=== PATIENT | male | born 1960 | race Caucasian/White ===

== ENCOUNTER 2016-12-24 12:50 | Observation (INO) | payer MEDICARE, OTHER ==
[2016-12-24] VITALS (8 sets, daily range): BP systolic 119–127; BP diastolic 57–72; PULSE 74–88; RESP 18–24; TEMP 97.2–97.5; O2SAT 88–95
[~2016-12-24] VITALS: Ht 175.3 cm; Wt 102.3 kg
[~2016-12-24 12:50] MED LIST: ALLO100T PO; ALPR0.25 PO; ASPI81TA11 PO; BUME2TAB PO; CLOP75 PO; COLC1TAB7 PO; ISOS30TA17 PO; LYRI50CA2 PO; METO50TA PO; NITR0.4S SL; PACE200T4 PO; POTA1TAB4 PO; RANI300T PO; TAMS0.4C67 PO; TRAM50TA PO; Z.0.OXYGEN INH; ZOCO80TA PO
--- NOTE | 2016-12-24 13:07 | PD ---
HPI Chief Complaint: Chest Pain Time Seen by Provider: 13:02 Travel History International Travel<30 days: No Contact w/Intl Traveler<30days: No Traveled to known affect area: No History of Present Illness HPI 56yo M with PMH of CAD s/p CABG, cardiac stent, CHF s/p AICD placement, COPD presents to the ED with c/o sob, productive cough for about 1 week but worsening. Pt also with chest pain for 1 day. States it is mainly left sided, constant, nonradiating, squeezing. Denies any fever, n/v, abdominal pain, focal weakness or numbness. Pt uses oxygen 2 L NC at home. Pt's behavioral health care manager is Dr. Brice. [facility] Past Medical History Hx Anticoagulant Therapy: Yes Arthritis: Yes Asthma: Yes Autoimmune Disease: No Blood Disorders: No Anxiety: Yes Depression: Yes Heart Rhythm Problems: Yes (V TACH) Cancer: No Cardiac Catheterization: Yes (X9) Cardiovascular Problems: Yes (VTACH, CAD) High Cholesterol: Yes Chemotherapy: No Chest Pain: Yes Congestive Heart Failure: Yes COPD: Yes Cerebrovascular Accident: Yes (TIA) Coronary Artery Disease: Yes Diabetes: No Diminished Hearing: No Endocrine: No Gastrointestinal Disorders: Yes (GERD) GERD: Yes Gout: Yes Genitourinary: Yes (urinary retention ) Headaches: No Hepatitis: No Hiatal Hernia: No Hypertension: Yes Immune Disorder: No Inguinal Hernia: Yes Implanted Vascular Access Dvce: Yes Insomnia: Yes Kidney Stones: Yes Musculoskeletal: Yes (bursitis left elbow ) Neurologic: Yes Parkinson's Disease: Yes Psychiatric: Yes Reproductive: No Respiratory: Yes (COPD) Migraines: No Myocardial Infarction: Yes Radiation Therapy: No Renal Failure: Yes Seizures: No Shingles: Yes Sleep Apnea: Yes Thyroid Disease: No Triglycerides - High: Yes Ulcer: No Tetanus Vaccination: > 5 Years ?: Not Past Surgical History Abdominal Surgery: Yes (INGUINAL HERNIA) AICD: Yes Appendectomy: Yes Arteriovenous Shunt: No Body Medical Devices: stent-cardiac Cardiac Surgery: Yes ( AICD) Cholecystectomy: Yes Coronary Artery Bypass Graft: Yes (X6) Coronary Stent: Yes (X1) Ear Surgery: No Endocrine Surgery: No Eye Surgery: No Genitourinary Surgery: Yes (CYSTOSCOPY) Gynecologic Surgery: No Insulin Pump: No Joint Replacement: No Neurologic Surgery: No Oral Surgery: No Pacemaker: Yes Thoracic Surgery: Yes (STERNOTOMY) Tonsillectomy: Yes Valve Replacement: Yes Other Surgery: Yes (R INGUNIAL HERNIA REPAIR) Family History Family Hypercholesterolemia: Yes Social History Alcohol Use: No Tobacco Use: No Substance Use: No Allergies-Medications (Allergen,Severity, Reaction): Coded Allergies: Percocet (Verified Allergy, Severe, RASH, 06/22/16) Sulfa (Verified Allergy, Severe, HIVES, 06/22/16) Ativan (Verified Adverse Reaction, Severe, 06/22/16) MAKES PT "CRAZY" Reported Meds & Prescriptions Reported Meds & Active Scripts Active Reported Allopurinol 100 Mg Tab 100 Mg PO BID Alprazolam 0.25 Mg Tab 0.25 Mg PO TID PRN Amiodarone (Amiodarone HCl) 200 Mg Tab 200 Mg PO DAILY Aspirin EC (Aspirin) 81 Mg Tabdr 81 Mg PO DAILY Bumetanide 1 Mg Tab 1 Mg PO AC DINNER Bumetanide 2 Mg Tab 2 Mg PO AC BREAKFAST Plavix (Clopidogrel Bisulfate) 75 Mg Tab 75 Mg PO DAILY Colchicine 0.6 Mg Tab 0.6 Mg PO BID Nitroglycerin SL (Nitroglycerin) 0.4 Mg Subl 0.4 Mg SL DIRECTED PRN ONE TABLET UNDER THE TONGUE NEEDED FOR CHEST PAIN, MAY REPEAT EVERY FIVE MINUTES FOR A TOTAL OF 3 DOSES OR CALL 911 IF NO RELIEF K-Tab (Potassium Chloride) 20 Meq Tab 20 Meq PO BID Isosorbide Mononitrate ER (Isosorbide Mononitrate) 30 Mg Adolph 30 Mg PO DAILY Metoprolol Tartrate 25 Mg Tab 25 Mg PO BID Lyrica (Pregabalin) 50 Mg Cap 50 Mg PO TID Ranitidine (Ranitidine HCl) 300 Mg Tab 300 Mg PO DAILY Zocor (Simvastatin) 80 Mg Tab 80 Mg PO HS Tamsulosin (Tamsulosin HCl) 0.4 Mg Cap 0.4 Mg PO DAILY Tramadol (Tramadol HCl) 50 Mg Tab 50 Mg PO Q4H PRN Sodium Chloride Neb (Sodium Chloride) 0.9 % Neb 3 Ml INH BID [Symbicort Capsule] 1 Cap NEB BID NEB Ipratropium Neb (Ipratropium [place]) 0.5 Mg/2.5 Ml Amp 0.5 Mg NEB TID NEB PRN Breo Ellipta Inh (Fluticasone/Vilanterol) 100-25 Mcg/Act Inh 1 Puff INH DAILY Use daily at the same time. Proair Respiclick Inh (Albuterol Sulfate) 90 Mcg/Act Aerp 2 Puff INH Q6H PRN Flovent Hfa 12 GM Inh (Fluticasone Propionate) 110 Mcg/Act Inh 2 Puff INH BID Review of Systems Except as stated in HPI: all other systems reviewed are Neg Physical Exam Narrative GENERAL: 56yo M in moderate distress. SKIN: Warm and dry. HEAD: Atraumatic. Normocephalic. EYES: Pupils equal and round. No scleral icterus. No injection or drainage. ENT: No nasal bleeding or discharge. Mucous membranes pink and moist. NECK: Trachea midline. No JVD. CARDIOVASCULAR: Regular rate and rhythm. No murmur appreciated. RESPIRATORY: Wheezing bilaterally. GASTROINTESTINAL: Abdomen soft, non-tender, nondistended. No rebound tenderness or guarding. MUSCULOSKELETAL: No obvious deformities. No clubbing. No cyanosis. No edema. NEUROLOGICAL: Awake and alert. No obvious cranial nerve deficits. Motor grossly within normal limits. Normal speech. PSYCHIATRIC: Appropriate mood and affect; insight and judgment normal. Data Data Last Documented VS Vital Signs Date Time Temp Pulse Resp B/P Pulse Ox O2 Delivery O2 Flow Rate FiO2 12/24/16 13:41 24 94 Nasal Cannula 12/24/16 13:13 2.00 12/24/16 13:01 80 12/24/16 12:56 119/72 12/24/16 12:52 97.5 Orders Electrocardiogram (12/24/16 ) Complete Blood Count With Diff (12/24/16 13:03) Basic Metabolic Panel (Bmp) (12/24/16 13:03) B-Type Natriuretic Peptide (12/24/16 13:03) Act Partial Throm Time (Ptt) (12/24/16 13:03) Prothrombin Time / Inr (Pt) (12/24/16 13:03) Magnesium (Mg) (12/24/16 13:03) Ckmb (Isoenzyme) Profile (12/24/16 13:03) Troponin I (12/24/16 13:03) Arterial Blood Gas (Abg) (12/24/16 13:03) Influenzae A/B Antigen (12/24/16 13:03) Blood Culture (12/24/16 13:03) Iv Access Insert/Monitor (12/24/16 13:03) Ecg Monitoring (12/24/16 13:03) Oximetry (12/24/16 13:03) Oxygen Administration (12/24/16 13:03) Chest, Single Ap (12/24/16 13:03) Sodium Chloride 0.9% Flush (Ns Flush) (12/24/16 13:15) Methylprednisolone So Succ Inj (Solumedr (12/24/16 13:15) Albuterol-Ipratropium Neb (Duoneb Neb) (12/24/16 13:15) Lactic Acid Sepsis Protocol (12/24/16 13:03) Aspirin Chew (Aspirin Chew) (12/24/16 15:00) Nitroglycerin Sl (Nitrostat Sl) (12/24/16 15:00) Ceftriaxone Inj (Rocephin Inj) (12/24/16 15:00) Azithromycin Inj (Zithromax Inj) (12/24/16 15:00) Admit Order (Ed Use Only) (12/24/16 15:00) Labs Laboratory Tests Test 12/24/16 12/24/16 12/24/16 13:17 13:20 13:50 White Blood Count 12.0 TH/MM3 Red Blood Count 5.18 MIL/MM3 Hemoglobin 14.0 GM/DL Hematocrit 42.6 % Mean Corpuscular Volume 82.2 FL Mean Corpuscular Hemoglobin 27.0 PG Mean Corpuscular Hemoglobin 32.9 % Concent Red Cell Distribution Width 17.2 % Platelet Count 225 TH/MM3 Mean Platelet Volume 9.0 FL Neutrophils (%) (Auto) 80.5 % Lymphocytes (%) (Auto) 7.0 % Monocytes (%) (Auto) 11.0 % Eosinophils (%) (Auto) 0.8 % Basophils (%) (Auto) 0.7 % Neutrophils # (Auto) 9.6 TH/MM3 Lymphocytes # (Auto) 0.8 TH/MM3 Monocytes # (Auto) 1.3 TH/MM3 Eosinophils # (Auto) 0.1 TH/MM3 Basophils # (Auto) 0.1 TH/MM3 CBC Comment DIFF FINAL Differential Comment Prothrombin Time 11.2 SEC Prothromb Time International 1.0 RATIO Ratio Activated Partial 23.4 SEC Thromboplast Time Lactic Acid Level 1.2 mmol/L B-Type Natriuretic Peptide 37 PG/ML Blood Gas Puncture Site LT RADIAL Blood Gas Patient Temperature 98.6 Blood Gas HCO3 31 mmol/L Blood Gas Base Excess 6.6 mmol/L Blood Gas Oxygen Saturation 93 % Arterial Blood pH 7.43 Arterial Blood Partial 48 mmHg Pressure CO2 Arterial Blood Partial 71 mmHG Pressure O2 Arterial Blood Oxygen Content 17.9 Vol % Arterial Blood 1.6 % Carboxyhemoglobin Arterial Blood Methemoglobin 0.6 % Blood Gas Hemoglobin 13.7 G/DL Oxygen Delivery Device NASAL CANNULA Blood Gas Liter Flow 2 L/M Sodium Level 138 MEQ/L Potassium Level 4.9 MEQ/L Chloride Level 100 MEQ/L Carbon Dioxide Level 30.5 MEQ/L Anion Gap 8 MEQ/L Blood Urea Nitrogen 23 MG/DL Creatinine 1.95 MG/DL Estimat Glomerular Filtration 36 ML/MIN Rate Random Glucose 105 MG/DL Calcium Level 8.7 MG/DL Magnesium Level 2.1 MG/DL Total Creatine Kinase 90 U/L Troponin I LESS THAN 0.02 NG/ML MDM Medical Decision Making Medical Screen Exam Complete: Yes Emergency Medical Condition: Yes Interpretation(s) EKG: NSR 77bpm. LAD. LBBB. Q wave III, aVF. Differential Diagnosis Pneumonia vs. COPD exacerbation vs. ACS vs. CHF exacerbation Narrative Course 56yo M with CAD, COPD, CHF here with coughing and sob for 1 week. Pt now also with left sided chest pain today. Labs reviewed, mild leukocytosis at 12.0. BNP 37. Lactic acid normal at 1.2. Troponin negative. BUN/creatinine elevated at 23/1.95 which is at baseline compared to 06/20/16. ABG showed compensated respiratory alkalosis with pH 7.43, pCO2 48 and HCO3 31. Saturation is 93% on 2L NC which is what he is on at home. Pt reevaluated at bedside. Pt states he feels slightly less sob after duonebs x3 and methylprednisolone 125mg IVP. Still with intermittent chest pain on left. Pt took his aspirin 81mg and plavix at home. Pt given another 81mg aspirin and sublingual nitroglycerin PRN chest pain. CXR reviewed by me and appears to have right pleural effusion/infiltrate. Given pt's history of productive cough, elevated WBC, will cover with azithromycin and ceftriaxone. Blood cultures has already been drawn. Official CXR showed scattered atelectatic changes bilaterally and chronic elevation of right hemidiaphragm. Also concern with his chest pain so will admit with serial EKG and cardiac enzymes. Discussed with Dr. Finn and accepted to his service. Diagnosis Primary Impression: Chest pain Qualified Code: R07.9 - Chest pain, unspecified type Admitting Information Admitting Physician Requests: Observation Scripts Guaifenesin ER 12 HR (Mucinex ER 12 HR)600 Mg [id number] Mg PO BID 10 Days Prov:Mahad Finn MD 12/25/16 Prednisone 10 Mg Tab10 Mg PO DIRECTED 10 Days Ref 0 20mg po bid x 3 days, 10mg po bid x 3 days, 10mg po daily x 4 days Prov:Mahad Finn MD 12/25/16 Azithromycin (Zithromax Z-Nilo)250 Mg [id number] Mg PO DIRECTED #1 DSPK Ref 0 500 MG (2 tabs) day 1, then 1 tab days 2-5. Prov:Mahad Finn MD 12/25/16 Amoxicillin-Clavulanate (Augmentin)500-125 mg [id number] Mg PO Q8H 10 Days Ref 0 Prov:Mahad Finn MD 12/25/16 Dannielle Ureña DO Dec 24, 2016 13:07
[2016-12-24] MEDS: RESP: ALBUTEROL 2.5 MG/IPRATROPIUM 0.5 MG NEB (SCH) INH (13:11)
[2016-12-24] MEDS ORDERED: methylPREDNISolone SOD SUCC 125 MG/2 ML VIAL IVP ONE (13:15)
[2016-12-24] MEDS ORDERED: SODIUM CHLORIDE 0.9% FLUSH 5 ML FLUSH IVF PRN (13:15)
[2016-12-24 13:28] LABS: AUTOMATED NEUTROPHIL # 9.6 TH/MM3 (1.8-7.7); BASOPHIL # 0.1 TH/MM3 (0-0.2); BASOPHIL % 0.7 % (0.0-2.0); EOSINOPHIL # 0.1 TH/MM3 (0-0.4); EOSINOPHIL % 0.8 % (0.0-4.0); HEMATOCRIT 42.6 % (39.0-51.0); HEMO FLAGS DIFF FINAL; LYMPHOCYTE # 0.8 TH/MM3 (1.0-4.8); MEAN CELL VOLUME 82.2 FL (80.0-100.0); MEAN CORPUSCULAR HGB CONC 32.9 % (32.0-36.0); NEUT % 80.5 % (16.0-70.0); PLATELET COUNT 225 TH/MM3 (150-450); RED BLOOD COUNT 5.18 MIL/MM3 (4.50-5.90); RED CELL DISTRIBUTION WIDTH 17.2 % (11.6-17.2)
[2016-12-24 13:29] LABS: BLOOD GAS BASE EXCESS 6.6 mmol/L (-2-2); BLOOD GAS CARBOXYHEMOGLOBIN 1.6 % (0-4); BLOOD GAS HCO3 31 mmol/L (22-26); BLOOD GAS METHEMOGLOBIN 0.6 % (0-2); BLOOD GAS O2 HGB SATURATION 93 % (90-100); BLOOD GAS OXYGEN CONTENT 17.9 Vol % (12.0-20.0); BLOOD GAS PCO2 48 mmHg (38-42); BLOOD GAS PO2 71 mmHG (61-120); BLOOD GAS TOTAL HGB 13.7 G/DL (12.0-16.0); CRITICAL VALUE NO; DRAW SITE LT RADIAL; LITER FLOW 2 L/M; NUMBER OF ARTERIAL PUNCTURES 2; OXYGEN DEVICE NASAL CANNULA; STAT YES; TEMP CORR TO 98.6; ULNAR PULSE PRESENT
[2016-12-24 13:39] LABS: PROTHROMBIN TIME - PATIENT 11.2 SEC (9.8-11.6)
[2016-12-24 13:40] LABS: APTT (PATIENT) 23.4 SEC (24.3-30.1)
[2016-12-24 14:25] LABS: ANION GAP 8 MEQ/L (5-15)
[2016-12-24 14:28] LABS: BICARBONATE 30.5 MEQ/L (21.0-32.0); BLOOD UREA NITROGEN 23 MG/DL (7-18); CHLORIDE 100 MEQ/L (98-107); GLOMERULAR FILTRATION RATE 36 ML/MIN (>89); MAGNESIUM 2.1 MG/DL (1.5-2.5); SODIUM (NA) 138 MEQ/L (136-145)
[2016-12-24 14:29] LABS: CREATINE KINASE 90 U/L (39-308); POTASSIUM 4.9 MEQ/L (3.5-5.1)
[2016-12-24] MEDS ORDERED: cefTRIAXone INJ 1,000 MG in SODIUM CHLORIDE 0.9% INJ 100 ML IV ONE ×2 (15:00→17:30)
[2016-12-24] MEDS ORDERED: AZITHROMYCIN INJ 500 MG in SODIUM CHLOR 0.9% 250 ML INJ 250 ML IV ONE (15:00)
[2016-12-24] MEDS ORDERED: ASPIRIN 81 MG CHEW TAB PO ONE (15:00)
--- NOTE | 2016-12-24 15:04 | RADRPT ---
EXAM DATE/TIME: 12/24/2016 13:33 [place] COMPARISON: CHEST SINGLE AP, June 22, 2016, 9:23. INDICATIONS : Shortness of breath. MEDICAL HISTORY : None. SURGICAL HISTORY : None. ENCOUNTER: Initial ACUITY: 1 week PAIN SCORE: 0/10 LOCATION: Bilateral chest FINDINGS: Median sternotomy wires are noted status post cardiac surgery. A left subclavian dual lead pacemaker has its tips in the right atrium and right ventricle. There is no pneumothorax. There is chronic e levation of the right hemidiaphragm. Scattered atelectatic changes are noted bilaterally. CONCLUSION: 1. Scattered atelectatic changes bilaterally. 2. Chronic elevation of the right hemidiaphragm. Rashawn Milligan MD on December 24, 2016 at 14:58 Board Certified Radiologist. This report was verified electronically.
[2016-12-24] MEDS: NITROGLYCERIN 0.4 MG SL 25 TABS/BTL SL SCH ×3 (15:16→16:08)
[2016-12-24] MEDS ORDERED: FLUTI110I INH (15:53)
[2016-12-24] MEDS ORDERED: FLUT1INH INH (15:53)
[2016-12-24] MEDS ORDERED: SYMBICORT NEB (15:53)
[2016-12-24] MEDS ORDERED: ALBU1AER5 INH (15:53)
[2016-12-24] MEDS ORDERED: IPRA0.02 NEB (15:53)
[2016-12-24] MEDS ORDERED: SODI0.9N3 INH (15:54)
[2016-12-24] MEDS ORDERED: LYRI50CA PO (16:03)
[2016-12-24] MEDS ORDERED: BUME2TAB PO (16:03)
[2016-12-24] MEDS ORDERED: NITR1SUB3 SL (16:03)
[2016-12-24] MEDS ORDERED: ALPR0.25 PO (16:03)
[2016-12-24] MEDS ORDERED: RANI300T PO (16:03)
[2016-12-24] MEDS ORDERED: PLAV75TA29 PO (16:03)
[2016-12-24] MEDS ORDERED: ZOCO80TA PO (16:03)
[2016-12-24] MEDS ORDERED: ASPI81TA11 PO (16:03)
[2016-12-24] MEDS ORDERED: ALLO100T PO (16:03)
[2016-12-24] MEDS ORDERED: METO25TA3 PO (16:03)
[2016-12-24] MEDS ORDERED: ISOS30TA3 PO (16:03)
[2016-12-24] MEDS ORDERED: AMIO200T PO (16:03)
[2016-12-24] MEDS ORDERED: POTA1TAB4 PO (16:03)
[2016-12-24] MEDS ORDERED: TAMS0.4C4 PO (16:03)
[2016-12-24] MEDS ORDERED: BUME1TAB PO (16:03)
[2016-12-24] MEDS ORDERED: TRAM50TA PO (16:03)
[2016-12-24] MEDS ORDERED: COLC1TAB15 PO (16:03)
[2016-12-24] MEDS ORDERED: ONDANSETRON HCL 4 MG/2 ML VIAL IV PRN (16:15)
[2016-12-24] MEDS ORDERED: ACETAMINOPHEN 325 MG TAB PO PRN (16:15)
[2016-12-24] MEDS: RESP: ALBUTEROL 2.5 MG/IPRATROPIUM 0.5 MG NEB (SCH) NEB ×2 (16:43→22:07)
[2016-12-24] MEDS ORDERED: ALPRAZolam 0.25 MG TAB PO PRN (16:45)
[2016-12-24] MEDS ORDERED: traMADol HCL 50 MG TAB PO PRN (16:45)
--- NOTE | 2016-12-24 16:50 | HHI.HP ---
HPI Service [facility] Hospitalists Primary Care Physician Dax Montana MD Admission Diagnosis COPD exacerbation, chest pain Chief Complaint: SOB, cough Travel History International Travel<30 Days: No Contact w/Intl Traveler <30 Da: No Traveled to Known Affected Are: No History of Present Illness Mr. Rodriguez is a 56 y/o WM with CAD/hx of NV 9, CHF, CAD, CABG 6, AICD, hypertension, and COPD. [place] [facility] [place] with complaints of SOB and productive cough that began around 5 days ago. He states that he had gone to [place] for the weekend around 10 days ago and was around several people who had been sick. He denies any specific fevers, chills or myalgias. Pt reports that he has been bringing up yellow/green phlegm for the last few days and has been having increased wheezing and SOB. He has had some sinus congestion, rhinorrhea and post-nasal drip. CXR in the ED noted scattered atelectasis changes bilaterally. He was given a dose of Solumedrol, Duoneb, Azithromycin, and Rocephin. Pt states that he weight has been stable at around 223lbs but recently his weight had increased to around 230lbs and he took an extra Bumex and his weight came back down. Pt states that he weighed himself today and he was 222lbs. He has been doing well on Bumex 2mg in AM and 1mg in PM. Pt denies any chest pain, nausea/vomiting, palpitations, abd pain, constipation or diarrhea. Review of Systems Constitutional: DENIES: Fever, Chills Respiratory: COMPLAINS OF: Cough, Wheezing, Sputum production, Shortness of breath Cardiovascular: DENIES: Chest pain, Palpitations, Lower Extremity Edema Gastrointestinal: DENIES: Abdominal pain, Constipation, Diarrhea, Nausea, Vomiting Genitourinary: DENIES: Dysuria Musculoskeletal: DENIES: Back pain, Neck pain Integumentary: DENIES: Rash Neurologic: DENIES: Headache Past Family Social History Past Medical History BPH CAD with hx of NV, last [facility] 02/20 here at [place] Hx of shingles, left arm Hx of CHF, EF 50% on echo from 02/2016 CKD, stage 3. recurrent regina. renal bx 03/22It showed global glomerulosclerosis, acute tubular injury, interstitial fibrosis/tubular injury mild. severe arteriosclerosis. COPD DDD Depression Anxiety GERD HTN Hyperlipidemia Obesity Past Surgical History EPS with radiofrequency ablation ablation of ventricular tachycardia on 06/20/16 Dual-chamber AICD implantation on 02/21/[address] Grider. [facility] (02/21/16) --> noted LAD was totally occluded in its midportion with competitive flow noted, left circumflex had 75-80% stenosis in the proximal position, a subtotal stenosis was then noted and the distal portion of the artery filled by collaterals from the circumflex branches as well as a small ramus branch. This also supplied collaterals to the distal right coronary. The right coronary itself was totally occluded in its midportion with faint bridging collaterals. The left internal mammary artery was grafted into the LAD and was widely patent with good flow in the LAD with some collateralization to the right coronary. Appendectomy CABG x 6 Exploratory mediastinotomy PTCA with multiple stents Cholecystectomy Lipoma removed from his back Right inguinal hernia repair Right knee surgery Bilateral shoulder surgery Tonsillectomy with adenoidectomy Reported Medications Allopurinol 100 Mg Tab 100 Mg PO BID Alprazolam 0.25 Mg Tab 0.25 Mg PO TID PRN Amiodarone (Amiodarone HCl) 200 Mg Tab 200 Mg PO DAILY Aspirin EC (Aspirin) 81 Mg Tabdr 81 Mg PO DAILY Bumetanide 1 Mg Tab 1 Mg PO AC DINNER Bumetanide 2 Mg Tab 2 Mg PO AC BREAKFAST Plavix (Clopidogrel Bisulfate) 75 Mg Tab 75 Mg PO DAILY Colchicine 0.6 Mg Tab 0.6 Mg PO BID Nitroglycerin SL (Nitroglycerin) 0.4 Mg Subl 0.4 Mg SL DIRECTED PRN ONE TABLET UNDER THE TONGUE NEEDED FOR CHEST PAIN, MAY REPEAT EVERY FIVE MINUTES FOR A TOTAL OF 3 DOSES OR CALL 911 IF NO RELIEF K-Tab (Potassium Chloride) 20 Meq Tab 20 Meq PO BID Isosorbide Mononitrate ER (Isosorbide Mononitrate) 30 Mg Adolph 30 Mg PO DAILY Metoprolol Tartrate 25 Mg Tab 25 Mg PO BID Lyrica (Pregabalin) 50 Mg Cap 50 Mg PO TID Ranitidine (Ranitidine HCl) 300 Mg Tab 300 Mg PO DAILY Zocor (Simvastatin) 80 Mg Tab 80 Mg PO HS Tamsulosin (Tamsulosin HCl) 0.4 Mg Cap 0.4 Mg PO DAILY Tramadol (Tramadol HCl) 50 Mg Tab 50 Mg PO Q4H PRN Sodium Chloride Neb (Sodium Chloride) 0.9 % Neb 3 Ml INH BID [Symbicort Capsule] 1 Cap NEB BID NEB Ipratropium Neb (Ipratropium [place]) 0.5 Mg/2.5 Ml Amp 0.5 Mg NEB TID NEB PRN Breo Ellipta Inh (Fluticasone/Vilanterol) 100-25 Mcg/Act Inh 1 Puff INH DAILY Use daily at the same time. Proair Respiclick Inh (Albuterol Sulfate) 90 Mcg/Act Aerp 2 Puff INH Q6H PRN Flovent Hfa 12 GM Inh (Fluticasone Propionate) 110 Mcg/Act Inh 2 Puff INH BID Allergies: Coded Allergies: Percocet (Verified Allergy, Severe, RASH, 06/22/16) Sulfa (Verified Allergy, Severe, HIVES, 06/22/16) Ativan (Verified Adverse Reaction, Severe, 06/22/16) MAKES PT "CRAZY" Family History Mother with hx of CHF Father with hx of CAD Brother with hx of CAD/NV Sister with hx of CVA Social History Denies any regular alcohol or illicit drug use Hx of tobacco use, smoked 1/2 ppd x 4 years, quit around 10 years ago Pt is currently and lives with his . He does not work secondary to disability Physical Exam Vital Signs Vital Signs Date Time Temp Pulse Resp B/P Pulse Ox O2 Delivery O2 Flow Rate FiO2 12/24/16 13:41 24 94 Nasal Cannula 12/24/16 13:40 97 Nasal Cannula 12/24/16 13:13 93 Nasal Cannula 2.00 12/24/16 13:01 80 23 94 Nasal Cannula 2 12/24/16 12:56 81 24 119/72 88 12/24/16 12:52 97.5 83 24 127/70 95 Room Air Physical Exam GENERAL: This is a well-nourished, well-developed patient, in no apparent distress. SKIN: No rashes, ecchymoses or lesions. Cool and dry. HEENT: Atraumatic. Normocephalic. No temporal or scalp tenderness. No scleral icterus. Airway patent. NECK: Trachea midline, supple, nontender. CARDIO: Regular. RESP: Coarse breath sounds bilaterally. ABD: +BS, soft, non-tender, nondistended. EXT: Extremities without clubbing, cyanosis, or edema. NEURO: Awake and alert. Motor and sensory grossly within normal limits. Normal speech. Laboratory Laboratory Tests Test 12/24/16 12/24/16 12/24/16 13:17 13:20 13:50 White Blood Count 12.0 Red Blood Count 5.18 Hemoglobin 14.0 Hematocrit 42.6 Mean Corpuscular Volume 82.2 Mean Corpuscular Hemoglobin 27.0 Mean Corpuscular Hemoglobin 32.9 Concent Red Cell Distribution Width 17.2 Platelet Count 225 Mean Platelet Volume 9.0 Neutrophils (%) (Auto) 80.5 Lymphocytes (%) (Auto) 7.0 Monocytes (%) (Auto) 11.0 Eosinophils (%) (Auto) 0.8 Basophils (%) (Auto) 0.7 Neutrophils # (Auto) 9.6 Lymphocytes # (Auto) 0.8 Monocytes # (Auto) 1.3 Eosinophils # (Auto) 0.1 Basophils # (Auto) 0.1 CBC Comment DIFF FINAL Differential Comment Prothrombin Time 11.2 Prothromb Time International 1.0 Ratio Activated Partial 23.4 Thromboplast Time Lactic Acid Level 1.2 B-Type Natriuretic Peptide 37 Blood Gas Puncture Site LT RADIAL Blood Gas Patient Temperature 98.6 Blood Gas HCO3 31 Blood Gas Base Excess 6.6 Blood Gas Oxygen Saturation 93 Arterial Blood pH 7.43 Arterial Blood Partial 48 Pressure CO2 Arterial Blood Partial 71 Pressure O2 Arterial Blood Oxygen Content 17.9 Arterial Blood 1.6 Carboxyhemoglobin Arterial Blood Methemoglobin 0.6 Blood Gas Hemoglobin 13.7 Oxygen Delivery Device NASAL CANNULA Blood Gas Liter Flow 2 Sodium Level 138 Potassium Level 4.9 Chloride Level 100 Carbon Dioxide Level 30.5 Anion Gap 8 Blood Urea Nitrogen 23 Creatinine 1.95 Estimat Glomerular Filtration 36 Rate Random Glucose 105 Calcium Level 8.7 Magnesium Level 2.1 Total Creatine Kinase 90 Troponin I LESS THAN 0.02 Date/Time Procedure Status Source Growth 12/24/16 13:17 Aerobic Blood Culture Received Blood Peripheral Pending 12/24/16 13:17 Anaerobic Blood Culture Received Blood Peripheral Pending Result Diagram: 12/24/16 1317 12/24/16 1350 Septic Shock Reassessment Heart: Regular rate and rhythm Lungs: Course Skin: Warm Assessment and Plan Problem List: (1) COPD exacerbation Status: Chronic Plan: - Pt presented to the ED with complaints of SOB and productive cough that began around 5 days ago. - He states that he had gone to [place] for the weekend around 10 days ago and was around several people who had been sick. - He denies any specific fevers, chills or myalgias, but has been bringing up yellow/green phlegm for the last few days and has been having increased wheezing and SOB. - CXR in the ED noted scattered atelectasis changes bilaterally. - He was given a dose of Solu-Medrol, Duoneb, Azithromycin, and Rocephin. - Cont. Azithromycin and Rocephin - Duonebs Q4H and Q2H PRN - Solu-Medrol 60mg q6h - Mucinex BID - Budesonide nebs Q12H - Cont. Breo Elipta daily - Cont. Flovent BID - Influenza Antigen - Sputum culture and gram stain - Supportive care - DVT prophylaxis with SCDs (2) Bronchitis Status: Acute Plan: - See above. (3) CHF (congestive heart failure) Status: Chronic Plan: - Pt seems to be well compensated. - Resume home meds - Monitor labs (4) CKD (chronic kidney disease) stage 3, GFR 30-59 ml/min Status: Chronic Plan: - labs are stable. (5) Hypertension Status: Chronic Plan: - Cont. home meds - Monitor Assessment and Plan Patient examined. Assessment and plan formulated with Judy Marinelli PA-C. I agree with the above. copd exac. and bronchitis. sputum and blood cx pending. cont abx. nebs. solumedrol f/u influenza. Physician Certification 2 Midnight Certification Type: Admission for Inpatient Services Order for Inpatient Services The services are ordered in accordance with Medicare regulations or non- Medicare payer requirements, as applicable. In the case of services not specified as inpatient-only, they are appropriately provided as inpatient services in accordance with the 2-midnight benchmark. Estimated LOS (days): 3 3 days is the estimated time the patient will need to remain in the hospital, assuming treatment plan goals are met and no additional complications. Post-Hospital Plan: Home Judy Marinelli Dec 24, 2016 16:50 Mahad Finn MD Dec 24, 2016 20:25
[2016-12-24] MEDS ORDERED: RESP: ALBUTEROL 2.5 MG/IPRATROPIUM 0.5 MG NEB (PRN) NEB (17:00)
[2016-12-24] MEDS: PREGABALIN 25 MG CAP PO SCH (18:58)
[2016-12-24] MEDS: methylPREDNISolone SOD SUCC 125 MG/2 ML VIAL IV PUSH SCH (18:58)
[2016-12-24] MEDS: RESP: BUDESONIDE 0.5 MG/2 ML NEB NEB SCH (20:00)
[2016-12-24] MEDS ORDERED: PRAVASTATIN SOD 80 MG TAB PO SCH (21:00)
[2016-12-24] MEDS ORDERED: SIMVASTATIN 80 MG PO SCH (21:00)
[2016-12-24] MEDS: guaiFENesin E.R. 600 MG TAB PO SCH (22:03)
[2016-12-24] MEDS: POTASSIUM CHLORIDE 20 MEQ CONTROLLED RELEASE TAB PO SCH (22:03)
[2016-12-24] MEDS: METOPROLOL TARTRATE 25 MG TAB PO SCH (22:06)
[2016-12-24] MEDS: INSULIN ASPART SUPPLEMENTAL SCALE SQ SCH (22:09)
[2016-12-25] VITALS (7 sets, daily range): BP systolic 128–132; BP diastolic 68–76; PULSE 65–85; RESP 18–20; TEMP 97.4–98.2; O2SAT 91–94
[2016-12-25] MEDS: RESP: ALBUTEROL 2.5 MG/IPRATROPIUM 0.5 MG NEB (SCH) NEB ×3 (00:27→08:07)
[2016-12-25] MEDS: methylPREDNISolone SOD SUCC 125 MG/2 ML VIAL IV PUSH SCH ×2 (01:32→06:20)
[2016-12-25] MEDS: INSULIN ASPART SUPPLEMENTAL SCALE SQ SCH ×2 (06:23→11:10)
[2016-12-25 06:40] LABS: BASOPHIL % 0.1 % (0.0-2.0); HEMATOCRIT 39.6 % (39.0-51.0); HEMO FLAGS DIFF FINAL; LYMPH % 2.9 % (9.0-44.0); LYMPHOCYTE # 0.3 TH/MM3 (1.0-4.8); MEAN CELL VOLUME 82.7 FL (80.0-100.0); MEAN CORPUSCULAR HEMOGLOBIN 27.7 PG (27.0-34.0); MEAN CORPUSCULAR HGB CONC 33.5 % (32.0-36.0); PLATELET COUNT 209 TH/MM3 (150-450); RED BLOOD COUNT 4.79 MIL/MM3 (4.50-5.90); RED CELL DISTRIBUTION WIDTH 17.1 % (11.6-17.2); WHITE BLOOD COUNT 10.4 TH/MM3 (4.0-11.0)
[2016-12-25] MEDS ORDERED: BUMETANIDE 1 MG TAB PO SCH ×2 (07:00→16:00)
[2016-12-25 07:07] LABS: MAGNESIUM 2.1 MG/DL (1.5-2.5); POTASSIUM 4.4 MEQ/L (3.5-5.1)
[2016-12-25] MEDS: RESP: BUDESONIDE 0.5 MG/2 ML NEB NEB SCH (08:07)
[2016-12-25] MEDS: guaiFENesin E.R. 600 MG TAB PO SCH (08:38)
[2016-12-25] MEDS: POTASSIUM CHLORIDE 20 MEQ CONTROLLED RELEASE TAB PO SCH (08:39)
[2016-12-25] MEDS: PREGABALIN 25 MG CAP PO SCH (08:39)
[2016-12-25] MEDS: METOPROLOL TARTRATE 25 MG TAB PO SCH (08:39)
[2016-12-25] MEDS ORDERED: FAMOTIDINE 20 MG TAB PO SCH (09:00)
[2016-12-25] MEDS ORDERED: CLOPIDOGREL 75 MG TAB PO SCH (09:00)
[2016-12-25] MEDS ORDERED: TAMSULOSIN HCL 0.4 MG CAP PO SCH (09:00)
[2016-12-25] MEDS ORDERED: AMIODARONE 200 MG TAB PO SCH (09:00)
[2016-12-25] MEDS ORDERED: ISOSORBIDE MONONITRATE 30 MG TAB PO SCH (09:00)
[2016-12-25] MEDS ORDERED: FLUTICASONE 100 MCG/VILANTEROL 25 MCG INHALER INH SCH (09:00)
[2016-12-25] MEDS ORDERED: ASPIRIN EC 81 MG TABEC PO SCH (09:00)
[2016-12-25] MEDS ORDERED: NON-FORMULARY DRUG (Ranitidine 300 MG) PO SCH (09:00)
--- NOTE | 2016-12-25 09:56 | HHI.PR ---
Subjective Remarks insisting on leaving now. he has tickets to a [place]. coming to get him now. Objective Vitals heart reg lung wheezing guerda abd s/nt ext no edema Vital Signs Date Time Temp Pulse Resp B/P Pulse Ox O2 Delivery O2 Flow Rate FiO2 12/25/16 08:33 97.9 85 20 131/68 93 12/25/16 08:07 94 Nasal Cannula 2.00 12/25/16 07:52 Nasal Cannula 2.00 12/25/16 04:42 92 Nasal Cannula 2.00 12/25/16 04:00 97.4 70 20 132/71 92 12/25/16 00:30 91 Nasal Cannula 2.00 12/25/16 00:00 98.2 65 18 128/76 93 12/24/16 22:13 92 Nasal Cannula 2.00 12/24/16 20:44 77 12/24/16 20:00 97.2 74 18 120/69 93 12/24/16 20:00 Nasal Cannula 2.00 12/24/16 18:58 88 20 127/57 95 Room Air 12/24/16 13:41 24 94 Nasal Cannula 12/24/16 13:40 97 Nasal Cannula 12/24/16 13:13 93 Nasal Cannula 2.00 12/24/16 13:01 80 23 94 Nasal Cannula 2 12/24/16 12:56 81 24 119/72 88 12/24/16 12:52 97.5 83 24 127/70 95 Room Air 12/24/16 12/24/16 12/25/16 15:00 23:00 07:00 Intake Total 240 ml 480 ml Balance 240 ml 480 ml Intake Oral 240 ml 480 ml # Voids 1 3 # Bowel Movements 0 1 Result Diagram: 12/25/16 0613 12/25/16 0613 A/P Problem List: (1) COPD exacerbation Status: Chronic Plan: - Pt presented to the ED with complaints of SOB and productive cough that began around 5 days ago. - He states that he had gone to [place] for the weekend around 10 days ago and was around several people who had been sick. - He denies any specific fevers, chills or myalgias, but has been bringing up yellow/green phlegm for the last few days and has been having increased wheezing and SOB. - CXR in the ED noted scattered atelectasis changes bilaterally. - Pt given iv abx/solumedrol/nebs overnight sputum cx pending he reports ambulating in graff and feeling better. on baseline o2. He is still wheezing..but he insists on d/c now as he and have concert tickets for [place]... give dose of neb/abx/steroid now and d/c...but not recommended to dc yet as he will be high risk for decompensation and readmission. (2) Bronchitis Status: Acute Plan: - See above. (3) CHF (congestive heart failure) Status: Chronic Plan: - Pt seems to be well compensated. - Resume home meds - Monitor labs (4) CKD (chronic kidney disease) stage 3, GFR 30-59 ml/min Status: Chronic Plan: - labs are stable. (5) Hypertension Status: Chronic Plan: - Cont. home meds - Monitor Mahad Finn MD Dec 25, 2016 09:56
[2016-12-25] MEDS ORDERED: AZITHROMYCIN 250 MG TAB PO ONE (10:00)
[2016-12-25] MEDS ORDERED: RESP: ALBUTEROL 2.5 MG/IPRATROPIUM 0.5 MG NEB (SCH) NEB ONE (10:00)
[2016-12-25] MEDS ORDERED: methylPREDNISolone SOD SUCC 125 MG/2 ML VIAL IV PUSH ONE (10:00)
[2016-12-25] MEDS ORDERED: AMOXICILLIN/CLAVULANATE K 500 MG TAB PO ONE (10:00)
[2016-12-25] MEDS ORDERED: MUCI600T PO (10:01)
[2016-12-25] MEDS ORDERED: PRED10 PO (10:01)
[2016-12-25] MEDS ORDERED: AUGM500T7 PO (10:01)
[2016-12-25] MEDS ORDERED: ZITHTAB PO (10:01)
--- NOTE | 2016-12-25 10:01 | HHI.DCPOC ---
Discharge Care Plan Diagnosis: (1) COPD exacerbation (2) Bronchitis Goals to Promote Your Health * To prevent worsening of your condition and complications * To maintain your health at the optimal level Directions to Meet Your Goals Take your medications as prescribed Follow your dietary instruction Follow activity as directed Keep your appointments as scheduled Take your immunizations and boosters as scheduled If your symptoms worsen call your PCP, if no PCP go to Urgent Care Center or Emergency Room Smoking is Dangerous to Your Health. Avoid second hand smoke Call the 24-hour hour crisis hotline for domestic abuse at Mahad Finn MD Dec 25, 2016 10:01
--- NOTE | 2016-12-25 10:24 | EKG ---
Date Performed: 12/24/2016 Time Performed: 13:07:38 PTAGE: 56 years EKG: Sinus rhythm WITH FIRST DEGREE AV BLOCK INTRAVENTRICULAR CONDUCTION DELAY INFERIOR MYOCARDIAL INFARCTION ABNORMAL ECG PREVIOUS TRACING : 06/23/2016 02.36 DOCTOR: Jasen Tian Interpretating Date/Time 12/25/2016 10:20:34
--- NOTE | 2016-12-25 11:40 | PD.PN.STU ---
Subjective Remarks 56 year old male with a history of COPD, bronchitis, CHF, CKD, and HTN was admitted one day ago for acute COPD exacerbation. He states that he is doing better today. He completed two laps around the unit without oxygen. He is now able to take deep breaths. His cough has improved. He is still coughing up phlegm, but less today than yesterday. He would really like to be discharged today because he and his have tickets to a concert scheduled for [email or web address] in [place]. Objective Vitals Vital Signs Date Time Temp Pulse Resp B/P Pulse Ox O2 Delivery O2 Flow Rate FiO2 12/25/16 08:33 97.9 85 20 131/68 93 12/25/16 08:07 94 Nasal Cannula 2.00 12/25/16 08:03 79 12/25/16 07:52 Nasal Cannula 2.00 12/25/16 04:42 92 Nasal Cannula 2.00 12/25/16 04:00 97.4 70 20 132/71 92 12/25/16 00:30 91 Nasal Cannula 2.00 12/25/16 00:00 98.2 65 18 128/76 93 12/24/16 22:13 92 Nasal Cannula 2.00 12/24/16 20:44 77 12/24/16 20:00 97.2 74 18 120/69 93 12/24/16 20:00 Nasal Cannula 2.00 12/24/16 18:58 88 20 127/57 95 Room Air 12/24/16 13:41 24 94 Nasal Cannula 12/24/16 13:40 97 Nasal Cannula 12/24/16 13:13 93 Nasal Cannula 2.00 12/24/16 13:01 80 23 94 Nasal Cannula 2 12/24/16 12:56 81 24 119/72 88 12/24/16 12:52 97.5 83 24 127/70 95 Room Air I/O 12/24/16 12/24/16 12/24/16 12/25/16 12/25/16 12/25/16 07:00 15:00 23:00 07:00 15:00 23:00 Intake Total 240 ml 480 ml Balance 240 ml 480 ml Intake Oral 240 ml 480 ml # Voids 1 3 # Bowel Movements 0 1 Result Diagram: 12/25/1661212/25/16612 Objective Remarks GENERAL: Pt is a well developed, well nourished, male who does not appear to be in distress. SKIN: No rashes or lesions. Skin is cool and dry. HEENT: Atraumatic, Normocephalic. No scleral icterus. Patent airway. NECK: Supple, trachea midline. CARDIO: Normal S1 and S2. No murmurs or gallops RESP: Diffuse wheezing bilaterally ABD: Bowel sound present, non-tender EXT: Extremities without clubbing, cyanosis, or edema. NEURO: Awake and alert. Motor and sensory grossly within normal limits. Normal speech. A/P Assessment and Plan (1) COPD exacerbation Status: Chronic Plan: - Pt presented to the ED with complaints of SOB and productive cough that began around 5 days ago. - He denies any specific fevers, chills or myalgias, but has been bringing up yellow/green phlegm for the last few days. Sputum culture is pending. - Pt was given IV Antibiotics, Solu-Medrol, and Nebs overnight - He reports feeling better and ambulating about the halls - Pt is still wheezing but would prefer to be discharged so he and his will can attend a concert tonight - Give a dose of antibiotics, Solu-Medrol, and steroids before patient is discharged. - Pt to continue these medications at home (2) Bronchitis Status: Acute Plan: - See above. (3) CHF (congestive heart failure) Status: Chronic Plan: - Pt seems to be well compensated. - Resume home meds - Monitor labs (4) CKD (chronic kidney disease) stage 3, GFR 30-59 ml/min Status: Chronic Plan: - labs are stable. (5) Hypertension Status: Chronic Plan: - Cont. home meds - Monitor Oanh Quintanilla M3 Dec 25, 2016 11:40
[2016-12-25] MEDS ORDERED: AZITHROMYCIN INJ 500 MG in SODIUM CHLOR 0.9% 250 ML INJ 250 ML IV SCH (15:00)
[2016-12-25] MEDS ORDERED: cefTRIAXone INJ 1,000 MG in SODIUM CHLORIDE 0.9% INJ 100 ML IV SCH (16:00)
== END 2016-12-25 12:24 | disposition hospice, home (50) ==
LOC: NEPA 12:50 → NEDA 15:02 → INTOOBSV 16:14 → OBSVTOIN 16:14 → N04A 19:24 → UNDODISIN 12-25 12:24
PROVIDERS: ADMIT Hospitalist; ATTEND Hospitalist
DX: R07.9 Chest pain, unspecified (principal); J44.1 Chronic obstructive pulmonary disease with (acute) exacerbation; Z95.5 Presence of coronary angioplasty implant and graft; Z95.810 Presence of automatic (implantable) cardiac defibrillator; I50.9 Heart failure, unspecified; I25.10 Atherosclerotic heart disease of native coronary artery without angina pectoris; Z79.01 Long term (current) use of anticoagulants; I47.2 Ventricular tachycardia; Z86.73 Personal history of transient ischemic attack (TIA), and cerebral infarction without residual deficits; K21.9 Gastro-esophageal reflux disease without esophagitis; R33.9 Retention of urine, unspecified; G20 Parkinson's disease; I25.2 Old myocardial infarction; Z79.899 Other long term (current) drug therapy; E87.3 Alkalosis; N18.3 Chronic kidney disease, stage 3 (moderate); E78.5 Hyperlipidemia, unspecified; E66.9 Obesity, unspecified; I25.82 Chronic total occlusion of coronary artery; J98.11 Atelectasis; I12.9 Hypertensive chronic kidney disease with stage 1 through stage 4 chronic kidney disease, or unspecified chronic kidney disease; I44.0 Atrioventricular block, first degree
CPT/HCPCS: 36600; 71010; 80048; 82550; 82805; 82948; 83605; 83735; 83880; 84484; 85025; 85610; 85730; 87040; 87070; 87205; 87804; 93005; 94640; 94664; 96374; 99285; G0378; J0456; J0696; J1815; J2930; J7050; J7626

== ENCOUNTER 2017-02-05 10:53 | Inpatient (IN) | payer OTHER ==
[~2017-02-05] VITALS: Ht 175.3 cm; Wt 104.2 kg
[2017-02-05] VITALS (12 sets, daily range): BP systolic 133–144; BP diastolic 77–84; PULSE 60–70; RESP 15–18; TEMP 97.6–97.9; O2SAT 91–97
[~2017-02-05 10:53] MED LIST changes: +ALBU1AER5 INH; +AMIO200T PO; +AUGM500T7 PO; +BUME1TAB PO; -CLOP75 PO; +COLC1TAB15 PO; -COLC1TAB7 PO; +FLUT1INH INH; +FLUTI110I INH; +IPRA0.02 NEB; -ISOS30TA17 PO; +ISOS30TA3 PO; +LYRI50CA PO; -LYRI50CA2 PO; +METO25TA3 PO; -METO50TA PO; +MUCI600T PO; -NITR0.4S SL; +NITR1SUB3 SL; -PACE200T4 PO; +PLAV75TA29 PO; +PRED10 PO; +SODI0.9N3 INH; +SYMBICORT NEB; +TAMS0.4C4 PO; -TAMS0.4C67 PO; -Z.0.OXYGEN INH; +ZITHTAB PO
[2017-02-05] MEDS ORDERED: BUMETANIDE INJ 1 MG/4 ML VIAL IV PUSH ONE (11:15)
[2017-02-05] MEDS ORDERED: methylPREDNISolone SOD SUCC 125 MG/2 ML VIAL IVP ONE (11:15)
--- NOTE | 2017-02-05 11:21 | PD ---
HPI Chief Complaint: Altered Mental Status Time Seen by Provider: 11:00 Travel History International Travel<30 days: Yes Contact w/Intl Traveler<30days: Yes Name of Country Traveled to: [place] Traveled to known affect area: No History of Present Illness HPI This is a 56-year-old male who has a history of COPD, congestive heart failure, and coronary artery disease who is on 2 L nasal cannula normally who presents to the emergency department with increasing shortness of breath it's been progressive over the past several days, constant, worse with exertion, improved with rest. He says he feels like he can't get a good deep breath. He's had increasing lower extremity swelling. His who is a nurse reports that he's had 30 pounds weight gain over the past 3 weeks. They've been giving him more frequent doses of his Bumex but it's not been working. He also has been using his nebulizers routinely his symptoms are not improving. He does feel like he has a wet cough but hasn't had much sputum production. He denies any fevers or chills. Over the past several days he's had increasing chest discomfort in the left side of his chest is feels like a heaviness and feels like someone sitting on top of his chest. It intermittently radiates between his shoulder blades. 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 PFSH Past Medical History Hx Anticoagulant Therapy: Yes Arthritis: Yes Asthma: Yes Autoimmune Disease: No Blood Disorders: No Anxiety: Yes Depression: No Heart Rhythm Problems: Yes (V TACH) Cancer: No Cardiac Catheterization: Yes (X9) Cardiovascular Problems: Yes (VTACH, CAD) High Cholesterol: Yes Chemotherapy: No Chest Pain: Yes Congestive Heart Failure: Yes COPD: Yes Cerebrovascular Accident: Yes (TIA) Coronary Artery Disease: Yes Diabetes: No Diminished Hearing: No Endocrine: No Gastrointestinal Disorders: Yes (GERD) GERD: Yes Gout: Yes Genitourinary: Yes (urinary retention ) Headaches: No Hepatitis: No Hiatal Hernia: No Hypertension: Yes Immune Disorder: No Inguinal Hernia: Yes Implanted Vascular Access Dvce: Yes Insomnia: Yes Kidney Stones: Yes Musculoskeletal: Yes (bursitis left elbow ,gout) Neurologic: Yes Parkinson's Disease: Yes Psychiatric: Yes Reproductive: No Respiratory: Yes (COPD) Migraines: No Myocardial Infarction: Yes Radiation Therapy: No Renal Failure: Yes Seizures: No Shingles: Yes Sleep Apnea: No Thyroid Disease: No Triglycerides - High: Yes Ulcer: No Past Surgical History Abdominal Surgery: Yes (INGUINAL HERNIA) AICD: Yes Appendectomy: Yes Arteriovenous Shunt: No Body Medical Devices: stent-cardiac Cardiac Surgery: Yes ( AICD, quad bypass 08, double 09) Cholecystectomy: Yes Coronary Artery Bypass Graft: Yes (X6) Coronary Stent: Yes (X1) Ear Surgery: No Endocrine Surgery: No Eye Surgery: No Genitourinary Surgery: Yes (CYSTOSCOPY) Gynecologic Surgery: No Insulin Pump: No Joint Replacement: No Neurologic Surgery: No Oral Surgery: No Pacemaker: Yes Thoracic Surgery: Yes (STERNOTOMY) Tonsillectomy: Yes Valve Replacement: Yes Other Surgery: Yes (R INGUNIAL HERNIA REPAIR) Family History Family Hypercholesterolemia: Yes Social History Alcohol Use: No Tobacco Use: No Substance Use: No Allergies-Medications (Allergen,Severity, Reaction): Coded Allergies: Percocet (Verified Allergy, Severe, RASH, 02/05/17) Sulfa (Verified Allergy, Severe, HIVES, 02/05/17) Ativan (Verified Adverse Reaction, Severe, 02/05/17) MAKES PT "CRAZY" Reported Meds & Prescriptions Reported Meds & Active Scripts Active Mucinex ER 12 HR (Guaifenesin) 600 Mg Adolph 600 Mg PO BID 10 Days Prednisone 10 Mg Tab 10 Mg PO DIRECTED 10 Days 20mg po bid x 3 days, 10mg po bid x 3 days, 10mg po daily x 4 days Zithromax Z-Nilo (Azithromycin) 250 Mg Dspk 250 Mg PO DIRECTED 500 MG (2 tabs) day 1, then 1 tab days 2-5. Augmentin (Amoxicillin-Clavulanate) 500-125 mg Tab 500 Mg PO Q8H 10 Days Reported Allopurinol 100 Mg Tab 100 Mg PO BID Alprazolam 0.25 Mg Tab 0.25 Mg PO TID PRN Amiodarone (Amiodarone HCl) 200 Mg Tab 200 Mg PO DAILY Aspirin EC (Aspirin) 81 Mg Tabdr 81 Mg PO DAILY Bumetanide 1 Mg Tab 1 Mg PO AC DINNER Bumetanide 2 Mg Tab 2 Mg PO AC BREAKFAST Plavix (Clopidogrel Bisulfate) 75 Mg Tab 75 Mg PO DAILY Colchicine 0.6 Mg Tab 0.6 Mg PO BID Nitroglycerin SL (Nitroglycerin) 0.4 Mg Subl 0.4 Mg SL DIRECTED PRN ONE TABLET UNDER THE TONGUE NEEDED FOR CHEST PAIN, MAY REPEAT EVERY FIVE MINUTES FOR A TOTAL OF 3 DOSES OR CALL 911 IF NO RELIEF K-Tab (Potassium Chloride) 20 Meq Tab 20 Meq PO BID Isosorbide Mononitrate ER (Isosorbide Mononitrate) 30 Mg Adolph 30 Mg PO DAILY Metoprolol Tartrate 25 Mg Tab 25 Mg PO BID Lyrica (Pregabalin) 50 Mg Cap 50 Mg PO TID Ranitidine (Ranitidine HCl) 300 Mg Tab 300 Mg PO DAILY Zocor (Simvastatin) 80 Mg Tab 80 Mg PO HS Tamsulosin (Tamsulosin HCl) 0.4 Mg Cap 0.4 Mg PO DAILY Tramadol (Tramadol HCl) 50 Mg Tab 50 Mg PO Q4H PRN Sodium Chloride Neb (Sodium Chloride) 0.9 % Neb 3 Ml INH BID [Symbicort Capsule] 1 Cap NEB BID NEB Ipratropium Neb (Ipratropium [place]) 0.5 Mg/2.5 Ml Amp 0.5 Mg NEB TID NEB PRN Breo Ellipta Inh (Fluticasone/Vilanterol) 100-25 Mcg/Act Inh 1 Puff INH DAILY Use daily at the same time. Proair Respiclick Inh (Albuterol Sulfate) 90 Mcg/Act Aerp 2 Puff INH Q6H PRN Flovent Hfa 12 GM Inh (Fluticasone Propionate) 110 Mcg/Act Inh 2 Puff INH BID Review of Systems Except as stated in HPI: all other systems reviewed are Neg Physical Exam Narrative GENERAL: Somnolent but arousable SKIN: Focused skin assessment warm and dry. HEAD: Atraumatic. Normocephalic. EYES: Pupils equal and round. No injection or drainage. ENT: Moist mucous membranes NECK: Trachea midline. Jugular venous distention CARDIOVASCULAR: Regular rate and rhythm. No murmur appreciated. 2+ pitting edema in the bilateral lower extremities. RESPIRATORY: Diffuse expiratory wheezing GASTROINTESTINAL: Abdomen soft, non-tender, nondistended. MUSCULOSKELETAL: No obvious deformities. NEUROLOGICAL: Awake and alert. No obvious cranial nerve deficits. Moving all extremities. PSYCHIATRIC: Appropriate mood and affect; insight and judgment normal. Data Data Last Documented VS Vital Signs Date Time Temp Pulse Resp B/P Pulse Ox O2 Delivery O2 Flow Rate FiO2 02/05/17 12:03 97 35 02/05/17 11:22 3 02/05/17 11:22 Nasal Cannula 02/05/17 10:56 64 15 133/77 Orders Complete Blood Count With Diff (02/05/17 11:11) Comprehensive Metabolic Panel (02/05/17 11:11) B-Type Natriuretic Peptide (02/05/17 11:11) Act Partial Throm Time (Ptt) (02/05/17 11:11) Prothrombin Time / Inr (Pt) (02/05/17 11:11) Troponin I (02/05/17 11:11) Arterial Blood Gas (Abg) (02/05/17 11:11) Iv Access Insert/Monitor (02/05/17 11:11) Electrocardiogram (02/05/17 11:11) Ecg Monitoring (02/05/17 11:11) Oximetry (02/05/17 11:11) Oxygen Administration (02/05/17 11:11) Chest, Single Ap (02/05/17 11:11) Sodium Chloride 0.9% Flush (Ns Flush) (02/05/17 11:15) Methylprednisolone So Succ Inj (Solumedr (02/05/17 11:15) Albuterol-Ipratropium Neb (Duoneb Neb) (02/05/17 11:15) Bumetanide Inj (Bumex Inj) (02/05/17 11:15) Labs Laboratory Tests Test 02/05/17 02/05/17 11:15 11:37 White Blood Count 7.5 TH/MM3 Red Blood Count 4.39 MIL/MM3 Hemoglobin 12.0 GM/DL Hematocrit 37.1 % Mean Corpuscular Volume 84.6 FL Mean Corpuscular Hemoglobin 27.3 PG Mean Corpuscular Hemoglobin 32.3 % Concent Red Cell Distribution Width 17.9 % Platelet Count 208 TH/MM3 Mean Platelet Volume 8.9 FL Neutrophils (%) (Auto) 75.8 % Lymphocytes (%) (Auto) 11.3 % Monocytes (%) (Auto) 9.9 % Eosinophils (%) (Auto) 2.1 % Basophils (%) (Auto) 0.9 % Neutrophils # (Auto) 5.7 TH/MM3 Lymphocytes # (Auto) 0.8 TH/MM3 Monocytes # (Auto) 0.7 TH/MM3 Eosinophils # (Auto) 0.2 TH/MM3 Basophils # (Auto) 0.1 TH/MM3 CBC Comment DIFF FINAL Differential Comment Prothrombin Time 10.8 SEC Prothromb Time International 1.0 RATIO Ratio Activated Partial 26.4 SEC Thromboplast Time Sodium Level 142 MEQ/L Potassium Level 4.3 MEQ/L Chloride Level 100 MEQ/L Carbon Dioxide Level 39.7 MEQ/L Anion Gap 2 MEQ/L Blood Urea Nitrogen 25 MG/DL Creatinine 1.62 MG/DL Estimat Glomerular Filtration 44 ML/MIN Rate Random Glucose 81 MG/DL Calcium Level 8.8 MG/DL Total Bilirubin 0.3 MG/DL Aspartate Amino Transf 21 U/L (AST/SGOT) Alanine Aminotransferase 42 U/L (ALT/SGPT) Alkaline Phosphatase 87 U/L Troponin I LESS THAN 0.02 NG/ML B-Type Natriuretic Peptide 119 PG/ML Total Protein 6.6 GM/DL Albumin 3.3 GM/DL Blood Gas Puncture Site RT RADIAL Blood Gas Patient Temperature 98.6 Blood Gas HCO3 39 mmol/L Blood Gas Base Excess 12.9 mmol/L Blood Gas Oxygen Saturation 93 % Arterial Blood pH 7.34 Arterial Blood Partial 75 mmHg Pressure CO2 Arterial Blood Partial 77 mmHG Pressure O2 Arterial Blood Oxygen Content 15.8 Vol % Arterial Blood 1.7 % Carboxyhemoglobin Arterial Blood Methemoglobin 0.7 % Blood Gas Hemoglobin 12.0 G/DL Oxygen Delivery Device NASAL CANNULA Blood Gas Liter Flow 3 L/M [facility] Medical Decision Making Medical Screen Exam Complete: Yes Emergency Medical Condition: Yes Medical Record Reviewed: Yes (patient has been admitted in the setting of COPD exacerbation most recently in December) Interpretation(s) EKG: Atrial paced rhythm, Q waves in the inferior leads, QRS is wide with left bundle morphology Mild anemia Bicarbonate is 39.7 Creatinine is 1.6 improved from prior BNP is 119 Troponin is normal Chest x-ray: No acute process Differential Diagnosis Acute myocardial infarction, congestive heart failure, COPD exacerbation, pneumonia, bronchitis Narrative Course This is a 56-year-old male who has a history of congestive heart failure and COPD on 2 L nasal cannula at home who presents to the emergency department with increasing shortness of breath and confusion. His also reports 30 pounds weight gain. Patient was placed on a monitor and an IV was established. He was somewhat somnolent on exam with diffuse wheezing. ABG confirms hypercarbia which appears to be chronic. Labs were obtained which were unremarkable. BNP is indeterminate. Chest x-ray is unrevealing. Patient was treated with steroids , bronchodilators, and a dose of Bumex. His respiratory difficulty appears to be related primarily to his COPD and worsening chronic CO2 retention. He was placed on BiPAP and he will be admitted for continued pulmonary management. Diagnosis Primary Impression: COPD exacerbation Admitting Information Admitting Physician Requests: Admit Miranda Feldman MD February 05, 2017 11:21
[2017-02-05] MEDS: RESP: ALBUTEROL 2.5 MG/IPRATROPIUM 0.5 MG NEB (SCH) INH ×2 (11:29→11:30)
[2017-02-05 11:32] LABS: AUTOMATED NEUTROPHIL # 5.7 TH/MM3 (1.8-7.7); BASOPHIL # 0.1 TH/MM3 (0-0.2); BASOPHIL % 0.9 % (0.0-2.0); EOSINOPHIL # 0.2 TH/MM3 (0-0.4); EOSINOPHIL % 2.1 % (0.0-4.0); HEMATOCRIT 37.1 % (39.0-51.0); HEMO FLAGS DIFF FINAL; LYMPH % 11.3 % (9.0-44.0); LYMPHOCYTE # 0.8 TH/MM3 (1.0-4.8); MEAN CELL VOLUME 84.6 FL (80.0-100.0); MEAN CORPUSCULAR HEMOGLOBIN 27.3 PG (27.0-34.0); MEAN CORPUSCULAR HGB CONC 32.3 % (32.0-36.0); MONO % 9.9 % (0.0-8.0); NEUT % 75.8 % (16.0-70.0); PLATELET COUNT 208 TH/MM3 (150-450); RED BLOOD COUNT 4.39 MIL/MM3 (4.50-5.90); RED CELL DISTRIBUTION WIDTH 17.9 % (11.6-17.2); WHITE BLOOD COUNT 7.5 TH/MM3 (4.0-11.0)
[2017-02-05 11:42] LABS: APTT (PATIENT) 26.4 SEC (24.3-30.1); PROTHROMBIN TIME - PATIENT 10.8 SEC (9.8-11.6)
[2017-02-05 11:47] LABS: BLOOD GAS BASE EXCESS 12.9 mmol/L (-2-2); BLOOD GAS CARBOXYHEMOGLOBIN 1.7 % (0-4); BLOOD GAS HCO3 39 mmol/L (22-26); BLOOD GAS METHEMOGLOBIN 0.7 % (0-2); BLOOD GAS O2 HGB SATURATION 93 % (90-100); BLOOD GAS OXYGEN CONTENT 15.8 Vol % (12.0-20.0); BLOOD GAS PCO2 75 mmHg (38-42); BLOOD GAS PO2 77 mmHG (61-120); TEMP CORR TO 98.6
[2017-02-05 11:48] LABS: CRITICAL VALUE YES; DRAW SITE RT RADIAL; LITER FLOW 3 L/M; NUMBER OF ARTERIAL PUNCTURES 1; OXYGEN DEVICE NASAL CANNULA; STAT YES
[2017-02-05 11:52] LABS: ALKALINE PHOSPHATASE 87 U/L (45-117); ALT (GPT) 42 U/L (12-78); TOTAL BILIRUBIN ADULT 0.3 MG/DL (0.2-1.0)
[2017-02-05 11:54] LABS: ANION GAP 2 MEQ/L (5-15); AST (GOT) 21 U/L (15-37); BICARBONATE 39.7 MEQ/L (21.0-32.0); BLOOD UREA NITROGEN 25 MG/DL (7-18); CHLORIDE 100 MEQ/L (98-107); GLOMERULAR FILTRATION RATE 44 ML/MIN (>89); POTASSIUM 4.3 MEQ/L (3.5-5.1); SODIUM (NA) 142 MEQ/L (136-145)
--- NOTE | 2017-02-05 12:08 | RADRPT ---
EXAM DATE/TIME: 02/05/2017 11:23 [facility] COMPARISON: CHEST SINGLE AP, December 24, 2016, 13:33. INDICATIONS : Short of breath with left side chest pressure and left arm pain. MEDICAL HISTORY : Myocardial infarction. Congestive heart failure. SURGICAL HISTORY : Pacemaker. Angioplasty, AICD ENCOUNTER: Initial ACUITY: 3 days PAIN SCORE: 8/10 LOCATION: Left chest FINDINGS: Median sternotomy wires are noted status post cardiac surgery. A left subclavian dual lead pacemaker has its tip in the right atrium and right ventricle. There is no pneumothorax. There is elevation of the right hemidiaphragm. Scattered atelectactic changes are noted bilaterally. CONCLUSION: 1. Scattered atelectactic changes bilaterally. 2. Chronic elevation of the right hemidiaphragm. Rashawn Milligan MD on February 05, 2017 at 12:00 Board Certified Radiologist. This report was verified electronically.
[2017-02-05 14:47] LABS: BLOOD GAS BASE EXCESS 11.8 mmol/L (-2-2); BLOOD GAS CARBOXYHEMOGLOBIN 1.7 % (0-4); BLOOD GAS HCO3 38 mmol/L (22-26); BLOOD GAS METHEMOGLOBIN 0.6 % (0-2); BLOOD GAS O2 HGB SATURATION 91 % (90-100); BLOOD GAS OXYGEN CONTENT 15.9 Vol % (12.0-20.0); BLOOD GAS PCO2 71 mmHg (38-42); BLOOD GAS PO2 65 mmHG (61-120); BLOOD GAS TOTAL HGB 12.5 G/DL (12.0-16.0); CRITICAL VALUE YES; DRAW SITE RT RADIAL; FIO2 35 %; NUMBER OF ARTERIAL PUNCTURES 1; OXYGEN DEVICE BIPAP; STAT YES; TEMP CORR TO 98.6; VENT SETTINGS IPAP12/EPAP6
--- NOTE | 2017-02-05 16:02 | HHI.HP ---
HPI Service [facility] Hospitalists Primary Care Physician Dax Montana MD Admission Diagnosis COPD, Hypercapnia, CHF Chief Complaint: SOB, weight gain Travel History International Travel<30 Days: Yes Contact w/Intl Traveler <30 Da: Yes Name of Country Traveled to: [place] Traveled to Known Affected Are: No History of Present Illness Mr. Rodriguez is a 56 y/o WM with significant cardiac history to include FL 9, CHF with EF 50% and grade 1 diastolic dysfunction on echo from 02/2016, CAD s/p CABG 6, AICD, hypertension, and COPD. [place] [facility] [place] swelling and weight gain over the last 2 weeks. He states that it started before he left for a cruise around 10 days ago. He states that he went on a cruise and ate foods he wasn't supposed to and started having swelling and then started eating salads. He's been back from the cruise for a few days and has been taking his Bumex and has been diuresing well. He states that currently the swelling on his LE is slightly improving. He states that he was having some cough and sputum production that began a few weeks ago as well. This has not been worsening. His weight went up to 245lbs as of this morning per the pt. He states that his baseline weight is around 225lb. In the ED the patiet was reportedly more confusion and somewhat somnolent. ABG confirmed hypercarbia which appears to be chronic and pt was placed on a BiPAP. Labs were obtained which were unremarkable. BNP is indeterminate. Chest x- ray is unrevealing. Patient was treated with steroids, bronchodilators, and a dose of Bumex. At the time of our examination pts mentation seems to be at his baseline. He is able to provide history appropriately. Review of Systems Constitutional: DENIES: Fever, Chills Eyes: DENIES: Blurred vision, Eye pain Ears, nose, mouth, throat: DENIES: Nasal discharge, Hoarseness, Running Nose Respiratory: COMPLAINS OF: Cough, Wheezing, Shortness of breath, DENIES: Sputum production Cardiovascular: COMPLAINS OF: Chest pain, Dyspnea on Exertion, Lower Extremity Edema Gastrointestinal: DENIES: Abdominal pain, Constipation, Diarrhea, Nausea, Vomiting Genitourinary: DENIES: Dysuria Musculoskeletal: DENIES: Joint pain, Neck pain Integumentary: DENIES: Rash Neurologic: DENIES: Headache Psychiatric: COMPLAINS OF: Confusion Past Family Social History Past Medical History BPH CAD with hx of FL, last [facility] 02/20 here at [place] Hx of shingles, left arm CHF, EF 50% and grade 1 diastolic dysfunction on echo from 02/2016 CKD, stage 3, hx of recurrent regina. renal bx 03/22It showed global glomerulosclerosis, acute tubular injury, interstitial fibrosis/tubular injury mild. Severe arteriosclerosis COPD DDD Depression Anxiety GERD HTN Hyperlipidemia Obesity Past Surgical History EPS with radiofrequency ablation ablation of ventricular tachycardia on 06/20/16 Dual-chamber AICD implantation on 02/21/[address] Grider. [facility] (02/21/16) --> noted LAD was totally occluded in its midportion with competitive flow noted, left circumflex had 75-80% stenosis in the proximal position, a subtotal stenosis was then noted and the distal portion of the artery filled by collaterals from the circumflex branches as well as a small ramus branch. This also supplied collaterals to the distal right coronary. The right coronary itself was totally occluded in its midportion with faint bridging collaterals. The left internal mammary artery was grafted into the LAD and was widely patent with good flow in the LAD with some collateralization to the right coronary. Appendectomy CABG x 6 Exploratory mediastinotomy PTCA with multiple stents Cholecystectomy Lipoma removed from his back Right inguinal hernia repair Right knee surgery Bilateral shoulder surgery Tonsillectomy with adenoidectomy Reported Medications Allopurinol 100 Mg Tab 100 Mg PO BID Alprazolam 0.25 Mg Tab 0.25 Mg PO TID PRN Amiodarone (Amiodarone HCl) 200 Mg Tab 200 Mg PO DAILY Aspirin EC (Aspirin) 81 Mg Tabdr 81 Mg PO DAILY Bumetanide 1 Mg Tab 1 Mg PO AC DINNER Bumetanide 2 Mg Tab 2 Mg PO AC BREAKFAST Plavix (Clopidogrel Bisulfate) 75 Mg Tab 75 Mg PO DAILY Nitroglycerin SL (Nitroglycerin) 0.4 Mg Subl 0.4 Mg SL DIRECTED PRN ONE TABLET UNDER THE TONGUE NEEDED FOR CHEST PAIN, MAY REPEAT EVERY FIVE MINUTES FOR A TOTAL OF 3 DOSES OR CALL 911 IF NO RELIEF K-Tab (Potassium Chloride) 20 Meq Tab 20 Meq PO BID Isosorbide Mononitrate ER (Isosorbide Mononitrate) 30 Mg Adolph 30 Mg PO DAILY Metoprolol Tartrate 25 Mg Tab 25 Mg PO BID Lyrica (Pregabalin) 50 Mg Cap 50 Mg PO TID Ranitidine (Ranitidine HCl) 300 Mg Tab 300 Mg PO DAILY Zocor (Simvastatin) 80 Mg Tab 80 Mg PO HS Tamsulosin (Tamsulosin HCl) 0.4 Mg Cap 0.4 Mg PO DAILY Tramadol (Tramadol HCl) 50 Mg Tab 50 Mg PO Q4H PRN Sodium Chloride Neb (Sodium Chloride) 0.9 % Neb 3 Ml INH BID [Symbicort Capsule] 1 Cap NEB BID NEB Ipratropium Neb (Ipratropium [place]) 0.5 Mg/2.5 Ml Amp 0.5 Mg NEB TID NEB PRN Breo Ellipta Inh (Fluticasone/Vilanterol) 100-25 Mcg/Act Inh 1 Puff INH DAILY Use daily at the same time. Proair Respiclick Inh (Albuterol Sulfate) 90 Mcg/Act Aerp 2 Puff INH Q6H PRN Flovent Hfa 12 GM Inh (Fluticasone Propionate) 110 Mcg/Act Inh 2 Puff INH BID Allergies: Coded Allergies: Percocet (Verified Allergy, Severe, RASH, 02/05/17) Sulfa (Verified Allergy, Severe, HIVES, 02/05/17) Ativan (Verified Adverse Reaction, Severe, 02/05/17) MAKES PT "CRAZY" Family History Mother with hx of CHF Father with hx of CAD Brother with hx of CAD/FL Sister with hx of CVA Social History Denies any regular alcohol or illicit drug use Hx of tobacco use, smoked 1/2 ppd x 4 years, quit around 10 years ago Pt is currently and lives with his . He does not work secondary to disability Physical Exam Vital Signs Vital Signs Date Time Temp Pulse Resp B/P Pulse Ox O2 Delivery O2 Flow Rate FiO2 02/05/17 13:56 97 35 02/05/17 12:03 97 35 02/05/17 11:22 97 3 02/05/17 11:22 97 Nasal Cannula 3 02/05/17 11:13 96 Nasal Cannula 2 02/05/17 10:56 64 15 133/77 91 2 Physical Exam GENERAL: This is a well-nourished, well-developed patient, in no apparent distress. SKIN: No rashes, ecchymoses or lesions. Cool and dry. HEENT: Atraumatic. Normocephalic. No temporal or scalp tenderness. No scleral icterus. Airway patent. NECK: Trachea midline, supple, nontender. CARDIO: Regular . RESP: Coarse breath sounds bilaterally, somewhat rhonchorus and some mild wheeze ABD: +BS, soft, protuberant, non-tender EXT: Bilateral LE pitting edema. NEURO: Awake and alert. Motor and sensory grossly within normal limits. Normal speech. Laboratory Laboratory Tests Test 02/05/17 02/05/17 02/05/17 11:15 11:37 14:37 White Blood Count 7.5 Red Blood Count 4.39 Hemoglobin 12.0 Hematocrit 37.1 Mean Corpuscular Volume 84.6 Mean Corpuscular Hemoglobin 27.3 Mean Corpuscular Hemoglobin 32.3 Concent Red Cell Distribution Width 17.9 Platelet Count 208 Mean Platelet Volume 8.9 Neutrophils (%) (Auto) 75.8 Lymphocytes (%) (Auto) 11.3 Monocytes (%) (Auto) 9.9 Eosinophils (%) (Auto) 2.1 Basophils (%) (Auto) 0.9 Neutrophils # (Auto) 5.7 Lymphocytes # (Auto) 0.8 Monocytes # (Auto) 0.7 Eosinophils # (Auto) 0.2 Basophils # (Auto) 0.1 CBC Comment DIFF FINAL Differential Comment Prothrombin Time 10.8 Prothromb Time International 1.0 Ratio Activated Partial 26.4 Thromboplast Time Sodium Level 142 Potassium Level 4.3 Chloride Level 100 Carbon Dioxide Level 39.7 Anion Gap 2 Blood Urea Nitrogen 25 Creatinine 1.62 Estimat Glomerular Filtration 44 Rate Random Glucose 81 Calcium Level 8.8 Total Bilirubin 0.3 Aspartate Amino Transf 21 (AST/SGOT) Alanine Aminotransferase 42 (ALT/SGPT) Alkaline Phosphatase 87 Troponin I LESS THAN 0.02 B-Type Natriuretic Peptide 119 Total Protein 6.6 Albumin 3.3 Blood Gas Puncture Site RT RADIAL RT RADIAL Blood Gas Patient Temperature 98.6 98.6 Blood Gas HCO3 39 38 Blood Gas Base Excess 12.9 11.8 Blood Gas Oxygen Saturation 93 91 Arterial Blood pH 7.34 7.34 Arterial Blood Partial 75 71 Pressure CO2 Arterial Blood Partial 77 65 Pressure O2 Arterial Blood Oxygen Content 15.8 15.9 Arterial Blood 1.7 1.7 Carboxyhemoglobin Arterial Blood Methemoglobin 0.7 0.6 Blood Gas Hemoglobin 12.0 12.5 Oxygen Delivery Device NASAL CANNULA BIPAP Blood Gas Liter Flow 3 Blood Gas Ventilator Setting IPAP12/[id number] Blood Gas Inspired Oxygen 35 Result Diagram: 02/05/17 1115 02/05/17 1115 Imaging Last Impressions Chest X-Ray 02/05/17 1111 Signed Impressions: Service Date/Time: Sunday, February 05, 2017 11:23 - CONCLUSION: 1. Scattered atelectactic changes bilaterally. 2. Chronic elevation of the right hemidiaphragm. Rashawn Milligan MD Septic Shock Reassessment Heart: Regular rate and rhythm Lungs: Course Skin: Warm Assessment and Plan Problem List: (1) SOB (shortness of breath) Status: Acute Plan: - Pt admitted with worsening SOB, cough, and weight gain which has been progressing over the last 2 weeks or so. He has hx of diastolic CHF and COPD - Pt had recently gone on a cruise and was not eating as well as she should have and started noting worsening of his generalized swelling and SOB which he thinks began before he went on the cruise. - Symptoms are likely multifactorial, pt is definitely volume overloaded with his noted weight gain and edema but on exam seems to have some signs of COPD exacerbation as well. - He is typically on 2L of supplemental O2 at home. - Pt reports a weight gain of around 20lbs over the last 2 weeks. - He states that he had increased his Bumex with some mild improvement and was using his breathing treatments at home as well. - Pt noted to be hypercapnic in the ED and was placed on BiPAP - Pt was given IV Solu-Medrol 125mg, Bumex IB and Duoneb treatment. - Pt will be continued on Solu-Medrol 60mg Q6H, Duonebs Q4H WA and we will continue IV Bumex - Wean off BiPAP as tolerated, ok to be off BiPAP for meals - CXR in AM - Monitor labs - Supportive care - DVT prophylaxis (2) History of CHF (congestive heart failure) Status: Chronic Plan: - See above. (3) COPD (chronic obstructive pulmonary disease) Status: Chronic Plan: - See above. (4) Hypertension Status: Chronic Plan: - Home meds continued. - Monitor BP (5) Hyperlipemia Status: Chronic Plan: - home meds continued (6) CAD (coronary artery disease) Status: Chronic Plan: - Home meds continued. Assessment and Plan Patient examined. Assessment and plan formulated with Judy Marinelli PA-C. I agree with the above. copd exac with hypercapnea and some mild AMS chf with diastolic dysfunction and volume overload weight increase from 225 to 245 plus. iv diuresis. bipap. solumedrol/nebs. Physician Certification 2 Midnight Certification Type: Admission for Inpatient Services Order for Inpatient Services The services are ordered in accordance with Medicare regulations or non- Medicare payer requirements, as applicable. In the case of services not specified as inpatient-only, they are appropriately provided as inpatient services in accordance with the 2-midnight benchmark. Estimated LOS (days): 3 3 days is the estimated time the patient will need to remain in the hospital, assuming treatment plan goals are met and no additional complications. Post-Hospital Plan: Not yet determined Judy Marinelli February 05, 2017 16:02 Mahad Finn MD February 05, 2017 21:05
[2017-02-05] MEDS: RESP: ALBUTEROL 2.5 MG/3 ML NEB (PRN) NEB SCH (16:33)
[2017-02-05] MEDS ORDERED: ONDANSETRON HCL 4 MG/2 ML VIAL IV PRN (17:30)
[2017-02-05] MEDS ORDERED: ACETAMINOPHEN 325 MG TAB PO PRN (17:30)
[2017-02-05] MEDS: METOPROLOL TARTRATE 25 MG TAB PO SCH (20:53)
[2017-02-05] MEDS: SODIUM CHLORIDE 0.9% FLUSH 10 ML FLUSH IVF PRN (20:53)
[2017-02-05] MEDS: POTASSIUM CHLORIDE 20 MEQ CONTROLLED RELEASE TAB PO SCH (20:53)
[2017-02-05] MEDS: ALLOPURINOL 100 MG TAB PO SCH (20:53)
[2017-02-05] MEDS: PREGABALIN 25 MG CAP PO SCH (20:53)
[2017-02-05] MEDS: PRAVASTATIN SOD 80 MG TAB PO SCH (20:53)
[2017-02-05] MEDS: BUMETANIDE INJ 1 MG/4 ML VIAL IV PUSH SCH (20:57)
[2017-02-05] MEDS ORDERED: SIMVASTATIN 80 MG PO SCH (21:00)
[2017-02-05] MEDS: BUDESONIDE-FORMOTEROL 80/4.5 MCG INHALER INH SCH ×2 (21:00→22:29)
[2017-02-05] MEDS: methylPREDNISolone SOD SUCC 125 MG/2 ML VIAL IV PUSH SCH (21:00)
[2017-02-05] MEDS: RESP: ALBUTEROL 2.5 MG/IPRATROPIUM 0.5 MG NEB (SCH) NEB (23:46)
[2017-02-06] VITALS (31 sets, daily range): BP systolic 112–147; BP diastolic 70–87; PULSE 60–92; RESP 18–24; TEMP 97.4–98; O2SAT 91–98
[2017-02-06] MEDS: methylPREDNISolone SOD SUCC 125 MG/2 ML VIAL IV PUSH SCH ×5 (01:55→23:41)
[2017-02-06] MEDS: RESP: ALBUTEROL 2.5 MG/3 ML NEB (PRN) NEB SCH ×2 (04:00→08:53)
[2017-02-06] MEDS: RESP: ALBUTEROL 2.5 MG/IPRATROPIUM 0.5 MG NEB (SCH) NEB ×5 (04:30→19:00)
--- NOTE | 2017-02-06 05:07 | RADRPT ---
EXAM DATE/TIME: 02/06/2017 04:09 [place] COMPARISON: CHEST SINGLE AP, February 05, 2017, 11:23. INDICATIONS : Shortness of breath. MEDICAL HISTORY : Myocardial infarction. Congestive heart failure. SURGICAL HISTORY : Pacemaker. ENCOUNTER: Subsequent ACUITY: 1 day PAIN SCORE: 0/10 LOCATION: Bilateral chest FINDINGS: The cardiac silhouette is enlarged in transverse diameter. There is elevation of the right hemidiaphr agm. A small right sided effusion is present. A defibrillator device is in place via a left sided [place] daniel. CONCLUSION: 1. Cardiomegaly and findings of vascular congestion without overt failure. There has been no signific ant change when compared to the prior exam. Hernan Buchanan MD on February 06, 2017 at 5:05 Board Certified Radiologist. This report was verified electronically.
[2017-02-06 06:26] LABS: AUTOMATED NEUTROPHIL # 4.8 TH/MM3 (1.8-7.7); BASOPHIL % 0.1 % (0.0-2.0); HEMATOCRIT 35.6 % (39.0-51.0); HEMO FLAGS DIFF FINAL; LYMPH % 4.6 % (9.0-44.0); LYMPHOCYTE # 0.2 TH/MM3 (1.0-4.8); MEAN CELL VOLUME 83.7 FL (80.0-100.0); MEAN CORPUSCULAR HEMOGLOBIN 27.9 PG (27.0-34.0); MEAN CORPUSCULAR HGB CONC 33.4 % (32.0-36.0); MONO % 0.7 % (0.0-8.0); NEUT % 94.6 % (16.0-70.0); PLATELET COUNT 198 TH/MM3 (150-450); RED BLOOD COUNT 4.25 MIL/MM3 (4.50-5.90); RED CELL DISTRIBUTION WIDTH 17.4 % (11.6-17.2)
[2017-02-06 06:53] LABS: BICARBONATE 37.6 MEQ/L (21.0-32.0); MAGNESIUM 2.8 MG/DL (1.5-2.5); POTASSIUM 4.1 MEQ/L (3.5-5.1)
[2017-02-06] MEDS ORDERED: TOBRO RIGHT EYE (07:48)
[2017-02-06] MEDS ORDERED: NON-FORMULARY DRUG (Ranitidine 300 MG) PO SCH (09:00)
[2017-02-06] MEDS ORDERED: FAMOTIDINE 20 MG TAB PO SCH (09:00)
[2017-02-06] MEDS: CLOPIDOGREL 75 MG TAB PO SCH (09:01)
[2017-02-06] MEDS: PREGABALIN 25 MG CAP PO SCH ×3 (09:02→18:02)
[2017-02-06] MEDS: METOPROLOL TARTRATE 25 MG TAB PO SCH ×2 (09:02→20:56)
[2017-02-06] MEDS: ASPIRIN EC 81 MG TABEC PO SCH (09:03)
[2017-02-06] MEDS: TAMSULOSIN HCL 0.4 MG CAP PO SCH (09:04)
[2017-02-06] MEDS: BUDESONIDE-FORMOTEROL 80/4.5 MCG INHALER INH SCH ×2 (09:04→20:58)
[2017-02-06] MEDS: ALLOPURINOL 100 MG TAB PO SCH ×2 (09:04→20:56)
[2017-02-06] MEDS: ISOSORBIDE MONONITRATE 30 MG TAB PO SCH (09:04)
[2017-02-06] MEDS: POTASSIUM CHLORIDE 20 MEQ CONTROLLED RELEASE TAB PO SCH ×2 (09:05→20:56)
[2017-02-06] MEDS: BUMETANIDE INJ 1 MG/4 ML VIAL IV PUSH SCH ×2 (09:05→18:02)
[2017-02-06] MEDS: AMIODARONE 200 MG TAB PO SCH (09:30)
--- NOTE | 2017-02-06 09:58 | EKG ---
Date Performed: 02/05/2017 Time Performed: 11:21:10 PTAGE: 56 years EKG: ELECTRONIC ATRIAL PACEMAKER INTRAVENTRICULAR CONDUCTION DELAY INFERIOR MYOCARDIAL INFARCTIO N ABNORMAL ECG PREVIOUS TRACING : 02/05/2017 11.16 DOCTOR: Yoabni Doan Interpretating Date/Time 02/06/2017 09:58:02
--- NOTE | 2017-02-06 10:00 | HHI.PR ---
Subjective Remarks doing much better on 3lnc. oriented on edge of bed. off bipap Objective Vitals heart reg lung rhonci guerda abd s/nt ext 1plus lower ext edema Vital Signs Date Time Temp Pulse Resp B/P Pulse Ox O2 Delivery O2 Flow Rate FiO2 02/06/17 09:00 95 Nasal Cannula 2.00 02/06/17 08:00 68 02/06/17 07:00 85 02/06/17 07:00 97.8 85 18 147/87 95 02/06/17 07:00 Nasal Cannula 3.00 02/06/17 06:00 60 02/06/17 05:00 62 02/06/17 04:34 95 35 02/06/17 04:00 61 02/06/17 04:00 97.4 62 18 114/77 95 02/06/17 04:00 Bi-Pap 02/06/17 03:00 62 02/06/17 02:00 64 02/06/17 01:00 60 02/06/17 00:06 96 35 02/06/17 00:00 98.0 70 20 112/73 94 02/06/17 00:00 Bi-Pap 02/06/17 00:00 73 02/05/17 23:00 64 02/05/17 22:00 66 02/05/17 21:53 20 02/05/17 21:00 66 02/05/17 20:00 68 02/05/17 20:00 97.6 69 18 144/83 95 02/05/17 20:00 Nasal Cannula 3.00 02/05/17 20:00 95 Nasal Cannula 3.00 02/05/17 19:00 70 02/05/17 17:59 97.9 60 18 140/84 97 02/05/17 16:33 96 35 02/05/17 14:58 96 02/05/17 13:56 97 35 02/05/17 12:03 97 35 02/05/17 11:22 97 3 02/05/17 11:22 97 Nasal Cannula 3 02/05/17 11:13 96 Nasal Cannula 2 02/05/17 10:56 64 15 133/77 91 2 02/05/17 02/05/17 02/06/17 15:00 23:00 07:00 Intake Total 240 ml Output Total 1000 ml Balance -760 ml Intake Oral 240 ml Output Urine Total 1000 ml # Voids 2 # Bowel Movements 0 Result Diagram: 02/06/17 0610 02/06/17 0610 Imaging Last Impressions Chest X-Ray 02/05/17 1111 Signed Impressions: Service Date/Time: Sunday, February 05, 2017 11:23 - CONCLUSION: 1. Scattered atelectactic changes bilaterally. 2. Chronic elevation of the right hemidiaphragm. Rashawn Milligan MD A/P Problem List: (1) COPD (chronic obstructive pulmonary disease) Status: Chronic Plan: - Pt admitted with worsening SOB, cough, and weight gain which has been progressing over the last 2 weeks or so. He has hx of diastolic CHF and COPD - Pt had recently gone on a cruise and was not eating as well as she should have and started noting worsening of his generalized swelling and SOB which he thinks began before he went on the cruise. - Symptoms are likely multifactorial, pt is definitely volume overloaded with his noted weight gain and edema but on exam seems to have some signs of COPD exacerbation as well. - He is typically on 2L of supplemental O2 at home. - Pt reports a weight gain of around 20lbs over the last 2 weeks. - He states that he had increased his Bumex with some mild improvement and was using his breathing treatments at home as well. - Pt noted to be hypercapnic in the ED and was placed on BiPAP admitted for diastolic chf exacerbation and copd with hypercapneic resp failure and delirium. clinically improving. off bipap cont iv diuresis. still 20 pounds over baseline cont solumedrol and nebs and plan for taper. wean o2 oob. ambulate dvt prophylaxis. (2) History of CHF (congestive heart failure) Status: Acute Plan: - See above. (3) Hypertension Status: Chronic Plan: - Home meds continued. - Monitor BP (4) Hyperlipemia Status: Chronic Plan: - home meds continued (5) CAD (coronary artery disease) Status: Chronic Plan: - Home meds continued. Mahad Finn MD February 06, 2017 09:59
[2017-02-06] MEDS ORDERED: PILL SPLITTER OTHER PRN (12:15)
[2017-02-06] MEDS: TOBRAMYCIN 0.3%/DEXAMETHASONE 0.1% OPHT SUSP 5 ML BTL RIGHT EYE SCH ×3 (12:23→23:41)
[2017-02-06] MEDS: PRAVASTATIN SOD 80 MG TAB PO SCH (20:55)
[2017-02-06] MEDS: FAMOTIDINE 20 MG TAB PO SCH (20:56)
[2017-02-07] VITALS (24 sets, daily range): BP systolic 117–128; BP diastolic 66–79; PULSE 62–101; RESP 16–18; TEMP 97.5–98.1; O2SAT 92–98
[2017-02-07] MEDS: RESP: ALBUTEROL 2.5 MG/IPRATROPIUM 0.5 MG NEB (SCH) NEB ×7 (01:00→23:17)
[2017-02-07] MEDS: methylPREDNISolone SOD SUCC 125 MG/2 ML VIAL IV PUSH SCH (05:47)
[2017-02-07] MEDS: TOBRAMYCIN 0.3%/DEXAMETHASONE 0.1% OPHT SUSP 5 ML BTL RIGHT EYE SCH ×3 (05:48→18:26)
[2017-02-07 06:45] LABS: BICARBONATE 35.6 MEQ/L (21.0-32.0)
[2017-02-07] MEDS: BUMETANIDE INJ 1 MG/4 ML VIAL IV PUSH SCH ×2 (08:39→18:26)
[2017-02-07] MEDS: ISOSORBIDE MONONITRATE 30 MG TAB PO SCH (08:39)
[2017-02-07] MEDS: TAMSULOSIN HCL 0.4 MG CAP PO SCH (08:39)
[2017-02-07] MEDS: PREGABALIN 25 MG CAP PO SCH ×3 (08:40→18:26)
[2017-02-07] MEDS: FAMOTIDINE 20 MG TAB PO SCH ×2 (08:40→21:15)
[2017-02-07] MEDS: CLOPIDOGREL 75 MG TAB PO SCH (08:40)
[2017-02-07] MEDS: POTASSIUM CHLORIDE 20 MEQ CONTROLLED RELEASE TAB PO SCH ×2 (08:41→21:16)
[2017-02-07] MEDS: ASPIRIN EC 81 MG TABEC PO SCH (08:41)
[2017-02-07] MEDS: traMADol HCL 50 MG TAB PO PRN ×2 (08:41→21:15)
[2017-02-07] MEDS: ALLOPURINOL 100 MG TAB PO SCH ×2 (08:41→21:16)
[2017-02-07] MEDS: METOPROLOL TARTRATE 25 MG TAB PO SCH ×2 (08:41→21:16)
[2017-02-07] MEDS: AMIODARONE 200 MG TAB PO SCH (08:41)
[2017-02-07] MEDS: BUDESONIDE-FORMOTEROL 80/4.5 MCG INHALER INH SCH ×2 (08:42→21:14)
[2017-02-07] MEDS: ALPRAZolam 0.25 MG TAB PO PRN ×2 (09:04→21:14)
[2017-02-07] MEDS ORDERED: PNEUMOCOCCAL POLYVALENT INJ 25 MCG/0.5 ML SYR IM ONE (10:00)
--- NOTE | 2017-02-07 10:10 | HHI.PR ---
Subjective Remarks seems mentally better. breathing ok still 20pounds over with weight. Objective Vitals heart reg lung rhonci guerda abd s/nt ext no pitting. Vital Signs Date Time Temp Pulse Resp B/P Pulse Ox O2 Delivery O2 Flow Rate FiO2 02/07/17 09:50 18 02/07/17 09:50 18 02/07/17 07:30 94 Nasal Cannula 2.00 02/07/17 07:30 98.1 72 18 123/66 94 02/07/17 07:25 95 Nasal Cannula 2.00 02/07/17 06:00 80 02/07/17 05:00 80 02/07/17 04:15 94 Nasal Cannula 2.00 02/07/17 04:00 66 02/07/17 03:40 97.5 71 16 121/73 97 02/07/17 03:40 98 Bi-Pap 35 02/07/17 03:00 62 02/07/17 02:00 66 02/07/17 01:21 98 35 02/07/17 01:21 98 BiPAP 35 02/07/17 01:02 71 02/07/17 00:00 66 02/06/17 23:45 97.5 67 18 114/74 98 02/06/17 23:45 98 Bi-Pap 35 02/06/17 23:00 67 02/06/17 22:00 76 02/06/17 22:00 Bi-Pap 02/06/17 21:56 91 35 02/06/17 21:00 78 02/06/17 20:00 72 02/06/17 19:45 93 Nasal Cannula 2.00 02/06/17 19:45 97.9 74 24 118/70 93 02/06/17 19:00 72 02/06/17 18:12 79 02/06/17 17:07 75 02/06/17 16:13 74 02/06/17 15:08 91 Nasal Cannula 2.00 02/06/17 15:06 97.9 84 18 145/82 94 02/06/17 15:05 76 02/06/17 15:00 Nasal Cannula 2.00 02/06/17 14:00 77 02/06/17 13:00 80 02/06/17 12:00 86 02/06/17 11:00 97.9 84 18 141/75 95 02/06/17 11:00 Nasal Cannula 2.00 02/06/17 11:00 75 02/06/17 02/06/17 02/07/17 15:00 23:00 07:00 Intake Total 1080 ml 480 ml Output Total 850 ml 775 ml Balance 230 ml -295 ml Intake Oral 1080 ml 480 ml IV Total 0 ml Output Urine Total 850 ml 775 ml # Bowel Movements 2 0 Result Diagram: 02/06/17 0610 02/07/17 0520 Imaging Last Impressions Chest X-Ray 02/05/17 1111 Signed Impressions: Service Date/Time: Sunday, February 05, 2017 11:23 - CONCLUSION: 1. Scattered atelectactic changes bilaterally. 2. Chronic elevation of the right hemidiaphragm. Rashawn Milligan MD A/P Problem List: (1) COPD (chronic obstructive pulmonary disease) Status: Chronic Plan: - Pt admitted with worsening SOB, cough, and weight gain which has been progressing over the last 2 weeks or so. He has hx of diastolic CHF and COPD - Pt had recently gone on a cruise and was not eating as well as she should have and started noting worsening of his generalized swelling and SOB which he thinks began before he went on the cruise. - Symptoms are likely multifactorial, pt is definitely volume overloaded with his noted weight gain and edema but on exam seems to have some signs of COPD exacerbation as well. - He is typically on 2L of supplemental O2 at home. - Pt reports a weight gain of around 20lbs over the last 2 weeks. - He states that he had increased his Bumex with some mild improvement and was using his breathing treatments at home as well. - Pt noted to be hypercapnic in the ED and was placed on BiPAP admitted for diastolic chf exacerbation and copd with hypercapneic resp failure and delirium. clinically improving. But his baseline weight is 225 and still about 20 pounds over off bipap increase iv bumex and monitor weight and cr wean steroid iv to po today wean o2 oob. ambulate dvt prophylaxis. (2) History of CHF (congestive heart failure) Status: Acute Plan: - See above. (3) Hypertension Status: Chronic Plan: - Home meds continued. - Monitor BP (4) Hyperlipemia Status: Chronic Plan: - home meds continued (5) CAD (coronary artery disease) Status: Chronic Plan: - Home meds continued. Mahad Finn MD February 07, 2017 10:10
[2017-02-07] MEDS ORDERED: BUMETANIDE INJ 1 MG/4 ML VIAL IV PUSH ONE (10:15)
[2017-02-07] MEDS: PRAVASTATIN SOD 80 MG TAB PO SCH (21:14)
[2017-02-07] MEDS: predniSONE 10 MG TAB PO SCH (21:16)
[2017-02-08] VITALS (28 sets, daily range): BP systolic 120–142; BP diastolic 72–89; PULSE 59–83; RESP 18–20; TEMP 97.1–98.5; O2SAT 92–98
[2017-02-08] MEDS: TOBRAMYCIN 0.3%/DEXAMETHASONE 0.1% OPHT SUSP 5 ML BTL RIGHT EYE SCH ×4 (00:29→17:59)
[2017-02-08] MEDS: RESP: ALBUTEROL 2.5 MG/IPRATROPIUM 0.5 MG NEB (SCH) NEB ×6 (04:08→23:16)
[2017-02-08 07:32] LABS: BICARBONATE 38.2 MEQ/L (21.0-32.0); POTASSIUM 4.7 MEQ/L (3.5-5.1)
[2017-02-08] MEDS: ALLOPURINOL 100 MG TAB PO SCH ×2 (08:27→22:08)
[2017-02-08] MEDS: AMIODARONE 200 MG TAB PO SCH (08:27)
[2017-02-08] MEDS: predniSONE 10 MG TAB PO SCH (08:28)
[2017-02-08] MEDS: TAMSULOSIN HCL 0.4 MG CAP PO SCH (08:29)
[2017-02-08] MEDS: FAMOTIDINE 20 MG TAB PO SCH ×2 (08:29→22:01)
[2017-02-08] MEDS: POTASSIUM CHLORIDE 20 MEQ CONTROLLED RELEASE TAB PO SCH ×2 (08:29→22:01)
[2017-02-08] MEDS: CLOPIDOGREL 75 MG TAB PO SCH (08:29)
[2017-02-08] MEDS: ISOSORBIDE MONONITRATE 30 MG TAB PO SCH (08:29)
[2017-02-08] MEDS: METOPROLOL TARTRATE 25 MG TAB PO SCH ×2 (08:29→22:01)
[2017-02-08] MEDS: ASPIRIN EC 81 MG TABEC PO SCH (08:29)
[2017-02-08] MEDS: PREGABALIN 25 MG CAP PO SCH ×3 (08:29→17:59)
[2017-02-08] MEDS: SODIUM CHLORIDE 0.9% FLUSH 10 ML FLUSH IVF PRN (08:30)
--- NOTE | 2017-02-08 08:36 | HHI.PR ---
Subjective Remarks doing well except weight still about 20 pounds over Objective Vitals heart reg lung course bs abd s/nt ext trace edema Vital Signs Date Time Temp Pulse Resp B/P Pulse Ox O2 Delivery O2 Flow Rate FiO2 02/08/17 08:02 95 Nasal Cannula 2.00 02/08/17 06:00 62 02/08/17 04:17 96 35 02/08/17 04:00 98.1 62 18 130/89 96 02/08/17 03:00 61 02/08/17 03:00 Bi-Pap 02/08/17 02:11 96 35 02/08/17 01:00 59 02/08/17 00:00 66 02/08/17 00:00 Bi-Pap 02/08/17 00:00 98.1 66 18 131/82 97 02/07/17 22:05 97 35 02/07/17 20:00 94 Nasal Cannula 2.00 02/07/17 20:00 77 02/07/17 20:00 98.1 77 18 128/79 94 02/07/17 19:40 Nasal Cannula 2.00 02/07/17 16:00 68 02/07/17 16:00 97.7 71 18 121/69 92 02/07/17 16:00 92 Nasal Cannula 2.00 02/07/17 15:00 72 02/07/17 14:37 18 02/07/17 14:00 76 02/07/17 13:00 86 02/07/17 12:00 72 02/07/17 11:30 93 Nasal Cannula 2.00 02/07/17 11:30 97.9 101 18 117/68 93 02/07/17 11:00 70 02/07/17 10:00 70 02/07/17 09:50 18 02/07/17 09:00 80 02/07/17 02/07/17 02/08/17 15:00 23:00 07:00 Intake Total 960 ml 360 ml Output Total 1575 ml 1000 ml Balance -615 ml -640 ml Intake Oral 960 ml 360 ml IV Total 0 ml Output Urine Total 1575 ml 1000 ml # Bowel Movements 1 Result Diagram: 02/06/17 0610 02/08/17 0631 Imaging Last Impressions Chest X-Ray 02/05/17 1111 Signed Impressions: Service Date/Time: Sunday, February 05, 2017 11:23 - CONCLUSION: 1. Scattered atelectactic changes bilaterally. 2. Chronic elevation of the right hemidiaphragm. Rashawn Milligan MD A/P Problem List: (1) COPD (chronic obstructive pulmonary disease) Status: Chronic Plan: - Pt admitted with worsening SOB, cough, and weight gain which has been progressing over the last 2 weeks or so. He has hx of diastolic CHF and COPD - Pt had recently gone on a cruise and was not eating as well as she should have and started noting worsening of his generalized swelling and SOB which he thinks began before he went on the cruise. - Symptoms are likely multifactorial, pt is definitely volume overloaded with his noted weight gain and edema but on exam seems to have some signs of COPD exacerbation as well. - He is typically on 2L of supplemental O2 at home. - Pt reports a weight gain of around 20lbs over the last 2 weeks. - He states that he had increased his Bumex with some mild improvement and was using his breathing treatments at home as well. - Pt noted to be hypercapnic in the ED and was placed on BiPAP admitted for diastolic chf exacerbation and copd with hypercapneic resp failure and delirium. clinically improving. But his baseline weight is 225 and still about 20 pounds over off bipap increased iv bumex 5/4 and diuresing but not translating into lost weight. monitor weight and cr lower steroid quickly wean o2 oob. ambulate dvt prophylaxis. (2) History of CHF (congestive heart failure) Status: Acute Plan: - See above. (3) Hypertension Status: Chronic Plan: - Home meds continued. - Monitor BP (4) Hyperlipemia Status: Chronic Plan: - home meds continued (5) CAD (coronary artery disease) Status: Chronic Plan: - Home meds continued. Mahad Finn MD February 08, 2017 08:36
[2017-02-08] MEDS: BUMETANIDE INJ 1 MG/4 ML VIAL IV PUSH SCH ×2 (08:44→17:58)
[2017-02-08] MEDS: BUDESONIDE-FORMOTEROL 80/4.5 MCG INHALER INH SCH ×2 (08:44→22:02)
[2017-02-08] MEDS: traMADol HCL 50 MG TAB PO PRN (17:58)
[2017-02-08] MEDS: PRAVASTATIN SOD 80 MG TAB PO SCH (22:01)
[2017-02-08] MEDS: ALPRAZolam 0.25 MG TAB PO PRN (22:04)
[2017-02-09] VITALS (27 sets, daily range): BP systolic 114–152; BP diastolic 71–90; PULSE 59–100; RESP 16–20; TEMP 97.4–98.6; O2SAT 95–97
[2017-02-09] MEDS: TOBRAMYCIN 0.3%/DEXAMETHASONE 0.1% OPHT SUSP 5 ML BTL RIGHT EYE SCH ×4 (00:15→18:18)
[2017-02-09] MEDS: RESP: ALBUTEROL 2.5 MG/IPRATROPIUM 0.5 MG NEB (SCH) NEB ×4 (03:14→16:20)
[2017-02-09 08:29] LABS: BICARBONATE 37.6 MEQ/L (21.0-32.0); POTASSIUM 4.9 MEQ/L (3.5-5.1)
[2017-02-09] MEDS ORDERED: predniSONE 20 MG TAB PO SCH (09:00)
[2017-02-09] MEDS: ASPIRIN EC 81 MG TABEC PO SCH (09:02)
[2017-02-09] MEDS: ISOSORBIDE MONONITRATE 30 MG TAB PO SCH (09:02)
[2017-02-09] MEDS: AMIODARONE 200 MG TAB PO SCH (09:02)
[2017-02-09] MEDS: ALLOPURINOL 100 MG TAB PO SCH ×2 (09:02→20:43)
[2017-02-09] MEDS: METOPROLOL TARTRATE 25 MG TAB PO SCH ×2 (09:02→20:43)
[2017-02-09] MEDS: CLOPIDOGREL 75 MG TAB PO SCH (09:02)
[2017-02-09] MEDS: FAMOTIDINE 20 MG TAB PO SCH ×2 (09:03→20:43)
[2017-02-09] MEDS: TAMSULOSIN HCL 0.4 MG CAP PO SCH (09:03)
[2017-02-09] MEDS: POTASSIUM CHLORIDE 20 MEQ CONTROLLED RELEASE TAB PO SCH ×2 (09:03→20:43)
[2017-02-09] MEDS: PREGABALIN 25 MG CAP PO SCH ×3 (09:03→18:19)
[2017-02-09] MEDS: BUMETANIDE INJ 1 MG/4 ML VIAL IV PUSH SCH ×3 (09:04→20:44)
[2017-02-09] MEDS: BUDESONIDE-FORMOTEROL 80/4.5 MCG INHALER INH SCH ×2 (09:04→20:44)
[2017-02-09] MEDS: ALPRAZolam 0.25 MG TAB PO PRN (09:08)
[2017-02-09] MEDS: traMADol HCL 50 MG TAB PO PRN (09:08)
--- NOTE | 2017-02-09 09:49 | HHI.PR ---
Subjective Remarks frustrated. diuresing well but weight about the same. Objective Vitals heart reg lung improved air entry abd s/nt ext no edema Vital Signs Date Time Temp Pulse Resp B/P Pulse Ox O2 Delivery O2 Flow Rate FiO2 02/09/17 09:14 80 02/09/17 09:13 97.8 62 20 152/81 95 02/09/17 09:13 95 Nasal Cannula 2.00 02/09/17 08:00 73 02/09/17 07:59 96 Nasal Cannula 2.00 02/09/17 07:30 59 02/09/17 06:00 80 02/09/17 05:00 60 02/09/17 04:00 71 02/09/17 03:00 97.4 100 20 124/84 95 02/09/17 03:00 100 02/09/17 03:00 95 Nasal Cannula 2.00 02/09/17 02:00 65 02/09/17 00:00 63 02/08/17 23:14 98 35 02/08/17 23:00 Bi-Pap 02/08/17 23:00 97.6 60 18 142/80 98 02/08/17 22:00 60 02/08/17 21:23 95 35 02/08/17 21:00 64 02/08/17 20:00 68 02/08/17 19:00 97.1 66 20 120/75 96 02/08/17 19:00 92 Nasal Cannula 2.00 02/08/17 19:00 66 02/08/17 18:00 68 02/08/17 17:00 66 02/08/17 16:00 70 02/08/17 16:00 98.5 83 18 122/83 92 02/08/17 15:06 92 Nasal Cannula 2.00 02/08/17 15:00 92 Nasal Cannula 2.00 02/08/17 15:00 64 02/08/17 14:25 18 02/08/17 14:00 74 02/08/17 13:00 66 02/08/17 12:00 92 Nasal Cannula 2.00 02/08/17 12:00 97.7 61 18 122/72 92 02/08/17 12:00 64 02/08/17 11:00 63 02/08/17 10:00 62 02/08/17 02/08/17 02/09/17 15:00 23:00 07:00 Intake Total 720 ml 360 ml Output Total 2100 ml 700 ml Balance -1380 ml -340 ml Intake Oral 720 ml 360 ml Output Urine Total 2100 ml 700 ml # Bowel Movements 1 Result Diagram: 02/06/17 0610 02/09/17 0740 Imaging Last Impressions Chest X-Ray 02/05/17 1111 Signed Impressions: Service Date/Time: Sunday, February 05, 2017 11:23 - CONCLUSION: 1. Scattered atelectactic changes bilaterally. 2. Chronic elevation of the right hemidiaphragm. Rashawn Milligan MD A/P Problem List: (1) COPD (chronic obstructive pulmonary disease) Status: Chronic Plan: - Pt admitted with worsening SOB, cough, and weight gain which has been progressing over the last 2 weeks or so. He has hx of diastolic CHF and COPD - Pt had recently gone on a cruise and was not eating as well as she should have and started noting worsening of his generalized swelling and SOB which he thinks began before he went on the cruise. - Symptoms are likely multifactorial, pt is definitely volume overloaded with his noted weight gain and edema but on exam seems to have some signs of COPD exacerbation as well. - He is typically on 2L of supplemental O2 at home. - Pt reports a weight gain of around 20lbs over the last 2 weeks. - He states that he had increased his Bumex with some mild improvement and was using his breathing treatments at home as well. - Pt noted to be hypercapnic in the ED and was placed on BiPAP admitted for diastolic chf exacerbation and copd with hypercapneic resp failure and delirium. clinically improving. But his baseline weight is 225 and still about 20 pounds over off bipap increase bumex again. diuresing and renal function stable. weight not dropping monitor weight and cr lower steroid quickly wean o2 oob. ambulate dvt prophylaxis. (2) History of CHF (congestive heart failure) Status: Acute Plan: - See above. (3) Hypertension Status: Chronic Plan: - Home meds continued. - Monitor BP (4) Hyperlipemia Status: Chronic Plan: - home meds continued (5) CAD (coronary artery disease) Status: Chronic Plan: - Home meds continued. Mahad Finn MD February 09, 2017 09:49
[2017-02-09] MEDS: RESP: ALBUTEROL 2.5 MG/IPRATROPIUM 0.5 MG NEB (PRN) NEB (20:35)
[2017-02-09] MEDS: PRAVASTATIN SOD 80 MG TAB PO SCH (20:43)
[2017-02-09] MEDS: SODIUM CHLORIDE 0.9% FLUSH 10 ML FLUSH IVF PRN (20:44)
[2017-02-10] VITALS (27 sets, daily range): BP systolic 116–134; BP diastolic 69–94; PULSE 58–101; RESP 16–18; TEMP 97.8–98.4; O2SAT 92–97
[2017-02-10] MEDS: TOBRAMYCIN 0.3%/DEXAMETHASONE 0.1% OPHT SUSP 5 ML BTL RIGHT EYE SCH ×5 (00:02→23:46)
[2017-02-10 05:58] LABS: BICARBONATE 42.3 MEQ/L (21.0-32.0)
[2017-02-10] MEDS: BUMETANIDE INJ 1 MG/4 ML VIAL IV PUSH SCH ×3 (06:01→21:21)
[2017-02-10] MEDS: RESP: ALBUTEROL 2.5 MG/IPRATROPIUM 0.5 MG NEB (PRN) NEB (07:54)
[2017-02-10] MEDS: BUDESONIDE-FORMOTEROL 80/4.5 MCG INHALER INH SCH ×2 (09:00→21:19)
[2017-02-10] MEDS: FAMOTIDINE 20 MG TAB PO SCH ×2 (09:30→21:20)
[2017-02-10] MEDS: predniSONE 10 MG TAB PO SCH (09:30)
[2017-02-10] MEDS: ISOSORBIDE MONONITRATE 30 MG TAB PO SCH (09:30)
[2017-02-10] MEDS: PREGABALIN 25 MG CAP PO SCH ×3 (09:30→18:22)
[2017-02-10] MEDS: TAMSULOSIN HCL 0.4 MG CAP PO SCH (09:31)
[2017-02-10] MEDS: ALLOPURINOL 100 MG TAB PO SCH ×2 (09:31→21:19)
[2017-02-10] MEDS: METOPROLOL TARTRATE 25 MG TAB PO SCH ×2 (09:31→21:20)
[2017-02-10] MEDS: CLOPIDOGREL 75 MG TAB PO SCH (09:31)
[2017-02-10] MEDS: ASPIRIN EC 81 MG TABEC PO SCH (09:31)
[2017-02-10] MEDS: POTASSIUM CHLORIDE 20 MEQ CONTROLLED RELEASE TAB PO SCH ×2 (09:31→21:20)
[2017-02-10] MEDS: AMIODARONE 200 MG TAB PO SCH (09:31)
[2017-02-10] MEDS: ALPRAZolam 0.25 MG TAB PO PRN (09:38)
[2017-02-10] MEDS: traMADol HCL 50 MG TAB PO PRN (09:39)
--- NOTE | 2017-02-10 10:37 | HHI.PR ---
Subjective Remarks happy. finally losing weight. Objective Vitals heart reg lung improved air entry abd s/nt ext no edema Vital Signs Date Time Temp Pulse Resp B/P Pulse Ox O2 Delivery O2 Flow Rate FiO2 02/10/17 08:00 98.4 86 18 134/94 92 02/10/17 08:00 92 Nasal Cannula 2.00 02/10/17 07:55 95 Nasal Cannula 2.00 02/10/17 06:00 60 02/10/17 05:00 60 02/10/17 04:00 97.8 60 18 116/81 95 02/10/17 04:00 95 Nasal Cannula 2.00 02/10/17 04:00 64 02/10/17 03:00 60 02/10/17 02:00 60 02/10/17 01:00 60 02/10/17 00:00 60 02/09/17 23:00 62 02/09/17 23:00 96 Nasal Cannula 2.00 02/09/17 23:00 98.4 63 18 117/77 96 02/09/17 22:00 64 02/09/17 21:00 66 02/09/17 20:37 97 Nasal Cannula 2.00 02/09/17 20:00 98.2 70 18 114/82 95 02/09/17 20:00 66 02/09/17 20:00 95 Nasal Cannula 2.00 02/09/17 19:19 20 02/09/17 19:00 65 02/09/17 18:46 67 02/09/17 17:00 71 02/09/17 16:00 75 02/09/17 15:31 98.6 70 16 128/90 95 02/09/17 15:30 95 Nasal Cannula 2.00 02/09/17 15:00 68 02/09/17 14:00 68 02/09/17 13:00 68 02/09/17 12:00 60 02/09/17 11:00 97.5 70 16 128/71 95 02/09/17 11:00 95 Nasal Cannula 2.00 02/09/17 11:00 70 02/09/17 02/09/17 02/10/17 15:00 23:00 07:00 Intake Total 850 ml 240 ml Output Total 3900 ml 2600 ml Balance -3050 ml -2360 ml Intake Oral 850 ml 240 ml Output Urine Total 3900 ml 2600 ml # Bowel Movements 1 Result Diagram: 02/06/17 0610 02/10/17 0427 Imaging Last Impressions Chest X-Ray 02/05/17 1111 Signed Impressions: Service Date/Time: Sunday, February 05, 2017 11:23 - CONCLUSION: 1. Scattered atelectactic changes bilaterally. 2. Chronic elevation of the right hemidiaphragm. Rashawn Milligan MD A/P Problem List: (1) COPD (chronic obstructive pulmonary disease) Status: Chronic Plan: - Pt admitted with worsening SOB, cough, and weight gain which has been progressing over the last 2 weeks or so. He has hx of diastolic CHF and COPD - Pt had recently gone on a cruise and was not eating as well as she should have and started noting worsening of his generalized swelling and SOB which he thinks began before he went on the cruise. - Symptoms are likely multifactorial, pt is definitely volume overloaded with his noted weight gain and edema but on exam seems to have some signs of COPD exacerbation as well. - He is typically on 2L of supplemental O2 at home. - Pt reports a weight gain of around 20lbs over the last 2 weeks. - He states that he had increased his Bumex with some mild improvement and was using his breathing treatments at home as well. - Pt noted to be hypercapnic in the ED and was placed on BiPAP admitted for diastolic chf exacerbation and copd with hypercapneic resp failure and delirium. clinically improving. But his baseline weight is 225 and still about 20 pounds over off bipap cont q8hr bumex. diuresing and renal function stable. down to 139 pounds today monitor weight and cr lower steroid quickly wean o2 oob. ambulate dvt prophylaxis. (2) History of CHF (congestive heart failure) Status: Acute Plan: - See above. (3) Hypertension Status: Chronic Plan: - Home meds continued. - Monitor BP (4) Hyperlipemia Status: Chronic Plan: - home meds continued (5) CAD (coronary artery disease) Status: Chronic Plan: - Home meds continued. Mahad Finn MD February 10, 2017 10:37
[2017-02-10] MEDS: RESP: ALBUTEROL 2.5 MG/IPRATROPIUM 0.5 MG NEB (SCH) NEB ×2 (13:07→19:23)
[2017-02-10] MEDS: PRAVASTATIN SOD 80 MG TAB PO SCH (21:19)
[2017-02-11] VITALS (28 sets, daily range): BP systolic 111–141; BP diastolic 71–95; PULSE 59–82; RESP 12–20; TEMP 97.4–98; O2SAT 92–98
[2017-02-11] MEDS: TOBRAMYCIN 0.3%/DEXAMETHASONE 0.1% OPHT SUSP 5 ML BTL RIGHT EYE SCH ×3 (05:56→17:12)
[2017-02-11] MEDS: BUMETANIDE INJ 1 MG/4 ML VIAL IV PUSH SCH ×2 (05:56→21:15)
[2017-02-11 06:48] LABS: BICARBONATE 41.9 MEQ/L (21.0-32.0); POTASSIUM 3.3 MEQ/L (3.5-5.1)
[2017-02-11] MEDS: RESP: ALBUTEROL 2.5 MG/IPRATROPIUM 0.5 MG NEB (SCH) NEB ×3 (08:01→19:38)
[2017-02-11] MEDS: FAMOTIDINE 20 MG TAB PO SCH ×2 (08:51→21:16)
[2017-02-11] MEDS: ALLOPURINOL 100 MG TAB PO SCH ×2 (08:51→21:16)
[2017-02-11] MEDS: PREGABALIN 25 MG CAP PO SCH ×3 (08:51→17:12)
[2017-02-11] MEDS: CLOPIDOGREL 75 MG TAB PO SCH (08:51)
[2017-02-11] MEDS: predniSONE 10 MG TAB PO SCH (08:51)
[2017-02-11] MEDS: BUDESONIDE-FORMOTEROL 80/4.5 MCG INHALER INH SCH ×2 (08:51→21:15)
[2017-02-11] MEDS: TAMSULOSIN HCL 0.4 MG CAP PO SCH (08:51)
[2017-02-11] MEDS: ASPIRIN EC 81 MG TABEC PO SCH (08:52)
[2017-02-11] MEDS: METOPROLOL TARTRATE 25 MG TAB PO SCH ×2 (08:52→21:16)
[2017-02-11] MEDS: POTASSIUM CHLORIDE 20 MEQ CONTROLLED RELEASE TAB PO SCH ×2 (08:52→21:16)
[2017-02-11] MEDS: AMIODARONE 200 MG TAB PO SCH (08:52)
[2017-02-11] MEDS: ISOSORBIDE MONONITRATE 30 MG TAB PO SCH (08:53)
[2017-02-11] MEDS: traMADol HCL 50 MG TAB PO PRN ×3 (08:55→21:16)
--- NOTE | 2017-02-11 09:56 | HHI.PR ---
Subjective Remarks No new complaints. Pt happy about continued weight loss with diuresis Objective Vitals Vital Signs Date Time Temp Pulse Resp B/P Pulse Ox O2 Delivery O2 Flow Rate FiO2 02/11/17 08:03 97 Nasal Cannula 2.00 02/11/17 07:00 97.7 75 18 141/95 96 02/11/17 06:18 76 02/11/17 05:21 59 02/11/17 04:23 96 02/11/17 04:09 59 02/11/17 04:09 97.4 61 12 126/83 92 02/11/17 03:13 Bi-Pap 02/11/17 03:12 60 02/11/17 02:06 60 02/11/17 01:00 59 02/11/17 00:20 96 35 02/11/17 00:00 59 02/11/17 00:00 97.6 64 16 117/79 98 02/10/17 23:24 Bi-Pap 02/10/17 23:19 61 02/10/17 23:19 61 02/10/17 22:41 59 02/10/17 22:41 59 02/10/17 22:10 97 35 02/10/17 21:30 64 02/10/17 21:30 64 02/10/17 20:02 97.9 71 16 130/77 94 02/10/17 20:00 94 Nasal Cannula 2.00 02/10/17 20:00 65 02/10/17 19:23 97 Nasal Cannula 2.00 02/10/17 18:00 58 02/10/17 17:00 74 02/10/17 16:41 18 02/10/17 16:00 97.9 68 18 126/69 95 02/10/17 16:00 58 02/10/17 16:00 95 Nasal Cannula 2.00 02/10/17 15:00 101 02/10/17 14:00 76 02/10/17 13:00 60 02/10/17 12:00 96 02/10/17 11:22 18 02/10/17 11:00 62 02/10/17 10:00 68 02/10/17 02/10/17 02/11/17 15:00 23:00 07:00 Intake Total 720 ml 480 ml Output Total 3150 ml 1400 ml Balance -2430 ml -920 ml Intake Oral 720 ml 480 ml Output Urine Total 3150 ml 1400 ml # Voids 4 # Bowel Movements 1 Result Diagram: 02/11/17 0510 Other Results Laboratory Tests Test 02/10/17 02/11/17 04:27 05:10 Sodium Level 143 MEQ/L 140 MEQ/L Potassium Level 4.0 MEQ/L 3.3 MEQ/L Chloride Level 99 MEQ/L 93 MEQ/L Carbon Dioxide Level 42.3 MEQ/L 41.9 MEQ/L Anion Gap 2 MEQ/L 5 MEQ/L Blood Urea Nitrogen 38 MG/DL 32 MG/DL Creatinine 1.64 MG/DL 1.75 MG/DL Estimat Glomerular Filtration 44 ML/MIN 40 ML/MIN Rate Random Glucose 74 MG/DL 84 MG/DL Calcium Level 8.5 MG/DL 8.4 MG/DL Imaging Last Impressions Chest X-Ray 02/05/17 1111 Signed Impressions: Service Date/Time: Sunday, February 05, 2017 11:23 - CONCLUSION: 1. Scattered atelectactic changes bilaterally. 2. Chronic elevation of the right hemidiaphragm. Rashawn Milligan MD Objective Remarks General: NAD, AAOx3 Chest: CTA Cardiac: Regular Abd: +BS, soft ND/NT Ext: Bilateral ankle and pedal edema, improving. A/P Problem List: (1) COPD (chronic obstructive pulmonary disease) Status: Chronic Plan: - Pt admitted with worsening SOB, cough, and weight gain which has been progressing over the last 2 weeks or so. He has hx of diastolic CHF and COPD - Pt had recently gone on a cruise and was not eating as well as he should have and started noting worsening of his generalized swelling and SOB which he thinks began before he went on the cruise. - Symptoms are likely multifactorial, with diastolic CHF exacerbation and COPD with hypercapnic resp failure and delirium. Pt has been clinically improving. - He is typically on 2L of supplemental O2 at home. - Pt reports a weight gain of around 20lbs over the last 2 weeks. His baseline weight is 225lbs. - Pt has been able to be weaned off BiPAP and is currently on 2L NC - He is currently on Bumex 2mg q8hr and is now down to 236lbs. - Renal function bumped slightly today to Cr 1.75 so we will decreased dose of Bumex to BID and repeat labs in AM - Cont. to monitor weight and cr daily - Steroid is being weaned quickly - Encourage OOB/ambulate, pt did well with PT - DVT prophylaxis. (2) History of CHF (congestive heart failure) Status: Acute Plan: - See above. (3) Hypertension Status: Chronic Plan: - Home meds continued. - Monitor BP (4) Hyperlipemia Status: Chronic Plan: - Home meds continued (5) CAD (coronary artery disease) Status: Chronic Plan: - Home meds continued. Assessment and Plan Patient examined. Assessment and plan formulated with Judy Marinelli PA-C. I agree with the above. Pt interviewed and examined. Pt's IV bumex decreased from TID to BID d/t increasing renal function. Will repeat BMP in AM Watch pt's weight. Judy Marinelli February 11, 2017 09:56 Sunny Jenkins DO February 11, 2017 12:01
[2017-02-11] MEDS ORDERED: POTASSIUM CHLORIDE 10 MEQ CAP PO ONE (10:00)
[2017-02-11] MEDS: ALPRAZolam 0.25 MG TAB PO PRN (11:46)
[2017-02-11 14:10] LABS: CREATINE KINASE 25 U/L (39-308)
[2017-02-11] MEDS: PRAVASTATIN SOD 80 MG TAB PO SCH (21:16)
[2017-02-12] VITALS (21 sets, daily range): BP systolic 122–153; BP diastolic 69–103; PULSE 59–100; RESP 18–22; TEMP 97.6–98; O2SAT 90–97
[2017-02-12] MEDS: traMADol HCL 50 MG TAB PO PRN ×3 (00:37→21:18)
[2017-02-12] MEDS: ALPRAZolam 0.25 MG TAB PO PRN ×3 (00:37→23:16)
[2017-02-12] MEDS: TOBRAMYCIN 0.3%/DEXAMETHASONE 0.1% OPHT SUSP 5 ML BTL RIGHT EYE SCH ×5 (00:37→23:16)
[2017-02-12 05:52] LABS: BICARBONATE 41.8 MEQ/L (21.0-32.0); MAGNESIUM 2.9 MG/DL (1.5-2.5); POTASSIUM 3.8 MEQ/L (3.5-5.1)
[2017-02-12] MEDS: RESP: ALBUTEROL 2.5 MG/IPRATROPIUM 0.5 MG NEB (SCH) NEB ×3 (06:44→21:06)
[2017-02-12] MEDS: BUDESONIDE-FORMOTEROL 80/4.5 MCG INHALER INH SCH ×2 (08:39→21:22)
[2017-02-12] MEDS: BUMETANIDE INJ 1 MG/4 ML VIAL IV PUSH SCH ×2 (08:40→21:20)
[2017-02-12] MEDS: METOPROLOL TARTRATE 25 MG TAB PO SCH ×2 (08:40→21:21)
[2017-02-12] MEDS: FAMOTIDINE 20 MG TAB PO SCH ×2 (08:41→21:21)
[2017-02-12] MEDS: TAMSULOSIN HCL 0.4 MG CAP PO SCH (08:42)
[2017-02-12] MEDS: predniSONE 10 MG TAB PO SCH (08:42)
[2017-02-12] MEDS: AMIODARONE 200 MG TAB PO SCH (08:42)
[2017-02-12] MEDS: ASPIRIN EC 81 MG TABEC PO SCH (08:42)
[2017-02-12] MEDS: ALLOPURINOL 100 MG TAB PO SCH ×2 (08:42→21:20)
[2017-02-12] MEDS: POTASSIUM CHLORIDE 20 MEQ CONTROLLED RELEASE TAB PO SCH ×2 (08:42→21:21)
[2017-02-12] MEDS: CLOPIDOGREL 75 MG TAB PO SCH (08:43)
[2017-02-12] MEDS: PREGABALIN 25 MG CAP PO SCH ×3 (08:43→18:00)
[2017-02-12] MEDS: ISOSORBIDE MONONITRATE 30 MG TAB PO SCH (08:53)
--- NOTE | 2017-02-12 12:20 | HHI.PR ---
Subjective Remarks No new complaints. Objective Vitals Vital Signs Date Time Temp Pulse Resp B/P Pulse Ox O2 Delivery O2 Flow Rate FiO2 02/12/17 11:00 66 02/12/17 10:00 67 02/12/17 09:00 66 02/12/17 08:00 62 02/12/17 08:00 97.9 100 22 140/96 96 02/12/17 08:00 98 Nasal Cannula 2.00 Humidified 02/12/17 06:00 72 02/12/17 05:00 64 02/12/17 04:15 96 Nasal Cannula 2.00 Humidified 02/12/17 04:00 82 20 149/103 93 02/12/17 04:00 60 02/12/17 03:00 76 02/12/17 02:00 71 02/12/17 01:00 70 02/12/17 00:00 98.0 74 18 122/84 97 02/12/17 00:00 96 Nasal Cannula 2.00 Humidified 02/12/17 00:00 65 02/11/17 23:00 70 02/11/17 22:00 60 02/11/17 21:00 76 02/11/17 20:00 97.8 82 18 140/86 95 02/11/17 20:00 60 02/11/17 19:55 96 Nasal Cannula 2.00 Humidified 02/11/17 19:39 97 Nasal Cannula 2.00 02/11/17 19:00 64 02/11/17 18:01 60 02/11/17 17:00 63 02/11/17 16:00 61 02/11/17 15:30 18 02/11/17 15:00 60 02/11/17 15:00 95 Nasal Cannula 2.00 Humidified 02/11/17 15:00 97.7 74 18 111/71 95 02/11/17 14:00 62 02/11/17 13:00 60 02/11/17 02/11/17 02/12/17 15:00 23:00 07:00 Intake Total 240 ml Output Total 2280 ml 1900 ml Balance -2280 ml -1660 ml Intake Oral 240 ml Output Urine Total 2280 ml 1900 ml # Bowel Movements 1 Result Diagram: 02/12/17 0425 Imaging Last Impressions Chest X-Ray 02/05/17 1111 Signed Impressions: Service Date/Time: Sunday, February 05, 2017 11:23 - CONCLUSION: 1. Scattered atelectactic changes bilaterally. 2. Chronic elevation of the right hemidiaphragm. Rashawn Milligan MD Objective Remarks General: NAD, AAOx3 Chest: CTA Cardiac: Regular Abd: +BS, soft ND/NT Ext: Bilateral ankle and pedal edema, improving. A/P Problem List: (1) COPD (chronic obstructive pulmonary disease) Status: Chronic Plan: - Pt admitted with worsening SOB, cough, and weight gain which has been progressing over the last 2 weeks or so. He has hx of diastolic CHF and COPD - Pt had recently gone on a cruise and was not eating as well as he should have and started noting worsening of his generalized swelling and SOB which he thinks began before he went on the cruise. - Symptoms are likely multifactorial, with diastolic CHF exacerbation and COPD with hypercapnic resp failure and delirium. Pt has been clinically improving. - He is typically on 2L of supplemental O2 at home. - Pt reports a weight gain of around 20lbs over the last 2 weeks. His baseline weight is 225lbs. - Pt has been able to be weaned off BiPAP and is currently on 2L NC - Pt's weight is down to 107.5kg (236.5pounds) - Bumex decreased to 2mg IV BID (from TID) d/t increasing Cr - Cr 1.75 (02/11/17) and 1.75 (02/12/17) - Cont. to monitor weight and cr daily - Steroid is being weaned quickly - Encourage OOB/ambulate, pt did well with PT - DVT prophylaxis. (2) History of CHF (congestive heart failure) Status: Acute Plan: - See above. (3) Hypertension Status: Chronic Plan: - Home meds continued. - Monitor BP (4) Hyperlipemia Status: Chronic Plan: - Home meds continued (5) CAD (coronary artery disease) Status: Chronic Plan: - Home meds continued. Sunny Jenkins DO February 12, 2017 12:20
[2017-02-12] MEDS: SODIUM CHLORIDE 0.9% FLUSH 10 ML FLUSH IVF PRN (21:19)
[2017-02-12] MEDS: PRAVASTATIN SOD 80 MG TAB PO SCH (21:21)
[2017-02-13] VITALS (10 sets, daily range): BP systolic 97–134; BP diastolic 60–71; PULSE 59–84; RESP 16–19; TEMP 97.2–97.8; O2SAT 94–98
[2017-02-13] MEDS: traMADol HCL 50 MG TAB PO PRN ×5 (05:24→23:23)
[2017-02-13] MEDS: TOBRAMYCIN 0.3%/DEXAMETHASONE 0.1% OPHT SUSP 5 ML BTL RIGHT EYE SCH ×4 (05:24→23:22)
[2017-02-13] MEDS: RESP: ALBUTEROL 2.5 MG/IPRATROPIUM 0.5 MG NEB (SCH) NEB ×3 (08:18→18:53)
[2017-02-13] MEDS: BUDESONIDE-FORMOTEROL 80/4.5 MCG INHALER INH SCH ×2 (09:10→20:10)
[2017-02-13] MEDS: TAMSULOSIN HCL 0.4 MG CAP PO SCH (09:11)
[2017-02-13] MEDS: ISOSORBIDE MONONITRATE 30 MG TAB PO SCH (09:11)
[2017-02-13] MEDS: ASPIRIN EC 81 MG TABEC PO SCH (09:11)
[2017-02-13] MEDS: predniSONE 10 MG TAB PO SCH (09:11)
[2017-02-13] MEDS: ALLOPURINOL 100 MG TAB PO SCH ×2 (09:11→20:02)
[2017-02-13] MEDS: METOPROLOL TARTRATE 25 MG TAB PO SCH ×2 (09:11→20:03)
[2017-02-13] MEDS: AMIODARONE 200 MG TAB PO SCH (09:11)
[2017-02-13] MEDS: PREGABALIN 25 MG CAP PO SCH ×3 (09:12→17:52)
[2017-02-13] MEDS: CLOPIDOGREL 75 MG TAB PO SCH (09:12)
[2017-02-13] MEDS: POTASSIUM CHLORIDE 20 MEQ CONTROLLED RELEASE TAB PO SCH ×2 (09:12→20:03)
[2017-02-13] MEDS: FAMOTIDINE 20 MG TAB PO SCH ×2 (09:12→20:03)
[2017-02-13] MEDS: BUMETANIDE INJ 1 MG/4 ML VIAL IV PUSH SCH ×2 (09:13→20:02)
[2017-02-13] MEDS: ALPRAZolam 0.25 MG TAB PO PRN (12:46)
--- NOTE | 2017-02-13 13:33 | HHI.PR ---
Subjective Remarks Pt is concerned that he is NOT diuresing as well today. Pt feel that he is having less urine output than usual. Pt also c/o dizziness. Objective Vitals Vital Signs Date Time Temp Pulse Resp B/P Pulse Ox O2 Delivery O2 Flow Rate FiO2 02/13/17 09:15 61 02/13/17 09:15 Nasal Cannula 2.00 02/13/17 08:18 96 Nasal Cannula 2.00 02/13/17 08:01 97.8 72 16 109/70 98 02/13/17 04:00 97.7 60 18 125/60 96 02/13/17 00:00 97.5 60 18 134/71 95 02/12/17 21:21 59 02/12/17 21:10 95 Nasal Cannula 2.00 02/12/17 20:30 Nasal Cannula 2.00 02/12/17 20:00 97.6 61 18 125/69 97 02/12/17 18:00 72 02/12/17 17:31 20 02/12/17 17:00 74 02/12/17 16:00 72 02/12/17 15:00 Nasal Cannula 2.00 02/12/17 15:00 97.9 86 18 153/80 96 02/12/17 15:00 68 02/12/17 14:00 72 02/12/17 02/12/17 02/13/17 15:00 23:00 07:00 Intake Total 240 ml 0 ml Output Total 225 ml 2200 ml Balance 15 ml -2200 ml Intake Oral 240 ml 0 ml Output Urine Total 225 ml 2200 ml Result Diagram: 02/12/17 0425 Imaging Last Impressions Chest X-Ray 02/05/17 1111 Signed Impressions: Service Date/Time: Sunday, February 05, 2017 11:23 - CONCLUSION: 1. Scattered atelectactic changes bilaterally. 2. Chronic elevation of the right hemidiaphragm. Rashawn Milligan MD Objective Remarks General: NAD, AAOx3 Chest: CTA Cardiac: Regular Abd: +BS, soft ND/NT Ext: Bilateral ankle and pedal edema, improving. A/P Problem List: (1) COPD (chronic obstructive pulmonary disease) Status: Chronic Plan: - Pt admitted with worsening SOB, cough, and weight gain which has been progressing over the last 2 weeks or so. He has hx of diastolic CHF and COPD - Pt had recently gone on a cruise and was not eating as well as he should have and started noting worsening of his generalized swelling and SOB which he thinks began before he went on the cruise. - Symptoms are likely multifactorial, with diastolic CHF exacerbation and COPD with hypercapnic resp failure and delirium. Pt has been clinically improving. - He is typically on 2L of supplemental O2 at home. - Pt reports a weight gain of around 20lbs over the last 2 weeks. His baseline weight is 225lbs. - Pt has been able to be weaned off BiPAP and is currently on 2L NC - Pt's weight is down to 107.5kg (236.5pounds) 106.8 (235 pounds) - Bumex decreased to 2mg IV BID (from TID) d/t increasing Cr - Cr 1.75 (02/11/17) and 1.75 (02/12/17), 1.75 (02/13/17) - Cont. to monitor weight and cr daily - Steroid is being weaned quickly - Encourage OOB/ambulate - 02/13/17 - continue current treatment plan as outlined above. - I am hesitant to increase pt's bumex and cause further increase in his creatinine - repeat labs in AM (2) History of CHF (congestive heart failure) Status: Acute Plan: - See above. (3) Hypertension Status: Chronic Plan: - Home meds continued. - Monitor BP (4) Hyperlipemia Status: Chronic Plan: - Home meds continued (5) CAD (coronary artery disease) Status: Chronic Plan: - Home meds continued. Sunny Jenkins DO February 13, 2017 13:32
[2017-02-13] MEDS: PRAVASTATIN SOD 80 MG TAB PO SCH (20:02)
[2017-02-13] MEDS: SODIUM CHLORIDE 0.9% FLUSH 10 ML FLUSH IVF PRN (20:05)
[2017-02-14] VITALS (10 sets, daily range): BP systolic 115–130; BP diastolic 65–82; PULSE 60–85; RESP 16–20; TEMP 96.8–98; O2SAT 94–98
[2017-02-14] MEDS: ALPRAZolam 0.25 MG TAB PO PRN (02:50)
[2017-02-14] MEDS: traMADol HCL 50 MG TAB PO PRN ×5 (05:23→21:24)
[2017-02-14] MEDS: TOBRAMYCIN 0.3%/DEXAMETHASONE 0.1% OPHT SUSP 5 ML BTL RIGHT EYE SCH ×3 (05:25→17:23)
[2017-02-14] MEDS: RESP: ALBUTEROL 2.5 MG/IPRATROPIUM 0.5 MG NEB (SCH) NEB ×2 (07:34→12:40)
[2017-02-14] MEDS: ISOSORBIDE MONONITRATE 30 MG TAB PO SCH (08:34)
[2017-02-14] MEDS: predniSONE 10 MG TAB PO SCH (08:34)
[2017-02-14] MEDS: AMIODARONE 200 MG TAB PO SCH (08:34)
[2017-02-14] MEDS: ALLOPURINOL 100 MG TAB PO SCH ×2 (08:34→21:25)
[2017-02-14] MEDS: TAMSULOSIN HCL 0.4 MG CAP PO SCH (08:35)
[2017-02-14] MEDS: PREGABALIN 25 MG CAP PO SCH ×3 (08:35→17:23)
[2017-02-14] MEDS: CLOPIDOGREL 75 MG TAB PO SCH (08:35)
[2017-02-14] MEDS: ASPIRIN EC 81 MG TABEC PO SCH (08:35)
[2017-02-14] MEDS: FAMOTIDINE 20 MG TAB PO SCH ×2 (08:35→21:25)
[2017-02-14] MEDS: POTASSIUM CHLORIDE 20 MEQ CONTROLLED RELEASE TAB PO SCH ×2 (08:35→21:25)
[2017-02-14] MEDS: METOPROLOL TARTRATE 25 MG TAB PO SCH ×2 (08:36→21:25)
[2017-02-14] MEDS: BUMETANIDE INJ 1 MG/4 ML VIAL IV PUSH SCH (08:36)
[2017-02-14] MEDS: BUDESONIDE-FORMOTEROL 80/4.5 MCG INHALER INH SCH ×2 (08:36→21:26)
[2017-02-14] MEDS ORDERED: diphenhydrAMINE HCL 25 MG CAP PO PRN (09:15)
[2017-02-14 10:59] LABS: BICARBONATE 37.6 MEQ/L (21.0-32.0); POTASSIUM 4.1 MEQ/L (3.5-5.1)
--- NOTE | 2017-02-14 11:31 | HHI.PR ---
Subjective Remarks Pt comfortably ambulating in the hallways off oxygen. Objective Vitals Vital Signs Date Time Temp Pulse Resp B/P Pulse Ox O2 Delivery O2 Flow Rate FiO2 02/14/17 08:31 65 02/14/17 08:01 97.7 82 16 118/82 96 02/14/17 07:40 Nasal Cannula 2.00 02/14/17 07:36 97 Nasal Cannula 2.00 02/14/17 04:00 96.8 60 19 124/69 97 02/14/17 00:00 97.4 80 20 119/65 96 02/13/17 20:01 97.2 60 19 121/68 96 02/13/17 20:00 59 02/13/17 19:30 Nasal Cannula 2.00 02/13/17 17:12 95 Nasal Cannula 2.00 02/13/17 16:01 97.8 84 16 118/61 94 02/13/17 12:01 97.8 60 16 97/63 95 02/13/17 02/13/17 02/14/17 15:00 23:00 07:00 Intake Total 480 ml 280 ml 360 ml Output Total 1525 ml 700 ml 1900 ml Balance -1045 ml -420 ml -1540 ml Intake Oral 480 ml 280 ml 360 ml Output Urine Total 1525 ml 700 ml 1900 ml # Bowel Movements 1 0 0 Result Diagram: 02/14/17 0950 Imaging Last Impressions Chest X-Ray 02/05/17 1111 Signed Impressions: Service Date/Time: Sunday, February 05, 2017 11:23 - CONCLUSION: 1. Scattered atelectactic changes bilaterally. 2. Chronic elevation of the right hemidiaphragm. Rashawn Milligan MD Objective Remarks General: NAD, AAOx3 Chest: CTA Cardiac: Regular Abd: +BS, soft ND/NT Ext: no c/c/e A/P Problem List: (1) COPD (chronic obstructive pulmonary disease) Status: Chronic Plan: - Pt admitted with worsening SOB, cough, and weight gain which has been progressing over the last 2 weeks or so. He has hx of diastolic CHF and COPD - Pt had recently gone on a cruise and was not eating as well as he should have and started noting worsening of his generalized swelling and SOB which he thinks began before he went on the cruise. - Symptoms are likely multifactorial, with diastolic CHF exacerbation and COPD with hypercapnic resp failure and delirium. Pt has been clinically improving. - He is typically on 2L of supplemental O2 at home. - Pt reports a weight gain of around 20lbs over the last 2 weeks. His baseline weight is 225lbs. - Pt has been able to be weaned off BiPAP and is currently on 2L NC - Pt's weight is down to 107.5kg (236.5pounds) 106.8 (235 pounds) - Bumex decreased to 2mg IV BID (from TID) d/t increasing Cr - Cr 1.75 (02/11/17) and 1.75 (02/12/17), 1.75 (02/13/17) - Cont. to monitor weight and cr daily - Steroid is being weaned quickly - Encourage OOB/ambulate - 02/14/17 - change bumex to PO - if pt remains stable, then anticipate d/c to home 02/15 (2) History of CHF (congestive heart failure) Status: Acute Plan: - See above. (3) Hypertension Status: Chronic Plan: - Home meds continued. - Monitor BP (4) Hyperlipemia Status: Chronic Plan: - Home meds continued (5) CAD (coronary artery disease) Status: Chronic Plan: - Home meds continued. Sunny Jenkins DO February 14, 2017 11:31
[2017-02-14] MEDS: BUMETANIDE 1 MG TAB PO SCH (17:23)
[2017-02-14] MEDS: RESP: ALBUTEROL 2.5 MG/IPRATROPIUM 0.5 MG NEB (PRN) NEB ×2 (18:11→20:02)
[2017-02-14] MEDS: PRAVASTATIN SOD 80 MG TAB PO SCH (21:25)
[2017-02-14] MEDS: SODIUM CHLORIDE 0.9% FLUSH 10 ML FLUSH IVF PRN (21:28)
[2017-02-15] VITALS (8 sets, daily range): BP systolic 111–133; BP diastolic 56–101; PULSE 66–98; RESP 18–20; TEMP 97.2–99.1; O2SAT 93–98
[2017-02-15] MEDS: TOBRAMYCIN 0.3%/DEXAMETHASONE 0.1% OPHT SUSP 5 ML BTL RIGHT EYE SCH ×4 (00:02→18:03)
[2017-02-15] MEDS: ALPRAZolam 0.25 MG TAB PO PRN ×2 (00:03→21:18)
[2017-02-15] MEDS: traMADol HCL 50 MG TAB PO PRN (05:20)
[2017-02-15] MEDS: RESP: ALBUTEROL 2.5 MG/IPRATROPIUM 0.5 MG NEB (PRN) NEB ×5 (05:30→21:31)
[2017-02-15 07:07] LABS: AUTOMATED NEUTROPHIL # 21.6 TH/MM3 (1.8-7.7); BASOPHIL # 0.1 TH/MM3 (0-0.2); BASOPHIL % 0.3 % (0.0-2.0); EOSINOPHIL # 0.1 TH/MM3 (0-0.4); EOSINOPHIL % 0.4 % (0.0-4.0); HEMATOCRIT 41.1 % (39.0-51.0); HEMO FLAGS DIFF FINAL; LYMPH % 3.7 % (9.0-44.0); LYMPHOCYTE # 0.9 TH/MM3 (1.0-4.8); MEAN CELL VOLUME 85.3 FL (80.0-100.0); MEAN CORPUSCULAR HEMOGLOBIN 26.7 PG (27.0-34.0); MEAN CORPUSCULAR HGB CONC 31.3 % (32.0-36.0); MONO % 8.4 % (0.0-8.0); NEUT % 87.2 % (16.0-70.0); PLATELET COUNT 183 TH/MM3 (150-450); RED BLOOD COUNT 4.82 MIL/MM3 (4.50-5.90); RED CELL DISTRIBUTION WIDTH 17.2 % (11.6-17.2); WHITE BLOOD COUNT 24.8 TH/MM3 (4.0-11.0)
[2017-02-15 07:32] LABS: BICARBONATE 39.9 MEQ/L (21.0-32.0); MAGNESIUM 2.5 MG/DL (1.5-2.5); POTASSIUM 4.7 MEQ/L (3.5-5.1)
[2017-02-15] MEDS: ISOSORBIDE MONONITRATE 30 MG TAB PO SCH (08:05)
[2017-02-15] MEDS: FAMOTIDINE 20 MG TAB PO SCH ×2 (08:05→21:17)
[2017-02-15] MEDS: CLOPIDOGREL 75 MG TAB PO SCH (08:05)
[2017-02-15] MEDS: TAMSULOSIN HCL 0.4 MG CAP PO SCH (08:05)
[2017-02-15] MEDS: predniSONE 10 MG TAB PO SCH (08:05)
[2017-02-15] MEDS: BUMETANIDE 1 MG TAB PO SCH (08:05)
[2017-02-15] MEDS: ALLOPURINOL 100 MG TAB PO SCH ×2 (08:05→21:17)
[2017-02-15] MEDS: PREGABALIN 25 MG CAP PO SCH ×3 (08:05→18:01)
[2017-02-15] MEDS: ASPIRIN EC 81 MG TABEC PO SCH (08:05)
[2017-02-15] MEDS: METOPROLOL TARTRATE 25 MG TAB PO SCH ×2 (08:05→21:17)
[2017-02-15] MEDS: POTASSIUM CHLORIDE 20 MEQ CONTROLLED RELEASE TAB PO SCH ×2 (08:05→21:17)
[2017-02-15] MEDS: AMIODARONE 200 MG TAB PO SCH (08:06)
[2017-02-15] MEDS: BUDESONIDE-FORMOTEROL 80/4.5 MCG INHALER INH SCH ×2 (08:06→21:18)
--- NOTE | 2017-02-15 14:41 | HHI.PR ---
Subjective Remarks Pt c/o increased fatigue. Pt c/o increased SOB. Objective Vitals Vital Signs Date Time Temp Pulse Resp B/P Pulse Ox O2 Delivery O2 Flow Rate FiO2 02/15/17 12:00 98.6 66 20 111/63 94 02/15/17 09:17 Nasal Cannula 4.00 35 02/15/17 08:00 99.0 69 20 133/101 93 02/15/17 07:43 93 Nasal Cannula 4.00 02/15/17 04:00 99.1 98 18 130/64 94 02/15/17 00:00 98.1 70 18 131/81 94 02/14/17 20:05 98 Nasal Cannula 4.00 02/14/17 20:04 63 02/14/17 20:00 97.4 85 20 130/82 94 02/14/17 19:45 Nasal Cannula 2.00 02/14/17 16:01 98.0 65 17 115/68 94 02/14/17 02/14/17 02/15/17 15:00 23:00 07:00 Intake Total 420 ml 480 ml 480 ml Output Total 1200 ml 1000 ml Balance 420 ml -720 ml -520 ml Intake Oral 420 ml 480 ml 480 ml Output Urine Total 1200 ml 1000 ml # Voids 3 # Bowel Movements 0 1 0 Result Diagram: 02/15/17 0600 02/15/17 0600 Imaging Last Impressions Chest X-Ray 02/05/17 1111 Signed Impressions: Service Date/Time: Sunday, February 05, 2017 11:23 - CONCLUSION: 1. Scattered atelectactic changes bilaterally. 2. Chronic elevation of the right hemidiaphragm. Rashawn Milligan MD Objective Remarks General: NAD, AAOx3 Chest: CTA Cardiac: Regular Abd: +BS, soft ND/NT Ext: no c/c/e A/P Problem List: (1) COPD (chronic obstructive pulmonary disease) Status: Chronic Plan: - Pt admitted with worsening SOB, cough, and weight gain which has been progressing over the last 2 weeks or so. He has hx of diastolic CHF and COPD - Pt had recently gone on a cruise and was not eating as well as he should have and started noting worsening of his generalized swelling and SOB which he thinks began before he went on the cruise. - Symptoms are likely multifactorial, with diastolic CHF exacerbation and COPD with hypercapnic resp failure and delirium. Pt has been clinically improving. - He is typically on 2L of supplemental O2 at home. - Pt reports a weight gain of around 20lbs over the last 2 weeks. His baseline weight is 225lbs. - Pt has been able to be weaned off BiPAP - Pt's weight is down to 107.5kg (236.5pounds) 106.8 (235 pounds), 110 kg () - Cr 1.75 (02/11/17) and 1.75 (02/12/17), 1.75 (02/13/17), 1.97 (02/15/17) - - Pt's bumex had been decreased from 2mg IV TID to 2mg IV BID ant then 2mg PO BID - pt now with increased weight and increased oxygen requirements. - I will change his bumex back to 2mg IV BID - repeat BMP, CXR in AM - Cont. to monitor weight, creatinine, and oxygen requirements daily (2) History of CHF (congestive heart failure) Status: Acute Plan: - See above. (3) Hypertension Status: Chronic Plan: - Home meds continued. - Monitor BP (4) Hyperlipemia Status: Chronic Plan: - Home meds continued (5) CAD (coronary artery disease) Status: Chronic Plan: - Home meds continued. Sunny Jenkins DO February 15, 2017 14:41
[2017-02-15] MEDS: BUMETANIDE INJ 1 MG/4 ML VIAL IV PUSH SCH ×2 (15:29→18:01)
[2017-02-15] MEDS: PRAVASTATIN SOD 80 MG TAB PO SCH (21:17)
[2017-02-16] VITALS (8 sets, daily range): BP systolic 97–121; BP diastolic 55–64; PULSE 59–78; RESP 18–22; TEMP 97.9–98.8; O2SAT 93–95
[2017-02-16] MEDS: TOBRAMYCIN 0.3%/DEXAMETHASONE 0.1% OPHT SUSP 5 ML BTL RIGHT EYE SCH ×5 (00:10→23:48)
[2017-02-16] MEDS: RESP: ALBUTEROL 2.5 MG/IPRATROPIUM 0.5 MG NEB (PRN) NEB ×3 (07:44→20:58)
[2017-02-16] MEDS: BUMETANIDE INJ 1 MG/4 ML VIAL IV PUSH SCH ×2 (08:02→17:00)
[2017-02-16] MEDS: TAMSULOSIN HCL 0.4 MG CAP PO SCH (08:02)
[2017-02-16] MEDS: PREGABALIN 25 MG CAP PO SCH ×3 (08:03→17:00)
[2017-02-16] MEDS: FAMOTIDINE 20 MG TAB PO SCH ×2 (08:03→20:15)
[2017-02-16] MEDS: ASPIRIN EC 81 MG TABEC PO SCH (08:03)
[2017-02-16] MEDS: BUDESONIDE-FORMOTEROL 80/4.5 MCG INHALER INH SCH ×2 (08:03→20:16)
[2017-02-16] MEDS: ALLOPURINOL 100 MG TAB PO SCH ×2 (08:03→20:15)
[2017-02-16] MEDS: METOPROLOL TARTRATE 25 MG TAB PO SCH ×2 (08:03→20:46)
[2017-02-16] MEDS: AMIODARONE 200 MG TAB PO SCH (08:03)
[2017-02-16] MEDS: CLOPIDOGREL 75 MG TAB PO SCH (08:03)
[2017-02-16] MEDS: POTASSIUM CHLORIDE 20 MEQ CONTROLLED RELEASE TAB PO SCH ×2 (08:03→20:15)
[2017-02-16] MEDS: ISOSORBIDE MONONITRATE 30 MG TAB PO SCH (08:03)
--- NOTE | 2017-02-16 08:25 | RADRPT ---
EXAM DATE/TIME: 02/16/2017 08:14 [facility] COMPARISON: CHEST PA & LAT, October 23, 2014, 9:01. INDICATIONS : Short of breath. MEDICAL HISTORY : Myocardial infarction. SURGICAL HISTORY : CABG. Pacemaker. ENCOUNTER: Initial ACUITY: 2 weeks PAIN SCORE: 2/10 LOCATION: Bilateral chest FINDINGS: PA and lateral views of the chest demonstrate bibasilar densities with chronic elevation right hemidi aphragm. Heart and the upper limits of normal in size. Previous median sternotomy. Left-sided pacemak er/defibrillator with intact leads. Osseous structures are intact. CONCLUSION: Chronic elevation right hemidiaphragm with bibasilar densities likely atelectasis. Víctor Samson MD on February 16, 2017 at 8:22 Board Certified Radiologist. This report was verified electronically.
[2017-02-16] MEDS: traMADol HCL 50 MG TAB PO PRN (15:19)
[2017-02-16] MEDS: ALPRAZolam 0.25 MG TAB PO PRN (15:19)
--- NOTE | 2017-02-16 16:43 | HHI.PR ---
Subjective Remarks No new complaints. Objective Vitals Vital Signs Date Time Temp Pulse Resp B/P Pulse Ox O2 Delivery O2 Flow Rate FiO2 02/16/17 12:00 98.0 78 20 107/55 94 02/16/17 10:57 Nasal Cannula 4.00 35 02/16/17 08:00 98.2 74 20 120/58 95 02/16/17 07:47 94 Nasal Cannula 3.00 02/16/17 04:38 98.8 59 20 112/60 95 02/16/17 00:21 97.9 63 22 97/57 95 02/16/17 00:00 Nasal Cannula 3.00 Humidified 02/15/17 21:33 93 Nasal Cannula 3.00 02/15/17 21:25 Nasal Cannula 3.00 Humidified 02/15/17 20:00 97.2 93 20 116/56 98 02/15/17 20:00 Nasal Cannula 2.00 Humidified 02/15/17 20:00 81 02/15/17 02/15/17 02/16/17 15:00 23:00 07:00 Intake Total 720 ml 650 ml 520 ml Output Total 475 ml 500 ml Balance 245 ml 150 ml 520 ml Intake Oral 720 ml 650 ml 520 ml Output Urine Total 475 ml 500 ml # Voids 6 # Bowel Movements 1 0 1 Result Diagram: 02/15/17 0600 02/15/17 0600 Imaging Last Impressions Chest X-Ray 02/05/17 1111 Signed Impressions: Service Date/Time: Sunday, February 05, 2017 11:23 - CONCLUSION: 1. Scattered atelectactic changes bilaterally. 2. Chronic elevation of the right hemidiaphragm. Rashawn Milligan MD Objective Remarks General: NAD, AAOx3 Chest: CTA Cardiac: Regular Abd: +BS, soft ND/NT Ext: no c/c/e A/P Problem List: (1) COPD (chronic obstructive pulmonary disease) Status: Chronic Plan: - Pt admitted with worsening SOB, cough, and weight gain which has been progressing over the last 2 weeks or so. He has hx of diastolic CHF and COPD - Pt had recently gone on a cruise and was not eating as well as he should have and started noting worsening of his generalized swelling and SOB which he thinks began before he went on the cruise. - Symptoms are likely multifactorial, with diastolic CHF exacerbation and COPD with hypercapnic resp failure and delirium. Pt has been clinically improving. - He is typically on 2L of supplemental O2 at home. - Pt reports a weight gain of around 20lbs over the last 2 weeks. His baseline weight is 225lbs. - Pt has been able to be weaned off BiPAP - Pt's weight is down to 107.5kg (236.5pounds) 106.8 (235 pounds), 110 kg () - Cr 1.75 (02/11/17) and 1.75 (02/12/17), 1.75 (02/13/17), 1.97 (02/15/17) - - Pt's bumex had been decreased from 2mg IV TID to 2mg IV BID ant then 2mg PO BID - pt now with increased weight and increased oxygen requirements. - I will change his bumex back to 2mg IV BID - repeat BMP, CXR in AM - Cont. to monitor weight, creatinine, and oxygen requirements daily 02/16/17 - continue current treatment plan as outlined above - will review case with [facility] Sunday 02/18 (2) History of CHF (congestive heart failure) Status: Acute Plan: - See above. (3) Hypertension Status: Chronic Plan: - Home meds continued. - Monitor BP (4) Hyperlipemia Status: Chronic Plan: - Home meds continued (5) CAD (coronary artery disease) Status: Chronic Plan: - Home meds continued. Sunny Jenkins DO February 16, 2017 16:43
[2017-02-16] MEDS: PRAVASTATIN SOD 80 MG TAB PO SCH (20:15)
[2017-02-17] VITALS (12 sets, daily range): BP systolic 115–120; BP diastolic 60–72; PULSE 57–85; RESP 18–22; TEMP 97.3–98.2; O2SAT 93–99
[2017-02-17] MEDS: traMADol HCL 50 MG TAB PO PRN ×2 (01:15→20:25)
[2017-02-17] MEDS: TOBRAMYCIN 0.3%/DEXAMETHASONE 0.1% OPHT SUSP 5 ML BTL RIGHT EYE SCH ×4 (05:29→23:57)
[2017-02-17] MEDS: RESP: ALBUTEROL 2.5 MG/IPRATROPIUM 0.5 MG NEB (PRN) NEB ×4 (06:26→19:24)
[2017-02-17 07:11] LABS: AUTOMATED NEUTROPHIL # 10.1 TH/MM3 (1.8-7.7); BASOPHIL % 0.4 % (0.0-2.0); EOSINOPHIL # 0.5 TH/MM3 (0-0.4); EOSINOPHIL % 3.9 % (0.0-4.0); HEMATOCRIT 37.6 % (39.0-51.0); HEMO FLAGS DIFF FINAL; LYMPH % 7.5 % (9.0-44.0); LYMPHOCYTE # 0.9 TH/MM3 (1.0-4.8); MEAN CELL VOLUME 85.3 FL (80.0-100.0); MEAN CORPUSCULAR HEMOGLOBIN 26.7 PG (27.0-34.0); MEAN CORPUSCULAR HGB CONC 31.3 % (32.0-36.0); MONO % 7.9 % (0.0-8.0); NEUT % 80.3 % (16.0-70.0); PLATELET COUNT 137 TH/MM3 (150-450); RED CELL DISTRIBUTION WIDTH 17.4 % (11.6-17.2); WHITE BLOOD COUNT 12.6 TH/MM3 (4.0-11.0)
[2017-02-17 07:32] LABS: BICARBONATE 41.1 MEQ/L (21.0-32.0); MAGNESIUM 2.9 MG/DL (1.5-2.5)
[2017-02-17] MEDS: POTASSIUM CHLORIDE 20 MEQ CONTROLLED RELEASE TAB PO SCH ×2 (09:27→20:24)
[2017-02-17] MEDS: ISOSORBIDE MONONITRATE 30 MG TAB PO SCH (09:27)
[2017-02-17] MEDS: PREGABALIN 25 MG CAP PO SCH ×3 (09:27→18:53)
[2017-02-17] MEDS: CLOPIDOGREL 75 MG TAB PO SCH (09:27)
[2017-02-17] MEDS: FAMOTIDINE 20 MG TAB PO SCH ×2 (09:28→20:24)
[2017-02-17] MEDS: METOPROLOL TARTRATE 25 MG TAB PO SCH ×2 (09:28→20:25)
[2017-02-17] MEDS: ALLOPURINOL 100 MG TAB PO SCH ×2 (09:28→20:25)
[2017-02-17] MEDS: TAMSULOSIN HCL 0.4 MG CAP PO SCH (09:28)
[2017-02-17] MEDS: AMIODARONE 200 MG TAB PO SCH (09:28)
[2017-02-17] MEDS: ASPIRIN EC 81 MG TABEC PO SCH (09:28)
[2017-02-17] MEDS: BUMETANIDE INJ 1 MG/4 ML VIAL IV PUSH SCH ×2 (09:29→18:53)
[2017-02-17] MEDS: BUDESONIDE-FORMOTEROL 80/4.5 MCG INHALER INH SCH ×2 (09:31→20:27)
[2017-02-17] MEDS: ALPRAZolam 0.25 MG TAB PO PRN (12:39)
--- NOTE | 2017-02-17 15:38 | HHI.PR ---
Subjective Remarks No new complaints. Objective Vitals Vital Signs Date Time Temp Pulse Resp B/P Pulse Ox O2 Delivery O2 Flow Rate FiO2 02/17/17 12:00 Nasal Cannula 2.00 35 02/17/17 12:00 98.2 64 20 118/63 95 02/17/17 08:10 Nasal Cannula 2.00 02/17/17 08:07 60 02/17/17 08:00 97.3 57 20 115/72 96 02/17/17 06:29 96 Nasal Cannula 3.00 02/17/17 04:00 Nasal Cannula 3.00 Humidified 02/17/17 04:00 97.9 60 18 116/66 93 02/17/17 00:00 98.1 63 18 120/69 95 02/17/17 00:00 Nasal Cannula 3.00 Humidified 02/16/17 21:00 94 Nasal Cannula 3.00 02/16/17 20:20 Nasal Cannula 3.00 Humidified 02/16/17 20:00 70 02/16/17 20:00 98.3 67 18 121/64 93 02/16/17 16:00 98.8 70 20 104/58 93 02/16/17 02/16/17 02/17/17 15:00 23:00 07:00 Intake Total 1300 ml Output Total 1600 ml 1650 ml 400 ml Balance -300 ml -1650 ml -400 ml Intake Oral 1300 ml Output Urine Total 1600 ml 1650 ml 400 ml # Bowel Movements 1 2 Result Diagram: 02/17/17 0549 02/17/17 0549 Imaging Last Impressions Chest X-Ray 02/05/17 1111 Signed Impressions: Service Date/Time: Sunday, February 05, 2017 11:23 - CONCLUSION: 1. Scattered atelectactic changes bilaterally. 2. Chronic elevation of the right hemidiaphragm. Rashawn Milligan MD Objective Remarks General: NAD, AAOx3 Chest: CTA Cardiac: Regular Abd: +BS, soft ND/NT Ext: no c/c/e A/P Problem List: (1) COPD (chronic obstructive pulmonary disease) Status: Chronic Plan: - Pt admitted with worsening SOB, cough, and weight gain which has been progressing over the last 2 weeks or so. He has hx of diastolic CHF and COPD - Pt had recently gone on a cruise and was not eating as well as he should have and started noting worsening of his generalized swelling and SOB which he thinks began before he went on the cruise. - Symptoms are likely multifactorial, with diastolic CHF exacerbation and COPD with hypercapnic resp failure and delirium. Pt has been clinically improving. - He is typically on 2L of supplemental O2 at home. - Pt reports a weight gain of around 20lbs over the last 2 weeks. His baseline weight is 225lbs. - Pt has been able to be weaned off BiPAP - Pt's weight is down to 107.5kg (236.5pounds) 106.8 (235 pounds), 110 kg () - Cr 1.75 (02/11/17) and 1.75 (02/12/17), 1.75 (02/13/17), 1.97 (02/15/17) - - Pt's bumex had been decreased from 2mg IV TID to 2mg IV BID ant then 2mg PO BID - pt now with increased weight and increased oxygen requirements. - changed his bumex back to 2mg IV BID - Cont. to monitor weight, creatinine, and oxygen requirements daily 02/16/17 - oxygen requirements back down to 2L by [place] - will review case with [facility] Sunday 02/18 (2) History of CHF (congestive heart failure) Status: Acute Plan: - See above. (3) Hypertension Status: Chronic Plan: - Home meds continued. - Monitor BP (4) Hyperlipemia Status: Chronic Plan: - Home meds continued (5) CAD (coronary artery disease) Status: Chronic Plan: - Home meds continued. Sunny Jenkins DO February 17, 2017 15:38
--- NOTE | 2017-02-17 15:42 | HHI.PR ---
Subjective Remarks Nursing reports that pt had an episode of anxiety with tachycardia. Episode resolved with xanax & tachycardia resolved. Objective Vitals Vital Signs Date Time Temp Pulse Resp B/P Pulse Ox O2 Delivery O2 Flow Rate FiO2 02/17/17 12:00 Nasal Cannula 2.00 35 02/17/17 12:00 98.2 64 20 118/63 95 02/17/17 08:10 Nasal Cannula 2.00 02/17/17 08:07 60 02/17/17 08:00 97.3 57 20 115/72 96 02/17/17 06:29 96 Nasal Cannula 3.00 02/17/17 04:00 Nasal Cannula 3.00 Humidified 02/17/17 04:00 97.9 60 18 116/66 93 02/17/17 00:00 98.1 63 18 120/69 95 02/17/17 00:00 Nasal Cannula 3.00 Humidified 02/16/17 21:00 94 Nasal Cannula 3.00 02/16/17 20:20 Nasal Cannula 3.00 Humidified 02/16/17 20:00 70 02/16/17 20:00 98.3 67 18 121/64 93 02/16/17 16:00 98.8 70 20 104/58 93 02/16/17 02/16/17 02/17/17 15:00 23:00 07:00 Intake Total 1300 ml Output Total 1600 ml 1650 ml 400 ml Balance -300 ml -1650 ml -400 ml Intake Oral 1300 ml Output Urine Total 1600 ml 1650 ml 400 ml # Bowel Movements 1 2 Result Diagram: 02/17/17 0549 02/17/17 0549 Imaging Last Impressions Chest X-Ray 02/05/17 1111 Signed Impressions: Service Date/Time: Sunday, February 05, 2017 11:23 - CONCLUSION: 1. Scattered atelectactic changes bilaterally. 2. Chronic elevation of the right hemidiaphragm. Rashawn Milligan MD Objective Remarks General: NAD, AAOx3 Chest: CTA Cardiac: Regular Abd: +BS, soft ND/NT Ext: no c/c/e A/P Problem List: (1) COPD (chronic obstructive pulmonary disease) Status: Chronic Plan: - Pt admitted with worsening SOB, cough, and weight gain which has been progressing over the last 2 weeks or so. He has hx of diastolic CHF and COPD - Pt had recently gone on a cruise and was not eating as well as he should have and started noting worsening of his generalized swelling and SOB which he thinks began before he went on the cruise. - Symptoms are likely multifactorial, with diastolic CHF exacerbation and COPD with hypercapnic resp failure and delirium. Pt has been clinically improving. - He is typically on 2L of supplemental O2 at home. - Pt reports a weight gain of around 20lbs over the last 2 weeks. His baseline weight is 225lbs. - Pt has been able to be weaned off BiPAP - Pt's weight is down to 107.5kg (236.5pounds) 106.8 (235 pounds), 110 kg () - Cr 1.75 (02/11/17) and 1.75 (02/12/17), 1.75 (02/13/17), 1.97 (02/15/17) - - Pt's bumex had been decreased from 2mg IV TID to 2mg IV BID ant then 2mg PO BID - pt now with increased weight and increased oxygen requirements. - changed his bumex back to 2mg IV BID - Cont. to monitor weight, creatinine, and oxygen requirements daily 02/16/17 - oxygen requirements back down to 2L by [facility] - will review case with [facility] Sunday 02/18 (2) History of CHF (congestive heart failure) Status: Acute Plan: - See above. (3) Hypertension Status: Chronic Plan: - Home meds continued. - Monitor BP (4) Hyperlipemia Status: Chronic Plan: - Home meds continued (5) CAD (coronary artery disease) Status: Chronic Plan: - Home meds continued. Sunny Jenkins DO February 17, 2017 15:41
[2017-02-17] MEDS: PRAVASTATIN SOD 80 MG TAB PO SCH (20:24)
[2017-02-17] MEDS: SODIUM CHLORIDE 0.9% FLUSH 10 ML FLUSH IVF PRN (20:25)
[2017-02-18] VITALS (9 sets, daily range): BP systolic 106–141; BP diastolic 57–76; PULSE 59–86; RESP 18–22; TEMP 97.4–98.4; O2SAT 90–98
[2017-02-18] MEDS: traMADol HCL 50 MG TAB PO PRN ×3 (01:07→23:03)
[2017-02-18] MEDS: TOBRAMYCIN 0.3%/DEXAMETHASONE 0.1% OPHT SUSP 5 ML BTL RIGHT EYE SCH ×4 (06:12→23:04)
[2017-02-18 06:17] LABS: AUTOMATED NEUTROPHIL # 9.5 TH/MM3 (1.8-7.7); BASOPHIL % 0.4 % (0.0-2.0); EOSINOPHIL # 0.5 TH/MM3 (0-0.4); EOSINOPHIL % 4.4 % (0.0-4.0); HEMATOCRIT 36.2 % (39.0-51.0); HEMO FLAGS DIFF FINAL; LYMPHOCYTE # 0.9 TH/MM3 (1.0-4.8); MEAN CELL VOLUME 85.1 FL (80.0-100.0); MEAN CORPUSCULAR HEMOGLOBIN 26.3 PG (27.0-34.0); MEAN CORPUSCULAR HGB CONC 30.9 % (32.0-36.0); NEUT % 80.2 % (16.0-70.0); PLATELET COUNT 134 TH/MM3 (150-450); RED BLOOD COUNT 4.26 MIL/MM3 (4.50-5.90); RED CELL DISTRIBUTION WIDTH 17.4 % (11.6-17.2); WHITE BLOOD COUNT 11.8 TH/MM3 (4.0-11.0)
[2017-02-18 06:39] LABS: BICARBONATE 38.7 MEQ/L (21.0-32.0); MAGNESIUM 2.8 MG/DL (1.5-2.5); POTASSIUM 4.6 MEQ/L (3.5-5.1)
[2017-02-18] MEDS: CLOPIDOGREL 75 MG TAB PO SCH (08:55)
[2017-02-18] MEDS: AMIODARONE 200 MG TAB PO SCH (08:55)
[2017-02-18] MEDS: BUDESONIDE-FORMOTEROL 80/4.5 MCG INHALER INH SCH ×2 (08:55→23:04)
[2017-02-18] MEDS: METOPROLOL TARTRATE 25 MG TAB PO SCH ×2 (08:55→23:03)
[2017-02-18] MEDS: ISOSORBIDE MONONITRATE 30 MG TAB PO SCH (08:56)
[2017-02-18] MEDS: PREGABALIN 25 MG CAP PO SCH ×3 (08:56→17:15)
[2017-02-18] MEDS: ASPIRIN EC 81 MG TABEC PO SCH (08:56)
[2017-02-18] MEDS: ALLOPURINOL 100 MG TAB PO SCH ×2 (08:56→23:03)
[2017-02-18] MEDS: FAMOTIDINE 20 MG TAB PO SCH ×2 (08:56→23:02)
[2017-02-18] MEDS: POTASSIUM CHLORIDE 20 MEQ CONTROLLED RELEASE TAB PO SCH ×2 (08:56→23:02)
[2017-02-18] MEDS: BUMETANIDE INJ 1 MG/4 ML VIAL IV PUSH SCH ×2 (08:57→17:15)
[2017-02-18] MEDS: TAMSULOSIN HCL 0.4 MG CAP PO SCH (10:23)
--- NOTE | 2017-02-18 12:50 | HHI.PR ---
Subjective Remarks doing ok. Objective Vitals heart reg lung cta abd s/nt ext no edema Vital Signs Date Time Temp Pulse Resp B/P Pulse Ox O2 Delivery O2 Flow Rate FiO2 02/18/17 12:00 98.4 59 20 106/68 98 02/18/17 09:02 63 02/18/17 09:02 Nasal Cannula 3.00 02/18/17 08:00 97.4 80 20 141/76 94 02/18/17 07:20 95 Nasal Cannula 3.00 02/18/17 04:00 Nasal Cannula 3.00 Humidified 02/18/17 04:00 97.7 86 22 128/73 95 02/18/17 00:00 97.6 66 22 111/57 96 02/18/17 00:00 Nasal Cannula 3.00 Humidified 02/17/17 20:20 Nasal Cannula 3.00 Humidified 02/17/17 20:00 85 02/17/17 20:00 98.0 62 22 118/65 94 02/17/17 16:53 95 Nasal Cannula 3.00 02/17/17 16:00 97.3 66 20 115/60 95 02/17/17 13:23 99 02/17/17 02/17/17 02/18/17 14:59 22:59 06:59 Intake Total 242 ml 380 ml 220 ml Output Total 2200 ml 750 ml 1600 ml Balance -1958 ml -370 ml -1380 ml Intake Oral 240 ml 380 ml 220 ml IV Total 2 ml Output Urine Total 2200 ml 750 ml 1600 ml # Voids 2 # Bowel Movements 1 0 Result Diagram: 02/18/17 0500 02/18/17 0500 Imaging Last Impressions Chest X-Ray 02/05/17 1111 Signed Impressions: Service Date/Time: Sunday, February 05, 2017 11:23 - CONCLUSION: 1. Scattered atelectactic changes bilaterally. 2. Chronic elevation of the right hemidiaphragm. Rashawn Milligan MD A/P Problem List: (1) CKD (chronic kidney disease) stage 3, GFR 30-59 ml/min Status: Acute Plan: - Pt admitted with worsening SOB, cough, and weight gain which has been progressing over the last 2 weeks or so. He has hx of diastolic CHF and COPD and ckd 3 with mod/severe arteriosclerosis. - Pt had recently gone on a cruise and was not eating as well as he should have and started noting worsening of his generalized swelling and SOB which he thinks began before he went on the cruise. - Symptoms are likely multifactorial, with diastolic CHF exacerbation and COPD with hypercapnic resp failure and delirium. Pt has been clinically improving. - He is typically on 2L of supplemental O2 at home. - Pt reports a weight gain of around 20lbs over the last 2 weeks. His baseline weight is 225lbs. - Pt has been able to be weaned off BiPAP - attempted diuresis over past 2 weeks with weight increasing once iv bumex stopped -I requested his tape recording machine operator dr Shrestha evaluate him given his long hx kidney dz , complicated volume balance, and resistance to diuretics. failed lasix in past. discussed with dr Shrestha,,cont iv bumex and add metolazone. fluid restrict for now. monitor bmp. (2) COPD (chronic obstructive pulmonary disease) Status: Acute Plan: see above (3) History of CHF (congestive heart failure) Status: Acute Plan: - See above. (4) Hypertension Status: Chronic Plan: - Home meds continued. - Monitor BP (5) Hyperlipemia Status: Chronic Plan: - Home meds continued (6) CAD (coronary artery disease) Status: Chronic Plan: - Home meds continued. Mahad Finn MD February 18, 2017 12:50
[2017-02-18] MEDS: ALPRAZolam 0.25 MG TAB PO PRN ×2 (12:51→23:03)
--- NOTE | 2017-02-18 13:39 | MB ---
cc: RICH QUIGLEY MD DATE OF CONSULTATION February 18, 2017 REASON FOR CONSULTATION Chronic kidney disease with acute kidney injury and management of diuretics. HISTORY OF PRESENT ILLNESS This is a 56-year-old male known to me from before with past medical history of hypertension, ischemic heart disease, congestive heart failure, chronic kidney disease, chronic obstructive pulmonary disease, history of acute kidney injury in the past. He was admitted because of shortness of breath, chest pain and increased weight gain. The patient has been in the hospital since he was admitted on February 05 and since then he has been on diuretic disease. He responded well to IV Bumex and his weight goes down but when he is changed to the p.o. then he started gaining weight again and he feels short of breath on exertion. He denies any dysuria, hematuria and occasionally has difficulty in passing urine and on asking him about the fluid restriction, he has not measure how much he is drinking. He denies any nausea or vomiting. There is no chest pain now. There is no abdominal pain, no history of diarrhea. His appetite is normal. PAST MEDICAL HISTORY 1. Ischemic heart disease. 2. Congestive heart failure. 3. Chronic kidney disease with history of acute kidney injury,. 4. Chronic obstructive pulmonary disease. 5. Anxiety, depression. 6. Hypertension. 7. Hyperlipidemia. PAST SURGICAL HISTORY 1. History of ablation surgery for tachycardia. 2. Dual chamber AICD placement. 3. Cardiac catheterization. 4. Appendectomy. 5. Coronary artery bypass grafting. 6. Lipoma resection from the back. 7. Right inguinal hernia. 8. Right knee surgery. 9. Bilateral shoulder surgery. 10. Cholecystectomy. 11. Tonsillectomy and adenoidectomy. REVIEW OF SYSTEMS There is no history of fever. The patient has generalized weakness, feeling tired. He has shortness of breath on exertion. There is no chest pain. No palpitations. No nausea or vomiting. No abdominal pain. No history of diarrhea. No dysuria. Sometimes has difficulty passing urine. SOCIAL HISTORY The patient is , lives with his . He has past history of smoking, stopped almost 10 years ago. There is no history of heavy alcoholism. FAMILY HISTORY Positive for cardiac disease from both mother and father's side. ALLERGIES ATIVAN. PERCOCET. SULFA. MEDICATIONS Currently he is on the following medications - 1. Allopurinol 100 mg b.i.d. 2. Metoprolol 25 mg b.i.d. 3. Potassium chloride 20 mEq b.i.d. 4. Symbicort 2 puffs inhalation. 5. Pepcid 10 mg b.i.d. 6. Bumex 2 mg b.i.d. 7. Cordarone 200 mg daily. 8. Aspirin 81 mg once a day. 9. Plavix 75 mg daily. 10. Imdur 30 mg once a day. 11. Flomax 0.8 mg once a day. 12. Pravachol 80 mg q.h.s. 13. Tobramycin eye drop. 14. Lyrica 50 mg t.i.d. 15. Xanax p.r.n. 16. DuoNeb p.r.n. 17. Zofran p.r.n. PHYSICAL EXAMINATION GENERAL: On examination the patient is awake, alert. He is not in acute distress. VITAL SIGNS: His last blood pressure was 141/76, temperature is 97.4, oxygen saturation on 3 liters nasal cannula 94-96%. His weight has been fluctuating from 106.8 to 112.3 during this admission. HEENT: Pupils equally reacting to light. Nonicteric. Conjunctivae normal. NECK: Supple. JVD is slightly elevated. LUNGS: The patient has bilateral decreased air entry with occasional wheezing. HEART: S1, S2. Regular rhythm. ABDOMEN: Distended, soft, lax. There is no tenderness. Bowel sounds positive. EXTREMITIES: There is mild edema in the legs. INVESTIGATION WBC count is 11.8, hemoglobin 11.2, platelet count of 134, neutrophils 80.2, eosinophils 4.4%. Sodium 140, potassium 4.6, chloride 98, bicarb 38.7, BUN 26, creatinine 1.68. Calcium 8.8, phosphorus not done. The magnesium is 2.8. INR on admission was 1.0. There is no recent urinalysis done. Previously he had kidney biopsy done and showed that he has seen glomerulosclerosis with interstitial fibrosis and arteriosclerosis along with ATN. At that time his creatinine was as high as 2.6 at one point it was 4.7. IMAGING STUDIES The patient has a chest x-ray done which shows chronic elevation of right hemidiaphragm with bibasilar densities like atelectasis. ASSESSMENT AND PLAN 1. Chronic kidney disease. 2. Fluid retention and weight gain. 3. Congestive heart failure. 4. Hypertension. 5. Hyperlipidemia. The patient has been on Bumex at home but it seems like he is not responding very good right now with the oral Bumex. I will add metolazone and get bladder scan to make sure that he has complete emptying of his bladder. Also to put him on some fluid restriction. Right now and I will put him on 1.2 liters of resection. Once he responds better to metolazone and IV Bumex, then we can change the Bumex to p.o. and observe the response and then go from there. Thank you for the consultation. I discussed the case with Dr. Finn. I will follow the patient while he is in the hospital. MD NINA Yin/TISHA /11:53 AM /1:23 PM
[2017-02-18] MEDS: PRAVASTATIN SOD 80 MG TAB PO SCH (23:02)
[2017-02-18] MEDS: METOLAZONE 2.5 MG TAB PO SCH (23:02)
[2017-02-19] VITALS (11 sets, daily range): BP systolic 102–129; BP diastolic 57–98; PULSE 61–88; RESP 18–20; TEMP 97.7–98.9; O2SAT 94–99
[2017-02-19] MEDS: traMADol HCL 50 MG TAB PO PRN ×2 (04:27→21:08)
[2017-02-19] MEDS: ALPRAZolam 0.25 MG TAB PO PRN (06:31)
[2017-02-19] MEDS: TOBRAMYCIN 0.3%/DEXAMETHASONE 0.1% OPHT SUSP 5 ML BTL RIGHT EYE SCH ×4 (06:32→23:25)
[2017-02-19 08:12] LABS: BICARBONATE 39.5 MEQ/L (21.0-32.0); MAGNESIUM 2.8 MG/DL (1.5-2.5); POTASSIUM 4.3 MEQ/L (3.5-5.1)
[2017-02-19] MEDS: ALLOPURINOL 100 MG TAB PO SCH ×2 (09:55→21:08)
[2017-02-19] MEDS: CLOPIDOGREL 75 MG TAB PO SCH (09:55)
[2017-02-19] MEDS: TAMSULOSIN HCL 0.4 MG CAP PO SCH (09:55)
[2017-02-19] MEDS: BUMETANIDE INJ 1 MG/4 ML VIAL IV PUSH SCH ×2 (09:55→16:43)
[2017-02-19] MEDS: FAMOTIDINE 20 MG TAB PO SCH ×2 (09:56→21:09)
[2017-02-19] MEDS: BUDESONIDE-FORMOTEROL 80/4.5 MCG INHALER INH SCH ×2 (09:56→21:09)
[2017-02-19] MEDS: PREGABALIN 25 MG CAP PO SCH ×3 (09:56→16:43)
[2017-02-19] MEDS: ASPIRIN EC 81 MG TABEC PO SCH (09:56)
[2017-02-19] MEDS: POTASSIUM CHLORIDE 20 MEQ CONTROLLED RELEASE TAB PO SCH ×2 (09:56→21:08)
[2017-02-19] MEDS: ISOSORBIDE MONONITRATE 30 MG TAB PO SCH (09:56)
[2017-02-19] MEDS: METOLAZONE 2.5 MG TAB PO SCH ×2 (09:56→21:08)
[2017-02-19] MEDS: METOPROLOL TARTRATE 25 MG TAB PO SCH ×2 (09:56→21:09)
[2017-02-19] MEDS: AMIODARONE 200 MG TAB PO SCH (09:56)
--- NOTE | 2017-02-19 11:52 | HHI.PR ---
Subjective Remarks feels the same. Objective Vitals heart reg lung cta abd s/nt ext no edema Vital Signs Date Time Temp Pulse Resp B/P Pulse Ox O2 Delivery O2 Flow Rate FiO2 02/19/17 10:13 68 02/19/17 10:13 Nasal Cannula 3.00 02/19/17 04:00 Nasal Cannula 3.00 Humidified 02/19/17 04:00 97.7 62 20 106/70 94 02/19/17 00:00 97.9 88 20 129/69 95 02/19/17 00:00 Nasal Cannula 3.00 Humidified 02/18/17 21:10 95 Nasal Cannula 3.00 02/18/17 20:00 62 02/18/17 20:00 Nasal Cannula 3.00 Humidified 02/18/17 20:00 97.9 61 18 123/75 97 02/18/17 16:00 98.0 62 20 116/64 90 02/18/17 12:00 98.4 59 20 106/68 98 02/18/17 02/18/17 02/19/17 15:00 23:00 07:00 Intake Total 480 ml 480 ml 240 ml Output Total 1000 ml 2575 ml 925 ml Balance -520 ml -2095 ml -685 ml Intake Oral 480 ml 480 ml 240 ml Output Urine Total 1000 ml 2575 ml 925 ml # Bowel Movements 1 0 0 Result Diagram: 02/18/17 0500 02/19/17 0643 Imaging Last Impressions Chest X-Ray 02/05/17 1111 Signed Impressions: Service Date/Time: Sunday, February 05, 2017 11:23 - CONCLUSION: 1. Scattered atelectactic changes bilaterally. 2. Chronic elevation of the right hemidiaphragm. Rashawn Milligan MD A/P Problem List: (1) CKD (chronic kidney disease) stage 3, GFR 30-59 ml/min Status: Acute Plan: - Pt admitted with worsening SOB, cough, and weight gain which has been progressing over the last 2 weeks or so. He has hx of diastolic CHF and COPD and ckd 3 with mod/severe arteriosclerosis. - Pt had recently gone on a cruise and was not eating as well as he should have and started noting worsening of his generalized swelling and SOB which he thinks began before he went on the cruise. - Symptoms are likely multifactorial, with diastolic CHF exacerbation and COPD with hypercapnic resp failure and delirium. Pt has been clinically improving. - He is typically on 2L of supplemental O2 at home. - Pt reports a weight gain of around 20lbs over the last 2 weeks. His baseline weight is 225lbs. - Pt has been able to be weaned off BiPAP - attempted diuresis over past 2 weeks with weight increasing once iv bumex stopped -I requested his assistant professor of biology dr Shrestha evaluate him given his long hx kidney dz , complicated volume balance, and resistance to diuretics. failed lasix in past. discussed with dr Shrestha,,cont iv bumex and added metolazone. fluid restrict for now. monitor bmp. .....today he continues to shows great diuresis but weight doesn;t change...I will get the bedside scale and weigh him myself. (2) COPD (chronic obstructive pulmonary disease) Status: Acute Plan: see above (3) History of CHF (congestive heart failure) Status: Acute Plan: - See above. (4) Hypertension Status: Chronic Plan: - Home meds continued. - Monitor BP (5) Hyperlipemia Status: Chronic Plan: - Home meds continued (6) CAD (coronary artery disease) Status: Chronic Plan: - Home meds continued. Mahad Finn MD February 19, 2017 11:51
--- NOTE | 2017-02-19 17:42 | HHI.NPPN ---
Subjective General Problems: Anemia, COPD, Edema, Heart Disease, Hypertension Renal Failure: Stage III History of Present Illness 56-year-old male known to me from before with past medical history of hypertension, ischemic heart disease, congestive heart failure, chronic kidney disease, chronic obstructive pulmonary disease, history of acute kidney injury in the past. He was admitted because of shortness of breath, chest pain and increased weight gain. I was called for management of diuretics and chronic kidney disease. Additional Remarks Patient is alert, feeling better, with nasal cannula, sleepy eating better. Review of Systems General Constitutional: Fatigue Respiratory Lungs: SOB, Wheeze Cardiovascular Cardiac: Edema, RIVERA Objective Data Data 02/18/17 02/19/17 19:00 07:00 Intake Total 480 ml 720 ml Output Total 3300 ml 1200 ml Balance -2820 ml -480 ml Intake Oral 480 ml 720 ml Output Urine Total 3300 ml 1200 ml # Bowel Movements 1 0 Vital Signs Date Time Temp Pulse Resp B/P Pulse Ox O2 Delivery O2 Flow Rate FiO2 02/19/17 17:24 96 Nasal Cannula 3.00 02/19/17 16:00 98.0 76 18 119/68 96 02/19/17 12:00 98.9 66 18 116/98 98 02/19/17 10:13 68 02/19/17 10:13 Nasal Cannula 3.00 02/19/17 08:00 97.8 65 18 123/80 99 02/19/17 07:32 95 Nasal Cannula 3.00 02/19/17 04:00 Nasal Cannula 3.00 Humidified 02/19/17 04:00 97.7 62 20 106/70 94 02/19/17 00:00 97.9 88 20 129/69 95 02/19/17 00:00 Nasal Cannula 3.00 Humidified 02/18/17 21:10 95 Nasal Cannula 3.00 02/18/17 20:00 62 02/18/17 20:00 Nasal Cannula 3.00 Humidified 02/18/17 20:00 97.9 61 18 123/75 97 -: 02/18/17 0500 02/19/17 0643 Physical Exam General Appearance: Well Nourished, No Acute Distress, Comfortable Eyes Eye Exam: Pupils Equal Throat Throat Exam: Oral Mucosa [place] & Moist Neck Neck Exam: Neck Supple Pulmonary Resp Exam: Breath Sounds Equal, No Distress, Rhonchi, Decreased Bases Cardiology CV Exam: Regular, Normal Sinus Rhythm Gastrointestinal/Abdomen GI Exam: Soft, Non-Tender, Bowel Sounds Present Extremeties Extremities Exam: Moderate Edema Neurologic Neuro Exam: Alert, Awake, Oriented Psychiatric Psych Exam: Appropriate Responses Assessment/Plan Assessment Summary: TWIN/Acute Renal Failure, Fluid/Volume Overload, CKD Stage III Problem List: (1) Generalized weakness (2) COPD (chronic obstructive pulmonary disease) (3) CKD (chronic kidney disease) stage 3, GFR 30-59 ml/min (4) Hypertension (5) History of CHF (congestive heart failure) (6) TWIN (acute kidney injury) Plan Patient has improvement in the urine out put. Now on Bumex and Metolazone. Creatinine is almost same. Bladder scan not done, need to be done. Talk to the patient and the RN. Weight was same today, need to be rechecked. On fluid restriction. Continue same Bumex and Metolazone. Once stable, will try oral diuretics. Problem Qualifiers (1) Hypertension: Qualified Code: I10 - Essential hypertension Maxwell Shrestha MD February 19, 2017 17:41
[2017-02-19] MEDS: PRAVASTATIN SOD 80 MG TAB PO SCH (21:08)
[2017-02-20] VITALS (9 sets, daily range): BP systolic 102–122; BP diastolic 55–70; PULSE 60–66; RESP 18; TEMP 97–98.7; O2SAT 92–98
[2017-02-20] MEDS: RESP: ALBUTEROL 2.5 MG/IPRATROPIUM 0.5 MG NEB (PRN) NEB (00:15)
[2017-02-20] MEDS: traMADol HCL 50 MG TAB PO PRN ×4 (05:34→20:33)
[2017-02-20] MEDS: TOBRAMYCIN 0.3%/DEXAMETHASONE 0.1% OPHT SUSP 5 ML BTL RIGHT EYE SCH ×3 (05:34→17:50)
[2017-02-20 07:45] LABS: BICARBONATE 40.6 MEQ/L (21.0-32.0); POTASSIUM 4.2 MEQ/L (3.5-5.1)
[2017-02-20] MEDS: ALLOPURINOL 100 MG TAB PO SCH ×2 (09:19→20:33)
[2017-02-20] MEDS: CLOPIDOGREL 75 MG TAB PO SCH (09:19)
[2017-02-20] MEDS: TAMSULOSIN HCL 0.4 MG CAP PO SCH (09:19)
[2017-02-20] MEDS: ASPIRIN EC 81 MG TABEC PO SCH (09:19)
[2017-02-20] MEDS: POTASSIUM CHLORIDE 20 MEQ CONTROLLED RELEASE TAB PO SCH ×2 (09:20→20:33)
[2017-02-20] MEDS: FAMOTIDINE 20 MG TAB PO SCH ×2 (09:20→20:32)
[2017-02-20] MEDS: METOLAZONE 2.5 MG TAB PO SCH ×2 (09:21→20:32)
[2017-02-20] MEDS: ISOSORBIDE MONONITRATE 30 MG TAB PO SCH (09:21)
[2017-02-20] MEDS: AMIODARONE 200 MG TAB PO SCH (09:21)
[2017-02-20] MEDS: METOPROLOL TARTRATE 25 MG TAB PO SCH ×2 (09:22→20:33)
[2017-02-20] MEDS: BUDESONIDE-FORMOTEROL 80/4.5 MCG INHALER INH SCH ×2 (09:23→20:34)
[2017-02-20] MEDS: BUMETANIDE INJ 1 MG/4 ML VIAL IV PUSH SCH ×2 (09:23→17:49)
[2017-02-20] MEDS: PREGABALIN 25 MG CAP PO SCH ×2 (14:19→20:33)
--- NOTE | 2017-02-20 17:16 | HHI.PR ---
Subjective Remarks doing ok. was lethargic and concerned about lyrica to close together Objective Vitals heart reg lung cta abd /snte ext no edema Vital Signs Date Time Temp Pulse Resp B/P Pulse Ox O2 Delivery O2 Flow Rate FiO2 02/20/17 12:00 98.7 63 18 102/70 94 02/20/17 11:19 94 Nasal Cannula 3.00 02/20/17 09:15 Nasal Cannula 2.00 02/20/17 08:00 98.4 63 18 120/60 95 02/20/17 04:23 Nasal Cannula 3.00 Humidified 02/20/17 04:23 98.3 66 18 122/64 93 02/20/17 00:19 92 Nasal Cannula 3.00 02/19/17 23:08 98.2 63 18 119/57 94 02/19/17 23:08 Nasal Cannula 3.00 Humidified 02/19/17 20:12 Nasal Cannula 3.00 Humidified 02/19/17 20:12 98.0 61 18 102/63 97 02/19/17 20:10 75 02/19/17 17:24 96 Nasal Cannula 3.00 02/19/17 02/19/17 02/20/17 15:00 23:00 07:00 Intake Total 120 ml 50 ml 20 ml Output Total 3000 ml 1100 ml 975 ml Balance -2880 ml -1050 ml -955 ml Intake Oral 120 ml 50 ml 20 ml Output Urine Total 3000 ml 1100 ml 975 ml # Bowel Movements 1 1 0 Result Diagram: 02/18/17 0500 02/20/17 0711 Imaging Last Impressions Chest X-Ray 02/05/17 1111 Signed Impressions: Service Date/Time: Sunday, February 05, 2017 11:23 - CONCLUSION: 1. Scattered atelectactic changes bilaterally. 2. Chronic elevation of the right hemidiaphragm. Rashawn Milligan MD A/P Problem List: (1) CKD (chronic kidney disease) stage 3, GFR 30-59 ml/min Status: Acute Plan: - Pt admitted with worsening SOB, cough, and weight gain which has been progressing over the last 2 weeks or so. He has hx of diastolic CHF and COPD and ckd 3 with mod/severe arteriosclerosis. - Pt had recently gone on a cruise and was not eating as well as he should have and started noting worsening of his generalized swelling and SOB which he thinks began before he went on the cruise. - Symptoms are likely multifactorial, with diastolic CHF exacerbation and COPD with hypercapnic resp failure and delirium. Pt has been clinically improving. - He is typically on 2L of supplemental O2 at home. - Pt reports a weight gain of around 20lbs over the last 2 weeks. His baseline weight is 225lbs. - Pt has been able to be weaned off BiPAP - attempted diuresis over past 2 weeks with weight increasing once iv bumex stopped -I requested his glass furnace operator dr Shrestha evaluate him given his long hx kidney dz , complicated volume balance, and resistance to diuretics. failed lasix in past. discussed with dr Shrestha,,cont iv bumex and added metolazone. fluid restrict for now. monitor bmp. .....today he continues to shows great diuresis His weight is finally dropping and down to 233 pounds. (2) COPD (chronic obstructive pulmonary disease) Status: Acute Plan: see above (3) History of CHF (congestive heart failure) Status: Acute Plan: - See above. (4) Hypertension Status: Chronic Plan: - Home meds continued. - Monitor BP (5) Hyperlipemia Status: Chronic Plan: - Home meds continued (6) CAD (coronary artery disease) Status: Chronic Plan: - Home meds continued. Problem Qualifiers (1) Hypertension: Qualified Code: I10 - Essential hypertension Mahad Finn MD February 20, 2017 17:16
--- NOTE | 2017-02-20 17:47 | HHI.NPPN ---
Subjective General Problems: Anemia, COPD, Edema, Heart Disease, Hypertension Renal Failure: Stage III History of Present Illness 56-year-old male known to me from before with past medical history of hypertension, ischemic heart disease, congestive heart failure, chronic kidney disease, chronic obstructive pulmonary disease, history of acute kidney injury in the past. He was admitted because of shortness of breath, chest pain and increased weight gain. I was called for management of diuretics and chronic kidney disease. Additional Remarks Patient is alert, feeling better, with nasal cannula, eating better. Review of Systems General Constitutional: Fatigue Respiratory Lungs: SOB, Wheeze Cardiovascular Cardiac: Edema, RIVERA Objective Data Data 02/19/17 02/20/17 19:00 07:00 Intake Total 120 ml 70 ml Output Total 3000 ml 2075 ml Balance -2880 ml -2005 ml Intake Oral 120 ml 70 ml Output Urine Total 3000 ml 2075 ml # Bowel Movements 1 1 Vital Signs Date Time Temp Pulse Resp B/P Pulse Ox O2 Delivery O2 Flow Rate FiO2 02/20/17 16:00 98.3 62 18 112/55 98 02/20/17 12:00 98.7 63 18 102/70 94 02/20/17 11:19 94 Nasal Cannula 3.00 02/20/17 09:15 Nasal Cannula 2.00 02/20/17 08:00 98.4 63 18 120/60 95 02/20/17 04:23 Nasal Cannula 3.00 Humidified 02/20/17 04:23 98.3 66 18 122/64 93 02/20/17 00:19 92 Nasal Cannula 3.00 02/19/17 23:08 98.2 63 18 119/57 94 02/19/17 23:08 Nasal Cannula 3.00 Humidified 02/19/17 20:12 Nasal Cannula 3.00 Humidified 02/19/17 20:12 98.0 61 18 102/63 97 02/19/17 20:10 75 -: 02/18/17 0500 02/20/17 0711 Physical Exam General Appearance: Well Nourished, No Acute Distress, Comfortable Eyes Eye Exam: Pupils Equal Throat Throat Exam: Oral Mucosa [place] & Moist Neck Neck Exam: Neck Supple Pulmonary Resp Exam: Breath Sounds Equal, No Distress, Rhonchi, Decreased Bases Cardiology CV Exam: Regular, Normal Sinus Rhythm Gastrointestinal/Abdomen GI Exam: Soft, Non-Tender, Bowel Sounds Present Extremeties Extremities Exam: Moderate Edema Neurologic Neuro Exam: Alert, Awake, Oriented Psychiatric Psych Exam: Appropriate Responses Assessment/Plan Assessment Summary: TWIN/Acute Renal Failure, Fluid/Volume Overload, CKD Stage III Problem List: (1) Generalized weakness (2) COPD (chronic obstructive pulmonary disease) (3) CKD (chronic kidney disease) stage 3, GFR 30-59 ml/min (4) Hypertension (5) History of CHF (congestive heart failure) (6) TWIN (acute kidney injury) Plan Patient has improvement in the urine out put. Now on Bumex and Metolazone. Creatinine is slightly better. On fluid restriction. Continue same Bumex and Metolazone. Urine out put is much better, almost 5 liters. Continue IV Bumex, will try to shift to PO tomorrow. Weight decreasing. Problem Qualifiers (1) Hypertension: Qualified Code: I10 - Essential hypertension Maxwell Shrestha MD February 20, 2017 17:47
[2017-02-20] MEDS: PRAVASTATIN SOD 80 MG TAB PO SCH (20:32)
[2017-02-20] MEDS: SODIUM CHLORIDE 0.9% FLUSH 10 ML FLUSH IVF PRN (20:33)
[2017-02-21] VITALS (11 sets, daily range): BP systolic 103–139; BP diastolic 57–71; PULSE 60–80; RESP 19–20; TEMP 97.5–98; O2SAT 92–97
[2017-02-21] MEDS: RESP: ALBUTEROL 2.5 MG/IPRATROPIUM 0.5 MG NEB (PRN) NEB ×3 (00:36→20:36)
[2017-02-21] MEDS: traMADol HCL 50 MG TAB PO PRN ×4 (01:54→21:00)
[2017-02-21] MEDS: PREGABALIN 25 MG CAP PO SCH ×3 (05:42→21:00)
[2017-02-21] MEDS: TOBRAMYCIN 0.3%/DEXAMETHASONE 0.1% OPHT SUSP 5 ML BTL RIGHT EYE SCH ×4 (05:42→12:00)
[2017-02-21 08:21] LABS: POTASSIUM 3.3 MEQ/L (3.5-5.1)
[2017-02-21] MEDS: AMIODARONE 200 MG TAB PO SCH (08:21)
[2017-02-21] MEDS: POTASSIUM CHLORIDE 20 MEQ CONTROLLED RELEASE TAB PO SCH ×2 (08:21→21:01)
[2017-02-21] MEDS: ASPIRIN EC 81 MG TABEC PO SCH (08:21)
[2017-02-21] MEDS: CLOPIDOGREL 75 MG TAB PO SCH (08:21)
[2017-02-21] MEDS: ISOSORBIDE MONONITRATE 30 MG TAB PO SCH (08:21)
[2017-02-21] MEDS: BUMETANIDE INJ 1 MG/4 ML VIAL IV PUSH SCH (08:21)
[2017-02-21] MEDS: TAMSULOSIN HCL 0.4 MG CAP PO SCH (08:21)
[2017-02-21] MEDS: METOLAZONE 2.5 MG TAB PO SCH ×2 (08:22→21:00)
[2017-02-21] MEDS: ALLOPURINOL 100 MG TAB PO SCH ×2 (08:22→21:01)
[2017-02-21] MEDS: FAMOTIDINE 20 MG TAB PO SCH ×2 (08:22→21:01)
[2017-02-21] MEDS: METOPROLOL TARTRATE 25 MG TAB PO SCH ×2 (08:22→21:01)
[2017-02-21] MEDS: BUDESONIDE-FORMOTEROL 80/4.5 MCG INHALER INH SCH ×2 (08:23→21:00)
[2017-02-21] MEDS ORDERED: POTASSIUM CHLORIDE 20 MEQ CONTROLLED RELEASE TAB PO ONE (09:15)
--- NOTE | 2017-02-21 12:57 | HHI.NPPN ---
Subjective General Problems: Anemia, COPD, Edema, Heart Disease, Hypertension Renal Failure: Stage III History of Present Illness 56-year-old male known to me from before with past medical history of hypertension, ischemic heart disease, congestive heart failure, chronic kidney disease, chronic obstructive pulmonary disease, history of acute kidney injury in the past. He was admitted because of shortness of breath, chest pain and increased weight gain. I was called for management of diuretics and chronic kidney disease. Additional Remarks Patient is alert, feeling better, breathing is better, lost some weight. Review of Systems General Constitutional: Fatigue Respiratory Lungs: SOB, Wheeze Cardiovascular Cardiac: Edema, RIVERA Objective Data Data 02/20/17 02/21/17 19:00 07:00 Intake Total 120 ml Output Total 1000 ml Balance -880 ml Intake Oral 120 ml Output Urine Total 1000 ml # Bowel Movements 1 Vital Signs Date Time Temp Pulse Resp B/P Pulse Ox O2 Delivery O2 Flow Rate FiO2 02/21/17 11:03 16 02/21/17 09:00 60 02/21/17 08:41 96 Nasal Cannula 3.00 02/21/17 08:00 98 Nasal Cannula 3.00 02/21/17 07:48 97.9 75 20 113/71 96 02/21/17 04:00 97.5 70 19 139/60 96 02/21/17 00:37 94 Nasal Cannula 3.00 02/21/17 00:00 97.6 60 20 114/65 93 02/20/17 20:00 97.0 60 18 117/70 96 02/20/17 19:45 63 02/20/17 19:45 Nasal Cannula 3.00 02/20/17 18:02 98 Nasal Cannula 3.00 02/20/17 16:00 98.3 62 18 112/55 98 -: 02/18/17 0500 02/21/17 0605 Physical Exam General Appearance: Well Nourished, No Acute Distress, Comfortable Eyes Eye Exam: Pupils Equal Throat Throat Exam: Oral Mucosa [place] & Moist Neck Neck Exam: Neck Supple Pulmonary Resp Exam: Breath Sounds Equal, No Distress, Rhonchi, Decreased Bases Cardiology CV Exam: Regular, Normal Sinus Rhythm Gastrointestinal/Abdomen GI Exam: Soft, Non-Tender, Bowel Sounds Present Extremeties Extremities Exam: Moderate Edema Neurologic Neuro Exam: Alert, Awake, Oriented Psychiatric Psych Exam: Appropriate Responses Assessment/Plan Assessment Summary: TWIN/Acute Renal Failure, Fluid/Volume Overload, CKD Stage III Problem List: (1) Generalized weakness (2) COPD (chronic obstructive pulmonary disease) (3) CKD (chronic kidney disease) stage 3, GFR 30-59 ml/min (4) Hypertension (5) History of CHF (congestive heart failure) (6) TWIN (acute kidney injury) Plan Patient has improvement in the urine out put. Now on Bumex and Metolazone. Creatinine increased to 2.2. On fluid restriction. Change Bumex to PO and decrease to 1 mg BID. Continue Metolazone. Follow the urine out put and weight. Follow BMP. Problem Qualifiers (1) Hypertension: Qualified Code: I10 - Essential hypertension Maxwell Shrestha MD February 21, 2017 12:57
[2017-02-21] MEDS: BUMETANIDE 1 MG TAB PO SCH (17:44)
[2017-02-21] MEDS: PRAVASTATIN SOD 80 MG TAB PO SCH (21:01)
[2017-02-21] MEDS: ALPRAZolam 0.25 MG TAB PO PRN (21:09)
--- NOTE | 2017-02-21 21:12 | HHI.PR ---
Subjective Remarks pt feeling better Objective Vitals heart reg lung cta abd s/nt ext no edema Vital Signs Date Time Temp Pulse Resp B/P Pulse Ox O2 Delivery O2 Flow Rate FiO2 02/21/17 20:40 94 Nasal Cannula 4.00 02/21/17 19:00 97.9 61 19 108/59 96 02/21/17 17:43 16 02/21/17 16:34 16 02/21/17 16:00 97.9 65 20 103/57 92 02/21/17 12:00 98.0 60 20 111/58 97 02/21/17 09:00 60 02/21/17 08:41 96 Nasal Cannula 3.00 02/21/17 08:00 98 Nasal Cannula 3.00 02/21/17 07:48 97.9 75 20 113/71 96 02/21/17 04:00 97.5 70 19 139/60 96 02/21/17 00:37 94 Nasal Cannula 3.00 02/21/17 00:00 97.6 60 20 114/65 93 02/20/17 02/20/17 02/21/17 15:00 23:00 07:00 Intake Total 120 ml Output Total 1000 ml Balance -880 ml Intake Oral 120 ml Output Urine Total 1000 ml # Bowel Movements 1 Result Diagram: 02/18/17 0500 02/21/17 0605 Imaging Last Impressions Chest X-Ray 02/05/17 1111 Signed Impressions: Service Date/Time: Sunday, February 05, 2017 11:23 - CONCLUSION: 1. Scattered atelectactic changes bilaterally. 2. Chronic elevation of the right hemidiaphragm. Rashawn Milligan MD A/P Problem List: (1) CKD (chronic kidney disease) stage 3, GFR 30-59 ml/min Status: Acute Plan: - Pt admitted with worsening SOB, cough, and weight gain which has been progressing over the last 2 weeks or so. He has hx of diastolic CHF and COPD and ckd 3 with mod/severe arteriosclerosis. - Pt had recently gone on a cruise and was not eating as well as he should have and started noting worsening of his generalized swelling and SOB which he thinks began before he went on the cruise. - Symptoms are likely multifactorial, with diastolic CHF exacerbation and COPD with hypercapnic resp failure and delirium. Pt has been clinically improving. - He is typically on 2L of supplemental O2 at home. - Pt reports a weight gain of around 20lbs over the last 2 weeks. His baseline weight is 225lbs. - Pt has been able to be weaned off BiPAP - attempted diuresis over past 2 weeks with weight increasing once iv bumex stopped -I requested his mate chief dr Shrestha evaluate him given his long hx kidney dz , complicated volume balance, and resistance to diuretics. failed lasix in past. discussed with dr Shrestha,, His weight is down to almost baseling. now cr rising. iv to po bumex and metolazone and rcheck cr in AM. (2) COPD (chronic obstructive pulmonary disease) Status: Acute Plan: see above (3) History of CHF (congestive heart failure) Status: Acute Plan: - See above. (4) Hypertension Status: Chronic Plan: - Home meds continued. - Monitor BP (5) Hyperlipemia Status: Chronic Plan: - Home meds continued (6) CAD (coronary artery disease) Status: Chronic Plan: - Home meds continued. Problem Qualifiers (1) Hypertension: Qualified Code: I10 - Essential hypertension Mahad Finn MD February 21, 2017 21:12
[2017-02-22] VITALS (9 sets, daily range): BP systolic 94–117; BP diastolic 55–61; PULSE 60–88; RESP 15–22; TEMP 97.2–98.2; O2SAT 92–97
[2017-02-22] MEDS: traMADol HCL 50 MG TAB PO PRN ×5 (00:56→17:50)
[2017-02-22] MEDS: PREGABALIN 25 MG CAP PO SCH ×3 (06:17→21:03)
[2017-02-22] MEDS: TOBRAMYCIN 0.3%/DEXAMETHASONE 0.1% OPHT SUSP 5 ML BTL RIGHT EYE SCH ×4 (06:17→16:31)
[2017-02-22 08:30] LABS: ANION GAP 7 MEQ/L (5-15); BICARBONATE GREATER THAN 45.0 MEQ/L (21.0-32.0); BLOOD UREA NITROGEN 42 MG/DL (7-18); CHLORIDE 86 MEQ/L (98-107); GLOMERULAR FILTRATION RATE 27 ML/MIN (>89); MAGNESIUM 2.8 MG/DL (1.5-2.5); SODIUM (NA) 138 MEQ/L (136-145)
[2017-02-22] MEDS: BUMETANIDE 1 MG TAB PO SCH ×2 (09:02→16:31)
[2017-02-22] MEDS: ASPIRIN EC 81 MG TABEC PO SCH (09:02)
[2017-02-22] MEDS: AMIODARONE 200 MG TAB PO SCH (09:02)
[2017-02-22] MEDS: POTASSIUM CHLORIDE 20 MEQ CONTROLLED RELEASE TAB PO SCH ×2 (09:02→21:04)
[2017-02-22] MEDS: METOPROLOL TARTRATE 25 MG TAB PO SCH ×2 (09:03→21:04)
[2017-02-22] MEDS: FAMOTIDINE 20 MG TAB PO SCH ×2 (09:03→21:03)
[2017-02-22] MEDS: CLOPIDOGREL 75 MG TAB PO SCH (09:03)
[2017-02-22] MEDS: METOLAZONE 2.5 MG TAB PO SCH (09:03)
[2017-02-22] MEDS: ALLOPURINOL 100 MG TAB PO SCH ×2 (09:03→21:03)
[2017-02-22] MEDS: ISOSORBIDE MONONITRATE 30 MG TAB PO SCH (09:04)
[2017-02-22] MEDS: BUDESONIDE-FORMOTEROL 80/4.5 MCG INHALER INH SCH ×2 (09:04→21:04)
[2017-02-22] MEDS: TAMSULOSIN HCL 0.4 MG CAP PO SCH (09:04)
[2017-02-22] MEDS: ALPRAZolam 0.25 MG TAB PO PRN ×2 (09:35→21:04)
--- NOTE | 2017-02-22 11:15 | HHI.NPPN ---
Subjective General Problems: Anemia, COPD, Edema, Heart Disease, Hypertension Renal Failure: Stage III History of Present Illness 56-year-old male known to me from before with past medical history of hypertension, ischemic heart disease, congestive heart failure, chronic kidney disease, chronic obstructive pulmonary disease, history of acute kidney injury in the past. He was admitted because of shortness of breath, chest pain and increased weight gain. I was called for management of diuretics and chronic kidney disease. Additional Remarks Patient is alert, now walking, off O2, no SOB. Review of Systems General Constitutional: Fatigue Respiratory Lungs: SOB, Wheeze Cardiovascular Cardiac: Edema, RIVERA Objective Data Data 02/21/17 02/22/17 19:00 07:00 Intake Total 770 ml 530 ml Output Total 1800 ml Balance -1030 ml 530 ml Intake Oral 770 ml 530 ml Output Urine Total 1800 ml # Voids 5 # Bowel Movements 0 0 Vital Signs Date Time Temp Pulse Resp B/P Pulse Ox O2 Delivery O2 Flow Rate FiO2 02/22/17 09:00 69 02/22/17 08:00 98 Nasal Cannula 3.00 02/22/17 08:00 98.2 83 18 117/59 94 02/22/17 04:00 98.1 70 15 94/60 96 02/22/17 00:00 97.2 64 19 104/61 97 02/21/17 20:40 94 Nasal Cannula 4.00 02/21/17 20:00 80 02/21/17 20:00 Nasal Cannula 3.00 02/21/17 19:00 97.9 61 19 108/59 96 02/21/17 17:43 16 02/21/17 16:34 16 02/21/17 16:00 97.9 65 20 103/57 92 02/21/17 12:00 98.0 60 20 111/58 97 -: 02/18/17 0500 02/22/17 0603 Physical Exam General Appearance: Well Nourished, No Acute Distress, Comfortable Eyes Eye Exam: Pupils Equal Throat Throat Exam: Oral Mucosa [place] & Moist Neck Neck Exam: Neck Supple Pulmonary Resp Exam: Breath Sounds Equal, No Distress, Rhonchi, Decreased Bases Cardiology CV Exam: Regular, Normal Sinus Rhythm Gastrointestinal/Abdomen GI Exam: Soft, Non-Tender, Bowel Sounds Present Extremeties Extremities Exam: Moderate Edema Neurologic Neuro Exam: Alert, Awake, Oriented Psychiatric Psych Exam: Appropriate Responses Assessment/Plan Assessment Summary: TWIN/Acute Renal Failure, Fluid/Volume Overload, CKD Stage III Problem List: (1) Generalized weakness (2) COPD (chronic obstructive pulmonary disease) (3) CKD (chronic kidney disease) stage 3, GFR 30-59 ml/min (4) Hypertension (5) History of CHF (congestive heart failure) (6) TWIN (acute kidney injury) Plan Patient has improvement in the urine out put. Now on Bumex and Metolazone. Creatinine increased to 2.5 Has increase Hco3, indicative of overdiuresis. On fluid restriction. On Bumex PO 1 mg BID. Will D/C Metolazone for now. Follow the urine out put and weight. Follow BMP. Problem Qualifiers (1) Hypertension: Qualified Code: I10 - Essential hypertension Maxwell Shrestha MD February 22, 2017 11:15
--- NOTE | 2017-02-22 11:22 | HHI.PR ---
Subjective Remarks feels ok. other than dry mouth Objective Vitals dry lips heart rg lung cta abd s/nt ext no edema Vital Signs Date Time Temp Pulse Resp B/P Pulse Ox O2 Delivery O2 Flow Rate FiO2 02/22/17 09:00 69 02/22/17 08:00 98 Nasal Cannula 3.00 02/22/17 08:00 98.2 83 18 117/59 94 02/22/17 04:00 98.1 70 15 94/60 96 02/22/17 00:00 97.2 64 19 104/61 97 02/21/17 20:40 94 Nasal Cannula 4.00 02/21/17 20:00 80 02/21/17 20:00 Nasal Cannula 3.00 02/21/17 19:00 97.9 61 19 108/59 96 02/21/17 17:43 16 02/21/17 16:34 16 02/21/17 16:00 97.9 65 20 103/57 92 02/21/17 12:00 98.0 60 20 111/58 97 02/21/17 02/21/17 02/22/17 15:00 23:00 07:00 Intake Total 770 ml 480 ml 50 ml Output Total 1800 ml Balance -1030 ml 480 ml 50 ml Intake Oral 770 ml 480 ml 50 ml Output Urine Total 1800 ml # Voids 3 2 # Bowel Movements 0 0 0 Result Diagram: 02/18/17 0500 02/22/17 0603 Imaging Last Impressions Chest X-Ray 02/05/17 1111 Signed Impressions: Service Date/Time: Sunday, February 05, 2017 11:23 - CONCLUSION: 1. Scattered atelectactic changes bilaterally. 2. Chronic elevation of the right hemidiaphragm. Rashawn Milligan MD A/P Problem List: (1) CKD (chronic kidney disease) stage 3, GFR 30-59 ml/min Status: Acute Plan: - Pt admitted with worsening SOB, cough, and weight gain which has been progressing over the last 2 weeks or so. He has hx of diastolic CHF and COPD and ckd 3 with mod/severe arteriosclerosis. - Pt had recently gone on a cruise and was not eating as well as he should have and started noting worsening of his generalized swelling and SOB which he thinks began before he went on the cruise. - Symptoms are likely multifactorial, with diastolic CHF exacerbation and COPD with hypercapnic resp failure and delirium. Pt has been clinically improving. - He is typically on 2L of supplemental O2 at home. - Pt reports a weight gain of around 20lbs over the last 2 weeks. His baseline weight is 225lbs. - Pt has been able to be weaned off BiPAP - attempted diuresis over past 2 weeks with weight increasing once iv bumex stopped -I requested his vp product management dr Shrestha evaluate him given his long hx kidney dz , complicated volume balance, and resistance to diuretics. failed lasix in past. discussed with dr Shrestha,, His weight is down to almost baseling. now cr rising and he looks overdiuresed on po bumex and zaroxyln to be held per renal. hold d/c (2) COPD (chronic obstructive pulmonary disease) Status: Acute Plan: see above (3) History of CHF (congestive heart failure) Status: Acute Plan: - See above. (4) Hypertension Status: Chronic Plan: - Home meds continued. - Monitor BP (5) Hyperlipemia Status: Chronic Plan: - Home meds continued (6) CAD (coronary artery disease) Status: Chronic Plan: - Home meds continued. Problem Qualifiers (1) Hypertension: Qualified Code: I10 - Essential hypertension Mahad Finn MD February 22, 2017 11:22
[2017-02-22] MEDS: RESP: ALBUTEROL 2.5 MG/IPRATROPIUM 0.5 MG NEB (PRN) NEB ×2 (11:34→19:27)
[2017-02-22] MEDS: PRAVASTATIN SOD 80 MG TAB PO SCH (21:04)
[2017-02-22] MEDS: SODIUM CHLORIDE 0.9% FLUSH 10 ML FLUSH IVF PRN (21:04)
[2017-02-23] VITALS (9 sets, daily range): BP systolic 101–126; BP diastolic 56–68; PULSE 59–77; RESP 14–24; TEMP 97.7–98.2; O2SAT 93–97
[2017-02-23] MEDS: traMADol HCL 50 MG TAB PO PRN ×5 (00:38→20:54)
[2017-02-23] MEDS: TOBRAMYCIN 0.3%/DEXAMETHASONE 0.1% OPHT SUSP 5 ML BTL RIGHT EYE SCH ×5 (00:38→23:18)
[2017-02-23] MEDS: PREGABALIN 25 MG CAP PO SCH ×3 (06:12→20:55)
[2017-02-23] MEDS: RESP: ALBUTEROL 2.5 MG/IPRATROPIUM 0.5 MG NEB (PRN) NEB ×2 (07:32→22:16)
[2017-02-23 07:41] LABS: BICARBONATE 43.7 MEQ/L (21.0-32.0); POTASSIUM 3.6 MEQ/L (3.5-5.1)
[2017-02-23] MEDS: BUDESONIDE-FORMOTEROL 80/4.5 MCG INHALER INH SCH ×2 (09:40→20:50)
[2017-02-23] MEDS: POTASSIUM CHLORIDE 20 MEQ CONTROLLED RELEASE TAB PO SCH ×2 (09:41→20:48)
[2017-02-23] MEDS: TAMSULOSIN HCL 0.4 MG CAP PO SCH (09:41)
[2017-02-23] MEDS: ISOSORBIDE MONONITRATE 30 MG TAB PO SCH (09:41)
[2017-02-23] MEDS: ASPIRIN EC 81 MG TABEC PO SCH (09:41)
[2017-02-23] MEDS: ALLOPURINOL 100 MG TAB PO SCH ×2 (09:41→20:47)
[2017-02-23] MEDS: METOPROLOL TARTRATE 25 MG TAB PO SCH ×2 (09:41→20:47)
[2017-02-23] MEDS: CLOPIDOGREL 75 MG TAB PO SCH (09:41)
[2017-02-23] MEDS: FAMOTIDINE 20 MG TAB PO SCH ×2 (09:42→20:47)
[2017-02-23] MEDS: AMIODARONE 200 MG TAB PO SCH (09:42)
[2017-02-23] MEDS: BUMETANIDE 1 MG TAB PO SCH ×2 (09:42→17:16)
--- NOTE | 2017-02-23 12:05 | HHI.NPPN ---
Subjective General Problems: Anemia, COPD, Edema, Heart Disease, Hypertension Renal Failure: Stage III History of Present Illness 56-year-old male known to me from before with past medical history of hypertension, ischemic heart disease, congestive heart failure, chronic kidney disease, chronic obstructive pulmonary disease, history of acute kidney injury in the past. He was admitted because of shortness of breath, chest pain and increased weight gain. I was called for management of diuretics and chronic kidney disease. Additional Remarks Patient is alert, has difficulty starting urination, no dysuria. Review of Systems General Constitutional: Fatigue Respiratory Lungs: SOB, Wheeze Cardiovascular Cardiac: Edema, RIVERA Objective Data Data 02/22/17 02/23/17 19:00 07:00 Intake Total 240 ml 200 ml Output Total 1050 ml 1500 ml Balance -810 ml -1300 ml Intake Oral 240 ml 200 ml Output Urine Total 1050 ml 1500 ml # Bowel Movements 1 Vital Signs Date Time Temp Pulse Resp B/P Pulse Ox O2 Delivery O2 Flow Rate FiO2 02/23/17 09:50 66 02/23/17 09:50 Nasal Cannula 3.00 Humidified 02/23/17 08:00 97.8 71 14 111/62 93 02/23/17 07:34 93 Nasal Cannula 3.00 02/23/17 04:28 98.2 66 20 104/56 96 02/23/17 00:38 97.7 60 22 101/56 97 02/22/17 22:32 98.1 88 22 100/55 95 02/22/17 19:15 Nasal Cannula 2.00 02/22/17 19:15 60 02/22/17 17:23 95 Nasal Cannula 4.00 02/22/17 16:00 97.8 60 18 111/59 95 02/22/17 15:30 16 -: 02/23/17 0648 Physical Exam General Appearance: Well Nourished, No Acute Distress, Comfortable Eyes Eye Exam: Pupils Equal Throat Throat Exam: Oral Mucosa [place] & Moist Neck Neck Exam: Neck Supple Pulmonary Resp Exam: Breath Sounds Equal, No Distress, Rhonchi, Decreased Bases Cardiology CV Exam: Regular, Normal Sinus Rhythm Gastrointestinal/Abdomen GI Exam: Soft, Non-Tender, Bowel Sounds Present Extremeties Extremities Exam: Moderate Edema Neurologic Neuro Exam: Alert, Awake, Oriented Psychiatric Psych Exam: Appropriate Responses Assessment/Plan Assessment Summary: TWIN/Acute Renal Failure, Fluid/Volume Overload, CKD Stage III Problem List: (1) Generalized weakness (2) COPD (chronic obstructive pulmonary disease) (3) CKD (chronic kidney disease) stage 3, GFR 30-59 ml/min (4) Hypertension (5) History of CHF (congestive heart failure) (6) TWIN (acute kidney injury) Plan Patient has improvement in the urine out put. On Bumex only. Creatinine continue to increase, now 2.7. Possible overdiuresis, also to rule out bladder obs. On fluid restriction. On Bumex PO 1 mg BID. Will get Bladder scan. Follow urine out put and BMP. Problem Qualifiers (1) Hypertension: Qualified Code: I10 - Essential hypertension Maxwell Shrestha MD February 23, 2017 12:05
--- NOTE | 2017-02-23 14:27 | HHI.PR ---
Subjective Remarks doing ok. urine stream hard to initiate but once starts good urine output Objective Vitals heart reg lung cta abd s/nt ext no edema Vital Signs Date Time Temp Pulse Resp B/P Pulse Ox O2 Delivery O2 Flow Rate FiO2 02/23/17 12:00 97.7 77 16 109/67 94 02/23/17 09:50 66 02/23/17 09:50 Nasal Cannula 3.00 Humidified 02/23/17 08:00 97.8 71 14 111/62 93 02/23/17 07:34 93 Nasal Cannula 3.00 02/23/17 04:28 98.2 66 20 104/56 96 02/23/17 00:38 97.7 60 22 101/56 97 02/22/17 22:32 98.1 88 22 100/55 95 02/22/17 19:15 Nasal Cannula 2.00 02/22/17 19:15 60 02/22/17 17:23 95 Nasal Cannula 4.00 02/22/17 16:00 97.8 60 18 111/59 95 02/22/17 15:30 16 02/22/17 02/22/17 02/23/17 15:00 23:00 07:00 Intake Total 240 ml 150 ml 50 ml Output Total 1050 ml 500 ml 1000 ml Balance -810 ml -350 ml -950 ml Intake Oral 240 ml 150 ml 50 ml Output Urine Total 1050 ml 500 ml 1000 ml # Bowel Movements 1 Result Diagram: 02/23/17 0648 Imaging Last Impressions Chest X-Ray 02/05/17 1111 Signed Impressions: Service Date/Time: Sunday, February 05, 2017 11:23 - CONCLUSION: 1. Scattered atelectactic changes bilaterally. 2. Chronic elevation of the right hemidiaphragm. Rashawn Milligan MD A/P Problem List: (1) CKD (chronic kidney disease) stage 3, GFR 30-59 ml/min Status: Acute Plan: - Pt admitted with worsening SOB, cough, and weight gain which has been progressing over the last 2 weeks or so. He has hx of diastolic CHF and COPD and ckd 3 with mod/severe arteriosclerosis. - Pt had recently gone on a cruise and was not eating as well as he should have and started noting worsening of his generalized swelling and SOB which he thinks began before he went on the cruise. - Symptoms are likely multifactorial, with diastolic CHF exacerbation and COPD with hypercapnic resp failure and delirium. Pt has been clinically improving. - He is typically on 2L of supplemental O2 at home. - Pt reports a weight gain of around 20lbs over the last 2 weeks. His baseline weight is 225lbs. - Pt has been able to be weaned off BiPAP - attempted diuresis over past 2 weeks with weight increasing once iv bumex stopped -I requested his baby counselor dr Shrestha evaluate him given his long hx kidney dz , complicated volume balance, and resistance to diuretics. failed lasix in past. discussed with dr Shrestha,, His weight is down to almost baseline. now cr rising and he looks overdiuresed renal is continuing bumex lower dose and stopped zaroxyln. monitor weight and cr (2) COPD (chronic obstructive pulmonary disease) Status: Acute Plan: see above (3) History of CHF (congestive heart failure) Status: Acute Plan: - See above. (4) Hypertension Status: Chronic Plan: - Home meds continued. - Monitor BP (5) Hyperlipemia Status: Chronic Plan: - Home meds continued (6) CAD (coronary artery disease) Status: Chronic Plan: - Home meds continued. Problem Qualifiers (1) Hypertension: Qualified Code: I10 - Essential hypertension Mahad Finn MD February 23, 2017 14:27
[2017-02-23] MEDS: PRAVASTATIN SOD 80 MG TAB PO SCH (20:48)
[2017-02-23] MEDS: ALPRAZolam 0.25 MG TAB PO PRN (23:16)
[2017-02-24] VITALS (8 sets, daily range): BP systolic 95–157; BP diastolic 54–78; PULSE 61–96; RESP 18–22; TEMP 97.3–98.2; O2SAT 92–97
[2017-02-24] MEDS: traMADol HCL 50 MG TAB PO PRN ×3 (05:58→21:31)
[2017-02-24] MEDS: PREGABALIN 25 MG CAP PO SCH ×3 (05:58→21:21)
[2017-02-24] MEDS: TOBRAMYCIN 0.3%/DEXAMETHASONE 0.1% OPHT SUSP 5 ML BTL RIGHT EYE SCH ×3 (06:01→16:29)
[2017-02-24] MEDS: RESP: ALBUTEROL 2.5 MG/IPRATROPIUM 0.5 MG NEB (PRN) NEB ×2 (08:49→22:39)
[2017-02-24] MEDS: METOPROLOL TARTRATE 25 MG TAB PO SCH ×2 (08:57→21:23)
[2017-02-24] MEDS: FAMOTIDINE 20 MG TAB PO SCH ×2 (08:57→21:22)
[2017-02-24] MEDS: BUMETANIDE 1 MG TAB PO SCH ×2 (08:57→16:27)
[2017-02-24] MEDS: CLOPIDOGREL 75 MG TAB PO SCH (08:57)
[2017-02-24] MEDS: ASPIRIN EC 81 MG TABEC PO SCH (08:57)
[2017-02-24] MEDS: BUDESONIDE-FORMOTEROL 80/4.5 MCG INHALER INH SCH ×2 (08:58→21:23)
[2017-02-24] MEDS: TAMSULOSIN HCL 0.4 MG CAP PO SCH (08:58)
[2017-02-24] MEDS: AMIODARONE 200 MG TAB PO SCH (08:58)
[2017-02-24] MEDS: POTASSIUM CHLORIDE 20 MEQ CONTROLLED RELEASE TAB PO SCH (08:58)
[2017-02-24] MEDS: ISOSORBIDE MONONITRATE 30 MG TAB PO SCH (08:58)
[2017-02-24] MEDS: ALLOPURINOL 100 MG TAB PO SCH ×2 (08:58→21:23)
[2017-02-24 12:58] LABS: POTASSIUM 3.1 MEQ/L (3.5-5.1)
--- NOTE | 2017-02-24 13:20 | HHI.PR ---
Subjective Remarks dry mouth. Objective Vitals heart reg lung cta abd s/nt ext no edema Vital Signs Date Time Temp Pulse Resp B/P Pulse Ox O2 Delivery O2 Flow Rate FiO2 02/24/17 09:09 Nasal Cannula 3.00 02/24/17 08:49 96 Nasal Cannula 3.00 02/24/17 08:00 97.3 78 22 136/78 92 02/24/17 04:00 98.2 82 18 99/64 95 02/24/17 00:00 97.9 61 18 95/54 97 02/23/17 20:45 Nasal Cannula 3.00 Humidified 02/23/17 20:30 97.8 62 20 107/68 94 02/23/17 20:06 59 02/23/17 16:00 97.7 63 24 126/59 96 02/23/17 02/23/17 02/24/17 14:59 22:59 06:59 Intake Total 240 ml Output Total 1250 ml 600 ml 700 ml Balance -1010 ml -600 ml -700 ml Intake Oral 240 ml Output Urine Total 1250 ml 600 ml 700 ml # Voids 1 # Bowel Movements 1 1 Result Diagram: 02/24/17 1142 Imaging Last Impressions Chest X-Ray 02/05/17 1111 Signed Impressions: Service Date/Time: Sunday, February 05, 2017 11:23 - CONCLUSION: 1. Scattered atelectactic changes bilaterally. 2. Chronic elevation of the right hemidiaphragm. Rashawn Milligan MD A/P Problem List: (1) CKD (chronic kidney disease) stage 3, GFR 30-59 ml/min Status: Acute Plan: - Pt admitted with worsening SOB, cough, and weight gain which has been progressing over the last 2 weeks or so. He has hx of diastolic CHF and COPD and ckd 3 with mod/severe arteriosclerosis. - Pt had recently gone on a cruise and was not eating as well as he should have and started noting worsening of his generalized swelling and SOB which he thinks began before he went on the cruise. - Symptoms are likely multifactorial, with diastolic CHF exacerbation and COPD with hypercapnic resp failure and delirium. Pt has been clinically improving. - He is typically on 2L of supplemental O2 at home. - Pt reports a weight gain of around 20lbs over the last 2 weeks. His baseline weight is 225lbs. - Pt has been able to be weaned off BiPAP - attempted diuresis with weight increasing once iv bumex stopped -I requested his director of software engineering dr Shrestha evaluate him given his long hx kidney dz , complicated volume balance, and resistance to diuretics. failed lasix in past. discussed with dr Shrestha,, His weight is down to almost baseline. now cr rising and he looks overdiuresed renal is continuing bumex lower dose and stopped zaroxyln. monitor weight and cr which is better today. (2) COPD (chronic obstructive pulmonary disease) Status: Acute Plan: see above (3) History of CHF (congestive heart failure) Status: Acute Plan: - See above. (4) Hypertension Status: Chronic Plan: - Home meds continued. - Monitor BP (5) Hyperlipemia Status: Chronic Plan: - Home meds continued (6) CAD (coronary artery disease) Status: Chronic Plan: - Home meds continued. Problem Qualifiers (1) Hypertension: Qualified Code: I10 - Essential hypertension Mahad Finn MD February 24, 2017 13:20
[2017-02-24] MEDS ORDERED: POTASSIUM CHLORIDE 20 MEQ CONTROLLED RELEASE TAB PO ONE ×2 (14:00→20:00)
--- NOTE | 2017-02-24 14:10 | HHI.NPPN ---
Subjective General Problems: Anemia, COPD, Edema, Heart Disease, Hypertension Renal Failure: Stage III History of Present Illness 56-year-old male known to me from before with past medical history of hypertension, ischemic heart disease, congestive heart failure, chronic kidney disease, chronic obstructive pulmonary disease, history of acute kidney injury in the past. He was admitted because of shortness of breath, chest pain and increased weight gain. I was called for management of diuretics and chronic kidney disease. Additional Remarks Patient is alert, still has difficulty starting urination, no dysuria, no SOB. Review of Systems General Constitutional: Fatigue Respiratory Lungs: SOB, Wheeze Cardiovascular Cardiac: Edema, RIVERA Objective Data Data 02/23/17 02/24/17 19:00 07:00 Intake Total 240 ml Output Total 1250 ml 1300 ml Balance -1010 ml -1300 ml Intake Oral 240 ml Output Urine Total 1250 ml 1300 ml # Voids 1 # Bowel Movements 2 Vital Signs Date Time Temp Pulse Resp B/P Pulse Ox O2 Delivery O2 Flow Rate FiO2 02/24/17 12:00 97.3 80 22 98/58 93 02/24/17 09:09 Nasal Cannula 3.00 02/24/17 08:49 96 Nasal Cannula 3.00 02/24/17 08:00 97.3 78 22 136/78 92 02/24/17 04:00 98.2 82 18 99/64 95 02/24/17 00:00 97.9 61 18 95/54 97 02/23/17 20:45 Nasal Cannula 3.00 Humidified 02/23/17 20:30 97.8 62 20 107/68 94 02/23/17 20:06 59 02/23/17 16:00 97.7 63 24 126/59 96 -: 02/24/17 1142 Physical Exam General Appearance: Well Nourished, No Acute Distress, Comfortable Eyes Eye Exam: Pupils Equal Throat Throat Exam: Oral Mucosa [place] & Moist Neck Neck Exam: Neck Supple Pulmonary Resp Exam: Breath Sounds Equal, No Distress, Rhonchi, Decreased Bases Cardiology CV Exam: Regular, Normal Sinus Rhythm Gastrointestinal/Abdomen GI Exam: Soft, Non-Tender, Bowel Sounds Present Extremeties Extremities Exam: Moderate Edema Neurologic Neuro Exam: Alert, Awake, Oriented Psychiatric Psych Exam: Appropriate Responses Assessment/Plan Assessment Summary: TWIN/Acute Renal Failure, Fluid/Volume Overload, CKD Stage III Problem List: (1) Generalized weakness (2) COPD (chronic obstructive pulmonary disease) (3) CKD (chronic kidney disease) stage 3, GFR 30-59 ml/min (4) Hypertension (5) History of CHF (congestive heart failure) (6) TWIN (acute kidney injury) Plan Patient has improvement in the urine out put. On Bumex only. Creatinine improve slightly, and now is 2.37 On fluid restriction. On Bumex PO 1 mg BID. Follow urine out put and BMP. Weight is stable. If Creatinine continue to improve, possibly can be discharged. Problem Qualifiers (1) Hypertension: Qualified Code: I10 - Essential hypertension Maxwell Shrestha MD February 24, 2017 14:10
[2017-02-24] MEDS: ALPRAZolam 0.25 MG TAB PO PRN (16:27)
[2017-02-24] MEDS: PRAVASTATIN SOD 80 MG TAB PO SCH (21:22)
[2017-02-25] VITALS (8 sets, daily range): BP systolic 104–145; BP diastolic 56–64; PULSE 59–100; RESP 16–20; TEMP 97.4–98.3; O2SAT 95–97
[2017-02-25] MEDS: ALPRAZolam 0.25 MG TAB PO PRN (00:14)
[2017-02-25] MEDS: TOBRAMYCIN 0.3%/DEXAMETHASONE 0.1% OPHT SUSP 5 ML BTL RIGHT EYE SCH ×5 (00:14→23:50)
[2017-02-25] MEDS: PREGABALIN 25 MG CAP PO SCH ×3 (06:08→14:02)
[2017-02-25] MEDS: traMADol HCL 50 MG TAB PO PRN ×5 (06:08→21:12)
[2017-02-25] MEDS: RESP: ALBUTEROL 2.5 MG/IPRATROPIUM 0.5 MG NEB (PRN) NEB ×2 (06:42→15:33)
[2017-02-25] MEDS: POTASSIUM CHLORIDE 20 MEQ CONTROLLED RELEASE TAB PO SCH ×2 (08:20→21:07)
[2017-02-25] MEDS: BUMETANIDE 1 MG TAB PO SCH (08:20)
[2017-02-25] MEDS: AMIODARONE 200 MG TAB PO SCH (08:20)
[2017-02-25] MEDS: ISOSORBIDE MONONITRATE 30 MG TAB PO SCH (08:20)
[2017-02-25] MEDS: FAMOTIDINE 20 MG TAB PO SCH ×2 (08:21→21:07)
[2017-02-25] MEDS: ASPIRIN EC 81 MG TABEC PO SCH (08:21)
[2017-02-25] MEDS: TAMSULOSIN HCL 0.4 MG CAP PO SCH (08:21)
[2017-02-25] MEDS: ALLOPURINOL 100 MG TAB PO SCH ×2 (08:21→21:07)
[2017-02-25] MEDS: METOPROLOL TARTRATE 25 MG TAB PO SCH ×2 (08:21→21:07)
[2017-02-25] MEDS: CLOPIDOGREL 75 MG TAB PO SCH (08:21)
[2017-02-25] MEDS: BUDESONIDE-FORMOTEROL 80/4.5 MCG INHALER INH SCH ×2 (08:23→23:50)
[2017-02-25 11:27] LABS: BICARBONATE 42.5 MEQ/L (21.0-32.0)
[2017-02-25 11:29] LABS: POTASSIUM 3.9 MEQ/L (3.5-5.1)
--- NOTE | 2017-02-25 16:14 | HHI.NPPN ---
Subjective General Problems: Anemia, COPD, Edema, Heart Disease, Hypertension Renal Failure: Stage III History of Present Illness 56-year-old male known to me from before with past medical history of hypertension, ischemic heart disease, congestive heart failure, chronic kidney disease, chronic obstructive pulmonary disease, history of acute kidney injury in the past. He was admitted because of shortness of breath, chest pain and increased weight gain. I was called for management of diuretics and chronic kidney disease. Additional Remarks Patient is alert, seen in AM, no SOB, still has pain at start of urination. Review of Systems General Constitutional: Fatigue Respiratory Lungs: SOB, Wheeze Cardiovascular Cardiac: Edema, RIVERA Objective Data Data 02/24/17 02/25/17 18:59 06:59 Intake Total 480 ml Output Total 800 ml 2200 ml Balance -320 ml -2200 ml Intake Oral 480 ml Output Urine Total 800 ml 2200 ml # Bowel Movements 1 Vital Signs Date Time Temp Pulse Resp B/P Pulse Ox O2 Delivery O2 Flow Rate FiO2 02/25/17 12:00 97.9 59 18 104/61 96 02/25/17 08:00 97.7 60 16 111/61 95 02/25/17 08:00 94 Nasal Cannula 3.00 Humidified 02/25/17 07:38 95 Nasal Cannula 3.00 02/25/17 04:00 98.3 100 18 145/61 95 02/25/17 00:00 98.2 66 20 115/61 95 02/24/17 21:30 Nasal Cannula 3.00 Humidified 02/24/17 20:00 97.8 64 18 157/68 96 02/24/17 19:19 61 -: 02/25/17 1038 Physical Exam General Appearance: Well Nourished, No Acute Distress, Comfortable Eyes Eye Exam: Pupils Equal Throat Throat Exam: Oral Mucosa [place] & Moist Neck Neck Exam: Neck Supple Pulmonary Resp Exam: Breath Sounds Equal, No Distress, Rhonchi, Decreased Bases Cardiology CV Exam: Regular, Normal Sinus Rhythm Gastrointestinal/Abdomen GI Exam: Soft, Non-Tender, Bowel Sounds Present Extremeties Extremities Exam: Moderate Edema Neurologic Neuro Exam: Alert, Awake, Oriented Psychiatric Psych Exam: Appropriate Responses Assessment/Plan Assessment Summary: TWIN/Acute Renal Failure, Fluid/Volume Overload, CKD Stage III Problem List: (1) Generalized weakness (2) COPD (chronic obstructive pulmonary disease) (3) CKD (chronic kidney disease) stage 3, GFR 30-59 ml/min (4) Hypertension (5) History of CHF (congestive heart failure) (6) TWIN (acute kidney injury) Plan Patient has improvement in the urine out put. On Bumex only. Creatinine increase now to 2.5. On fluid restriction. Weight is decreasing Urine out put is 3 liters. Decrease Bumex to once a day. Check UA for possible UTI. Problem Qualifiers (1) Hypertension: Qualified Code: I10 - Essential hypertension Maxwell Shrestha MD February 25, 2017 16:14
--- NOTE | 2017-02-25 16:46 | HHI.PR ---
Subjective Remarks No new complaints. Objective Vitals Vital Signs Date Time Temp Pulse Resp B/P Pulse Ox O2 Delivery O2 Flow Rate FiO2 02/25/17 12:00 97.9 59 18 104/61 96 02/25/17 08:00 97.7 60 16 111/61 95 02/25/17 08:00 94 Nasal Cannula 3.00 Humidified 02/25/17 07:38 95 Nasal Cannula 3.00 02/25/17 04:00 98.3 100 18 145/61 95 02/25/17 00:00 98.2 66 20 115/61 95 02/24/17 21:30 Nasal Cannula 3.00 Humidified 02/24/17 20:00 97.8 64 18 157/68 96 02/24/17 19:19 61 02/24/17 02/24/17 02/25/17 15:00 23:00 07:00 Intake Total 480 ml Output Total 800 ml 1800 ml 400 ml Balance -320 ml -1800 ml -400 ml Intake Oral 480 ml Output Urine Total 800 ml 1800 ml 400 ml # Bowel Movements 1 Result Diagram: 02/25/17 1038 Imaging Last Impressions Chest X-Ray 02/16/17 0800 Signed Impressions: Service Date/Time: Thursday, February 16, 2017 08:14 - CONCLUSION: Chronic elevation right hemidiaphragm with bibasilar densities likely atelectasis. Víctor Samson MD Objective Remarks GENERAL: This is a well-nourished, well-developed patient, in no apparent distress. CARDIOVASCULAR: Regular rate and rhythm without murmurs, gallops, or rubs. RESPIRATORY: Clear to auscultation. Breath sounds equal bilaterally. No wheezes , rales, or rhonchi. GASTROINTESTINAL: Abdomen soft, non-tender, nondistended. Normal active bowel sounds MUSCULOSKELETAL: Extremities without clubbing, cyanosis, or edema. NEURO: Alert & Oriented x4 to person, place, time, situation. Moves all ext x4 A/P Problem List: (1) CKD (chronic kidney disease) stage 3, GFR 30-59 ml/min Status: Acute Plan: - Pt admitted with worsening SOB, cough, and weight gain which has been progressing over the last 2 weeks or so. He has hx of diastolic CHF and COPD and ckd 3 with mod/severe arteriosclerosis. - Pt had recently gone on a cruise and was not eating as well as he should have and started noting worsening of his generalized swelling and SOB which he thinks began before he went on the cruise. - Symptoms are likely multifactorial, with diastolic CHF exacerbation and COPD with hypercapnic resp failure and delirium. Pt has been clinically improving. - He is typically on 2L of supplemental O2 at home. - Pt reports a weight gain of around 20lbs over the last 2 weeks. His baseline weight is 225lbs. - Pt has been able to be weaned off BiPAP - attempted diuresis with weight increasing once iv bumex stopped - comgmt with Nephrology, Dr. Shrestha - His weight is down to almost baseline. now cr rising - bumex converted back to PO and now dose changed from BID to daily - repeat BMP, Mg, phos in AM (2) COPD (chronic obstructive pulmonary disease) Status: Acute Plan: see above (3) History of CHF (congestive heart failure) Status: Acute Plan: - See above. (4) Hypertension Status: Chronic Plan: - Home meds continued. - Monitor BP (5) Hyperlipemia Status: Chronic Plan: - Home meds continued (6) CAD (coronary artery disease) Status: Chronic Plan: - Home meds continued. Problem Qualifiers (1) Hypertension: Qualified Code: I10 - Essential hypertension Sunny Jenkins DO February 25, 2017 16:46 (1) Hypertension: Qualified Code: I10 - Essential hypertension Sunny Jenkins DO February 25, 2017 16:46
[2017-02-25] MEDS: PRAVASTATIN SOD 80 MG TAB PO SCH (21:07)
[2017-02-25 21:32] LABS: BLOOD, URINE NEG (NEG); COMMENT (UR) CULT NOT INDICATED; CULTURE IF INDICATED CULT NOT INDICATED; GLUCOSE,URINE NEG (NEG); HYALINE CAST, URINE 5 /lpf (RARE); KETONE, URINE NEG (NEG); NITRITE,URINE NEG (NEG); SQUAMOUS EPITHELIAL CELL URINE <1 /hpf (0-5); URINE COLOR YELLOW (YELLW/STRAW)
[2017-02-26] VITALS (7 sets, daily range): BP systolic 92–122; BP diastolic 59–71; PULSE 62–86; RESP 18; TEMP 97.5–98; O2SAT 94–96
[2017-02-26] MEDS: RESP: ALBUTEROL 2.5 MG/IPRATROPIUM 0.5 MG NEB (PRN) NEB (02:42)
[2017-02-26] MEDS: traMADol HCL 50 MG TAB PO PRN ×3 (02:57→12:45)
[2017-02-26] MEDS: PREGABALIN 25 MG CAP PO SCH (06:02)
[2017-02-26] MEDS: TOBRAMYCIN 0.3%/DEXAMETHASONE 0.1% OPHT SUSP 5 ML BTL RIGHT EYE SCH ×2 (06:02→08:14)
[2017-02-26] MEDS: BUDESONIDE-FORMOTEROL 80/4.5 MCG INHALER INH SCH (08:14)
[2017-02-26] MEDS: ISOSORBIDE MONONITRATE 30 MG TAB PO SCH (08:15)
[2017-02-26] MEDS: FAMOTIDINE 20 MG TAB PO SCH (08:15)
[2017-02-26] MEDS: CLOPIDOGREL 75 MG TAB PO SCH (08:15)
[2017-02-26] MEDS: ALLOPURINOL 100 MG TAB PO SCH (08:15)
[2017-02-26] MEDS: ASPIRIN EC 81 MG TABEC PO SCH (08:15)
[2017-02-26] MEDS: AMIODARONE 200 MG TAB PO SCH (08:16)
[2017-02-26] MEDS: METOPROLOL TARTRATE 25 MG TAB PO SCH (08:16)
[2017-02-26] MEDS: TAMSULOSIN HCL 0.4 MG CAP PO SCH (08:16)
[2017-02-26] MEDS: POTASSIUM CHLORIDE 20 MEQ CONTROLLED RELEASE TAB PO SCH (08:16)
[2017-02-26] MEDS ORDERED: BUMETANIDE 1 MG TAB PO SCH (09:00)
[2017-02-26 09:13] LABS: AUTOMATED NEUTROPHIL # 5.6 TH/MM3 (1.8-7.7); BASOPHIL # 0.1 TH/MM3 (0-0.2); BASOPHIL % 0.9 % (0.0-2.0); EOSINOPHIL # 0.4 TH/MM3 (0-0.4); EOSINOPHIL % 4.9 % (0.0-4.0); HEMATOCRIT 40.2 % (39.0-51.0); HEMO FLAGS DIFF FINAL; LYMPH % 12.2 % (9.0-44.0); LYMPHOCYTE # 0.9 TH/MM3 (1.0-4.8); MEAN CELL VOLUME 84.4 FL (80.0-100.0); MEAN CORPUSCULAR HEMOGLOBIN 26.7 PG (27.0-34.0); MEAN CORPUSCULAR HGB CONC 31.7 % (32.0-36.0); MONO % 7.8 % (0.0-8.0); NEUT % 74.2 % (16.0-70.0); PLATELET COUNT 167 TH/MM3 (150-450); RED BLOOD COUNT 4.76 MIL/MM3 (4.50-5.90); RED CELL DISTRIBUTION WIDTH 17.9 % (11.6-17.2); WHITE BLOOD COUNT 7.6 TH/MM3 (4.0-11.0)
[2017-02-26 09:20] LABS: BICARBONATE 39.2 MEQ/L (21.0-32.0); MAGNESIUM 2.6 MG/DL (1.5-2.5); POTASSIUM 3.4 MEQ/L (3.5-5.1)
[2017-02-26] MEDS ORDERED: BUME1TAB26 PO (12:04)
--- NOTE | 2017-02-26 12:23 | HHI.DS ---
Discharge Summary Admission Date February 05, 2017 at 12:37 Discharge Date: February 26, 2017 Admitting Diagnosis COPD, Hypercapnia, CHF (1) CKD (chronic kidney disease) stage 3, GFR 30-59 ml/min Diagnosis: Principal (2) History of CHF (congestive heart failure) Diagnosis: Principal (3) COPD (chronic obstructive pulmonary disease) Diagnosis: Secondary (4) Hypertension Diagnosis: Secondary (5) Hyperlipemia Diagnosis: Secondary (6) CAD (coronary artery disease) Diagnosis: Secondary Consultants Dr. Allen Shrestha, Nephrology Brief History Mr. Rodriguez is a 56 y/o WM with significant cardiac history to include MA 9, CHF with EF 50% and grade 1 diastolic dysfunction on echo from 02/2016, CAD s/p CABG 6, AICD, hypertension, and COPD. Pt reported to the ED at [facility] progressive generalized swelling and weight gain over the last 2 weeks. He states that it started before he left for a cruise around 10 days ago. He states that he went on a cruise and ate foods he wasn't supposed to and started having swelling and then started eating salads. He's been back from the cruise for a few days and has been taking his Bumex and has been diuresing well. He states that currently the swelling on his LE is slightly improving. He states that he was having some cough and sputum production that began a few weeks ago as well. This has not been worsening. His weight went up to 245lbs as of this morning per the pt. He states that his baseline weight is around 225lb. In the ED the patiet was reportedly more confusion and somewhat somnolent. ABG confirmed hypercarbia which appears to be chronic and pt was placed on a BiPAP. Labs were obtained which were unremarkable. BNP is indeterminate. Chest x- ray is unrevealing. Patient was treated with steroids, bronchodilators, and a dose of Bumex. At the time of our examination pts mentation seems to be at his baseline. He is able to provide history appropriately. CBC/BMP: 02/26/17 0657 02/26/17 0657 Significant Findings Laboratory Tests Test 02/24/17 02/25/17 02/26/17 11:42 10:38 06:57 Potassium Level 3.1 MEQ/L 3.4 MEQ/L (3.5-5.1) (3.5-5.1) Chloride Level 89 MEQ/L 93 MEQ/L 96 MEQ/L (98-107) (98-107) (98-107) Carbon Dioxide Level 44.0 MEQ/L 42.5 MEQ/L 39.2 MEQ/L (21.0-32.0) (21.0-32.0) (21.0-32.0) Blood Urea Nitrogen 55 MG/DL (7-18) 61 MG/DL (7-18) 60 MG/DL (7-18) Creatinine 2.37 MG/DL 2.51 MG/DL 2.48 MG/DL (0.60-1.30) (0.60-1.30) (0.60-1.30) Estimat Glomerular Filtration 28 ML/MIN (>89) 27 ML/MIN (>89) 27 ML/MIN (>89) Rate Random Glucose 112 MG/DL 113 MG/DL 109 MG/DL (74-106) (74-106) (74-106) Hemoglobin 12.7 GM/DL (13.0-17.0) Mean Corpuscular Hemoglobin 26.7 PG (27.0-34.0) Mean Corpuscular Hemoglobin 31.7 % Concent (32.0-36.0) Red Cell Distribution Width 17.9 % (11.6-17.2) Neutrophils (%) (Auto) 74.2 % (16.0-70.0) Eosinophils (%) (Auto) 4.9 % (0.0-4.0) Lymphocytes # (Auto) 0.9 TH/MM3 (1.0-4.8) Magnesium Level 2.6 MG/DL (1.5-2.5) Imaging Last Impressions Chest X-Ray 02/16/17 0800 Signed Impressions: Service Date/Time: Thursday, February 16, 2017 08:14 - CONCLUSION: Chronic elevation right hemidiaphragm with bibasilar densities likely atelectasis. Víctor Samson MD PE at Discharge GENERAL: This is a well-nourished, well-developed patient, in no apparent distress. CARDIOVASCULAR: Regular rate and rhythm without murmurs, gallops, or rubs. RESPIRATORY: Clear to auscultation. Breath sounds equal bilaterally. No wheezes , rales, or rhonchi. GASTROINTESTINAL: Abdomen soft, non-tender, nondistended. Normal active bowel sounds MUSCULOSKELETAL: Extremities without clubbing, cyanosis, or edema. NEURO: Alert & Oriented x4 to person, place, time, situation. Moves all ext x4 Hospital Course (1) CKD (chronic kidney disease) stage 3, GFR 30-59 ml/min Status: Acute Plan: - Pt admitted with worsening SOB, cough, and weight gain which has been progressing over the last 2 weeks prior to hospitalization. He has hx of diastolic CHF and COPD and ckd 3 with mod/severe arteriosclerosis. - Pt had recently gone on a cruise and was not eating as well as he should have and started noting worsening of his generalized swelling and SOB which he thinks began before he went on the cruise. - Symptoms are likely multifactorial, with diastolic CHF exacerbation and COPD with hypercapnic resp failure and delirium. - He is typically on 2L of supplemental O2 at home. - Pt reports a weight gain of around 20lbs over the last 2 weeks. His baseline weight is 225lbs. - Pt has been able to be weaned off BiPAP - attempted diuresis with weight increasing once iv bumex stopped - comgmt with Nephrology, Dr. Shrestha - His weight is down to almost baseline. now cr rising - bumex converted back to PO and now dose changed from BID to daily - Pt ambulating in the hallways off oxygen - Case d/w Dr. Shrestha (02/26/17) - Pt needs to continue 1,200ml fluid restriction upon discharge. We suspect lack of adherence to low salt diet and fluid restriction is contributing to pt' s illness and hospitalizations - Pt will need to continue fluid restriction upon discharge - f/u with Dr. Shrestha in 2 weeks - repeat BMP 03/04/[address] Shrestha. - see discharge orders (2) COPD (chronic obstructive pulmonary disease) Status: Acute Plan: see above (3) History of CHF (congestive heart failure) Status: Acute Plan: - See above. (4) Hypertension Status: Chronic Plan: - Home meds continued. - Monitor BP (5) Hyperlipemia Status: Chronic Plan: - Home meds continued (6) CAD (coronary artery disease) Status: Chronic Plan: - Home meds continued. Pt Condition on Discharge: Stable Discharge Disposition: Discharge Home Discharge Instructions DIET: Follow Instructions for: Heart Healthy Diet Activities you can perform: Regular-No Restrictions Follow up Referrals: Nephrology - [address] Allen Shrestha PCP Follow-up - [address] Dax [place] New Medications: Bumetanide (Bumex) 1 Mg Tab 1 MG PO DAILY chf #30 Ref 0 TAB Continued Medications: Albuterol Powder Inh (Proair Respiclick Inh) 90 Mcg/Act Aerp 2 PUFF INH Q6H PRN SHORTNESS OF BREATH #1 Ref 0 INHALER Allopurinol (Allopurinol) 100 Mg Tab 100 MG PO BID Gout #30 Ref 0 TAB Alprazolam (Alprazolam) 0.25 Mg Tab 0.25 MG PO TID PRN ANXIETY Ref 0 TAB Amiodarone (Amiodarone) 200 Mg Tab 200 MG PO DAILY Regulate Heart Beat #30 Ref [address] (Aspirin EC) 81 Mg Tabdr 81 MG PO DAILY Ref 0 TAB Clopidogrel (Plavix) 75 Mg Tab 75 MG PO DAILY Blood Clot Prevention #30 Ref 0 TAB Ipratropium Neb (Ipratropium Neb) 0.5 Mg/2.5 Ml Amp 0.5 MG NEB TID NEB PRN SOB/WHEEZING Ref 0 NEBULE Isosorbide Mononitrate ER (Isosorbide Mononitrate ER) 30 Mg Adolph 30 MG PO DAILY Prevent Chest Pain #30 Ref 0 TAB Metoprolol Tartrate (Metoprolol Tartrate) 25 Mg Tab 25 MG PO BID #60 Ref 0 TAB Nitroglycerin SL (Nitroglycerin SL) 0.4 Mg Subl 0.4 MG SL DIRECTED ONE TABLET UNDER THE TONGUE NEEDED FOR CHEST PAIN, MAY REPEAT EVERY FIVE MINUTES FOR A TOTAL OF 3 DOSES OR CALL 911 IF NO RELIEF PRN CHEST PAIN #100 Ref 0 TAB.SL Potassium Chloride ER (K-Tab) 20 Meq Tab 20 MEQ PO BID Electrolyte Replacement #60 Ref 0 TAB Pregabalin (Lyrica) 50 Mg Cap 50 MG PO TID #90 Ref 0 CAP Ranitidine (Ranitidine) 300 Mg Tab 300 MG PO DAILY Heartburn Management #30 Ref 0 TAB Simvastatin (Zocor) 80 Mg Tab 80 MG PO HS Cholesterol Management #30 Ref 0 TAB Tamsulosin (Tamsulosin) 0.4 Mg Cap 0.4 MG PO DAILY Manage Prostate Problems #30 Ref 0 CAP Tobramycin-Dexamethasone Opth Drops (Tobradex Opth Drops) 0.3-0.1 % Susp 1 DROP RIGHT EYE Q6H Infection/Inflammation #1 Ref 0 BOTTLE Tramadol (Tramadol) 50 Mg Tab 50 MG PO Q4H PRN PAIN SCALE 1-10 Ref 0 TAB ([Symbicort Capsule]) 1 CAP NEB BID NEB Discontinued Medications: Bumetanide (Bumetanide) 2 Mg Tab 2 MG PO AC BREAKFAST Ref 0 TAB Bumetanide (Bumetanide) 1 Mg Tab 1 MG PO AC DINNER #30 Ref 0 TAB Fluticasone 12 GM Inh (Flovent Hfa 12 GM Inh) 110 Mcg/Act Inh 2 PUFF INH BID Asthma Management #1 Ref 0 INHALER Fluticasone-Vilanterol Inh (Breo Ellipta Inh) 100-25 Mcg/Act Inh 1 PUFF INH DAILY Use daily at the same time. #1 Ref 0 INHALER Sodium Chloride Neb (Sodium Chloride Neb) 0.9 % Neb 3 ML INH BID Breathing Treatment #100 Ref 0 NEBULSunny Linares DO February 26, 2017 12:23
== END 2017-02-26 14:25 | disposition home or self-care (01) | DRG 291 ==
LOC: NEPC 10:53 → NEDA 12:37 → HCIS 18:41 → N04A 02-12 20:08
PROVIDERS: ADMIT Hospitalist; ATTEND Hospitalist
PROC: 5A09357 Assistance with Respiratory Ventilation, Less than 24 Consecutive Hours, Continuous Positive Airway Pressure (ICD-10-PCS; principal; 2017-02-05)
DX: I13.0 Hypertensive heart and chronic kidney disease with heart failure and stage 1 through stage 4 chronic kidney disease, or unspecified chronic kidney disease (principal); I50.33 Acute on chronic diastolic (congestive) heart failure; J96.92 Respiratory failure, unspecified with hypercapnia; E87.2 Acidosis; J44.1 Chronic obstructive pulmonary disease with (acute) exacerbation; N17.9 Acute kidney failure, unspecified; G20 Parkinson's disease; Z99.81 Dependence on supplemental oxygen; N18.3 Chronic kidney disease, stage 3 (moderate); I25.10 Atherosclerotic heart disease of native coronary artery without angina pectoris; M19.90 Unspecified osteoarthritis, unspecified site; K21.9 Gastro-esophageal reflux disease without esophagitis; I25.2 Old myocardial infarction; D64.9 Anemia, unspecified; R00.0 Tachycardia, unspecified; M10.9 Gout, unspecified; E78.5 Hyperlipidemia, unspecified; N40.0 Benign prostatic hyperplasia without lower urinary tract symptoms; F32.9 Major depressive disorder, single episode, unspecified; F41.9 Anxiety disorder, unspecified; E66.9 Obesity, unspecified; Z68.33 Body mass index [BMI] 33.0-33.9, adult; Z86.73 Personal history of transient ischemic attack (TIA), and cerebral infarction without residual deficits; Z87.891 Personal history of nicotine dependence; Z88.2 Allergy status to sulfonamides; Z88.5 Allergy status to narcotic agent; Z95.810 Presence of automatic (implantable) cardiac defibrillator; Z95.1 Presence of aortocoronary bypass graft
CPT/HCPCS: 36600; 71010; 71020; 80048; 80053; 81001; 82550; 82805; 83735; 83880; 84100; 84484; 85025; 85610; 85730; 93005; 94002; 94003; 94640; 94664; 96374; 96375; J2930; J7512; J7613

== ENCOUNTER 2017-04-18 15:08 | Emergency (ER) | payer OTHER ==
[~2017-04-18 15:08] MED LIST changes: -AUGM500T7 PO; -BUME1TAB PO; +BUME1TAB26 PO; -BUME2TAB PO; -COLC1TAB15 PO; -FLUT1INH INH; -FLUTI110I INH; -MUCI600T PO; -PRED10 PO; -SODI0.9N3 INH; +TOBRO RIGHT EYE; -ZITHTAB PO
[2017-04-18 15:20] VITALS: O2SAT 94
[2017-04-18 15:25] VITALS: BP 154/76; PULSE 67; RESP 18; TEMP 97.8; O2SAT 92
[2017-04-18] MEDS ORDERED: ACETAMINOPHEN/HYDROcodone 325 MG/5 MG TAB PO ONE (15:30)
[2017-04-18] MEDS ORDERED: SODIUM CHLORIDE 0.9% FLUSH 10 ML FLUSH IVF PRN (15:30)
--- NOTE | 2017-04-18 15:39 | PD ---
HPI Chief Complaint: Chest Pain Time Seen by Provider: 15:20 Travel History International Travel<30 days: No Contact w/Intl Traveler<30days: No Traveled to known affect area: No History of Present Illness HPI Patient's 56 years old. He was at a grocery store today and he became lightheaded. His symptoms were severe. He states typically they proceed a syncope type episode. The patient then lost consciousness L to the ground woke up staring at the ceiling. He reports occipital scalp pain and forehead pain associated with contusion/swelling. He has a pacemaker defibrillator. He was able to obtain information regarding the rhythm at home and evidently he had a run of ventricular tachycardia as high as 220 bpm prior to discharge. He states he has had no medical complaints lately and has more or less been at his baseline state of health. Dr Brice' office has been contacted and states they will send to us an interrogation report. PFSH Past Medical History Hx Anticoagulant Therapy: Yes Arthritis: Yes Asthma: No Autoimmune Disease: No Blood Disorders: No Anxiety: Yes Depression: No Heart Rhythm Problems: No Cancer: No Cardiac Catheterization: Yes (X9) Cardiovascular Problems: Yes (VTACH, CAD) High Cholesterol: Yes Chemotherapy: No Chest Pain: Yes Congestive Heart Failure: Yes COPD: No Cerebrovascular Accident: No Coronary Artery Disease: Yes Diabetes: Yes Diminished Hearing: No Endocrine: Yes Gastrointestinal Disorders: Yes (GERD) GERD: Yes Gout: Yes Genitourinary: Yes Headaches: No Hepatitis: No Hiatal Hernia: No Hypertension: Yes Immune Disorder: No Inguinal Hernia: Yes Implanted Vascular Access Dvce: Yes Insomnia: Yes Kidney Stones: Yes Musculoskeletal: No Neurologic: No Parkinson's Disease: Yes Psychiatric: Yes Reproductive: No Respiratory: No Migraines: No Myocardial Infarction: Yes Radiation Therapy: No Renal Failure: No Seizures: No Shingles: Yes Sleep Apnea: No Thyroid Disease: No Triglycerides - High: Yes Ulcer: No Past Surgical History Abdominal Surgery: Yes AICD: Yes Appendectomy: Yes Arteriovenous Shunt: No Body Medical Devices: stent-cardiac Cardiac Surgery: No Cholecystectomy: Yes Coronary Artery Bypass Graft: Yes (X6) Coronary Stent: Yes (X1) Ear Surgery: No Endocrine Surgery: No Eye Surgery: No Genitourinary Surgery: No Gynecologic Surgery: No Insulin Pump: No Joint Replacement: No Neurologic Surgery: No Oral Surgery: No Pacemaker: Yes Thoracic Surgery: No Tonsillectomy: Yes Valve Replacement: Yes Other Surgery: Yes (R INGUNIAL HERNIA REPAIR) Family History Family Hypercholesterolemia: Yes Social History Alcohol Use: No Tobacco Use: No Substance Use: No Allergies-Medications (Allergen,Severity, Reaction): Coded Allergies: Percocet (Verified Allergy, Severe, RASH, 02/05/17) Sulfa (Verified Allergy, Severe, HIVES, 02/05/17) Ativan (Verified Adverse Reaction, Severe, 02/05/17) MAKES PT "CRAZY" Reported Meds & Prescriptions Reported Meds & Active Scripts Active Bumex (Bumetanide) 1 Mg Tab 1 Mg PO DAILY Reported Tobradex Opth Drops (Tobramycin/Dexamethasone) 0.3-0.1 % Susp 1 Drop RIGHT EYE Q6H Allopurinol 100 Mg Tab 100 Mg PO BID Alprazolam 0.25 Mg Tab 0.25 Mg PO TID PRN Amiodarone (Amiodarone HCl) 200 Mg Tab 200 Mg PO DAILY Aspirin EC (Aspirin) 81 Mg Tabdr 81 Mg PO DAILY Plavix (Clopidogrel Bisulfate) 75 Mg Tab 75 Mg PO DAILY Nitroglycerin SL (Nitroglycerin) 0.4 Mg Subl 0.4 Mg SL DIRECTED PRN ONE TABLET UNDER THE TONGUE NEEDED FOR CHEST PAIN, MAY REPEAT EVERY FIVE MINUTES FOR A TOTAL OF 3 DOSES OR CALL 911 IF NO RELIEF K-Tab (Potassium Chloride) 20 Meq Tab 20 Meq PO BID Isosorbide Mononitrate ER (Isosorbide Mononitrate) 30 Mg [place]olph 30 Mg PO DAILY Metoprolol Tartrate 25 Mg Tab 25 Mg PO BID Lyrica (Pregabalin) 50 Mg Cap 50 Mg PO TID Ranitidine (Ranitidine HCl) 300 Mg Tab 300 Mg PO DAILY Zocor (Simvastatin) 80 Mg Tab 80 Mg PO HS Tamsulosin (Tamsulosin HCl) 0.4 Mg Cap 0.4 Mg PO DAILY Tramadol (Tramadol HCl) 50 Mg Tab 50 Mg PO Q4H PRN [Symbicort Capsule] 1 Cap NEB BID NEB Ipratropium Neb (Ipratropium [place]) 0.5 Mg/2.5 Ml Amp 0.5 Mg NEB TID NEB PRN Proair Respiclick Inh (Albuterol Sulfate) 90 Mcg/Act Aerp 2 Puff INH Q6H PRN Review of Systems Except as stated in HPI: all other systems reviewed are Neg Physical Exam Narrative GENERAL: 56-year-old male well-nourished well-developed SKIN: Focused skin assessment warm/dry. HEAD: Atraumatic. Normocephalic. 4 cm midline anterior scalp cephalohematoma. 5 cm right occipital scalp cephalohematoma. EYES: Pupils equal and round. No scleral icterus. No injection or drainage. ENT: No nasal bleeding or discharge. Mucous membranes pink and moist. NECK: Trachea midline. No JVD. CARDIOVASCULAR: Regular rate and rhythm. No murmur appreciated. RESPIRATORY: No accessory muscle use. Clear to auscultation. Breath sounds equal bilaterally. GASTROINTESTINAL: Abdomen soft, non-tender, nondistended. Hepatic and splenic margins not palpable. MUSCULOSKELETAL: No obvious deformities. No clubbing. No cyanosis. No edema. NEUROLOGICAL: Awake and alert. No obvious cranial nerve deficits. Motor grossly within normal limits. Normal speech. PSYCHIATRIC: Appropriate mood and affect; insight and judgment normal. Data Data Last Documented VS Vital Signs Date Time Temp Pulse Resp B/P Pulse Ox O2 Delivery O2 Flow Rate FiO2 04/18/17 15:25 97.8 67 18 154/76 92 VS reviewed Orders Electrocardiogram (04/18/17 15:30) Basic Metabolic Panel (Bmp) (04/18/17 15:30) B-Type Natriuretic Peptide (04/18/17 15:30) Ckmb (Isoenzyme) Profile (04/18/17 15:30) Complete Blood Count With Diff (04/18/17 15:30) Magnesium (Mg) (04/18/17 15:30) Prothrombin Time / Inr (Pt) (04/18/17 15:30) Act Partial Throm Time (Ptt) (04/18/17 15:30) Troponin I (04/18/17 15:30) Chest, Single Ap (04/18/17 15:30) Ecg Monitoring (04/18/17 15:30) Iv Access Insert/Monitor (04/18/17 15:30) Oximetry (04/18/17 15:30) Oxygen Administration (04/18/17 15:30) Sodium Chloride 0.9% Flush (Ns Flush) (04/18/17 15:30) Acetamin-Hydrocod 325-5 Mg ([place] 5-325 (04/18/17 15:30) [facility] Medical Decision Making Medical Screen Exam Complete: Yes Emergency Medical Condition: Yes Differential Diagnosis NSTEMI, unstable angina, coronary vasospasm, PE, PTX, aortic dissection, pericarditis, myocarditis, endocarditis, PNA, esophageal disease, aneurysm, musculoskeletal etiologies, anxiety, cocaine/sympathomimetic abuse Narrative Course EKG: Sinus, atrial paced rhythm, rate 61, stable LBBB Results pending at time of dictation. The oncoming provider will follow bloodwork and review the interrogation report for the patient's [employer] pacing device which will be sent from Dr. Bhandari's office. The patient's primary provider is Dr. [place]. Santos Perez MD Apr 18, 2017 15:38
[2017-04-18 15:42] LABS: AUTOMATED NEUTROPHIL # 7.4 TH/MM3 (1.8-7.7); BASOPHIL % 0.5 % (0.0-2.0); EOSINOPHIL % 0.4 % (0.0-4.0); HEMATOCRIT 43.5 % (39.0-51.0); HEMO FLAGS DIFF FINAL; LYMPH % 11.4 % (9.0-44.0); MEAN CELL VOLUME 81.8 FL (80.0-100.0); MEAN CORPUSCULAR HEMOGLOBIN 26.6 PG (27.0-34.0); MEAN CORPUSCULAR HGB CONC 32.5 % (32.0-36.0); MONO % 8.5 % (0.0-8.0); NEUT % 79.2 % (16.0-70.0); PLATELET COUNT 236 TH/MM3 (150-450); RED BLOOD COUNT 5.32 MIL/MM3 (4.50-5.90); RED CELL DISTRIBUTION WIDTH 14.5 % (11.6-17.2); WHITE BLOOD COUNT 9.2 TH/MM3 (4.0-11.0)
[2017-04-18] MEDS ORDERED: BUME1TAB PO (15:45)
[2017-04-18] MEDS ORDERED: BUME2TAB PO (15:45)
[2017-04-18 15:54] LABS: CHLORIDE 104 MEQ/L (98-107); POTASSIUM 3.3 MEQ/L (3.5-5.1); SODIUM (NA) 143 MEQ/L (136-145)
[2017-04-18 15:57] LABS: ANION GAP 6 MEQ/L (5-15); MAGNESIUM 2.4 MG/DL (1.5-2.5)
[2017-04-18 15:58] LABS: BLOOD UREA NITROGEN 24 MG/DL (7-18)
[2017-04-18 16:01] LABS: APTT (PATIENT) 25.4 SEC (24.3-30.1); GLOMERULAR FILTRATION RATE 39 ML/MIN (>89); PROTHROMBIN TIME - PATIENT 10.9 SEC (9.8-11.6)
[2017-04-18 16:09] LABS: CREATINE KINASE 39 U/L (39-308)
--- NOTE | 2017-04-18 16:36 | RADRPT ---
EXAM DATE/TIME: 04/18/2017 15:51 [facility] COMPARISON: CHEST SINGLE AP, February 06, 2017, 4:09. INDICATIONS : Patient states his pacemaker went off and he fell, he is having chest pain. MEDICAL HISTORY : Myocardial infarction. SURGICAL HISTORY : Pacemaker. CABG. ENCOUNTER: Initial ACUITY: 1 day PAIN SCORE: 4/10 LOCATION: Bilateral chest FINDINGS: One surgical features of median sternotomy and cardiac surgery. There is a dual-lead AICD device. Ove rall, the leads are stable in position in comparison to prior exam. There is continued elevation of t he right hemidiaphragm with right lower lung zone airspace disease. Mild interstitial prominence ramirez lar to previous exam. Cardiac silhouette is mildly enlarged. Remainder of the exam is unchanged. CONCLUSION: 1. Mild cardiomegaly with positive fluid balance. 2. Grossly stable dual-lead AICD leads. 3. Remainder of the exam is unchanged. Talib Donahue MD on April 18, 2017 at 16:33 Board Certified Radiologist. This report was verified electronically.
--- NOTE | 2017-04-18 16:37 | PD ---
Physical Exam Date Seen by Provider: Apr 18, 2017 Time Seen by Provider: 16:35 Narrative 56-year-old male had presented after a syncopal episode. He was in the supermarket when he felt weak he went to his knees and the next thing he knew he was on the ground. He thinks he hit his head pretty hard he has a bruise on both the front and the back of his head. He has an AICD that was placed last year because he was having syncope. He has history of bypass 2. The AICD has not fired for several months. He does have a history of CHF and kidney failure. He is on aspirin and Plavix. Data Data Last Documented VS Vital Signs Date Time Temp Pulse Resp B/P Pulse Ox O2 Delivery O2 Flow Rate FiO2 04/18/17 16:51 61 16 126/79 92 Nasal Cannula 2 04/18/17 15:25 97.8 Orders Electrocardiogram (04/18/17 15:30) Basic Metabolic Panel (Bmp) (04/18/17 15:30) B-Type Natriuretic Peptide (04/18/17 15:30) Ckmb (Isoenzyme) Profile (04/18/17 15:30) Complete Blood Count With Diff (04/18/17 15:30) Magnesium (Mg) (04/18/17 15:30) Prothrombin Time / Inr (Pt) (04/18/17 15:30) Act Partial Throm Time (Ptt) (04/18/17 15:30) Troponin I (04/18/17 15:30) Chest, Single Ap (04/18/17 15:30) Ecg Monitoring (04/18/17 15:30) Iv Access Insert/Monitor (04/18/17 15:30) Oximetry (04/18/17 15:30) Oxygen Administration (04/18/17 15:30) Sodium Chloride 0.9% Flush (Ns Flush) (04/18/17 15:30) Acetamin-Hydrocod 325-5 Mg ([place] 5-325 (04/18/17 15:30) Ct Brain W/O Iv Contrast(Rout) (04/18/17 15:44) Ct Cerv Spine W/O Contrast (04/18/17 ) Potassium Chloride Eff (K-Lyte Cl Eff) (04/18/17 16:45) Labs Laboratory Tests Test 04/18/17 15:36 White Blood Count 9.2 TH/MM3 Red Blood Count 5.32 MIL/MM3 Hemoglobin 14.2 GM/DL Hematocrit 43.5 % Mean Corpuscular Volume 81.8 FL Mean Corpuscular Hemoglobin 26.6 PG Mean Corpuscular Hemoglobin 32.5 % Concent Red Cell Distribution Width 14.5 % Platelet Count 236 TH/MM3 Mean Platelet Volume 8.5 FL Neutrophils (%) (Auto) 79.2 % Lymphocytes (%) (Auto) 11.4 % Monocytes (%) (Auto) 8.5 % Eosinophils (%) (Auto) 0.4 % Basophils (%) (Auto) 0.5 % Neutrophils # (Auto) 7.4 TH/MM3 Lymphocytes # (Auto) 1.0 TH/MM3 Monocytes # (Auto) 0.8 TH/MM3 Eosinophils # (Auto) 0.0 TH/MM3 Basophils # (Auto) 0.0 TH/MM3 CBC Comment DIFF FINAL Differential Comment Prothrombin Time 10.9 SEC Prothromb Time International 1.0 RATIO Ratio Activated Partial 25.4 SEC Thromboplast Time Sodium Level 143 MEQ/L Potassium Level 3.3 MEQ/L Chloride Level 104 MEQ/L Carbon Dioxide Level 33.0 MEQ/L Anion Gap 6 MEQ/L Blood Urea Nitrogen 24 MG/DL Creatinine 1.80 MG/DL Estimat Glomerular Filtration 39 ML/MIN Rate Random Glucose 108 MG/DL Calcium Level 9.1 MG/DL Magnesium Level 2.4 MG/DL Total Creatine Kinase 39 U/L Troponin I LESS THAN 0.02 NG/ML B-Type Natriuretic Peptide 159 PG/ML [facility] Medical Record Reviewed: Yes Supervised Visit with BHUPENDRA: Yes Differential Diagnosis Differential includes dysrhythmia, intracerebral hemorrhage, electrolyte imbalance Narrative Course Chest x-ray is read as showing mild cardiomegaly with positive fluid balance. There is grossly stable to lead AICD leads. Remainder of exam is unchanged. Patient has elevation of the right hemidiaphragm which has been present on previous x-rays there is mild interstitial prominence similar to previous exam. His potassium is 3.3. Creatinine is 1.8. Troponin 0.02. BNP 159. CT scans of the head and neck are both read as negative. The patient's monitor apparently can be monitored remotely at Dr. Brice office and they report that the patient did have an episode of ventricular tachycardia that was terminated by shock. Diagnosis Primary Impression: Dysrhythmia, cardiac Qualified Code: I47.2 - Ventricular tachycardia Additional Impressions: Contusion of head Qualified Code: S00.03XA - Contusion of scalp, initial encounter Hypokalemia Additional Instruction: Increase potassium to 3 times daily Disposition: 01 DISCHARGE HOME Condition: Stable Leland Parada MD Apr 18, 2017 16:37
[2017-04-18] MEDS ORDERED: POTASSIUM CHLORIDE 25 MEQ EFFERVESCENT TAB PO ONE (16:45)
[2017-04-18 16:51] VITALS: BP 126/79; PULSE 61; RESP 16; O2SAT 92
--- NOTE | 2017-04-18 16:58 | RADRPT ---
EXAM DATE/TIME: 04/18/2017 16:13 [facility] COMPARISON: CT BRAIN W/O CONTRAST, September 07, 2015, 19:16. INDICATIONS : Fall, contusion to frontal and occipital areas. RADIATION DOSE: 68.72 CTDIvol (mGy) MEDICAL HISTORY : Parkinson's. Cardiovascular disease Chronic obstructive pulmonary disease. SURGICAL HISTORY : Tonsillectomy. CABGPacemaker.Sinus surgery. ENCOUNTER: Initial ACUITY: 1 day PAIN SCALE: 7/10 LOCATION: occipital TECHNIQUE: Multiple contiguous axial images were obtained of the head. Using automated exposure control and adj ustment of the mA and/or kV according to patient size, radiation dose was kept as low as reasonably a chievable to obtain optimal diagnostic quality images. DICOM format image data is available electro nically for review and comparison. FINDINGS: CEREBRUM: The ventricles are normal for age. No evidence of midline shift, mass lesion, hemorrhage or acute in farction. No extra-axial fluid collections are seen. POSTERIOR FOSSA: The cerebellum and brainstem are intact. The 4th ventricle is midline. The cerebellopontine angle i s unremarkable. EXTRACRANIAL: The visualized portion of the orbits is intact. A soft tissue hematoma is seen involving the left fro ntal and right posterior parietal near the vertex soft tissues. SKULL: The calvaria is intact. No evidence of skull fracture. CONCLUSION: 1. No acute intracranial abnormality. 2. Soft tissue hematomas involving the left frontal and posterior right parietal regions. Rod Hu Jr., MD on April 18, 2017 at 16:54 Board Certified Radiologist. This report was verified electronically.
--- NOTE | 2017-04-18 17:03 | RADRPT ---
EXAM DATE/TIME: 04/18/2017 16:13 [facility] COMPARISON: No previous studies available for comparison. INDICATIONS : Fall, posterior neck pain. RADIATION DOSE: 26.47 CTDIvol (mGy) MEDICAL HISTORY : Parkinson's. Cardiovascular disease Chronic obstructive pulmonary disease. SURGICAL HISTORY : Pacemaker. CABGTonsillectomy. ENCOUNTER: Initial ACUITY: 1 day PAIN SCALE: 3/10 LOCATION: neck TECHNIQUE: Volumetric scanning of the cervical spine was performed. Multiplanar reconstructions in the sagittal, coronal and oblique axial planes were performed. Using automated exposure control and adjustment o f the mA and/or kV according to patient size, radiation dose was kept as low as reasonably achievable to obtain optimal diagnostic quality images. DICOM format image data is available electronically f or review and comparison. FINDINGS: No evidence of subluxation. No definite fracture is seen for technique. C2-C3: There is no evidence for any significant compromise to the thecal sac, or the exiting nerve roots. N o appreciable thecal sac stenosis is seen. The neural foramina and lateral recess appear patent bila terally. C3-C4: Slight degenerative changes are seen within the disc space and facets. Slight bulging disc and hypert rophic changes are seen with indentation on the thecal sac and no significant compromise to the theca l sac or the exiting nerve roots. C4-C5: Slight bulging disc and hypertrophic changes are seen with indentation on the thecal sac and no signi ficant compromise to the thecal sac or the exiting nerve roots. Slight degenerative changes are seen within the disc space and facets. C5-C6: Moderate degenerative changes are seen within the disc space and facets. Slight bulging disc and hype rtrophic changes are seen with indentation on the thecal sac and no significant compromise to the the doe sac or the exiting nerve roots. C6-C7: Slight bulging disc and hypertrophic changes are seen with indentation on the thecal sac and no signi ficant compromise to the thecal sac or the exiting nerve roots. Moderate degenerative changes are see n within the disc space and facets. C7-T1: There is no evidence for any significant compromise to the thecal sac, or the exiting nerve roots. N o appreciable thecal sac stenosis is seen. The neural foramina and lateral recess appear patent bila terally. CONCLUSION: Degenerative spondylosis without any significant compromise to the thecal sac or the exiting nerve ro ots. Tessa Mina MD on April 18, 2017 at 16:52 Board Certified Radiologist. This report was verified electronically.
[2017-04-18 17:40] VITALS: BP 128/86
--- NOTE | 2017-04-20 11:08 | EKG ---
Date Performed: 04/18/2017 Time Performed: 15:16:11 PTAGE: 56 years EKG: baseline artifact. possible atrial pacemaker MARKED LEFT AXIS DEVIATION LEFT BUNDLE BRANCH BLOCK ABNORMAL ECG INTERPRETATION BASED ON A DEFAULT AGE OF 40 YEARS PREVIOUS TRACING : 02/05/2017 11.21 DOCTOR: Yobani Doan Interpretating Date/Time 04/20/2017 10:59:35
== END 2017-04-18 17:45 | disposition home or self-care (01) ==
LOC: PHED 15:08
DX: I47.2 Ventricular tachycardia (principal); E87.6 Hypokalemia; I11.0 Hypertensive heart disease with heart failure; S00.03XA Contusion of scalp, initial encounter; W19.XXXA Unspecified fall, initial encounter; Y92.512 Supermarket, store or market as the place of occurrence of the external cause
CPT/HCPCS: 70450; 71010; 72125; 80048; 82550; 83735; 83880; 84484; 85025; 85610; 85730; 93005; 99285

== ENCOUNTER 2017-06-14 09:42 | Observation (INO) | payer OTHER ==
[2017-06-14] VITALS (9 sets, daily range): BP systolic 107–127; BP diastolic 65–87; PULSE 60–81; RESP 16–18; TEMP 97.7–98.2; O2SAT 93–97
[~2017-06-14] VITALS: Ht 175.3 cm; Wt 109.2 kg
[~2017-06-14 09:42] MED LIST changes: +BUME1TAB PO; -BUME1TAB26 PO; +BUME2TAB PO; -SYMBICORT NEB; -TOBRO RIGHT EYE; -ZOCO80TA PO
[2017-06-14] MEDS ORDERED: SODIUM CHLORIDE 0.9% FLUSH 10 ML FLUSH IVF PRN (10:00)
[2017-06-14] MEDS ORDERED: BUMETANIDE INJ 1 MG/4 ML VIAL IV PUSH ONE (10:00)
--- NOTE | 2017-06-14 10:04 | PD ---
HPI Chief Complaint: syncope Time Seen by Provider: 09:51 Travel History International Travel<30 days: No Contact w/Intl Traveler<30days: No Traveled to known affect area: No History of Present Illness HPI This 56-year-old male long cardiac history. He says he has a history of congestive failure. Recently he has been gaining weight and his ankles have been swollen. He's been feeling a bit short of breath. He has bilateral without 3 or 4 times. He has a history of ventricular tachycardia. He has a pacemaker defibrillator in place. He is having some mid chest and left-sided chest pain. He also has a history of renal problems. Recently his amiodarone has been increased because he was having bouts of ventricular tachycardia. He says he was eating a bagel this morning when he passed out. He woke up choking on the bagel but believes he has gotten it all out. I have contacted Dr. Brice office in his event monitor is set at a rate of 167, May did not have any events recorded from this morning. He says he feels like he has to urinate but is unable to(he gets bouts like this periodically PFSH Past Medical History Hx Anticoagulant Therapy: Yes Arthritis: Yes Asthma: No Autoimmune Disease: No Blood Disorders: No Anxiety: Yes Depression: No Heart Rhythm Problems: No Cancer: No Cardiac Catheterization: Yes (X9) Cardiovascular Problems: Yes (VTACH, CAD) High Cholesterol: Yes Chemotherapy: No Chest Pain: Yes Congestive Heart Failure: Yes COPD: No Cerebrovascular Accident: No Coronary Artery Disease: Yes Diabetes: Yes Diminished Hearing: No Endocrine: Yes Gastrointestinal Disorders: Yes (GERD) GERD: Yes Gout: Yes Genitourinary: Yes Headaches: No Hepatitis: No Hiatal Hernia: No Heparin Induced Thrombocytopen: No Hypertension: Yes Immune Disorder: No Inguinal Hernia: Yes Implanted Vascular Access Dvce: Yes Insomnia: Yes Kidney Stones: Yes Musculoskeletal: No Neurologic: No Parkinson's Disease: Yes Psychiatric: Yes Reproductive: No Respiratory: No Migraines: No Myocardial Infarction: Yes Radiation Therapy: No Renal Failure: No Seizures: No Shingles: Yes Sleep Apnea: No Thyroid Disease: No Triglycerides - High: Yes Ulcer: No Past Surgical History Abdominal Surgery: Yes AICD: Yes Appendectomy: Yes Arteriovenous Shunt: No Body Medical Devices: pacer aicd Cholecystectomy: Yes Coronary Artery Bypass Graft: Yes (X6) Coronary Stent: Yes (X1) Ear Surgery: No Endocrine Surgery: No Eye Surgery: No Genitourinary Surgery: No Gynecologic Surgery: No Insulin Pump: No Joint Replacement: No Neurologic Surgery: No Oral Surgery: No Pacemaker: Yes (medtronic) Thoracic Surgery: No Tonsillectomy: Yes Valve Replacement: Yes Other Surgery: Yes (R INGUNIAL HERNIA REPAIR) Family History Family Hypercholesterolemia: Yes Social History Alcohol Use: No Tobacco Use: No Substance Use: No Allergies-Medications (Allergen,Severity, Reaction): Coded Allergies: Sulfa (Sulfonamide Antibiotics) (Unverified Allergy, Severe, HIVES, 06/14/17 ) acetaminophen (Unverified Allergy, Severe, PT DENIES, 06/14/17) oxycodone (Unverified Allergy, Severe, RASH, 06/14/17) lorazepam (Unverified Adverse Reaction, Severe, 06/14/17) MAKES PT "CRAZY" Reported Meds & Prescriptions Reported Meds & Active Scripts Active Reported Bumetanide 2 Mg Tab 2 Mg PO DAILY Bumetanide 1 Mg Tab 1 Mg PO HS Allopurinol 100 Mg Tab 300 Mg PO DAILY Alprazolam 0.25 Mg Tab 0.25 Mg PO TID PRN Amiodarone (Amiodarone HCl) 200 Mg Tab 200 Mg PO BID Aspirin EC (Aspirin) 81 Mg Tabdr 81 Mg PO DAILY Plavix (Clopidogrel Bisulfate) 75 Mg Tab 75 Mg PO DAILY Nitroglycerin SL (Nitroglycerin) 0.4 Mg Subl 0.4 Mg SL DIRECTED PRN ONE TABLET UNDER THE TONGUE NEEDED FOR CHEST PAIN, MAY REPEAT EVERY FIVE MINUTES FOR A TOTAL OF 3 DOSES OR CALL 911 IF NO RELIEF K-Tab (Potassium Chloride) 20 Meq Tab 20 Meq PO TID Isosorbide Mononitrate ER (Isosorbide Mononitrate) 30 Mg Adolph 30 Mg PO DAILY Metoprolol Tartrate 25 Mg Tab 25 Mg PO BID Lyrica (Pregabalin) 50 Mg Cap 50 Mg PO TID Ranitidine (Ranitidine HCl) 300 Mg Tab 150 Mg PO DAILY Tamsulosin (Tamsulosin HCl) 0.4 Mg Cap 0.4 Mg PO DAILY Tramadol (Tramadol HCl) 50 Mg Tab 50 Mg PO Q4H PRN Ipratropium Neb (Ipratropium [place]) 0.5 Mg/2.5 Ml Amp 0.5 Mg NEB TID NEB PRN Proair Respiclick Inh (Albuterol Sulfate) 90 Mcg/Act Aerp 2 Puff INH Q6H PRN Review of Systems General / Constitutional: No: Fever, Chills Eyes: No: Diploplia, Blurred Vision HENT: No: Headaches, Vertigo Cardiovascular: Positive: Chest Pain or Discomfort, Syncope, Edema Respiratory: Positive: Shortness of Breath Gastrointestinal: No: Nausea, Vomiting Musculoskeletal: No: Myalgias, Arthralgias Skin: No Rash, No Itching Endocrine: No: Heat Intolerance Hematologic/Lymphatic: No: Easy Bruising Physical Exam Narrative GENERAL: Well-developed SKIN: Focused skin assessment warm/dry. HEAD: Atraumatic. Normocephalic. EYES: Pupils equal and round. No scleral icterus. No injection or drainage. ENT: No nasal bleeding or discharge. Mucous membranes pink and moist. NECK: Trachea midline. No JVD. CARDIOVASCULAR: Regular rate and rhythm. No murmur appreciated. RESPIRATORY: No accessory muscle use. Clear to auscultation. Breath sounds equal bilaterally. GASTROINTESTINAL: Abdomen soft, non-tender, nondistended. Hepatic and splenic margins not palpable. MUSCULOSKELETAL: No obvious deformities. No clubbing. No cyanosis. Trace pedal edema. NEUROLOGICAL: Awake and alert. No obvious cranial nerve deficits. Motor grossly within normal limits. Normal speech. PSYCHIATRIC: Appropriate mood and affect; insight and judgment normal. Data Data Last Documented VS Vital Signs Date Time Temp Pulse Resp B/P (MAP) Pulse Ox O2 Delivery O2 Flow Rate FiO2 06/14/17 10:32 60 18 97 Nasal Cannula 3.00 06/14/17 10:05 98.0 127/82 (97) Orders Orders Complete Blood Count With Diff (06/14/17 10:00) Comprehensive Metabolic Panel (06/14/17 10:00) B-Type Natriuretic Peptide (06/14/17 10:00) Act Partial Throm Time (Ptt) (06/14/17 10:00) Prothrombin Time / Inr (Pt) (06/14/17 10:00) Magnesium (Mg) (06/14/17 10:00) Troponin I (06/14/17 10:00) Urinalysis - C+S If Indicated (06/14/17 10:00) Iv Access Insert/Monitor (06/14/17 10:00) Electrocardiogram (06/14/17 10:00) Ecg Monitoring (06/14/17 10:00) Oximetry (06/14/17 10:00) Oxygen Administration (06/14/17 10:00) Chest, Single Ap (06/14/17 10:00) Sodium Chloride 0.9% Flush (Ns Flush) (06/14/17 10:00) Bumetanide Inj (Bumex Inj) (06/14/17 10:00) Labs Laboratory Tests Test 06/14/17 10:05 White Blood Count 7.9 TH/MM3 Red Blood Count 4.82 MIL/MM3 Hemoglobin 12.9 GM/DL Hematocrit 39.6 % Mean Corpuscular Volume 82.2 FL Mean Corpuscular Hemoglobin 26.8 PG Mean Corpuscular Hemoglobin Concent 32.6 % Red Cell Distribution Width 16.2 % Platelet Count 230 TH/MM3 Mean Platelet Volume 8.6 FL Neutrophils (%) (Auto) 63.0 % Lymphocytes (%) (Auto) 21.2 % Monocytes (%) (Auto) 10.6 % Eosinophils (%) (Auto) 3.3 % Basophils (%) (Auto) 1.9 % Neutrophils # (Auto) 5.0 TH/MM3 Lymphocytes # (Auto) 1.7 TH/MM3 Monocytes # (Auto) 0.8 TH/MM3 Eosinophils # (Auto) 0.3 TH/MM3 Basophils # (Auto) 0.1 TH/MM3 CBC Comment AUTO DIFF Prothrombin Time 10.1 SEC Prothromb Time International Ratio 0.9 RATIO Activated Partial Thromboplast Time 21.0 SEC Blood Urea Nitrogen 40 MG/DL Creatinine 2.20 MG/DL Random Glucose 93 MG/DL Total Protein 7.3 GM/DL Albumin 3.5 GM/DL Calcium Level 8.5 MG/DL Magnesium Level 2.6 MG/DL Alkaline Phosphatase 79 U/L Aspartate Amino Transf (AST/SGOT) 17 U/L Alanine Aminotransferase (ALT/SGPT) 19 U/L Total Bilirubin 0.3 MG/DL Sodium Level 135 MEQ/L Potassium Level 4.7 MEQ/L Chloride Level 95 MEQ/L Carbon Dioxide Level 35.0 MEQ/L Anion Gap 5 MEQ/L Estimat Glomerular Filtration Rate 31 ML/MIN Troponin I LESS THAN 0.02 NG/ML B-Type Natriuretic Peptide 68 PG/ML MDM Medical Decision Making Medical Screen Exam Complete: Yes Emergency Medical Condition: Yes Medical Record Reviewed: Yes Differential Diagnosis Differential includes syncope, dysrhythmia, CHF, Narrative Course Chest x-ray shows some elevation of the right hemidiaphragm which is present on previous x-rays. EKG shows a paced rhythm at a rate of 62. His BNP is 68. Sodium is 135 with potassium of 4.7. The urine is 40. Creatinine 2.2. This is similar to previous levels of creatinine. Patient is complaining of inability to void and has had some benefit from catheterization in the past I will ask the nurse to insert a Simmons catheter Leland Parada MD Jun 14, 2017 10:04
[2017-06-14 10:23] LABS: BASOPHIL # 0.1 TH/MM3 (0-0.2); BASOPHIL % 1.9 % (0.0-2.0); EOSINOPHIL # 0.3 TH/MM3 (0-0.4); EOSINOPHIL % 3.3 % (0.0-4.0); HEMATOCRIT 39.6 % (39.0-51.0); LYMPH % 21.2 % (9.0-44.0); LYMPHOCYTE # 1.7 TH/MM3 (1.0-4.8); MEAN CELL VOLUME 82.2 FL (80.0-100.0); MEAN CORPUSCULAR HEMOGLOBIN 26.8 PG (27.0-34.0); MEAN CORPUSCULAR HGB CONC 32.6 % (32.0-36.0); MONO % 10.6 % (0.0-8.0); PLATELET COUNT 230 TH/MM3 (150-450); RED BLOOD COUNT 4.82 MIL/MM3 (4.50-5.90); RED CELL DISTRIBUTION WIDTH 16.2 % (11.6-17.2); WHITE BLOOD COUNT 7.9 TH/MM3 (4.0-11.0)
[2017-06-14 10:25] LABS: HEMO FLAGS AUTO DIFF
[2017-06-14 10:26] LABS: CHLORIDE 95 MEQ/L (98-107); POTASSIUM 4.7 MEQ/L (3.5-5.1); SODIUM (NA) 135 MEQ/L (136-145)
[2017-06-14 10:30] LABS: ANION GAP 5 MEQ/L (5-15); BLOOD UREA NITROGEN 40 MG/DL (7-18); MAGNESIUM 2.6 MG/DL (1.5-2.5)
[2017-06-14 10:31] LABS: INTERNATIONAL NORMALIZED RATIO 0.9 RATIO; PROTHROMBIN TIME - PATIENT 10.1 SEC (9.8-11.6)
[2017-06-14 10:33] LABS: ALT (GPT) 19 U/L (12-78); AST (GOT) 17 U/L (15-37); GLOMERULAR FILTRATION RATE 31 ML/MIN (>89)
[2017-06-14 10:35] LABS: TOTAL BILIRUBIN ADULT 0.3 MG/DL (0.2-1.0)
[2017-06-14 10:36] LABS: ALKALINE PHOSPHATASE 79 U/L (45-117)
--- NOTE | 2017-06-14 10:45 | RADRPT ---
EXAM DATE/TIME: 06/14/2017 10:10 [facility] COMPARISON: CHEST SINGLE AP, April 18, 2017, 15:51. INDICATIONS : Short of breath MEDICAL HISTORY : Hypertension. Hypercholesterolemia. Myocardial infarction. Angina, CHF SURGICAL HISTORY : Coronary artery stent. CABG. Pacemaker. Cardiac catherization ENCOUNTER: Initial ACUITY: 1 day PAIN SCORE: 3/10 LOCATION: Bilateral chest FINDINGS: Mild right lung base atelectasis and/or infiltrate is seen. There is no appreciable pleural effusion for technique. Heart and mediastinum are unremarkable. Left subclavian transvenous pacer wires are p resent with tips in the right atrium and right ventricle. There is evidence for prior median sternoto my. CONCLUSION: Mild right lung base atelectasis and/or infiltrate is seen. Tessa Mina MD on June 14, 2017 at 10:43 Board Certified Radiologist. This report was verified electronically.
[2017-06-14 11:07] LABS: BASOPHILS 2 % (0-2); EOSINOPHILS 2 % (0-4); NEUTROPHIL # MANUAL DIFF 4.3 TH/MM3 (1.8-7.7); POLYS (SEG NEUTROPHILS) 54 % (16-70); WBC DIFF SAMPLE 100
[2017-06-14 11:08] LABS: PLATELET ESTIMATE SMEAR NORMAL (NORMAL); PLATELET MORPHOLOGY NORMAL (NORMAL); SCAN/DIFF FINAL DIFF MANUAL
[2017-06-14 11:28] LABS: BLOOD, URINE NEG (NEG); GLUCOSE,URINE NEG (NEG); KETONE, URINE NEG (NEG); NITRITE,URINE NEG (NEG)
[2017-06-14] MEDS ORDERED: RESP: IPRATROPIUM 0.5 MG/2.5 ML NEB NEB PRN (11:30)
[2017-06-14] MEDS ORDERED: NITROGLYCERIN 0.4 MG SL 25 TABS/BTL SL PRN (11:30)
[2017-06-14] MEDS ORDERED: ALPRAZolam 0.25 MG TAB PO PRN (11:30)
[2017-06-14] MEDS ORDERED: traMADol HCL 50 MG TAB PO PRN (11:30)
[2017-06-14 11:43] LABS: COMMENT (UR) CULT NOT INDICATED; CULTURE IF INDICATED CULT NOT INDICATED; METHOD OF COLLECTION VOIDED; SQUAMOUS EPITHELIAL CELL URINE 0-3 /hpf (0-5); URINE COLOR STRAW (YELLW/STRAW)
[2017-06-14] MEDS ORDERED: MAGNESIUM HYDROXIDE SUSP 30 ML CUP PO PRN (11:45)
[2017-06-14] MEDS ORDERED: SODIUM CHLORIDE 0.9% FLUSH 10 ML FLUSH IV FLUSH PRN (11:45)
[2017-06-14] MEDS ORDERED: LACTULOSE SYRUP 20 GM/30 ML CUP PO PRN (11:45)
[2017-06-14] MEDS ORDERED: ACETAMINOPHEN 325 MG TAB PO PRN (11:45)
[2017-06-14] MEDS ORDERED: BISACODYL 10 MG SUPP RECTAL PRN (11:45)
[2017-06-14] MEDS ORDERED: NALOXONE HCL 0.4 MG/ML AMP IV PRN (11:45)
[2017-06-14] MEDS ORDERED: SENNOSIDES 8.6 MG TAB PO PRN (11:45)
--- NOTE | 2017-06-14 11:45 | HHI.HP ---
HPI Service [facility] Hospitalists Primary Care Physician Dax Montana MD Admission Diagnosis [place]NCOPE Chief Complaint: passed out after eating bagal and has increased swelling to lower extremity Travel History International Travel<30 Days: No Contact w/Intl Traveler <30 Da: No Traveled to Known Affected Are: No History of Present Illness This 56-year-old male long cardiac history. He says he has a history of congestive failure. Recently he has been gaining weight and his ankles have been swollen. He's been feeling a bit short of breath. He has bilateral without 3 or 4 times. He has a history of ventricular tachycardia. He has a pacemaker defibrillator in place. He is having some mid chest and left-sided chest pain. He also has a history of renal problems. Recently his amiodarone has been increased because he was having bouts of ventricular tachycardia. He says he was eating a bagel this morning when he passed out. He woke up choking on the bagel but believes he has gotten it all out. ER contacted Dr. Brice office in his event monitor is set at a rate of 167,did not have any events recorded from this morning. He says he feels like he has to urinate but is unable to(he gets bouts like this periodically. In er did receive IV bumex with about 200cc urine obtained. Will admit and consult Dr. Brice and continue IV bumex for now and observe. Review of Systems Cardiovascular: COMPLAINS OF: Palpitations, Dyspnea on Exertion, Lower Extremity Edema Past Family Social History Past Medical History anxiety,cath times nine,V Tach CAD VA cholesterol anginia,CHF GERD Gout<pacer Past Surgical History cath times 8 bypass times 6 metronic AICD pacer,hernia,valve surgery tonsil Reported Medications Bumetanide 2 Mg Tab 2 Mg PO DAILY Bumetanide 1 Mg Tab 1 Mg PO HS Allopurinol 100 Mg Tab 300 Mg PO DAILY Alprazolam 0.25 Mg Tab 0.25 Mg PO TID PRN Amiodarone (Amiodarone HCl) 200 Mg Tab 200 Mg PO BID Aspirin EC (Aspirin) 81 Mg Tabdr 81 Mg PO DAILY Plavix (Clopidogrel Bisulfate) 75 Mg Tab 75 Mg PO DAILY Nitroglycerin SL (Nitroglycerin) 0.4 Mg Subl 0.4 Mg SL DIRECTED PRN ONE TABLET UNDER THE TONGUE NEEDED FOR CHEST PAIN, MAY REPEAT EVERY FIVE MINUTES FOR A TOTAL OF 3 DOSES OR CALL 911 IF NO RELIEF K-Tab (Potassium Chloride) 20 Meq Tab 20 Meq PO TID Isosorbide Mononitrate ER (Isosorbide Mononitrate) 30 Mg Adolph 30 Mg PO DAILY Metoprolol Tartrate 25 Mg Tab 25 Mg PO BID Lyrica (Pregabalin) 50 Mg Cap 50 Mg PO TID Ranitidine (Ranitidine HCl) 300 Mg Tab 150 Mg PO DAILY Tamsulosin (Tamsulosin HCl) 0.4 Mg Cap 0.4 Mg PO DAILY Tramadol (Tramadol HCl) 50 Mg Tab 50 Mg PO Q4H PRN Ipratropium Neb (Ipratropium [place]) 0.5 Mg/2.5 Ml Amp 0.5 Mg NEB TID NEB PRN Proair Respiclick Inh (Albuterol Sulfate) 90 Mcg/Act Aerp 2 Puff INH Q6H PRN Allergies: Coded Allergies: Sulfa (Sulfonamide Antibiotics) (Unverified Allergy, Severe, HIVES, 06/14/17 ) acetaminophen (Unverified Allergy, Severe, PT DENIES, 06/14/17) oxycodone (Unverified Allergy, Severe, RASH, 06/14/17) lorazepam (Unverified Adverse Reaction, Severe, 06/14/17) MAKES PT "CRAZY" Social History current NS,ND Physical Exam Vital Signs Vital Signs Date Time Temp Pulse Resp B/P (MAP) Pulse Ox O2 Delivery O2 Flow Rate FiO2 06/14/17 11:02 60 18 119/80 (93) 97 Nasal Cannula 3.00 06/14/17 10:32 60 18 97 Nasal Cannula 3.00 06/14/17 10:10 18 97 Room Air 3.00 06/14/17 10:10 18 97 Nasal Cannula 3.00 06/14/17 10:10 97 Nasal Cannula 3.00 06/14/17 10:05 98.0 60 16 127/82 (97) 97 Physical Exam GENERAL: This is a well-nourished, well-developed patient, in no apparent distress. SKIN: No rashes, ecchymoses or lesions. Cool and dry. HEAD: Atraumatic. Normocephalic. No temporal or scalp tenderness. EYES: Pupils equal round and reactive. Extraocular motions intact. No scleral icterus. No injection or drainage. ENT: Nose without bleeding, purulent drainage or septal hematoma. Throat without erythema, tonsillar hypertrophy or exudate. Uvula midline. Airway patent. NECK: Trachea midline. No JVD or lymphadenopathy. Supple, nontender, no meningeal signs. CARDIOVASCULAR: Regular rate and rhythm without murmurs, gallops, or rubs. RESPIRATORY: Clear to auscultation. Breath sounds equal bilaterally. No wheezes , rales, or rhonchi. GASTROINTESTINAL: Abdomen soft, non-tender, nondistended. No hepato-splenomegaly , or palpable masses. No guarding. MUSCULOSKELETAL: Extremities without clubbing, cyanosis lower extremity bilateral edema plus2. No joint tenderness, effusion, or edema noted. No calf tenderness. Negative Homans sign bilaterally. NEUROLOGICAL: Awake and alert. Cranial nerves II through XII intact. Motor and sensory grossly within normal limits. Five out of 5 muscle strength in all muscle groups. Normal speech. Laboratory Laboratory Tests Test 06/14/17 10:05 06/14/17 11:15 White Blood Count 7.9 Red Blood Count 4.82 Hemoglobin 12.9 Hematocrit 39.6 Mean Corpuscular Volume 82.2 Mean Corpuscular Hemoglobin 26.8 Mean Corpuscular Hemoglobin Concent 32.6 Red Cell Distribution Width 16.2 Platelet Count 230 Mean Platelet Volume 8.6 Neutrophils (%) (Auto) 63.0 Lymphocytes (%) (Auto) 21.2 Monocytes (%) (Auto) 10.6 Eosinophils (%) (Auto) 3.3 Basophils (%) (Auto) 1.9 Neutrophils # (Auto) 5.0 Lymphocytes # (Auto) 1.7 Monocytes # (Auto) 0.8 Eosinophils # (Auto) 0.3 Basophils # (Auto) 0.1 CBC Comment AUTO DIFF Differential Total Cells Counted 100 Neutrophils % (Manual) 54 Lymphocytes % 29 Monocytes % 13 Eosinophils % 2 Basophils % 2 Neutrophils # (Manual) 4.3 Differential Comment FINAL DIFF MANUAL Platelet Estimate NORMAL Platelet Morphology Comment NORMAL Prothrombin Time 10.1 Prothromb Time International Ratio 0.9 Activated Partial Thromboplast Time 21.0 Blood Urea Nitrogen 40 Creatinine 2.20 Random Glucose 93 Total Protein 7.3 Albumin 3.5 Calcium Level 8.5 Magnesium Level 2.6 Alkaline Phosphatase 79 Aspartate Amino Transf (AST/SGOT) 17 Alanine Aminotransferase (ALT/SGPT) 19 Total Bilirubin 0.3 Sodium Level 135 Potassium Level 4.7 Chloride Level 95 Carbon Dioxide Level 35.0 Anion Gap 5 Estimat Glomerular Filtration Rate 31 Troponin I LESS THAN 0.02 B-Type Natriuretic Peptide 68 Result Diagram: 06/14/17 1005 06/14/17 1005 Imaging Last 24 hours Impressions Chest X-Ray 06/14/17 1000 Signed Impressions: Service Date/Time: Wednesday, June 14, 2017 10:10 - CONCLUSION: Mild right lung base atelectasis and/or infiltrate is seen. Tessa Mina MD Course in er received IV bumex Caprini VTE Risk Assessment Caprini VTE Risk Assessment: Mod/High Risk (score >= 2) Caprini Risk Assessment Model Point Value = 1 Point Value = 2 Point Value = 3 Point Value = 5 Age 41-60 Minor surgery BMI > 25 kg/m2 Swollen legs Varicose veins or History of unexplained or recurrent spontaneous Oral contraceptives or hormone replacement Sepsis (< 1 month) Serious lung disease, including pneumonia (< 1 month) Abnormal pulmonary function Acute myocardial infarction Congestive heart failure (< 1 month) History of inflammatory bowel disease Medical patient at bed rest Age 61-74 Arthroscopic surgery Major open surgery (> 45 min) Laparoscopic surgery (> 45 min) Malignancy Confined to bed (> 72 hours) Immobilizing plaster cast Central venous access Age >= 75 History of VTE Family history of VTE Factor V Leiden Prothrombin [id number] Lupus anticoagulant Anticardiolipin antibodies Elevated serum homocysteine Heparin-induced thrombocytopenia Other congenital or acquired thrombophilia Stroke (< 1 month) Elective arthroplasty Hip, pelvis, or leg fracture Acute spinal cord injury (< 1 month) Prophylaxis Regimen Total Risk Factor Score Risk Level Prophylaxis Regimen 0-1 Low Early ambulation 2 Moderate Order ONE of the following: *Sequential Compression Device (SCD) *Heparin 5000 units SQ BID 3-4 Higher Order ONE of the following medications: *Heparin 5000 units SQ TID *Enoxaparin/Lovenox 40 mg SQ daily (WT < 150 kg, CrCl > 30 mL/min) *Enoxaparin/Lovenox 30 mg SQ daily (WT < 150 kg, CrCl > 10-29 mL/min) *Enoxaparin/Lovenox 30 mg SQ BID (WT < 150 kg, CrCl > 30 mL/min) AND/OR *Sequential Compression Device (SCD) 5 or more Highest Order ONE of the following medications: *Heparin 5000 units SQ TID (Preferred with Epidurals) *Enoxaparin/Lovenox 40 mg SQ daily (WT < 150 kg, CrCl > 30 mL/min) *Enoxaparin/Lovenox 30 mg SQ daily (WT < 150 kg, CrCl > 10-29 mL/min) *Enoxaparin/Lovenox 30 mg SQ BID (WT < 150 kg, CrCl > 30 mL/min) AND *Sequential Compression Device (SCD) Assessment and Plan Problem List: (1) Syncope ICD Codes: R55 - Syncope and collapse Plan: may have been vasovagal was eating bagel and then had syncopal episode will observe consult cardiology (2) CHF (congestive heart failure) ICD Codes: I50.9 - Congestive heart failure Status: Chronic Plan: consult cardiology start IV bumex for now did have some success in er , patient recently had his amiodarone increased by cardiology (3) VT (ventricular tachycardia) ICD Codes: I47.2 - Ventricular tachycardia Status: Acute (4) CKD (chronic kidney disease) stage 3, GFR 30-59 ml/min ICD Codes: N18.3 - Chronic kidney disease, stage 3 (moderate) Status: Chronic Plan: levels are more or less at his baseline cr in 2 range Assessment and Plan further plan as per monitor and diuresis response Code Status full Discussed Condition With patient Izaiah Read MD Jun 14, 2017 11:45
[2017-06-14] MEDS ORDERED: ALBUTEROL SULFATE 90 MCG/ACT HFA 8 GM INHALER INH PRN (13:00)
[2017-06-14] MEDS: POTASSIUM CHLORIDE 20 MEQ CONTROLLED RELEASE TAB PO SCH ×2 (13:22→17:19)
[2017-06-14] MEDS: PREGABALIN 25 MG CAP PO SCH ×2 (13:22→17:19)
--- NOTE | 2017-06-14 13:41 | MA ---
cc: RUSSELL CASTRO MD DATE: 06/14/2017. HISTORY OF PRESENT ILLNESS: This is a 56-year-old gentleman who was admitted to the hospital for syncope with a history of coronary artery disease as well as ventricular tachycardia for which he has an AICD in place. In the past, he has had increase in the frequency of ventricular tachycardia and amiodarone was increased to 200 milligrams twice a day. Stress testing revealed no evidence for ischemia and since increasing his amiodarone, he has been free from episodes of ventricular tachycardia per his monitoring over the last two months. This morning, he awoke and felt that he had gained some weight, was unable to urinate. He notes that he got very shaky for unknown reasons. He began eating a bagel and then woke up and apparently either had a syncopal episode or fell asleep and woke up with a bagel on his chest. He became alarmed and came to the emergency department. His laboratory exam at the emergency department demonstrates a creatinine which is mildly increased to 2.2. Electrolytes are normal. His BNP is 68. Chest x-ray reveals evidence for heart failure. A scan of his AICD reveals no event although his monitor rate is set at 167. No chest pain or shortness of breath has been present. MEDICATIONS AT HOME: His medications at home have included: 1. Plavix 75 milligrams daily. 2. Aspirin 81 daily. 3. Alprazolam 0.25 milligrams three times a day as needed. 4. Allopurinol 300 milligrams daily. 5. Bumex 2 milligrams daily. 6. Potassium 20 milliequivalents three times daily. 7. Isosorbide mononitrate 30 milligrams once a day. 8. Metoprolol 25 milligrams twice daily. 9. Tamsulosin 0.4 daily. 10. 150 milligrams daily. 11. Lyrica 50 milligrams three times a day. 12. Tramadol 50 milligrams q. 4 PRN pain. SOCIAL HISTORY: The patient does not smoke, drink or use recreational drugs. ALLERGIES: HE DOES HAVE MULTIPLE ALLERGIES INCLUDIN. SULFONAMIDES. 2. ACETAMINOPHEN. 3. OXYCODONE. 4. LORAZEPAM, ALTHOUGH THAT IS AN ADVERSE REACTION AND HE BECOMES VERY ANXIOUS ON LORAZEPAM. PHYSICAL EXAMINATION: GENERAL: On physical exam, he is awake and alert and actually sleeping and when seen he is easily aroused. VITAL SIGNS: Blood pressure 120/70, pulse of 60 and regular. NECK: There is no neck vein distention. No carotid bruits are present. LUNGS: Clear. CARDIOVASCULAR: Regular rate and rhythm. No significant murmur present. No gallop is noted. ABDOMEN: Abdomen is soft. No tenderness or organomegaly. EXTREMITIES: No edema. ASSESSMENT: The patient has had a syncopal episode this morning of uncertain etiology which may be related to anxiety; however, cannot rule out the possibility of ventricular tachycardia without a shock and lower rates. RECOMMENDATIONS/PLAN: 1. Will ask the pacemaker rep to re-set his monitor zone at 140. 2. I feel that he is maybe somewhat dehydrated, which may account for his inability to pee very well and he has been given some IV Bumex, which I will hold at this point in time due to the absence of any demonstrable heart failure and his mild renal dysfunction. MD JAMAAL Owens/KRISHAN /12:28 PM /1:28 PM
[2017-06-14] MEDS ORDERED: BUMETANIDE INJ 1 MG/4 ML VIAL IV PUSH SCH (18:00)
[2017-06-14] MEDS: METOPROLOL TARTRATE 25 MG TAB PO SCH (20:44)
[2017-06-14] MEDS: DOCUSATE SODIUM 50 MG/SENNA 8.6 MG TAB PO SCH (20:44)
[2017-06-14] MEDS: AMIODARONE 200 MG TAB PO SCH (20:45)
[2017-06-14] MEDS: SODIUM CHLORIDE 0.9% FLUSH 10 ML FLUSH IV FLUSH SCH (20:47)
[2017-06-14] MEDS: AMOXICILLIN (TRIHYDRATE) 500 MG CAP PO SCH (23:10)
[2017-06-15] VITALS (10 sets, daily range): BP systolic 99–118; BP diastolic 68–76; PULSE 59–88; RESP 16–18; TEMP 97–98; O2SAT 93–98
[2017-06-15] MEDS: AMOXICILLIN (TRIHYDRATE) 500 MG CAP PO SCH ×3 (06:34→22:21)
[2017-06-15] MEDS: ISOSORBIDE MONONITRATE 30 MG TAB PO SCH (06:35)
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
[2017-06-15 07:46] LABS: BICARBONATE 35.9 MEQ/L (21.0-32.0)
[2017-06-15] MEDS ORDERED: methylPREDNISolone SOD SUCC 40 MG/1 ML VIAL IV PUSH ONE (08:00)
[2017-06-15] MEDS: AMIODARONE 200 MG TAB PO SCH ×2 (09:32→22:21)
[2017-06-15] MEDS: ASPIRIN EC 81 MG TABEC PO SCH (09:32)
[2017-06-15] MEDS: FAMOTIDINE 20 MG TAB PO SCH (09:32)
[2017-06-15] MEDS: PREGABALIN 25 MG CAP PO SCH ×3 (09:32→18:08)
[2017-06-15] MEDS: ALLOPURINOL 300 MG TAB PO SCH (09:32)
[2017-06-15] MEDS: METOPROLOL TARTRATE 25 MG TAB PO SCH ×2 (09:32→22:21)
[2017-06-15] MEDS: DOCUSATE SODIUM 50 MG/SENNA 8.6 MG TAB PO SCH ×2 (09:32→22:21)
[2017-06-15] MEDS: CLOPIDOGREL 75 MG TAB PO SCH (09:32)
[2017-06-15] MEDS: BUMETANIDE 1 MG TAB PO SCH (09:33)
[2017-06-15] MEDS: POTASSIUM CHLORIDE 20 MEQ CONTROLLED RELEASE TAB PO SCH ×3 (09:33→18:08)
[2017-06-15] MEDS: TAMSULOSIN HCL 0.4 MG CAP PO SCH (09:33)
[2017-06-15] MEDS: SODIUM CHLORIDE 0.9% FLUSH 10 ML FLUSH IV FLUSH SCH ×2 (09:34→22:21)
[2017-06-15] MEDS ORDERED: PNEUMOCOCCAL POLYVALENT INJ 25 MCG/0.5 ML SYR IM ONE (10:00)
--- NOTE | 2017-06-15 13:26 | PD.CARD.PN ---
Subjective Subjective Remarks Pt feels well, no sx, no VT on tele Objective Medications Administered Medications Medications (Trade) Dose Ordered Sig/Luis Route PRN Reason Start Time Stop Time Status Last Admin Dose Admin Allopurinol (Zyloprim) 300 mg DAILY PO 06/15/17 09:00 06/15/17 09:32 Amiodarone HCl (Cordarone) 200 mg BID PO 06/14/17 21:00 06/15/17 09:32 Aspirin (Ecotrin Ec) 81 mg DAILY PO 06/15/17 09:00 06/15/17 09:32 Clopidogrel Bisulfate (Plavix) 75 mg DAILY PO 06/15/17 09:00 06/15/17 09:32 Ipratropium [place] (Atrovent Neb) 0.5 mg TID NEB PRN NEB SOB/WHEEZING 06/14/17 11:30 06/14/17 20:11 Isosorbide Mononitrate (Imdur) 30 mg DAILY@0700 PO 06/15/17 07:00 06/15/17 06:35 Metoprolol Tartrate (Lopressor) 25 mg BID PO 06/14/17 21:00 06/15/17 09:32 Potassium Chloride (KCl) 20 meq TID PO 06/14/17 13:00 06/15/17 12:26 Pregabalin (Lyrica) 50 mg TID PO 06/14/17 13:00 06/15/17 12:25 Tamsulosin HCl (Flomax) 0.4 mg DAILY PO 06/15/17 09:00 06/15/17 09:33 Tramadol HCl (Ultram) 50 mg Q4H PRN PO PAIN SCALE 1-10 06/14/17 11:30 06/14/17 20:44 Famotidine (Pepcid) 20 mg DAILY PO 06/15/17 09:00 06/15/17 09:32 Sodium Chloride (NS Flush) 2 ml BID IV FLUSH 06/14/17 21:00 06/15/17 09:34 Senna/Docusate Sodium (Madelaine-Colace) 1 tab BID PO 06/14/17 21:00 06/15/17 09:32 Bumetanide (Bumetanide) 2 mg DAILY PO 06/15/17 09:00 06/15/17 09:33 Amoxicillin (Trimox) 500 mg Q8H PO 06/14/17 22:00 06/15/17 06:34 Vital Signs / I&O Vital Signs Date Time Temp Pulse Resp B/P (MAP) Pulse Ox O2 Delivery O2 Flow Rate FiO2 06/15/17 10:32 18 06/15/17 09:30 68 06/15/17 08:30 88 06/15/17 08:00 97.0 59 18 107/68 (81) 98 06/15/17 08:00 95 Nasal Cannula 2.00 06/15/17 04:00 97.5 61 16 107/74 (85) 96 06/15/17 00:00 97.4 64 17 100/73 (82) 93 06/14/17 20:15 93 Nasal Cannula 2.00 06/14/17 20:00 97.7 81 16 109/79 (89) 96 06/14/17 20:00 71 06/14/17 16:00 97.8 64 18 107/79 (88) 97 I/O 06/14/17 06/14/17 06/14/17 06/15/17 06/15/17 06/15/17 06:59 14:59 22:59 06:59 14:59 22:59 Intake Total 480 ml 480 ml Output Total 2700 ml 800 ml 800 ml Balance -2220 ml -320 ml -800 ml Intake Oral 480 ml 480 ml Output Urine Total 2700 ml 800 ml 800 ml # Bowel Movements 1 0 Physical Exam GENERAL: This is a well-nourished, well-developed patient, in no apparent distress. CARDIOVASCULAR: Regular rate and rhythm without murmurs, gallops, or rubs. RESPIRATORY: Clear to auscultation. Breath sounds equal bilaterally. No wheezes , rales, or rhonchi. GASTROINTESTINAL: Abdomen soft, non-tender, nondistended. Normal active bowel sounds MUSCULOSKELETAL: Extremities without clubbing, cyanosis, or edema. NEURO: Alert & Oriented x4 to person, place, time, situation. Moves all ext x4 Laboratory Laboratory Tests Test 06/15/17 07:19 Blood Urea Nitrogen 33 MG/DL Creatinine 1.70 MG/DL Random Glucose 86 MG/DL Calcium Level 8.6 MG/DL Sodium Level 139 MEQ/L Potassium Level 5.0 MEQ/L Chloride Level 100 MEQ/L Carbon Dioxide Level 35.9 MEQ/L Anion Gap 3 MEQ/L Estimat Glomerular Filtration Rate 42 ML/MIN Imaging Last Impressions Chest X-Ray 06/14/17 1000 Signed Impressions: Service Date/Time: Wednesday, June 14, 2017 10:10 - CONCLUSION: Mild right lung base atelectasis and/or infiltrate is seen. Tessa Mina MD Assessment and Plan Problem List: (1) Syncope ICD Codes: R55 - Syncope and collapse Status: Acute Plan: No arrhythmia seen, VT monitoring zone lowered on ICD to look for any slower VTs; he is asymptomatic and is ok to d/c home. Tremayne Phillips MD Jun 15, 2017 13:26
--- NOTE | 2017-06-15 13:32 | EKG ---
Date Performed: 06/14/2017 Time Performed: 09:52:06 PTAGE: 56 years EKG: ELECTRONIC ATRIAL PACEMAKER MARKED LEFT AXIS DEVIATION LEFT BUNDLE BRANCH BLOCK Compared to prior tracing no significant change ABNORMAL ECG PREVIOUS TRACING : 04/18/2017 15.16 DOCTOR: Tremayne Phillips Interpretating Date/Time 06/15/2017 13:30:53
--- NOTE | 2017-06-15 14:05 | RADRPT ---
EXAM DATE/TIME: 06/15/2017 08:11 [facility] COMPARISON: No previous studies available for comparison. INDICATIONS : Low back pain. MEDICAL HISTORY : Chronic obstructive pulmonary disease. Congestive heart failure. SURGICAL HISTORY : Pacemaker. CABG. ENCOUNTER: Subsequent ACUITY: 2 days PAIN SCORE: 7/10 LOCATION: Bilateral low back FINDINGS: 3 views of the lumbar spine. Bone alignment within normal limits. No evidence of fracture. Small end plate osteophytes at multiple levels of the lower lumbar spine and mild bony facet hypertrophy at L4- 5 and L5-S1. CONCLUSION: Mild bony degenerative findings of the lumbar spine. No evidence of fracture. Jj Mcgowan MD on June 15, 2017 at 14:02 Board Certified Radiologist. This report was verified electronically.
[2017-06-16 01:42] VITALS: BP 104/61; PULSE 65; RESP 16; TEMP 97.5; O2SAT 95
[2017-06-16 05:39] VITALS: BP 121/86; PULSE 60; RESP 16; TEMP 97.6; O2SAT 96
[2017-06-16] MEDS: ISOSORBIDE MONONITRATE 30 MG TAB PO SCH (05:52)
[2017-06-16] MEDS: AMOXICILLIN (TRIHYDRATE) 500 MG CAP PO SCH (05:52)
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
--- NOTE | 2017-06-16 07:26 | HHI.DS ---
Discharge Summary Admission Date Jun 14, 2017 at 11:25 Discharge Date: Jun 16, 2017 Admitting Diagnosis SYNCOPE (1) Syncope Diagnosis: Principal ICD Codes: R55 - Syncope and collapse Status: Acute (2) CHF (congestive heart failure) Diagnosis: Secondary ICD Codes: I50.9 - Congestive heart failure Status: Chronic (3) VT (ventricular tachycardia) Diagnosis: Secondary ICD Codes: I47.2 - Ventricular tachycardia Status: Acute (4) CKD (chronic kidney disease) stage 3, GFR 30-59 ml/min Diagnosis: Secondary ICD Codes: N18.3 - Chronic kidney disease, stage 3 (moderate) Status: Chronic Consultants Dr Hernan Brice, Cardiology Brief History This 56-year-old male long cardiac history. He says he has a history of congestive failure. Recently he has been gaining weight and his ankles have been swollen. He's been feeling a bit short of breath. He has bilateral without 3 or 4 times. He has a history of ventricular tachycardia. He has a pacemaker defibrillator in place. He is having some mid chest and left-sided chest pain. He also has a history of renal problems. Recently his amiodarone has been increased because he was having bouts of ventricular tachycardia. He says he was eating a bagel this morning when he passed out. He woke up choking on the bagel but believes he has gotten it all out. ER contacted Dr. Brice office in his event monitor is set at a rate of 167,did not have any events recorded from this morning. He says he feels like he has to urinate but is unable to(he gets bouts like this periodically. In er did receive IV bumex with about 200cc urine obtained. Will admit and consult Dr. Brice and continue IV bumex for now and observe. CBC/BMP: 06/14/17 1005 06/15/17 0719 Significant Findings Laboratory Tests Test 06/14/17 10:05 06/14/17 11:15 06/15/17 07:19 Hemoglobin 12.9 GM/DL (13.0-17.0) Mean Corpuscular Hemoglobin 26.8 PG (27.0-34.0) Monocytes (%) (Auto) 10.6 % (0.0-8.0) Monocytes % 13 % (0-8) Activated Partial Thromboplast Time 21.0 SEC (24.3-30.1) Blood Urea Nitrogen 40 MG/DL (7-18) 33 MG/DL (7-18) Creatinine 2.20 MG/DL (0.60-1.30) 1.70 MG/DL (0.60-1.30) Magnesium Level 2.6 MG/DL (1.5-2.5) Sodium Level 135 MEQ/L (136-145) Chloride Level 95 MEQ/L (98-107) Carbon Dioxide Level 35.0 MEQ/L (21.0-32.0) 35.9 MEQ/L (21.0-32.0) Estimat Glomerular Filtration Rate 31 ML/MIN (>89) 42 ML/MIN (>89) Troponin I LESS THAN 0.02 NG/ML Anion Gap 3 MEQ/L (5-15) Hospital Course Patient diuresed well and lost approximately 14 pounds during hospital stay. It is believe most of this was associated with acute urinary retention which may be associated with his outpatient antihistamine use. He has been instructed to avoid are significantly decreased antihistamine use. This urinary retention seems to be a recurrent problem and he has seen urology about this in the past. He is instructed to follow-up with urology if this recurs. He does have BPH and is currently on Flomax. He reports relatively good urinary stream except when he is in urinary retention. He was seen by cardiology during the hospital course and his AICD device was reprogrammed for an upper limit of 140 bpm. He had no obvious V. tach runs here. He was feeling quite well on the day of discharge and will be discharged home. Discharge was discussed with his who is a nurse and will be with him at home. Pt Condition on Discharge: Good Discharge Disposition: Discharge Home Discharge Instructions DIET: Follow Instructions for: Heart Healthy Diet Activities you can perform: Regular-No Restrictions Follow up Referrals: Cardiology PCP Follow-up Continued Medications: Albuterol Powder Inh (Proair Respiclick Inh) 90 Mcg/Act Aerp 2 PUFF INH Q6H PRN for SHORTNESS OF BREATH, #1 INHALER 0 Refills Allopurinol (Allopurinol) 100 Mg Tab 300 MG PO DAILY for Gout, #30 TAB 0 Refills Alprazolam (Alprazolam) 0.25 Mg Tab 0.25 MG PO TID PRN for ANXIETY, TAB 0 Refills Amiodarone (Amiodarone) 200 Mg Tab 200 MG PO BID for Regulate Heart Beat, #30 TAB [address] (Aspirin EC) 81 Mg Tabdr 81 MG PO DAILY, TAB 0 Refills Bumetanide (Bumetanide) 2 Mg Tab 2 MG PO DAILY, TAB 0 Refills Clopidogrel (Plavix) 75 Mg Tab 75 MG PO DAILY for Blood Clot Prevention, #30 TAB 0 Refills Ipratropium Neb (Ipratropium Neb) 0.5 Mg/2.5 Ml Amp 0.5 MG NEB TID NEB PRN for SOB/WHEEZING, NEBULE 0 Refills Isosorbide Mononitrate ER (Isosorbide Mononitrate ER) 30 Mg Adolph 30 MG PO DAILY for Prevent Chest Pain, #30 TAB 0 Refills Metoprolol Tartrate (Metoprolol Tartrate) 25 Mg Tab 25 MG PO BID, #60 TAB 0 Refills Nitroglycerin SL (Nitroglycerin SL) 0.4 Mg Subl 0.4 MG SL DIRECTED PRN for CHEST PAIN, #100 TAB.SL 0 Refills ONE TABLET UNDER THE TONGUE NEEDED FOR CHEST PAIN, MAY REPEAT EVERY FIVE MINUTES FOR A TOTAL OF 3 DOSES OR CALL 911 IF NO RELIEF Potassium Chloride ER (K-Tab) 20 Meq Tab 20 MEQ PO TID for Electrolyte Replacement, #60 TAB 0 Refills Pregabalin (Lyrica) 50 Mg Cap 50 MG PO TID, #90 CAP 0 Refills Ranitidine (Ranitidine) 300 Mg Tab 150 MG PO DAILY for Heartburn Management, #30 TAB 0 Refills Tamsulosin (Tamsulosin) 0.4 Mg Cap 0.4 MG PO DAILY for Manage Prostate Problems, #30 CAP 0 Refills Tramadol (Tramadol) 50 Mg Tab 50 MG PO Q4H PRN for PAIN SCALE 1-10, TAB 0 Refills Discontinued Medications: Bumetanide (Bumetanide) 1 Mg Tab 1 MG PO HS, #30 TAB 0 Refills Additional Information Avoid or significantly limit antihistamine use. Contact your urologist if urinary retention continues to be an issue. Curtis Langford MD PhD Jun 16, 2017 07:26
[2017-06-16] MEDS ORDERED: methylPREDNISolone SOD SUCC 40 MG/1 ML VIAL IV PUSH ONE (07:45)
[2017-06-16] MEDS ORDERED: ENOXAPARIN SODIUM 30 MG/0.3 ML SYRINGE SQ ONE (08:00)
[2017-06-16] MEDS: TAMSULOSIN HCL 0.4 MG CAP PO SCH (09:06)
[2017-06-16] MEDS: PREGABALIN 25 MG CAP PO SCH (09:06)
[2017-06-16] MEDS: POTASSIUM CHLORIDE 20 MEQ CONTROLLED RELEASE TAB PO SCH (09:07)
[2017-06-16] MEDS: DOCUSATE SODIUM 50 MG/SENNA 8.6 MG TAB PO SCH (09:07)
[2017-06-16] MEDS: AMIODARONE 200 MG TAB PO SCH (09:08)
[2017-06-16] MEDS: CLOPIDOGREL 75 MG TAB PO SCH (09:08)
[2017-06-16] MEDS: METOPROLOL TARTRATE 25 MG TAB PO SCH (09:08)
[2017-06-16] MEDS: FAMOTIDINE 20 MG TAB PO SCH (09:08)
[2017-06-16] MEDS: ALLOPURINOL 300 MG TAB PO SCH (09:08)
[2017-06-16] MEDS: BUMETANIDE 1 MG TAB PO SCH (09:09)
[2017-06-16] MEDS: ASPIRIN EC 81 MG TABEC PO SCH (09:09)
[2017-06-16 09:10] VITALS: BP 138/92; PULSE 66; RESP 16; TEMP 97.8; O2SAT 94
[2017-06-16] MEDS: SODIUM CHLORIDE 0.9% FLUSH 10 ML FLUSH IV FLUSH SCH (09:15)
== END 2017-06-16 11:03 | disposition home or self-care (01) ==
LOC: PHED 09:42 → PHEDA 11:25 → PH3A 12:33
PROVIDERS: ADMIT Internal Medicine; ATTEND Internal Medicine
DX: R55 Syncope and collapse (principal); I13.0 Hypertensive heart and chronic kidney disease with heart failure and stage 1 through stage 4 chronic kidney disease, or unspecified chronic kidney disease; I50.9 Heart failure, unspecified; N18.3 Chronic kidney disease, stage 3 (moderate); I47.2 Ventricular tachycardia; I25.10 Atherosclerotic heart disease of native coronary artery without angina pectoris; I25.2 Old myocardial infarction; J44.9 Chronic obstructive pulmonary disease, unspecified; G20 Parkinson's disease; E11.22 Type 2 diabetes mellitus with diabetic chronic kidney disease; E78.00 Pure hypercholesterolemia, unspecified; N40.1 Benign prostatic hyperplasia with lower urinary tract symptoms; R33.8 Other retention of urine; K21.9 Gastro-esophageal reflux disease without esophagitis; Z95.1 Presence of aortocoronary bypass graft; Z95.5 Presence of coronary angioplasty implant and graft; Z95.810 Presence of automatic (implantable) cardiac defibrillator; Z99.81 Dependence on supplemental oxygen
CPT/HCPCS: 51702; 71010; 72100; 80048; 80053; 81001; 83735; 83880; 84484; 85007; 85027; 85610; 85730; 93005; 94664; 96372; 96374; 96376; 99285; G0378; J1650; J2920; J7644

== ENCOUNTER 2017-07-13 07:14 | Observation (INO) | payer OTHER ==
[~2017-07-13] VITALS: Ht 175.3 cm; Wt 108.5 kg
[2017-07-13] VITALS (11 sets, daily range): BP systolic 115–140; BP diastolic 58–87; PULSE 59–67; RESP 18–20; TEMP 97.5–98.2; O2SAT 92–96
[~2017-07-13 07:14] MED LIST changes: -ASPI81TA11 PO; +ASPI81TA23 PO; -BUME1TAB PO
--- NOTE | 2017-07-13 07:27 | PD ---
HPI Chief Complaint: cp Time Seen by Provider: 07:18 Travel History International Travel<30 days: No Contact w/Intl Traveler<30days: No Traveled to known affect area: No History of Present Illness HPI patient c/o substernal cp, 04/15, nonrad, pressure like, onset about 4am today, still present after he took his own ntg...ems gave asa 162 and ntg spray x 2, improved symptoms pcp: trista cardio: gaurav castillo pmhx: cad with 4-5 stents, pacemaker defib, htn, ckd pshx:cabbg, appy PFSH Past Medical History Hx Anticoagulant Therapy: Yes Arthritis: Yes Asthma: No Autoimmune Disease: No Blood Disorders: No Anxiety: Yes Depression: No Heart Rhythm Problems: No Cancer: No Cardiac Catheterization: Yes (X9) Cardiovascular Problems: Yes (VTACH, CAD) High Cholesterol: Yes Chemotherapy: No Chest Pain: Yes Congestive Heart Failure: Yes COPD: No Cerebrovascular Accident: No Coronary Artery Disease: Yes Diabetes: Yes Diminished Hearing: No Endocrine: Yes Gastrointestinal Disorders: Yes (GERD) GERD: Yes Gout: Yes Genitourinary: Yes (CHRONIC KIDNEY DISEASE) Headaches: No Hepatitis: No Hiatal Hernia: No Heparin Induced Thrombocytopen: No Hypertension: Yes Immune Disorder: No Inguinal Hernia: Yes Implanted Vascular Access Dvce: Yes Insomnia: Yes Kidney Stones: Yes Musculoskeletal: No Neurologic: No Parkinson's Disease: Yes Psychiatric: Yes Reproductive: No Respiratory: Yes (COPD/02 DEPENDANT) Migraines: No Myocardial Infarction: Yes Radiation Therapy: No Renal Failure: No Seizures: No Shingles: Yes Sickle Cell Disease: No Sleep Apnea: No Thyroid Disease: No Triglycerides - High: Yes Ulcer: No Past Surgical History Abdominal Surgery: Yes AICD: Yes Appendectomy: Yes Arteriovenous Shunt: No Body Medical Devices: pacer aicd Cardiac Surgery: Yes (pacer aicd, ABLATION) Cholecystectomy: Yes Coronary Artery Bypass Graft: Yes (X6) Coronary Stent: Yes (X1) Ear Surgery: No Endocrine Surgery: No Eye Surgery: No Genitourinary Surgery: No Gynecologic Surgery: No Insulin Pump: No Joint Replacement: No Neurologic Surgery: No Oral Surgery: No Pacemaker: Yes (medtronic) Thoracic Surgery: No Tonsillectomy: Yes Valve Replacement: Yes Other Surgery: Yes (R INGUNIAL HERNIA REPAIR) Family History Family Hypercholesterolemia: Yes Social History Alcohol Use: No Tobacco Use: No (FORMER) Substance Use: No Allergies-Medications (Allergen,Severity, Reaction): Coded Allergies: Sulfa (Sulfonamide Antibiotics) (Verified Allergy, Severe, HIVES, 07/13/17) oxycodone (Verified Allergy, Severe, RASH, 07/13/17) lorazepam (Verified Adverse Reaction, Severe, Confusion, 07/13/17) MAKES PT "CRAZY" Reported Meds & Prescriptions Reported Meds & Active Scripts Active Reported Bumetanide 2 Mg Tab 2 Mg PO DAILY Allopurinol 100 Mg Tab 300 Mg PO DAILY Alprazolam 0.25 Mg Tab 0.25 Mg PO TID PRN Amiodarone (Amiodarone HCl) 200 Mg Tab 200 Mg PO BID Aspirin EC (Aspirin) 81 Mg Tabdr 81 Mg PO DAILY Plavix (Clopidogrel Bisulfate) 75 Mg Tab 75 Mg PO DAILY Nitroglycerin SL (Nitroglycerin) 0.4 Mg Subl 0.4 Mg SL DIRECTED PRN ONE TABLET UNDER THE TONGUE NEEDED FOR CHEST PAIN, MAY REPEAT EVERY FIVE MINUTES FOR A TOTAL OF 3 DOSES OR CALL 911 IF NO RELIEF K-Tab (Potassium Chloride) 20 Meq Tab 20 Meq PO TID Isosorbide Mononitrate ER (Isosorbide Mononitrate) 30 Mg Adolph 30 Mg PO DAILY Metoprolol Tartrate 25 Mg Tab 25 Mg PO BID Lyrica (Pregabalin) 50 Mg Cap 50 Mg PO TID Ranitidine (Ranitidine HCl) 300 Mg Tab 150 Mg PO DAILY Tamsulosin (Tamsulosin HCl) 0.4 Mg Cap 0.4 Mg PO DAILY Tramadol (Tramadol HCl) 50 Mg Tab 50 Mg PO Q4H PRN Ipratropium Neb (Ipratropium [place]) 0.5 Mg/2.5 Ml Amp 0.5 Mg NEB TID NEB PRN Proair Respiclick Inh (Albuterol Sulfate) 90 Mcg/Act Aerp 2 Puff INH Q6H PRN Review of Systems Except as stated in HPI: all other systems reviewed are Neg Cardiovascular: Positive: Chest Pain or Discomfort Physical Exam Narrative GENERAL: SKIN: Warm and dry. HEAD: Atraumatic. Normocephalic. EYES: Pupils equal and round. No scleral icterus. No injection or drainage. ENT: No nasal bleeding or discharge. Mucous membranes pink and moist. NECK: Trachea midline. No JVD. CARDIOVASCULAR: Regular rate and rhythm. RESPIRATORY: No accessory muscle use. Clear to auscultation. Breath sounds equal bilaterally. GASTROINTESTINAL: Abdomen soft, ruq mild tender to palpation, nondistended. obese MUSCULOSKELETAL: Extremities without clubbing, cyanosis, or edema. No obvious deformities. NEUROLOGICAL: Awake and alert. No obvious cranial nerve deficits. Motor grossly within normal limits. Five out of 5 muscle strength in the arms and legs. Normal speech. PSYCHIATRIC: Appropriate mood and affect; insight and judgment normal. Data Data Last Documented VS Vital Signs Date Time Temp Pulse Resp B/P (MAP) Pulse Ox O2 Delivery O2 Flow Rate FiO2 07/13/17 08:15 63 20 120/87 (98) 95 Nasal Cannula 2.00 07/13/17 07:21 97.8 Orders Orders Electrocardiogram (07/13/17 07:18) B-Type Natriuretic Peptide (07/13/17 07:18) Ckmb (Isoenzyme) Profile (07/13/17 07:18) Complete Blood Count With Diff (07/13/17 07:18) Comprehensive Metabolic Panel (07/13/17 07:18) Prothrombin Time / Inr (Pt) (07/13/17 07:18) Act Partial Throm Time (Ptt) (07/13/17 07:18) Troponin I (07/13/17 07:18) Lipase (07/13/17 07:18) Chest, Single Ap (07/13/17 07:18) Ecg Monitoring (07/13/17 07:18) Bilateral Bp Monitoring (07/13/17 07:18) Iv Access Insert/Monitor (07/13/17 07:18) Oximetry (07/13/17 07:18) Oxygen Administration (07/13/17 07:18) Aspirin Chew (Aspirin Chew) (07/13/17 07:30) Nitroglycerin 2% Oint (Nitroglycerin 2% (07/13/17 07:30) Us Abdomen Gallbladder (07/13/17 ) Hydromorphone Pf Inj (Dilaudid Pf Inj) (07/13/17 07:45) Admit Order (Ed Use Only) (07/13/17 09:34) Vital Signs (Adult) Q4H (07/13/17 09:35) Cardiac Rhythm .As Directed (07/13/17 09:35) Notify Dr: Other .PRN (07/13/17 09:35) Notify Dr. Parameters (07/13/17 09:35) Resp Oxygen Nasal Cannula (07/13/17 ) Diet Npo (07/13/17 Breakfast) Ckmb (Isoenzyme) Profile (07/13/17 09:35) Ckmb (Isoenzyme) Profile (07/13/17 12:35) Troponin I (07/13/17 09:35) Troponin I (07/13/17 12:35) ^ Obtain (07/13/17 09:35) Sodium Chloride 0.9% Flush (Ns Flush) (07/13/17 09:45) Sodium Chloride 0.9% Flush (Ns Flush) (07/13/17 21:00) Morphine Inj (Morphine Inj) (07/13/17 09:45) Ondansetron Inj (Zofran Inj) (07/13/17 09:45) Nitroglycerin 2% Oint (Nitroglycerin 2% (07/13/17 12:00) [employer] Operator / Telemetry MADALYN.Q8H (07/13/17 09:35) Heparin Inj (Heparin Inj) (07/13/17 09:45) Labs Laboratory Tests Test 07/13/17 07:25 White Blood Count 6.2 TH/MM3 Red Blood Count 4.57 MIL/MM3 Hemoglobin 12.6 GM/DL Hematocrit 38.7 % Mean Corpuscular Volume 84.7 FL Mean Corpuscular Hemoglobin 27.7 PG Mean Corpuscular Hemoglobin Concent 32.7 % Red Cell Distribution Width 17.3 % Platelet Count 206 TH/MM3 Mean Platelet Volume 8.5 FL Neutrophils (%) (Auto) 69.3 % Lymphocytes (%) (Auto) 15.3 % Monocytes (%) (Auto) 9.4 % Eosinophils (%) (Auto) 4.3 % Basophils (%) (Auto) 1.7 % Neutrophils # (Auto) 4.3 TH/MM3 Lymphocytes # (Auto) 1.0 TH/MM3 Monocytes # (Auto) 0.6 TH/MM3 Eosinophils # (Auto) 0.3 TH/MM3 Basophils # (Auto) 0.1 TH/MM3 CBC Comment DIFF FINAL Differential Comment Prothrombin Time 10.8 SEC Prothromb Time International Ratio 1.0 RATIO Activated Partial Thromboplast Time 27.5 SEC Blood Urea Nitrogen 35 MG/DL Creatinine 2.04 MG/DL Random Glucose 98 MG/DL Total Protein 6.9 GM/DL Albumin 3.4 GM/DL Calcium Level 8.4 MG/DL Alkaline Phosphatase 79 U/L Aspartate Amino Transf (AST/SGOT) 12 U/L Alanine Aminotransferase (ALT/SGPT) 20 U/L Total Bilirubin 0.3 MG/DL Sodium Level 138 MEQ/L Potassium Level 4.8 MEQ/L Chloride Level 101 MEQ/L Carbon Dioxide Level 31.3 MEQ/L Anion Gap 6 MEQ/L Estimat Glomerular Filtration Rate 34 ML/MIN Total Creatine Kinase 66 U/L Troponin I LESS THAN 0.02 NG/ML B-Type Natriuretic Peptide 114 PG/ML Lipase 127 U/L [facility] Medical Decision Making Medical Screen Exam Complete: Yes Emergency Medical Condition: Yes Medical Record Reviewed: Yes Interpretation(s) paced rhythm Differential Diagnosis stemi v nonstemi v ptx v pna v gb dz v pancreatitis Narrative Course patient had thorough evaluation and due to such high risk medical history for cardiac will admit for observation.....currently patient is symptom free. negative first set of troponin Diagnosis Primary Impression: Chest pain, rule out acute myocardial infarction Admitting Information Admitting Physician Requests: Observation Alexei Zamarripa MD Jul 13, 2017 07:27
[2017-07-13] MEDS ORDERED: ASPIRIN 81 MG CHEW TAB PO ONE (07:30)
[2017-07-13] MEDS ORDERED: NITROGLYCERIN 2% OINT 1 GM PACKET TOP ONE (07:30)
[2017-07-13] MEDS ORDERED: HYDROmorphone HCL PF 1 MG/ML VIAL IV PUSH ONE (07:45)
[2017-07-13 07:51] LABS: AUTOMATED NEUTROPHIL # 4.3 TH/MM3 (1.8-7.7); BASOPHIL # 0.1 TH/MM3 (0-0.2); BASOPHIL % 1.7 % (0.0-2.0); EOSINOPHIL # 0.3 TH/MM3 (0-0.4); EOSINOPHIL % 4.3 % (0.0-4.0); HEMATOCRIT 38.7 % (39.0-51.0); HEMO FLAGS DIFF FINAL; LYMPH % 15.3 % (9.0-44.0); MEAN CELL VOLUME 84.7 FL (80.0-100.0); MEAN CORPUSCULAR HEMOGLOBIN 27.7 PG (27.0-34.0); MEAN CORPUSCULAR HGB CONC 32.7 % (32.0-36.0); MONO % 9.4 % (0.0-8.0); NEUT % 69.3 % (16.0-70.0); PLATELET COUNT 206 TH/MM3 (150-450); RED BLOOD COUNT 4.57 MIL/MM3 (4.50-5.90); RED CELL DISTRIBUTION WIDTH 17.3 % (11.6-17.2); WHITE BLOOD COUNT 6.2 TH/MM3 (4.0-11.0)
[2017-07-13 07:58] LABS: APTT (PATIENT) 27.5 SEC (24.3-30.1); PROTHROMBIN TIME - PATIENT 10.8 SEC (9.8-11.6)
[2017-07-13 08:07] LABS: ALT (GPT) 20 U/L (12-78); ANION GAP 6 MEQ/L (5-15); AST (GOT) 12 U/L (15-37); BICARBONATE 31.3 MEQ/L (21.0-32.0); BLOOD UREA NITROGEN 35 MG/DL (7-18); CHLORIDE 101 MEQ/L (98-107); GLOMERULAR FILTRATION RATE 34 ML/MIN (>89); POTASSIUM 4.8 MEQ/L (3.5-5.1); SODIUM (NA) 138 MEQ/L (136-145)
[2017-07-13 08:11] LABS: ALKALINE PHOSPHATASE 79 U/L (45-117); TOTAL BILIRUBIN ADULT 0.3 MG/DL (0.2-1.0)
[2017-07-13 08:16] LABS: CREATINE KINASE 66 U/L (39-308)
--- NOTE | 2017-07-13 08:20 | RADRPT ---
EXAM DATE/TIME: 07/13/2017 07:46 [facility] COMPARISON: CHEST SINGLE AP, June 14, 2017, 10:10. SPINE LUMBAR LTD (AP & LAT), June 15, 2017, 8:11. INDICATIONS : Chest Pain MEDICAL HISTORY : Chronic obstructive pulmonary disease. Congestive heart failure. SURGICAL HISTORY : Pacemaker. CABG. ENCOUNTER: Initial ACUITY: 1 day PAIN SCORE: 8/10 LOCATION: Bilateral chest FINDINGS: The heart is mildly enlarged. The patient is post median sternotomy. There is a transvenous pacer in place. There is a small right-sided effusion. There is elevation of the right hemidiaphragm and compr essive atelectasis at the right lung base. There are chronic interstitial changes. The examination is stable compared to previous dated 06/14/17. The bony structures are intact. CONCLUSION: 1. Cardiomegaly. 2. Elevation of the right hemidiaphragm with minimal right basilar effusion and diffuse interstitial changes. 3. Stable compared to previous examination dated 06/14/17. Santos Ruvalcaba MD on July 13, 2017 at 8:17 Board Certified Radiologist. This report was verified electronically.
--- NOTE | 2017-07-13 08:38 | RADRPT ---
EXAM DATE/TIME: 07/13/2017 07:47 [facility] COMPARISON: US KIDNEY/RENAL/BLADDER, February 05, 2016, 10:46. INDICATIONS : Right upper quadrant pain. MEDICAL HISTORY : Gastroesophageal reflux disease. Hypercholesterolemia. Hypertension. Heart attack. Transient ischemic attack. Parkinson's disease. copd. hyperlipidemia. inflammatory bowel disease. SURGICAL HISTORY : Tonsillectomy. Pacemaker. CABG. Ablation. Sinus surgery. ENCOUNTER: Initial ACUITY: 3 days PAIN SCORE: 8/10 LOCATION: Right upper quadrant MEASUREMENTS: LIVER: 17.3 cm length COMMON DUCT: 3 mm RIGHT KIDNEY: 9.9 x 4.2 x 5.3 cm FINDINGS: LIVER: The liver is at the upper limits of normal in size measuring 17.3 cm in length. No focal masses seen. No intrahepatic biliary ductal dilation is identified. COMMON DUCT: No intraluminal mass or stone visualized. GALLBLADDER: Contains no stones, demonstrates no wall thickening or pericholecystic fluid. PANCREAS: The pancreas is nonvisualized due to overlying bowel gas. RIGHT KIDNEY: No evidence of hydronephrosis, stone, or mass. CONCLUSION: 1. The liver is at the upper limits of normal in size. 2. No gallstones are identified. No significant gallbladder wall thickening or pericolic cystic fluid . Santos Ruvalcaba MD on July 13, 2017 at 8:35 Board Certified Radiologist. This report was verified electronically.
[2017-07-13] MEDS ORDERED: SODIUM CHLORIDE 0.9% FLUSH 10 ML FLUSH IV FLUSH PRN (09:45)
[2017-07-13] MEDS ORDERED: ONDANSETRON HCL 4 MG/2 ML VIAL IV PUSH PRN (09:45)
[2017-07-13] MEDS: HEPARIN SODIUM - SQ 10,000 UNITS/ML VIAL SQ SCH ×2 (10:51→22:15)
[2017-07-13 11:32] LABS: CREATINE KINASE 55 U/L (39-308)
[2017-07-13 12:17] LABS: CREATINE KINASE 54 U/L (39-308)
[2017-07-13] MEDS: NITROGLYCERIN 2% OINT 1 GM PACKET TOP SCH ×2 (12:35→19:01)
[2017-07-13 14:30] LABS: CREATINE KINASE 51 U/L (39-308)
--- NOTE | 2017-07-13 14:44 | HHI.HP ---
HPI Service [facility] Primary Care Physician Dax Montana MD Admission Diagnosis CP R/O NM Chief Complaint: Chest pain, weight gain Travel History International Travel<30 Days: No Contact w/Intl Traveler <30 Da: No Traveled to Known Affected Are: No History of Present Illness Mr. Rodriguez is a 56 y/o WM with significant cardiac history to include NM 9, CHF with EF 50% and grade 1 diastolic dysfunction on echo from 02/2016, CAD s/p CABG 6, AICD, hypertension, and COPD. Pt reported to the ED at [facility] on 07/13/17 with complaints of chest pain and weight gain of 20lbs in the last 2-3 days. He has noted some increased abdominal girth and LE edema. He has been taking his Bumex 2mg in the morning and 1mg at night and over the last few days he has even been taking 1mg in the middle of the day to try to get more fluid off. He has had some chest pain which is consistent with the pain he gets with he has fluid retention. The chest pain is substernal pressure-like sensation which has been and started at about 4am this morning. He took his own NTG and EMS gave him ASA 162 and NGT spray x 2 with some improvement. He had nitro paste placed and pt was r/o with three sets of CE. Pt denies any palpitations, dizziness, weakness. He overall feels tired but is otherwise feeling more stable. He states that his chest pain is improving compared to prior to admission. Review of Systems Constitutional: COMPLAINS OF: Weight gain, DENIES: Diaphoretic episodes, Fever , Dizziness Eyes: DENIES: Vision loss Ears, nose, mouth, throat: DENIES: Hearing loss Respiratory: DENIES: Cough, Shortness of breath Cardiovascular: COMPLAINS OF: Chest pain, Lower Extremity Edema, DENIES: Palpitations, Dyspnea on Exertion Gastrointestinal: DENIES: Abdominal pain, Nausea, Vomiting Genitourinary: DENIES: Urinary frequency, Dysuria Musculoskeletal: DENIES: Back pain Integumentary: DENIES: Rash Neurologic: DENIES: Headache Psychiatric: DENIES: Confusion Past Family Social History Past Medical History BPH CAD with hx of NM, last [facility] 02/20 here at [place] Hx of shingles, left arm CHF, EF 50% and grade 1 diastolic dysfunction on echo from 02/2016 CKD, stage 3, hx of recurrent regina. renal bx 03/22It showed global glomerulosclerosis, acute tubular injury, interstitial fibrosis/tubular injury mild. Severe arteriosclerosis COPD DDD Depression Anxiety GERD HTN Hyperlipidemia Obesity Past Surgical History EPS with radiofrequency ablation ablation of ventricular tachycardia on 06/20/16 Dual-chamber AICD implantation on 02/21/[address] Grider. [facility] (02/21/16) --> noted LAD was totally occluded in its midportion with competitive flow noted, left circumflex had 75-80% stenosis in the proximal position, a subtotal stenosis was then noted and the distal portion of the artery filled by collaterals from the circumflex branches as well as a small ramus branch. This also supplied collaterals to the distal right coronary. The right coronary itself was totally occluded in its midportion with faint bridging collaterals. The left internal mammary artery was grafted into the LAD and was widely patent with good flow in the LAD with some collateralization to the right coronary. Appendectomy CABG x 6 Exploratory mediastinotomy PTCA with multiple stents Cholecystectomy Lipoma removed from his back Right inguinal hernia repair Right knee surgery Bilateral shoulder surgery Tonsillectomy with adenoidectomy Reported Medications Bumetanide 2 Mg Tab 2 Mg PO DAILY Allopurinol 100 Mg Tab 300 Mg PO DAILY Alprazolam 0.25 Mg Tab 0.25 Mg PO TID PRN Amiodarone (Amiodarone HCl) 200 Mg Tab 200 Mg PO BID Aspirin EC (Aspirin) 81 Mg Tabdr 81 Mg PO DAILY Plavix (Clopidogrel Bisulfate) 75 Mg Tab 75 Mg PO DAILY Nitroglycerin SL (Nitroglycerin) 0.4 Mg Subl 0.4 Mg SL DIRECTED PRN ONE TABLET UNDER THE TONGUE NEEDED FOR CHEST PAIN, MAY REPEAT EVERY FIVE MINUTES FOR A TOTAL OF 3 DOSES OR CALL 911 IF NO RELIEF K-Tab (Potassium Chloride) 20 Meq Tab 20 Meq PO TID Isosorbide Mononitrate ER (Isosorbide Mononitrate) 30 Mg Adolph 30 Mg PO DAILY Metoprolol Tartrate 25 Mg Tab 25 Mg PO BID Lyrica (Pregabalin) 50 Mg Cap 50 Mg PO TID Ranitidine (Ranitidine HCl) 300 Mg Tab 150 Mg PO DAILY Tamsulosin (Tamsulosin HCl) 0.4 Mg Cap 0.4 Mg PO DAILY Tramadol (Tramadol HCl) 50 Mg Tab 50 Mg PO Q4H PRN Ipratropium Neb (Ipratropium [employer]) 0.5 Mg/2.5 Ml Amp 0.5 Mg NEB TID NEB PRN Proair Respiclick Inh (Albuterol Sulfate) 90 Mcg/Act Aerp 2 Puff INH Q6H PRN Allergies: Coded Allergies: Sulfa (Sulfonamide Antibiotics) (Verified Allergy, Severe, HIVES, 07/13/17) oxycodone (Verified Allergy, Severe, RASH, 07/13/17) lorazepam (Verified Adverse Reaction, Severe, Confusion, 07/13/17) MAKES PT "CRAZY" Family History Mother with hx of CHF Father with hx of CAD Brother with hx of CAD/NM Sister with hx of CVA Social History Denies any regular alcohol or illicit drug use Hx of tobacco use, smoked 1/2 ppd x 4 years, quit around 10 years ago Pt is currently and lives with his . He does not work secondary to disability Physical Exam Vital Signs Vital Signs Date Time Temp Pulse Resp B/P (MAP) Pulse Ox O2 Delivery O2 Flow Rate FiO2 07/13/17 11:48 97.5 67 20 133/85 (101) 94 07/13/17 11:33 97.8 62 20 130/77 (94) 96 Nasal Cannula 2.00 07/13/17 10:46 98.0 65 18 133/58 (83) 96 Nasal Cannula 2.00 07/13/17 09:43 97.8 60 20 134/71 (92) 96 Nasal Cannula 2.00 07/13/17 08:15 63 20 120/87 (98) 95 Nasal Cannula 2.00 07/13/17 08:11 20 07/13/17 07:27 60 20 140/82 (101) 95 Nasal Cannula 2.00 140/85 (103) 07/13/17 07:24 20 95 Nasal Cannula 2.00 07/13/17 07:24 95 Nasal Cannula 2.00 07/13/17 07:21 61 20 95 Nasal Cannula 2.00 07/13/17 07:21 97.8 61 20 138/82 (100) 92 Physical Exam GENERAL: This is a well-nourished, well-developed patient, in no apparent distress. SKIN: No rashes, ecchymoses or lesions. Cool and dry. HEENT: Atraumatic. Normocephalic. No temporal or scalp tenderness. No scleral icterus. Airway patent. NECK: Trachea midline, supple, nontender. CARDIO: Regular . RESP: CTA ABD: +BS, soft, protuberant, non-tender EXT: Trace bilateral LE edema. NEURO: Awake and alert. Motor and sensory grossly within normal limits. Normal speech. Laboratory Laboratory Tests Test 07/13/17 07:25 07/13/17 10:42 07/13/17 11:16 07/13/17 13:40 White Blood Count 6.2 Red Blood Count 4.57 Hemoglobin 12.6 Hematocrit 38.7 Mean Corpuscular Volume 84.7 Mean Corpuscular Hemoglobin 27.7 Mean Corpuscular Hemoglobin Concent 32.7 Red Cell Distribution Width 17.3 Platelet Count 206 Mean Platelet Volume 8.5 Neutrophils (%) (Auto) 69.3 Lymphocytes (%) (Auto) 15.3 Monocytes (%) (Auto) 9.4 Eosinophils (%) (Auto) 4.3 Basophils (%) (Auto) 1.7 Neutrophils # (Auto) 4.3 Lymphocytes # (Auto) 1.0 Monocytes # (Auto) 0.6 Eosinophils # (Auto) 0.3 Basophils # (Auto) 0.1 CBC Comment DIFF FINAL Differential Comment Prothrombin Time 10.8 Prothromb Time International Ratio 1.0 Activated Partial Thromboplast Time 27.5 Blood Urea Nitrogen 35 Creatinine 2.04 Random Glucose 98 Total Protein 6.9 Albumin 3.4 Calcium Level 8.4 Alkaline Phosphatase 79 Aspartate Amino Transf (AST/SGOT) 12 Alanine Aminotransferase (ALT/SGPT) 20 Total Bilirubin 0.3 Sodium Level 138 Potassium Level 4.8 Chloride Level 101 Carbon Dioxide Level 31.3 Anion Gap 6 Estimat Glomerular Filtration Rate 34 Total Creatine Kinase 66 55 54 51 Troponin I LESS THAN 0.02 LESS THAN 0.02 LESS THAN 0.02 LESS THAN 0.02 B-Type Natriuretic Peptide 114 Lipase 127 Result Diagram: 07/13/1772407/13/17724 Imaging Last Impressions Chest X-Ray 07/13/17717 Signed Impressions: Service Date/Time: Thursday, July 13, 2017 07:46 - CONCLUSION: 1. Cardiomegaly. 2. Elevation of the right hemidiaphragm with minimal right basilar effusion and diffuse interstitial changes. 3. Stable compared to previous examination dated 06/14/17. Santos Ruvalcaba MD Gall Bladder Ultrasound 07/13/17 0000 Signed Impressions: Service Date/Time: Thursday, July 13, 2017 07:47 - CONCLUSION: 1. The liver is at the upper limits of normal in size. 2. No gallstones are identified. No significant gallbladder wall thickening or pericolic cystic fluid. Santos Ruvalcaba MD Septic Shock Reassessment Heart: Regular rate and rhythm Lungs: Clear Skin: Warm Caprini VTE Risk Assessment Caprini VTE Risk Assessment: Mod/High Risk (score >= 2) Caprini Risk Assessment Model Point Value = 1 Point Value = 2 Point Value = 3 Point Value = 5 Age 41-60 Minor surgery BMI > 25 kg/m2 Swollen legs Varicose veins or History of unexplained or recurrent spontaneous Oral contraceptives or hormone replacement Sepsis (< 1 month) Serious lung disease, including pneumonia (< 1 month) Abnormal pulmonary function Acute myocardial infarction Congestive heart failure (< 1 month) History of inflammatory bowel disease Medical patient at bed rest Age 61-74 Arthroscopic surgery Major open surgery (> 45 min) Laparoscopic surgery (> 45 min) Malignancy Confined to bed (> 72 hours) Immobilizing plaster cast Central venous access Age >= 75 History of VTE Family history of VTE Factor V Leiden Prothrombin [id number] Lupus anticoagulant Anticardiolipin antibodies Elevated serum homocysteine Heparin-induced thrombocytopenia Other congenital or acquired thrombophilia Stroke (< 1 month) Elective arthroplasty Hip, pelvis, or leg fracture Acute spinal cord injury (< 1 month) Prophylaxis Regimen Total Risk Factor Score Risk Level Prophylaxis Regimen 0-1 Low Early ambulation 2 Moderate Order ONE of the following: *Sequential Compression Device (SCD) *Heparin 5000 units SQ BID 3-4 Higher Order ONE of the following medications: *Heparin 5000 units SQ TID *Enoxaparin/Lovenox 40 mg SQ daily (WT < 150 kg, CrCl > 30 mL/min) *Enoxaparin/Lovenox 30 mg SQ daily (WT < 150 kg, CrCl > 10-29 mL/min) *Enoxaparin/Lovenox 30 mg SQ BID (WT < 150 kg, CrCl > 30 mL/min) AND/OR *Sequential Compression Device (SCD) 5 or more Highest Order ONE of the following medications: *Heparin 5000 units SQ TID (Preferred with Epidurals) *Enoxaparin/Lovenox 40 mg SQ daily (WT < 150 kg, CrCl > 30 mL/min) *Enoxaparin/Lovenox 30 mg SQ daily (WT < 150 kg, CrCl > 10-29 mL/min) *Enoxaparin/Lovenox 30 mg SQ BID (WT < 150 kg, CrCl > 30 mL/min) AND *Sequential Compression Device (SCD) Assessment and Plan Problem List: (1) Chest pain ICD Codes: R07.9 - Chest pain Status: Acute Plan: - Pt is a 56 y/o male admitted with chest pain that began early this morning and weight gain over the last 2-3 days He has hx of diastolic CHF. Pt states that he has been on his Bumex 2mg in AM and 1mg in PM and occasionally an extra dose of Bumex 1mg in the afternoon - He reports that he has had a weight gain of around 20lbs over the last few days. - Symptoms are likely related to some volume overloaded. - He is typically on 2L of supplemental O2 at home. - Pt was r/o for ACS with serial CE - We will give IV Bumex 1mg BID and monitor BMP - Duoneb treatment - Weigh patient daily on bedside stand up scale - Monitor labs - Supportive care - DVT prophylaxis with Heparin (2) CHF (congestive heart failure) ICD Codes: I50.9 - Congestive heart failure Status: Chronic Plan: - See above (3) Hypertension ICD Codes: I10 - Hypertension Status: Chronic Plan: - Home meds resumed (4) Hyperlipemia ICD Codes: E78.5 - Hyperlipidemia Status: Chronic Plan: - Home meds resumed (5) CKD (chronic kidney disease) stage 3, GFR 30-59 ml/min ICD Codes: N18.3 - Chronic kidney disease, stage 3 (moderate) Status: Chronic Problem Qualifiers (1) CHF (congestive heart failure): Qualified Codes: I50.32 - Chronic diastolic (congestive) heart failure Judy Marinelli Jul 13, 2017 14:44
[2017-07-13] MEDS ORDERED: ALPRAZolam 0.25 MG TAB PO PRN (16:30)
[2017-07-13] MEDS ORDERED: RESP: ALBUTEROL 2.5 MG/IPRATROPIUM 0.5 MG NEB (PRN) NEB (16:45)
[2017-07-13] MEDS ORDERED: ALBUTEROL INH PRN (17:15)
[2017-07-13] MEDS: POTASSIUM CHLORIDE 20 MEQ CONTROLLED RELEASE TAB PO SCH (19:01)
[2017-07-13] MEDS: BUMETANIDE INJ 1 MG/4 ML VIAL IV PUSH SCH (19:01)
[2017-07-13] MEDS: PREGABALIN 25 MG CAP PO SCH (19:26)
[2017-07-13] MEDS: METOPROLOL TARTRATE 25 MG TAB PO SCH (20:58)
[2017-07-13] MEDS: FAMOTIDINE 20 MG TAB PO SCH (22:14)
[2017-07-13] MEDS: AMIODARONE 200 MG TAB PO SCH (22:14)
[2017-07-13] MEDS: SODIUM CHLORIDE 0.9% FLUSH 10 ML FLUSH IV FLUSH SCH (22:14)
[2017-07-13] MEDS: MORPHINE SULFATE 4 MG/ML INJ IV PUSH PRN (22:20)
[2017-07-14] VITALS (16 sets, daily range): BP systolic 110–181; BP diastolic 63–91; PULSE 59–89; RESP 16–20; TEMP 97.4–98.6; O2SAT 93–97
[2017-07-14] MEDS: NITROGLYCERIN 2% OINT 1 GM PACKET TOP SCH ×5 (00:23→23:47)
[2017-07-14] MEDS: ACETAMINOPHEN 500 MG CPLT PO PRN (04:20)
[2017-07-14] MEDS: traMADol HCL 50 MG TAB PO PRN ×2 (04:22→11:57)
[2017-07-14 07:07] LABS: AUTOMATED NEUTROPHIL # 2.9 TH/MM3 (1.8-7.7); BASOPHIL # 0.1 TH/MM3 (0-0.2); BASOPHIL % 1.8 % (0.0-2.0); EOSINOPHIL # 0.2 TH/MM3 (0-0.4); EOSINOPHIL % 5.2 % (0.0-4.0); HEMATOCRIT 36.7 % (39.0-51.0); HEMO FLAGS DIFF FINAL; LYMPH % 17.9 % (9.0-44.0); LYMPHOCYTE # 0.8 TH/MM3 (1.0-4.8); MEAN CELL VOLUME 85.1 FL (80.0-100.0); MEAN CORPUSCULAR HEMOGLOBIN 27.6 PG (27.0-34.0); MEAN CORPUSCULAR HGB CONC 32.5 % (32.0-36.0); MONO % 9.9 % (0.0-8.0); NEUT % 65.2 % (16.0-70.0); PLATELET COUNT 189 TH/MM3 (150-450); RED BLOOD COUNT 4.32 MIL/MM3 (4.50-5.90); RED CELL DISTRIBUTION WIDTH 17.2 % (11.6-17.2); WHITE BLOOD COUNT 4.5 TH/MM3 (4.0-11.0)
[2017-07-14 07:36] LABS: BICARBONATE 36.4 MEQ/L (21.0-32.0); MAGNESIUM 2.5 MG/DL (1.5-2.5); POTASSIUM 4.3 MEQ/L (3.5-5.1)
[2017-07-14] MEDS ORDERED: PNEUMOCOCCAL POLYVALENT INJ 25 MCG/0.5 ML SYR IM ONE (09:00)
--- NOTE | 2017-07-14 09:07 | HHI.PR ---
Subjective Remarks Pt weighed 119kg this morning on stand up scale. Pt has recorded out 1400cc of UOP but the pt does not think that he had much output overnight and feels like he cannot get his urine out. Objective Vitals Vital Signs Date Time Temp Pulse Resp B/P (MAP) Pulse Ox O2 Delivery O2 Flow Rate FiO2 07/14/17 08:24 97.5 60 16 136/91 (106) 96 07/14/17 04:06 95 07/14/17 04:03 89 07/14/17 04:00 97.4 60 18 135/73 (93) 95 07/14/17 00:24 97.7 70 18 113/65 (81) 93 07/14/17 00:04 66 07/13/17 22:34 95 Nasal Cannula 2.00 07/13/17 20:04 60 07/13/17 20:00 98.2 59 18 119/62 (81) 95 07/13/17 15:49 97.7 61 20 115/67 (83) 94 07/13/17 11:48 97.5 67 20 133/85 (101) 94 07/13/17 11:33 97.8 62 20 130/77 (94) 96 Nasal Cannula 2.00 07/13/17 10:46 98.0 65 18 133/58 (83) 96 Nasal Cannula 2.00 07/13/17 09:43 97.8 60 20 134/71 (92) 96 Nasal Cannula 2.00 Result Diagram: 07/14/1762307/14/17 0624 Other Results Laboratory Tests Test 07/13/17 07:25 07/13/17 10:42 07/13/17 11:16 07/13/17 13:40 White Blood Count 6.2 TH/MM3 Red Blood Count 4.57 MIL/MM3 Hemoglobin 12.6 GM/DL Hematocrit 38.7 % Mean Corpuscular Volume 84.7 FL Mean Corpuscular Hemoglobin 27.7 PG Mean Corpuscular Hemoglobin Concent 32.7 % Red Cell Distribution Width 17.3 % Platelet Count 206 TH/MM3 Mean Platelet Volume 8.5 FL Neutrophils (%) (Auto) 69.3 % Lymphocytes (%) (Auto) 15.3 % Monocytes (%) (Auto) 9.4 % Eosinophils (%) (Auto) 4.3 % Basophils (%) (Auto) 1.7 % Neutrophils # (Auto) 4.3 TH/MM3 Lymphocytes # (Auto) 1.0 TH/MM3 Monocytes # (Auto) 0.6 TH/MM3 Eosinophils # (Auto) 0.3 TH/MM3 Basophils # (Auto) 0.1 TH/MM3 CBC Comment DIFF FINAL Differential Comment Prothrombin Time 10.8 SEC Prothromb Time International Ratio 1.0 RATIO Activated Partial Thromboplast Time 27.5 SEC Blood Urea Nitrogen 35 MG/DL Creatinine 2.04 MG/DL Random Glucose 98 MG/DL Total Protein 6.9 GM/DL Albumin 3.4 GM/DL Calcium Level 8.4 MG/DL Alkaline Phosphatase 79 U/L Aspartate Amino Transf (AST/SGOT) 12 U/L Alanine Aminotransferase (ALT/SGPT) 20 U/L Total Bilirubin 0.3 MG/DL Sodium Level 138 MEQ/L Potassium Level 4.8 MEQ/L Chloride Level 101 MEQ/L Carbon Dioxide Level 31.3 MEQ/L Anion Gap 6 MEQ/L Estimat Glomerular Filtration Rate 34 ML/MIN Total Creatine Kinase 66 U/L 55 U/L 54 U/L 51 U/L Troponin I LESS THAN 0.02 NG/ML LESS THAN 0.02 NG/ML LESS THAN 0.02 NG/ML LESS THAN 0.02 NG/ML B-Type Natriuretic Peptide 114 PG/ML Lipase 127 U/L Test 07/14/17 06:24 White Blood Count 4.5 TH/MM3 Red Blood Count 4.32 MIL/MM3 Hemoglobin 11.9 GM/DL Hematocrit 36.7 % Mean Corpuscular Volume 85.1 FL Mean Corpuscular Hemoglobin 27.6 PG Mean Corpuscular Hemoglobin Concent 32.5 % Red Cell Distribution Width 17.2 % Platelet Count 189 TH/MM3 Mean Platelet Volume 8.3 FL Neutrophils (%) (Auto) 65.2 % Lymphocytes (%) (Auto) 17.9 % Monocytes (%) (Auto) 9.9 % Eosinophils (%) (Auto) 5.2 % Basophils (%) (Auto) 1.8 % Neutrophils # (Auto) 2.9 TH/MM3 Lymphocytes # (Auto) 0.8 TH/MM3 Monocytes # (Auto) 0.4 TH/MM3 Eosinophils # (Auto) 0.2 TH/MM3 Basophils # (Auto) 0.1 TH/MM3 CBC Comment DIFF FINAL Differential Comment Blood Urea Nitrogen 28 MG/DL Creatinine 1.74 MG/DL Random Glucose 78 MG/DL Calcium Level 8.6 MG/DL Magnesium Level 2.5 MG/DL Sodium Level 139 MEQ/L Potassium Level 4.3 MEQ/L Chloride Level 100 MEQ/L Carbon Dioxide Level 36.4 MEQ/L Anion Gap 3 MEQ/L Estimat Glomerular Filtration Rate 41 ML/MIN Imaging Last Impressions Chest X-Ray 07/13/17 0718 Signed Impressions: Service Date/Time: Thursday, July 13, 2017 07:46 - CONCLUSION: 1. Cardiomegaly. 2. Elevation of the right hemidiaphragm with minimal right basilar effusion and diffuse interstitial changes. 3. Stable compared to previous examination dated 06/14/17. Santos Ruvalcaba MD Gall Bladder Ultrasound 07/13/17 0000 Signed Impressions: Service Date/Time: Thursday, July 13, 2017 07:47 - CONCLUSION: 1. The liver is at the upper limits of normal in size. 2. No gallstones are identified. No significant gallbladder wall thickening or pericolic cystic fluid. Santos Ruvalcaba MD Objective Remarks General: NAD, AAOx3 Chest: CTA Cardiac: Regular Abd: +BS, soft mild suprapubic tenderness Ext: Minimal edema bilaterally A/P Problem List: (1) Chest pain ICD Codes: R07.9 - Chest pain Status: Acute Plan: - Pt is a 56 y/o male admitted with chest pain that began early this morning and weight gain over the last 2-3 days He has hx of diastolic CHF. Pt states that he has been on his Bumex 2mg in AM and 1mg in PM and occasionally an extra dose of Bumex 1mg in the afternoon - He reports that he has had a weight gain of around 20lbs over the last few days. - Symptoms are likely related to some volume overloaded. - He is typically on 2L of supplemental O2 at home. - Pt was r/o for ACS with serial CE - Cont. IV Bumex 1mg BID and monitor BMP - Duoneb treatment - Pt weighed 119kg this morning which is 261lbs which is much higher than his baseline weight of 245lbs - Monitor I&Os - Pt feels that he was unable to adequately empty his bladder last night and feels some suprapubic tenderness We will get a bladder scan this morning and pt may need Simmons cath placement. - Monitor labs - Supportive care - DVT prophylaxis with Heparin (2) CHF (congestive heart failure) ICD Codes: I50.9 - Congestive heart failure Status: Chronic Plan: - See above (3) Hypertension ICD Codes: I10 - Hypertension Status: Chronic Plan: - Home meds resumed (4) Hyperlipemia ICD Codes: E78.5 - Hyperlipidemia Status: Chronic Plan: - Home meds resumed (5) CKD (chronic kidney disease) stage 3, GFR 30-59 ml/min ICD Codes: N18.3 - Chronic kidney disease, stage 3 (moderate) Status: Chronic Assessment and Plan Patient examined. Assessment and plan formulated with Judy Marinelli PA-C. I agree with the above. chf exacerbation. 119 kg. today...he was 104kg in February upon d/c cont diuresis. cr trending down. daily weight. Problem Qualifiers (1) CHF (congestive heart failure): Qualified Codes: I50.32 - Chronic diastolic (congestive) heart failure Judy Marinelli Jul 14, 2017 09:07 Mahad Finn MD Jul 14, 2017 11:12
--- NOTE | 2017-07-14 09:15 | PD.CONS ---
HPI Consult Requested By Primary Care Physician Dax Montana MD History of Present Illness 56 y/o M with significant cardiac history to include DE 9, CHF with EF 50% , CABG 6, AICD, hypertension, and COPD. Pt reported to the ED at [facility] on 07/13/17 with complaints of chest pain and weight gain of 20lbs in the last 2-3 days. He has noted some increased abdominal girth and LE edema. He has been taking his Bumex 2mg in the morning and 1mg at night and over the last few days he has even been taking 1mg in the middle of the day to try to get more fluid off. He has had some chest pain which is consistent with the pain he gets with he has fluid retention. He r/o with three sets of CE. Pt denies any palpitations, dizziness, weakness. Review of Systems Consitutional: DENIES: Fatigue, Fever, Chills, Weight gain, Weight loss Eyes: DENIES: Amaurosis Fugax, Change in vision HEENT: DENIES: Lightheadedness, Change in hearing Respiratory: COMPLAINS OF: See HPI, Shortness of breath, DENIES: Cough, Snoring , Wheezing, Sputum production Cardiovascular: COMPLAINS OF: See HPI, Chest pain, DENIES: Palpitations, Syncope, Tachycardia Gastrointestinal: DENIES: Nausea, Vomiting, Change in bowel habits, Reflux, Bloody stools, Melena Genitourinary: DENIES: Urinary incontinence, Difficulty voiding Integumentary: DENIES: Rash Neurologic: DENIES: Tingling or numbness, Memory problems, Poor Balance, Stroke symptoms Musculoskeletal: DENIES: Joint pain, Muscle pain, Limited range of motion, Back pain Psychiatric: DENIES: Anxiety, Depression, Sleep disturbances Hematologic: DENIES: Bruising tendencies, Bleeding tendencies Endocrine: COMPLAINS OF: Weight gain, DENIES: Weight loss, Thyroid disease Past Family Social History Allergies: Coded Allergies: Sulfa (Sulfonamide Antibiotics) (Verified Allergy, Severe, HIVES, 07/13/17) oxycodone (Verified Allergy, Severe, RASH, 07/13/17) lorazepam (Verified Adverse Reaction, Severe, Confusion, 07/13/17) MAKES PT "CRAZY" Past Medical History BPH CAD with hx of DE, last [facility] 02/20 here at [place] Hx of shingles, left arm CHF, EF 50% and grade 1 diastolic dysfunction on echo from 02/2016 CKD, stage 3, hx of recurrent twin. renal bx 03/22It showed global glomerulosclerosis, acute tubular injury, interstitial fibrosis/tubular injury mild. Severe arteriosclerosis COPD DDD Depression Anxiety GERD HTN Hyperlipidemia Obesity Past Surgical History Past Surgical History EPS with radiofrequency ablation ablation of ventricular tachycardia on 06/20/16 Dual-chamber AICD implantation on 02/21/[address] Grider. CABG x 6 Exploratory mediastinotomy PTCA with multiple stents Cholecystectomy Lipoma removed from his back Right inguinal hernia repair Right knee surgery Bilateral shoulder surgery Tonsillectomy with adenoidectomy Reported Medications Reported Meds & Active Scripts Active Reported Bumetanide 2 Mg Tab 2 Mg PO DAILY Allopurinol 100 Mg Tab 300 Mg PO DAILY Alprazolam 0.25 Mg Tab 0.25 Mg PO TID PRN Amiodarone (Amiodarone HCl) 200 Mg Tab 200 Mg PO BID Aspirin EC (Aspirin) 81 Mg Tabdr 81 Mg PO DAILY Plavix (Clopidogrel Bisulfate) 75 Mg Tab 75 Mg PO DAILY Nitroglycerin SL (Nitroglycerin) 0.4 Mg Subl 0.4 Mg SL DIRECTED PRN ONE TABLET UNDER THE TONGUE NEEDED FOR CHEST PAIN, MAY REPEAT EVERY FIVE MINUTES FOR A TOTAL OF 3 DOSES OR CALL 911 IF NO RELIEF K-Tab (Potassium Chloride) 20 Meq Tab 20 Meq PO TID Isosorbide Mononitrate ER (Isosorbide Mononitrate) 30 Mg Adolph 30 Mg PO DAILY Metoprolol Tartrate 25 Mg Tab 25 Mg PO BID Lyrica (Pregabalin) 50 Mg Cap 50 Mg PO TID Ranitidine (Ranitidine HCl) 300 Mg Tab 150 Mg PO DAILY Tamsulosin (Tamsulosin HCl) 0.4 Mg Cap 0.4 Mg PO DAILY Tramadol (Tramadol HCl) 50 Mg Tab 50 Mg PO Q4H PRN Ipratropium Neb (Ipratropium [place]) 0.5 Mg/2.5 Ml Amp 0.5 Mg NEB TID NEB PRN Proair Respiclick Inh (Albuterol Sulfate) 90 Mcg/Act Aerp 2 Puff INH Q6H PRN Active Ordered Medications Current Medications Medications (Trade) Dose Ordered Sig/Luis Route Start Time Stop Time Status Last Admin (NS Flush) 2 ml UNSCH PRN IV FLUSH 07/13/17 09:45 (NS Flush) 2 ml BID IV FLUSH 07/13/17 21:00 07/13/17 22:14 (Morphine Inj) 2 mg Q4H PRN IV PUSH 07/13/17 09:45 07/13/17 22:20 (Zofran Inj) 4 mg Q6H PRN IV PUSH 07/13/17 09:45 (Nitroglycerin 2% Oint) 1 inch Q6HR TOP 07/13/17 12:00 07/14/17 06:09 (Heparin Inj) 5,000 units Q12H SQ 07/13/17 09:45 07/13/17 22:15 (Tylenol) 500 mg Q4H PRN PO 07/13/17 10:15 07/14/17 04:20 (Nitrostat Sl) 0.4 mg Q5M PRN SL 07/13/17 10:15 (Aspirin) 325 mg DAILY PO 07/14/17 09:00 (Flu (Quadrivalent) Vaccine Inj) 0.5 ml ONCE ONCE IM 07/14/17 10:00 07/14/17 10:01 (Bumex Inj) 1 mg BID@,18 IV PUSH 07/13/17 18:00 07/13/17 19:01 (Zyloprim) 300 mg DAILY PO 07/14/17 09:00 (Xanax) 0.25 mg TID PRN PO 07/13/17 16:30 (Cordarone) 200 mg BID PO 07/13/17 21:00 07/13/17 22:14 (Plavix) 75 mg DAILY PO 07/14/17 09:00 (Imdur) 30 mg DAILY PO 07/14/17 09:00 (Lopressor) 25 mg BID PO 07/13/17 21:00 (KCl) 20 meq TID PO 07/13/17 18:00 07/13/17 19:01 (Lyrica) 50 mg TID PO 07/13/17 18:00 07/13/17 19:26 (Flomax) 0.4 mg DAILY PO 07/14/17 09:00 (Ultram) 50 mg Q4H PRN PO 07/13/17 16:30 07/14/17 04:22 Patient Own Medication PT OWN MED:(Albuterol Powder ... Q6H PRN INH 07/13/17 17:15 Future Hold (Pepcid) 20 mg BID PO 07/13/17 21:00 07/13/17 22:14 (Duoneb Neb) 1 ampule Q4HR NEB PRN NEB 07/13/17 16:45 Family History Mother with hx of CHF Father with hx of CAD Brother with hx of CAD/DE Sister with hx of CVA Social History Denies any regular alcohol or illicit drug use Hx of tobacco use, smoked 1/2 ppd x 4 years, quit around 10 years ago Pt is currently and lives with his . He does not work secondary to disability Physical Exam Vital Signs Vital Signs Date Time Temp Pulse Resp B/P (MAP) Pulse Ox O2 Delivery O2 Flow Rate FiO2 07/14/17 08:24 97.5 60 16 136/91 (106) 96 07/14/17 04:06 95 07/14/17 04:03 89 07/14/17 04:00 97.4 60 18 135/73 (93) 95 07/14/17 00:24 97.7 70 18 113/65 (81) 93 07/14/17 00:04 66 07/13/17 22:34 95 Nasal Cannula 2.00 07/13/17 20:04 60 07/13/17 20:00 98.2 59 18 119/62 (81) 95 07/13/17 15:49 97.7 61 20 115/67 (83) 94 07/13/17 11:48 97.5 67 20 133/85 (101) 94 07/13/17 11:33 97.8 62 20 130/77 (94) 96 Nasal Cannula 2.00 07/13/17 10:46 98.0 65 18 133/58 (83) 96 Nasal Cannula 2.00 07/13/17 09:43 97.8 60 20 134/71 (92) 96 Nasal Cannula 2.00 Physical Exam GENERAL: Well-nourished, well-developed patient. SKIN: Warm and dry. HEAD: Normocephalic. EYES: No scleral icterus. No injection or drainage. NECK: Supple, trachea midline. No JVD or lymphadenopathy. CARDIOVASCULAR: Regular rate and rhythm without murmurs, gallops, or rubs. RESPIRATORY: Breath sounds equal bilaterally. No accessory muscle use. +rales Rt >Lt GASTROINTESTINAL: Abdomen soft, non-tender, nondistended. EXTREMITIES: No cyanosis, or +edema. NEUROLOGICAL: Awake, alert, and oriented x 3. Non-focal. Laboratory Laboratory Tests Test 07/13/17 10:42 07/13/17 11:16 07/13/17 13:40 07/14/17 06:24 Total Creatine Kinase 55 54 51 Troponin I LESS THAN 0.02 LESS THAN 0.02 LESS THAN 0.02 White Blood Count 4.5 Red Blood Count 4.32 Hemoglobin 11.9 Hematocrit 36.7 Mean Corpuscular Volume 85.1 Mean Corpuscular Hemoglobin 27.6 Mean Corpuscular Hemoglobin Concent 32.5 Red Cell Distribution Width 17.2 Platelet Count 189 Mean Platelet Volume 8.3 Neutrophils (%) (Auto) 65.2 Lymphocytes (%) (Auto) 17.9 Monocytes (%) (Auto) 9.9 Eosinophils (%) (Auto) 5.2 Basophils (%) (Auto) 1.8 Neutrophils # (Auto) 2.9 Lymphocytes # (Auto) 0.8 Monocytes # (Auto) 0.4 Eosinophils # (Auto) 0.2 Basophils # (Auto) 0.1 CBC Comment DIFF FINAL Differential Comment Blood Urea Nitrogen 28 Creatinine 1.74 Random Glucose 78 Calcium Level 8.6 Magnesium Level 2.5 Sodium Level 139 Potassium Level 4.3 Chloride Level 100 Carbon Dioxide Level 36.4 Anion Gap 3 Estimat Glomerular Filtration Rate 41 Result Diagram: 07/14/1762307/14/17623 Imaging Last Impressions Chest X-Ray 07/13/17 0718 Signed Impressions: Service Date/Time: Thursday, July 13, 2017 07:46 - CONCLUSION: 1. Cardiomegaly. 2. Elevation of the right hemidiaphragm with minimal right basilar effusion and diffuse interstitial changes. 3. Stable compared to previous examination dated 06/14/17. Santos Ruvalcaba MD Gall Bladder Ultrasound 07/13/17 0000 Signed Impressions: Service Date/Time: Thursday, July 13, 2017 07:47 - CONCLUSION: 1. The liver is at the upper limits of normal in size. 2. No gallstones are identified. No significant gallbladder wall thickening or pericolic cystic fluid. Santos Ruvalcaba MD Assessment and Plan Problem List: (1) CHF (congestive heart failure) ICD Codes: I50.9 - Congestive heart failure Status: Chronic Plan: 56 y/o M with acute on chronic diastolic heart failure exacerbation in the setting of diet noncompliance. CE x3 negative. Afebrile and hemodynamically stable. Recommendations: 1. Stric I&O 2. Daily weight 3. Low salt diet 4. Cont IV diuresis with Bumex 5. Cont Plavix, ASA, Lopressor, Imdur 6. ACEi on hold given TWIN Dr. Brice to f/u in AM (2) CKD (chronic kidney disease) stage 3, GFR 30-59 ml/min ICD Codes: N18.3 - Chronic kidney disease, stage 3 (moderate) Status: Chronic (3) VT (ventricular tachycardia) ICD Codes: I47.2 - Ventricular tachycardia Status: Acute (4) Hyperlipemia ICD Codes: E78.5 - Hyperlipidemia Status: Chronic (5) Hypertension ICD Codes: I10 - Hypertension Status: Chronic (6) COPD exacerbation ICD Codes: J44.1 - Obstructive chronic bronchitis with exacerbation Status: Chronic (7) Chest pain ICD Codes: R07.9 - Chest pain Status: Acute Problem Qualifiers (1) CHF (congestive heart failure): Qualified Codes: I50.32 - Chronic diastolic (congestive) heart failure Jasen Tian MD Jul 14, 2017 09:15
[2017-07-14] MEDS: BUMETANIDE INJ 1 MG/4 ML VIAL IV PUSH SCH ×2 (09:23→17:39)
[2017-07-14] MEDS: POTASSIUM CHLORIDE 20 MEQ CONTROLLED RELEASE TAB PO SCH ×3 (09:23→17:38)
[2017-07-14] MEDS: FAMOTIDINE 20 MG TAB PO SCH ×2 (09:23→21:18)
[2017-07-14] MEDS: METOPROLOL TARTRATE 25 MG TAB PO SCH ×2 (09:23→21:23)
[2017-07-14] MEDS: TAMSULOSIN HCL 0.4 MG CAP PO SCH (09:23)
[2017-07-14] MEDS: CLOPIDOGREL 75 MG TAB PO SCH (09:24)
[2017-07-14] MEDS: ASPIRIN 325 MG TAB PO SCH (09:24)
[2017-07-14] MEDS: HEPARIN SODIUM - SQ 10,000 UNITS/ML VIAL SQ SCH ×2 (09:24→21:18)
[2017-07-14] MEDS: AMIODARONE 200 MG TAB PO SCH ×2 (09:24→21:18)
[2017-07-14] MEDS: ISOSORBIDE MONONITRATE 30 MG TAB PO SCH (09:24)
[2017-07-14] MEDS: SODIUM CHLORIDE 0.9% FLUSH 10 ML FLUSH IV FLUSH SCH ×2 (09:25→21:17)
[2017-07-14] MEDS: ALLOPURINOL 100 MG TAB PO SCH (09:25)
[2017-07-14] MEDS: PREGABALIN 25 MG CAP PO SCH ×3 (09:25→17:38)
[2017-07-14] MEDS ORDERED: INFLUENZA VIRUS VACCINE (QUADRIVALENT) 0.5 ML SYR IM ONE (10:00)
--- NOTE | 2017-07-14 12:28 | EKG ---
Date Performed: 07/13/2017 Time Performed: 10:48:05 PTAGE: 56 years EKG: ELECTRONIC ATRIAL PACEMAKER LEFT BUNDLE BRANCH BLOCK ABNORMAL ECG PREVIOUS TRACING : 07/13/2017 07.22 Since previous tracing, no significant change noted DOCTOR: Mahad Bolivar Interpretating Date/Time 07/14/2017 12:26:56
--- NOTE | 2017-07-14 12:28 | EKG ---
Date Performed: 07/13/2017 Time Performed: 07:22:51 PTAGE: 56 years EKG: ELECTRONIC ATRIAL PACEMAKER INTRAVENTRICULAR CONDUCTION DELAY ABNORMAL ECG INTERPRETATION B ASED ON A DEFAULT AGE OF 40 YEARS PREVIOUS TRACING : 06/14/2017 09.52 Since previous tracing, no significant change noted DOCTOR: Mahad Bolivar Interpretating Date/Time 07/14/2017 12:26:36
--- NOTE | 2017-07-14 12:29 | EKG ---
Date Performed: 07/13/2017 Time Performed: 22:09:09 PTAGE: 56 years EKG: ELECTRONIC ATRIAL PACEMAKER MARKED LEFT AXIS DEVIATION LEFT BUNDLE BRANCH BLOCK ABNORMAL EC G PREVIOUS TRACING : 07/13/2017 13.50 Since previous tracing, no significant change noted DOCTOR: Mahad Bolivar Interpretating Date/Time 07/14/2017 12:27:26
--- NOTE | 2017-07-14 12:29 | EKG ---
Date Performed: 07/13/2017 Time Performed: 13:50:09 PTAGE: 56 years EKG: ELECTRONIC ATRIAL PACEMAKER MARKED LEFT AXIS DEVIATION LEFT BUNDLE BRANCH BLOCK ABNORMAL EC G PREVIOUS TRACING : 07/13/2017 10.48 Since previous tracing, no significant change noted DOCTOR: Mahad Bolivar Interpretating Date/Time 07/14/2017 12:27:12
[2017-07-14] MEDS: MORPHINE SULFATE 4 MG/ML INJ IV PUSH PRN (15:50)
[2017-07-15] VITALS (16 sets, daily range): BP systolic 87–149; BP diastolic 51–97; PULSE 58–86; RESP 18–20; TEMP 97.5–98.5; O2SAT 93–98
[2017-07-15] MEDS: MORPHINE SULFATE 4 MG/ML INJ IV PUSH PRN (00:03)
[2017-07-15] MEDS: traMADol HCL 50 MG TAB PO PRN ×3 (05:00→22:57)
[2017-07-15] MEDS: NITROGLYCERIN 2% OINT 1 GM PACKET TOP SCH ×4 (05:01→22:57)
[2017-07-15 07:42] LABS: AUTOMATED NEUTROPHIL # 4.2 TH/MM3 (1.8-7.7); BASOPHIL # 0.1 TH/MM3 (0-0.2); BASOPHIL % 0.9 % (0.0-2.0); EOSINOPHIL # 0.2 TH/MM3 (0-0.4); EOSINOPHIL % 3.1 % (0.0-4.0); HEMATOCRIT 38.2 % (39.0-51.0); HEMO FLAGS DIFF FINAL; LYMPH % 11.9 % (9.0-44.0); LYMPHOCYTE # 0.7 TH/MM3 (1.0-4.8); MEAN CELL VOLUME 85.5 FL (80.0-100.0); MEAN CORPUSCULAR HEMOGLOBIN 27.8 PG (27.0-34.0); MEAN CORPUSCULAR HGB CONC 32.5 % (32.0-36.0); MONO % 10.1 % (0.0-8.0); PLATELET COUNT 181 TH/MM3 (150-450); RED BLOOD COUNT 4.47 MIL/MM3 (4.50-5.90); WHITE BLOOD COUNT 5.7 TH/MM3 (4.0-11.0)
[2017-07-15] MEDS: NITROGLYCERIN 0.4 MG SL 25 TABS/BTL SL PRN ×3 (08:02→08:14)
[2017-07-15 08:14] LABS: MAGNESIUM 2.6 MG/DL (1.5-2.5); POTASSIUM 4.1 MEQ/L (3.5-5.1)
--- NOTE | 2017-07-15 08:18 | PD.CARD.PN ---
Subjective Subjective Remarks Admitted for fluid retention and weight gain. I/O -1500 yeterday. Complains of chest and abdominal pain this morning. ECG shows no acute ST or T wave changes. Troponin normal times 3 yesterday. Lipase normal as was GB ultrasound Objective Vital Signs / I&O Vital Signs Date Time Temp Pulse Resp B/P (MAP) Pulse Ox O2 Delivery O2 Flow Rate FiO2 07/15/17 08:06 3.00 07/15/17 07:53 98.3 60 20 136/79 (98) 98 07/15/17 07:18 96 Nasal Cannula 3.00 07/15/17 04:20 66 18 118/68 (85) 95 07/15/17 04:13 71 07/15/17 03:59 97.8 63 18 87/51 (63) 93 07/15/17 00:11 60 07/14/17 23:46 64 16 143/77 (99) 97 07/14/17 23:32 98.6 72 20 181/86 (117) 97 07/14/17 21:21 62 07/14/17 20:16 61 07/14/17 20:13 97.8 64 19 116/77 (90) 95 07/14/17 19:59 91 Nasal Cannula 3.00 07/14/17 19:54 94 Nasal Cannula 2.00 07/14/17 16:37 98.2 60 16 110/63 (79) 94 07/14/17 15:08 60 07/14/17 12:26 97.4 61 16 118/83 (95) 95 07/14/17 08:30 Nasal Cannula 2.00 07/14/17 08:24 97.5 60 16 136/91 (106) 96 I/O 07/14/17 07/14/17 07/14/17 07/15/17 07/15/17 07/15/17 07:00 15:00 23:00 07:00 15:00 23:00 Intake Total 250 ml 480 ml 1250 ml Output Total 650 ml 1025 ml 1025 ml Balance -400 ml -545 ml 225 ml Intake Oral 250 ml 480 ml 1250 ml Output Urine Total 650 ml 1025 ml 1025 ml Physical Exam Lungs clear RRR no murmur abd moderately tender. No guarding or rebound Laboratory Laboratory Tests Test 07/15/17 06:50 White Blood Count 5.7 TH/MM3 Red Blood Count 4.47 MIL/MM3 Hemoglobin 12.4 GM/DL Hematocrit 38.2 % Mean Corpuscular Volume 85.5 FL Mean Corpuscular Hemoglobin 27.8 PG Mean Corpuscular Hemoglobin Concent 32.5 % Red Cell Distribution Width 17.0 % Platelet Count 181 TH/MM3 Mean Platelet Volume 8.5 FL Neutrophils (%) (Auto) 74.0 % Lymphocytes (%) (Auto) 11.9 % Monocytes (%) (Auto) 10.1 % Eosinophils (%) (Auto) 3.1 % Basophils (%) (Auto) 0.9 % Neutrophils # (Auto) 4.2 TH/MM3 Lymphocytes # (Auto) 0.7 TH/MM3 Monocytes # (Auto) 0.6 TH/MM3 Eosinophils # (Auto) 0.2 TH/MM3 Basophils # (Auto) 0.1 TH/MM3 CBC Comment DIFF FINAL Differential Comment Blood Urea Nitrogen 24 MG/DL Creatinine 1.46 MG/DL Random Glucose 72 MG/DL Calcium Level 8.8 MG/DL Magnesium Level 2.6 MG/DL Sodium Level 138 MEQ/L Potassium Level 4.1 MEQ/L Chloride Level 99 MEQ/L Carbon Dioxide Level 34.0 MEQ/L Anion Gap 5 MEQ/L Estimat Glomerular Filtration Rate 50 ML/MIN Assessment and Plan Problem List: (1) CHF (congestive heart failure) ICD Codes: I50.9 - Congestive heart failure Status: Chronic (2) CKD (chronic kidney disease) stage 3, GFR 30-59 ml/min ICD Codes: N18.3 - Chronic kidney disease, stage 3 (moderate) Status: Chronic (3) VT (ventricular tachycardia) ICD Codes: I47.2 - Ventricular tachycardia Status: Acute (4) Hyperlipemia ICD Codes: E78.5 - Hyperlipidemia Status: Chronic (5) Hypertension ICD Codes: I10 - Hypertension Status: Chronic (6) COPD exacerbation ICD Codes: J44.1 - Obstructive chronic bronchitis with exacerbation Status: Chronic (7) Chest pain ICD Codes: R07.9 - Chest pain Status: Acute Plan: Will order CT abdomen. recheck troponin Problem Qualifiers (1) CHF (congestive heart failure): Qualified Codes: I50.32 - Chronic diastolic (congestive) heart failure Hernan Brice MD Jul 15, 2017 08:18
[2017-07-15] MEDS: HEPARIN SODIUM - SQ 10,000 UNITS/ML VIAL SQ SCH ×2 (09:38→22:56)
[2017-07-15] MEDS: SODIUM CHLORIDE 0.9% FLUSH 10 ML FLUSH IV FLUSH SCH ×2 (09:38→22:57)
[2017-07-15] MEDS: CLOPIDOGREL 75 MG TAB PO SCH (09:38)
[2017-07-15] MEDS: ASPIRIN 325 MG TAB PO SCH (09:38)
[2017-07-15] MEDS: BUMETANIDE INJ 1 MG/4 ML VIAL IV PUSH SCH ×2 (09:38→17:23)
[2017-07-15] MEDS: ALLOPURINOL 100 MG TAB PO SCH (09:39)
[2017-07-15] MEDS: FAMOTIDINE 20 MG TAB PO SCH ×2 (09:39→22:57)
[2017-07-15] MEDS: TAMSULOSIN HCL 0.4 MG CAP PO SCH (09:39)
[2017-07-15] MEDS: POTASSIUM CHLORIDE 20 MEQ CONTROLLED RELEASE TAB PO SCH ×3 (09:39→17:24)
[2017-07-15] MEDS: METOPROLOL TARTRATE 25 MG TAB PO SCH ×2 (09:39→22:57)
[2017-07-15] MEDS: ISOSORBIDE MONONITRATE 30 MG TAB PO SCH (09:39)
[2017-07-15] MEDS: AMIODARONE 200 MG TAB PO SCH ×2 (09:39→22:56)
[2017-07-15] MEDS: PREGABALIN 25 MG CAP PO SCH ×3 (09:39→17:24)
--- NOTE | 2017-07-15 10:17 | HHI.PR ---
Subjective Remarks Pt reports that he still has some midsternal/epigastric discomfort and slight nausea and some upper left chest pain that is reproducible with palpation of the upper chest wall Objective Vitals Vital Signs Date Time Temp Pulse Resp B/P (MAP) Pulse Ox O2 Delivery O2 Flow Rate FiO2 07/15/17 08:26 110/62 (78) 07/15/17 08:06 3.00 07/15/17 07:53 98.3 60 20 136/79 (98) 98 07/15/17 07:18 96 Nasal Cannula 3.00 07/15/17 04:20 66 18 118/68 (85) 95 07/15/17 04:13 71 07/15/17 03:59 97.8 63 18 87/51 (63) 93 07/15/17 00:11 60 07/14/17 23:46 64 16 143/77 (99) 97 07/14/17 23:32 98.6 72 20 181/86 (117) 97 07/14/17 21:21 62 07/14/17 20:16 61 07/14/17 20:13 97.8 64 19 116/77 (90) 95 07/14/17 19:59 91 Nasal Cannula 3.00 07/14/17 19:54 94 Nasal Cannula 2.00 07/14/17 16:37 98.2 60 16 110/63 (79) 94 07/14/17 15:08 60 07/14/17 12:26 97.4 61 16 118/83 (95) 95 Result Diagram: 07/15/17 0650 07/15/17 0650 Other Results Laboratory Tests Test 07/13/17 10:42 07/13/17 11:16 07/13/17 13:40 07/14/17 06:24 Total Creatine Kinase 55 U/L 54 U/L 51 U/L Troponin I LESS THAN 0.02 NG/ML LESS THAN 0.02 NG/ML LESS THAN 0.02 NG/ML White Blood Count 4.5 TH/MM3 Red Blood Count 4.32 MIL/MM3 Hemoglobin 11.9 GM/DL Hematocrit 36.7 % Mean Corpuscular Volume 85.1 FL Mean Corpuscular Hemoglobin 27.6 PG Mean Corpuscular Hemoglobin Concent 32.5 % Red Cell Distribution Width 17.2 % Platelet Count 189 TH/MM3 Mean Platelet Volume 8.3 FL Neutrophils (%) (Auto) 65.2 % Lymphocytes (%) (Auto) 17.9 % Monocytes (%) (Auto) 9.9 % Eosinophils (%) (Auto) 5.2 % Basophils (%) (Auto) 1.8 % Neutrophils # (Auto) 2.9 TH/MM3 Lymphocytes # (Auto) 0.8 TH/MM3 Monocytes # (Auto) 0.4 TH/MM3 Eosinophils # (Auto) 0.2 TH/MM3 Basophils # (Auto) 0.1 TH/MM3 CBC Comment DIFF FINAL Differential Comment Blood Urea Nitrogen 28 MG/DL Creatinine 1.74 MG/DL Random Glucose 78 MG/DL Calcium Level 8.6 MG/DL Magnesium Level 2.5 MG/DL Sodium Level 139 MEQ/L Potassium Level 4.3 MEQ/L Chloride Level 100 MEQ/L Carbon Dioxide Level 36.4 MEQ/L Anion Gap 3 MEQ/L Estimat Glomerular Filtration Rate 41 ML/MIN Test 07/15/17 06:50 White Blood Count 5.7 TH/MM3 Red Blood Count 4.47 MIL/MM3 Hemoglobin 12.4 GM/DL Hematocrit 38.2 % Mean Corpuscular Volume 85.5 FL Mean Corpuscular Hemoglobin 27.8 PG Mean Corpuscular Hemoglobin Concent 32.5 % Red Cell Distribution Width 17.0 % Platelet Count 181 TH/MM3 Mean Platelet Volume 8.5 FL Neutrophils (%) (Auto) 74.0 % Lymphocytes (%) (Auto) 11.9 % Monocytes (%) (Auto) 10.1 % Eosinophils (%) (Auto) 3.1 % Basophils (%) (Auto) 0.9 % Neutrophils # (Auto) 4.2 TH/MM3 Lymphocytes # (Auto) 0.7 TH/MM3 Monocytes # (Auto) 0.6 TH/MM3 Eosinophils # (Auto) 0.2 TH/MM3 Basophils # (Auto) 0.1 TH/MM3 CBC Comment DIFF FINAL Differential Comment Blood Urea Nitrogen 24 MG/DL Creatinine 1.46 MG/DL Random Glucose 72 MG/DL Calcium Level 8.8 MG/DL Magnesium Level 2.6 MG/DL Sodium Level 138 MEQ/L Potassium Level 4.1 MEQ/L Chloride Level 99 MEQ/L Carbon Dioxide Level 34.0 MEQ/L Anion Gap 5 MEQ/L Estimat Glomerular Filtration Rate 50 ML/MIN Imaging Last Impressions Chest X-Ray 07/13/17 0718 Signed Impressions: Service Date/Time: Thursday, July 13, 2017 07:46 - CONCLUSION: 1. Cardiomegaly. 2. Elevation of the right hemidiaphragm with minimal right basilar effusion and diffuse interstitial changes. 3. Stable compared to previous examination dated 06/14/17. Santos Ruvalcaba MD Gall Bladder Ultrasound 07/13/17 0000 Signed Impressions: Service Date/Time: Thursday, July 13, 2017 07:47 - CONCLUSION: 1. The liver is at the upper limits of normal in size. 2. No gallstones are identified. No significant gallbladder wall thickening or pericolic cystic fluid. Santos Ruvalcaba MD Objective Remarks General: NAD, AAOx3 Chest: CTA Cardiac: Regular Abd: +BS, soft mild suprapubic tenderness Ext: Minimal edema bilaterally A/P Problem List: (1) Chest pain ICD Codes: R07.9 - Chest pain Status: Acute Plan: - Pt is a 56 y/o male admitted with chest pain that began early this morning and weight gain over the last 2-3 days He has hx of diastolic CHF. Pt states that he has been on his Bumex 2mg in AM and 1mg in PM and occasionally an extra dose of Bumex 1mg in the afternoon - He reports that he has had a weight gain of around 20lbs over the last few days. - Symptoms are likely related to some volume overloaded. - He is typically on 2L of supplemental O2 at home. - Pt was r/o for ACS with serial CE - Cont. IV Bumex 1mg BID and monitor BMP - Duoneb treatment - Pt weighed 119kg on 07/14 which is 261lbs which is much higher than his baseline weight of 245lbs - Pt weight 109kg on 07/15. - Monitor I&Os - Renal function is stable. - CT Abdomen has been ordered by Cardiology and repeat troponin for today - Monitor labs - Supportive care - DVT prophylaxis with Heparin (2) CHF (congestive heart failure) ICD Codes: I50.9 - Congestive heart failure Status: Acute Plan: - See above (3) Hypertension ICD Codes: I10 - Hypertension Status: Chronic Plan: - Home meds resumed (4) Hyperlipemia ICD Codes: E78.5 - Hyperlipidemia Status: Chronic Plan: - Home meds resumed (5) CKD (chronic kidney disease) stage 3, GFR 30-59 ml/min ICD Codes: N18.3 - Chronic kidney disease, stage 3 (moderate) Status: Chronic Assessment and Plan Patient examined. Assessment and plan formulated with Judy Marinelli PA-C. I agree with the above. Problem Qualifiers (1) CHF (congestive heart failure): Qualified Codes: I50.32 - Chronic diastolic (congestive) heart failure Judy Marinelli Jul 15, 2017 10:17 Sunny Jenkins DO Jul 17, 2017 23:20
--- NOTE | 2017-07-15 11:20 | RADRPT ---
EXAM DATE/TIME: 07/15/2017 10:36 [facility] COMPARISON: CT ABDOMEN & PELVIS W/O CONTRAST, February 06, 2016, 13:35. INDICATIONS : Generalized abdominal pain. ORAL CONTRAST: No oral contrast ingested. RADIATION DOSE: 16.27 CTDIvol (mGy) MEDICAL HISTORY : Cardiovascular disease. Congestive heart failure. Hypertension. SURGICAL HISTORY : CABG Pacemaker. ENCOUNTER: Initial ACUITY: 1 day PAIN SCALE: 5/10 LOCATION: Bilateral lower quadrant TECHNIQUE: Volumetric scanning of the abdomen and pelvis was performed. Using automated exposure control and ad justment of the mA and/or kV according to patient size, radiation dose was kept as low as reasonably achievable to obtain optimal diagnostic quality images. DICOM format image data is available electro nically for review and comparison. FINDINGS: Minimal bibasilar parenchymal changes are noted worse on the right than the left. There is compensat ed cardiomegaly. The liver is free of focal defects. The spleen, pancreas and adrenals are unremarkable. Right and left kidneys appear normal without renal stone. Region of the cecum and terminal ileum unremarkable. There is no evidence for colitis. Midline abd ominal hernia. In the pelvis there are scattered diverticula in the sigmoid colon without diverticulitis. Bladder i s unremarkable. Review of bone windows reveals only degenerative changes. CONCLUSION: I do not see an etiology for the patient's generalized abdominal pain. There are no inflammatory candido nges evident. There is no evidence for ascites. Anil Ruvalcaba MD FACR on July 15, 2017 at 11:02 Board Certified Radiologist. This report was verified electronically.
--- NOTE | 2017-07-15 12:51 | EKG ---
Date Performed: 07/15/2017 Time Performed: 08:12:43 PTAGE: 56 years EKG: ELECTRONIC ATRIAL PACEMAKER INTRAVENTRICULAR CONDUCTION DELAY INFERIOR MYOCARDIAL INFARCTIO N ABNORMAL ECG INTERPRETATION BASED ON A DEFAULT AGE OF 40 YEARS Compared to prior tracing no signifi cant change PREVIOUS TRACING : 07/13/2017 22.09.09 DOCTOR: Hernan Brice Interpretating Date/Time 07/15/2017 12:50:20
[2017-07-16] VITALS (7 sets, daily range): BP systolic 94–127; BP diastolic 56–68; PULSE 60–75; RESP 18–24; TEMP 97.6–98.6; O2SAT 94–96
[2017-07-16] MEDS: MORPHINE SULFATE 4 MG/ML INJ IV PUSH PRN ×2 (01:36→22:20)
[2017-07-16] MEDS: NITROGLYCERIN 0.4 MG SL 25 TABS/BTL SL PRN (02:28)
[2017-07-16] MEDS: NITROGLYCERIN 2% OINT 1 GM PACKET TOP SCH ×4 (05:57→23:08)
[2017-07-16 08:19] LABS: AUTOMATED NEUTROPHIL # 3.7 TH/MM3 (1.8-7.7); BASOPHIL % 0.8 % (0.0-2.0); EOSINOPHIL # 0.2 TH/MM3 (0-0.4); EOSINOPHIL % 3.3 % (0.0-4.0); HEMATOCRIT 38.2 % (39.0-51.0); HEMO FLAGS DIFF FINAL; LYMPH % 15.4 % (9.0-44.0); LYMPHOCYTE # 0.8 TH/MM3 (1.0-4.8); MEAN CELL VOLUME 85.7 FL (80.0-100.0); MEAN CORPUSCULAR HEMOGLOBIN 27.4 PG (27.0-34.0); MEAN CORPUSCULAR HGB CONC 31.9 % (32.0-36.0); MONO % 10.9 % (0.0-8.0); NEUT % 69.6 % (16.0-70.0); PLATELET COUNT 186 TH/MM3 (150-450); RED BLOOD COUNT 4.46 MIL/MM3 (4.50-5.90); RED CELL DISTRIBUTION WIDTH 16.9 % (11.6-17.2); WHITE BLOOD COUNT 5.4 TH/MM3 (4.0-11.0)
--- NOTE | 2017-07-16 08:42 | PD.CARD.PN ---
Subjective Subjective Remarks breathing improved Objective Vital Signs / I&O Vital Signs Date Time Temp Pulse Resp B/P (MAP) Pulse Ox O2 Delivery O2 Flow Rate FiO2 07/16/17 04:00 98.4 64 24 127/68 (87) 95 07/16/17 00:00 98.4 75 22 114/63 (80) 94 07/15/17 22:00 3.00 07/15/17 20:00 98.5 71 19 130/72 (91) 95 07/15/17 20:00 58 07/15/17 18:58 98.3 60 18 109/61 (77) 94 07/15/17 17:27 112/74 (87) 07/15/17 16:01 60 07/15/17 15:33 98.0 64 20 95/54 (68) 96 07/15/17 12:02 61 07/15/17 11:06 97.5 63 18 101/56 (71) 95 I/O 07/15/17 07/15/17 07/15/17 07/16/17 07/16/17 07/16/17 07:00 15:00 23:00 07:00 15:00 23:00 Intake Total 1250 ml Output Total 1025 ml 1400 ml 930 ml Balance 225 ml -1400 ml -930 ml Intake Oral 1250 ml Output Urine Total 1025 ml 1400 ml 930 ml Physical Exam GENERAL: Well-nourished, well-developed patient in no apparent distress. NECK: No JVD. No carotid bruit. CARDIOVASCULAR: Regular rate and rhythm. S1/S2 no murmur, rub, or gallop. RESPIRATORY: No accessory muscle use. raled bilateral bases to auscultation. Breath sounds equal bilaterally. GASTROINTESTINAL: Abdomen soft, non-tender, nondistended. MUSCULOSKELETAL: Extremities without clubbing, cyanosis, or edema. Laboratory Laboratory Tests Test 07/16/17 06:15 White Blood Count 5.4 TH/MM3 Red Blood Count 4.46 MIL/MM3 Hemoglobin 12.2 GM/DL Hematocrit 38.2 % Mean Corpuscular Volume 85.7 FL Mean Corpuscular Hemoglobin 27.4 PG Mean Corpuscular Hemoglobin Concent 31.9 % Red Cell Distribution Width 16.9 % Platelet Count 186 TH/MM3 Mean Platelet Volume 8.6 FL Neutrophils (%) (Auto) 69.6 % Lymphocytes (%) (Auto) 15.4 % Monocytes (%) (Auto) 10.9 % Eosinophils (%) (Auto) 3.3 % Basophils (%) (Auto) 0.8 % Neutrophils # (Auto) 3.7 TH/MM3 Lymphocytes # (Auto) 0.8 TH/MM3 Monocytes # (Auto) 0.6 TH/MM3 Eosinophils # (Auto) 0.2 TH/MM3 Basophils # (Auto) 0.0 TH/MM3 CBC Comment DIFF FINAL Differential Comment Assessment and Plan Problem List: (1) CHF (congestive heart failure) ICD Codes: I50.9 - Congestive heart failure Status: Chronic (2) CKD (chronic kidney disease) stage 3, GFR 30-59 ml/min ICD Codes: N18.3 - Chronic kidney disease, stage 3 (moderate) Status: Chronic (3) VT (ventricular tachycardia) ICD Codes: I47.2 - Ventricular tachycardia Status: Acute (4) Hyperlipemia ICD Codes: E78.5 - Hyperlipidemia Status: Chronic (5) Hypertension ICD Codes: I10 - Hypertension Status: Chronic (6) COPD exacerbation ICD Codes: J44.1 - Obstructive chronic bronchitis with exacerbation Status: Chronic (7) Chest pain ICD Codes: R07.9 - Chest pain Status: Acute Assessment and Plan continue present medical regimen, troponin negative Problem Qualifiers (1) CHF (congestive heart failure): Qualified Codes: I50.32 - Chronic diastolic (congestive) heart failure Juaquin Calvillo Jul 16, 2017 08:42
[2017-07-16 08:45] LABS: BICARBONATE 38.4 MEQ/L (21.0-32.0); MAGNESIUM 2.5 MG/DL (1.5-2.5); POTASSIUM 4.3 MEQ/L (3.5-5.1)
[2017-07-16] MEDS: ASPIRIN 325 MG TAB PO SCH (09:54)
[2017-07-16] MEDS: BUMETANIDE INJ 1 MG/4 ML VIAL IV PUSH SCH (09:54)
[2017-07-16] MEDS: AMIODARONE 200 MG TAB PO SCH ×2 (09:54→20:40)
[2017-07-16] MEDS: HEPARIN SODIUM - SQ 10,000 UNITS/ML VIAL SQ SCH ×2 (09:54→20:39)
[2017-07-16] MEDS: METOPROLOL TARTRATE 25 MG TAB PO SCH ×2 (09:55→20:39)
[2017-07-16] MEDS: FAMOTIDINE 20 MG TAB PO SCH ×2 (09:55→20:39)
[2017-07-16] MEDS: TAMSULOSIN HCL 0.4 MG CAP PO SCH (09:55)
[2017-07-16] MEDS: POTASSIUM CHLORIDE 20 MEQ CONTROLLED RELEASE TAB PO SCH ×3 (09:55→17:30)
[2017-07-16] MEDS: ALLOPURINOL 300 MG TAB PO SCH (09:55)
[2017-07-16] MEDS: PREGABALIN 25 MG CAP PO SCH ×3 (09:55→17:30)
[2017-07-16] MEDS: ISOSORBIDE MONONITRATE 30 MG TAB PO SCH (09:55)
[2017-07-16] MEDS: CLOPIDOGREL 75 MG TAB PO SCH (09:55)
[2017-07-16] MEDS: SODIUM CHLORIDE 0.9% FLUSH 10 ML FLUSH IV FLUSH SCH ×2 (09:56→20:40)
[2017-07-16] MEDS ORDERED: MAGNESIUM HYDROXIDE SUSP 30 ML CUP PO PRN (10:00)
[2017-07-16] MEDS: DOCUSATE SODIUM 100 MG CAP PO SCH ×2 (10:11→20:39)
--- NOTE | 2017-07-16 16:44 | HHI.PR ---
Subjective Remarks Pt weight down to 107kg today No new complaints Pt overall feeling better today Objective Vitals Vital Signs Date Time Temp Pulse Resp B/P (MAP) Pulse Ox O2 Delivery O2 Flow Rate FiO2 07/16/17 16:15 98.6 61 18 112/58 (76) 94 07/16/17 12:00 97.6 66 20 118/66 (83) 96 07/16/17 08:00 97.7 64 20 116/68 (84) 95 07/16/17 08:00 66 07/16/17 08:00 Nasal Cannula 3.00 07/16/17 04:00 98.4 64 24 127/68 (87) 95 07/16/17 00:00 98.4 75 22 114/63 (80) 94 07/15/17 22:00 3.00 07/15/17 20:00 98.5 71 19 130/72 (91) 95 07/15/17 20:00 58 07/15/17 18:58 98.3 60 18 109/61 (77) 94 07/15/17 17:27 112/74 (87) Result Diagram: 07/16/17 0615 07/16/17 0615 Other Results Laboratory Tests Test 07/15/17 06:50 07/16/17 06:15 White Blood Count 5.7 TH/MM3 5.4 TH/MM3 Red Blood Count 4.47 MIL/MM3 4.46 MIL/MM3 Hemoglobin 12.4 GM/DL 12.2 GM/DL Hematocrit 38.2 % 38.2 % Mean Corpuscular Volume 85.5 FL 85.7 FL Mean Corpuscular Hemoglobin 27.8 PG 27.4 PG Mean Corpuscular Hemoglobin Concent 32.5 % 31.9 % Red Cell Distribution Width 17.0 % 16.9 % Platelet Count 181 TH/MM3 186 TH/MM3 Mean Platelet Volume 8.5 FL 8.6 FL Neutrophils (%) (Auto) 74.0 % 69.6 % Lymphocytes (%) (Auto) 11.9 % 15.4 % Monocytes (%) (Auto) 10.1 % 10.9 % Eosinophils (%) (Auto) 3.1 % 3.3 % Basophils (%) (Auto) 0.9 % 0.8 % Neutrophils # (Auto) 4.2 TH/MM3 3.7 TH/MM3 Lymphocytes # (Auto) 0.7 TH/MM3 0.8 TH/MM3 Monocytes # (Auto) 0.6 TH/MM3 0.6 TH/MM3 Eosinophils # (Auto) 0.2 TH/MM3 0.2 TH/MM3 Basophils # (Auto) 0.1 TH/MM3 0.0 TH/MM3 CBC Comment DIFF FINAL DIFF FINAL Differential Comment Blood Urea Nitrogen 24 MG/DL 24 MG/DL Creatinine 1.46 MG/DL 1.58 MG/DL Random Glucose 72 MG/DL 73 MG/DL Calcium Level 8.8 MG/DL 9.1 MG/DL Magnesium Level 2.6 MG/DL 2.5 MG/DL Sodium Level 138 MEQ/L 138 MEQ/L Potassium Level 4.1 MEQ/L 4.3 MEQ/L Chloride Level 99 MEQ/L 98 MEQ/L Carbon Dioxide Level 34.0 MEQ/L 38.4 MEQ/L Anion Gap 5 MEQ/L 2 MEQ/L Estimat Glomerular Filtration Rate 50 ML/MIN 45 ML/MIN Troponin I LESS THAN 0.02 NG/ML Imaging Last Impressions Chest X-Ray 07/13/17 0718 Signed Impressions: Service Date/Time: Thursday, July 13, 2017 07:46 - CONCLUSION: 1. Cardiomegaly. 2. Elevation of the right hemidiaphragm with minimal right basilar effusion and diffuse interstitial changes. 3. Stable compared to previous examination dated 06/14/17. Santos Ruvalcaba MD Gall Bladder Ultrasound 07/13/17 0000 Signed Impressions: Service Date/Time: Thursday, July 13, 2017 07:47 - CONCLUSION: 1. The liver is at the upper limits of normal in size. 2. No gallstones are identified. No significant gallbladder wall thickening or pericolic cystic fluid. Santos Ruvalcaba MD Objective Remarks General: NAD, AAOx3 Chest: CTA Cardiac: Regular Abd: +BS, soft mild suprapubic tenderness Ext: Minimal edema bilaterally A/P Problem List: (1) Chest pain ICD Codes: R07.9 - Chest pain Status: Acute Plan: - Pt is a 56 y/o male admitted with chest pain that began early this morning and weight gain over the last 2-3 days He has hx of diastolic CHF. Pt states that he has been on his Bumex 2mg in AM and 1mg in PM and occasionally an extra dose of Bumex 1mg in the afternoon - He reports that he has had a weight gain of around 20lbs over the last few days. - Symptoms are likely related to some volume overloaded. - He is typically on 2L of supplemental O2 at home. - Pt was r/o for ACS with serial CE - Cont. IV Bumex 1mg BID and monitor BMP - Duoneb treatment - Pt weighed 119kg on 07/14 which is 261lbs which is much higher than his baseline weight of 245lbs - Pt weight 109kg on 07/15. Pt weighed 107Kb on 07/16 - Monitor I&Os - Cr increased slightly to 1.58 on 07/16 - CT Abdomen/pelvis (07/15) was negative. - Pt overall improving - Change IV Bumex to PO Bumex 1mg BID - Repeat labs in AM - Supportive care - Anticipate d/c in AM - DVT prophylaxis with Heparin (2) CHF (congestive heart failure) ICD Codes: I50.9 - Congestive heart failure Status: Acute Plan: - See above (3) Hypertension ICD Codes: I10 - Hypertension Status: Chronic Plan: - Home meds resumed (4) Hyperlipemia ICD Codes: E78.5 - Hyperlipidemia Status: Chronic Plan: - Home meds resumed (5) CKD (chronic kidney disease) stage 3, GFR 30-59 ml/min ICD Codes: N18.3 - Chronic kidney disease, stage 3 (moderate) Status: Chronic Assessment and Plan Patient examined. Assessment and plan formulated with Judy Marinelli PA-C. I agree with the above. Problem Qualifiers (1) CHF (congestive heart failure): Qualified Codes: I50.32 - Chronic diastolic (congestive) heart failure Judy Marinelli Jul 16, 2017 16:44 Sunny Jenkins DO Jul 17, 2017 23:21
[2017-07-16] MEDS ORDERED: BISACODYL 10 MG SUPP RECTAL PRN (17:00)
[2017-07-16] MEDS: BUMETANIDE 1 MG TAB PO SCH (17:30)
[2017-07-16] MEDS: traMADol HCL 50 MG TAB PO PRN (20:45)
[2017-07-17] VITALS: BP 113/56; PULSE 63; RESP 21; TEMP 97.8; O2SAT 95
[2017-07-17 04:00] VITALS: BP 103/68; PULSE 61; RESP 18; TEMP 97.8; O2SAT 93
[2017-07-17] MEDS: NITROGLYCERIN 2% OINT 1 GM PACKET TOP SCH ×2 (05:06→13:30)
[2017-07-17] MEDS: MORPHINE SULFATE 4 MG/ML INJ IV PUSH PRN (05:09)
--- NOTE | 2017-07-17 07:26 | HHI.DCPOC ---
Discharge Care Plan Diagnosis: (1) CHF (congestive heart failure) (2) Chest pain (3) CKD (chronic kidney disease) stage 3, GFR 30-59 ml/min (4) BPH (benign prostatic hypertrophy) with urinary obstruction Goals to Promote Your Health * To prevent worsening of your condition and complications * To maintain your health at the optimal level Directions to Meet Your Goals Take your medications as prescribed Follow your dietary instruction Follow activity as directed Keep your appointments as scheduled Take your immunizations and boosters as scheduled If your symptoms worsen call your PCP, if no PCP go to Urgent Care Center or Emergency Room Smoking is Dangerous to Your Health. Avoid second hand smoke Call the 24-hour hour crisis hotline for domestic abuse at [place] Germain Jul 17, 2017 07:26 Sunny Jenkins DO Jul 17, 2017 23:21
--- NOTE | 2017-07-17 07:28 | HHI.DS ---
Discharge Summary Admission Date Jul 14, 2017 at 10:35 Discharge Date: Jul 17, 2017 Admitting Diagnosis CP R/O ME (1) CHF (congestive heart failure) ICD Codes: I50.9 - Congestive heart failure Status: Acute (2) Chest pain ICD Codes: R07.9 - Chest pain Status: Acute (3) Hypertension ICD Codes: I10 - Hypertension Status: Chronic (4) Hyperlipemia ICD Codes: E78.5 - Hyperlipidemia Status: Chronic (5) CKD (chronic kidney disease) stage 3, GFR 30-59 ml/min ICD Codes: N18.3 - Chronic kidney disease, stage 3 (moderate) Status: Chronic Consultants Cardiology Dr. Brice Procedures none Brief History Mr. Rodriguez is a 56 y/o WM with significant cardiac history to include ME 9, CHF with EF 50% and grade 1 diastolic dysfunction on echo from 02/2016, CAD s/p CABG 6, AICD, hypertension, and COPD. Pt reported to the ED at [facility] on 07/13/17 with complaints of chest pain and weight gain of 20lbs in the last 2-3 days. He has noted some increased abdominal girth and LE edema. He has been taking his Bumex 2mg in the morning and 1mg at night and over the last few days he has even been taking 1mg in the middle of the day to try to get more fluid off. He has had some chest pain which is consistent with the pain he gets with he has fluid retention. The chest pain is substernal pressure-like sensation which has been and started at about 4am this morning. He took his own NTG and EMS gave him ASA 162 and NGT spray x 2 with some improvement. He had nitro paste placed and pt was r/o with three sets of CE. Pt denies any palpitations, dizziness, weakness. He overall feels tired but is otherwise feeling more stable. He states that his chest pain is improving compared to prior to admission. CBC/BMP: 07/16/17 0615 07/16/17 0615 Significant Findings Laboratory Tests Test 07/15/17 06:50 07/16/17 06:15 Red Blood Count 4.47 MIL/MM3 (4.50-5.90) 4.46 MIL/MM3 (4.50-5.90) Hemoglobin 12.4 GM/DL (13.0-17.0) 12.2 GM/DL (13.0-17.0) Hematocrit 38.2 % (39.0-51.0) 38.2 % (39.0-51.0) Neutrophils (%) (Auto) 74.0 % (16.0-70.0) Monocytes (%) (Auto) 10.1 % (0.0-8.0) 10.9 % (0.0-8.0) Lymphocytes # (Auto) 0.7 TH/MM3 (1.0-4.8) 0.8 TH/MM3 (1.0-4.8) Blood Urea Nitrogen 24 MG/DL (7-18) 24 MG/DL (7-18) Creatinine 1.46 MG/DL (0.60-1.30) 1.58 MG/DL (0.60-1.30) Random Glucose 72 MG/DL (74-106) 73 MG/DL (74-106) Magnesium Level 2.6 MG/DL (1.5-2.5) Carbon Dioxide Level 34.0 MEQ/L (21.0-32.0) 38.4 MEQ/L (21.0-32.0) Estimat Glomerular Filtration Rate 50 ML/MIN (>89) 45 ML/MIN (>89) Troponin I LESS THAN 0.02 NG/ML Mean Corpuscular Hemoglobin Concent 31.9 % (32.0-36.0) Anion Gap 2 MEQ/L (5-15) PE at Discharge General: NAD, AAOx3 Chest: CTA Cardiac: Regular Abd: +BS, soft mild suprapubic tenderness Ext: Minimal edema bilaterally Hospital Course Chest pain - Pt is a 56 y/o male admitted with chest pain that began early this morning and weight gain over the last 2-3 days He has hx of diastolic CHF. Pt states that he has been on his Bumex 2mg in AM and 1mg in PM and occasionally an extra dose of Bumex 1mg in the afternoon - He reports that he has had a weight gain of around 20lbs over the last few days. - Symptoms are likely related to some volume overloaded. - He is typically on 2L of supplemental O2 at home. - Pt was r/o for ACS with serial CE - Cont. IV Bumex 1mg BID and monitor BMP - Duoneb treatment - Pt weighed 119kg on 07/14 which is 261lbs which is much higher than his baseline weight of 245lbs - Pt weight 109kg on 07/15. Pt weighed 107Kb on 07/16 - Monitor I&Os - Cr increased slightly to 1.58 on 07/16 - CT Abdomen/pelvis (07/15) was negative. - Pt overall improving - Change IV Bumex to PO Bumex 1mg BID - Supportive care - DVT prophylaxis with Heparin CHF (congestive heart failure)- acute exacerbation on chronic dystocic CHF - See above Hypertension - Home meds resumed Hyperlipemia - Home meds resumed CKD (chronic kidney disease) stage 3, GFR 30-59 ml/min Chronic Pt Condition on Discharge: Stable Discharge Disposition: Discharge Home Discharge Instructions DIET: Follow Instructions for: Heart Healthy Diet Activities you can perform: Regular-No Restrictions Follow up Referrals: Cardiology - [address] Brice PCP Follow-up - [address] [place] Continued Medications: Albuterol Powder Inh (Proair Respiclick Inh) 90 Mcg/Act Aerp 2 PUFF INH Q6H PRN for SHORTNESS OF BREATH, #1 INHALER 0 Refills Allopurinol (Allopurinol) 100 Mg Tab 300 MG PO DAILY for Gout, #30 TAB 0 Refills Alprazolam (Alprazolam) 0.25 Mg Tab 0.25 MG PO TID PRN for ANXIETY, TAB 0 Refills Amiodarone (Amiodarone) 200 Mg Tab 200 MG PO BID for Regulate Heart Beat, #30 TAB [address] (Aspirin EC) 81 Mg Tabdr 81 MG PO DAILY, TAB 0 Refills Bumetanide (Bumetanide) 2 Mg Tab 2 MG PO DAILY, TAB 0 Refills Clopidogrel (Plavix) 75 Mg Tab 75 MG PO DAILY for Blood Clot Prevention, #30 TAB 0 Refills Ipratropium Neb (Ipratropium Neb) 0.5 Mg/2.5 Ml Amp 0.5 MG NEB TID NEB PRN for SOB/WHEEZING, NEBULE 0 Refills Isosorbide Mononitrate ER (Isosorbide Mononitrate ER) 30 Mg Adolph 30 MG PO DAILY for Prevent Chest Pain, #30 TAB 0 Refills Metoprolol Tartrate (Metoprolol Tartrate) 25 Mg Tab 25 MG PO BID, #60 TAB 0 Refills Nitroglycerin SL (Nitroglycerin SL) 0.4 Mg Subl 0.4 MG SL DIRECTED PRN for CHEST PAIN, #100 TAB.SL 0 Refills ONE TABLET UNDER THE TONGUE NEEDED FOR CHEST PAIN, MAY REPEAT EVERY FIVE MINUTES FOR A TOTAL OF 3 DOSES OR CALL 911 IF NO RELIEF Potassium Chloride ER (K-Tab) 20 Meq Tab 20 MEQ PO TID for Electrolyte Replacement, #60 TAB 0 Refills Pregabalin (Lyrica) 50 Mg Cap 50 MG PO TID, #90 CAP 0 Refills Ranitidine (Ranitidine) 300 Mg Tab 150 MG PO DAILY for Heartburn Management, #30 TAB 0 Refills Tamsulosin (Tamsulosin) 0.4 Mg Cap 0.4 MG PO DAILY for Manage Prostate Problems, #30 CAP 0 Refills Tramadol (Tramadol) 50 Mg Tab 50 MG PO Q4H PRN for PAIN SCALE 1-10, TAB 0 Refills Additional Information Patient examined. Assessment and plan formulated with Tennille Germain PA-C. I agree with the above. Tennille Germain Jul 17, 2017 07:28 Sunny Jenkins DO Jul 17, 2017 23:21
[2017-07-17 08:00] VITALS: BP 112/66; PULSE 86; RESP 18; TEMP 98.2; O2SAT 95
[2017-07-17] MEDS: ISOSORBIDE MONONITRATE 30 MG TAB PO SCH (09:00)
[2017-07-17] MEDS: PREGABALIN 25 MG CAP PO SCH ×2 (09:00→13:29)
[2017-07-17] MEDS: CLOPIDOGREL 75 MG TAB PO SCH (09:00)
[2017-07-17] MEDS: FAMOTIDINE 20 MG TAB PO SCH (09:00)
[2017-07-17] MEDS: ALLOPURINOL 300 MG TAB PO SCH (09:00)
[2017-07-17] MEDS: AMIODARONE 200 MG TAB PO SCH (09:00)
[2017-07-17] MEDS: DOCUSATE SODIUM 100 MG CAP PO SCH (09:00)
[2017-07-17] MEDS: BUMETANIDE 1 MG TAB PO SCH (09:01)
[2017-07-17] MEDS: ASPIRIN 325 MG TAB PO SCH (09:01)
[2017-07-17] MEDS: POTASSIUM CHLORIDE 20 MEQ CONTROLLED RELEASE TAB PO SCH ×2 (09:01→13:29)
[2017-07-17] MEDS: METOPROLOL TARTRATE 25 MG TAB PO SCH (09:01)
[2017-07-17] MEDS: SODIUM CHLORIDE 0.9% FLUSH 10 ML FLUSH IV FLUSH SCH (09:02)
[2017-07-17] MEDS: HEPARIN SODIUM - SQ 10,000 UNITS/ML VIAL SQ SCH (09:02)
[2017-07-17] MEDS: ACETAMINOPHEN 500 MG CPLT PO PRN (09:08)
[2017-07-17] MEDS: TAMSULOSIN HCL 0.4 MG CAP PO SCH (09:08)
[2017-07-17 09:49] VITALS: O2SAT 95
[2017-07-17 09:56] LABS: POTASSIUM 4.5 MEQ/L (3.5-5.1)
[2017-07-17 12:00] VITALS: BP 99/59; PULSE 67; RESP 18; TEMP 97.6; O2SAT 96
[2017-07-17] MEDS ORDERED: SOD PHOSPHATE/SOD BIPHOSPHATE (ADULT) ENEMA 133ML RECTAL ONE (12:00)
--- NOTE | 2017-07-17 12:30 | RADRPT ---
EXAM DATE/TIME: 07/17/2017 12:11 [facility] COMPARISON: ABDOMEN KUB ONLY, February 16, 2016, 14:27. INDICATIONS : Distention and constipation. MEDICAL HISTORY : Gastroesophageal reflux disease. Hypercholesterolemia. Hypertension. Heart attack. SURGICAL HISTORY : Tonsillectomy. Pacemaker. CABG. Ablation. Sinus surgery. ENCOUNTER: Subsequent ACUITY: 4 - 6 days PAIN SCORE: 0/10 LOCATION: Bilateral Abdomen FINDINGS: Supine view of the abdomen was performed. The abdominal bowel gas pattern is normal. No abnormal ma sses, calcifications, or organomegaly is seen. The osseous structures are unremarkable. Persistent e levation right hemidiaphragm. CONCLUSION: Stable benign abdomen Eddi Duarte MD on July 17, 2017 at 12:27 Board Certified Radiologist. This report was verified electronically.
== END 2017-07-17 14:26 | disposition home or self-care (01) ==
LOC: NEPE 07:14 → NEDA 09:34 → UNDOADMOB 09:36 → NEDA 09:36 → NEPFCDU 11:41 → NEDA 11:41 → OBSVTOIN 07-14 10:35 → INTOOBSV 07-14 10:35 → N04A 07-15 18:47 → NEPFCDU 07-15 18:47 → N04A 07-15 18:47 → UNDODISOB 07-17 14:26
PROVIDERS: ADMIT Hospitalist; ATTEND Hospitalist
DX: I13.0 Hypertensive heart and chronic kidney disease with heart failure and stage 1 through stage 4 chronic kidney disease, or unspecified chronic kidney disease (principal); I50.33 Acute on chronic diastolic (congestive) heart failure; E11.22 Type 2 diabetes mellitus with diabetic chronic kidney disease; N18.3 Chronic kidney disease, stage 3 (moderate); I47.2 Ventricular tachycardia; G20 Parkinson's disease; J44.1 Chronic obstructive pulmonary disease with (acute) exacerbation; I25.2 Old myocardial infarction; I25.10 Atherosclerotic heart disease of native coronary artery without angina pectoris; I25.82 Chronic total occlusion of coronary artery; M19.90 Unspecified osteoarthritis, unspecified site; F41.9 Anxiety disorder, unspecified; E78.00 Pure hypercholesterolemia, unspecified; K21.9 Gastro-esophageal reflux disease without esophagitis; G47.00 Insomnia, unspecified; N40.1 Benign prostatic hyperplasia with lower urinary tract symptoms; M10.9 Gout, unspecified; E87.70 Fluid overload, unspecified; E66.9 Obesity, unspecified; F32.9 Major depressive disorder, single episode, unspecified; Z99.81 Dependence on supplemental oxygen; Z95.1 Presence of aortocoronary bypass graft; Z87.442 Personal history of urinary calculi; Z95.810 Presence of automatic (implantable) cardiac defibrillator; Z91.11 Patient's noncompliance with dietary regimen; Z87.891 Personal history of nicotine dependence; Z23 Encounter for immunization; Z79.01 Long term (current) use of anticoagulants; Z79.82 Long term (current) use of aspirin
CPT/HCPCS: 71010; 74000; 74176; 76705; 80048; 80053; 82550; 83690; 83735; 83880; 84484; 85025; 85610; 85730; 90732; 93005; 96372; 96374; 96375; 97161; 99285; G0008; G0009; G0378; J1170; J1644; J2270; J2405; Q2038; 90471; 90472; 90686

== ENCOUNTER 2017-09-10 10:47 | Inpatient (IN) | payer OTHER ==
[~2017-09-10] VITALS: Ht 175.3 cm; Wt 112.0 kg
[2017-09-10] VITALS (9 sets, daily range): BP systolic 115–167; BP diastolic 62–104; PULSE 61–78; RESP 17–20; TEMP 97.5–98; O2SAT 91–97
--- NOTE | 2017-09-10 11:10 | PD ---
HPI Chief Complaint: Cardiac Complaint Time Seen by Provider: 11:03 Travel History International Travel<30 days: No Contact w/Intl Traveler<30days: No Traveled to known affect area: No History of Present Illness HPI 56 YO M with PMH of CKD, COPD, CHF, CAD, arrhythmia s/p CABG and AICD implantation on 2L NC at home presents to the ED for evaluation of a "couple days" history of sporadic CP. Onset gradual, variable duration. Patient states the pain became steady today with radiation to the back, left neck and left arm, rated 9/10 which prompted his visit today. He states the pain is worse with exertion. He also complains of dizziness, nausea and shortness of breath. Dizziness worsened by change in position. He states his shortness of breath is worsened with exertion and lying flat. Also complains of ~12 lb weight gain in the last 2 weeks. He endorses compliance with this daily medications. He did not treat at home with nitro today. He is a nonsmoker, nondrinker. He is followed by Dr. Brice, cardiology. He states that he was shocked "a couple weeks ago" by his [employer]tronic AICD. He states he's has an appointment to have it interrogated tomorrow. PFSH Past Medical History Hx Anticoagulant Therapy: Yes (PLAVIX , ASA) Arthritis: Yes Asthma: No Autoimmune Disease: No Blood Disorders: No Anxiety: Yes Depression: No Heart Rhythm Problems: No Cancer: No Cardiac Catheterization: Yes (X9) Cardiovascular Problems: Yes High Cholesterol: No Chemotherapy: No Chest Pain: Yes Congestive Heart Failure: Yes COPD: No Cerebrovascular Accident: No Coronary Artery Disease: Yes Diabetes: No Diminished Hearing: No Endocrine: No Gastrointestinal Disorders: Yes (GERD) GERD: Yes Gout: Yes Genitourinary: Yes (CHRONIC KIDNEY DISEASE) Headaches: No Hepatitis: No Hiatal Hernia: No Heparin Induced Thrombocytopen: No Hypertension: Yes Immune Disorder: No Inguinal Hernia: Yes Implanted Vascular Access Dvce: Yes Insomnia: Yes Kidney Stones: Yes Musculoskeletal: No Neurologic: No Parkinson's Disease: Yes Psychiatric: Yes Reproductive: No Respiratory: Yes Migraines: No Myocardial Infarction: Yes Radiation Therapy: No Renal Failure: No Seizures: No Shingles: Yes Sickle Cell Disease: No Sleep Apnea: No Thyroid Disease: No Triglycerides - High: Yes Ulcer: No Past Surgical History Abdominal Surgery: Yes AICD: Yes Appendectomy: Yes Arteriovenous Shunt: No Body Medical Devices: pacer aicd Cardiac Surgery: Yes (pacer aicd, ABLATION) Cholecystectomy: Yes Coronary Artery Bypass Graft: Yes (X6) Coronary Stent: Yes (X1) Ear Surgery: No Endocrine Surgery: No Eye Surgery: No Genitourinary Surgery: No Gynecologic Surgery: No Insulin Pump: No Joint Replacement: No Neurologic Surgery: No Oral Surgery: No Pacemaker: Yes (medtronic) Thoracic Surgery: No Tonsillectomy: Yes Valve Replacement: Yes Other Surgery: Yes (R INGUNIAL HERNIA REPAIR) Family History Family Hypercholesterolemia: Yes Social History Alcohol Use: No Tobacco Use: No (FORMER) Substance Use: No Allergies-Medications (Allergen,Severity, Reaction): Coded Allergies: Sulfa (Sulfonamide Antibiotics) (Verified Allergy, Severe, HIVES, 07/13/17) oxycodone (Verified Allergy, Severe, RASH, 07/13/17) lorazepam (Verified Adverse Reaction, Severe, Confusion, 07/13/17) MAKES PT "CRAZY" Reported Meds & Prescriptions Reported Meds & Active Scripts Active Reported Allopurinol 300 Mg Tab 300 Mg PO DAILY Bumetanide 2 Mg Tab 2 Mg PO 2-3 TIMES A DAY PRN Alprazolam 0.25 Mg Tab 0.25 Mg PO TID PRN Amiodarone (Amiodarone HCl) 200 Mg Tab 200 Mg PO BID Aspirin EC (Aspirin) 81 Mg Tabdr 81 Mg PO DAILY Plavix (Clopidogrel Bisulfate) 75 Mg Tab 75 Mg PO DAILY Nitroglycerin SL (Nitroglycerin) 0.4 Mg Subl 0.4 Mg SL DIRECTED PRN ONE TABLET UNDER THE TONGUE NEEDED FOR CHEST PAIN, MAY REPEAT EVERY FIVE MINUTES FOR A TOTAL OF 3 DOSES OR CALL 911 IF NO RELIEF K-Tab (Potassium Chloride) 20 Meq Tab 20 Meq PO TID Isosorbide Mononitrate ER (Isosorbide Mononitrate) 30 Mg [place] 30 Mg PO DAILY Metoprolol Tartrate 25 Mg Tab 25 Mg PO BID Lyrica (Pregabalin) 50 Mg Cap 50 Mg PO TID Ranitidine (Ranitidine HCl) 300 Mg Tab 300 Mg PO DAILY Tamsulosin (Tamsulosin HCl) 0.4 Mg Cap 0.4 Mg PO DAILY Tramadol (Tramadol HCl) 50 Mg Tab 50 Mg PO QID PRN Ipratropium Neb (Ipratropium [place]) 0.5 Mg/2.5 Ml Amp 0.5 Mg NEB TID NEB PRN Proair Respiclick Inh (Albuterol Sulfate) 90 Mcg/Act Aerp 2 Puff INH Q6H PRN Physical Exam Narrative GENERAL: Well-nourished, well-developed nontoxic appearing white male in no acute distress. SKIN: Focused skin assessment warm/dry. Well healed midline scar of the chest without signs of infection. HEAD: Normocephalic. EYES: No scleral icterus. No injection or drainage. NECK: Supple, trachea midline. No JVD or lymphadenopathy. CARDIOVASCULAR: Regular rate and rhythm without murmurs, gallops, or rubs. CHEST: Nontender throughout without deformity or crepitus. AICD implanted in the left chest, nontender, without signs of infection. Point tenderness over the left mid-parasternal area. RESPIRATORY: Breath sounds equal bilaterally. Diminished breath sounds in the bases bilaterally, mild expiratory wheezing on the left. No accessory muscle use. GASTROINTESTINAL: Abdomen soft, non-tender, nondistended. Active bowel sounds. MUSCULOSKELETAL: No cyanosis, or edema. NEUROLOGICAL: Awake and alert. Cranial nerves II through XII intact. Motor and sensory grossly within normal limits. Five out of 5 muscle strength in all muscle groups. Normal speech. BACK: Nontender without obvious deformity. No CVA tenderness. Data Data Last Documented VS Vital Signs Date Time Temp Pulse Resp B/P (MAP) Pulse Ox O2 Delivery O2 Flow Rate FiO2 09/10/17 12:27 63 18 119/73 (88) 96 Nasal Cannula 2.00 09/10/17 10:48 98.0 Orders Orders Electrocardiogram (09/10/17 11:12) B-Type Natriuretic Peptide (09/10/17 11:12) Ckmb (Isoenzyme) Profile (09/10/17 11:12) Complete Blood Count With Diff (09/10/17 11:12) Comprehensive Metabolic Panel (09/10/17 11:12) Magnesium (Mg) (09/10/17 11:12) Prothrombin Time / Inr (Pt) (09/10/17 11:12) Act Partial Throm Time (Ptt) (09/10/17 11:12) Troponin I (09/10/17 11:12) Chest, Single Ap (09/10/17 11:12) Ecg Monitoring (09/10/17 11:12) Bilateral Bp Monitoring (09/10/17 11:12) Iv Access Insert/Monitor (09/10/17 11:12) Oximetry (09/10/17 11:12) Sodium Chloride 0.9% Flush (Ns Flush) (09/10/17 11:15) Ct Brain W/O Iv Contrast(Rout) (09/10/17 ) Nitroglycerin Sl (Nitrostat Sl) (09/10/17 11:30) Aspirin (Aspirin) (09/10/17 11:30) Ondansetron Inj (Zofran Inj) (09/10/17 12:00) Troponin I (09/10/17 14:24) Ckmb (Isoenzyme) Profile (09/10/17 14:24) Urinalysis - C+S If Indicated (09/10/17 13:15) Bumetanide (Bumetanide) (09/10/17 14:15) Isosorbide Mononitrate (Imdur) (09/10/17 16:00) Labs Laboratory Tests Test 09/10/17 11:24 09/10/17 13:49 09/10/17 14:30 White Blood Count 7.7 TH/MM3 Red Blood Count 5.05 MIL/MM3 Hemoglobin 14.0 GM/DL Hematocrit 42.7 % Mean Corpuscular Volume 84.4 FL Mean Corpuscular Hemoglobin 27.7 PG Mean Corpuscular Hemoglobin Concent 32.8 % Red Cell Distribution Width 15.8 % Platelet Count 217 TH/MM3 Mean Platelet Volume 8.4 FL Neutrophils (%) (Auto) 81.5 % Lymphocytes (%) (Auto) 9.6 % Monocytes (%) (Auto) 6.9 % Eosinophils (%) (Auto) 0.8 % Basophils (%) (Auto) 1.2 % Neutrophils # (Auto) 6.3 TH/MM3 Lymphocytes # (Auto) 0.7 TH/MM3 Monocytes # (Auto) 0.5 TH/MM3 Eosinophils # (Auto) 0.1 TH/MM3 Basophils # (Auto) 0.1 TH/MM3 CBC Comment DIFF FINAL Differential Comment Prothrombin Time 10.7 SEC Prothromb Time International Ratio 1.1 RATIO Activated Partial Thromboplast Time 26.4 SEC Blood Urea Nitrogen 26 MG/DL Creatinine 1.60 MG/DL Random Glucose 110 MG/DL Total Protein 7.6 GM/DL Albumin 3.8 GM/DL Calcium Level 9.2 MG/DL Magnesium Level 2.5 MG/DL Alkaline Phosphatase 88 U/L Aspartate Amino Transf (AST/SGOT) 17 U/L Alanine Aminotransferase (ALT/SGPT) 24 U/L Total Bilirubin 0.3 MG/DL Sodium Level 141 MEQ/L Potassium Level 4.2 MEQ/L Chloride Level 102 MEQ/L Carbon Dioxide Level 33.6 MEQ/L Anion Gap 5 MEQ/L Estimat Glomerular Filtration Rate 45 ML/MIN Total Creatine Kinase 51 U/L 43 U/L Troponin I LESS THAN 0.02 NG/ML LESS THAN 0.02 NG/ML B-Type Natriuretic Peptide 103 PG/ML Urine Color YELLOW Urine Turbidity CLEAR Urine pH 6.0 Urine Specific [place] 1.012 Urine Protein NEG mg/dL Urine Glucose (UA) NEG mg/dL Urine Ketones NEG mg/dL Urine Occult Blood NEG Urine Nitrite NEG Urine Bilirubin NEG Urine Urobilinogen LESS THAN 2.0 MG/DL Urine Leukocyte Esterase NEG Urine RBC LESS THAN 1 /hpf Urine Hyaline Casts 25 /lpf Urine Mucus FEW /lpf Microscopic Urinalysis Comment CULT NOT INDICATED MDM Medical Decision Making Medical Screen Exam Complete: Yes Emergency Medical Condition: Yes Differential Diagnosis CHF exacerbation versus COPD exacerbation versus CP versus angina versus ACS versus other Narrative Course 56-year-old male with PMH of anxiety, CKD, COPD, CHF, CAD, arrhythmia status post CABG and AICD implantation on 2 L nasal cannula at home, on Plavix presents the ED for evaluation of couple days history of sporadic chest pain. Patient states the pain became steady today with radiation to the back, neck and arm which prompted his visit. Also complains of dizziness, nausea, SOB. Also complains of a 12 pound weight gain in the last 2 weeks. He endorses compliance with his daily medications but did not treat at home with nitroglycerin today. States that he was shocked by his ACD "a couple weeks ago. " Followed by Dr. Brice, cardiology. Vitals reviewed. O2 sats 93-94 on 2 L nasal cannula. No focal neuro deficits. RRR without appreciable M/R/G. Lung sounds diminished in the bases bilaterally with mild end expiratory wheezing on the left. Abdomen soft and nontender. No CVA tenderness. No lower extremity edema. IV was established. Patient was administered ASA and nitro x 3. Call was placed to the Med[employer] rep for device interrogation. CBC: No leukocytosis or anemia noted. CMP: BUN 26, creatinine 1.6. Baseline per chart review. BNP: 103 Cardiac enzymes: Negative x 2. CXR: Compensated cardiomegaly otherwise negative per radiology read. CT brain: No acute findings in the brain UA: no culture indicated The [employer] repIam interrogated the device and noted an appropriate shock in July with an episode of V. tach rates around 200. Optivol fluid index trending upward but within normal limits. The patient was administered 2mg Bumetadine by mouth. I discussed the patient, workup and plan with Dr. Feldman. Dr. Feldman spoke with Dr. Brice by phone. He reports an anxiety component to the patient's somatic symptoms in the past. Dr. Feldman discussed the results of the workup with the patient. He was walk tested and O2 sats dropped into the low 80's. Due to his hypoxia and CP, we will admit further evaluation. Sariah Foy Sep 10, 2017 11:10
[2017-09-10] MEDS ORDERED: SODIUM CHLORIDE 0.9% FLUSH 10 ML FLUSH IVF PRN (11:15)
[2017-09-10] MEDS: NITROGLYCERIN 0.4 MG SL 25 TABS/BTL SL SCH ×3 (11:27→12:29)
[2017-09-10] MEDS ORDERED: ASPIRIN 325 MG TAB PO ONE (11:30)
[2017-09-10 11:32] LABS: HEMATOCRIT 42.7 % (39.0-51.0); HEMO FLAGS DIFF FINAL; MEAN CELL VOLUME 84.4 FL (80.0-100.0); MEAN CORPUSCULAR HEMOGLOBIN 27.7 PG (27.0-34.0); MEAN CORPUSCULAR HGB CONC 32.8 % (32.0-36.0); NEUT % 81.5 % (16.0-70.0); PLATELET COUNT 217 TH/MM3 (150-450); RED BLOOD COUNT 5.05 MIL/MM3 (4.50-5.90); RED CELL DISTRIBUTION WIDTH 15.8 % (11.6-17.2); WHITE BLOOD COUNT 7.7 TH/MM3 (4.0-11.0)
[2017-09-10 11:33] LABS: AUTOMATED NEUTROPHIL # 6.3 TH/MM3 (1.8-7.7); BASOPHIL # 0.1 TH/MM3 (0-0.2); BASOPHIL % 1.2 % (0.0-2.0); EOSINOPHIL # 0.1 TH/MM3 (0-0.4); EOSINOPHIL % 0.8 % (0.0-4.0); LYMPH % 9.6 % (9.0-44.0); LYMPHOCYTE # 0.7 TH/MM3 (1.0-4.8); MONO % 6.9 % (0.0-8.0)
[2017-09-10 11:43] LABS: APTT (PATIENT) 26.4 SEC (24.3-30.1); INTERNATIONAL NORMALIZED RATIO 1.1 RATIO; PROTHROMBIN TIME - PATIENT 10.7 SEC (9.8-11.6)
[2017-09-10] MEDS ORDERED: ALLO300T2 PO (11:48)
[2017-09-10] MEDS ORDERED: ONDANSETRON HCL 4 MG/2 ML VIAL IV PUSH ONE (12:00)
[2017-09-10 12:03] LABS: ALKALINE PHOSPHATASE 88 U/L (45-117); ALT (GPT) 24 U/L (12-78); ANION GAP 5 MEQ/L (5-15); AST (GOT) 17 U/L (15-37); BICARBONATE 33.6 MEQ/L (21.0-32.0); BLOOD UREA NITROGEN 26 MG/DL (7-18); CHLORIDE 102 MEQ/L (98-107); GLOMERULAR FILTRATION RATE 45 ML/MIN (>89); MAGNESIUM 2.5 MG/DL (1.5-2.5); POTASSIUM 4.2 MEQ/L (3.5-5.1); SODIUM (NA) 141 MEQ/L (136-145); TOTAL BILIRUBIN ADULT 0.3 MG/DL (0.2-1.0)
--- NOTE | 2017-09-10 12:09 | RADRPT ---
EXAM DATE/TIME: 09/10/2017 11:25 [facility] COMPARISON: CHEST SINGLE AP, July 13, 2017, 7:46. INDICATIONS : Chest pain. MEDICAL HISTORY : Chronic obstructive pulmonary disease. Congestive heart failure. SURGICAL HISTORY : CABG. Pacemaker. ENCOUNTER: Initial ACUITY: 1 day PAIN SCORE: 7/10 LOCATION: Left upper chest FINDINGS: Pacemaker and previous bypass. Marked elevation right hemidiaphragm atelectatic changes right base. The heart is minimally enlarged. The pulmonary vascularity is normal. There is no evidence for infilt rate or failure. The portion of the bony skeleton visualized is unremarkable. CONCLUSION: Compensated cardiomegaly otherwise negative aerated. Pacer, previous bypass. Anil Ruvalcaba MD FACR on September 10, 2017 at 12:06 Board Certified Radiologist. This report was verified electronically.
[2017-09-10 12:21] LABS: CREATINE KINASE 51 U/L (39-308)
--- NOTE | 2017-09-10 12:29 | RADRPT ---
EXAM DATE/TIME: 09/10/2017 12:15 [facility] COMPARISON: CT BRAIN W/O CONTRAST, April 18, 2017, 16:13. INDICATIONS : Dizziness. RADIATION DOSE: 38.63 CTDIvol (mGy) MEDICAL HISTORY : Cardiovascular disease. Hypertension. SURGICAL HISTORY : Pacemaker. ENCOUNTER: Initial ACUITY: 1 day PAIN SCALE: 0/10 LOCATION: cranial TECHNIQUE: Multiple contiguous axial images were obtained of the head. Using automated exposure control and adj ustment of the mA and/or kV according to patient size, radiation dose was kept as low as reasonably a chievable to obtain optimal diagnostic quality images. DICOM format image data is available electro nically for review and comparison. FINDINGS: CEREBRUM: The ventricles are normal for age. No evidence of midline shift, mass lesion, hemorrhage or acute in farction. No extra-axial fluid collections are seen. POSTERIOR FOSSA: The cerebellum and brainstem are intact. The 4th ventricle is midline. The cerebellopontine angle i s unremarkable. EXTRACRANIAL: The visualized portion of the orbits is intact. SKULL: The calvaria is intact. No evidence of skull fracture. CONCLUSION: 1. No acute findings in the brain. Rod Montes MD on September 10, 2017 at 12:26 Board Certified Radiologist. This report was verified electronically.
[2017-09-10] MEDS ORDERED: BUMETANIDE 1 MG TAB PO ONE (14:15)
[2017-09-10 14:27] LABS: BLOOD, URINE NEG (NEG); COMMENT (UR) CULT NOT INDICATED; CULTURE IF INDICATED CULT NOT INDICATED; GLUCOSE,URINE NEG (NEG); HYALINE CAST, URINE 25 /lpf (RARE); KETONE, URINE NEG (NEG); MUCUS URINE FEW /lpf (OCC); NITRITE,URINE NEG (NEG); URINE COLOR YELLOW (YELLW/STRAW)
[2017-09-10 15:08] LABS: CREATINE KINASE 43 U/L (39-308)
--- NOTE | 2017-09-10 15:42 | PD ---
Data Data Last Documented VS Vital Signs Date Time Temp Pulse Resp B/P (MAP) Pulse Ox O2 Delivery O2 Flow Rate FiO2 09/10/17 12:27 63 18 119/73 (88) 96 Nasal Cannula 2.00 09/10/17 10:48 98.0 Orders Orders Electrocardiogram (09/10/17 11:12) B-Type Natriuretic Peptide (09/10/17 11:12) Ckmb (Isoenzyme) Profile (09/10/17 11:12) Complete Blood Count With Diff (09/10/17 11:12) Comprehensive Metabolic Panel (09/10/17 11:12) Magnesium (Mg) (09/10/17 11:12) Prothrombin Time / Inr (Pt) (09/10/17 11:12) Act Partial Throm Time (Ptt) (09/10/17 11:12) Troponin I (09/10/17 11:12) Chest, Single Ap (09/10/17 11:12) Ecg Monitoring (09/10/17 11:12) Bilateral Bp Monitoring (09/10/17 11:12) Iv Access Insert/Monitor (09/10/17 11:12) Oximetry (09/10/17 11:12) Sodium Chloride 0.9% Flush (Ns Flush) (09/10/17 11:15) Ct Brain W/O Iv Contrast(Rout) (09/10/17 ) Nitroglycerin Sl (Nitrostat Sl) (09/10/17 11:30) Aspirin (Aspirin) (09/10/17 11:30) Ondansetron Inj (Zofran Inj) (09/10/17 12:00) Troponin I (09/10/17 14:24) Ckmb (Isoenzyme) Profile (09/10/17 14:24) Urinalysis - C+S If Indicated (09/10/17 13:15) Bumetanide (Bumetanide) (09/10/17 14:15) Isosorbide Mononitrate (Imdur) (09/10/17 16:00) Labs Laboratory Tests Test 09/10/17 11:24 09/10/17 13:49 09/10/17 14:30 White Blood Count 7.7 TH/MM3 Red Blood Count 5.05 MIL/MM3 Hemoglobin 14.0 GM/DL Hematocrit 42.7 % Mean Corpuscular Volume 84.4 FL Mean Corpuscular Hemoglobin 27.7 PG Mean Corpuscular Hemoglobin Concent 32.8 % Red Cell Distribution Width 15.8 % Platelet Count 217 TH/MM3 Mean Platelet Volume 8.4 FL Neutrophils (%) (Auto) 81.5 % Lymphocytes (%) (Auto) 9.6 % Monocytes (%) (Auto) 6.9 % Eosinophils (%) (Auto) 0.8 % Basophils (%) (Auto) 1.2 % Neutrophils # (Auto) 6.3 TH/MM3 Lymphocytes # (Auto) 0.7 TH/MM3 Monocytes # (Auto) 0.5 TH/MM3 Eosinophils # (Auto) 0.1 TH/MM3 Basophils # (Auto) 0.1 TH/MM3 CBC Comment DIFF FINAL Differential Comment Prothrombin Time 10.7 SEC Prothromb Time International Ratio 1.1 RATIO Activated Partial Thromboplast Time 26.4 SEC Blood Urea Nitrogen 26 MG/DL Creatinine 1.60 MG/DL Random Glucose 110 MG/DL Total Protein 7.6 GM/DL Albumin 3.8 GM/DL Calcium Level 9.2 MG/DL Magnesium Level 2.5 MG/DL Alkaline Phosphatase 88 U/L Aspartate Amino Transf (AST/SGOT) 17 U/L Alanine Aminotransferase (ALT/SGPT) 24 U/L Total Bilirubin 0.3 MG/DL Sodium Level 141 MEQ/L Potassium Level 4.2 MEQ/L Chloride Level 102 MEQ/L Carbon Dioxide Level 33.6 MEQ/L Anion Gap 5 MEQ/L Estimat Glomerular Filtration Rate 45 ML/MIN Total Creatine Kinase 51 U/L 43 U/L Troponin I LESS THAN 0.02 NG/ML LESS THAN 0.02 NG/ML B-Type Natriuretic Peptide 103 PG/ML Urine Color YELLOW Urine Turbidity CLEAR Urine pH 6.0 Urine Specific [place] 1.012 Urine Protein NEG mg/dL Urine Glucose (UA) NEG mg/dL Urine Ketones NEG mg/dL Urine Occult Blood NEG Urine Nitrite NEG Urine Bilirubin NEG Urine Urobilinogen LESS THAN 2.0 MG/DL Urine Leukocyte Esterase NEG Urine RBC LESS THAN 1 /hpf Urine Hyaline Casts 25 /lpf Urine Mucus FEW /lpf Microscopic Urinalysis Comment CULT NOT INDICATED MDM Supervised Visit with BHUPENDRA: Yes Narrative Course The history, exam, and medical decision-making in the associated midlevel provider note were completed with my assistance. I reviewed and agree with the findings presented. I attest that I had a [id number] encounter with the patient on the same day, and personally performed and documented my assessment and findings in the medical record. *My assessment and Findings: This is a 56-year-old male with a history of significant coronary artery disease and congestive heart failure who presents to the emergency department with chest discomfort. He also has multiple other complaints including dizziness and headache. He is followed by Dr. Brice. EKG is paced and demonstrates no acute ischemia. Here in the emergency department, blood work was obtained with 2 normal troponins. His AICD was interrogated which demonstrated an event in July but nothing recently. Initially I spoke to Dr. Brice and he was comfortable following up in clinic with him tomorrow. We started the patient to try to ambulate him and he took 2 steps and became near syncopal. When we placed him back on pulse oximetry he was 89% on room air. This is concerning for worsening congestive heart failure and I think he requires admission for diuresis and cardiology consultation. Diagnosis Primary Impression: Chest pain Qualified Codes: R07.9 - Chest pain, unspecified Referrals: Hernan Brice MD Additional Instruction: Rest, hydrate. Resume all at home medications as previously prescribed. Follow-up with the glove cuffer tomorrow as planned. Return to the ED for worsening symptoms or any urgent or emergent medical condition. Disposition: 01 DISCHARGE HOME Condition: Stable Miranda Feldman MD Sep 10, 2017 15:42
[2017-09-10] MEDS ORDERED: ISOSORBIDE MONONITRATE 30 MG TAB PO ONE (16:00)
[2017-09-10] MEDS ORDERED: BUMETANIDE 1 MG TAB PO PRN (21:30)
[2017-09-10] MEDS ORDERED: RESP: IPRATROPIUM 0.5 MG/2.5 ML NEB NEB PRN (21:30)
--- NOTE | 2017-09-10 21:52 | EKG ---
Date Performed: 09/10/2017 Time Performed: 14:31:29 PTAGE: 56 years EKG: ELECTRONIC ATRIAL PACEMAKER LEFT BUNDLE BRANCH BLOCK ABNORMAL ECG Compared to prior tracing no significant change DOCTOR: Carline Cobb Interpretating Date/Time 09/10/2017 21:50:29
[2017-09-10] MEDS ORDERED: BUME2TAB PO (22:06)
--- NOTE | 2017-09-10 22:21 | EKG ---
Date Performed: 09/10/2017 Time Performed: 11:10:08 PTAGE: 56 years EKG: ELECTRONIC ATRIAL PACEMAKER PREVIOUS TRACING : 07/15/2017 08.12 Compared to prior tracing no significant change DOCTOR: Carline Cobb Interpretating Date/Time 09/10/2017 22:19:15
[2017-09-10] MEDS: AMIODARONE 200 MG TAB PO SCH (22:24)
[2017-09-10] MEDS: METOPROLOL TARTRATE 25 MG TAB PO SCH (22:24)
--- NOTE | 2017-09-10 22:25 | HHI.HP ---
HPI Service [facility] Hospitalists Primary Care Physician Dax Montana MD Admission Diagnosis SOB, near syncopy Chief Complaint: SOB chest discomfort lightheaded today Travel History International Travel<30 Days: No Contact w/Intl Traveler <30 Da: No Traveled to Known Affected Are: No History of Present Illness Mr. Rodriguez is a 56 y/o WM with significant cardiac history to include ND 9, CHF with EF 50% and grade 1 diastolic dysfunction on echo from 02/2016, CAD s/p CABG 6, AICD, hypertension, and COPD. Patient has felt poorly for last couple days with nonspecific chest discomfort ,shortness of breath lightheaded off balance On 2L NC at home presents to the ED for evaluation of a "couple days" history of sporadic CP. Onset gradual, variable duration. Patient states the pain became steady today with radiation to the back, left neck and left arm, rated 9/10 which prompted his visit today. He states the pain is worse with exertion. He also complains of dizziness, nausea and shortness of breath. Dizziness worsened by change in position. He states his shortness of breath is worsened with exertion and lying flat. Also complains of ~12 lb weight gain in the last 2 weeks. He endorses compliance with this daily medications. He did not treat at home with nitro today. He is a nonsmoker, nondrinker. He is followed by Dr. Brice, cardiology. He states that he was shocked "a couple weeks ago" by his [employer] AICD. He states he's has an appointment to have it interrogated tomorrow note labs were stable and was to go home but on ambulating became dizzy and had near syncopal episode admit for observation. Review of Systems Constitutional: COMPLAINS OF: Fatigue, Weight gain Cardiovascular: COMPLAINS OF: Chest pain, Dyspnea on Exertion Past Family Social History Past Medical History djd,anxiety,cad,gerd,ckd,htn,kidney stones Past Surgical History appendix,AICD,pacer,gallbladder hernia Reported Medications Allopurinol 300 Mg Tab 300 Mg PO DAILY Bumetanide 2 Mg Tab 2 Mg PO 2-3 TIMES A DAY Alprazolam 0.25 Mg Tab 0.25 Mg PO TID PRN Amiodarone (Amiodarone HCl) 200 Mg Tab 200 Mg PO BID Aspirin EC (Aspirin) 81 Mg Tabdr 81 Mg PO DAILY Plavix (Clopidogrel Bisulfate) 75 Mg Tab 75 Mg PO DAILY Nitroglycerin SL (Nitroglycerin) 0.4 Mg Subl 0.4 Mg SL DIRECTED PRN ONE TABLET UNDER THE TONGUE NEEDED FOR CHEST PAIN, MAY REPEAT EVERY FIVE MINUTES FOR A TOTAL OF 3 DOSES OR CALL 911 IF NO RELIEF K-Tab (Potassium Chloride) 20 Meq Tab 20 Meq PO TID Isosorbide Mononitrate ER (Isosorbide Mononitrate) 30 Mg Adolph 30 Mg PO DAILY Metoprolol Tartrate 25 Mg Tab 25 Mg PO BID Lyrica (Pregabalin) 50 Mg Cap 50 Mg PO TID Ranitidine (Ranitidine HCl) 300 Mg Tab 300 Mg PO DAILY Tamsulosin (Tamsulosin HCl) 0.4 Mg Cap 0.4 Mg PO DAILY Tramadol (Tramadol HCl) 50 Mg Tab 50 Mg PO QID PRN Ipratropium Neb (Ipratropium E[place]) 0.5 Mg/2.5 Ml Amp 0.5 Mg NEB TID NEB PRN Proair Respiclick Inh (Albuterol Sulfate) 90 Mcg/Act Aerp 2 Puff INH Q6H PRN Allergies: Coded Allergies: Sulfa (Sulfonamide Antibiotics) (Verified Allergy, Severe, HIVES, 07/13/17) oxycodone (Verified Allergy, Severe, RASH, 07/13/17) lorazepam (Verified Adverse Reaction, Severe, Confusion, 07/13/17) MAKES PT "CRAZY" Social History former smoker Physical Exam Vital Signs Vital Signs Date Time Temp Pulse Resp B/P (MAP) Pulse Ox O2 Delivery O2 Flow Rate FiO2 09/10/17 20:53 97.7 78 17 115/62 (79) 93 09/10/17 18:19 97.5 65 20 141/89 (106) 95 09/10/17 17:23 77 17 118/72 (87) 97 Nasal Cannula 09/10/17 12:27 63 18 119/73 (88) 96 Nasal Cannula 2.00 09/10/17 11:28 18 94 Nasal Cannula 2.00 09/10/17 11:28 62 18 124/86 (99) 96 Room Air 130/90 (103) 09/10/17 11:13 69 32 94 Nasal Cannula 2.00 09/10/17 11:12 66 18 140/87 (104) 95 Nasal Cannula 2.00 09/10/17 10:48 98.0 74 20 167/104 (125) 91 Nasal Cannula 2.00 Physical Exam GENERAL: This is a well-nourished, well-developed patient, in no apparent distress. SKIN: No rashes, ecchymoses or lesions. Cool and dry. HEAD: Atraumatic. Normocephalic. No temporal or scalp tenderness. EYES: Pupils equal round and reactive. Extraocular motions intact. No scleral icterus. No injection or drainage. ENT: Nose without bleeding, purulent drainage or septal hematoma. Throat without erythema, tonsillar hypertrophy or exudate. Uvula midline. Airway patent. NECK: Trachea midline. No JVD or lymphadenopathy. Supple, nontender, no meningeal signs. CARDIOVASCULAR: Regular rate and rhythm without murmurs, gallops, or rubs. RESPIRATORY: Clear to auscultation. Breath sounds equal bilaterally. No wheezes , rales, or rhonchi. GASTROINTESTINAL: Abdomen soft, non-tender, nondistended. No hepato-splenomegaly , or palpable masses. No guarding. MUSCULOSKELETAL: Extremities without clubbing, cyanosis, or edema. No joint tenderness, effusion, or edema noted. No calf tenderness. Negative Homans sign bilaterally. NEUROLOGICAL: Awake and alert. Cranial nerves II through XII intact. Motor and sensory grossly within normal limits. Five out of 5 muscle strength in all muscle groups. Normal speech. Laboratory Laboratory Tests Test 09/10/17 11:24 09/10/17 13:49 09/10/17 14:30 White Blood Count 7.7 Red Blood Count 5.05 Hemoglobin 14.0 Hematocrit 42.7 Mean Corpuscular Volume 84.4 Mean Corpuscular Hemoglobin 27.7 Mean Corpuscular Hemoglobin Concent 32.8 Red Cell Distribution Width 15.8 Platelet Count 217 Mean Platelet Volume 8.4 Neutrophils (%) (Auto) 81.5 Lymphocytes (%) (Auto) 9.6 Monocytes (%) (Auto) 6.9 Eosinophils (%) (Auto) 0.8 Basophils (%) (Auto) 1.2 Neutrophils # (Auto) 6.3 Lymphocytes # (Auto) 0.7 Monocytes # (Auto) 0.5 Eosinophils # (Auto) 0.1 Basophils # (Auto) 0.1 CBC Comment DIFF FINAL Differential Comment Prothrombin Time 10.7 Prothromb Time International Ratio 1.1 Activated Partial Thromboplast Time 26.4 Blood Urea Nitrogen 26 Creatinine 1.60 Random Glucose 110 Total Protein 7.6 Albumin 3.8 Calcium Level 9.2 Magnesium Level 2.5 Alkaline Phosphatase 88 Aspartate Amino Transf (AST/SGOT) 17 Alanine Aminotransferase (ALT/SGPT) 24 Total Bilirubin 0.3 Sodium Level 141 Potassium Level 4.2 Chloride Level 102 Carbon Dioxide Level 33.6 Anion Gap 5 Estimat Glomerular Filtration Rate 45 Total Creatine Kinase 51 43 Troponin I LESS THAN 0.02 LESS THAN 0.02 B-Type Natriuretic Peptide 103 Urine Color YELLOW Urine Turbidity CLEAR Urine pH 6.0 Urine Specific [place] 1.012 Urine Protein NEG Urine Glucose (UA) NEG Urine Ketones NEG Urine Occult Blood NEG Urine Nitrite NEG Urine Bilirubin NEG Urine Urobilinogen LESS THAN 2.0 Urine Leukocyte Esterase NEG Urine RBC LESS THAN 1 Urine Hyaline Casts 25 Urine Mucus FEW Microscopic Urinalysis Comment CULT NOT INDICATED Result Diagram: 09/10/17 1124 09/10/17 1124 Imaging Last 24 hours Impressions Chest X-Ray 09/10/17 1112 Signed Impressions: Service Date/Time: Sunday, September 10, 2017 11:25 - CONCLUSION: Compensated cardiomegaly otherwise negative aerated. Pacer, previous bypass. Anil Ruvalcaba MD FACR Head CT 09/10/17 0000 Signed Impressions: Service Date/Time: Sunday, September 10, 2017 12:15 - CONCLUSION: 1. No acute findings in the brain. Rod Montes MD Course admit for observation Caprini VTE Risk Assessment Caprini VTE Risk Assessment: Mod/High Risk (score >= 2) Caprini Risk Assessment Model Point Value = 1 Point Value = 2 Point Value = 3 Point Value = 5 Age 41-60 Minor surgery BMI > 25 kg/m2 Swollen legs Varicose veins or History of unexplained or recurrent spontaneous Oral contraceptives or hormone replacement Sepsis (< 1 month) Serious lung disease, including pneumonia (< 1 month) Abnormal pulmonary function Acute myocardial infarction Congestive heart failure (< 1 month) History of inflammatory bowel disease Medical patient at bed rest Age 61-74 Arthroscopic surgery Major open surgery (> 45 min) Laparoscopic surgery (> 45 min) Malignancy Confined to bed (> 72 hours) Immobilizing plaster cast Central venous access Age >= 75 History of VTE Family history of VTE Factor V Leiden Prothrombin [id number] Lupus anticoagulant Anticardiolipin antibodies Elevated serum homocysteine Heparin-induced thrombocytopenia Other congenital or acquired thrombophilia Stroke (< 1 month) Elective arthroplasty Hip, pelvis, or leg fracture Acute spinal cord injury (< 1 month) Prophylaxis Regimen Total Risk Factor Score Risk Level Prophylaxis Regimen 0-1 Low Early ambulation 2 Moderate Order ONE of the following: *Sequential Compression Device (SCD) *Heparin 5000 units SQ BID 3-4 Higher Order ONE of the following medications: *Heparin 5000 units SQ TID *Enoxaparin/Lovenox 40 mg SQ daily (WT < 150 kg, CrCl > 30 mL/min) *Enoxaparin/Lovenox 30 mg SQ daily (WT < 150 kg, CrCl > 10-29 mL/min) *Enoxaparin/Lovenox 30 mg SQ BID (WT < 150 kg, CrCl > 30 mL/min) AND/OR *Sequential Compression Device (SCD) 5 or more Highest Order ONE of the following medications: *Heparin 5000 units SQ TID (Preferred with Epidurals) *Enoxaparin/Lovenox 40 mg SQ daily (WT < 150 kg, CrCl > 30 mL/min) *Enoxaparin/Lovenox 30 mg SQ daily (WT < 150 kg, CrCl > 10-29 mL/min) *Enoxaparin/Lovenox 30 mg SQ BID (WT < 150 kg, CrCl > 30 mL/min) AND *Sequential Compression Device (SCD) Assessment and Plan Problem List: (1) Syncope ICD Codes: R55 - Syncope and collapse Status: Acute Plan: near syncopal episode with hypoxia was off oxygen normally on 2 liters at home will observe obtain cardiac consult based on xrays and lab no evidence of chf (2) SOB (shortness of breath) ICD Codes: R06.02 - Shortness of breath Status: Chronic Plan: monitor no evidence of chf (3) Chest pain ICD Codes: R07.9 - Chest pain Status: Acute Plan: more atypical 2 sets troponin negative Assessment and Plan further plan as case develops ,chest pain seems more atypical will get ct thorax unable to give contrast as cr 1.6 Code Status full Discussed Condition With patient Problem Qualifiers (1) Chest pain: Qualified Codes: R07.9 - Chest pain, unspecified Izaiah Read MD Sep 10, 2017 22:25
--- NOTE | 2017-09-10 22:41 | EKG ---
Date Performed: 09/10/2017 Time Performed: 17:55:36 PTAGE: 56 years EKG: ELECTRONIC ATRIAL PACEMAKER ABNORMAL ECG PREVIOUS TRACING : 09/10/2017 14.31 Compared to prior tracing no significant change DOCTOR: Carline Cobb Interpretating Date/Time 09/10/2017 22:39:12
[2017-09-10] MEDS ORDERED: SODIUM CHLORIDE 0.9% FLUSH 10 ML FLUSH IV FLUSH PRN (22:45)
[2017-09-10] MEDS ORDERED: NALOXONE HCL 0.4 MG/ML AMP IV PUSH PRN (22:45)
[2017-09-10] MEDS ORDERED: BISACODYL 10 MG SUPP RECTAL PRN (22:45)
[2017-09-10] MEDS ORDERED: MAGNESIUM HYDROXIDE SUSP 30 ML CUP PO PRN (22:45)
[2017-09-10] MEDS ORDERED: ALBUTEROL SULFATE 90 MCG/ACT HFA 8 GM INHALER INH PRN (22:45)
[2017-09-10] MEDS ORDERED: LACTULOSE SYRUP 20 GM/30 ML CUP PO PRN (22:45)
[2017-09-10] MEDS ORDERED: SENNOSIDES 8.6 MG TAB PO PRN (22:45)
[2017-09-10] MEDS: ALPRAZolam 0.25 MG TAB PO PRN (23:26)
[2017-09-11] VITALS (8 sets, daily range): BP systolic 103–123; BP diastolic 58–79; PULSE 60–69; RESP 17–18; TEMP 97.4–97.9; O2SAT 91–98
[2017-09-11] MEDS: traMADol HCL 50 MG TAB PO PRN ×3 (03:54→16:50)
--- NOTE | 2017-09-11 04:22 | RADRPT ---
EXAM DATE/TIME: 09/11/2017 03:29 [place] COMPARISON: CT THORAX W/O CONTRAST, March 11, 2016, 10:52. INDICATIONS : Chest pain and shortness of breath. RADIATION DOSE: 7.31 CTDIvol (mGy) MEDICAL HISTORY : Parkinson's. Hypertension. Myocardial infarction. CHF. CAD. COPD. TIA. SURGICAL HISTORY : CABG Coronary artery stent. Pacemaker. ENCOUNTER: Initial ACUITY: 2 days PAIN SCALE: 7/10 LOCATION: chest TECHNIQUE: Volumetric scanning of the chest was performed. Using automated exposure control and adjustment of t he mA and/or kV according to patient size, radiation dose was kept as low as reasonably achievable to obtain optimal diagnostic quality images. DICOM format image data is available electronically for r eview and comparison. Follow-up recommendations for detected pulmonary nodules are based at a minimum on nodule size and pa tient risk factors according to Fleischner Society Guidelines. FINDINGS: LUNGS: There is no pneumothorax. No concerning pulmonary nodule is visualized. There is stable elevation of the right hemidiaphragm with atelectasis and/or scarring at the right lung base. There is consolidat rita opacity again noted which is unchanged. PLEURAE: There is no distinct effusion. There is mild pleural thickening again noted on the right is stable in appearance. There is a small right effusion. There are calcified left pleural plaques again noted. MEDIASTINUM: The heart and great vessels demonstrate no acute abnormality. There is no mediastinal or hilar lymph adenopathy. The patient is status post median sternotomy for bypass grafting procedure with postsurgi doe change. The heart size is mildly prominent and the transvenous pacemaker remains in place. AXILLAE: Within normal limits. No lymphadenopathy. MUSCULOSKELETAL: Within normal limits for patient age. MISCELLANEOUS: The visualized upper abdominal organs demonstrate no acute abnormality. CONCLUSION: 1. Stable moderate elevation of the right hemidiaphragm with apparent scarring and stable pleural thi ckening. 2. Calcified pleural plaques are again noted. 3. Status post median sternotomy for bypass grafting with postsurgical change. Patrice Hendricks MD on September 11, 2017 at 4:17 Board Certified Radiologist. This report was verified electronically.
[2017-09-11 07:51] LABS: BICARBONATE 32.7 MEQ/L (21.0-32.0); POTASSIUM 4.3 MEQ/L (3.5-5.1)
[2017-09-11 07:54] LABS: AUTOMATED NEUTROPHIL # 5.1 TH/MM3 (1.8-7.7); BASOPHIL # 0.1 TH/MM3 (0-0.2); BASOPHIL % 1.5 % (0.0-2.0); EOSINOPHIL # 0.2 TH/MM3 (0-0.4); EOSINOPHIL % 2.4 % (0.0-4.0); HEMATOCRIT 40.3 % (39.0-51.0); HEMO FLAGS DIFF FINAL; LYMPH % 10.9 % (9.0-44.0); LYMPHOCYTE # 0.7 TH/MM3 (1.0-4.8); MEAN CELL VOLUME 86.1 FL (80.0-100.0); MEAN CORPUSCULAR HEMOGLOBIN 27.9 PG (27.0-34.0); MEAN CORPUSCULAR HGB CONC 32.4 % (32.0-36.0); MONO % 9.8 % (0.0-8.0); NEUT % 75.4 % (16.0-70.0); PLATELET COUNT 201 TH/MM3 (150-450); RED BLOOD COUNT 4.68 MIL/MM3 (4.50-5.90); RED CELL DISTRIBUTION WIDTH 15.4 % (11.6-17.2); WHITE BLOOD COUNT 6.7 TH/MM3 (4.0-11.0)
[2017-09-11] MEDS: ONDANSETRON HCL 4 MG/2 ML VIAL IVP PRN ×2 (09:46→16:45)
[2017-09-11] MEDS: SODIUM CHLORIDE 0.9% FLUSH 10 ML FLUSH IV FLUSH SCH ×2 (09:47→20:27)
[2017-09-11] MEDS: CLOPIDOGREL 75 MG TAB PO SCH (09:48)
[2017-09-11] MEDS: ISOSORBIDE MONONITRATE 30 MG TAB PO SCH (09:48)
[2017-09-11] MEDS: TAMSULOSIN HCL 0.4 MG CAP PO SCH (09:48)
[2017-09-11] MEDS: PREGABALIN 25 MG CAP PO SCH ×3 (09:49→16:48)
[2017-09-11] MEDS: POTASSIUM CHLORIDE 20 MEQ CONTROLLED RELEASE TAB PO SCH ×3 (09:50→16:48)
[2017-09-11] MEDS: BUMETANIDE 1 MG TAB PO SCH ×2 (09:50→16:44)
[2017-09-11] MEDS: METOPROLOL TARTRATE 25 MG TAB PO SCH ×2 (09:50→20:31)
[2017-09-11] MEDS: ALLOPURINOL 300 MG TAB PO SCH (09:50)
[2017-09-11] MEDS: FAMOTIDINE 20 MG TAB PO SCH ×2 (09:52→20:30)
[2017-09-11] MEDS: AMIODARONE 200 MG TAB PO SCH ×2 (09:52→20:27)
[2017-09-11] MEDS: DOCUSATE SODIUM 50 MG/SENNA 8.6 MG TAB PO SCH ×2 (09:53→20:27)
[2017-09-11] MEDS: ASPIRIN EC 81 MG TABEC PO SCH (09:58)
[2017-09-11] MEDS ORDERED: INFLUENZA VIRUS VACCINE (QUADRIVALENT) 0.5 ML SYR IM ONE (10:00)
--- NOTE | 2017-09-11 17:56 | HHI.PR ---
Subjective Remarks Patient complains of generally feeling unwell. Patient specifically reports feeling dizzy as if the room is spinning and nauseous Objective Vitals Vital Signs Date Time Temp Pulse Resp B/P (MAP) Pulse Ox O2 Delivery O2 Flow Rate FiO2 09/11/17 15:29 69 123/77 (92) 120/74 (89) 09/11/17 15:27 97.7 67 18 109/66 (80) 97 09/11/17 11:24 97.8 60 18 111/73 (86) 96 09/11/17 08:26 97 09/11/17 07:25 97.4 61 18 118/79 (92) 97 09/11/17 05:29 18 09/11/17 03:01 97.7 61 18 103/58 (73) 91 09/10/17 23:54 93 09/10/17 22:57 97.7 61 17 130/93 (105) 93 09/10/17 20:53 97.7 78 17 115/62 (79) 93 09/10/17 18:19 97.5 65 20 141/89 (106) 95 Result Diagram: 09/11/17 0646 09/11/17 0646 Other Results Laboratory Tests Test 09/10/17 11:24 09/10/17 13:49 09/10/17 14:30 09/11/17 06:46 White Blood Count 7.7 TH/MM3 6.7 TH/MM3 Red Blood Count 5.05 MIL/MM3 4.68 MIL/MM3 Hemoglobin 14.0 GM/DL 13.0 GM/DL Hematocrit 42.7 % 40.3 % Mean Corpuscular Volume 84.4 FL 86.1 FL Mean Corpuscular Hemoglobin 27.7 PG 27.9 PG Mean Corpuscular Hemoglobin Concent 32.8 % 32.4 % Red Cell Distribution Width 15.8 % 15.4 % Platelet Count 217 TH/MM3 201 TH/MM3 Mean Platelet Volume 8.4 FL 8.7 FL Neutrophils (%) (Auto) 81.5 % 75.4 % Lymphocytes (%) (Auto) 9.6 % 10.9 % Monocytes (%) (Auto) 6.9 % 9.8 % Eosinophils (%) (Auto) 0.8 % 2.4 % Basophils (%) (Auto) 1.2 % 1.5 % Neutrophils # (Auto) 6.3 TH/MM3 5.1 TH/MM3 Lymphocytes # (Auto) 0.7 TH/MM3 0.7 TH/MM3 Monocytes # (Auto) 0.5 TH/MM3 0.7 TH/MM3 Eosinophils # (Auto) 0.1 TH/MM3 0.2 TH/MM3 Basophils # (Auto) 0.1 TH/MM3 0.1 TH/MM3 CBC Comment DIFF FINAL DIFF FINAL Differential Comment Prothrombin Time 10.7 SEC Prothromb Time International Ratio 1.1 RATIO Activated Partial Thromboplast Time 26.4 SEC Blood Urea Nitrogen 26 MG/DL 33 MG/DL Creatinine 1.60 MG/DL 1.68 MG/DL Random Glucose 110 MG/DL 85 MG/DL Total Protein 7.6 GM/DL Albumin 3.8 GM/DL Calcium Level 9.2 MG/DL 8.7 MG/DL Magnesium Level 2.5 MG/DL Alkaline Phosphatase 88 U/L Aspartate Amino Transf (AST/SGOT) 17 U/L Alanine Aminotransferase (ALT/SGPT) 24 U/L Total Bilirubin 0.3 MG/DL Sodium Level 141 MEQ/L 139 MEQ/L Potassium Level 4.2 MEQ/L 4.3 MEQ/L Chloride Level 102 MEQ/L 101 MEQ/L Carbon Dioxide Level 33.6 MEQ/L 32.7 MEQ/L Anion Gap 5 MEQ/L 5 MEQ/L Estimat Glomerular Filtration Rate 45 ML/MIN 42 ML/MIN Total Creatine Kinase 51 U/L 43 U/L Troponin I LESS THAN 0.02 NG/ML LESS THAN 0.02 NG/ML B-Type Natriuretic Peptide 103 PG/ML Urine Color YELLOW Urine Turbidity CLEAR Urine pH 6.0 Urine Specific [place] 1.012 Urine Protein NEG mg/dL Urine Glucose (UA) NEG mg/dL Urine Ketones NEG mg/dL Urine Occult Blood NEG Urine Nitrite NEG Urine Bilirubin NEG Urine Urobilinogen LESS THAN 2.0 MG/DL Urine Leukocyte Esterase NEG Urine RBC LESS THAN 1 /hpf Urine Hyaline Casts 25 /lpf Urine Mucus FEW /lpf Microscopic Urinalysis Comment CULT NOT INDICATED Imaging Last 24 hours Impressions Chest X-Ray 09/10/17 1112 Signed Impressions: Service Date/Time: Sunday, September 10, 2017 11:25 - CONCLUSION: Compensated cardiomegaly otherwise negative aerated. Pacer, previous bypass. Anil Ruvalcaba MD FACR Head CT 09/10/17 0000 Signed Impressions: Service Date/Time: Sunday, September 10, 2017 12:15 - CONCLUSION: 1. No acute findings in the brain. Rod Montes MD Objective Remarks GENERAL: This is an obese 36-year-old male patient who appears uncomfortable CARDIOVASCULAR: Regular rate and rhythm RESPIRATORY: Clear to auscultation. Breath sounds equal bilaterally. GASTROINTESTINAL: Abdomen soft, non-tender, nondistended. No guarding. MUSCULOSKELETAL: Extremities without clubbing, cyanosis, or edema. No joint tenderness, effusion, or edema noted. No calf tenderness. Negative Homans sign bilaterally. NEUROLOGICAL: Awake and alert. No focal deficits pressure. Motor and sensory grossly within normal limits. Five out of 5 muscle strength in all muscle groups. Normal speech. A/P Problem List: (1) Syncope ICD Codes: R55 - Syncope and collapse Status: Acute Plan: near syncopal episode with hypoxia was off oxygen normally on 2 liters at home will observe Patient complains of dizziness worse with moving his head from side to side feels as though the room is spinning. Orthostatic vital signs reviewed and not suggestive of orthostatic hypotension Will schedule Antivert every 8 hours and reevaluate in a.m. (2) SOB (shortness of breath) ICD Codes: R06.02 - Shortness of breath Status: Chronic Plan: monitor no evidence of chf Patient appears to be at his baseline shortness of breath (3) Chest pain ICD Codes: R07.9 - Chest pain Status: Acute Plan: more atypical 2 sets troponin negative Assessment and Plan Patient examined. Assessment and plan formulated with Tennille Germain PA-C. I agree with the above. Trial of antivert for vertigo symptoms. Obtain PT consultation Anticipate discharge to home in 1-2 days. Problem Qualifiers (1) Chest pain: Qualified Codes: R07.9 - Chest pain, unspecified Tennille Germain Sep 11, 2017 17:56 Sunny Jenkins DO Sep 11, 2017 23:14
[2017-09-11] MEDS: MECLIZINE HCL 25 MG TAB PO SCH (19:40)
[2017-09-11] MEDS: ALPRAZolam 0.25 MG TAB PO PRN (21:52)
[2017-09-12] VITALS (11 sets, daily range): BP systolic 110–144; BP diastolic 65–83; PULSE 59–88; RESP 18–21; TEMP 97.6–98.7; O2SAT 91–98
[2017-09-12] MEDS: MECLIZINE HCL 25 MG TAB PO SCH ×4 (01:07→21:59)
[2017-09-12] MEDS: ONDANSETRON HCL 4 MG/2 ML VIAL IVP PRN ×2 (01:09→10:51)
[2017-09-12] MEDS: traMADol HCL 50 MG TAB PO PRN ×2 (01:09→10:47)
[2017-09-12] MEDS: METOPROLOL TARTRATE 25 MG TAB PO SCH ×2 (09:00→22:01)
[2017-09-12] MEDS: ASPIRIN EC 81 MG TABEC PO SCH (10:47)
[2017-09-12] MEDS: AMIODARONE 200 MG TAB PO SCH ×2 (10:47→21:59)
--- NOTE | 2017-09-12 10:47 | HHI.PR ---
Subjective Remarks Patient resting in bed report dizziness has improved c/o intermitted bilateral chest pressure. Objective Vitals Vital Signs Date Time Temp Pulse Resp B/P (MAP) Pulse Ox O2 Delivery O2 Flow Rate FiO2 09/12/17 07:22 97.6 65 18 113/69 (84) 98 124/78 (93) 124/83 (97) 09/12/17 04:57 98.5 67 18 144/77 (99) 96 09/12/17 04:41 Nasal Cannula 2.00 09/12/17 04:05 62 09/12/17 00:19 98.7 61 18 123/74 (90) 98 09/12/17 00:10 59 09/11/17 21:11 97.6 64 18 113/73 (86) 95 116/77 (90) 123/74 (90) 09/11/17 20:05 60 09/11/17 15:29 69 123/77 (92) 120/74 (89) 09/11/17 15:27 97.7 67 18 109/66 (80) 97 09/11/17 11:24 97.8 60 18 111/73 (86) 96 Result Diagram: 09/11/17 0646 09/11/17 0646 Other Results Laboratory Tests Test 09/10/17 11:24 09/10/17 13:49 09/10/17 14:30 09/11/17 06:46 White Blood Count 7.7 TH/MM3 6.7 TH/MM3 Red Blood Count 5.05 MIL/MM3 4.68 MIL/MM3 Hemoglobin 14.0 GM/DL 13.0 GM/DL Hematocrit 42.7 % 40.3 % Mean Corpuscular Volume 84.4 FL 86.1 FL Mean Corpuscular Hemoglobin 27.7 PG 27.9 PG Mean Corpuscular Hemoglobin Concent 32.8 % 32.4 % Red Cell Distribution Width 15.8 % 15.4 % Platelet Count 217 TH/MM3 201 TH/MM3 Mean Platelet Volume 8.4 FL 8.7 FL Neutrophils (%) (Auto) 81.5 % 75.4 % Lymphocytes (%) (Auto) 9.6 % 10.9 % Monocytes (%) (Auto) 6.9 % 9.8 % Eosinophils (%) (Auto) 0.8 % 2.4 % Basophils (%) (Auto) 1.2 % 1.5 % Neutrophils # (Auto) 6.3 TH/MM3 5.1 TH/MM3 Lymphocytes # (Auto) 0.7 TH/MM3 0.7 TH/MM3 Monocytes # (Auto) 0.5 TH/MM3 0.7 TH/MM3 Eosinophils # (Auto) 0.1 TH/MM3 0.2 TH/MM3 Basophils # (Auto) 0.1 TH/MM3 0.1 TH/MM3 CBC Comment DIFF FINAL DIFF FINAL Differential Comment Prothrombin Time 10.7 SEC Prothromb Time International Ratio 1.1 RATIO Activated Partial Thromboplast Time 26.4 SEC Blood Urea Nitrogen 26 MG/DL 33 MG/DL Creatinine 1.60 MG/DL 1.68 MG/DL Random Glucose 110 MG/DL 85 MG/DL Total Protein 7.6 GM/DL Albumin 3.8 GM/DL Calcium Level 9.2 MG/DL 8.7 MG/DL Magnesium Level 2.5 MG/DL Alkaline Phosphatase 88 U/L Aspartate Amino Transf (AST/SGOT) 17 U/L Alanine Aminotransferase (ALT/SGPT) 24 U/L Total Bilirubin 0.3 MG/DL Sodium Level 141 MEQ/L 139 MEQ/L Potassium Level 4.2 MEQ/L 4.3 MEQ/L Chloride Level 102 MEQ/L 101 MEQ/L Carbon Dioxide Level 33.6 MEQ/L 32.7 MEQ/L Anion Gap 5 MEQ/L 5 MEQ/L Estimat Glomerular Filtration Rate 45 ML/MIN 42 ML/MIN Total Creatine Kinase 51 U/L 43 U/L Troponin I LESS THAN 0.02 NG/ML LESS THAN 0.02 NG/ML B-Type Natriuretic Peptide 103 PG/ML Urine Color YELLOW Urine Turbidity CLEAR Urine pH 6.0 Urine Specific [place] 1.012 Urine Protein NEG mg/dL Urine Glucose (UA) NEG mg/dL Urine Ketones NEG mg/dL Urine Occult Blood NEG Urine Nitrite NEG Urine Bilirubin NEG Urine Urobilinogen LESS THAN 2.0 MG/DL Urine Leukocyte Esterase NEG Urine RBC LESS THAN 1 /hpf Urine Hyaline Casts 25 /lpf Urine Mucus FEW /lpf Microscopic Urinalysis Comment CULT NOT INDICATED Imaging Last 24 hours Impressions Chest X-Ray 09/10/17 1112 Signed Impressions: Service Date/Time: Sunday, September 10, 2017 11:25 - CONCLUSION: Compensated cardiomegaly otherwise negative aerated. Pacer, previous bypass. Anil Ruvalcaba MD FACR Head CT 12/5/17 0000 Signed Impressions: Service Date/Time: Sunday, September 10, 2017 12:15 - CONCLUSION: 1. No acute findings in the brain. Rod Montes MD Objective Remarks GENERAL: This is an obese 36-year-old male patient who appears uncomfortable CARDIOVASCULAR: Regular rate and rhythm RESPIRATORY: Clear to auscultation. Breath sounds equal bilaterally. GASTROINTESTINAL: Abdomen soft, non-tender, nondistended. No guarding. MUSCULOSKELETAL: Extremities without clubbing, cyanosis, or edema. No joint tenderness, effusion, or edema noted. No calf tenderness. Negative Homans sign bilaterally. NEUROLOGICAL: Awake and alert. No focal deficits pressure. Motor and sensory grossly within normal limits. Five out of 5 muscle strength in all muscle groups. Normal speech. A/P Problem List: (1) Syncope ICD Codes: R55 - Syncope and collapse Status: Acute Plan: -near syncopal episode with hypoxia was off oxygen normally on 2 liters at home will observe -Patient complains of dizziness worse with moving his head from side to side feels as though the room is spinning. -Orthostatic vital signs reviewed and not suggestive of orthostatic hypotension -patient's dizziness improved with Antivert every 8 hours -PT consult pending (2) SOB (shortness of breath) ICD Codes: R06.02 - Shortness of breath Status: Chronic Plan: -monitor no evidence of chf -Patient appears to be at his baseline shortness of breath (3) Chest pain ICD Codes: R07.9 - Chest pain Status: Acute Plan: -more atypical 2 sets troponin negative -Patient does however have a cardiac history and is complaining of imtermitter bilateral chest pain. Discussed case with patient's outpatient value engineer Dr. Brice who recommended Lexiscan. Assessment and Plan Patient examined. Assessment and plan formulated with Judy Marinelli PA-C. I agree with the above. Problem Qualifiers (1) Chest pain: Qualified Codes: R07.9 - Chest pain, unspecified Tennille Germain Sep 12, 2017 10:47 Sunny Jenkins DO Sep 13, 2017 19:23
[2017-09-12] MEDS: TAMSULOSIN HCL 0.4 MG CAP PO SCH (10:48)
[2017-09-12] MEDS: FAMOTIDINE 20 MG TAB PO SCH ×2 (10:48→22:01)
[2017-09-12] MEDS: BUMETANIDE 1 MG TAB PO SCH ×2 (10:49→18:18)
[2017-09-12] MEDS: ISOSORBIDE MONONITRATE 30 MG TAB PO SCH (10:49)
[2017-09-12] MEDS: POTASSIUM CHLORIDE 20 MEQ CONTROLLED RELEASE TAB PO SCH ×3 (10:49→18:17)
[2017-09-12] MEDS: SODIUM CHLORIDE 0.9% FLUSH 10 ML FLUSH IV FLUSH SCH ×2 (10:49→21:58)
[2017-09-12] MEDS: DOCUSATE SODIUM 50 MG/SENNA 8.6 MG TAB PO SCH ×2 (10:49→21:59)
[2017-09-12] MEDS: PREGABALIN 25 MG CAP PO SCH ×3 (10:50→18:18)
[2017-09-12] MEDS: ALLOPURINOL 300 MG TAB PO SCH (10:50)
[2017-09-12] MEDS: CLOPIDOGREL 75 MG TAB PO SCH (10:50)
[2017-09-12] MEDS ORDERED: SODIUM CHLOR 0.9% 1000 ML INJ 1,000 ML IV SCH (13:00)
[2017-09-12] MEDS: ACETAMINOPHEN 325 MG TAB PO PRN (13:33)
[2017-09-13] VITALS (8 sets, daily range): BP systolic 103–193; BP diastolic 57–140; PULSE 60–73; RESP 18–20; TEMP 98.2–99.2; O2SAT 92–97
[2017-09-13] MEDS: ALPRAZolam 0.25 MG TAB PO PRN ×3 (01:41→22:09)
[2017-09-13] MEDS: traMADol HCL 50 MG TAB PO PRN (01:42)
[2017-09-13] MEDS: ONDANSETRON HCL 4 MG/2 ML VIAL IVP PRN (01:42)
[2017-09-13] MEDS: MECLIZINE HCL 25 MG TAB PO SCH ×4 (03:40→22:01)
[2017-09-13 06:40] LABS: BICARBONATE 37.5 MEQ/L (21.0-32.0); POTASSIUM 4.5 MEQ/L (3.5-5.1)
[2017-09-13] MEDS ORDERED: REGADENOSON INJ 0.4 MG/5 ML SYR ONE (07:36)
--- NOTE | 2017-09-13 08:18 | PD.CARD.PN ---
Subjective Subjective Remarks Continued episodes of chest pain overnight. Left-sided. Last approximately 30 minutes. 7-8/10 in severity. No pain with deep breathing. Breathing is at baseline. Going for stress test today. Objective Medications Current Medications Medications (Trade) Dose Ordered Sig/Luis Route Start Time Stop Time Status Last Admin (Zyloprim) 300 mg DAILY PO 09/11/17 09:00 09/12/17 10:50 (Xanax) 0.25 mg TID PRN PO 09/10/17 21:30 09/13/17 01:41 (Cordarone) 200 mg BID PO 09/10/17 22:00 09/12/17 21:59 (Ecotrin Ec) 81 mg DAILY PO 09/11/17 09:00 09/12/17 10:47 (Plavix) 75 mg DAILY PO 09/11/17 09:00 09/12/17 10:50 (Atrovent Neb) 0.5 mg TID NEB PRN NEB 09/10/17 21:30 (Imdur) 30 mg DAILY PO 09/11/17 09:00 09/12/17 10:49 (Lopressor) 25 mg BID PO 09/10/17 22:00 Future Hold 09/12/17 22:01 (Nitrostat Sl) 0.4 mg UNSCH PRN SL 09/10/17 21:30 (KCl) 20 meq TID PO 09/11/17 09:00 09/12/17 18:17 (Lyrica) 50 mg TID PO 09/11/17 09:00 09/12/17 18:18 (Flomax) 0.4 mg DAILY PO 09/11/17 09:00 09/12/17 10:48 (Ultram) 50 mg QID PRN PO 09/10/17 21:30 09/13/17 01:42 (Proair Hfa Inh) 2 puff Q6H PRN INH 09/10/17 22:45 (Pepcid) 10 mg Q12HR PO 09/11/17 09:00 09/12/17 22:01 (Bumetanide) 2 mg BID@,18 PO 09/11/17 09:00 09/12/17 18:18 (NS Flush) 2 ml UNSCH PRN IV FLUSH 09/10/17 22:45 (NS Flush) 2 ml BID IV FLUSH 09/11/17 09:00 09/12/17 21:58 (Zofran Inj) 4 mg Q6H PRN IVP 09/10/17 22:45 09/13/17 01:42 (Tylenol) 650 mg Q6H PRN PO 09/10/17 22:45 09/12/17 13:33 (Narcan Inj) 0.4 mg UNSCH PRN IV PUSH 09/10/17 22:45 (Madelaine-Colace) 1 tab BID PO 09/11/17 09:00 09/12/17 21:59 (Milk Of Magnesia Liq) 30 ml Q12H PRN PO 09/10/17 22:45 (Senokot) 17.2 mg Q12H PRN PO 09/10/17 22:45 (Dulcolax Supp) 10 mg DAILY PRN RECTAL 09/10/17 22:45 (Lactulose Liq) 30 ml DAILY PRN PO 09/10/17 22:45 Sodium Chloride 1,000 ml @ 42 mls/hr [id number] IV 09/12/17 13:00 09/12/17 13:00 (Antivert) 25 mg Q6H PO 09/12/17 16:00 09/13/17 03:40 Vital Signs / I&O Vital Signs Date Time Temp Pulse Resp B/P (MAP) Pulse Ox O2 Delivery O2 Flow Rate FiO2 09/13/17 08:03 112/72 (85) 09/13/17 07:49 Nasal Cannula 3.00 09/13/17 04:13 98.7 73 20 112/59 (76) 97 09/13/17 00:14 98.7 66 18 106/61 (76) 97 09/13/17 00:00 63 09/12/17 21:00 59 09/12/17 20:57 97 Nasal Cannula 4.00 09/12/17 19:58 98.0 64 20 110/65 (80) 96 09/12/17 15:13 98.0 88 19 120/76 (91) 91 09/12/17 11:29 98.1 64 21 121/69 (86) 98 I/O 12/7/17 12/7/17 12/7/17 12/8/17 12/8/17 12/8/17 07:00 15:00 23:00 07:00 15:00 23:00 Intake Total 720 ml 240 ml Output Total 1850 ml 600 ml 1550 ml Balance -1130 ml -360 ml -1550 ml Intake Oral 720 ml 240 ml Output Urine Total 1850 ml 600 ml 1550 ml Physical Exam GENERAL: Well-developed well-nourished. In no acute distress. NECK: No carotid bruits. No JVD. CARDIOVASCULAR: Regular rate and rhythm. No murmur appreciated. Chest wall is "sore" to palpation. RESPIRATORY: No accessory muscle use. Clear to auscultation. Breath sounds equal bilaterally. MUSCULOSKELETAL: No clubbing or cyanosis. No edema. NEUROLOGICAL: Awake and alert. Normal speech. Some tremors. Laboratory Laboratory Tests Test 09/12/17 15:59 09/13/17 04:22 D-Dimer Quantitative (PE/DVT) 0.59 MG/L FEU Blood Urea Nitrogen 40 MG/DL Creatinine 1.99 MG/DL Random Glucose 80 MG/DL Calcium Level 8.6 MG/DL Sodium Level 139 MEQ/L Potassium Level 4.5 MEQ/L Chloride Level 98 MEQ/L Carbon Dioxide Level 37.5 MEQ/L Anion Gap 4 MEQ/L Estimat Glomerular Filtration Rate 35 ML/MIN Assessment and Plan Assessment and Plan 56 y/o WM with significant cardiac history to include ND 9, CHF with EF 50% and grade 1 diastolic dysfunction on echo from 02/2016, CAD s/p CABG 6, AICD, hypertension, and COPD who presented for chest discomfort, shortness breath, lightheadedness. Atypical chest pain with extensive history of CAD: Troponins within normal limits. EKG with paced rhythm. Check Lexiscan. Check d-dimer is mildly elevated, could consider V/Q if stress test negative after washout. Continue Plavix, metoprolol, aspirin TWIN: Increase IVF. Shubham Chinchilla Sep 13, 2017 08:18
[2017-09-13] MEDS: CLOPIDOGREL 75 MG TAB PO SCH (09:53)
[2017-09-13] MEDS: DOCUSATE SODIUM 50 MG/SENNA 8.6 MG TAB PO SCH ×2 (09:53→22:06)
[2017-09-13] MEDS: PREGABALIN 25 MG CAP PO SCH ×3 (09:53→18:57)
[2017-09-13] MEDS: ASPIRIN EC 81 MG TABEC PO SCH (09:53)
[2017-09-13] MEDS: ALLOPURINOL 300 MG TAB PO SCH (09:53)
[2017-09-13] MEDS: TAMSULOSIN HCL 0.4 MG CAP PO SCH (09:54)
[2017-09-13] MEDS: AMIODARONE 200 MG TAB PO SCH ×2 (09:54→22:01)
[2017-09-13] MEDS: ISOSORBIDE MONONITRATE 30 MG TAB PO SCH (09:54)
[2017-09-13] MEDS: POTASSIUM CHLORIDE 20 MEQ CONTROLLED RELEASE TAB PO SCH ×3 (09:54→18:57)
[2017-09-13] MEDS: SODIUM CHLORIDE 0.9% FLUSH 10 ML FLUSH IV FLUSH SCH ×2 (09:54→22:00)
[2017-09-13] MEDS: BUMETANIDE 1 MG TAB PO SCH ×2 (09:57→18:57)
[2017-09-13] MEDS: FAMOTIDINE 20 MG TAB PO SCH ×2 (09:58→22:01)
--- NOTE | 2017-09-13 10:23 | RADRPT ---
EXAM DATE/TIME: 09/12/2017 10:07 [facility] COMPARISON: MYOCARDIAL PERF PHARM SPECT, GATED W/EF, June 05, 2016, 12:55. INDICATIONS : Chest pain with dyspnea. Syncope. Angina. DOSE: 30.6 mCi Tc99m Myoview at stress. 31.2 mCi Tc99m Myoview at rest. 0.4 mg Lexiscan STRESS SYMPTOMS: Nausea. EJECTION FRACTION: 28% MEDICAL HISTORY : Renal insufficiency, chrnoic. Chronic obstructive pulmonary disease. Myocardial infarction. HTN. SURGICAL HISTORY : Pacemaker. Angioplasty. CABG ENCOUNTER: Initial ACUITY: 1 day PAIN SCALE: 2/10 LOCATION: Substernal chest TECHNIQUE: The patient underwent pharmacologic stress with infusion of prescribed dose. Continuous ECG tracing was monitored during stress. Gated SPECT imaging was performed after stress and conventional SPECT i maging was performed at rest. The examination was performed on a SPECT/CT scanner, both attenuation and non-corrected datasets were reviewed. FINDINGS: DISTRIBUTION: The maximum perfused segment at stress is in the anterolateral wall. PERFUSION STUDY: There is a large area of severe decreased perfusion involving the inferior half of the left ventricle , stable from the prior exam. There is a small focal area of moderate reversibility involving the mid anterior wall of the left ventricle. GATED STUDY: There is global hypokinesia. CONCLUSION: 1. Small focal area of moderate reversibility in the anterior wall of the mid left ventricle. 2. Large fixed decreased perfusion defect involving the inferior half of the left ventricle, characte ristic of old infarct and scar. 3. Global hypokinesia with significantly reduced left ventricular ejection fraction calculated at 28% . This represents a decrease from the prior study when it was calculated at 48%.. RISK CATEGORY: High (>3% Annual Mortality Rate) Pj Arellano MD on September 13, 2017 at 10:18 Board Certified Radiologist. This report was verified electronically.
--- NOTE | 2017-09-13 11:16 | HHI.PR ---
Subjective Remarks No new complaints. Objective Vitals Vital Signs Date Time Temp Pulse Resp B/P (MAP) Pulse Ox O2 Delivery O2 Flow Rate FiO2 09/13/17 08:03 112/72 (85) 09/13/17 08:00 98.7 72 18 193/140 (157) 95 09/13/17 07:49 Nasal Cannula 3.00 09/13/17 04:13 98.7 73 20 112/59 (76) 97 09/13/17 00:14 98.7 66 18 106/61 (76) 97 09/13/17 00:00 63 09/12/17 21:00 59 09/12/17 20:57 97 Nasal Cannula 4.00 09/12/17 19:58 98.0 64 20 110/65 (80) 96 09/12/17 15:13 98.0 88 19 120/76 (91) 91 09/12/17 11:29 98.1 64 21 121/69 (86) 98 Result Diagram: 09/11/17 0646 09/13/17 0422 Other Results Laboratory Tests Test 09/10/17 11:24 09/10/17 13:49 09/10/17 14:30 09/11/17 06:46 White Blood Count 7.7 TH/MM3 6.7 TH/MM3 Red Blood Count 5.05 MIL/MM3 4.68 MIL/MM3 Hemoglobin 14.0 GM/DL 13.0 GM/DL Hematocrit 42.7 % 40.3 % Mean Corpuscular Volume 84.4 FL 86.1 FL Mean Corpuscular Hemoglobin 27.7 PG 27.9 PG Mean Corpuscular Hemoglobin Concent 32.8 % 32.4 % Red Cell Distribution Width 15.8 % 15.4 % Platelet Count 217 TH/MM3 201 TH/MM3 Mean Platelet Volume 8.4 FL 8.7 FL Neutrophils (%) (Auto) 81.5 % 75.4 % Lymphocytes (%) (Auto) 9.6 % 10.9 % Monocytes (%) (Auto) 6.9 % 9.8 % Eosinophils (%) (Auto) 0.8 % 2.4 % Basophils (%) (Auto) 1.2 % 1.5 % Neutrophils # (Auto) 6.3 TH/MM3 5.1 TH/MM3 Lymphocytes # (Auto) 0.7 TH/MM3 0.7 TH/MM3 Monocytes # (Auto) 0.5 TH/MM3 0.7 TH/MM3 Eosinophils # (Auto) 0.1 TH/MM3 0.2 TH/MM3 Basophils # (Auto) 0.1 TH/MM3 0.1 TH/MM3 CBC Comment DIFF FINAL DIFF FINAL Differential Comment Prothrombin Time 10.7 SEC Prothromb Time International Ratio 1.1 RATIO Activated Partial Thromboplast Time 26.4 SEC Blood Urea Nitrogen 26 MG/DL 33 MG/DL Creatinine 1.60 MG/DL 1.68 MG/DL Random Glucose 110 MG/DL 85 MG/DL Total Protein 7.6 GM/DL Albumin 3.8 GM/DL Calcium Level 9.2 MG/DL 8.7 MG/DL Magnesium Level 2.5 MG/DL Alkaline Phosphatase 88 U/L Aspartate Amino Transf (AST/SGOT) 17 U/L Alanine Aminotransferase (ALT/SGPT) 24 U/L Total Bilirubin 0.3 MG/DL Sodium Level 141 MEQ/L 139 MEQ/L Potassium Level 4.2 MEQ/L 4.3 MEQ/L Chloride Level 102 MEQ/L 101 MEQ/L Carbon Dioxide Level 33.6 MEQ/L 32.7 MEQ/L Anion Gap 5 MEQ/L 5 MEQ/L Estimat Glomerular Filtration Rate 45 ML/MIN 42 ML/MIN Total Creatine Kinase 51 U/L 43 U/L Troponin I LESS THAN 0.02 NG/ML LESS THAN 0.02 NG/ML B-Type Natriuretic Peptide 103 PG/ML Urine Color YELLOW Urine Turbidity CLEAR Urine pH 6.0 Urine Specific Noonan 1.012 Urine Protein NEG mg/dL Urine Glucose (UA) NEG mg/dL Urine Ketones NEG mg/dL Urine Occult Blood NEG Urine Nitrite NEG Urine Bilirubin NEG Urine Urobilinogen LESS THAN 2.0 MG/DL Urine Leukocyte Esterase NEG Urine RBC LESS THAN 1 /hpf Urine Hyaline Casts 25 /lpf Urine Mucus FEW /lpf Microscopic Urinalysis Comment CULT NOT INDICATED Test 09/12/17 15:59 09/13/17 04:22 D-Dimer Quantitative (PE/DVT) 0.59 MG/L FEU Blood Urea Nitrogen 40 MG/DL Creatinine 1.99 MG/DL Random Glucose 80 MG/DL Calcium Level 8.6 MG/DL Sodium Level 139 MEQ/L Potassium Level 4.5 MEQ/L Chloride Level 98 MEQ/L Carbon Dioxide Level 37.5 MEQ/L Anion Gap 4 MEQ/L Estimat Glomerular Filtration Rate 35 ML/MIN Imaging Last 24 hours Impressions Chest X-Ray 09/10/17 1112 Signed Impressions: Service Date/Time: Sunday, September 10, 2017 11:25 - CONCLUSION: Compensated cardiomegaly otherwise negative aerated. Pacer, previous bypass. Anil Ruvalcaba MD FACR Head CT 09/10/17 0000 Signed Impressions: Service Date/Time: Sunday, September 10, 2017 12:15 - CONCLUSION: 1. No acute findings in the brain. oRd Montes MD Objective Remarks GENERAL: This is an obese 36-year-old male patient who appears uncomfortable CARDIOVASCULAR: Regular rate and rhythm RESPIRATORY: Clear to auscultation. Breath sounds equal bilaterally. GASTROINTESTINAL: Abdomen soft, non-tender, nondistended. No guarding. MUSCULOSKELETAL: Extremities without clubbing, cyanosis, or edema. No joint tenderness, effusion, or edema noted. No calf tenderness. Negative Homans sign bilaterally. NEUROLOGICAL: Awake and alert. No focal deficits pressure. Motor and sensory grossly within normal limits. Five out of 5 muscle strength in all muscle groups. Normal speech. A/P Problem List: (1) Syncope ICD Codes: R55 - Syncope and collapse Status: Acute Plan: -near syncopal episode with hypoxia was off oxygen normally on 2 liters at home will observe -Patient complains of dizziness worse with moving his head from side to side feels as though the room is spinning. -Orthostatic vital signs reviewed and not suggestive of orthostatic hypotension -patient's dizziness improved with Antivert every 8 hours -PT consult pending (2) SOB (shortness of breath) ICD Codes: R06.02 - Shortness of breath Status: Chronic Plan: -monitor no evidence of chf -Patient appears to be at his baseline shortness of breath (3) Chest pain ICD Codes: R07.9 - Chest pain Status: Acute Plan: -more atypical 2 sets troponin negative -Patient does however have a cardiac history and is complaining of intermittent bilateral chest pain. Discussed case with patient's outpatient retail parts professional Dr. Brice who recommended Lexiscan. -Lexiscan reviewed and reveals: Small focal area of moderate reversibility in the anterior wall of the mid left ventricle. Large fixed decreased perfusion defect involving the inferior half of the left ventricle, characteristic of an old infarct and scar. Global hypokinesis with significantly reduced left ventricular ejection fraction calculated at 28%. This represents a decrease from the prior study when it was calculated at 48%. -Results discussed with Dr. Brice who recommends 2-D echocardiogram to further evaluate ejection fraction (4) Acute kidney injury superimposed on chronic kidney disease ICD Codes: N17.9 - Acute kidney failure, unspecified; N18.9 - Chronic kidney disease, unspecified Plan: Creatinine elevated 1.99 estimated GFR 35 Patient's baseline creatinine is around 1.6-1.8 Patient appears to be volume overloaded will DC IV fluids Start diuresis revaluate tomorrow Assessment and Plan Patient examined. Assessment and plan formulated with Tennille Germain PA-C. I agree with the above. Case d/w Cardiology, Dr. Brice (09/13) Worsening EF noted on lexiscan. Will obtain Echocardiogram Worsening CR noted. In past had difficulties with fluid retention and weight gain. pt's CR has improved with diuresis. Stop IVFs, start IV lasix. 09/13/17 - Nursing alerted me that pt's spouse Marjorie wanted me to call her. - Marjorie had a number of complaints. - Marjorie was upset that ER physician had originally suggested discharge - Also, upset that I had ordered IV lasix - Marjorie feels that pt does NOT do well with lasix - Pt had NOT yet received any IV lasix. I have cancelled the IV lasix - upset that pt NOT in [facility] - upset that echocardiogram had NOT yet been completed - I did try to address these concerns, but Marjorie remained upset. - I recommended transferring the pt to another physician - I spoke with Dr. Judy Lindsay [facility]. Dr. Lindsay has graciously accepted the pt and I have transferred the pt to Dr. Lindsay's service. Problem Qualifiers (1) Chest pain: Qualified Codes: R07.9 - Chest pain, unspecified Tennille Germain Sep 13, 2017 11:16 Sunny Jenkins DO Sep 13, 2017 11:47
[2017-09-13] MEDS ORDERED: FUROSEMIDE 40 MG/4 ML VIAL IV PUSH SCH ×2 (18:00)
[2017-09-13] MEDS: METOPROLOL TARTRATE 25 MG TAB PO SCH (22:01)
[2017-09-14] VITALS (11 sets, daily range): BP systolic 95–131; BP diastolic 50–82; PULSE 59–69; RESP 17–22; TEMP 97.9–98.2; O2SAT 93–95
[2017-09-14] MEDS: MECLIZINE HCL 25 MG TAB PO SCH ×2 (05:46→10:49)
--- NOTE | 2017-09-14 08:13 | PD.CARD.PN ---
Subjective Subjective Remarks Continued episodes of chest pain, but less severe overnight. Breathing remains at baseline. Denies any leg swelling. Objective Medications Current Medications Medications (Trade) Dose Ordered Sig/Luis Route Start Time Stop Time Status Last Admin (Zyloprim) 300 mg DAILY PO 09/11/17 09:00 09/13/17 09:53 (Xanax) 0.25 mg TID PRN PO 09/10/17 21:30 09/13/17 22:09 (Cordarone) 200 mg BID PO 09/10/17 22:00 09/13/17 22:01 (Ecotrin Ec) 81 mg DAILY PO 09/11/17 09:00 09/13/17 09:53 (Plavix) 75 mg DAILY PO 09/11/17 09:00 09/13/17 09:53 (Atrovent Neb) 0.5 mg TID NEB PRN NEB 09/10/17 21:30 (Imdur) 30 mg DAILY PO 09/11/17 09:00 09/13/17 09:54 (Lopressor) 25 mg BID PO 09/10/17 22:00 Future hold 09/13/17 22:01 (Nitrostat Sl) 0.4 mg UNSCH PRN SL 09/10/17 21:30 (KCl) 20 meq TID PO 09/11/17 09:00 09/13/17 18:57 (Lyrica) 50 mg TID PO 09/11/17 09:00 09/13/17 18:57 (Flomax) 0.4 mg DAILY PO 09/11/17 09:00 09/13/17 09:54 (Ultram) 50 mg QID PRN PO 09/10/17 21:30 09/13/17 01:42 (Proair Hfa Inh) 2 puff Q6H PRN INH 09/10/17 22:45 (Pepcid) 10 mg Q12HR PO 09/11/17 09:00 09/13/17 22:01 (Bumetanide) 2 mg BID@,18 PO 09/11/17 09:00 09/13/17 18:57 (NS Flush) 2 ml UNSCH PRN IV FLUSH 09/10/17 22:45 (NS Flush) 2 ml BID IV FLUSH 09/11/17 09:00 09/13/17 22:00 (Zofran Inj) 4 mg Q6H PRN IVP 09/10/17 22:45 09/13/17 01:42 (Tylenol) 650 mg Q6H PRN PO 09/10/17 22:45 09/12/17 13:33 (Narcan Inj) 0.4 mg UNSCH PRN IV PUSH 09/10/17 22:45 (Madelaine-Colace) 1 tab BID PO 09/11/17 09:00 09/13/17 22:06 (Milk Of Magnesia Liq) 30 ml Q12H PRN PO 09/10/17 22:45 (Senokot) 17.2 mg Q12H PRN PO 09/10/17 22:45 (Dulcolax Supp) 10 mg DAILY PRN RECTAL 09/10/17 22:45 (Lactulose Liq) 30 ml DAILY PRN PO 09/10/17 22:45 (Antivert) 25 mg Q6H PO 09/12/17 16:00 09/14/17 05:46 Vital Signs / I&O Vital Signs Date Time Temp Pulse Resp B/P (MAP) Pulse Ox O2 Delivery O2 Flow Rate FiO2 09/14/17 07:45 98.2 64 18 107/68 (81) 93 131/77 (95) 09/14/17 03:48 98.1 69 17 129/82 (98) 95 09/14/17 00:19 98.2 62 17 115/72 (86) 93 09/13/17 20:19 98.4 65 18 125/58 (80) 92 09/13/17 16:00 99.2 60 18 103/57 (72) 94 09/13/17 12:00 98.2 65 18 137/73 (94) 93 I/O 09/13/17 09/13/17 09/13/17 09/14/17 09/14/17 09/14/17 07:00 15:00 23:00 07:00 15:00 23:00 Intake Total 240 ml Output Total 1550 ml 650 ml 700 ml Balance -1550 ml -410 ml -700 ml Intake Oral 240 ml Output Urine Total 1550 ml 650 ml 700 ml Physical Exam GENERAL: Well-developed well-nourished. In no acute distress. A bit anxious. NECK: No carotid bruits. No JVD. CARDIOVASCULAR: Regular rate and rhythm. No murmur appreciated. RESPIRATORY: No accessory muscle use. Clear to auscultation. Breath sounds equal bilaterally. MUSCULOSKELETAL: No clubbing or cyanosis. No edema. NEUROLOGICAL: Awake and alert. Normal speech. Some tremors. Imaging Last Impressions Myocardial Perfusion Scan [facility] 09/12/17 0000 Signed Impressions: Service Date/Time: September 10:07 - CONCLUSION: 1. Small focal area of moderate reversibility in the anterior wall of the mid left ventricle. 2. Large fixed decreased perfusion defect involving the inferior half of the left ventricle, characteristic of old infarct and scar. 3. Global hypokinesia with significantly reduced left ventricular ejection fraction calculated at 28%%. This represents a decrease from the prior study when it was calculated at 48%%.. RISK CATEGORY: High (>3%% Annual Mortality Rate) Pj Arellano MD Chest CT 09/11/17 0600 Signed Impressions: Service Date/Time: Monday, September 11, 2017 03:29 - CONCLUSION: 1. Stable moderate elevation of the right hemidiaphragm with apparent scarring and stable pleural thickening. 2. Calcified pleural plaques are again noted. 3. Status post median sternotomy for bypass grafting with postsurgical change. Patrice Hendricks MD Chest X-Ray 09/10/17 1112 Signed Impressions: Service Date/Time: Sunday, September 10, 2017 11:25 - CONCLUSION: Compensated cardiomegaly otherwise negative aerated. Pacer, previous bypass. Anil Ruvalcaba MD FACR Head CT 09/10/17 0000 Signed Impressions: Service Date/Time: Sunday, September 10, 2017 12:15 - CONCLUSION: 1. No acute findings in the brain. Rod Montes MD Assessment and Plan Assessment and Plan 56 y/o WM with significant cardiac history to include MS 9, CHF with EF 50% and grade 1 diastolic dysfunction on echo from 02/2016, CAD s/p CABG 6, AICD, hypertension, and COPD who presented for chest discomfort, shortness breath, lightheadedness. Atypical chest pain with extensive history of CAD: Troponins within normal limits. EKG with paced rhythm. Lexiscan showed a small focal area of moderate reversibility in the anterior wall of the mid left ventricle, large fixed defect involving the inferior half of the left ventricle, decreased EF 28%. Check d-dimer is mildly elevated, could consider V/Q if stress test negative after washout. Continue Plavix, metoprolol, aspirin. Check echocardiogram. [facility] Mon prob. Shubham Chinchilla Sep 14, 2017 08:13
[2017-09-14] MEDS: POTASSIUM CHLORIDE 20 MEQ CONTROLLED RELEASE TAB PO SCH ×3 (08:50→18:19)
[2017-09-14] MEDS: DOCUSATE SODIUM 50 MG/SENNA 8.6 MG TAB PO SCH ×2 (08:50→20:09)
[2017-09-14] MEDS: CLOPIDOGREL 75 MG TAB PO SCH (08:50)
[2017-09-14] MEDS: PREGABALIN 25 MG CAP PO SCH ×3 (08:50→18:19)
[2017-09-14] MEDS: ASPIRIN EC 81 MG TABEC PO SCH (08:50)
[2017-09-14] MEDS: METOPROLOL TARTRATE 25 MG TAB PO SCH ×2 (08:50→20:09)
[2017-09-14] MEDS: SODIUM CHLORIDE 0.9% FLUSH 10 ML FLUSH IV FLUSH SCH ×2 (08:50→20:10)
[2017-09-14] MEDS: FAMOTIDINE 20 MG TAB PO SCH ×2 (08:51→20:09)
[2017-09-14] MEDS: AMIODARONE 200 MG TAB PO SCH ×2 (08:51→20:09)
[2017-09-14] MEDS: ALLOPURINOL 300 MG TAB PO SCH (08:51)
[2017-09-14] MEDS: BUMETANIDE 1 MG TAB PO SCH ×2 (08:51→18:20)
[2017-09-14] MEDS: TAMSULOSIN HCL 0.4 MG CAP PO SCH (08:51)
[2017-09-14] MEDS: ALPRAZolam 0.25 MG TAB PO PRN (08:51)
[2017-09-14] MEDS: ISOSORBIDE MONONITRATE 30 MG TAB PO SCH (08:51)
[2017-09-14] MEDS ORDERED: MECLIZINE HCL 25 MG TAB PO PRN (12:30)
--- NOTE | 2017-09-14 12:38 | HHI.PR ---
Subjective Remarks The patient says he has been feeling weak. He says he has twitches of his body and has followed with neurology for that. He also follows with nephrology. He says his breathing is little bit better. He denies any chest pain at this time. Objective Vitals Vital Signs Date Time Temp Pulse Resp B/P (MAP) Pulse Ox O2 Delivery O2 Flow Rate FiO2 09/14/17 12:01 98.0 64 18 95/52 (66) 94 100/64 (76) 95/63 (74) Manual Cuff/Auscultation 09/14/17 09:25 93 21 09/14/17 08:30 61 09/14/17 07:45 98.2 64 18 107/68 (81) 93 131/77 (95) 09/14/17 03:48 98.1 69 17 129/82 (98) 95 09/14/17 00:19 98.2 62 17 115/72 (86) 93 09/13/17 20:19 98.4 65 18 125/58 (80) 92 09/13/17 16:00 99.2 60 18 103/57 (72) 94 I/O 09/13/17 09/13/17 09/13/17 09/14/17 09/14/17 09/14/17 07:00 15:00 23:00 07:00 15:00 23:00 Intake Total 240 ml 720 ml Output Total 1550 ml 650 ml 1550 ml Balance -1550 ml -410 ml -830 ml Intake Oral 240 ml 720 ml Output Urine Total 1550 ml 650 ml 1550 ml Result Diagram: 09/11/17 0646 09/13/17 0422 Imaging Last Impressions Myocardial Perfusion Scan Nuc Med 09/12/17 0000 Signed Impressions: Service Date/Time: September 10:07 - CONCLUSION: 1. Small focal area of moderate reversibility in the anterior wall of the mid left ventricle. 2. Large fixed decreased perfusion defect involving the inferior half of the left ventricle, characteristic of old infarct and scar. 3. Global hypokinesia with significantly reduced left ventricular ejection fraction calculated at 28%%. This represents a decrease from the prior study when it was calculated at 48%%.. RISK CATEGORY: High (>3%% Annual Mortality Rate) Pj Arellano MD Chest CT 09/11/17 0600 Signed Impressions: Service Date/Time: Monday, September 11, 2017 03:29 - CONCLUSION: 1. Stable moderate elevation of the right hemidiaphragm with apparent scarring and stable pleural thickening. 2. Calcified pleural plaques are again noted. 3. Status post median sternotomy for bypass grafting with postsurgical change. Patrice Hendricks MD Chest X-Ray 09/10/17 1112 Signed Impressions: Service Date/Time: Sunday, September 10, 2017 11:25 - CONCLUSION: Compensated cardiomegaly otherwise negative aerated. Pacer, previous bypass. Anil Ruvalcaba MD FACR Head CT 09/10/17 0000 Signed Impressions: Service Date/Time: Sunday, September 10, 2017 12:15 - CONCLUSION: 1. No acute findings in the brain. Rod Montes MD Objective Remarks GENERAL: In no apparent distress. CARDIOVASCULAR: Regular rate and rhythm. HEENT: NC, AT. RESPIRATORY: Crackles in the bilateral bases. GASTROINTESTINAL: Abdomen soft, non-tender, nondistended. No guarding. MUSCULOSKELETAL: Extremities without clubbing, cyanosis, or edema. No joint tenderness, effusion, or edema noted. NEUROLOGICAL: Awake and alert. Intermittent twitching of the extremities. Motor and sensory grossly within normal limits. Five out of 5 muscle strength in all muscle groups. Normal speech. Medications and IVs Current Medications Medications (Trade) Dose Ordered Sig/Luis Route Start Time Stop Time Status Last Admin (Zyloprim) 300 mg DAILY PO 09/11/17 09:00 09/14/17 08:51 (Xanax) 0.25 mg TID PRN PO 09/10/17 21:30 09/14/17 08:51 (Cordarone) 200 mg BID PO 09/10/17 22:00 09/14/17 08:51 (Ecotrin Ec) 81 mg DAILY PO 09/11/17 09:00 09/14/17 08:50 (Plavix) 75 mg DAILY PO 09/11/17 09:00 09/14/17 08:50 (Atrovent Neb) 0.5 mg TID NEB PRN NEB 09/10/17 21:30 (Imdur) 30 mg DAILY PO 09/11/17 09:00 09/14/17 08:51 (Lopressor) 25 mg BID PO 09/10/17 22:00 Future hold 09/14/17 08:50 (Nitrostat Sl) 0.4 mg UNSCH PRN SL 09/10/17 21:30 (KCl) 20 meq TID PO 09/11/17 09:00 09/14/17 12:08 (Lyrica) 50 mg TID PO 09/11/17 09:00 09/14/17 12:08 (Flomax) 0.4 mg DAILY PO 09/11/17 09:00 09/14/17 08:51 (Ultram) 50 mg QID PRN PO 09/10/17 21:30 09/13/17 01:42 (Proair Hfa Inh) 2 puff Q6H PRN INH 09/10/17 22:45 (Pepcid) 10 mg Q12HR PO 09/11/17 09:00 09/14/17 08:51 (Bumetanide) 2 mg BID@09,18 PO 09/11/17 09:00 09/14/17 08:51 (NS Flush) 2 ml UNSCH PRN IV FLUSH 09/10/17 22:45 (NS Flush) 2 ml BID IV FLUSH 09/11/17 09:00 09/14/17 08:50 (Zofran Inj) 4 mg Q6H PRN IVP 09/10/17 22:45 09/13/17 01:42 (Tylenol) 650 mg Q6H PRN PO 09/10/17 22:45 09/12/17 13:33 (Narcan Inj) 0.4 mg UNSCH PRN IV PUSH 09/10/17 22:45 (Madelaine-Colace) 1 tab BID PO 09/11/17 09:00 09/14/17 08:50 (Milk Of Magnesia Liq) 30 ml Q12H PRN PO 09/10/17 22:45 (Senokot) 17.2 mg Q12H PRN PO 09/10/17 22:45 (Dulcolax Supp) 10 mg DAILY PRN RECTAL 09/10/17 22:45 (Lactulose Liq) 30 ml DAILY PRN PO 09/10/17 22:45 (Antivert) 25 mg Q6H PO 09/12/17 16:00 09/14/17 10:49 A/P Problem List: (1) Syncope ICD Code: R55 - Syncope and collapse Status: Acute (2) SOB (shortness of breath) ICD Code: R06.02 - Shortness of breath Status: Chronic (3) Chest pain ICD Code: R07.9 - Chest pain Status: Acute (4) Acute kidney injury superimposed on chronic kidney disease ICD Code: N17.9 - Acute kidney failure, unspecified; N18.9 - Chronic kidney disease, unspecified Assessment and Plan Syncope/ Weakness Patient complains of dizziness worse with moving his head from side to side and feels as though the room is spinning. Orthostatic vital signs reviewed and not suggestive of orthostatic hypotension. Patient's dizziness improved with Antivert every 8 hours. The pt also complains of generalized weakness and body twitches which he has had chronically. - make Antivert PRN. - PT/ OT. - check TSH/ B12 levels. Chest pain/ CHF/ Shortness of breath Patient was complaining of intermittent bilateral chest pain. Discussed case with patient's outpatient polisher balance screwhead Dr. Brice who recommended Lexiscan. Lexiscan reviewed and reveals: Small focal area of moderate reversibility in the anterior wall of the mid left ventricle. Large fixed decreased perfusion defect involving the inferior half of the left ventricle, characteristic of an old infarct and scar; Global hypokinesis with significantly reduced left ventricular ejection fraction calculated at 28%. CXR unremarkable. - echocardiogram pending. - cardiology following. - oxygen as needed. - continue Bumex. Acute kidney injury superimposed on chronic kidney disease Creatinine elevated at 1.99. Patient's baseline creatinine is around 1.6-1.8. Patient appears to be volume overloaded. - continue Bumex. - follow BMP. Consult nephrology if creatinine increasing. - avoid nephrotoxic agents. PPx: Heparin Discharge Planning Awaiting further workup Problem Qualifiers (1) Chest pain: Qualified Codes: R07.9 - Chest pain, unspecified Patrice Huertas DO Sep 14, 2017 12:38
[2017-09-14] MEDS ORDERED: PILL SPLITTER OTHER PRN (12:45)
[2017-09-14 14:13] LABS: BICARBONATE 43.5 MEQ/L (21.0-32.0); POTASSIUM 4.5 MEQ/L (3.5-5.1)
--- NOTE | 2017-09-14 17:33 | ECHRPT ---
Indication: HEART FAILURE CONCLUSIONS The left ventricular systolic function is low normal with an estimated ejection fraction in the rang e of 50- 55%. Normal left ventricular size. Wall thickness is normal. No regional wall motion abnormalities are present. Trace mitral valve regurgitation. Aortic valve sclerosis is present. There is trace tricuspid valve regurgitation. The estimated pulmonary arterial pressure is 32.8 mmHg. Trivial pulmonary valve regurgitation. BP: 112 / 72 HR: 72 Rhythm: Other MEASUREMENTS (Male / Female) Normal Values Technical Quality:Fair 2D ECHO LVOT Diameter 2.1 cm LV Ejection Fraction MOD 4C 51.2 % LV Cardiac Index MOD 4C 2029.3 cm/minm LV Ejection Fraction 4C AL 52.5 % LV Cardiac Index 4C AL 2138.2 cm/minm M-MODE Aortic Root Diameter MM 3.4 cm AV Cusp Separation MM 1.8 cm DOPPLER AV Peak Velocity 156.0 cm/s AV Peak Gradient 9.7 mmHg LVOT Peak Velocity 117.0 cm/s LVOT Peak Gradient 5.5 mmHg AV Area Cont Eq pk 2.6 cm MV Area PHT 3.2 cm Mitral E Point Velocity 92.8 cm/s Mitral A Point Velocity 74.0 cm/s Mitral E to A Ratio 1.3 LV E' Lateral Velocity 8.8 cm/s Mitral E to LV E' Lateral Ratio 10.6 LV E' Septal Velocity 4.1 cm/s Mitral E to LV E' Septal Ratio 22.7 TR Peak Velocity 239.0 cm/s TR Peak Gradient 22.8 mmHg Right Atrial Pressure 10.0 mmHg Pulmonary Artery Systolic Pressu 32.8 mmHg Right Ventricular Systolic Press 32.8 mmHg PV Peak Velocity 102.0 cm/s PV Peak Gradient 4.2 mmHg FINDINGS LEFT VENTRICLE The left ventricular systolic function is low normal with an estimated ejection fraction in the rang e of 50- 55%. Normal left ventricular size. Wall thickness is normal. No regional wall motion abnormalities are present. RIGHT VENTRICLE Normal right ventricular size and systolic function. LEFT ATRIUM The left atrial size is normal. RIGHT ATRIUM The right atrial size is normal. ATRIAL SEPTUM Normal atrial septal thickness without atrial level shunting by limited color doppler interrogation. AORTA The aortic root and proximal ascending aorta are normal in size on limited imaging. MITRAL VALVE Structurally normal mitral valve. Trace mitral valve regurgitation. AORTIC VALVE Trileaflet aortic valve. No aortic valve stenosis or regurgitation. Aortic valve sclerosis is present. TRICUSPID VALVE Structurally normal tricuspid valve. There is trace tricuspid valve regurgitation. The estimated pulmonary arterial pressure is 32.8 mmHg. PULMONARY VALVE Trivial pulmonary valve regurgitation. VESSELS The inferior vena cava is normal in size. PERICARDIUM No pericardial effusion. Yobani Doan MD, FACC (Electronically Signed) Final Date:14 September 2017 17:31
[2017-09-14] MEDS: NITROGLYCERIN 0.4 MG SL 25 TABS/BTL SL PRN (20:16)
[2017-09-15] VITALS (11 sets, daily range): BP systolic 98–144; BP diastolic 55–96; PULSE 59–70; RESP 18–21; TEMP 97.6–99; O2SAT 94–97
[2017-09-15] MEDS: traMADol HCL 50 MG TAB PO PRN ×3 (05:05→20:15)
--- NOTE | 2017-09-15 08:18 | PD.CARD.PN ---
Subjective Subjective Remarks Chest pain and dizziness are improving, feels like whatever we are doing is working. Breathing remains at baseline. Reports he feels like he is getting a gout exacerbation in his feet. (Shubham Chinchilla) Objective Medications Current Medications Medications (Trade) Dose Ordered Sig/Luis Route Start Time Stop Time Status Last Admin (Zyloprim) 300 mg DAILY PO 09/11/17 09:00 09/14/17 08:51 (Cordarone) 200 mg BID PO 09/10/17 22:00 09/14/17 20:09 (Ecotrin Ec) 81 mg DAILY PO 09/11/17 09:00 09/14/17 08:50 (Plavix) 75 mg DAILY PO 09/11/17 09:00 09/14/17 08:50 (Atrovent Neb) 0.5 mg TID NEB PRN NEB 09/10/17 21:30 (Imdur) 30 mg DAILY PO 09/11/17 09:00 09/14/17 08:51 (Lopressor) 25 mg BID PO 09/10/17 22:00 Future hold 09/14/17 20:09 (Nitrostat Sl) 0.4 mg UNSCH PRN SL 09/10/17 21:30 09/14/17 20:16 (KCl) 20 meq TID PO 09/11/17 09:00 09/14/17 18:19 (Lyrica) 50 mg TID PO 09/11/17 09:00 09/14/17 18:19 (Flomax) 0.4 mg DAILY PO 09/11/17 09:00 09/14/17 08:51 (Ultram) 50 mg QID PRN PO 09/10/17 21:30 09/15/17 05:05 (Proair Hfa Inh) 2 puff Q6H PRN INH 09/10/17 22:45 (Pepcid) 10 mg Q12HR PO 09/11/17 09:00 09/14/17 20:09 (Bumetanide) 2 mg BID@,18 PO 09/11/17 09:00 09/14/17 18:20 (NS Flush) 2 ml UNSCH PRN IV FLUSH 09/10/17 22:45 (NS Flush) 2 ml BID IV FLUSH 09/11/17 09:00 09/14/17 20:10 (Zofran Inj) 4 mg Q6H PRN IVP 09/10/17 22:45 09/13/17 01:42 (Tylenol) 650 mg Q6H PRN PO 09/10/17 22:45 09/12/17 13:33 (Narcan Inj) 0.4 mg UNSCH PRN IV PUSH 09/10/17 22:45 (Madelaine-Colace) 1 tab BID PO 09/11/17 09:00 09/14/17 20:09 (Milk Of Magnesia Liq) 30 ml Q12H PRN PO 09/10/17 22:45 (Senokot) 17.2 mg Q12H PRN PO 09/10/17 22:45 (Dulcolax Supp) 10 mg DAILY PRN RECTAL 09/10/17 22:45 (Lactulose Liq) 30 ml DAILY PRN PO 09/10/17 22:45 (Xanax) 0.125 mg TID PRN PO 09/14/17 12:30 (Antivert) 25 mg Q8H PRN PO 09/14/17 12:30 (Pill Splitter) 1 ea UNSCH PRN OTHER 09/14/17 12:45 Vital Signs / I&O Vital Signs Date Time Temp Pulse Resp B/P (MAP) Pulse Ox O2 Delivery O2 Flow Rate FiO2 09/15/17 04:00 97.6 67 21 99/58 (72) 96 09/15/17 04:00 66 09/15/17 00:00 98.1 68 20 105/59 (74) 94 09/15/17 00:00 61 09/14/17 23:30 93 Nasal Cannula 3.00 09/14/17 21:00 Nasal Cannula 2.00 09/14/17 20:00 59 09/14/17 20:00 98.0 68 22 102/50 (67) 94 09/14/17 18:00 Nasal Cannula 2.00 09/14/17 17:01 59 09/14/17 16:35 97.9 65 18 117/68 (84) 94 09/14/17 12:10 65 09/14/17 12:01 98.0 64 18 95/52 (66) 94 100/64 (76) 95/63 (74) Manual Cuff/Auscultation 09/14/17 09:25 93 21 09/14/17 08:30 61 I/O 09/14/17 09/14/17 09/14/17 09/15/17 09/15/17 09/15/17 07:00 15:00 23:00 07:00 15:00 23:00 Intake Total 720 ml 540 ml Output Total 2150 ml 350 ml 1700 ml Balance -1430 ml -350 ml -1160 ml Intake Oral 720 ml 540 ml Output Urine Total 2150 ml 350 ml 1700 ml # Bowel Movements 0 Physical Exam GENERAL: Well-developed well-nourished. In no acute distress. Appears less anxious. NECK: No carotid bruits. No JVD. CARDIOVASCULAR: Regular rate and rhythm. No murmur appreciated. RESPIRATORY: No accessory muscle use. Clear to auscultation. Breath sounds equal bilaterally. MUSCULOSKELETAL: No clubbing or cyanosis. No edema. NEUROLOGICAL: Awake and alert. Normal speech. Laboratory Laboratory Tests Test 09/14/17 12:35 Blood Urea Nitrogen 41 MG/DL Creatinine 2.04 MG/DL Random Glucose 104 MG/DL Calcium Level 9.0 MG/DL Sodium Level 140 MEQ/L Potassium Level 4.5 MEQ/L Chloride Level 97 MEQ/L Carbon Dioxide Level 43.5 MEQ/L Anion Gap -1 MEQ/L Estimat Glomerular Filtration Rate 34 ML/MIN Vitamin B12 Level 524 PG/ML Thyroid Stimulating Hormone 3rd Gen 0.681 uIU/ML Imaging Last Impressions Myocardial Perfusion Scan Nuc Med 09/12/17 0000 Signed Impressions: Service Date/Time: September 10:07 - CONCLUSION: 1. Small focal area of moderate reversibility in the anterior wall of the mid left ventricle. 2. Large fixed decreased perfusion defect involving the inferior half of the left ventricle, characteristic of old infarct and scar. 3. Global hypokinesia with significantly reduced left ventricular ejection fraction calculated at 28%%. This represents a decrease from the prior study when it was calculated at 48%%.. RISK CATEGORY: High (>3%% Annual Mortality Rate) Pj Arellano MD Chest CT 09/11/17 0600 Signed Impressions: Service Date/Time: Monday, September 11, 2017 03:29 - CONCLUSION: 1. Stable moderate elevation of the right hemidiaphragm with apparent scarring and stable pleural thickening. 2. Calcified pleural plaques are again noted. 3. Status post median sternotomy for bypass grafting with postsurgical change. Patrice Hendricks MD Chest X-Ray 09/10/17 1112 Signed Impressions: Service Date/Time: Sunday, September 10, 2017 11:25 - CONCLUSION: Compensated cardiomegaly otherwise negative aerated. Pacer, previous bypass. Anil Ruvalcaba MD FACR Head CT 09/10/17 0000 Signed Impressions: Service Date/Time: Sunday, September 10, 2017 12:15 - CONCLUSION: 1. No acute findings in the brain. Rod Montes MD (Shubham Chinchilla) Assessment and Plan Assessment and Plan 56 y/o WM with significant cardiac history to include AL 9, CHF with EF 50% and grade 1 diastolic dysfunction on echo from 02/2016, CAD s/p CABG 6, AICD, hypertension, and COPD who presented for chest discomfort, shortness breath, lightheadedness. Atypical chest pain with extensive history of CAD: Troponins within normal limits. EKG with paced rhythm. Lexiscan showed a small focal area of moderate reversibility in the anterior wall of the mid left ventricle, large fixed defect involving the inferior half of the left ventricle. Check d-dimer is mildly elevated, could consider V/Q if stress test negative after washout. Continue Plavix, metoprolol, aspirin. Echocardiogram with normal systolic function, EF 50-55 %. [facility] Mon prob, Dr. Brice to evaluate. TWIN on CKD: Creatinine increasing, caution with diuresis and normal EF. (Shubham Chinchilla) Assessment and Plan no CP abn lexiscan Cr worsening gout in feet worsening hold Bumex doubt [facility] tomorrow given worsening renal function, but will let Dr. Brice decide tomorrow am nephrology consulted (Yobani Doan MD) Shubham Chinchilla Sep 15, 2017 08:18 Yobani Doan MD Sep 15, 2017 09:36
[2017-09-15] MEDS: TAMSULOSIN HCL 0.4 MG CAP PO SCH (08:53)
[2017-09-15] MEDS: BUMETANIDE 1 MG TAB PO SCH (08:54)
[2017-09-15] MEDS: ASPIRIN EC 81 MG TABEC PO SCH (08:54)
[2017-09-15] MEDS: POTASSIUM CHLORIDE 20 MEQ CONTROLLED RELEASE TAB PO SCH ×3 (08:54→18:37)
[2017-09-15] MEDS: ALLOPURINOL 300 MG TAB PO SCH (08:54)
[2017-09-15] MEDS: PREGABALIN 25 MG CAP PO SCH ×3 (08:54→18:38)
[2017-09-15] MEDS: SODIUM CHLORIDE 0.9% FLUSH 10 ML FLUSH IV FLUSH SCH ×2 (08:55→20:11)
[2017-09-15] MEDS: DOCUSATE SODIUM 50 MG/SENNA 8.6 MG TAB PO SCH ×2 (08:55→20:11)
[2017-09-15] MEDS: AMIODARONE 200 MG TAB PO SCH ×2 (08:55→20:10)
[2017-09-15] MEDS: CLOPIDOGREL 75 MG TAB PO SCH (08:55)
[2017-09-15] MEDS: FAMOTIDINE 20 MG TAB PO SCH ×2 (08:55→20:11)
[2017-09-15] MEDS: METOPROLOL TARTRATE 25 MG TAB PO SCH ×2 (08:55→20:08)
[2017-09-15] MEDS: ISOSORBIDE MONONITRATE 30 MG TAB PO SCH (08:55)
--- NOTE | 2017-09-15 09:29 | HHI.PR ---
Subjective Remarks Follow-up dizziness, weakness, chest pain. Patient states that his chest pain has essentially resolved. Breathing has improved as well. Minimal dizziness today. His primary concern at this time is bilateral foot pain that has worsened this morning. He states that he has a history of gout and this feels the same. Objective Vitals Vital Signs Date Time Temp Pulse Resp B/P (MAP) Pulse Ox O2 Delivery O2 Flow Rate FiO2 09/15/17 07:00 94 Nasal Cannula 2.00 09/15/17 04:00 97.6 67 21 99/58 (72) 96 09/15/17 04:00 66 09/15/17 00:00 98.1 68 20 105/59 (74) 94 09/15/17 00:00 61 09/14/17 23:30 93 Nasal Cannula 3.00 09/14/17 21:00 Nasal Cannula 2.00 09/14/17 20:00 59 09/14/17 20:00 98.0 68 22 102/50 (67) 94 09/14/17 18:00 Nasal Cannula 2.00 09/14/17 17:01 59 09/14/17 16:35 97.9 65 18 117/68 (84) 94 09/14/17 12:10 65 09/14/17 12:01 98.0 64 18 95/52 (66) 94 100/64 (76) 95/63 (74) Manual Cuff/Auscultation 09/14/17 09:25 93 21 I/O 09/14/17 09/14/17 09/14/17 09/15/17 09/15/17 09/15/17 07:00 15:00 23:00 07:00 15:00 23:00 Intake Total 720 ml 540 ml Output Total 2150 ml 350 ml 1700 ml Balance -1430 ml -350 ml -1160 ml Intake Oral 720 ml 540 ml Output Urine Total 2150 ml 350 ml 1700 ml # Bowel Movements 0 Result Diagram: 09/11/17 0646 09/14/17 1235 Imaging Last Impressions Myocardial Perfusion Scan Nuc Med 09/12/17 0000 Signed Impressions: Service Date/Time: September 10:07 - CONCLUSION: 1. Small focal area of moderate reversibility in the anterior wall of the mid left ventricle. 2. Large fixed decreased perfusion defect involving the inferior half of the left ventricle, characteristic of old infarct and scar. 3. Global hypokinesia with significantly reduced left ventricular ejection fraction calculated at 28%%. This represents a decrease from the prior study when it was calculated at 48%%.. RISK CATEGORY: High (>3%% Annual Mortality Rate) Pj Arellano MD Chest CT 09/11/17 0600 Signed Impressions: Service Date/Time: Monday, September 11, 2017 03:29 - CONCLUSION: 1. Stable moderate elevation of the right hemidiaphragm with apparent scarring and stable pleural thickening. 2. Calcified pleural plaques are again noted. 3. Status post median sternotomy for bypass grafting with postsurgical change. Patrice Hendricks MD Chest X-Ray 09/10/17 1112 Signed Impressions: Service Date/Time: Sunday, September 10, 2017 11:25 - CONCLUSION: Compensated cardiomegaly otherwise negative aerated. Pacer, previous bypass. Anil Ruvalcaba MD FACR Head CT 09/10/17 0000 Signed Impressions: Service Date/Time: Sunday, September 10, 2017 12:15 - CONCLUSION: 1. No acute findings in the brain. Rod Montes MD Objective Remarks General: No acute distress. Heart: Regular rate and rhythm. No murmur. Lungs: Mild bibasilar crackles. Breathing is nonlabored. Abdomen: Soft, nontender, nondistended. Extremities: No lower extremity edema. Both feet are tender on the plantar surface medially. Psych: Alert and oriented. Urinary Catheter: No Vascular Central Line Catheter: No A/P Problem List: (1) Syncope ICD Code: R55 - Syncope and collapse Status: Acute (2) SOB (shortness of breath) ICD Code: R06.02 - Shortness of breath Status: Chronic (3) Chest pain ICD Code: R07.9 - Chest pain Status: Acute (4) Acute kidney injury superimposed on chronic kidney disease ICD Code: N17.9 - Acute kidney failure, unspecified; N18.9 - Chronic kidney disease, unspecified Assessment and Plan 1. Syncope/weakness/dizziness: Symptoms improving. Continue Antivert. PT/OT. 2. Chest pain: Patient has significant history of coronary artery disease including prior CABG. Lexiscan abnormal. Patient's swine nutritionist, Dr. Brice, to evaluate tomorrow and decide regarding catheterization. Chest pain has improved. Continue medical management at this time. 3. History of CHF: Dyspnea is improved. EF 55% on echocardiogram, 28% on Lexiscan. Appreciate cardiology recommendations. Continue Bumex. Oxygen as needed. 4. Acute kidney injury superimposed on chronic kidney disease: Patient's baseline creatinine is 1.6-1.8. Continue Bumex for fluid overload. Consult patient's artistic associate. Avoid nephrotoxic agents. Labs are pending today. 5. Bilateral foot pain, history of gout: Continue allopurinol, Lyrica. Add short burst of prednisone. 6. DVT prophylaxis: Heparin. Problem Qualifiers (1) Chest pain: Qualified Codes: R07.9 - Chest pain, unspecified Octavio Pace MD Sep 15, 2017 09:29
[2017-09-15] MEDS: predniSONE 20 MG TAB PO SCH (10:28)
[2017-09-15 13:32] LABS: BICARBONATE 40.4 MEQ/L (21.0-32.0); POTASSIUM 4.3 MEQ/L (3.5-5.1)
--- NOTE | 2017-09-15 14:17 | PD.CONS ---
HPI Service Nephrology Consult Requested By Dr. Pace Reason for Consult Acute and chronic kidney disease Primary Care Physician Dax Montana MD History of Present Illness Patient is a 56-year-old white male with history of atherosclerotic heart disease, previous [place], coronary artery bypass graft, AICD who has been admitted with lightheadedness and chest pain with shortness of breath his symptoms have improved and he was on Bumex however this was stopped as his creatinine was fluctuating he has contracture alkalosis as well Patient complains of bilateral feet pain and states that it feels like he is walking on a glass. He denies any dysuria burning as such his urine output is good. Review of Systems Constitutional: COMPLAINS OF: Fatigue Respiratory: COMPLAINS OF: Shortness of breath Musculoskeletal: COMPLAINS OF: Joint pain, Muscle aches, Stiffness, Joint Swelling, Back pain Psychiatric: COMPLAINS OF: Anxiety Past Family Social History Allergies: Coded Allergies: Sulfa (Sulfonamide Antibiotics) (Verified Allergy, Severe, HIVES, 07/13/17) oxycodone (Verified Allergy, Severe, RASH, 07/13/17) lorazepam (Verified Adverse Reaction, Severe, Confusion, 07/13/17) MAKES PT "CRAZY" Past Medical History He has workup for arthritis and he was told he has osteoarthritis Djd Anxiety Cad Gerd Ckd Htn kidney stones Past Surgical History Coronary artery bypass surgery appendix AICD pacer gallbladder hernia Reported Medications Reported Meds & Active Scripts Active Reported Bumetanide 2 Mg Tab 2 Mg PO BID Allopurinol 300 Mg Tab 300 Mg PO DAILY Alprazolam 0.25 Mg Tab 0.25 Mg PO TID PRN Amiodarone (Amiodarone HCl) 200 Mg Tab 200 Mg PO BID Aspirin EC (Aspirin) 81 Mg Tabdr 81 Mg PO DAILY Plavix (Clopidogrel Bisulfate) 75 Mg Tab 75 Mg PO DAILY Nitroglycerin SL (Nitroglycerin) 0.4 Mg Subl 0.4 Mg SL DIRECTED PRN ONE TABLET UNDER THE TONGUE NEEDED FOR CHEST PAIN, MAY REPEAT EVERY FIVE MINUTES FOR A TOTAL OF 3 DOSES OR CALL 911 IF NO RELIEF K-Tab (Potassium Chloride) 20 Meq Tab 20 Meq PO TID Isosorbide Mononitrate ER (Isosorbide Mononitrate) 30 Mg Adolph 30 Mg PO DAILY Metoprolol Tartrate 25 Mg Tab 25 Mg PO BID Lyrica (Pregabalin) 50 Mg Cap 50 Mg PO TID Ranitidine (Ranitidine HCl) 300 Mg Tab 300 Mg PO DAILY Tamsulosin (Tamsulosin HCl) 0.4 Mg Cap 0.4 Mg PO DAILY Tramadol (Tramadol HCl) 50 Mg Tab 50 Mg PO QID PRN Ipratropium Neb (Ipratropium Thomson) 0.5 Mg/2.5 Ml Amp 0.5 Mg NEB TID NEB PRN Proair Respiclick Inh (Albuterol Sulfate) 90 Mcg/Act Aerp 2 Puff INH Q6H PRN Active Ordered Medications Current Medications Medications (Trade) Dose Ordered Sig/Luis Route Start Time Stop Time Status Last Admin (Zyloprim) 300 mg DAILY PO 09/11/17 09:00 09/15/17 08:54 (Cordarone) 200 mg BID PO 09/10/17 22:00 09/15/17 08:55 (Ecotrin Ec) 81 mg DAILY PO 09/11/17 09:00 09/15/17 08:54 (Plavix) 75 mg DAILY PO 09/11/17 09:00 09/15/17 08:55 (Atrovent Neb) 0.5 mg TID NEB PRN NEB 09/10/17 21:30 (Imdur) 30 mg DAILY PO 09/11/17 09:00 09/15/17 08:55 (Lopressor) 25 mg BID PO 09/10/17 22:00 Future hold 09/15/17 08:55 (Nitrostat Sl) 0.4 mg UNSCH PRN SL 09/10/17 21:30 09/14/17 20:16 (KCl) 20 meq TID PO 09/11/17 09:00 09/15/17 12:25 (Lyrica) 50 mg TID PO 09/11/17 09:00 09/15/17 12:26 (Flomax) 0.4 mg DAILY PO 09/11/17 09:00 09/15/17 08:53 (Ultram) 50 mg QID PRN PO 09/10/17 21:30 09/15/17 12:26 (Proair Hfa Inh) 2 puff Q6H PRN INH 09/10/17 22:45 (Pepcid) 10 mg Q12HR PO 09/11/17 09:00 09/15/17 08:55 (NS Flush) 2 ml UNSCH PRN IV FLUSH 09/10/17 22:45 (NS Flush) 2 ml BID IV FLUSH 09/11/17 09:00 09/15/17 08:55 (Zofran Inj) 4 mg Q6H PRN IVP 09/10/17 22:45 09/13/17 01:42 (Tylenol) 650 mg Q6H PRN PO 09/10/17 22:45 09/12/17 13:33 (Narcan Inj) 0.4 mg UNSCH PRN IV PUSH 09/10/17 22:45 (Madelaine-Colace) 1 tab BID PO 09/11/17 09:00 09/15/17 08:55 (Milk Of Magnesia Liq) 30 ml Q12H PRN PO 09/10/17 22:45 (Senokot) 17.2 mg Q12H PRN PO 09/10/17 22:45 (Dulcolax Supp) 10 mg DAILY PRN RECTAL 09/10/17 22:45 (Lactulose Liq) 30 ml DAILY PRN PO 09/10/17 22:45 (Xanax) 0.125 mg TID PRN PO 09/14/17 12:30 (Antivert) 25 mg Q8H PRN PO 09/14/17 12:30 (Pill Splitter) 1 ea UNSCH PRN OTHER 09/14/17 12:45 (Deltasone) 20 mg DAILY PO 09/15/17 09:30 09/17/17 09:01 09/15/17 10:28 Family History Noncontributory Social History He used to smoke and stopped smoking Physical Exam Vital Signs Vital Signs Date Time Temp Pulse Resp B/P (MAP) Pulse Ox O2 Delivery O2 Flow Rate FiO2 09/15/17 09:55 94 Nasal Cannula 2.00 09/15/17 08:07 97.7 69 18 103/67 (79) 94 09/15/17 08:00 59 09/15/17 07:00 94 Nasal Cannula 2.00 09/15/17 04:00 97.6 67 21 99/58 (72) 96 09/15/17 04:00 66 09/15/17 00:00 98.1 68 20 105/59 (74) 94 09/15/17 00:00 61 09/14/17 23:30 93 Nasal Cannula 3.00 09/14/17 21:00 Nasal Cannula 2.00 09/14/17 20:00 59 09/14/17 20:00 98.0 68 22 102/50 (67) 94 09/14/17 18:00 Nasal Cannula 2.00 09/14/17 17:01 59 09/14/17 16:35 97.9 65 18 117/68 (84) 94 Physical Exam GENERAL: Well-nourished, well-developed patient. SKIN: Warm and dry. HEAD: Normocephalic. EYES: No scleral icterus. No injection or drainage. NECK: Supple, trachea midline. No JVD or lymphadenopathy. CARDIOVASCULAR: Regular rate and rhythm without murmurs, gallops, or rubs. RESPIRATORY: Breath sounds equal bilaterally. No accessory muscle use. GASTROINTESTINAL: Abdomen soft, non-tender, nondistended. EXTREMITIES: No cyanosis, or edema. NEUROLOGICAL: Awake, alert, and oriented x 3. Non-focal. Laboratory Laboratory Tests Test 09/15/17 13:00 Blood Urea Nitrogen 42 Creatinine 2.05 Random Glucose 107 Calcium Level 9.2 Sodium Level 140 Potassium Level 4.3 Chloride Level 97 Carbon Dioxide Level 40.4 Anion Gap 3 Estimat Glomerular Filtration Rate 34 Result Diagram: 09/11/17 0646 09/15/17 1300 Imaging Last Impressions Myocardial Perfusion Scan Nuc Med 09/12/17 0000 Signed Impressions: Service Date/Time: September 10:07 - CONCLUSION: 1. Small focal area of moderate reversibility in the anterior wall of the mid left ventricle. 2. Large fixed decreased perfusion defect involving the inferior half of the left ventricle, characteristic of old infarct and scar. 3. Global hypokinesia with significantly reduced left ventricular ejection fraction calculated at 28%%. This represents a decrease from the prior study when it was calculated at 48%%.. RISK CATEGORY: High (>3%% Annual Mortality Rate) Pj Arellano MD Chest CT 09/11/17 0600 Signed Impressions: Service Date/Time: Monday, September 11, 2017 03:29 - CONCLUSION: 1. Stable moderate elevation of the right hemidiaphragm with apparent scarring and stable pleural thickening. 2. Calcified pleural plaques are again noted. 3. Status post median sternotomy for bypass grafting with postsurgical change. Patrice Hendricks MD Chest X-Ray 09/10/17 1112 Signed Impressions: Service Date/Time: Sunday, September 10, 2017 11:25 - CONCLUSION: Compensated cardiomegaly otherwise negative aerated. Pacer, previous bypass. Anil Ruvalcaba MD FACR Head CT 09/10/17 0000 Signed Impressions: Service Date/Time: Sunday, September 10, 2017 12:15 - CONCLUSION: 1. No acute findings in the brain. Rod Montes MD Assessment and Plan Problem List: (1) Acute kidney injury superimposed on chronic kidney disease ICD Codes: N17.9 - Acute kidney failure, unspecified; N18.9 - Chronic kidney disease, unspecified Plan: Patient has a EF of 50% he was on diuretic however this was stopped due to elevation in creatinine and contracture alkalosis He can drink more fluid today Follow BMP Dr. Shrestha has seen him in the past. I will sign out to him (2) History of CHF (congestive heart failure) ICD Codes: Z86.79 - Personal history of congestive heart failure Status: Acute Plan: Continue to monitor (3) COPD exacerbation ICD Codes: J44.1 - Obstructive chronic bronchitis with exacerbation Status: Chronic Plan: Raya Wilkins MD Sep 15, 2017 14:17
[2017-09-15] MEDS: NITROGLYCERIN 0.4 MG SL 25 TABS/BTL SL PRN (14:30)
[2017-09-15] MEDS: ALPRAZolam 0.25 MG TAB PO PRN (20:14)
[2017-09-16] VITALS (7 sets, daily range): BP systolic 101–140; BP diastolic 55–98; PULSE 59–80; RESP 17–21; TEMP 97.2–98.2; O2SAT 95–98
[2017-09-16] MEDS: NITROGLYCERIN 0.4 MG SL 25 TABS/BTL SL PRN ×3 (00:07→18:02)
--- NOTE | 2017-09-16 08:01 | PD.CARD.PN ---
Subjective Subjective Remarks Brief episodes of chest pain and dyspnea. Creatinine steadily worsening. Objective Medications Current Medications Medications (Trade) Dose Ordered Sig/Luis Route Start Time Stop Time Status Last Admin (Zyloprim) 300 mg DAILY PO 09/11/17 09:00 09/15/17 08:54 (Cordarone) 200 mg BID PO 09/10/17 22:00 09/15/17 20:10 (Ecotrin Ec) 81 mg DAILY PO 09/11/17 09:00 09/15/17 08:54 (Plavix) 75 mg DAILY PO 09/11/17 09:00 09/15/17 08:55 (Atrovent Neb) 0.5 mg TID NEB PRN NEB 09/10/17 21:30 (Imdur) 30 mg DAILY PO 09/11/17 09:00 09/15/17 08:55 (Lopressor) 25 mg BID PO 09/10/17 22:00 Future hold 09/15/17 08:55 (Nitrostat Sl) 0.4 mg UNSCH PRN SL 09/10/17 21:30 09/16/17 00:23 (KCl) 20 meq TID PO 09/11/17 09:00 09/15/17 18:37 (Lyrica) 50 mg TID PO 09/11/17 09:00 09/15/17 18:38 (Flomax) 0.4 mg DAILY PO 09/11/17 09:00 09/15/17 08:53 (Ultram) 50 mg QID PRN PO 09/10/17 21:30 09/15/17 20:15 (Proair Hfa Inh) 2 puff Q6H PRN INH 09/10/17 22:45 (Pepcid) 10 mg Q12HR PO 09/11/17 09:00 09/15/17 20:11 (NS Flush) 2 ml UNSCH PRN IV FLUSH 09/10/17 22:45 (NS Flush) 2 ml BID IV FLUSH 09/11/17 09:00 09/15/17 20:11 (Zofran Inj) 4 mg Q6H PRN IVP 09/10/17 22:45 09/13/17 01:42 (Tylenol) 650 mg Q6H PRN PO 09/10/17 22:45 09/12/17 13:33 (Narcan Inj) 0.4 mg UNSCH PRN IV PUSH 09/10/17 22:45 (Madelaine-Colace) 1 tab BID PO 09/11/17 09:00 09/15/17 20:11 (Milk Of Magnesia Liq) 30 ml Q12H PRN PO 09/10/17 22:45 (Senokot) 17.2 mg Q12H PRN PO 09/10/17 22:45 (Dulcolax Supp) 10 mg DAILY PRN RECTAL 09/10/17 22:45 (Lactulose Liq) 30 ml DAILY PRN PO 09/10/17 22:45 (Xanax) 0.125 mg TID PRN PO 09/14/17 12:30 09/15/17 20:14 (Antivert) 25 mg Q8H PRN PO 09/14/17 12:30 (Pill Splitter) 1 ea UNSCH PRN OTHER 09/14/17 12:45 (Deltasone) 20 mg DAILY PO 09/15/17 09:30 09/17/17 09:01 09/15/17 10:28 Vital Signs / I&O Vital Signs Date Time Temp Pulse Resp B/P (MAP) Pulse Ox O2 Delivery O2 Flow Rate FiO2 09/16/17 04:00 97.5 62 21 140/70 (93) 96 09/16/17 04:00 62 09/16/17 00:00 97.4 78 21 101/55 (70) 95 09/16/17 00:00 61 09/15/17 21:30 Nasal Cannula 2.00 09/15/17 20:00 98.5 65 19 98/55 (69) 94 09/15/17 20:00 59 09/15/17 17:37 95 Nasal Cannula 2.00 09/15/17 16:07 99.0 64 18 115/69 (84) 95 09/15/17 16:00 60 09/15/17 12:07 97.8 70 18 144/96 (112) 97 09/15/17 12:00 68 09/15/17 09:55 94 Nasal Cannula 2.00 09/15/17 08:07 97.7 69 18 103/67 (79) 94 09/15/17 08:00 59 I/O 09/15/17 09/15/17 09/15/17 09/16/17 12/11/17 12/11/17 07:00 15:00 23:00 07:00 15:00 23:00 Intake Total 540 ml 480 ml 0 ml Output Total 1700 ml 1800 ml 1800 ml Balance -1160 ml -1320 ml -1800 ml Intake Oral 540 ml 480 ml 0 ml Output Urine Total 1700 ml 1800 ml 1800 ml # Bowel Movements 0 1 1 Physical Exam Lungs clear RRR Laboratory Laboratory Tests Test 09/15/17 13:00 Blood Urea Nitrogen 42 MG/DL Creatinine 2.05 MG/DL Random Glucose 107 MG/DL Calcium Level 9.2 MG/DL Sodium Level 140 MEQ/L Potassium Level 4.3 MEQ/L Chloride Level 97 MEQ/L Carbon Dioxide Level 40.4 MEQ/L Anion Gap 3 MEQ/L Estimat Glomerular Filtration Rate 34 ML/MIN Assessment and Plan Assessment and Plan Will check V/Q. Defer cath in light of worsening renal function. Will increase isosorbide to 60 mg daily Hernan Brice MD Sep 16, 2017 08:01
--- NOTE | 2017-09-16 08:46 | HHI.PR ---
Subjective Remarks Follow-up chest pain, foot pain. Patient states that his feet felt much better after receiving prednisone yesterday, but are starting to hurt again this morning. He did have an episode of chest pain that lasted about 10 minutes last night. It was in the left side of his chest and radiated to his neck. 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 No chest pain at this time. Objective Vitals Vital Signs Date Time Temp Pulse Resp B/P (MAP) Pulse Ox O2 Delivery O2 Flow Rate FiO2 09/16/17 04:00 97.5 62 21 140/70 (93) 96 09/16/17 04:00 62 09/16/17 00:00 97.4 78 21 101/55 (70) 95 09/16/17 00:00 61 09/15/17 21:30 Nasal Cannula 2.00 09/15/17 20:00 98.5 65 19 98/55 (69) 94 09/15/17 20:00 59 09/15/17 17:37 95 Nasal Cannula 2.00 09/15/17 16:07 99.0 64 18 115/69 (84) 95 09/15/17 16:00 60 09/15/17 12:07 97.8 70 18 144/96 (112) 97 09/15/17 12:00 68 09/15/17 09:55 94 Nasal Cannula 2.00 I/O 09/15/17 09/15/17 09/15/17 09/16/17 09/16/17 09/16/17 07:00 15:00 23:00 07:00 15:00 23:00 Intake Total 540 ml 480 ml 0 ml Output Total 1700 ml 1800 ml 1800 ml Balance -1160 ml -1320 ml -1800 ml Intake Oral 540 ml 480 ml 0 ml Output Urine Total 1700 ml 1800 ml 1800 ml # Bowel Movements 0 1 1 Result Diagram: 09/15/17 1300 Imaging Last Impressions Myocardial Perfusion Scan Nuc Med 09/12/17 0000 Signed Impressions: Service Date/Time: September 10:07 - CONCLUSION: 1. Small focal area of moderate reversibility in the anterior wall of the mid left ventricle. 2. Large fixed decreased perfusion defect involving the inferior half of the left ventricle, characteristic of old infarct and scar. 3. Global hypokinesia with significantly reduced left ventricular ejection fraction calculated at 28%%. This represents a decrease from the prior study when it was calculated at 48%%.. RISK CATEGORY: High (>3%% Annual Mortality Rate) Pj Arellano MD Chest CT 09/11/17 0600 Signed Impressions: Service Date/Time: Monday, September 11, 2017 03:29 - CONCLUSION: 1. Stable moderate elevation of the right hemidiaphragm with apparent scarring and stable pleural thickening. 2. Calcified pleural plaques are again noted. 3. Status post median sternotomy for bypass grafting with postsurgical change. Patrice Hendricks MD Chest X-Ray 09/10/17 1112 Signed Impressions: Service Date/Time: Sunday, September 10, 2017 11:25 - CONCLUSION: Compensated cardiomegaly otherwise negative aerated. Pacer, previous bypass. Anil Ruvalcaba MD FACR Head CT 09/10/17 0000 Signed Impressions: Service Date/Time: Sunday, September 10, 2017 12:15 - CONCLUSION: 1. No acute findings in the brain. Rod Montes MD Objective Remarks General: No acute distress. Heart: Regular rate and rhythm. No murmur. Lungs: Mild bibasilar crackles. Breathing is nonlabored. Abdomen: Soft, nontender, nondistended. Extremities: No lower extremity edema. Both feet are mildly tender on the plantar surface medially. Psych: Alert and oriented. Procedures None Urinary Catheter: No Vascular Central Line Catheter: No A/P Problem List: (1) Syncope ICD Code: R55 - Syncope and collapse Status: Acute (2) SOB (shortness of breath) ICD Code: R06.02 - Shortness of breath Status: Chronic (3) Chest pain ICD Code: R07.9 - Chest pain Status: Acute (4) Acute kidney injury superimposed on chronic kidney disease ICD Code: N17.9 - Acute kidney failure, unspecified; N18.9 - Chronic kidney disease, unspecified Assessment and Plan 1. Syncope/weakness/dizziness: Symptoms improved. Continue Antivert. PT/OT. 2. Chest pain: Patient has significant history of coronary artery disease including prior CABG. Lexiscan abnormal. Cardiac catheterization on hold secondary to renal function. Still having intermittent episodes of chest pain. Continue medical management at this time. V/Q scan ordered by cardiology. 3. History of CHF: Dyspnea is improved. EF 55% on echocardiogram, 28% on Lexiscan. Appreciate cardiology recommendations. Continue Bumex. Oxygen as needed. 4. Acute kidney injury superimposed on chronic kidney disease: Patient's baseline creatinine is 1.6-1.8. Continue Bumex for fluid overload. Appreciate nephrology recommendations. Avoid nephrotoxic agents. Labs are pending today. 5. Bilateral foot pain, history of gout: Continue allopurinol, Lyrica. Continue 3 day course of prednisone. Pain is improving. 6. DVT prophylaxis: Heparin. Discussed with Dr. Brice. Problem Qualifiers (1) Chest pain: Qualified Codes: R07.9 - Chest pain, unspecified Octavio Pace MD Sep 16, 2017 08:46
[2017-09-16 09:36] LABS: BICARBONATE 36.2 MEQ/L (21.0-32.0); POTASSIUM 4.1 MEQ/L (3.5-5.1)
[2017-09-16] MEDS: HEPARIN SODIUM - SQ 10,000 UNITS/ML VIAL SQ SCH ×2 (11:10→20:59)
[2017-09-16] MEDS: TAMSULOSIN HCL 0.4 MG CAP PO SCH (11:10)
[2017-09-16] MEDS: POTASSIUM CHLORIDE 20 MEQ CONTROLLED RELEASE TAB PO SCH ×3 (11:11→17:56)
[2017-09-16] MEDS: DOCUSATE SODIUM 50 MG/SENNA 8.6 MG TAB PO SCH ×2 (11:11→20:59)
[2017-09-16] MEDS: CLOPIDOGREL 75 MG TAB PO SCH (11:11)
[2017-09-16] MEDS: PREGABALIN 25 MG CAP PO SCH ×3 (11:11→17:56)
[2017-09-16] MEDS: ALLOPURINOL 300 MG TAB PO SCH (11:11)
[2017-09-16] MEDS: METOPROLOL TARTRATE 25 MG TAB PO SCH ×2 (11:11→20:58)
[2017-09-16] MEDS: FAMOTIDINE 20 MG TAB PO SCH ×2 (11:12→20:58)
[2017-09-16] MEDS: ASPIRIN EC 81 MG TABEC PO SCH (11:12)
[2017-09-16] MEDS: AMIODARONE 200 MG TAB PO SCH ×2 (11:12→20:58)
[2017-09-16] MEDS: predniSONE 20 MG TAB PO SCH (11:12)
[2017-09-16] MEDS: SODIUM CHLORIDE 0.9% FLUSH 10 ML FLUSH IV FLUSH SCH ×2 (11:13→20:59)
--- NOTE | 2017-09-16 11:17 | RADRPT ---
EXAM DATE/TIME: 09/16/2017 10:05 [facility] COMPARISON: CHEST SINGLE AP, September 16, 2017, 10:44. LUNG VENTILATION & PERFUSION SCAN, February 24, 2016, 22:55. INDICATIONS : Short of breath for two days. DOSE: 8.7 mCi Tc99m MAA IV 0.95 mCi Tc99m DTPA aerosol MEDICAL HISTORY : Chronic obstructive pulmonary disease. SURGICAL HISTORY : Inguinal hernia repair. Pacemaker. CABG ENCOUNTER: Initial ACUITY: 2 days PAIN SCALE: 1/10 LOCATION: Bilateral chest TECHNIQUE: Following five minutes of tidal breathing of DTPA aerosol, planar images of the lungs were performed in eight projections. The patient was then injected with MAA, and eight-view perfusion scan was perf ormed. FINDINGS: Right shay-diaphragm is elevated resulting in diminished ventilation and perfusion within the right b ase. There is otherwise a homogeneous pattern of aerosol delivery to the periphery of both lungs. No foca l ventilatory defects are seen. The perfusion lung scan demonstrates a homogenous pattern of uptake in both lungs. No segmental or s ubsegmental defects are seen. CONCLUSION: Low probability of pulmonary embolism. Cornel Gimenez MD on September 16, 2017 at 11:14 Board Certified Radiologist. This report was verified electronically.
[2017-09-16] MEDS: ISOSORBIDE MONONITRATE 60 MG TAB PO SCH (11:18)
--- NOTE | 2017-09-16 11:19 | RADRPT ---
EXAM DATE/TIME: 09/16/2017 10:44 [facility] COMPARISON: CHEST SINGLE AP, September 10, 2017, 11:25. INDICATIONS : VQ scan. MEDICAL HISTORY : Cardiovascular disease. Myocardial infarction. SURGICAL HISTORY : CABG. Pacemaker. Stents. ENCOUNTER: Initial ACUITY: 1 day PAIN SCORE: 0/10 LOCATION: Bilateral chest FINDINGS: Interstitial vascular prominence has developed compared to the prior study. Right hemidiaphragm is elevated. Heart and mediastinal structures are stable. Postsurgical changes from prior CABG and pacemaker are n oted in place. CONCLUSION: 1. Mild pulmonary congestion 2. Otherwise stable chest Cornel Gimenez MD on September 16, 2017 at 11:16 Board Certified Radiologist. This report was verified electronically.
[2017-09-16] MEDS: traMADol HCL 50 MG TAB PO PRN ×2 (15:47→21:53)
--- NOTE | 2017-09-16 17:05 | HHI.NPPN ---
Subjective History of Present Illness 56-year-old white male with history of atherosclerotic heart disease, previous [place], coronary artery bypass graft, Chronic kidney disease and recurrent TWIN, post AICD who has been admitted with lightheadedness and chest pain with shortness of breath. Additional Remarks Patient is alert, feeling better, breathing is improving and pain in feet and ankle improving. Review of Systems General Constitutional: Fatigue Respiratory Lungs: SOB Cardiovascular Cardiac: Edema, RIVERA Objective Data Data 09/16/17 09/17/17 19:00 07:00 Output Total 300 ml Balance -300 ml Output Urine Total 300 ml # Bowel Movements 0 Vital Signs Date Time Temp Pulse Resp B/P (MAP) Pulse Ox O2 Delivery O2 Flow Rate FiO2 09/16/17 16:00 59 09/16/17 14:22 Nasal Cannula 2.00 09/16/17 12:00 97.3 67 17 137/98 (111) 98 09/16/17 12:00 71 09/16/17 09:30 Nasal Cannula 3.00 09/16/17 08:00 80 09/16/17 08:00 97.4 60 17 114/71 (85) 96 09/16/17 04:00 97.5 62 21 140/70 (93) 96 09/16/17 04:00 62 09/16/17 00:00 97.4 78 21 101/55 (70) 95 09/16/17 00:00 61 09/15/17 21:30 Nasal Cannula 2.00 09/15/17 20:00 98.5 65 19 98/55 (69) 94 09/15/17 20:00 59 09/15/17 17:37 95 Nasal Cannula 2.00 -: 09/16/17 0800 Physical Exam General Appearance: No Acute Distress, Comfortable Eyes Eye Exam: Pupils Equal Throat Throat Exam: Oral Mucosa [place] & Moist Neck Neck Exam: Neck Supple Pulmonary Resp Exam: Breath Sounds Equal, No Distress, Rhonchi, Decreased Bases Cardiology CV Exam: Regular, Normal Sinus Rhythm Gastrointestinal/Abdomen GI Exam: Soft, Non-Tender, Bowel Sounds Present Extremeties Extremities Exam: Trace Edema Neurologic Neuro Exam: Alert, Awake, Oriented Psychiatric Psych Exam: Appropriate Responses Assessment/Plan Problem List: (1) Acute kidney injury superimposed on chronic kidney disease ICD Codes: N17.9 - Acute kidney failure, unspecified; N18.9 - Chronic kidney disease, unspecified Plan: (2) History of CHF (congestive heart failure) ICD Codes: Z86.79 - Personal history of congestive heart failure Status: Acute Plan: Continue to monitor (3) COPD exacerbation ICD Codes: J44.1 - Obstructive chronic bronchitis with exacerbation Status: Chronic Plan: Stable Plan Patient has chronic kidney disease, and recurrent TWIN. BP is stable, now off Bumex. He has CHF, and has recurrent TWIN. Need a balance between fluid intake and diuretics. Cardiology Following. Bumex is on hold. Creatinine is improving, now 1.9. His baseline Creatinine is close to 1.5-1.6. On Kcl and K is normal. Will need to start Bumex, lower dose , possibly in AM. Maxwell Shrestha MD Sep 16, 2017 17:05
[2017-09-16] MEDS: ACETAMINOPHEN 325 MG TAB PO PRN (18:02)
[2017-09-17] VITALS (8 sets, daily range): BP systolic 123–140; BP diastolic 69–84; PULSE 60–87; RESP 18–20; TEMP 97.3–98.2; O2SAT 94–96
[2017-09-17] MEDS: traMADol HCL 50 MG TAB PO PRN ×2 (04:09→20:36)
[2017-09-17 05:20] LABS: POTASSIUM 4.5 MEQ/L (3.5-5.1)
[2017-09-17] MEDS: ISOSORBIDE MONONITRATE 60 MG TAB PO SCH (06:00)
[2017-09-17] MEDS: DOCUSATE SODIUM 50 MG/SENNA 8.6 MG TAB PO SCH ×2 (09:13→20:36)
[2017-09-17] MEDS: FAMOTIDINE 20 MG TAB PO SCH ×2 (09:13→20:37)
[2017-09-17] MEDS: ASPIRIN EC 81 MG TABEC PO SCH (09:14)
[2017-09-17] MEDS: CLOPIDOGREL 75 MG TAB PO SCH (09:14)
[2017-09-17] MEDS: AMIODARONE 200 MG TAB PO SCH ×2 (09:14→20:37)
[2017-09-17] MEDS: TAMSULOSIN HCL 0.4 MG CAP PO SCH (09:14)
[2017-09-17] MEDS: METOPROLOL TARTRATE 25 MG TAB PO SCH ×2 (09:15→20:36)
[2017-09-17] MEDS: POTASSIUM CHLORIDE 20 MEQ CONTROLLED RELEASE TAB PO SCH ×3 (09:15→17:32)
[2017-09-17] MEDS: PREGABALIN 25 MG CAP PO SCH ×3 (09:15→17:33)
[2017-09-17] MEDS: ALLOPURINOL 300 MG TAB PO SCH (09:15)
[2017-09-17] MEDS: SODIUM CHLORIDE 0.9% FLUSH 10 ML FLUSH IV FLUSH SCH ×2 (09:16→20:37)
--- NOTE | 2017-09-17 09:16 | HHI.PR ---
Subjective Remarks Follow-up chest pain, foot pain. The patient states that he continues to have mild episodes of chest pain. These improved with nitroglycerin. No chest pain at this time. No dyspnea. States that his feet are becoming more swollen and therefore a little bit more painful. Objective Vitals Vital Signs Date Time Temp Pulse Resp B/P (MAP) Pulse Ox O2 Delivery O2 Flow Rate FiO2 09/17/17 04:07 63 09/17/17 04:00 97.5 60 18 134/84 (101) 96 09/17/17 00:07 60 09/17/17 00:00 97.3 61 18 123/82 (96) 95 09/16/17 20:15 Nasal Cannula 3.00 09/16/17 20:00 97.2 61 18 115/66 (82) 95 09/16/17 19:59 60 09/16/17 16:00 59 09/16/17 16:00 98.2 64 17 139/69 (92) 95 09/16/17 14:22 Nasal Cannula 2.00 09/16/17 12:00 97.3 67 17 137/98 (111) 98 09/16/17 12:00 71 09/16/17 09:30 Nasal Cannula 3.00 I/O 09/16/17 09/16/17 09/16/17 09/17/17 09/17/17 09/17/17 07:00 15:00 23:00 07:00 15:00 23:00 Intake Total 0 ml 480 ml 240 ml Output Total 1800 ml 500 ml 1350 ml Balance -1800 ml -20 ml -1110 ml Intake Oral 0 ml 480 ml 240 ml Output Urine Total 1800 ml 300 ml 1350 ml Stool Total 200 ml # Bowel Movements 1 0 Result Diagram: 09/17/17 0405 Imaging Last Impressions Chest X-Ray 09/16/17 1035 Signed Impressions: Service Date/Time: Saturday, September 16, 2017 10:44 - CONCLUSION: 1. Mild pulmonary congestion 2. Otherwise stable chest Cornel Gimenez MD Lung Scan-VQ Nuclear Medicine 09/16/17 0000 Signed Impressions: Service Date/Time: Saturday, September 16, 2017 10:05 - CONCLUSION: Low probability of pulmonary embolism. Cornel Gimenez MD Myocardial Perfusion Scan Nuc Med 09/12/17 0000 Signed Impressions: Service Date/Time: September 10:07 - CONCLUSION: 1. Small focal area of moderate reversibility in the anterior wall of the mid left ventricle. 2. Large fixed decreased perfusion defect involving the inferior half of the left ventricle, characteristic of old infarct and scar. 3. Global hypokinesia with significantly reduced left ventricular ejection fraction calculated at 28%%. This represents a decrease from the prior study when it was calculated at 48%%.. RISK CATEGORY: High (>3%% Annual Mortality Rate) Pj Arellano MD Chest CT 09/11/17 0600 Signed Impressions: Service Date/Time: Monday, September 11, 2017 03:29 - CONCLUSION: 1. Stable moderate elevation of the right hemidiaphragm with apparent scarring and stable pleural thickening. 2. Calcified pleural plaques are again noted. 3. Status post median sternotomy for bypass grafting with postsurgical change. Patrice Hendricks MD Head CT 09/10/17 0000 Signed Impressions: Service Date/Time: Sunday, September 10, 2017 12:15 - CONCLUSION: 1. No acute findings in the brain. Rod Montes MD Objective Remarks General: No acute distress. Heart: Regular rate and rhythm. No murmur. Lungs: Mild bibasilar crackles. Breathing is nonlabored. Abdomen: Soft, nontender, nondistended. Extremities: Trace bilateral lower extremity edema. Both feet are mildly tender on the plantar surface medially. Psych: Alert and oriented. Procedures None Urinary Catheter: No Vascular Central Line Catheter: No A/P Problem List: (1) Syncope ICD Code: R55 - Syncope and collapse Status: Acute (2) SOB (shortness of breath) ICD Code: R06.02 - Shortness of breath Status: Chronic (3) Chest pain ICD Code: R07.9 - Chest pain Status: Acute (4) Acute kidney injury superimposed on chronic kidney disease ICD Code: N17.9 - Acute kidney failure, unspecified; N18.9 - Chronic kidney disease, unspecified Assessment and Plan 1. Syncope/weakness/dizziness: Symptoms improved. Continue Antivert. PT/OT. 2. Chest pain: Patient has significant history of coronary artery disease including prior CABG. Lexiscan abnormal. Cardiac catheterization on hold secondary to renal function. Still having intermittent episodes of chest pain. Continue medical management at this time. V/Q scan is low probability for PE. 3. History of CHF: Dyspnea is improved. EF 55% on echocardiogram, 28% on Lexiscan. Appreciate cardiology recommendations. Will need to restart Bumex when okay with nephrology. Oxygen as needed. 4. Acute kidney injury superimposed on chronic kidney disease: Patient's baseline creatinine is 1.6-1.8. Bumex on hold. Appreciate nephrology recommendations. Avoid nephrotoxic agents. Labs are pending today. 5. Bilateral foot pain, history of gout: Continue allopurinol, Lyrica. Complete 3 day course of prednisone today. Slightly more pain in his feet today, likely secondary to swelling. 6. DVT prophylaxis: Heparin. Problem Qualifiers (1) Chest pain: Qualified Codes: R07.9 - Chest pain, unspecified Octavio Pace MD Sep 17, 2017 09:16
[2017-09-17] MEDS: HEPARIN SODIUM - SQ 10,000 UNITS/ML VIAL SQ SCH ×2 (09:18→20:36)
[2017-09-17] MEDS: predniSONE 20 MG TAB PO SCH (09:21)
--- NOTE | 2017-09-17 15:23 | HHI.NPPN ---
Subjective History of Present Illness 56-year-old white male with history of atherosclerotic heart disease, previous [place], coronary artery bypass graft, Chronic kidney disease and recurrent TWIN, post AICD who has been admitted with lightheadedness and chest pain with shortness of breath. Additional Remarks Patient is alert, feeling better, breathing is improving and pain in feet and ankle improving, occ. has chest pain off and on. Review of Systems General Constitutional: Fatigue Respiratory Lungs: SOB Cardiovascular Cardiac: Edema, RIVERA Objective Data Data Vital Signs Date Time Temp Pulse Resp B/P (MAP) Pulse Ox O2 Delivery O2 Flow Rate FiO2 09/17/17 12:00 97.4 76 20 126/69 (88) 94 09/17/17 09:00 Nasal Cannula 3.00 21 09/17/17 08:00 97.5 64 20 140/84 (102) 95 09/17/17 08:00 64 09/17/17 04:07 63 09/17/17 04:00 97.5 60 18 134/84 (101) 96 09/17/17 00:07 60 09/17/17 00:00 97.3 61 18 123/82 (96) 95 09/16/17 20:15 Nasal Cannula 3.00 09/16/17 20:00 97.2 61 18 115/66 (82) 95 09/16/17 19:59 60 09/16/17 16:00 59 09/16/17 16:00 98.2 64 17 139/69 (92) 95 -: 09/17/17 0405 Physical Exam General Appearance: No Acute Distress, Comfortable Eyes Eye Exam: Pupils Equal Throat Throat Exam: Oral Mucosa [place] & Moist Neck Neck Exam: Neck Supple Pulmonary Resp Exam: Breath Sounds Equal, No Distress, Rhonchi, Decreased Bases Cardiology CV Exam: Regular, Normal Sinus Rhythm Gastrointestinal/Abdomen GI Exam: Soft, Non-Tender, Bowel Sounds Present Extremeties Extremities Exam: Trace Edema Neurologic Neuro Exam: Alert, Awake, Oriented Psychiatric Psych Exam: Appropriate Responses Assessment/Plan Problem List: (1) Acute kidney injury superimposed on chronic kidney disease ICD Codes: N17.9 - Acute kidney failure, unspecified; N18.9 - Chronic kidney disease, unspecified Plan: (2) History of CHF (congestive heart failure) ICD Codes: Z86.79 - Personal history of congestive heart failure Status: Acute Plan: Continue to monitor (3) COPD exacerbation ICD Codes: J44.1 - Obstructive chronic bronchitis with exacerbation Status: Chronic Plan: Stable Plan Patient has chronic kidney disease, and recurrent TWIN. BP is stable, now off Bumex. He has CHF, and has recurrent TWIN. Need a balance between fluid intake and diuretics. Cardiology Following. Bumex is on hold. Creatinine is improving, now 1.8 now. His baseline Creatinine is close to 1.5-1.6. On Kcl and K is normal. Will need to start Bumex, lower dose. Will wait for cardiology to decide if need Cardiac Cath. Maxwell Shrestha MD Sep 17, 2017 15:23
[2017-09-18] VITALS (11 sets, daily range): BP systolic 111–139; BP diastolic 57–80; PULSE 60–77; RESP 16–18; TEMP 97.6–98.1; O2SAT 92–97
[2017-09-18] MEDS: traMADol HCL 50 MG TAB PO PRN ×2 (04:04→20:20)
[2017-09-18] MEDS: ISOSORBIDE MONONITRATE 60 MG TAB PO SCH (06:38)
--- NOTE | 2017-09-18 08:43 | PD.CARD.PN ---
Subjective Subjective Remarks Still feels episodes of intermittent episodes of chest pain, overall improved since admission. Intermittent episodes of shortness of breath, although he feels like this may be from his COPD. Objective Medications Current Medications Medications (Trade) Dose Ordered Sig/Luis Route Start Time Stop Time Status Last Admin (Zyloprim) 300 mg DAILY PO 09/11/17 09:00 09/17/17 09:15 (Cordarone) 200 mg BID PO 09/10/17 22:00 09/17/17 20:37 (Ecotrin Ec) 81 mg DAILY PO 09/11/17 09:00 09/17/17 09:14 (Plavix) 75 mg DAILY PO 09/11/17 09:00 09/17/17 09:14 (Atrovent Neb) 0.5 mg TID NEB PRN NEB 09/10/17 21:30 (Lopressor) 25 mg BID PO 09/10/17 22:00 Future hold 09/17/17 20:36 (Nitrostat Sl) 0.4 mg UNSCH PRN SL 09/10/17 21:30 09/16/17 18:02 (KCl) 20 meq TID PO 09/11/17 09:00 09/17/17 17:32 (Lyrica) 50 mg TID PO 09/11/17 09:00 09/17/17 17:33 (Flomax) 0.4 mg DAILY PO 09/11/17 09:00 09/17/17 09:14 (Ultram) 50 mg QID PRN PO 09/10/17 21:30 09/18/17 04:04 (Proair Hfa Inh) 2 puff Q6H PRN INH 09/10/17 22:45 (Pepcid) 10 mg Q12HR PO 09/11/17 09:00 09/17/17 20:37 (NS Flush) 2 ml UNSCH PRN IV FLUSH 09/10/17 22:45 (NS Flush) 2 ml BID IV FLUSH 09/11/17 09:00 09/17/17 20:37 (Zofran Inj) 4 mg Q6H PRN IVP 09/10/17 22:45 09/13/17 01:42 (Tylenol) 650 mg Q6H PRN PO 09/10/17 22:45 09/16/17 18:02 (Narcan Inj) 0.4 mg UNSCH PRN IV PUSH 09/10/17 22:45 (Madelaine-Colace) 1 tab BID PO 09/11/17 09:00 09/17/17 20:36 (Milk Of Magnesia Liq) 30 ml Q12H PRN PO 09/10/17 22:45 (Senokot) 17.2 mg Q12H PRN PO 09/10/17 22:45 (Dulcolax Supp) 10 mg DAILY PRN RECTAL 09/10/17 22:45 (Lactulose Liq) 30 ml DAILY PRN PO 09/10/17 22:45 (Xanax) 0.125 mg TID PRN PO 09/14/17 12:30 09/15/17 20:14 (Antivert) 25 mg Q8H PRN PO 09/14/17 12:30 (Pill Splitter) 1 ea UNSCH PRN OTHER 09/14/17 12:45 (Imdur) 60 mg DAILY@0700 PO 09/16/17 09:00 09/18/17 06:38 (Heparin Inj) 5,000 units Q12HR SQ 09/16/17 10:00 09/17/17 20:36 (Bumetanide) 1 mg DAILY PO 09/18/17 09:00 UNV Vital Signs / I&O Vital Signs Date Time Temp Pulse Resp B/P (MAP) Pulse Ox O2 Delivery O2 Flow Rate FiO2 09/18/17 07:57 Nasal Cannula 3.00 21 09/18/17 04:00 Nasal Cannula 3.00 09/18/17 03:57 60 09/18/17 01:07 97 Nasal Cannula 3.00 09/18/17 00:16 66 09/18/17 00:00 Nasal Cannula 3.00 09/18/17 00:00 97.7 68 16 112/67 (82) 95 09/17/17 20:00 98.2 61 18 133/80 (97) 96 09/17/17 20:00 Nasal Cannula 3.00 09/17/17 20:00 87 09/17/17 16:00 97.6 86 20 138/78 (98) 95 09/17/17 12:00 97.4 76 20 126/69 (88) 94 09/17/17 09:00 Nasal Cannula 3.00 21 I/O 09/17/17 09/17/17 09/17/17 09/18/17 09/18/17 09/18/17 07:00 15:00 23:00 07:00 15:00 23:00 Intake Total 240 ml Output Total 1350 ml Balance -1110 ml Intake Oral 240 ml Output Urine Total 1350 ml Physical Exam GENERAL: Well-developed well-nourished. In no acute distress. NECK: No carotid bruits. No JVD. CARDIOVASCULAR: Regular rate and rhythm. No murmur appreciated. RESPIRATORY: No accessory muscle use. Clear to auscultation. Breath sounds equal bilaterally. MUSCULOSKELETAL: No clubbing or cyanosis. No edema. NEUROLOGICAL: Awake and alert. Normal speech. Imaging Last Impressions Chest X-Ray 09/16/17 1035 Signed Impressions: Service Date/Time: Saturday, September 16, 2017 10:44 - CONCLUSION: 1. Mild pulmonary congestion 2. Otherwise stable chest Cornel Gimenez MD Lung Scan-V Nuclear Medicine 09/16/17 0000 Signed Impressions: Service Date/Time: Saturday, September 16, 2017 10:05 - CONCLUSION: Low probability of pulmonary embolism. Cornel Gimenez MD Myocardial Perfusion Scan Nuc Med 09/12/17 0000 Signed Impressions: Service Date/Time: September 10:07 - CONCLUSION: 1. Small focal area of moderate reversibility in the anterior wall of the mid left ventricle. 2. Large fixed decreased perfusion defect involving the inferior half of the left ventricle, characteristic of old infarct and scar. 3. Global hypokinesia with significantly reduced left ventricular ejection fraction calculated at 28%%. This represents a decrease from the prior study when it was calculated at 48%%.. RISK CATEGORY: High (>3%% Annual Mortality Rate) Pj Arellano MD Chest CT 09/11/17 0600 Signed Impressions: Service Date/Time: Monday, September 11, 2017 03:29 - CONCLUSION: 1. Stable moderate elevation of the right hemidiaphragm with apparent scarring and stable pleural thickening. 2. Calcified pleural plaques are again noted. 3. Status post median sternotomy for bypass grafting with postsurgical change. Patrice Hendricks MD Head CT 09/10/17 0000 Signed Impressions: Service Date/Time: Sunday, September 10, 2017 12:15 - CONCLUSION: 1. No acute findings in the brain. Rod Montes MD Assessment and Plan Assessment and Plan 56 y/o WM with significant cardiac history to include TX 9, CHF with EF 50% and grade 1 diastolic dysfunction on echo from 02/2016, CAD s/p CABG 6, AICD, hypertension, and COPD who presented for chest discomfort, shortness breath, lightheadedness. Atypical chest pain with extensive history of CAD: Troponins within normal limits. EKG with paced rhythm. Lexiscan showed a small focal area of moderate reversibility in the anterior wall of the mid left ventricle, large fixed defect involving the inferior half of the left ventricle. VQ with no PE. Continue Plavix, metoprolol, aspirin. Echocardiogram with normal systolic function, EF 50-55 %. Imdur increased. Consider LHC if renal function allows. TWIN on CKD: Creatinine slowly improving, caution with diuresis and normal EF. Shubham Chinchilla Sep 18, 2017 08:43
[2017-09-18] MEDS ORDERED: BUMETANIDE 1 MG TAB PO SCH (09:00)
--- NOTE | 2017-09-18 09:24 | HHI.PR ---
Subjective Remarks Follow-up chest pain, foot pain, chronic kidney disease. The patient had another episode of chest pain and shortness of breath last night. No symptoms currently. He has been ambulating without difficulty. Foot pain has improved. Objective Vitals Vital Signs Date Time Temp Pulse Resp B/P (MAP) Pulse Ox O2 Delivery O2 Flow Rate FiO2 09/18/17 08:07 97.6 74 18 132/80 (97) 96 09/18/17 07:57 Nasal Cannula 3.00 21 09/18/17 04:00 Nasal Cannula 3.00 09/18/17 03:57 60 09/18/17 01:07 97 Nasal Cannula 3.00 09/18/17 00:16 66 09/18/17 00:00 Nasal Cannula 3.00 09/18/17 00:00 97.7 68 16 112/67 (82) 95 09/17/17 20:00 98.2 61 18 133/80 (97) 96 09/17/17 20:00 Nasal Cannula 3.00 09/17/17 20:00 87 09/17/17 16:00 97.6 86 20 138/78 (98) 95 09/17/17 12:00 97.4 76 20 126/69 (88) 94 I/O 09/17/17 09/17/17 09/17/17 09/18/17 09/18/17 09/18/17 07:00 15:00 23:00 07:00 15:00 23:00 Intake Total 240 ml Output Total 1350 ml Balance -1110 ml Intake Oral 240 ml Output Urine Total 1350 ml Result Diagram: 09/17/17 0405 Imaging Last Impressions Chest X-Ray 09/16/17 1035 Signed Impressions: Service Date/Time: Saturday, September 16, 2017 10:44 - CONCLUSION: 1. Mild pulmonary congestion 2. Otherwise stable chest Cornel Gimenez MD Lung Scan-V Nuclear Medicine 09/16/17 0000 Signed Impressions: Service Date/Time: Saturday, September 16, 2017 10:05 - CONCLUSION: Low probability of pulmonary embolism. Cornel Gimenez MD Myocardial Perfusion Scan Nuc Med 09/12/17 0000 Signed Impressions: Service Date/Time: September 10:07 - CONCLUSION: 1. Small focal area of moderate reversibility in the anterior wall of the mid left ventricle. 2. Large fixed decreased perfusion defect involving the inferior half of the left ventricle, characteristic of old infarct and scar. 3. Global hypokinesia with significantly reduced left ventricular ejection fraction calculated at 28%%. This represents a decrease from the prior study when it was calculated at 48%%.. RISK CATEGORY: High (>3%% Annual Mortality Rate) Pj Arellano MD Chest CT 09/11/17 0600 Signed Impressions: Service Date/Time: Monday, September 11, 2017 03:29 - CONCLUSION: 1. Stable moderate elevation of the right hemidiaphragm with apparent scarring and stable pleural thickening. 2. Calcified pleural plaques are again noted. 3. Status post median sternotomy for bypass grafting with postsurgical change. Patrice Hendricks MD Head CT 09/10/17 0000 Signed Impressions: Service Date/Time: Sunday, September 10, 2017 12:15 - CONCLUSION: 1. No acute findings in the brain. Rod Montes MD Objective Remarks General: No acute distress. Heart: Regular rate and rhythm. No murmur. Lungs: Clear to auscultation bilaterally. Breathing is nonlabored. Abdomen: Soft, nontender, nondistended. Extremities: Trace bilateral lower extremity edema. Psych: Alert and oriented. Procedures None Urinary Catheter: No Vascular Central Line Catheter: No A/P Problem List: (1) Syncope ICD Code: R55 - Syncope and collapse Status: Acute (2) SOB (shortness of breath) ICD Code: R06.02 - Shortness of breath Status: Chronic (3) Chest pain ICD Code: R07.9 - Chest pain Status: Acute (4) Acute kidney injury superimposed on chronic kidney disease ICD Code: N17.9 - Acute kidney failure, unspecified; N18.9 - Chronic kidney disease, unspecified Assessment and Plan 1. Syncope/weakness/dizziness: Symptoms improved. Continue Antivert. PT/OT. 2. Chest pain: Patient has significant history of coronary artery disease including prior CABG. Lexiscan abnormal. Still having intermittent episodes of chest pain. Continue medical management at this time. V/Q scan is low probability for PE. Per cardiology, plan for cardiac catheterization tomorrow if renal function allows. 3. History of CHF: Dyspnea is improved. EF 55% on echocardiogram, 28% on Lexiscan. Appreciate cardiology recommendations. Will need to restart Bumex when okay with nephrology. Oxygen as needed. 4. Acute kidney injury superimposed on chronic kidney disease: Creatinine has been trending down. Patient's baseline creatinine is 1.6-1.8. Bumex on hold. Appreciate nephrology recommendations. Avoid nephrotoxic agents. Labs are pending today. 5. Bilateral foot pain, history of gout: Continue allopurinol, Lyrica. Completed 3 day course of prednisone. Pain has improved. 6. DVT prophylaxis: Heparin. Problem Qualifiers (1) Chest pain: Qualified Codes: R07.9 - Chest pain, unspecified Octavio Pace MD Sep 18, 2017 09:24
[2017-09-18 09:39] LABS: BASOPHIL # 0.1 TH/MM3 (0-0.2); EOSINOPHIL # 0.1 TH/MM3 (0-0.4); HEMO FLAGS DIFF FINAL; LYMPH % 14.4 % (9.0-44.0); MEAN CELL VOLUME 86.3 FL (80.0-100.0); MEAN CORPUSCULAR HGB CONC 32.4 % (32.0-36.0); MONO % 10.8 % (0.0-8.0); NEUT % 72.8 % (16.0-70.0); PLATELET COUNT 176 TH/MM3 (150-450); RED BLOOD COUNT 4.52 MIL/MM3 (4.50-5.90); RED CELL DISTRIBUTION WIDTH 15.7 % (11.6-17.2); WHITE BLOOD COUNT 6.9 TH/MM3 (4.0-11.0)
[2017-09-18 10:07] LABS: BICARBONATE 35.2 MEQ/L (21.0-32.0); POTASSIUM 4.7 MEQ/L (3.5-5.1)
--- NOTE | 2017-09-18 10:29 | HHI.NPPN ---
Subjective History of Present Illness 56-year-old white male with history of atherosclerotic heart disease, previous [place], coronary artery bypass graft, Chronic kidney disease and recurrent TWIN, post AICD who has been admitted with lightheadedness and chest pain with shortness of breath. Additional Remarks Patient is alert, feeling better, breathing is improving and pain in feet and ankle improving, occ. has chest pain off and on. Review of Systems General Constitutional: Fatigue Respiratory Lungs: SOB Cardiovascular Cardiac: Edema, RIVERA Objective Data Data Vital Signs Date Time Temp Pulse Resp B/P (MAP) Pulse Ox O2 Delivery O2 Flow Rate FiO2 09/18/17 08:07 97.6 74 18 132/80 (97) 96 09/18/17 07:57 Nasal Cannula 3.00 21 09/18/17 04:00 Nasal Cannula 3.00 09/18/17 03:57 60 09/18/17 01:07 97 Nasal Cannula 3.00 09/18/17 00:16 66 09/18/17 00:00 Nasal Cannula 3.00 09/18/17 00:00 97.7 68 16 112/67 (82) 95 09/17/17 20:00 98.2 61 18 133/80 (97) 96 09/17/17 20:00 Nasal Cannula 3.00 09/17/17 20:00 87 09/17/17 16:00 97.6 86 20 138/78 (98) 95 09/17/17 12:00 97.4 76 20 126/69 (88) 94 -: 09/18/17 0839 09/18/17 0839 Physical Exam General Appearance: No Acute Distress, Comfortable Eyes Eye Exam: Pupils Equal Throat Throat Exam: Oral Mucosa [place] & Moist Neck Neck Exam: Neck Supple Pulmonary Resp Exam: Breath Sounds Equal, No Distress, Rhonchi, Decreased Bases Cardiology CV Exam: Regular, Normal Sinus Rhythm Gastrointestinal/Abdomen GI Exam: Soft, Non-Tender, Bowel Sounds Present Extremeties Extremities Exam: Trace Edema Neurologic Neuro Exam: Alert, Awake, Oriented Psychiatric Psych Exam: Appropriate Responses Assessment/Plan Problem List: (1) Acute kidney injury superimposed on chronic kidney disease ICD Codes: N17.9 - Acute kidney failure, unspecified; N18.9 - Chronic kidney disease, unspecified Plan: (2) History of CHF (congestive heart failure) ICD Codes: Z86.79 - Personal history of congestive heart failure Status: Acute Plan: Continue to monitor (3) COPD exacerbation ICD Codes: J44.1 - Obstructive chronic bronchitis with exacerbation Status: Chronic Plan: Stable Plan Patient has chronic kidney disease, and recurrent TWIN. BP is stable, now off Bumex. He has CHF, and has recurrent TWIN. Need a balance between fluid intake and diuretics. Cardiology Following. Bumex is on hold. Creatinine is improving, now 1.8 now. His baseline Creatinine is close to 1.5-1.6. On Kcl and K is normal. Will need to start Bumex, lower dose. Will wait for cardiology to decide if need Cardiac Cath. Maxwell Shrestha MD Sep 18, 2017 10:29
[2017-09-18] MEDS: POTASSIUM CHLORIDE 20 MEQ CONTROLLED RELEASE TAB PO SCH ×3 (11:47→18:00)
[2017-09-18] MEDS: METOPROLOL TARTRATE 25 MG TAB PO SCH ×2 (11:47→20:20)
[2017-09-18] MEDS: CLOPIDOGREL 75 MG TAB PO SCH (11:47)
[2017-09-18] MEDS: AMIODARONE 200 MG TAB PO SCH ×2 (11:47→20:20)
[2017-09-18] MEDS: ASPIRIN EC 81 MG TABEC PO SCH (11:48)
[2017-09-18] MEDS: HEPARIN SODIUM - SQ 10,000 UNITS/ML VIAL SQ SCH ×2 (11:48→20:21)
[2017-09-18] MEDS: PREGABALIN 25 MG CAP PO SCH ×3 (11:48→18:00)
[2017-09-18] MEDS: FAMOTIDINE 20 MG TAB PO SCH ×2 (11:48→20:20)
[2017-09-18] MEDS: SODIUM CHLORIDE 0.9% FLUSH 10 ML FLUSH IV FLUSH SCH ×2 (11:49→20:21)
[2017-09-18] MEDS: TAMSULOSIN HCL 0.4 MG CAP PO SCH (11:54)
[2017-09-18] MEDS: ALLOPURINOL 300 MG TAB PO SCH (11:54)
[2017-09-18] MEDS: DOCUSATE SODIUM 50 MG/SENNA 8.6 MG TAB PO SCH ×2 (11:55→20:20)
[2017-09-19] VITALS (10 sets, daily range): BP systolic 102–116; BP diastolic 63–75; PULSE 58–67; RESP 18–20; TEMP 97.3–97.7; O2SAT 94–98
[2017-09-19] MEDS: ISOSORBIDE MONONITRATE 60 MG TAB PO SCH (05:42)
[2017-09-19 07:17] LABS: POTASSIUM 4.8 MEQ/L (3.5-5.1)
--- NOTE | 2017-09-19 07:25 | PD.CARD.PN ---
Subjective Subjective Remarks No chest pain or dyspnea. Renal function stabilized Objective Medications Current Medications Medications (Trade) Dose Ordered Sig/Luis Route Start Time Stop Time Status Last Admin (Zyloprim) 300 mg DAILY PO 09/11/17 09:00 09/18/17 11:54 (Cordarone) 200 mg BID PO 09/10/17 22:00 09/18/17 20:20 (Ecotrin Ec) 81 mg DAILY PO 09/11/17 09:00 09/18/17 11:48 (Plavix) 75 mg DAILY PO 09/11/17 09:00 09/18/17 11:47 (Atrovent Neb) 0.5 mg TID NEB PRN NEB 09/10/17 21:30 (Lopressor) 25 mg BID PO 09/10/17 22:00 Future hold 09/18/17 20:20 (Nitrostat Sl) 0.4 mg UNSCH PRN SL 09/10/17 21:30 09/16/17 18:02 (KCl) 20 meq TID PO 09/11/17 09:00 09/18/17 18:00 (Lyrica) 50 mg TID PO 09/11/17 09:00 09/18/17 18:00 (Flomax) 0.4 mg DAILY PO 09/11/17 09:00 09/18/17 11:54 (Ultram) 50 mg QID PRN PO 09/10/17 21:30 09/18/17 20:20 (Proair Hfa Inh) 2 puff Q6H PRN INH 09/10/17 22:45 (Pepcid) 10 mg Q12HR PO 09/11/17 09:00 09/18/17 20:20 (NS Flush) 2 ml UNSCH PRN IV FLUSH 09/10/17 22:45 (NS Flush) 2 ml BID IV FLUSH 09/11/17 09:00 09/18/17 20:21 (Zofran Inj) 4 mg Q6H PRN IVP 09/10/17 22:45 09/13/17 01:42 (Tylenol) 650 mg Q6H PRN PO 09/10/17 22:45 09/16/17 18:02 (Narcan Inj) 0.4 mg UNSCH PRN IV PUSH 09/10/17 22:45 (Madelaine-Colace) 1 tab BID PO 09/11/17 09:00 09/18/17 11:55 (Milk Of Magnesia Liq) 30 ml Q12H PRN PO 09/10/17 22:45 (Senokot) 17.2 mg Q12H PRN PO 09/10/17 22:45 (Dulcolax Supp) 10 mg DAILY PRN RECTAL 09/10/17 22:45 (Lactulose Liq) 30 ml DAILY PRN PO 09/10/17 22:45 09/18/17 11:49 (Xanax) 0.125 mg TID PRN PO 09/14/17 12:30 09/15/17 20:14 (Antivert) 25 mg Q8H PRN PO 09/14/17 12:30 (Pill Splitter) 1 ea UNSCH PRN OTHER 09/14/17 12:45 (Imdur) 60 mg DAILY@0700 PO 09/16/17 09:00 09/19/17 05:42 (Heparin Inj) 5,000 units Q12HR SQ 09/16/17 10:00 09/18/17 20:21 Vital Signs / I&O Vital Signs Date Time Temp Pulse Resp B/P (MAP) Pulse Ox O2 Delivery O2 Flow Rate FiO2 09/19/17 05:01 97.7 58 18 115/75 (88) 98 09/19/17 04:43 62 09/19/17 04:00 3.00 09/19/17 00:54 97.4 62 18 114/72 (86) 98 09/19/17 00:00 Nasal Cannula 3.00 09/18/17 23:45 60 09/18/17 20:50 98.0 61 18 111/57 (75) 96 09/18/17 20:00 3.00 09/18/17 19:47 61 09/18/17 16:42 18 09/18/17 16:07 97.6 77 18 139/68 (91) 92 09/18/17 15:36 96 Nasal Cannula 3.00 09/18/17 12:07 98.1 66 18 114/59 (77) 96 09/18/17 08:07 97.6 74 18 132/80 (97) 96 09/18/17 07:57 Nasal Cannula 3.00 21 I/O 12/13/09/18/17 09/18/17 09/19/17 09/19/17 09/19/17 06:59 14:59 22:59 06:59 14:59 22:59 Intake Total 250 ml 360 ml Output Total 900 ml 950 ml Balance 250 ml -540 ml -950 ml Intake Oral 250 ml 360 ml Output Urine Total 900 ml 950 ml # Bowel Movements 1 1 Physical Exam Lungs clear RRR Laboratory Laboratory Tests Test 09/18/17 08:39 09/19/17 05:35 White Blood Count 6.9 TH/MM3 Red Blood Count 4.52 MIL/MM3 Hemoglobin 12.6 GM/DL Hematocrit 39.0 % Mean Corpuscular Volume 86.3 FL Mean Corpuscular Hemoglobin 28.0 PG Mean Corpuscular Hemoglobin Concent 32.4 % Red Cell Distribution Width 15.7 % Platelet Count 176 TH/MM3 Mean Platelet Volume 8.7 FL Neutrophils (%) (Auto) 72.8 % Lymphocytes (%) (Auto) 14.4 % Monocytes (%) (Auto) 10.8 % Eosinophils (%) (Auto) 1.0 % Basophils (%) (Auto) 1.0 % Neutrophils # (Auto) 5.0 TH/MM3 Lymphocytes # (Auto) 1.0 TH/MM3 Monocytes # (Auto) 0.7 TH/MM3 Eosinophils # (Auto) 0.1 TH/MM3 Basophils # (Auto) 0.1 TH/MM3 CBC Comment DIFF FINAL Differential Comment Blood Urea Nitrogen 27 MG/DL 25 MG/DL Creatinine 1.55 MG/DL 1.61 MG/DL Random Glucose 78 MG/DL 82 MG/DL Calcium Level 8.9 MG/DL 9.0 MG/DL Sodium Level 141 MEQ/L 140 MEQ/L Potassium Level 4.7 MEQ/L 4.8 MEQ/L Chloride Level 102 MEQ/L 102 MEQ/L Carbon Dioxide Level 35.2 MEQ/L 36.0 MEQ/L Anion Gap 4 MEQ/L 2 MEQ/L Estimat Glomerular Filtration Rate 46 ML/MIN 44 ML/MIN Assessment and Plan Assessment and Plan Will plan cath this afternoon. Fluids begun. Hernan Brice MD Sep 19, 2017 07:25
[2017-09-19] MEDS: SODIUM CHLOR 0.9% 1000 ML INJ 1,000 ML IV SCH ×2 (08:14→17:23)
[2017-09-19] MEDS: SODIUM CHLORIDE 0.9% FLUSH 10 ML FLUSH IV FLUSH SCH ×2 (08:15→20:23)
[2017-09-19] MEDS: POTASSIUM CHLORIDE 20 MEQ CONTROLLED RELEASE TAB PO SCH ×3 (08:16→18:00)
[2017-09-19] MEDS: ASPIRIN EC 81 MG TABEC PO SCH (08:16)
[2017-09-19] MEDS: FAMOTIDINE 20 MG TAB PO SCH ×2 (08:16→20:23)
[2017-09-19] MEDS: CLOPIDOGREL 75 MG TAB PO SCH (08:16)
[2017-09-19] MEDS: TAMSULOSIN HCL 0.4 MG CAP PO SCH (08:16)
[2017-09-19] MEDS: PREGABALIN 25 MG CAP PO SCH ×3 (08:17→18:00)
[2017-09-19] MEDS: ALLOPURINOL 300 MG TAB PO SCH (08:17)
[2017-09-19] MEDS: METOPROLOL TARTRATE 25 MG TAB PO SCH ×2 (08:17→20:23)
[2017-09-19] MEDS: AMIODARONE 200 MG TAB PO SCH ×2 (08:17→20:23)
[2017-09-19] MEDS: DOCUSATE SODIUM 50 MG/SENNA 8.6 MG TAB PO SCH ×2 (08:17→20:24)
[2017-09-19] MEDS: HEPARIN SODIUM - SQ 10,000 UNITS/ML VIAL SQ SCH (08:18)
[2017-09-19] MEDS: traMADol HCL 50 MG TAB PO PRN ×2 (08:38→20:22)
--- NOTE | 2017-09-19 08:47 | HHI.PR ---
Subjective Remarks Follow-up chest pain, chronic kidney disease. The patient states that he feels "okay" this morning. He has been ambulating. He is scheduled for cardiac catheterization this afternoon. No chest pain currently. Objective Vitals Vital Signs Date Time Temp Pulse Resp B/P (MAP) Pulse Ox O2 Delivery O2 Flow Rate FiO2 09/19/17 08:07 97.3 62 18 113/66 (82) 97 09/19/17 07:43 Nasal Cannula 3.00 09/19/17 05:01 97.7 58 18 115/75 (88) 98 09/19/17 04:43 62 09/19/17 04:00 3.00 09/19/17 00:54 97.4 62 18 114/72 (86) 98 09/19/17 00:00 Nasal Cannula 3.00 09/18/17 23:45 60 09/18/17 20:50 98.0 61 18 111/57 (75) 96 09/18/17 20:00 3.00 09/18/17 19:47 61 09/18/17 16:42 18 09/18/17 16:07 97.6 77 18 139/68 (91) 92 09/18/17 15:36 96 Nasal Cannula 3.00 09/18/17 12:07 98.1 66 18 114/59 (77) 96 I/O 09/18/17 09/18/17 09/18/17 09/19/17 09/19/17 09/19/17 07:00 15:00 23:00 07:00 15:00 23:00 Intake Total 250 ml 360 ml Output Total 900 ml 950 ml Balance 250 ml -540 ml -950 ml Intake Oral 250 ml 360 ml Output Urine Total 900 ml 950 ml # Bowel Movements 1 1 Result Diagram: 09/18/17 0839 09/19/17 0535 Imaging Last Impressions Chest X-Ray 09/16/17 1035 Signed Impressions: Service Date/Time: Saturday, September 16, 2017 10:44 - CONCLUSION: 1. Mild pulmonary congestion 2. Otherwise stable chest Cornel Gimenez MD Lung Scan-VQ Nuclear Medicine 09/16/17 0000 Signed Impressions: Service Date/Time: Saturday, September 16, 2017 10:05 - CONCLUSION: Low probability of pulmonary embolism. Cornel Gimenez MD Myocardial Perfusion Scan Nuc Med 09/12/17 0000 Signed Impressions: Service Date/Time: September 10:07 - CONCLUSION: 1. Small focal area of moderate reversibility in the anterior wall of the mid left ventricle. 2. Large fixed decreased perfusion defect involving the inferior half of the left ventricle, characteristic of old infarct and scar. 3. Global hypokinesia with significantly reduced left ventricular ejection fraction calculated at 28%%. This represents a decrease from the prior study when it was calculated at 48%%.. RISK CATEGORY: High (>3%% Annual Mortality Rate) Pj Arellano MD Chest CT 09/11/17 0600 Signed Impressions: Service Date/Time: Monday, September 11, 2017 03:29 - CONCLUSION: 1. Stable moderate elevation of the right hemidiaphragm with apparent scarring and stable pleural thickening. 2. Calcified pleural plaques are again noted. 3. Status post median sternotomy for bypass grafting with postsurgical change. Patrice Hendricks MD Head CT 09/10/17 0000 Signed Impressions: Service Date/Time: Sunday, September 10, 2017 12:15 - CONCLUSION: 1. No acute findings in the brain. Rod Montes MD Objective Remarks General: No acute distress. Heart: Regular rate and rhythm. No murmur. Lungs: Clear to auscultation bilaterally. Breathing is nonlabored. Abdomen: Soft, nontender, nondistended. Extremities: Trace bilateral lower extremity edema. Psych: Alert and oriented. Procedures None Urinary Catheter: No Vascular Central Line Catheter: No A/P Problem List: (1) Syncope ICD Code: R55 - Syncope and collapse Status: Acute (2) SOB (shortness of breath) ICD Code: R06.02 - Shortness of breath Status: Chronic (3) Chest pain ICD Code: R07.9 - Chest pain Status: Acute (4) Acute kidney injury superimposed on chronic kidney disease ICD Code: N17.9 - Acute kidney failure, unspecified; N18.9 - Chronic kidney disease, unspecified Assessment and Plan 1. Syncope/weakness/dizziness: Symptoms improved. Continue Antivert. PT/OT. 2. Chest pain: Patient has significant history of coronary artery disease including prior CABG. Lexiscan abnormal. Still having intermittent episodes of chest pain. Continue medical management at this time. V/Q scan is low probability for PE. Per cardiology, plan for cardiac catheterization this afternoon. 3. History of CHF: Dyspnea is improved. EF 55% on echocardiogram, 28% on Lexiscan. Appreciate cardiology recommendations. Will need to restart Bumex when okay with nephrology, likely after cardiac catheterization. Oxygen as needed. 4. Acute kidney injury superimposed on chronic kidney disease: Creatinine has improved and is now essentially at the patient's baseline. Bumex on hold. Appreciate nephrology recommendations. Avoid nephrotoxic agents. 5. Bilateral foot pain, history of gout: Continue allopurinol, Lyrica. Completed 3 day course of prednisone. Pain has improved. 6. DVT prophylaxis: Heparin. Discharge Planning When cleared by cardiology. Problem Qualifiers (1) Chest pain: Qualified Codes: R07.9 - Chest pain, unspecified Octavio Pace MD Sep 19, 2017 08:47
[2017-09-19] MEDS: ALPRAZolam 0.25 MG TAB PO PRN (12:19)
[2017-09-19] MEDS ORDERED: HEPARIN-NS/PF INJ 1,000 ML ONE (13:24)
[2017-09-19] MEDS ORDERED: MIDAZOLAM HCL 2 MG/2 ML VIAL ONE (13:25)
[2017-09-19] MEDS ORDERED: HEPARIN SODIUM - IV 10,000 UNITS/10 ML VIAL ONE (13:48)
[2017-09-19] MEDS ORDERED: SODIUM CHLOR 0.9% 1000 ML INJ 1,000 ML IV SCH (14:09)
[2017-09-19] MEDS ORDERED: MISC INFORMATION XX ONE (14:15)
--- NOTE | 2017-09-19 14:17 | CATHPROC ---
[employer] HIS Report Study Information Study Number Admission Scheduled Start Study Start [id number] Sep 13 2017 9:55AM 09/19/2017 Sep 19 2017 12:58PM [employer] Cardiac Catheterization Admit Source Facility Department Emergency department [facility] - Hub Cutter Apprentice Physician and Clinical Staff Initial Hernan Clarke Surveillance Camera Technician Gustabo Rivera,SAMI Recorder Haley Cotton BSN Scrub Hostjoyce, Dax,RT(R) Procedures Performed Procedure Location (Site) Vessel Name Coronary Angiograms LCA Left Coronary Coronary Angiograms RCA Right Coronary Coronary Angiograms HURTADO-LAD Left Coronary Coronary Angiograms Gft. Stump 1 SVG Graft Coronary Angiograms Gft. Stump 2 SVG Graft L Heart Cath Stent CIRC Prox CIRC Wire insertion Fem Art (right) Femoral Art Equipment Time Training Development Specialist Description Size Mfg Part Number Used/Scraped [id number] 13:48 [employer] CRITICAL CARE WIRE, ASAHI PROWATER 180CM 180CM Used *[id number] TRANSDUCER, TRUWAVE [id number] 13:01 YU MAYER * Used W/STOCKCOCK *[id number] *[id number] *[id number] *[id number] 13:58 DAIG/ST. KISHA MEDICAL ANGIOSEAL, FR6 VIP FR 6 Used *[id number] 13:01 [employer] INDUSTRIES PACK, CCL CUSTOM * Used *[id number] 13:01 [employer] PACER PEN, SKIN DUAL W/ RULER * Used *[id number] 13:53 [employer] STENT, 2.5 12 INTEGRITY 2.5 12 Used *[id number] 13:55 [employer] MEDICAL 30 SHIRAZ INDEFLATOR Used *[id number] 13:01 [employer] SHEATH, FR6.5 PRELUDE 11CM FR 6.5 038ACT Used *[id number] 13:01 [employer] WIRE, 3MMJ .035 180CM 180CM Used *[id number] 13:01 NAMIC MANIFOLD, 4 PORT * Used *[id number] 13:01 [employer] OMNIPAQUE, 350 MG, 100ML 100ML [id number] Used [id number] 13:01 [employer] MEDICAL BLANKET,WARM AIR CCL * Used *[id number] Equipment Model, Serial, Lot Number and Expiration Data Description Model Number Serial Number Lot Number Expiration Date ANGIOSEAL, [facility] [id number] 06-06-2018 STENT, 2.[address] [place] [address] [id number] 04-09-2019 History: Current Medications Medication Dosage/Unit Route Frequency Last Date/Time Taken LOPRESSOR 25 mg 09/19/2017 Imdur 60 mg 09/19/2017 ASA 81 mg PLAVIX 75 mg 09/19/2017 History: Allergies Allergy Reaction Sulfa (Sulfonamide Antibiotics) HIVES lorazepam Confusion oxycodone RASH History: Risk Factors Family History of Hypertension Previous HI Previous Heart Failure Premature CAD Yes Yes Yes Yes Prior Valve Prior PCI Prior CABG Prior CABGDate Surgery No No Yes 09/06/2000 Cerebrovascular Peripheral Artery Chronic Lung On Dialysis Diabetes Disease Disease Disease No No No Yes No History: Symptoms/Diagnosis Selection Items Angina-unstable History: CV Disease Selection Items Known CAD HI History: Stress Tests Stress or Imaging Studies Performed Yes Standard Exercise Stress Test No Stress Echo No Stress Test SPECT Stress Test SPECT Result Stress Test SPECT Ischemia Risk/Extent Yes Positive High Stress Test CMR No Cardiac CTA Coronary Calcium Score No No History: Other Disease Selection Items CAD CHF History: Other Current Smoker Method Quit Packs a Day Years Used Pack Years No Cigarettes 20 Years Ago 1 3 3 Labs Hgb (g/dl) Hct (%) RBC (MIL/MM3) WBC (l/cumm) Platelets (thousands) 11.60-17.00 35.00-51.00 4.00-5.90 4.00-11.00 150.00-450.00 12.6 39 4.5 6.9 176 Glucose (mg/dl) BUN (mg/dl) Creatinine (mg/dl) BUN:Creatinine (1:x) 74.00-106.00 7.00-18.00 0.50-1.30 10.00-20.00 82 25 1.6 15.6 Na (meq/l) K (meq/l) Cl (meq/l) CO2 (mmol/L) Ca (mg/dl) 136.00-145.00 3.50-5.10 98.00-107.00 21.00-32.00 8.50-10.10 140 4 102 36 9 PT (sec) PTT (sec) INR (PTT:PT) 9.80-11.60 24.30-30.10 0.90-1.10 10.7 26.4 1.1 Troponin I (ng/ml) Troponin T (ng/ml) CPK (u/l) CPK-MB (ng/ML) 0.02-0.05 0.40-2.10 26.00-308.00 0.50-3.60 0.02 0.02 51 Not Drawn Medication Medication Total Dose (Bolus/Oral) Medication Total Dosage/Unit 1% XYLOCAINE 20 mL HEPARIN 7000 units VERSED 2 mg Medications (Bolus/Oral) Medication Time Given Dosage/Unit Administered By Reason VERSED 09/19/2017 1:32:14 PM 2 mg Gustabo Rivera 2 mg VERSED given in lab by Gustabo Rivera RN in Left Antecubital via Peripheral IV. 1% XYLOCAINE 09/19/2017 1:34:45 PM 20 mL Hernan Brice 20 mL 1% XYLOCAINE given in lab by Hernan Brice in Right Groin via Subcutaneous. HEPARIN 09/19/2017 1:49:23 PM 7000 units Gustabo Rivera 7000 units HEPARIN given in lab by Gustabo Rivera, SAMI in Left Antecubital via Peripheral IV. Medication (Drip) Medication Time Given Dosage/Unit Concentration/Unit Diluent (ml) Solution IV Solutions 09/19/2017 1:28:55 PM 50 mL (IV) NaCl .9 IV Solutions given by Gustabo Rivera, SAMI via Peripheral IV. Pump/Drip Flow using NaCl .9. Initial Case Assessment Cardiovascular HR Rhythm 61 paced Edema Present Skin color Skin None Normal Warm Dry Circulatory - Right Pulses Dorsalis Pedis Femoral 1 1 Scale (0,1,2,3,4,d) Circulatory - Left Pulses Dorsalis Pedis Femoral 1 1 Scale (0,1,2,3,4,d) Neurological State Oriented to time-place- Alert Moves all extremities person Respiration - General Respiration Rate SpO2 (%) O2 (lpm) (B/min) 14 95 3 Final Case Assessment Cardiovascular HR Rhythm NIBP Chest Pain 60 paced 104/59 0 Edema Present Skin color Skin None Normal Warm Dry Circulatory - Right Pulses Dorsalis Pedis Posterior Tibial 1 1 Scale (0,1,2,3,4,d) Circulatory - Left Pulses Dorsalis Pedis Posterior Tibial 1 1 Scale (0,1,2,3,4,d) Neurological State Oriented to time-place- Alert Moves all extremities person Respiration - General Respiration Rate SpO2 (%) O2 (lpm) (B/min) 14 95 3 Chronological Log Time Study Chronological Log 13:19:27 Patient arrived via Bed. 13:19:32 Patient Name, D.O.B, / Armband Verified By R.N. 13:19:36 Consent signed by the physician and the patient and verified by the Hub Cutter Apprentice staff. 13:20:42 Pre-op and post- op instructions given; patient acknowledges understanding of instructions. 13:21:49 Presedation assessment performed by Hub Cutter Apprentice RN. 13:22:55 Immediate Presedation assesment performed by physician. 13:28:22 Patient has been NPO for More than 6Hrs. 13:28:24 Skin Breakdown- none per patient 13:28:36 A # 20 IV was noted in the Antecubital (left). 13:28:55 IV Solutions given by Gustabo Rivera, SAMI via Peripheral IV. Pump/Drip Flow using NaCl .9. 13:29:30 History and physical on the chart or being dictated. Assessment: Initial Case, HR=61 BPM, Rhythm=paced, Edema=None, Color=Normal, Skin = Warm, Dry Right Pulses: Reynaldo Ped=1, Femoral=1 13:29:32 Left Pulses: Reynaldo Ped=1, Femoral=1 Neurological: State=Alert, Ox3, OLSON Respiration: Resp=14 B/min, SpO2=95 %, O2=3 lpm Vitals capture started with the following parameters, Patient=Adult, Interval=5 min, Initial Pr cendcj=446 mmHg, 13:29:35 Deflation Rate=5 mmHg, Cuff placed on Right Arm 13:31:12 MD arrived. 13:31:43 HR=60 bpm, UCYX=045/70 mmhg, SpO2=96.0 %, Resp=21 B/min, Pain=0, Avery=10 13:32:14 2 mg VERSED given in lab by Gustabo Rivera, RN in Left Antecubital via Peripheral IV. Time Out. Correct patient, correct procedure, correct physician, power injector loaded, or not loaded with contrast with 13:33:22 surgical team present. Time Out Concurred by MD and individual staff in procedure. 13:33:26 Case Start 13:34:45 20 mL 1% XYLOCAINE given in lab by Hernan Brice in Right Groin via Subcutaneous. 13:35:05 Pressure channel 1 zeroed. 13:35:10 HR=60 bpm, UAHF=131/80 mmhg, SpO2=93.0 %, Resp=16 B/min, Pain=0, Avery=9 13:35:45 Reference ECG taken 13:37:52 Access site was Right Femoral Artery. 13:38:01 A SHEATH, FR6.5 PRELUDE 11CM FR 6.5 was advanced into the Fem Art (right) using the Modifmattie d Seldinger technique. Recorded Pressure: Ao, HR=?, Condition=Condition 1 13:39:51 (Aorta) Ao ?/?/? 13:40:13 HR=60 bpm, ZCDL=936/61 mmhg, SpO2=96.0 %, Resp=19 B/min, Avery=9 13:40:29 A JL 4.0 INFINITI CATHETER FR 6 was advanced over a wire. contrast was used for injections. 13:40:39 The LCA was injected and visualized at various angles. OMNIPAQUE, 350 MG, 100ML 100ML used . Recorded Pressure: Ao, HR=?, Condition=Condition 1 13:42:02 (Aorta) Ao ?/?/? 13:43:03 Catheter was removed 13:43:22 A JR 4.0 INFINITI CATHETER FR 6 was advanced over a wire. contrast was used for injections. 13:44:01 The RCA was injected and visualized at various angles. OMNIPAQUE, 350 MG, 100ML 100ML used . 13:44:56 The Gft. Stump 1 was injected and visualized at various angles. OMNIPAQUE, 350 MG, 100ML 10 0ML used. 13:45:10 HR=60 bpm, WXFO=279/58 mmhg, SpO2=96.0 %, Resp=15 B/min, Avery=9 13:45:41 The Gft. Stump 2 was injected and visualized at various angles. OMNIPAQUE, 350 MG, 100ML 10 0ML used. 13:46:22 The HURTADO-LAD was injected and visualized at various angles. OMNIPAQUE, 350 MG, 100ML 100ML used. 13:49:23 7000 units HEPARIN given in lab by FerGustabo carranza RN in Left Antecubital via Peripheral IV . 13:49:43 A XB 3.5 GUIDE CATHETER FR 6 was advanced over a wire. contrast was used for injections. 13:50:17 HR=60 bpm, MEKP=778/44 mmhg, SpO2=96.0 %, Resp=15 B/min, Pain=0, Avery=9 13:51:49 A WIRE, ASAHI PROWATER 180CM 180CM was inserted via Fem Art (right). An STENT, 2.5 12 INTEGRITY 2.5 12 Bare Metal Stent was inserted through a XB 3.5 GUIDE CATHETER FR 6 over a 13:54:02 WIRE, ASAHI PROWATER 180CM 180CM. A STENT, 2.5 12 INTEGRITY 2.5 12 was deployed using a 30 SHIRAZ INDEFLATOR at 10 atmospheres for 1 5 seconds in 13:54:34 the CIRC Prox. 13:55:15 Catheter was removed 13:55:16 HR=60 bpm, NIBP=86/48 mmhg, SpO2=96.0 %, Resp=14 B/min, Avery=9 13:55:21 Wire removed 13:55:38 Activated Clotting Time Drawn 13:57:57 An injection in the Fem Art (right) was made through the SHEATH, FR6.5 PRELUDE 11CM FR 6.5. 14:00:46 HR=60 bpm, EWVM=343/61 mmhg, SpO2=96.0 %, Resp=9 B/min 14:05:17 Case End 14:05:43 HR=60 bpm, HZPZ=313/65 mmhg, SpO2=95.0 %, Resp=18 B/min 14:05:55 ANGIOSEAL, FR6 VIP FR 6 placement in the Fem Art (right) 14:06:25 Sterile dressing applied to site 14:11:40 Patient moved to stretcher 14:13:33 Vitals capture stopped. Assessment: Final Case, HR=60 BPM, Rhythm=paced, UPXP=058/59 mmhg, Chest Pain=0, Edema=None, Color=Normal, Skin = Warm, Dry Right Pulses: Reynaldo Ped=1, Post Tib=1 14:14:04 Left Pulses: Reynaldo Ped=1, Post Tib=1 Neurological: State=Alert, Ox3, OLSON Respiration: Resp=14 B/min, SpO2=95 %, O2=3 lpm 14:15:29 No case complications noted. 14:15:34 Cine recording checked. 14:15:38 Bedside Report will be given. 14:15:40 DOCU called. Spoke to Tam 14:16:00 A Left Heart Cath was performed. End Study - Contrast Media Used In Study Contrast Total Opened (mL) Total Used (mL) Total Wasted (mL) Omnipaque 150 70 80 End Study - Maximum Contrast Load Max Contrast Load (mL) 343.8 End Study - Radiation Exposure Fluoro Time (minutes) 3.7 End Study - Patient Disposition Complications Transferred To Interventional Outcome No Telemetry Bed successful
[2017-09-19] MEDS ORDERED: IOHEXOL 350 MG/ML 100 ML BTL (for Cath Lab) OTHER ONE (14:56)
--- NOTE | 2017-09-19 16:26 | MA ---
cc: RUSSELL CASTRO MD DATE: 09/19/2017 PROCEDURE: The patient was prepped and draped usual fashion. A 6 sheath was inserted percutaneously in the right femoral artery. Coronary angiography was done with Eh preformed catheters. RESULTS The left main coronary was normal. The left anterior descending artery was totally occluded in its midportion. Competitive flow was noted from and returned mammary artery graft. Left circumflex artery arose from left main a 90% stenosis was present its proximal portion. The first obtuse marginal branch was given off without significant stenoses and second just distal to this a total occlusion of the circumflex was present with good collaterals from the diagonal and left anterior descending filling the distal portion of the second large obtuse marginal branch. The right coronary was anatomically dominant. A 38-40% stenosis was present essentially throughout the artery and diffuse pattern. Two vein graft stumps were identified and internal mammary artery graft to the left anterior descending was widely patent with good flow into the left anterior descending. is felt that the circumflex artery may have been responsible for the patients chest discomfort. An XB 35 was used to cannulate the left main. Heparin was administered and a Tolerx wire advanced into the distal circumflex artery, into the circumflex across the lesion. Primary stenting was accomplished with a 2.5 x 12 mm bare metal stent with inflation to 10 atmospheres. ADENIKE-III flow was present both pre and post procedure. Post stenosis was zero at this point the equipment was withdrawn. Hemostasis was achieved with Angio-Seal technique. MD JAMAAL Owens/petrona /2:11 PM /4:09 PM
[2017-09-20] VITALS: BP 117/73; PULSE 62; RESP 20; TEMP 98.1; O2SAT 95
[2017-09-20] MEDS: SODIUM CHLOR 0.9% 1000 ML INJ 1,000 ML IV SCH (02:35)
[2017-09-20 04:00] VITALS: BP 147/67; PULSE 67; RESP 20; TEMP 97.8; O2SAT 94
[2017-09-20 04:01] VITALS: PULSE 59
[2017-09-20] MEDS: traMADol HCL 50 MG TAB PO PRN (05:14)
[2017-09-20] MEDS: ISOSORBIDE MONONITRATE 60 MG TAB PO SCH (06:04)
[2017-09-20 07:54] LABS: BICARBONATE 31.7 MEQ/L (21.0-32.0); POTASSIUM 4.6 MEQ/L (3.5-5.1)
[2017-09-20 07:55] LABS: AUTOMATED NEUTROPHIL # 5.1 TH/MM3 (1.8-7.7); BASOPHIL # 0.1 TH/MM3 (0-0.2); BASOPHIL % 1.2 % (0.0-2.0); EOSINOPHIL # 0.2 TH/MM3 (0-0.4); EOSINOPHIL % 2.5 % (0.0-4.0); HEMATOCRIT 36.5 % (39.0-51.0); HEMO FLAGS DIFF FINAL; LYMPH % 9.9 % (9.0-44.0); LYMPHOCYTE # 0.7 TH/MM3 (1.0-4.8); MEAN CELL VOLUME 85.9 FL (80.0-100.0); MEAN CORPUSCULAR HEMOGLOBIN 28.6 PG (27.0-34.0); MEAN CORPUSCULAR HGB CONC 33.3 % (32.0-36.0); MONO % 9.4 % (0.0-8.0); PLATELET COUNT 152 TH/MM3 (150-450); RED BLOOD COUNT 4.25 MIL/MM3 (4.50-5.90); RED CELL DISTRIBUTION WIDTH 15.9 % (11.6-17.2); WHITE BLOOD COUNT 6.6 TH/MM3 (4.0-11.0)
[2017-09-20] MEDS ORDERED: MECL1TAB42 PO (08:26)
[2017-09-20] MEDS ORDERED: BUME1TAB PO (08:26)
--- NOTE | 2017-09-20 08:27 | HHI.DCPOC ---
Discharge Care Plan Diagnosis: (1) CKD (chronic kidney disease) stage 3, GFR 30-59 ml/min (2) Hyperlipemia (3) Hypertension (4) Chest pain (5) CAD (coronary artery disease) (6) History of CHF (congestive heart failure) (7) TWIN (acute kidney injury) (8) Gout Goals to Promote Your Health * To prevent worsening of your condition and complications * To maintain your health at the optimal level Directions to Meet Your Goals Take your medications as prescribed Follow your dietary instruction Follow activity as directed Keep your appointments as scheduled Take your immunizations and boosters as scheduled If your symptoms worsen call your PCP, if no PCP go to Urgent Care Center or Emergency Room Smoking is Dangerous to Your Health. Avoid second hand smoke Call the 24-hour hour crisis hotline for domestic abuse at Octavio Pace MD Sep 20, 2017 08:27
[2017-09-20 08:33] VITALS: BP 128/78; PULSE 77; RESP 18; TEMP 97.5; O2SAT 94
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
[2017-09-20] MEDS: METOPROLOL TARTRATE 25 MG TAB PO SCH (08:51)
[2017-09-20] MEDS: PREGABALIN 25 MG CAP PO SCH (08:51)
[2017-09-20] MEDS: AMIODARONE 200 MG TAB PO SCH (08:51)
[2017-09-20] MEDS: FAMOTIDINE 20 MG TAB PO SCH (08:51)
[2017-09-20] MEDS: TAMSULOSIN HCL 0.4 MG CAP PO SCH (08:51)
[2017-09-20] MEDS: POTASSIUM CHLORIDE 20 MEQ CONTROLLED RELEASE TAB PO SCH (08:51)
[2017-09-20] MEDS: ALLOPURINOL 300 MG TAB PO SCH (08:51)
[2017-09-20] MEDS: CLOPIDOGREL 75 MG TAB PO SCH (08:51)
[2017-09-20] MEDS: ASPIRIN EC 81 MG TABEC PO SCH (08:51)
[2017-09-20] MEDS: DOCUSATE SODIUM 50 MG/SENNA 8.6 MG TAB PO SCH (08:51)
[2017-09-20] MEDS: SODIUM CHLORIDE 0.9% FLUSH 10 ML FLUSH IV FLUSH SCH (08:55)
[2017-09-20 09:13] VITALS: PULSE 61
== END 2017-09-20 12:29 | disposition home or self-care (01) | DRG 249 ==
LOC: NEPE 10:47 → NEDA 17:26 → NEPHCDU 18:13 → OBSVTOIN 09-13 09:55 → N04A 09-14 16:38
PROVIDERS: ADMIT Family Medicine; ATTEND Family Medicine
PROC: 4B02XTZ Measurement of Cardiac Defibrillator, External Approach (ICD-10-PCS; 2017-09-10)
PROC: 4A023N7 Measurement of Cardiac Sampling and Pressure, Left Heart, Percutaneous Approach (ICD-10-PCS; 2017-09-19)
PROC: B2131ZZ Fluoroscopy of Multiple Coronary Artery Bypass Grafts using Low Osmolar Contrast (ICD-10-PCS; 2017-09-19)
PROC: B2181ZZ Fluoroscopy of Left Internal Mammary Bypass Graft using Low Osmolar Contrast (ICD-10-PCS; 2017-09-19)
PROC: B2111ZZ Fluoroscopy of Multiple Coronary Arteries using Low Osmolar Contrast (ICD-10-PCS; 2017-09-19)
PROC: 02703DZ Dilation of Coronary Artery, One Artery with Intraluminal Device, Percutaneous Approach (ICD-10-PCS; principal; 2017-09-19 13:30)
DX: I25.119 Atherosclerotic heart disease of native coronary artery with unspecified angina pectoris (principal); E87.3 Alkalosis; N17.9 Acute kidney failure, unspecified; I13.0 Hypertensive heart and chronic kidney disease with heart failure and stage 1 through stage 4 chronic kidney disease, or unspecified chronic kidney disease; N18.3 Chronic kidney disease, stage 3 (moderate); I50.32 Chronic diastolic (congestive) heart failure; J44.1 Chronic obstructive pulmonary disease with (acute) exacerbation; G20 Parkinson's disease; R55 Syncope and collapse; R09.02 Hypoxemia; F41.9 Anxiety disorder, unspecified; Z95.1 Presence of aortocoronary bypass graft; Z95.5 Presence of coronary angioplasty implant and graft; Z95.810 Presence of automatic (implantable) cardiac defibrillator; Z87.891 Personal history of nicotine dependence; Z87.442 Personal history of urinary calculi; M10.9 Gout, unspecified; K21.9 Gastro-esophageal reflux disease without esophagitis; E78.5 Hyperlipidemia, unspecified; I25.2 Old myocardial infarction; M19.90 Unspecified osteoarthritis, unspecified site; Z99.81 Dependence on supplemental oxygen; Z23 Encounter for immunization
CPT/HCPCS: 70450; 71010; 71250; 78452; 78582; 80048; 80053; 81001; 82550; 82607; 83735; 83880; 84443; 84484; 85002; 85025; 85379; 85610; 85730; 90686; 92928; 93005; 93017; 93306; 93454; A9502; A9540; A9567; C1760; C1769; C1876; C1887; C1893; G0269; G8987-GP; G8988-GP; J1644; J2250; J2405; J2785; J7030; J7512; Q2038; Q9967

== ENCOUNTER 2018-05-24 10:49 | Inpatient (IN) ==
[2018-05-24] MEDS ORDERED: Sodium Chlor 0.9% Inj 500 ML IV.SIG ONE (11:28)
[2018-05-24] MEDS ORDERED: Morphine Inj 4 MG/ML Vial IV.PUSH ONE (11:28)
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
[2018-05-24 12:20] LABS: Baso # (Auto) 0.1 th/mm3 (0.0-0.2); Baso % (Auto) 0.7 % (0.0-2.0); Eos % (Auto) 0.1 % (0.0-4.0); Hematocrit 46.4 % (39.0-51.0); Hemoglobin 15.3 gm/dL (13.0-17.0); Lymph # (Auto) 0.6 th/mm3 (1.0-4.8); Lymph % (Auto) 7.8 % (9.0-44.0); Mean Corpuscular Volume 87.9 fL (80.0-100.0); Mean Platelet Volume 8.5 fL (7.0-11.0); Mono # (Auto) 0.7 th/mm3 (0.0-0.9); Mono % (Auto) 8.9 % (0.0-8.0); Neut # (Auto) 6.5 th/mm3 (1.8-7.7); Neut % (Auto) 82.5 % (16.0-70.0); Platelet Count 179 th/mm3 (150-450); Red Blood Count 5.29 mil/mm3 (4.50-5.90); Red Cell Distribution Width 15.1 % (11.6-17.2); White Blood Count 7.9 th/mm3 (4.0-11.0)
[2018-05-24 12:33] LABS: Activated Partial Thrombo Time 26.2 sec (24.3-30.1); INR 1.1 Ratio; Prothrombin Time 10.7 sec (9.8-11.6)
[2018-05-24 12:49] LABS: Anion Gap 6 meq/L (5-15); Blood Urea Nitrogen 39 mg/dL (7-18); Carbon Dioxide 36.2 meq/L (21.0-32.0); Chloride 98 meq/L (98-107); Creatine Kinase 61 U/L (39-308); Glomerular Filtration Rate 38 mL/min (>89); Glucose,Random 88 mg/dL (74-106); Magnesium 2.5 mg/dL (1.5-2.5); Potassium 3.8 meq/L (3.5-5.1); Sodium 140 meq/L (136-145)
[2018-05-24] MEDS ORDERED: Ketorolac Inj 30 MG/ML (IVP) Vial IV.PUSH ONE (13:26)
--- NOTE | 2018-05-24 16:04 | P.HPIM ---
History of Present Illness Primary Care Physician: Dax Montana MD Chief Complaint: Pacemaker fired History of Present Illness: The patient is a 57-year-old male with past medical history of CAD status post CABG who is presenting to the hospital following his pacemaker firing. The patient states that his pacemaker has fired 4 times in the past 2 weeks. He said the second shock he received was the worst. He states that the intensity of the shocks ranged from having a hand grenade go off to a nuclear weapon going off. He said today he was walking his dog when he felt symptomatic. He said he was lightheaded and dizzy and then he was brought to his knees. He said the pacemaker fired and he blacked out for a few seconds. He was able to slowly get up and walk back to his car and drive home. He said at home he did not feel right. He felt dizzy with any movement. He then got a ride to the hospital. He says that a few months ago he had some sort of catheterization and following that he did not need to take Imdur for chest pain. He said that about [address] Grider performed procedure to adjust the pacemaker. The patient said that his pacemaker was interrogated in the emergency department. He is currently a little shaky but he says that is from his breathing treatments. He says his amiodarone dose used to be higher. Inpatient Certification: I certify that the inpatient services were ordered in accordance with Medicare regulations governing the order. This includes certification that hospital inpatient services are reasonable and necessary and in the case of services not specified as inpatient-only under 42 CFR 419.22(n), that they are appropriately provided as inpatient services in accordance to with the 2-midnight benchmark under 43 CFR 412.3(e) Estimated Total Length of Stay (Days): 2 Plans for Post Hospital Care: Home Review of Systems All other systems reviewed negative except as stated in HPI PMFSH - History History Provided By: Patient - Medical History Medical History: Medical History (Last Updated 05/24/18 @ 15:58 by Patrice Huertas DO) AICD discharge CAD (coronary artery disease) CHF (congestive heart failure) COPD (chronic obstructive pulmonary disease) Chronic renal failure Hypertension Pacemaker - Surgical History Surgical History: Surgical History (Last Reviewed 05/24/18 @ 12:15 by JACQUI Christensen) AICD (automatic cardioverter/defibrillator) present S/P CABG x 2 S/P CABG x 4 - Tobacco History Second Hand Smoke Exposure: Yes (He used to work at a bar) Tobacco Use In Past 30 Days: No Smoking Status: Former smoker - Alcohol History How Often Do You Have a Drink Containing Alcohol: Monthly or less - Substance Use History Substance History: No History of Abuse - Travel History Recent Travel in the [place] Within the Last 8 Weeks: No Recent Travel Out of the Country Within the Last 8 Weeks: No - Immunization History Tetanus Immunization: >5 Years Hx Influenza Vaccine This Season: Yes Medications and Allergies Active Medications: Active Medications Acetaminophen (Tylenol) 650 mg PO Q4H PRN PRN Reason: Temp > 100.4 Albuterol (Duoneb Neb (Prn)) 1 ampul NEB Q2HR NEB PRN PRN Reason: DYSPNEA Allopurinol (Zyloprim) 300 mg PO DAILY [facility] Aspirin (Ecotrin) 81 mg PO DAILY AN[facility]ON[facility] Clopidogrel Bisulfate (Plavix) 75 mg PO DAILY [facility] Heparin Sodium (Porcine) (Heparin Inj) 5,000 units SQ Q8HR [facility] Allergies Allergy/AdvReac Type Severity Reaction Status Date / Time oxycodone Allergy Severe RASH Verified 07/13/17 07:20 Sulfa (Sulfonamide Allergy Severe HIVES Verified 07/13/17 07:20 Antibiotics) lorazepam AdvReac Severe Confusion Verified 07/13/17 10:30 Home Medications Medication Instructions Recorded Confirmed Type Aspirin Low Dose 81 mg PO DAILY 05/24/18 05/24/18 History albuterol sulfate [ProAir HFA] 1 puff INHALATION Q6H PRN 05/24/18 05/24/18 History allopurinol 300 mg PO DAILY 05/24/18 05/24/18 History alprazolam [Xanax] 0.25 mg PO TID PRN 05/24/18 05/24/18 History amiodarone 200 mg PO DAILY 05/24/18 05/24/18 History atorvastatin 80 mg PO DAILY 05/24/18 05/24/18 History bumetanide 2 mg PO DAILY 05/24/18 05/24/18 History clopidogrel [Plavix] 75 mg PO DAILY 05/24/18 05/24/18 History fluticasone-vilanterol [Breo 1 inh INHALATION DAILY 05/24/18 05/24/18 History Ellipta] formoterol fumarate 12 mcg INHALATION PRN PRN 05/24/18 05/24/18 History ipratropium bromide 0.5 mg INHALATION Q8H PRN 05/24/18 05/24/18 History metolazone 5 mg PO DAILY 05/24/18 05/24/18 History nitroglycerin [Nitrostat] 0.4 mg SUBLINGUAL Q5-15M PRN 05/24/18 05/24/18 History potassium chloride 20 meq PO DAILY 05/24/18 05/24/18 History pregabalin [Lyrica] 50 mg PO TID 05/24/18 05/24/18 History ranitidine HCl 75 mg PO DAILY 05/24/18 05/24/18 History tamsulosin 0.4 mg PO BID 05/24/18 05/24/18 History tramadol 50 mg PO TID 05/24/18 05/24/18 History Exam Vital signs: Vital Signs 05/24/18 10:54 05/24/18 11:13 05/24/18 13:53 Temperature 97.5 F L Pulse Rate 80 76 68 Respiratory Rate 22 17 17 Blood Pressure 165/86 H 161/74 H 116/62 Pulse Oximetry 95 95 96 05/24/18 13:57 Temperature Pulse Rate Respiratory Rate 17 Blood Pressure Pulse Oximetry Intake & Output 05/23/18 05/24/18 05/24/18 18:59 06:59 18:59 Intake Total 500 / 500 Balance 500 / 500 Weight 105.687 kg Intake: IV 500 / 500 NS Inj 500 ML @ Wide Open IV. 500 / 500 SIG BOLUS ONE Rx#:[id number] Narrative: GENERAL: No distress. SKIN: Focused skin assessment warm/dry. HEAD: Atraumatic. Normocephalic. EYES: Pupils equal and round. No scleral icterus. No injection or drainage. ENT: No nasal bleeding or discharge. Mucous membranes pink and moist. Tongue is midline. No uvula deviation. NECK: Trachea midline. No JVD. CARDIOVASCULAR: Distant heart sounds. No murmur appreciated. RESPIRATORY: No accessory muscle use. Clear to auscultation. Breath sounds equal bilaterally. GASTROINTESTINAL: Abdomen soft, non-tender, nondistended. Hepatic and splenic margins not palpable. MUSCULOSKELETAL: No obvious deformities. No clubbing. No cyanosis. No edema. NEUROLOGICAL: Awake and alert. No obvious cranial nerve deficits. Motor grossly within normal limits. Normal speech. Results - Labs CBC & Chem 7: 05/24/18 11:53 05/24/18 11:53 Labs: Short CBC 05/24/18 Range/Units 11:53 WBC 7.9 (4.0-11.0) th/mm3 Hgb 15.3 (13.0-17.0) gm/dL Hct 46.4 (39.0-51.0) % Plt Count 179 (150-450) th/mm3 BMP 05/24/18 11:53 Sodium 140 Potassium 3.8 Chloride 98 Carbon Dioxide 36.2 H BUN 39 H Creatinine 1.82 H Calcium 9.0 Cardiac Enzymes 05/24/18 Range/Units 11:53 Total Creatine Kinase 61 (39-308) U/L Troponin I Less than 0.02 L (0.02-0.05) ng/mL - Imaging Impressions Chest X-Ray 05/24/18 11:17 CONCLUSION: No significant interval change in bilateral pulmonary parenchymal opacity. Head CT 05/24/18 11:28 CONCLUSION: 1. No acute intracranial abnormality. . Caprini VTE Risk Assessment Caprini VTE Risk Assessment: Moderate/High Risk (score >= 2) Caprini Risk Assessment Model: Point Value = 1 Point Value = 2 Point Value = 3 Point Value = 5 Age 41-60 Minor surgery BMI > 25 kg/m2 Swollen legs Varicose veins or History of unexplained or recurrent spontaneous Oral contraceptives or hormone replacement Sepsis (< 1 month) Serious lung disease, including pneumonia (< 1 month) Abnormal pulmonary function Acute myocardial infarction Congestive heart failure (< 1 month) History of inflammatory bowel disease Medical patient at bed rest Age 61-74 Arthroscopic surgery Major open surgery (> 45 min) Laparoscopic surgery (> 45 min) Malignancy Confined to bed (> 72 hours) Immobilizing plaster cast Central venous access Age >= 75 History of VTE Family history of VTE Factor V Leiden Prothrombin [id number] Lupus anticoagulant Anticardiolipin antibodies Elevated serum homocysteine Heparin-induced thrombocytopenia Other congenital or acquired thrombophilia Stroke (< 1 month) Elective arthroplasty Hip, pelvis, or leg fracture Acute spinal cord injury (< 1 month) Prophylaxis Regimen: Total Risk Factor Score Risk Level Prophylaxis Regimen 0-1 Low Early ambulation 2 Moderate Order ONE of the following: *Sequential Compression Device (SCD) *Heparin 5000 units SQ BID 3-4 Higher Order ONE of the following medications: *Heparin 5000 units SQ TID *Enoxaparin/Lovenox 40 mg SQ daily (WT < 150 kg, CrCl > 30 mL/min) *Enoxaparin/Lovenox 30 mg SQ daily (WT < 150 kg, CrCl > 10-29 mL/min) *Enoxaparin/Lovenox 30 mg SQ BID (WT < 150 kg, CrCl > 30 mL/min) AND/OR *Sequential Compression Device (SCD) 5 or more Highest Order ONE of the following medications: *Heparin 5000 units SQ TID (Preferred with Epidurals) *Enoxaparin/Lovenox 40 mg SQ daily (WT < 150 kg, CrCl > 30 mL/min) *Enoxaparin/Lovenox 30 mg SQ daily (WT < 150 kg, CrCl > 10-29 mL/min) *Enoxaparin/Lovenox 30 mg SQ BID (WT < 150 kg, CrCl > 30 mL/min) AND *Sequential Compression Device (SCD) Assessment and Plan - Plan CAD/ CHF/ AICD firing The pt has had four firings of his AICD over the past two weeks. In the ED, interrogation demonstrated a run of V fib. Cardiology was contacted. EKG with LBBB. -cardiology consult pending. -telemetry. -continue cardiac regimen. -trend trops. -pain control as needed. -hold diuretics for now. Syncope S/t above. -PT eval. Chronic renal failure Creatinine appears to be at baseline. -follow BMP and avoid nephrotoxins. -holding diuretics. COPD CXR without recent changes. -continue inhalers. -nebs as needed. -incentive spirometry. PPx: Heparin Code Status: Full
[2018-05-24] MEDS: Morphine Inj 4 MG/ML Vial IV.PUSH PRN ×2 (17:19→22:51)
[2018-05-24] MEDS: ALPRAZolam 0.25 MG Tablet PO PRN (17:19)
--- NOTE | 2018-05-24 19:04 | ECG ---
Date Performed: 05/24/2018 Time Performed: 11:12:40 PTAGE: 57 years EKG: Sinus rhythm WITH FIRST DEGREE AV BLOCK PAC WITH SOME ABERRANT CONDUCTION LEFT BUNDLE BRANCH BLOCK AXIS LEFTWARD THERE IS SLIGHT ST ELEVATION INFERIORLY SINCE PREVIOUS TRACING THE SLIGHT ST ELEVATION INFERIORLY IS NEW. Clinical correlation is recommended. ABNORMAL ECG PREVIOUS TRACING : 09/10/2017 17.55 DOCTOR: Mahad Bolivar Interpretating Date/Time 05/24/2018 19:03:33
[2018-05-24] MEDS: Famotidine 20 MG Tablet PO SCH (22:50)
[2018-05-24] MEDS: Pregabalin 25 MG Capsule PO SCH (22:50)
[2018-05-24] MEDS: Heparin - SQ 10,000 UNITS/ML Vial SQ SCH (22:51)
[2018-05-25 06:04] LABS: Baso # (Auto) 0.1 th/mm3 (0.0-0.2); Baso % (Auto) 0.8 % (0.0-2.0); Eos # (Auto) 0.1 th/mm3 (0.0-0.4); Eos % (Auto) 1.5 % (0.0-4.0); Hematocrit 42.3 % (39.0-51.0); Hemoglobin 13.9 gm/dL (13.0-17.0); Lymph % (Auto) 13.3 % (9.0-44.0); Mean Corpuscular HGB Conc 32.9 % (32.0-36.0); Mean Corpuscular Hemoglobin 29.5 pg (27.0-34.0); Mean Corpuscular Volume 89.6 fL (80.0-100.0); Mean Platelet Volume 8.8 fL (7.0-11.0); Mono # (Auto) 0.9 th/mm3 (0.0-0.9); Mono % (Auto) 12.1 % (0.0-8.0); Neut # (Auto) 5.4 th/mm3 (1.8-7.7); Neut % (Auto) 72.3 % (16.0-70.0); Platelet Count 162 th/mm3 (150-450); Red Blood Count 4.72 mil/mm3 (4.50-5.90); Red Cell Distribution Width 15.2 % (11.6-17.2); White Blood Count 7.5 th/mm3 (4.0-11.0)
[2018-05-25 06:11] LABS: Albumin 3.2 g/dL (3.4-5.0); Anion Gap 8 meq/L (5-15); Aspartate Aminotransferase 14 U/L (15-37); Blood Urea Nitrogen 37 mg/dL (7-18); Calcium 8.6 mg/dL (8.5-10.1); Carbon Dioxide 35.3 meq/L (21.0-32.0); Chloride 97 meq/L (98-107); Glomerular Filtration Rate 42 mL/min (>89); Glucose,Random 76 mg/dL (74-106); Potassium 3.6 meq/L (3.5-5.1); Sodium 140 meq/L (136-145)
[2018-05-25 06:14] LABS: Alanine Aminotransferase 18 U/L (12-78); Alkaline Phosphatase 68 U/L (45-117); Total Protein 6.8 g/dL (6.4-8.2)
[2018-05-25] MEDS: Heparin - SQ 10,000 UNITS/ML Vial SQ SCH ×3 (06:22→23:41)
[2018-05-25] MEDS: Morphine Inj 4 MG/ML Vial IV.PUSH PRN ×3 (07:21→17:40)
--- NOTE | 2018-05-25 08:38 | P.CONCA ---
<Ana Browning Gopi - Last Filed: 05/25/18 08:26> History of Present Illness Service: cardiology Consult date: 05/25/18 Reason for Consult: AICD firing Primary Care Provider: Dax Montana MD Chief Complaint: Pacemaker fired History of Present Illness: This is a pleasant 57 yo M with CAD, most recent cardiac cath in 09/2017 with BMS to Lcx, CABG, CHF, ischemic cardiomyopathy AICD in place (last EF 50-55% on 09/2017 echo), COPD and CKD who presents after implanted defibrillator fired yesterday. He reports feeling unwell the past several weeks with increased fatigue and decreased po intake without N/V/D. He states his device has actually fired multiple times in the past several weeks and feels a sense of dizziness and lightheadedness prior to firing; with yesterday's firing being the most intense. He has been in contact with our office to let us know of these firings and recent interrogations have shows frequent Vtach. He recently had an outpatient lexiscan on 05/22/18 showing large infarct pattern inferior and inferolaterally without ischemia. Device interrogation in ED showed Vfib. He is also followed by Dr. Brady/EP as an outpatient. Currently he is feeling well without chest pain, sob or palpitations. He denies any recent weight gain or orthopnea. Review of Systems All other systems reviewed negative except as stated in HPI PMFSH - History History Provided By: Patient - Medical History Medical History: Medical History (Last Updated 05/24/18 @ 15:58 by Patrice Huertas DO) AICD discharge CAD (coronary artery disease) CHF (congestive heart failure) COPD (chronic obstructive pulmonary disease) Chronic renal failure Hypertension Pacemaker - Surgical History Surgical History: Surgical History (Last Reviewed 05/24/18 @ 12:15 by JACQUI Christensen) AICD (automatic cardioverter/defibrillator) present S/P CABG x 2 S/P CABG x 4 - Tobacco History Second Hand Smoke Exposure: No Tobacco Use In Past 30 Days: No Smoking Status: Former smoker Tobacco Type: Cigarettes - Alcohol History How Often Do You Have a Drink Containing Alcohol: Never - Substance Use History Substance History: No History of Abuse - Travel History Recent Travel in the [place] Within the Last 8 Weeks: No Recent Travel Out of the Country Within the Last 8 Weeks: No - Immunization History Tetanus Immunization: >5 Years Hx Influenza Vaccine This Season: Yes Medications and Allergies Allergies Allergy/AdvReac Type Severity Reaction Status Date / Time oxycodone Allergy Severe RASH Verified 07/13/17 07:20 Sulfa (Sulfonamide Allergy Severe HIVES Verified 07/13/17 07:20 Antibiotics) lorazepam AdvReac Severe Confusion Verified 07/13/17 10:30 Home Medications Medication Instructions Recorded Confirmed Type Aspirin Low Dose 81 mg PO DAILY 05/24/18 05/24/18 History albuterol sulfate [ProAir HFA] 1 puff INHALATION Q6H PRN 05/24/18 05/24/18 History allopurinol 300 mg PO DAILY 05/24/18 05/24/18 History alprazolam [Xanax] 0.25 mg PO TID PRN 05/24/18 05/24/18 History amiodarone 200 mg PO DAILY 05/24/18 05/24/18 History atorvastatin 80 mg PO DAILY 05/24/18 05/24/18 History bumetanide 2 mg PO DAILY 05/24/18 05/24/18 History clopidogrel [Plavix] 75 mg PO DAILY 05/24/18 05/24/18 History fluticasone-vilanterol [Breo 1 inh INHALATION DAILY 05/24/18 05/24/18 History Ellipta] formoterol fumarate 12 mcg INHALATION PRN PRN 05/24/18 05/24/18 History ipratropium bromide 0.5 mg INHALATION Q8H PRN 05/24/18 05/24/18 History metolazone 5 mg PO DAILY 05/24/18 05/24/18 History nitroglycerin [Nitrostat] 0.4 mg SUBLINGUAL Q5-15M PRN 05/24/18 05/24/18 History potassium chloride 20 meq PO DAILY 05/24/18 05/24/18 History pregabalin [Lyrica] 50 mg PO TID 05/24/18 05/24/18 History ranitidine HCl 75 mg PO DAILY 05/24/18 05/24/18 History tamsulosin 0.4 mg PO BID 05/24/18 05/24/18 History tramadol 50 mg PO TID 05/24/18 05/24/18 History Active Medications: Active Medications Acetaminophen (Tylenol) 650 mg PO Q4H PRN PRN Reason: Temp > 100.4 Albuterol (Duoneb Neb (Prn)) 1 ampul NEB Q2HR NEB PRN PRN Reason: DYSPNEA Allopurinol (Zyloprim) 300 mg PO DAILY [facility] Alprazolam (Xanax) 0.25 mg PO TID PRN PRN Reason: Anxiety Last Admin: 05/24/18 17:19 Dose: 0.25 mg Amiodarone HCl (Cordarone) 200 mg PO DAILY [facility] Aspirin (Ecotrin) 81 mg PO DAILY [facility] Atorvastatin Calcium (Lipitor) 80 mg PO HS [facility] Clopidogrel Bisulfate (Plavix) 75 mg PO DAILY [facility] Famotidine (Pepcid) 10 mg PO BID [facility] Last Admin: 05/24/18 22:50 Dose: 10 mg Fluticasone/Vilanterol (Breo Ellipta 100/25 Mcg Inh) 1 puff INH DAILY [facility] Heparin Sodium (Porcine) (Heparin Inj) 5,000 units SQ Q8HR [facility] Last Admin: 05/25/18 06:22 Dose: 5,000 units Morphine Sulfate (Morphine Inj) 2 mg IV.PUSH Q4H PRN PRN Reason: BREAKTHROUGH PAIN Last Admin: 05/25/18 07:21 Dose: 2 mg Potassium Chloride (K-Dur) 20 meq PO DAILY [facility] Pregabalin (Lyrica) 50 mg PO TID [facility] Last Admin: 05/24/18 22:50 Dose: 50 mg Tamsulosin HCl (Flomax) 0.4 mg PO BID [facility] Last Admin: 05/24/18 22:50 Dose: 0.4 mg Tramadol HCl (Ultram) 50 mg PO TID PRN PRN Reason: pain 3-10 Last Admin: 05/25/18 06:22 Dose: 50 mg Exam Vital signs: Vital Signs 05/24/18 10:54 05/24/18 11:13 05/24/18 13:53 Temperature 97.5 F L Pulse Rate 80 76 68 Respiratory Rate 22 17 17 Blood Pressure 165/86 H 161/74 H 116/62 Pulse Oximetry 95 95 96 05/24/18 13:57 05/24/18 16:17 05/24/18 17:39 Temperature Pulse Rate 67 Respiratory Rate 17 17 17 Blood Pressure 130/81 Pulse Oximetry 96 05/24/18 19:19 05/24/18 20:00 05/24/18 21:00 Temperature 98.2 F Pulse Rate 62 62 60 Respiratory Rate 16 16 20 Blood Pressure 117/76 124/81 121/79 Pulse Oximetry 96 96 98 05/24/18 22:40 05/24/18 23:00 05/25/18 00:10 Temperature Pulse Rate 61 58 L 69 Respiratory Rate Blood Pressure Pulse Oximetry 05/25/18 00:12 05/25/18 01:00 05/25/18 02:00 Temperature Pulse Rate 58 L 58 L Respiratory Rate Blood Pressure Pulse Oximetry 96 05/25/18 03:07 05/25/18 04:00 05/25/18 04:05 Temperature Pulse Rate 64 61 62 Respiratory Rate 16 Blood Pressure 111/71 Pulse Oximetry 96 05/25/18 07:20 05/25/18 07:32 05/25/18 08:00 Temperature 97.9 F Pulse Rate 61 Respiratory Rate 16 16 18 Blood Pressure 114/71 Pulse Oximetry 96 Intake & Output 05/24/18 05/25/18 05/25/18 18:59 06:59 18:59 Intake Total 500 / 500 240 / 240 Balance 500 / 500 240 / 240 Weight 105.687 kg 105.6 kg Intake: IV 500 / 500 NS Inj 500 ML @ Wide Open IV. 500 / 500 SIG BOLUS ONE Rx#:[id number] Oral 240 / 240 Narrative: GENERAL: SKIN: Warm and dry. HEAD: Normocephalic. EYES: No scleral icterus. No injection or drainage. NECK: Supple, trachea midline. No JVD or lymphadenopathy. CARDIOVASCULAR: Regular rate and rhythm without murmurs, gallops, or rubs. RESPIRATORY: Breath sounds equal bilaterally. No accessory muscle use. GASTROINTESTINAL: Abdomen soft, non-tender, nondistended. MUSCULOSKELETAL: No cyanosis, or edema. Results 05/25/18 04:10 05/25/18 04:10 Cardiac Enzymes 05/24/18 05/24/18 05/24/18 Range/Units 11:53 11:53 16:23 AST (15-37) U/L Troponin I Less than 0.02 L Less than 0.02 L (0.02-0.05) ng/mL B-Natriuretic Peptide 44 (0-100) pg/mL 05/24/18 05/25/18 Range/Units 19:35 04:10 AST 14 L (15-37) U/L Troponin I 0.02 (0.02-0.05) ng/mL B-Natriuretic Peptide (0-100) pg/mL Coagulation 05/24/18 05/24/18 Range/Units 11:53 11:53 PT 10.7 (9.8-11.6) sec APTT 26.2 (24.3-30.1) sec B-Natriuretic Peptide 44 (0-100) pg/mL CBC 05/24/18 05/25/18 Range/Units 11:53 04:10 WBC 7.9 7.5 (4.0-11.0) th/mm3 RBC 5.29 4.72 (4.50-5.90) mil/mm3 Hgb 15.3 13.9 (13.0-17.0) gm/dL Hct 46.4 42.3 (39.0-51.0) % Plt Count 179 162 (150-450) th/mm3 Neut # (Auto) 6.5 5.4 (1.8-7.7) th/mm3 Lymph # (Auto) 0.6 L 1.0 (1.0-4.8) th/mm3 [place] # (Auto) 0.7 0.9 (0.0-0.9) th/mm3 Eos # (Auto) 0.0 0.1 (0.0-0.4) th/mm3 Baso # (Auto) 0.1 0.1 (0.0-0.2) th/mm3 Comprehensive Metabolic Panel 05/24/18 05/25/18 Range/Units 11:53 04:10 Sodium 140 140 (136-145) meq/L Potassium 3.8 3.6 (3.5-5.1) meq/L Chloride 98 97 L (98-107) meq/L Carbon Dioxide 36.2 H 35.3 H (21.0-32.0) meq/L BUN 39 H 37 H (7-18) mg/dL Creatinine 1.82 H 1.70 H (0.60-1.30) mg/dL Calcium 9.0 8.6 (8.5-10.1) mg/dL AST 14 L (15-37) U/L ALT 18 (12-78) U/L Alkaline Phosphatase 68 (45-117) U/L Total Protein 6.8 (6.4-8.2) g/dL Albumin 3.2 L (3.4-5.0) g/dL Intake and Output 05/24/18 05/25/18 05/25/18 22:59 06:59 14:59 Intake Total 240 / 240 Balance 240 / 240 Intake: Oral 240 / 240 Other: Weight 105.6 kg Assessment and Plan - Assessment (1) Defibrillator discharge Code(s): Z45.02 - Encounter for adjustment and management of automatic implantable cardiac defibrillator Status: Acute - Plan 57 yo M with CAD, most recent cardiac cath in 09/2017 with BMS to Lcx, CABG, CHF, ischemic cardiomyopathy AICD in place (last EF 50-55% on 09/2017 echo), COPD and CKD who presents after implanted defibrillator fired yesterday. He reports feeling unwell the past several weeks with increased fatigue and decreased po intake without N/V/D. He states his device has actually fired multiple times in the past several weeks and feels a sense of dizziness and lightheadedness prior to firing; with yesterday's firing being the most intense. He has been in contact with our office to let us know of these firings and recent interrogations have shows frequent Vtach. He recently had an outpatient lexiscan on 05/22/18 showing large infarct pattern inferior and inferolaterally without ischemia. Device interrogation in ED showed Vfib. He is also followed by Dr. Brady/EP as an outpatient. Currently he is feeling well without chest pain, sob or palpitations. He denies any recent weight gain or orthopnea Cardiomyopathy- hx of frequent Vtach with AICD in place. multiple device firings in the past few weeks, most recently fired yesterday. Interrogation in ED showed Vfib. electrolytes ok, BUN/creatinine elevated. patient admits to poor oral intake lately. recent lexiscan did not show ischemia. troponin x 3 negative EKG shows stable LBBB amiodarone 200mg daily will get updated echo to assess LV function (09/2017 showed EF 50-55%, no valvular issues) <Yobani Doan - Last Filed: 05/25/18 11:42> History of Present Illness Primary Care Provider: Dax Montana MD [facility] - Medical History Medical History: Medical History (Last Updated 05/24/18 @ 15:58 by Patrice Huertas DO) AICD discharge CAD (coronary artery disease) CHF (congestive heart failure) COPD (chronic obstructive pulmonary disease) Chronic renal failure Hypertension Pacemaker - Surgical History Surgical History: Surgical History (Last Reviewed 05/24/18 @ 12:15 by JACQUI Christensen) AICD (automatic cardioverter/defibrillator) present S/P CABG x 2 S/P CABG x 4 Medications and Allergies Active Medications: Active Medications Acetaminophen (Tylenol) 650 mg PO Q4H PRN PRN Reason: Temp > 100.4 Albuterol (Duoneb Neb (Prn)) 1 ampul NEB Q2HR NEB PRN PRN Reason: DYSPNEA Allopurinol (Zyloprim) 300 mg PO DAILY [facility] Last Admin: 05/25/18 08:45 Dose: 300 mg Alprazolam (Xanax) 0.25 mg PO TID PRN PRN Reason: Anxiety Last Admin: 05/24/18 17:19 Dose: 0.25 mg Amiodarone HCl (Cordarone) 200 mg PO DAILY [facility] Last Admin: 05/25/18 08:45 Dose: 200 mg Aspirin (Ecotrin) 81 mg PO DAILY [facility] Last Admin: 05/25/18 08:45 Dose: 81 mg Atorvastatin Calcium (Lipitor) 80 mg PO HS [facility] Last Admin: 05/25/18 09:20 Dose: 80 mg Clopidogrel Bisulfate (Plavix) 75 mg PO DAILY [facility] Last Admin: 05/25/18 08:46 Dose: 75 mg Famotidine (Pepcid) 10 mg PO BID [facility] Last Admin: 05/25/18 08:46 Dose: 10 mg Fluticasone/Vilanterol (Breo Ellipta 100/25 Mcg Inh) 1 puff INH DAILY [facility] Last Admin: 05/25/18 09:20 Dose: 1 puff Heparin Sodium (Porcine) (Heparin Inj) 5,000 units SQ Q8HR [facility] Last Admin: 05/25/18 06:22 Dose: 5,000 units Morphine Sulfate (Morphine Inj) 2 mg IV.PUSH Q4H PRN PRN Reason: BREAKTHROUGH PAIN Last Admin: 05/25/18 07:21 Dose: 2 mg Potassium Chloride (K-Dur) 20 meq PO DAILY [facility] Last Admin: 05/25/18 08:47 Dose: 20 meq Pregabalin (Lyrica) 50 mg PO TID [facility] Last Admin: 05/25/18 08:46 Dose: 50 mg Tamsulosin HCl (Flomax) 0.4 mg PO BID [facility] Last Admin: 05/25/18 08:46 Dose: 0.4 mg Tramadol HCl (Ultram) 50 mg PO TID PRN PRN Reason: pain 3-10 Last Admin: 05/25/18 06:22 Dose: 50 mg Exam Vital signs: Vital Signs 05/24/18 13:53 05/24/18 13:57 05/24/18 16:17 Temperature Pulse Rate 68 67 Respiratory Rate 17 17 17 Blood Pressure 116/62 130/81 Pulse Oximetry 96 96 05/24/18 17:39 05/24/18 19:19 05/24/18 20:00 Temperature 98.2 F Pulse Rate 62 62 Respiratory Rate 17 16 16 Blood Pressure 117/76 124/81 Pulse Oximetry 96 96 05/24/18 21:00 05/24/18 22:40 05/24/18 23:00 Temperature Pulse Rate 60 61 58 L Respiratory Rate 20 Blood Pressure 121/79 Pulse Oximetry 98 05/25/18 00:10 05/25/18 00:12 05/25/18 01:00 Temperature Pulse Rate 69 58 L Respiratory Rate Blood Pressure Pulse Oximetry 96 05/25/18 02:00 05/25/18 03:07 05/25/18 04:00 Temperature Pulse Rate 58 L 64 61 Respiratory Rate 16 Blood Pressure 111/71 Pulse Oximetry 96 05/25/18 04:05 05/25/18 07:00 05/25/18 07:20 Temperature Pulse Rate 62 61 Respiratory Rate 16 Blood Pressure Pulse Oximetry 05/25/18 07:32 05/25/18 08:00 05/25/18 08:40 Temperature 97.9 F Pulse Rate 60 Respiratory Rate 16 18 Blood Pressure 114/71 Pulse Oximetry 96 95 05/25/18 09:00 05/25/18 10:00 05/25/18 11:00 Temperature Pulse Rate 58 L 60 72 Respiratory Rate Blood Pressure Pulse Oximetry Intake & Output 05/24/18 05/25/18 05/25/18 18:59 06:59 18:59 Intake Total 500 / 500 240 / 240 Balance 500 / 500 240 / 240 Weight 105.687 kg 105.6 kg Intake: IV 500 / 500 NS Inj 500 ML @ Wide Open IV. 500 / 500 SIG BOLUS ONE Rx#:[id number] Oral 240 / 240 Results 05/25/18 04:10 05/25/18 04:10 Cardiac Enzymes 05/24/18 05/24/18 05/24/18 Range/Units 11:53 11:53 16:23 AST (15-37) U/L Troponin I Less than 0.02 L Less than 0.02 L (0.02-0.05) ng/mL B-Natriuretic Peptide 44 (0-100) pg/mL 05/24/18 05/25/18 Range/Units 19:35 04:10 AST 14 L (15-37) U/L Troponin I 0.02 (0.02-0.05) ng/mL B-Natriuretic Peptide (0-100) pg/mL Coagulation 05/24/18 05/24/18 Range/Units 11:53 11:53 PT 10.7 (9.8-11.6) sec APTT 26.2 (24.3-30.1) sec B-Natriuretic Peptide 44 (0-100) pg/mL CBC 05/24/18 05/25/18 Range/Units 11:53 04:10 WBC 7.9 7.5 (4.0-11.0) th/mm3 RBC 5.29 4.72 (4.50-5.90) mil/mm3 Hgb 15.3 13.9 (13.0-17.0) gm/dL Hct 46.4 42.3 (39.0-51.0) % Plt Count 179 162 (150-450) th/mm3 Neut # (Auto) 6.5 5.4 (1.8-7.7) th/mm3 Lymph # (Auto) 0.6 L 1.0 (1.0-4.8) th/mm3 [place] # (Auto) 0.7 0.9 (0.0-0.9) th/mm3 Eos # (Auto) 0.0 0.1 (0.0-0.4) th/mm3 Baso # (Auto) 0.1 0.1 (0.0-0.2) th/mm3 Comprehensive Metabolic Panel 05/24/18 05/25/18 Range/Units 11:53 04:10 Sodium 140 140 (136-145) meq/L Potassium 3.8 3.6 (3.5-5.1) meq/L Chloride 98 97 L (98-107) meq/L Carbon Dioxide 36.2 H 35.3 H (21.0-32.0) meq/L BUN 39 H 37 H (7-18) mg/dL Creatinine 1.82 H 1.70 H (0.60-1.30) mg/dL Calcium 9.0 8.6 (8.5-10.1) mg/dL AST 14 L (15-37) U/L ALT 18 (12-78) U/L Alkaline Phosphatase 68 (45-117) U/L Total Protein 6.8 (6.4-8.2) g/dL Albumin 3.2 L (3.4-5.0) g/dL Intake and Output 05/24/18 05/25/18 05/25/18 22:59 06:59 14:59 Intake Total 240 / 240 Balance 240 / 240 Intake: Oral 240 / 240 Other: Weight 105.6 kg Assessment and Plan - Assessment (1) Defibrillator discharge Code(s): Z45.02 - Encounter for adjustment and management of automatic implantable cardiac defibrillator Status: Acute - Attending Attestation VFib - s/p AICD defibrillation x 4 in past 2 days. on amio 200 daily. recent lexiscan with large scar and no significant ischemia. cont bb patient follows with dr. brady [place]. will consult EP for further recommendations. amio load vs EPS NPO p MN
[2018-05-25] MEDS: Amiodarone 200 MG Tablet PO SCH (08:45)
[2018-05-25] MEDS: Allopurinol 300 MG Tablet PO SCH (08:45)
[2018-05-25] MEDS: Pregabalin 25 MG Capsule PO SCH ×3 (08:46→17:40)
[2018-05-25] MEDS: Famotidine 20 MG Tablet PO SCH ×2 (08:46→23:41)
--- NOTE | 2018-05-25 13:20 | P.PNIM ---
Subjective Interval history: Patient reports he is feeling ok. No further AICD firing. No shortness of breath. Has same pain from when the AICD fired. DW his Marjorie, RN at bedside. Physical Exam Vital signs: Vital Signs 05/24/18 13:53 05/24/18 13:57 05/24/18 16:17 Temperature Pulse Rate 68 67 Respiratory Rate 17 17 17 Blood Pressure 116/62 130/81 Pulse Oximetry 96 96 05/24/18 17:39 05/24/18 19:19 05/24/18 20:00 Temperature 98.2 F Pulse Rate 62 62 Respiratory Rate 17 16 16 Blood Pressure 117/76 124/81 Pulse Oximetry 96 96 05/24/18 21:00 05/24/18 22:40 05/24/18 23:00 Temperature Pulse Rate 60 61 58 L Respiratory Rate 20 Blood Pressure 121/79 Pulse Oximetry 98 05/25/18 00:10 05/25/18 00:12 05/25/18 01:00 Temperature Pulse Rate 69 58 L Respiratory Rate Blood Pressure Pulse Oximetry 96 05/25/18 02:00 05/25/18 03:07 05/25/18 04:00 Temperature Pulse Rate 58 L 64 61 Respiratory Rate 16 Blood Pressure 111/71 Pulse Oximetry 96 05/25/18 04:05 05/25/18 07:00 05/25/18 07:20 Temperature Pulse Rate 62 61 Respiratory Rate 16 Blood Pressure Pulse Oximetry 05/25/18 07:32 05/25/18 08:00 05/25/18 08:40 Temperature 97.9 F Pulse Rate 60 Respiratory Rate 16 18 Blood Pressure 114/71 Pulse Oximetry 96 95 05/25/18 09:00 05/25/18 10:00 05/25/18 11:00 Temperature Pulse Rate 58 L 60 72 Respiratory Rate Blood Pressure Pulse Oximetry Intake & Output 05/24/18 05/25/18 05/25/18 18:59 06:59 18:59 Intake Total 500 / 500 240 / 240 Balance 500 / 500 240 / 240 Weight 105.687 kg 105.6 kg Intake: IV 500 / 500 NS Inj 500 ML @ Wide Open IV. 500 / 500 SIG BOLUS ONE Rx#:[id number] Oral 240 / 240 Narrative: GENERAL: This is a well-nourished, well-developed patient, in no apparent distress. CARDIOVASCULAR: Normal rate and regular rhythm without murmurs, gallops, or rubs. RESPIRATORY: Good respiratory efforts. Breath sounds equal and clear to auscultation bilaterally. GASTROINTESTINAL: Abdomen soft, non-tender, non-distended. Normal active bowel sounds MUSCULOSKELETAL: Extremities without cyanosis, or edema. NEURO: Alert & Oriented x4 to person, place, time, situation. Moves all ext x4 PSYCH: Appropriate mood and affect. Results - Labs CBC & Chem 7: 05/25/18 04:10 05/25/18 04:10 Laboratory Results - last 24 hr 05/24/18 05/24/18 05/25/18 16:23 19:35 04:10 WBC 7.5 RBC 4.72 Hgb 13.9 Hct 42.3 MCV 89.6 MCH 29.5 MCHC 32.9 RDW 15.2 Plt Count 162 MPV 8.8 Neut % (Auto) 72.3 H Lymph % (Auto) 13.3 [place] % (Auto) 12.1 H Eos % (Auto) 1.5 Baso % (Auto) 0.8 Neut # (Auto) 5.4 Lymph # (Auto) 1.0 [place] # (Auto) 0.9 Eos # (Auto) 0.1 Baso # (Auto) 0.1 WBC Differential . Differential Comment Auto diff final Sodium Potassium Chloride Carbon Dioxide Anion Gap BUN Creatinine Estimated GFR Random Glucose Calcium Total Bilirubin AST ALT Alkaline Phosphatase Troponin I Less than 0.02 L 0.02 Total Protein Albumin 05/25/18 04:10 WBC RBC Hgb Hct MCV MCH MCHC RDW Plt Count MPV Neut % (Auto) Lymph % (Auto) [place] % (Auto) Eos % (Auto) Baso % (Auto) Neut # (Auto) Lymph # (Auto) [place] # (Auto) Eos # (Auto) Baso # (Auto) WBC Differential Differential Comment Sodium 140 Potassium 3.6 Chloride 97 L Carbon Dioxide 35.3 H Anion Gap 8 BUN 37 H Creatinine 1.70 H Estimated GFR 42 L Random Glucose 76 Calcium 8.6 Total Bilirubin 0.3 AST 14 L ALT 18 Alkaline Phosphatase 68 Troponin I Total Protein 6.8 Albumin 3.2 L Assessment and Plan - Plan 57 Y/O male with: CAD/ CHF/ AICD firing The pt has had four firings of his AICD over the past two weeks. In the ED, interrogation demonstrated a run of V fib. Cardiology following. EKG with LBBB. -cardiology following. 2D echo ordered. -continue cardiac regimen. Amiodarone daily -hold diuretics for now. - Possible Amio load vs EP study in AM. Syncope S/t above. -PT eval. Chronic renal failure Creatinine appears to be at baseline. -follow BMP and avoid nephrotoxins. -holding diuretics. COPD CXR without recent changes. -continue inhalers. -nebs as needed. -incentive spirometry. PPx: Heparin
[2018-05-26] MEDS: Morphine Inj 4 MG/ML Vial IV.PUSH PRN ×3 (03:58→23:24)
--- NOTE | 2018-05-26 08:30 | P.PNCA ---
<Shubham Chinchilla - Last Filed: 05/26/18 08:24> Subjective Interval history: Patient with chest soreness from recent defibrillator fires. Patient gets lightheaded and passes out prior to episodes of defibrillator discharge. No further episodes since admission. Telemetry reviewed with occasional monomorphic single PVCs. Physical Exam Vital signs: Vital Signs 05/25/18 08:40 05/25/18 09:00 05/25/18 10:00 Temperature Pulse Rate 58 L 60 Respiratory Rate Blood Pressure Pulse Oximetry 95 05/25/18 11:00 05/25/18 12:00 05/25/18 13:00 Temperature 97.8 F Pulse Rate 63 60 72 Respiratory Rate 18 Blood Pressure 120/70 Pulse Oximetry 96 05/25/18 14:00 05/25/18 15:00 05/25/18 15:44 Temperature Pulse Rate 58 L 58 L Respiratory Rate Blood Pressure Pulse Oximetry 96 05/25/18 16:00 05/25/18 17:00 05/25/18 18:00 Temperature 97.7 F Pulse Rate 60 58 L 60 Respiratory Rate 18 Blood Pressure 115/64 Pulse Oximetry 93 L 05/25/18 19:00 05/25/18 19:43 05/25/18 20:00 Temperature Pulse Rate 58 L 59 L Respiratory Rate 16 Blood Pressure Pulse Oximetry 05/25/18 21:00 05/25/18 22:00 05/25/18 23:00 Temperature Pulse Rate 58 L 60 82 Respiratory Rate Blood Pressure Pulse Oximetry 05/25/18 23:32 05/26/18 01:00 05/26/18 02:00 Temperature Pulse Rate 156 H 60 58 L Respiratory Rate 16 Blood Pressure 108/70 Pulse Oximetry 97 05/26/18 03:00 05/26/18 03:59 05/26/18 04:00 Temperature Pulse Rate 60 76 64 Respiratory Rate 18 Blood Pressure 117/78 Pulse Oximetry 94 L 05/26/18 05:00 05/26/18 06:00 05/26/18 07:26 Temperature 97.7 F Pulse Rate 68 66 63 Respiratory Rate 18 Blood Pressure 121/76 Pulse Oximetry 94 L Intake & Output 05/25/18 05/26/18 05/26/18 18:59 06:59 18:59 Intake Total 1400 / 1400 240 / 240 Output Total 500 / 500 525 / 525 Balance 900 / 900 -285 / -285 Weight 251 lb 15.814 oz Intake: Oral 1400 / 1400 240 / 240 Output: Urine 500 / 500 525 / 525 Narrative: GENERAL: Well-developed well-nourished. In no acute distress. NECK: No carotid bruits. No JVD. CARDIOVASCULAR: Regular rate and rhythm. No murmur appreciated. RESPIRATORY: No accessory muscle use. Clear to auscultation. Breath sounds equal bilaterally. MUSCULOSKELETAL: No clubbing or cyanosis. No edema. NEUROLOGICAL: Awake and alert. Normal speech. Assessment and Plan - Assessment (1) Defibrillator discharge Code(s): Z45.02 - Encounter for adjustment and management of automatic implantable cardiac defibrillator Status: Acute - Plan 57 yo M with CAD, most recent cardiac cath in 09/2017 with BMS to Lcx, CABG, CHF, ischemic cardiomyopathy AICD in place (last EF 50-55% on 09/2017 echo), COPD and CKD who presents after implanted defibrillator fired yesterday. He reports feeling unwell the past several weeks with increased fatigue and decreased po intake without N/V/D. He states his device has actually fired multiple times in the past several weeks and feels a sense of dizziness and lightheadedness prior to firing; with yesterday's firing being the most intense. He has been in contact with our office to let us know of these firings and recent interrogations have shows frequent Vtach. He recently had an outpatient lexiscan on 05/22/18 showing large infarct pattern inferior and inferolaterally without ischemia. Device interrogation in ED showed Vfib. He is also followed by Dr. Grider/[facility] as an outpatient. Currently he is feeling well without chest pain, sob or palpitations. He denies any recent weight gain or orthopnea VFib - s/p AICD defibrillation x 4 in past 2 days. on amio 200 daily. recent lexiscan with large scar and no significant ischemia. cont bb. Check updated echo. patient follows with Dr. Grider as outpatient for EP, consulted for further recommendations. amio load vs EPS? Discussed Condition With: Patient seen and examined with Dr. Irvin <Bryce Irvin - Last Filed: 05/26/18 08:39> Physical Exam Vital signs: Vital Signs 05/25/18 08:40 05/25/18 09:00 05/25/18 10:00 Temperature Pulse Rate 58 L 60 Respiratory Rate Blood Pressure Pulse Oximetry 95 05/25/18 11:00 05/25/18 12:00 05/25/18 13:00 Temperature 97.8 F Pulse Rate 63 60 72 Respiratory Rate 18 Blood Pressure 120/70 Pulse Oximetry 96 05/25/18 14:00 05/25/18 15:00 05/25/18 15:44 Temperature Pulse Rate 58 L 58 L Respiratory Rate Blood Pressure Pulse Oximetry 96 05/25/18 16:00 05/25/18 17:00 05/25/18 18:00 Temperature 97.7 F Pulse Rate 60 58 L 60 Respiratory Rate 18 Blood Pressure 115/64 Pulse Oximetry 93 L 05/25/18 19:00 05/25/18 19:43 05/25/18 20:00 Temperature Pulse Rate 58 L 59 L Respiratory Rate 16 Blood Pressure Pulse Oximetry 05/25/18 21:00 05/25/18 22:00 05/25/18 23:00 Temperature Pulse Rate 58 L 60 82 Respiratory Rate Blood Pressure Pulse Oximetry 05/25/18 23:32 05/26/18 01:00 05/26/18 02:00 Temperature Pulse Rate 156 H 60 58 L Respiratory Rate 16 Blood Pressure 108/70 Pulse Oximetry 97 05/26/18 03:00 05/26/18 03:59 05/26/18 04:00 Temperature Pulse Rate 60 76 64 Respiratory Rate 18 Blood Pressure 117/78 Pulse Oximetry 94 L 05/26/18 05:00 05/26/18 06:00 05/26/18 07:26 Temperature 97.7 F Pulse Rate 68 66 63 Respiratory Rate 18 Blood Pressure 121/76 Pulse Oximetry 94 L Intake & Output 05/25/18 05/26/18 05/26/18 18:59 06:59 18:59 Intake Total 1400 / 1400 240 / 240 Output Total 500 / 500 525 / 525 Balance 900 / 900 -285 / -285 Weight 114.3 kg Intake: Oral 1400 / 1400 240 / 240 Output: Urine 500 / 500 525 / 525 Assessment and Plan - Plan Patient seen and examined. Agree with above. VF s/p successful defibrillation currently on amiodarone 200mg daily, hesitant to increase dose as he is already having side effects with cataracts and baseline pulmonary issues. COPD is diagnosed, howevere with reported only 8 yr smoking history... ? pulmonary fibrosis. Dr Grider asked to see today for assistance. Isolated monomorphic PVCs on tele. ? PVC ablation vs EPS. Will defer management to Dr Grider. If decided no adequate treatment options remain, given recurrent VF , evaluation at tertiary facility capable for heart transplant evaluation is an option that will be considered.
[2018-05-26] MEDS: Heparin - SQ 10,000 UNITS/ML Vial SQ SCH ×3 (08:42→21:25)
[2018-05-26] MEDS: Amiodarone 200 MG Tablet PO SCH (09:43)
[2018-05-26] MEDS: Allopurinol 300 MG Tablet PO SCH (09:43)
[2018-05-26] MEDS: Famotidine 20 MG Tablet PO SCH ×2 (09:43→21:23)
[2018-05-26] MEDS: Pregabalin 25 MG Capsule PO SCH ×3 (09:44→17:12)
--- NOTE | 2018-05-26 13:07 | P.PNIM ---
Subjective Interval history: Patient reports he is feeling okay today. No further AICD firing that he can tell. Physical Exam Vital signs: Vital Signs 05/25/18 14:00 05/25/18 15:00 05/25/18 15:44 Temperature Pulse Rate 58 L 58 L Respiratory Rate Blood Pressure Pulse Oximetry 96 05/25/18 16:00 05/25/18 17:00 05/25/18 18:00 Temperature 97.7 F Pulse Rate 60 58 L 60 Respiratory Rate 18 Blood Pressure 115/64 Pulse Oximetry 93 L 05/25/18 19:00 05/25/18 19:43 05/25/18 20:00 Temperature Pulse Rate 58 L 59 L Respiratory Rate 16 Blood Pressure Pulse Oximetry 05/25/18 21:00 05/25/18 22:00 05/25/18 23:00 Temperature Pulse Rate 58 L 60 82 Respiratory Rate Blood Pressure Pulse Oximetry 05/25/18 23:32 05/26/18 01:00 05/26/18 02:00 Temperature Pulse Rate 156 H 60 58 L Respiratory Rate 16 Blood Pressure 108/70 Pulse Oximetry 97 05/26/18 03:00 05/26/18 03:59 05/26/18 04:00 Temperature Pulse Rate 60 76 64 Respiratory Rate 18 Blood Pressure 117/78 Pulse Oximetry 94 L 05/26/18 05:00 05/26/18 06:00 05/26/18 07:00 Temperature Pulse Rate 68 66 63 Respiratory Rate Blood Pressure Pulse Oximetry 05/26/18 07:26 05/26/18 08:00 05/26/18 09:00 Temperature 97.7 F Pulse Rate 63 62 106 H Respiratory Rate 18 Blood Pressure 121/76 Pulse Oximetry 94 L 05/26/18 10:39 05/26/18 10:58 05/26/18 11:00 Temperature Pulse Rate 68 60 Respiratory Rate Blood Pressure Pulse Oximetry 97 05/26/18 11:02 05/26/18 12:00 05/26/18 13:00 Temperature 97.7 F Pulse Rate 72 61 93 H Respiratory Rate 20 Blood Pressure 135/76 Pulse Oximetry 95 Intake & Output 05/25/18 05/26/18 05/26/18 18:59 06:59 18:59 Intake Total 1400 / 1400 240 / 240 Output Total 500 / 500 525 / 525 Balance 900 / 900 -285 / -285 Weight 114.3 kg Intake: Oral 1400 / 1400 240 / 240 Output: Urine 500 / 500 525 / 525 Other: Date of Last Bowel Movement 05/25/18 Narrative: GENERAL: This is a well-nourished, well-developed patient, in no apparent distress. CARDIOVASCULAR: Normal rate and regular rhythm without murmurs, gallops, or rubs. RESPIRATORY: Good respiratory efforts. Breath sounds equal and clear to auscultation bilaterally. GASTROINTESTINAL: Abdomen soft, non-tender, non-distended. Normal active bowel sounds MUSCULOSKELETAL: Extremities without cyanosis, or edema. NEURO: Alert & Oriented x4 to person, place, time, situation. Moves all ext x4 PSYCH: Appropriate mood and affect. Results - Labs CBC & Chem 7: 05/25/18 04:10 05/25/18 04:10 Assessment and Plan - Plan 57 Y/O male with: CAD/ CHF/ AICD firing The pt has had four firings of his AICD over the past two weeks. In the ED, interrogation demonstrated a run of V fib. Cardiology following. EKG with LBBB. -cardiology following. 2D echo ordered. -continue cardiac regimen. Amiodarone daily -Diuretics on hold for now. -EP Dr. Grider consulted to evaluate. Syncope S/t above. -PT eval. Chronic renal failure Creatinine appears to be at baseline. -follow BMP and avoid nephrotoxins. -holding diuretics. COPD CXR without recent changes. -continue inhalers. -nebs as needed. -incentive spirometry. PPx: Heparin
--- NOTE | 2018-05-26 16:14 | ECHRPT ---
Indication: CARDIOMYOPATHY CONCLUSIONS Moderately dilated left ventricle. Mild concentric left ventricular hypertrophy. The left ventricular systolic function is severely reduced with an estimated ejection fraction in th e range of 25-30%. Trace mitral valve regurgitation. Aortic valve sclerosis is present. There is trace tricuspid valve regurgitation. The estimated pulmonary arterial pressure is 43 mmHg. BP: / HR: Rhythm: Sinus MEASUREMENTS (Male / Female) Normal Values Technical Quality:Fair 2D ECHO LV Diastolic Diameter PLAX 7.1 cm 4.2 - 5.9 / 3.9 - 5.3 cm LV Systolic Diameter PLAX 6.4 cm IVS Diastolic Thickness 1.4 cm 0.6 - 1.0 / 0.6 - 0.9 cm LVPW Diastolic Thickness 1.1 cm 0.6 - 1.0 / 0.6 - 0.9 cm LV Relative Wall Thickness 0.3 RV Internal Dim ED PLAX 3.4 cm LVOT Diameter 2.3 cm Aortic Root Diameter 4.1 cm LA Systolic Diameter LX 4.6 cm 3.0 - 4.0 / 2.7 - 3.8 cm M-MODE AV Cusp Separation MM 2.3 cm DOPPLER AV Peak Velocity 120.0 cm/s AV Peak Gradient 5.8 mmHg AV Mean Gradient 3.0 mmHg AV Velocity Time Integral 23.9 cm LVOT Peak Velocity 63.2 cm/s LVOT Peak Gradient 1.6 mmHg LVOT Velocity Time Integral 12.4 cm AV Area Cont Eq vti 2.2 cm AV Area Cont Eq pk 2.2 cm Mitral E Point Velocity 56.8 cm/s Mitral A Point Velocity 61.7 cm/s Mitral E to A Ratio 0.9 LV E' Septal Velocity 3.4 cm/s Mitral E to LV E' Septal Ratio 16.7 TR Peak Velocity 289.0 cm/s TR Peak Gradient 33.4 mmHg Right Atrial Pressure 10.0 mmHg Pulmonary Artery Systolic Pressu 43.4 mmHg Right Ventricular Systolic Press 43.4 mmHg PV Peak Velocity 78.2 cm/s PV Peak Gradient 2.4 mmHg FINDINGS LEFT VENTRICLE Moderately dilated left ventricle. Mild concentric left ventricular hypertrophy. The left ventricular systolic function is severely reduced with an estimated ejection fraction in th e range of 25-30%. RIGHT VENTRICLE Normal right ventricular size and systolic function. LEFT ATRIUM The left atrial size is normal. RIGHT ATRIUM The right atrial size is normal. ATRIAL SEPTUM The interatrial septum not well visualized. AORTA The aortic root and proximal ascending aorta are not well visualized. MITRAL VALVE Trace mitral valve regurgitation. AORTIC VALVE Aortic valve sclerosis is present. TRICUSPID VALVE There is trace tricuspid valve regurgitation. The estimated pulmonary arterial pressure is 43.4 mmHg. PULMONARY VALVE The pulmonary valve is not well visualized. VESSELS The inferior vena cava was not well visualized. PERICARDIUM No pericardial effusion. Carline Cobb MD, FACC (Electronically Signed) Final Date:26 May 2018 16:13
[2018-05-26] MEDS: ALPRAZolam 0.25 MG Tablet PO PRN (23:42)
[2018-05-27] MEDS: Morphine Inj 4 MG/ML Vial IV.PUSH PRN ×4 (04:16→23:35)
[2018-05-27] MEDS: Heparin - SQ 10,000 UNITS/ML Vial SQ SCH ×3 (05:41→23:35)
--- NOTE | 2018-05-27 08:12 | P.PNCA ---
<Shubham Chinchilla - Last Filed: 05/27/18 08:06> Subjective Interval history: Patient seen with at bedside. Patient went to sleep at 10 PM last night and woke up at 11 with a start, feels like he might have been shocked. The patient states he would cancel his trip and have ablation if it could be done this week. He states he was previously evaluated for heart transplant at [facility] , but then had CABG there and EF improved so he was taken off the list. Physical Exam Vital signs: Vital Signs 05/26/18 09:00 05/26/18 10:39 05/26/18 10:58 Temperature Pulse Rate 106 H 68 60 Respiratory Rate Blood Pressure Pulse Oximetry 05/26/18 11:00 05/26/18 11:02 05/26/18 12:00 Temperature 97.7 F Pulse Rate 72 61 Respiratory Rate 20 Blood Pressure 135/76 Pulse Oximetry 97 95 05/26/18 13:00 05/26/18 14:00 05/26/18 15:00 Temperature Pulse Rate 93 H 95 H 61 Respiratory Rate Blood Pressure Pulse Oximetry 05/26/18 15:39 05/26/18 16:00 05/26/18 17:00 Temperature 97.8 F Pulse Rate 65 58 L 60 Respiratory Rate 18 Blood Pressure 132/80 Pulse Oximetry 96 05/26/18 18:00 05/26/18 19:00 05/26/18 20:00 Temperature Pulse Rate 62 62 68 Respiratory Rate Blood Pressure Pulse Oximetry 05/26/18 20:12 05/26/18 21:00 05/26/18 22:00 Temperature 98.0 F Pulse Rate 66 58 L 58 L Respiratory Rate 20 19 Blood Pressure 139/77 Pulse Oximetry 97 05/26/18 23:00 05/26/18 23:30 05/27/18 00:00 Temperature 98.1 F Pulse Rate 60 60 Respiratory Rate 19 20 Blood Pressure 133/83 Pulse Oximetry 97 05/27/18 01:00 05/27/18 01:52 05/27/18 02:00 Temperature Pulse Rate 60 60 Respiratory Rate Blood Pressure Pulse Oximetry 94 L 05/27/18 03:00 05/27/18 04:00 05/27/18 04:25 Temperature 98.2 F Pulse Rate 65 84 72 Respiratory Rate 18 Blood Pressure 123/69 Pulse Oximetry 98 05/27/18 05:00 08/21/18 06:00 Temperature Pulse Rate 64 58 L Respiratory Rate Blood Pressure Pulse Oximetry Intake & Output 05/26/18 05/27/18 05/27/18 18:59 06:59 18:59 Intake Total 1580 / 1580 650 / 650 Output Total 680 / 680 650 / 650 Balance 900 / 900 0 / 0 Weight 248 lb 14.43 oz Intake: Oral 1580 / 1580 650 / 650 Output: Urine 680 / 680 650 / 650 Other: Date of Last Bowel Movement 05/25/18 05/26/18 Narrative: GENERAL: Well-developed well-nourished. In no acute distress. NECK: No carotid bruits. No JVD. CARDIOVASCULAR: Regular rate and rhythm. No murmur appreciated. RESPIRATORY: No accessory muscle use. Clear to auscultation. Breath sounds equal bilaterally. MUSCULOSKELETAL: No clubbing or cyanosis. No edema. NEUROLOGICAL: Awake and alert. Normal speech. Assessment and Plan - Assessment (1) Defibrillator discharge Code(s): Z45.02 - Encounter for adjustment and management of automatic implantable cardiac defibrillator Status: Acute - Plan 57-year-old male with past medical history of severe ischemic cardiomyopathy who presented after VF s/p successful defibrillation Lexiscan last week with large scar and no ischemia currently on amiodarone 200mg daily, hesitant to increase dose as he is already having side effects with cataracts and baseline pulmonary issues. COPD is diagnosed, however with reported only 8 yr smoking history... ? pulmonary fibrosis. EP, Dr Grider, consulted, recommends ablation and possible upgrade to Bi-V AICD. Re-evaluation at tertiary facility capable for heart transplant evaluation is an option. Discussed Condition With: Patient with at bedside, Dr. Irvin <Bryce Irvin - Last Filed: 05/27/18 08:20> Physical Exam Vital signs: Vital Signs 05/26/18 09:00 05/26/18 10:39 05/26/18 10:58 Temperature Pulse Rate 106 H 68 60 Respiratory Rate Blood Pressure Pulse Oximetry 05/26/18 11:00 05/26/18 11:02 05/26/18 12:00 Temperature 97.7 F Pulse Rate 72 61 Respiratory Rate 20 Blood Pressure 135/76 Pulse Oximetry 97 95 05/26/18 13:00 05/26/18 14:00 05/26/18 15:00 Temperature Pulse Rate 93 H 95 H 61 Respiratory Rate Blood Pressure Pulse Oximetry 05/26/18 15:39 05/26/18 16:00 05/26/18 17:00 Temperature 97.8 F Pulse Rate 65 58 L 60 Respiratory Rate 18 Blood Pressure 132/80 Pulse Oximetry 96 05/26/18 18:00 05/26/18 19:00 05/26/18 20:00 Temperature Pulse Rate 62 62 68 Respiratory Rate Blood Pressure Pulse Oximetry 05/26/18 20:12 05/26/18 21:00 05/26/18 22:00 Temperature 98.0 F Pulse Rate 66 58 L 58 L Respiratory Rate 20 19 Blood Pressure 139/77 Pulse Oximetry 97 05/26/18 23:00 05/26/18 23:30 05/27/18 00:00 Temperature 98.1 F Pulse Rate 60 60 Respiratory Rate 19 20 Blood Pressure 133/83 Pulse Oximetry 97 05/27/18 01:00 05/27/18 01:52 05/27/18 02:00 Temperature Pulse Rate 60 60 Respiratory Rate Blood Pressure Pulse Oximetry 94 L 05/27/18 03:00 05/27/18 04:00 05/27/18 04:25 Temperature 98.2 F Pulse Rate 65 84 72 Respiratory Rate 18 Blood Pressure 123/69 Pulse Oximetry 98 05/27/18 05:00 05/27/18 06:00 Temperature Pulse Rate 64 58 L Respiratory Rate Blood Pressure Pulse Oximetry Intake & Output 05/26/18 05/27/18 05/27/18 18:59 06:59 18:59 Intake Total 1580 / 1580 650 / 650 Output Total 680 / 680 650 / 650 Balance 900 / 900 0 / 0 Weight 112.9 kg Intake: Oral 1580 / 1580 650 / 650 Output: Urine 680 / 680 650 / 650 Other: Date of Last Bowel Movement 05/25/18 05/26/18 Assessment and Plan - Plan Patient seen and examined. Agree with above. Appreciate Dr Grider's input. Echo shows EF 25-30% and is offered repeat VT ablation with BiVICD upgrade. Patient was unsure of timing but is now amenable this hospitalization. Notified Dr Grider.
[2018-05-27] MEDS: Famotidine 20 MG Tablet PO SCH ×2 (08:37→20:41)
[2018-05-27] MEDS: Allopurinol 300 MG Tablet PO SCH (08:38)
[2018-05-27] MEDS: Amiodarone 200 MG Tablet PO SCH (08:38)
[2018-05-27] MEDS: Pregabalin 25 MG Capsule PO SCH ×3 (08:38→18:43)
[2018-05-27 09:11] LABS: Carbon Dioxide 35.4 meq/L (21.0-32.0); Potassium 4.4 meq/L (3.5-5.1)
--- NOTE | 2018-05-27 10:45 | P.PNIM ---
Subjective Interval history: Patient reports he is feeling tired. He believes his AICD might have fired last night. Physical Exam Vital signs: Vital Signs 05/26/18 10:58 05/26/18 11:00 05/26/18 11:02 Temperature 97.7 F Pulse Rate 60 72 Respiratory Rate 20 Blood Pressure 135/76 Pulse Oximetry 97 95 05/26/18 12:00 05/26/18 13:00 05/26/18 14:00 Temperature Pulse Rate 61 93 H 95 H Respiratory Rate Blood Pressure Pulse Oximetry 05/26/18 15:00 05/26/18 15:39 05/26/18 16:00 Temperature 97.8 F Pulse Rate 61 65 58 L Respiratory Rate 18 Blood Pressure 132/80 Pulse Oximetry 96 05/26/18 17:00 05/26/18 18:00 05/26/18 19:00 Temperature Pulse Rate 60 62 62 Respiratory Rate Blood Pressure Pulse Oximetry 05/26/18 20:00 05/26/18 20:12 05/26/18 21:00 Temperature 98.0 F Pulse Rate 68 66 58 L Respiratory Rate 20 Blood Pressure 139/77 Pulse Oximetry 97 05/26/18 22:00 05/26/18 23:00 05/26/18 23:30 Temperature Pulse Rate 58 L 60 Respiratory Rate 19 19 Blood Pressure Pulse Oximetry 05/27/18 00:00 05/27/18 01:00 05/27/18 01:52 Temperature 98.1 F Pulse Rate 60 60 Respiratory Rate 20 Blood Pressure 133/83 Pulse Oximetry 97 94 L 05/27/18 02:00 05/27/18 03:00 05/27/18 04:00 Temperature Pulse Rate 60 65 84 Respiratory Rate Blood Pressure Pulse Oximetry 05/27/18 04:25 05/27/18 05:00 05/27/18 06:00 Temperature 98.2 F Pulse Rate 72 64 58 L Respiratory Rate 18 Blood Pressure 123/69 Pulse Oximetry 98 05/27/18 08:00 Temperature 97.7 F Pulse Rate 63 Respiratory Rate 20 Blood Pressure 113/70 Pulse Oximetry 93 L Intake & Output 05/26/18 05/27/18 05/27/18 18:59 06:59 18:59 Intake Total 1580 / 1580 650 / 650 Output Total 680 / 680 650 / 650 Balance 900 / 900 0 / 0 Weight 112.9 kg Intake: Oral 1580 / 1580 650 / 650 Output: Urine 680 / 680 650 / 650 Other: Date of Last Bowel Movement 05/25/18 05/26/18 Narrative: GENERAL: Patient is in no acute distress. CARDIOVASCULAR: Regular rate and rhythm. No murmur appreciated. RESPIRATORY: No accessory muscle use. Clear to auscultation. Breath sounds equal bilaterally. MUSCULOSKELETAL: No clubbing or cyanosis. No edema. NEUROLOGICAL: Awake and alert. Normal speech. Results - Labs CBC & Chem 7: 05/25/18 04:10 05/27/18 07:10 Laboratory Results - last 24 hr 05/27/18 07:10 Sodium 140 Potassium 4.4 Chloride 100 Carbon Dioxide 35.4 H Anion Gap 5 BUN 25 H Creatinine 1.36 H Estimated GFR 54 L Random Glucose 72 L Calcium 9.0 Assessment and Plan - Plan 57 Y/O male with: CAD/ CHF/ AICD firing The pt has had four firings of his AICD over the past two weeks. In the ED, interrogation demonstrated a run of V fib. Cardiology following. EKG with LBBB. -cardiology following. 2D echo shows LVEF of 25-30% -continue cardiac regimen. Amiodarone daily -Diuretics on hold for now given borderline renal functions. -EP Dr. Grider following. Plan for AICD replacement today and ablation tomorrow. Syncope S/t above. -PT eval. Chronic renal failure Creatinine appears to be at baseline. -follow BMP and avoid nephrotoxins. -holding diuretics. Will need to resume soon as patient reports he is starting to feel increased abdominal fluid. COPD CXR without recent changes. -continue inhalers. -nebs as needed. -incentive spirometry. PPx: Heparin
[2018-05-27] MEDS: ALPRAZolam 0.25 MG Tablet PO PRN (20:50)
[2018-05-28] MEDS: Morphine Inj 4 MG/ML Vial IV.PUSH PRN ×3 (04:11→14:47)
[2018-05-28] MEDS: Heparin - SQ 10,000 UNITS/ML Vial SQ SCH ×2 (06:20→13:15)
[2018-05-28 06:51] LABS: Calcium 8.4 mg/dL (8.5-10.1); Carbon Dioxide 32.9 meq/L (21.0-32.0); Potassium 4.1 meq/L (3.5-5.1)
--- NOTE | 2018-05-28 07:39 | P.PNCA ---
Subjective Interval history: The patient is doing well with no new complaints. Telemetry unremarkable overnight. Tentative plan is for ablation this evening and defibrillator upgrade tomorrow. Physical Exam Vital signs: Vital Signs 05/27/18 08:00 05/27/18 09:00 05/27/18 10:00 Temperature 97.7 F Pulse Rate 63 64 70 Respiratory Rate 20 Blood Pressure 113/70 Pulse Oximetry 93 L 05/27/18 11:00 05/27/18 12:00 05/27/18 13:00 Temperature Pulse Rate 84 58 L 64 Respiratory Rate Blood Pressure Pulse Oximetry 05/27/18 14:00 05/27/18 15:00 05/27/18 16:00 Temperature 98.8 F Pulse Rate 60 64 60 Respiratory Rate 20 Blood Pressure 110/68 Pulse Oximetry 99 05/27/18 17:00 05/27/18 17:03 05/27/18 18:00 Temperature Pulse Rate 74 70 Respiratory Rate Blood Pressure Pulse Oximetry 99 05/27/18 18:57 05/27/18 19:00 05/27/18 20:00 Temperature 98.1 F Pulse Rate 69 61 70 Respiratory Rate 18 18 Blood Pressure 126/80 Pulse Oximetry 96 05/27/18 21:00 05/27/18 22:00 05/27/18 23:00 Temperature Pulse Rate 68 64 60 Respiratory Rate Blood Pressure Pulse Oximetry 05/28/18 00:00 05/28/18 00:50 05/28/18 01:00 Temperature 98.3 F Pulse Rate 72 72 Respiratory Rate 18 18 Blood Pressure 133/66 Pulse Oximetry 97 05/28/18 02:00 05/28/18 03:00 05/28/18 04:00 Temperature 98.0 F Pulse Rate 66 63 66 Respiratory Rate 16 Blood Pressure 113/78 Pulse Oximetry 96 05/28/18 05:00 05/28/18 05:31 05/28/18 06:00 Temperature Pulse Rate 72 72 Respiratory Rate 16 Blood Pressure Pulse Oximetry 05/28/18 07:00 Temperature Pulse Rate 64 Respiratory Rate Blood Pressure Pulse Oximetry Intake & Output 05/27/18 05/28/18 05/28/18 18:59 06:59 18:59 Intake Total 900 / 900 240 / 240 Output Total 750 / 750 1250 / 1250 Balance 150 / 150 -1010 / -1010 Weight 252 lb 13.923 oz Intake: Oral 900 / 900 240 / 240 Output: Urine 750 / 750 1250 / 1250 Other: Date of Last Bowel Movement 05/26/18 Narrative: GENERAL: Well-developed well-nourished. In no acute distress. NECK: No carotid bruits. No JVD. CARDIOVASCULAR: Regular rate and rhythm. No murmur appreciated. RESPIRATORY: No accessory muscle use. Clear to auscultation. Breath sounds equal bilaterally. MUSCULOSKELETAL: No clubbing or cyanosis. No edema. NEUROLOGICAL: Awake and alert. Normal speech. Assessment and Plan - Assessment (1) Defibrillator discharge Code(s): Z45.02 - Encounter for adjustment and management of automatic implantable cardiac defibrillator Status: Acute - Plan 57-year-old male with past medical history of severe ischemic cardiomyopathy who presented after VF s/p successful defibrillation Lexiscan last week with large scar and no ischemia Echo shows EF remains 2530% Currently on amiodarone 200mg daily, hesitant to increase dose as he is already having side effects with cataracts and baseline pulmonary issues. COPD is diagnosed, however with reported only 8 yr smoking history... ? pulmonary fibrosis. EP, Dr Grider, consulted, recommends ablation and upgrade to Bi-V AICD. Discussed Condition With: Patient, RN, Dr. Irvin
[2018-05-28] MEDS: Amiodarone 200 MG Tablet PO SCH (08:30)
[2018-05-28] MEDS: Allopurinol 300 MG Tablet PO SCH (08:31)
[2018-05-28] MEDS: Pregabalin 25 MG Capsule PO SCH ×3 (08:31→17:23)
[2018-05-28] MEDS: ALPRAZolam 0.25 MG Tablet PO PRN ×2 (08:32→14:48)
[2018-05-28] MEDS: Famotidine 20 MG Tablet PO SCH ×2 (08:33→22:43)
--- NOTE | 2018-05-28 10:07 | P.PNIM ---
Subjective Interval history: Patient reports feeling fatigued today. Procedure was rescheduled for today. He will have ablation later today with plan for pacemaker replacement tomorrow. Physical Exam Vital signs: Vital Signs 05/27/18 11:00 05/27/18 12:00 05/27/18 13:00 Temperature Pulse Rate 84 58 L 64 Respiratory Rate Blood Pressure Pulse Oximetry 05/27/18 14:00 05/27/18 15:00 05/27/18 16:00 Temperature 98.8 F Pulse Rate 60 64 60 Respiratory Rate 20 Blood Pressure 110/68 Pulse Oximetry 99 05/27/18 17:00 05/27/18 17:03 05/27/18 18:00 Temperature Pulse Rate 74 70 Respiratory Rate Blood Pressure Pulse Oximetry 99 05/27/18 18:57 05/27/18 19:00 05/27/18 20:00 Temperature 98.1 F Pulse Rate 69 61 70 Respiratory Rate 18 18 Blood Pressure 126/80 Pulse Oximetry 96 05/27/18 21:00 05/27/18 22:00 05/27/18 23:00 Temperature Pulse Rate 68 64 60 Respiratory Rate Blood Pressure Pulse Oximetry 05/28/18 00:00 05/28/18 00:50 05/28/18 01:00 Temperature 98.3 F Pulse Rate 72 72 Respiratory Rate 18 18 Blood Pressure 133/66 Pulse Oximetry 97 05/28/18 02:00 05/28/18 03:00 05/28/18 04:00 Temperature 98.0 F Pulse Rate 66 63 66 Respiratory Rate 16 Blood Pressure 113/78 Pulse Oximetry 96 05/28/18 05:00 05/28/18 05:31 05/28/18 06:00 Temperature Pulse Rate 72 72 Respiratory Rate 16 Blood Pressure Pulse Oximetry 05/28/18 07:00 05/28/18 08:00 05/28/18 09:24 Temperature Pulse Rate 64 87 Respiratory Rate 16 Blood Pressure Pulse Oximetry Intake & Output 05/27/18 05/28/18 05/28/18 18:59 06:59 18:59 Intake Total 900 / 900 240 / 240 Output Total 750 / 750 1250 / 1250 Balance 150 / 150 -1010 / -1010 Weight 114.7 kg Intake: Oral 900 / 900 240 / 240 Output: Urine 750 / 750 1250 / 1250 Other: Date of Last Bowel Movement 05/26/18 Narrative: GENERAL: Obese male in no acute distress. NECK: No carotid bruits. No JVD. CARDIOVASCULAR: Regular rate and rhythm. No murmur appreciated. RESPIRATORY: No accessory muscle use. Clear to auscultation. Breath sounds diminished at the bases bilaterally. MUSCULOSKELETAL: No clubbing or cyanosis. No edema. NEUROLOGICAL: Awake and alert. Normal speech. Results - Labs CBC & Chem 7: 05/25/18 04:10 05/28/18 05:42 Laboratory Results - last 24 hr 05/28/18 05:42 Sodium 141 Potassium 4.1 Chloride 101 Carbon Dioxide 32.9 H Anion Gap 7 BUN 27 H Creatinine 1.64 H Estimated GFR 43 L Random Glucose 89 Calcium 8.4 L Assessment and Plan - Plan 57 Y/O male with: CAD/ CHF/ AICD firing The pt has had four firings of his AICD over the past two weeks. In the ED, interrogation demonstrated a run of V fib. Cardiology following. EKG with LBBB. -cardiology following. 2D echo shows LVEF of 25-30% -continue cardiac regimen. Amiodarone daily -Diuretics on hold for now given borderline renal functions. -EP Dr. Grider following. Plan for ablation today and AICD replacement tomorrow. Syncope S/t above. -PT eval. Chronic renal failure Creatinine appears to be at baseline. -follow BMP and avoid nephrotoxins. -holding diuretics. Will need to resume soon as patient reports he is starting to feel increased abdominal fluid. He was given 1 dose yesterday of Bumex but his renal function worsened again. Will hold Bumex today. Plan to resume after all procedures done. COPD CXR without recent changes. -continue inhalers. -nebs as needed. -incentive spirometry. PPx: Heparin
[2018-05-28] MEDS ORDERED: Phenylephrine/NS 1000 MCG/10ML Syringe IV.PUSH ONE (12:00)
[2018-05-28] MEDS ORDERED: Glycopyrrolate Inj 1 MG/5 ML Syringe IV.PUSH ONE (12:00)
[2018-05-28] MEDS ORDERED: Neostigmine Inj 5 MG/5 ML Syringe IV.PUSH ONE (12:00)
[2018-05-28] MEDS ORDERED: Heparin 10,000 UNITS/10 ML Vial (for IV use) ONE (17:13)
[2018-05-28] MEDS ORDERED: ISOPROTERENOL IV.CONT ONE (17:13)
[2018-05-28] MEDS ORDERED: fentaNYL Citrate Inj 100 MCG/2 ML Ampul ONE (17:44)
[2018-05-28] MEDS ORDERED: Protamine Sulfate Inj 50 MG/5 ML Vial ONE (19:51)
[2018-05-28] MEDS ORDERED: Sugammadex Inj 200 MG/2 ML Vial IV.PUSH ONE (20:02)
--- NOTE | 2018-05-28 20:21 | CATHPROC ---
[facility] HIS Report Study Information Study Number Admission Scheduled Start Study Start [id number] May 24 2018 3:32PM 05/28/2018 May 28 2018 6:35PM [facility] Cardiac Catheterization Admit Source Facility Department Other [facility] - Tank Wagon Operator Physician and Clinical Staff Initial Neli Carvajal Spinning Lathe Operator Hydraulic Martha Severino,RT(R) TECH2 Other Anesthesia, BACK TENDER Recorder Yeimi Mcclelland,RN Recorder Katty Reid RN Scrub Mere Huertas,ETHICS MANAGER TECH2 Procedures Performed Procedure Location (Site) Vessel Name Ablation Procedure Cardioversion ICE CATHETER INSERT RA Atruim RF Ablation Isthmus Other Equipment Time Seed Corn Manager Production Description Size Mfg Part Number Used/Scraped BIOSENSE WALTERS CATHETER, THERMOCOOL NON- [id number] 19:07 Used INC. JAZ TC D-F *[id number] 20:00 CARDIVA MEDICAL VASCADE, FR5 CLOSURE SYSTEM FR 5 Used *[id number] 20:00 [employer]ICAL VASCADE, FR6 CLOSURE SYSTEM FR 6\7 Used *[id number] 20:00 C[employer]ICAL VASCADE, FR6 CLOSURE SYSTEM FR 6\7 Used *[phone] 20:00 CARD[employer]A MEDICAL VASCADE, FR6 CLOSURE SYSTEM FR 6\7 Used *[phone] 20:07 CARDIVA MEDICAL VASCADE, FR6 CLOSURE SYSTEM FR 6\7 Used *[id number] [phone] 20:00 CARD[employer]A MEDICAL VASCADE, FR6 CLOSURE SYSTEM FR 6\7 Used *[id number] 18:45 CORDIS/PACER SHEATH, FR10 JAKE 11CM FR 10 Used *[id number] 18:42 [employer]Trip BLANKET,WARM AIR CCL * Used *[id number] 18:42 [employer] PACK, CCL CUSTOM * Used *[id number] 18:42 MEDLINE PACER SMITH, LIMB * 2530 *[id number] Used [id number] 18:42 [employer] MED[employer] CATHETER, JSN, QUAD FR 5 Used *[id number] 18:43 [employer] K[employer] MEDICAL CATHETER, JSN, QUAD FR 5 Used *[id number] 18:43 [employer] K[employer] MEDICAL CATHETER, JSN, QUAD FR 5 Used *[id number] 18:42 [employer] KISHA MEDICAL ELECTRODE KIT, JAZ X SURFACE * Used *[id number] 18:44 [employer] SHEATH, EPS, FR5 FAST CATH FR 5 Used *[id number] 18:44 [employer] K[employer] MEDICAL SHEATH, EPS, FR6 FAST CATH FR 6 Used *[id number] [id number] 18:44 [employer] K[employer] MEDICAL SHEATH, EPS, FR6 FAST CATH FR 6 Used *[id number] 18:44 [employer] K[employer] MEDICAL SHEATH, EPS, FR7 FAST CATH FR 7 [id number] Used [id number] 18:58 [employer] K[employer] MEDICAL SHEATH, EPS, FR8 FAST CATH FR 8 Used *[id number] CATHETER, ACUNAV FR10 ICE [id number] 19:08 SMAM FR 10 Used (SAMM) *[id number] [facility] PAD, ELECTROSURGICAL 18:42 * [id number] *[id number] Used SURGICAL GROUNDING (BLUE) Labs Hgb (g/dl) Hct (%) WBC (l/cumm) Platelets (thousands) 11.60-17.00 35.00-51.00 4.00-11.00 150.00-450.00 13.9 42.3 7.5 162 Glucose (mg/dl) BUN (mg/dl) Creatinine (mg/dl) BUN:Creatinine (1:x) 74.00-106.00 7.00-18.00 0.50-1.30 10.00-20.00 89 27 1.6 16.9 Na (meq/l) K (meq/l) 136.00-145.00 3.50-5.10 141 4.1 INR (PTT:PT) 0.90-1.10 1.1 CPK-MB (ng/ML) 0.50-3.60 Not Drawn Medication Medication Total Dose (Bolus/Oral) Medication Total Dosage/Unit 1% XYLOCAINE 40 mL HEPARIN 7000 units PROTAMINE 20 mg Medications (Bolus/Oral) Medication Time Given Dosage/Unit Administered By Reason 1% XYLOCAINE 05/28/2018 6:48:26 PM 20 mL Neli Grider 20 mL 1% XYLOCAINE given in lab by Neli Grider in Left Groin via Subcutaneous. 1% XYLOCAINE 05/28/2018 6:53:11 PM 20 mL Neli Grider 20 mL 1% XYLOCAINE given in lab by Neli Grider in Right Groin via Subcutaneous. HEPARIN 05/28/2018 7:07:50 PM 5000 units Neli Grider 5000 units HEPARIN given in lab by Neli Grider via Peripheral IV. HEPARIN 05/28/2018 7:28:19 PM 2000 units Anesthesia, BACK TENDER As per physicians ve rbal order 2000 units HEPARIN given in lab by Anesthesia, BACK TENDER via Peripheral IV. Ordered by Neli Grider. Reas on: As per physicians verbal order. PROTAMINE 05/28/2018 7:52:04 PM 20 mg Anesthesia, BACK TENDER As per physicians verb al order 20 mg PROTAMINE given in lab by Anesthesia, BACK TENDER via Peripheral IV. Ordered by Neli Grider. Reason: As per physicians verbal order. Initial Case Assessment Cardiovascular NIBP 148/78 Final Case Assessment Cardiovascular HR Rhythm NIBP Chest Pain 82 SR 137/80 0 Edema Present Skin color Skin None Normal Warm Dry Circulatory - Right Pulses Dorsalis Pedis 1 Scale (0,1,2,3,4,d) Circulatory - Left Pulses Dorsalis Pedis 1 Scale (0,1,2,3,4,d) Circulatory - Lower Extremities Color Lower Right Color Lower Left Normal Normal Neurological State Drowsy Moves all extremities Respiration - General Respiration Rate SpO2 (%) O2 (lpm) (B/min) 18 94 15 Comment: NRM Chronological Log Time Study Chronological Log 18:00:00 Patient arrived via Bed. 18:00:00 Patient Name, D.O.B, / Armband Verified By R.N. 18:00:25 Anesthesia at bedside. Assumes care of patient. see records for all meds and vitals during procedure 18:20:00 A # 20 IV was noted in the Forearm (left). Grade = 0 18:21:00 Patient Warmer Placed on the Table. 18:22:00 Disposable Defibrillator Pads Placed On Patient. 18:22:00 Louis Prominences Protected 18:30:00 History and physical on the chart or being dictated. 18:36:04 dr. pete and micheal present for intubation 18:38:29 Pre-op and post- op instructions given; patient acknowledges understanding of instructions. 18:38:32 Verbal Stimulation=2 Physical Stimulation=2 Airway=2 Respiration=2 TOTAL=8. (0=absent, 1=li mited, 2=present) 18:39:48 Patient has been NPO for More than 6Hrs. 0830 05/28 18:39:58 Skin Breakdown- SCATTERED BRUISES ON ABDOMEN FROM BLOOD THINNER Time Out. Correct patient, procedure, procedure equipment, site and side verified with physicia n present. Time 18:48:18 concurred by MD, individual staff and BACK TENDER. Time Out #2 - Consents verified, patient in correct position, all results are labled and displa yed, safety precautions 18:48:22 taken, antibiotics administered. Time out concurred by MD, individual staff and BACK TENDER in procedu re 18:48:23 Case Start 18:48:26 20 mL 1% XYLOCAINE given in lab by Neli Grider in Left Groin via Subcutaneous. 18:52:23 Vascular access was obtained in the Fem Vein (left). 18:52:24 Vascular access was obtained in the Fem Vein (left). 18:52:25 Vascular access was obtained in the Fem Vein (left). 18:52:25 Vascular access was obtained in the Fem Art (left). 18:52:27 A SHEATH, EPS, FR5 FAST CATH FR 5 was advanced into the Fem Art (left) using the Modified S eldinger technique. 18:52:40 A SHEATH, EPS, FR6 FAST CATH FR 6 was advanced into the Fem Vein (left) using the Modified Seldinger technique. 18:52:46 A SHEATH, EPS, FR7 FAST CATH FR 7 was advanced into the Fem Vein (left) using the Modified Seldinger technique. 18:52:49 A SHEATH, FR10 JAKE 11CM FR 10 was advanced into the Fem Vein (left) using the Modified S eldinger technique. 18:53:11 20 mL 1% XYLOCAINE given in lab by Neli Grider in Right Groin via Subcutaneous. 18:56:59 Vascular access was obtained in the Fem Vein (right). 18:57:01 Vascular access was obtained in the Fem Art (right). 18:57:13 A SHEATH, EPS, FR8 FAST CATH FR 8 was advanced into the Fem Art (right) using the Modified Seldinger technique. 18:57:37 A SHEATH, EPS, FR6 FAST CATH FR 6 was advanced into the Fem Art (right) using the Modified Seldinger technique. A CATHETER, JSN, QUAD FR 5 was advanced vis Fem Vein (right) and placed in the CS. Placement wa s visually 18:58:36 confirmed under fluoroscopy. A CATHETER, JSN, QUAD FR 5 was advanced vis Fem Vein (left) and placed in the HIS. Placement wa s visually 18:59:22 confirmed under fluoroscopy. A CATHETER, JSN, QUAD FR 5 was advanced vis Fem Vein (left) and placed in the HRA. Placement wa s visually 18:59:30 confirmed under fluoroscopy. 19:06:28 Assessment: Initial Case, NSRO=049/78 mmhg 19:07:50 5000 units HEPARIN given in lab by Neli Grider via Peripheral IV. 19:08:08 CATHETER, ACUNAV FR10 ICE (Active Optical MEMS) FR 10 Was Postioned. A CATHETER, THERMOCOOL NON-JAZ TC D-F was advanced vis Groin (right) and placed in the LV. Plac ement was 19:09:45 visually confirmed under fluoroscopy. 19:12:43 RF Ablation of the Isthmus with a CATHETER, THERMOCOOL NON-JAZ TC D-F. 19:15:53 ABLATION IN PROGRESS 19:25:14 Activated Clotting Time Drawn 19:25:45 PACU called. Spoke to FLAKO 19:27:23 MM IN. SH OUT. 2000 units HEPARIN given in lab by Anesthesia, BACK TENDER via Peripheral IV. Ordered by Neli Grider . Reason: As per 19:28:19 physicians verbal order. 19:31:36 ECG rhythm of VT noted. Patient cardioverted at 200 joules. Success SYNCH 19:34:16 EPS IN PROGRESS. :34:43 Activated Clotting Time Drawn 19:40:58 ACT (Normal Range 90-180) = 247 19:50:54 SR NOTED 20 mg PROTAMINE given in lab by Anesthesia, BACK TENDER via Peripheral IV. Ordered by Neli Grider. R hillary: As per 19:52:04 physicians verbal order. 20:00:07 VASCADE, FR5 CLOSURE SYSTEM FR 5 placement in the Fem Art (left) 20:01:21 VASCADE, FR6 CLOSURE SYSTEM FR 6\7 placement in the Fem Vein (left) 20:01:40 VASCADE, FR6 CLOSURE SYSTEM FR 6\7 placement in the Fem Vein (left) 20:02:00 VASCADE, FR6 CLOSURE SYSTEM FR 6\7 placement in the Fem Vein (left) 20:02:56 VASCADE, FR6 CLOSURE SYSTEM FR 6\7 placement in the Fem Vein (right) 20:06:34 Activated Clotting Time Drawn 20:07:00 VASCADE, FR6 CLOSURE SYSTEM FR 6\7 placement in the Fem Art (right) 20:08:39 ACT (Normal Range 90-180) = 169 20:11:00 Case End (Physician broke scrub) 20:11:45 No case complications noted. 20:11:46 Cine recording checked. 20:17:59 Sterile dressing applied to sites. SITES WNL Assessment: Final Case, HR=82 BPM, Rhythm=SR, VZBG=898/80 mmhg, Chest Pain=0, Edema=None, Color =Normal, Skin = Warm, Dry Right Pulses: Reynaldo Ped=1 Left Pulses: Reynaldo Ped=1 20:18:20 Lower Right Extremities: Color=Normal Lower Left Extremities: Color=Normal Neurological: State=Drowsy, OLSON Respiration: Resp=18 B/min, SpO2=94 %, O2=15 lpm, Comment=NRM 20:19:07 PACU called. Spoke to ISAIAS 20:19:19 Bedside Report will be given. 20:19:23 Defibrillator and ground pads removed. Skin intact. 20:21:04 Ablation procedure performed: VT. 20:21:08 EP Procedure was performed. 20:25:25 Patient moved to stretcher. PT TO PACU W BACK TENDER, O2, MONITOR. End Study - Contrast Media Used In Study Contrast Total Opened (mL) Total Used (mL) Total Wasted (mL) Omnipaque 0 0 0 End Study - Maximum Contrast Load Max Contrast Load (mL) 358.4 End Study - Radiation Exposure Fluoro Time (minutes) 13.7 End Study - Sheaths Sheaths Pulled By Sheath Hold Time (min) Mere Huertas 15 End Study - Patient Disposition Complications Transferred To Interventional Outcome No Telemetry Bed successful
[2018-05-28] MEDS ORDERED: *morphine SULFATE 10 MG/ML PERIprocedure ONLY ONE (20:50)
[2018-05-29 00:07] LABS: Bacteria,Urine Rare /hpf; Bilirubin,Urine Negative (Negative); Clarity,Urine Clear (Clear); Color,Urine Yellow (Yellw/Straw); Glucose,Urine (UA) Negative (Negative); Leukocyte Esterase,Urine Negative (Negative); Nitrite,Urine Negative (Negative); Specific Gravity,Urine 1.014 (1.002-1.035); Sperm,Urine Rare /hpf
[2018-05-29] MEDS: Heparin - SQ 10,000 UNITS/ML Vial SQ SCH ×4 (02:05→22:28)
[2018-05-29] MEDS: Morphine Inj 4 MG/ML Vial IV.PUSH PRN ×2 (03:10→21:41)
--- NOTE | 2018-05-29 08:02 | P.PNCA ---
Subjective Interval history: Patient seen and examined. Had successful VT ablation yesterday. Plan for BiVICD upgrade today. No events on tele overnight. Denies cp, palpitations. Some dyspnea over night. Physical Exam Vital signs: Vital Signs 05/28/18 08:00 05/28/18 09:00 05/28/18 09:24 Temperature 98.0 F Pulse Rate 61 63 Respiratory Rate 16 16 Blood Pressure 126/70 Pulse Oximetry 95 05/28/18 10:00 05/28/18 11:00 05/28/18 11:44 Temperature Pulse Rate 67 74 Respiratory Rate Blood Pressure Pulse Oximetry 96 05/28/18 12:00 05/28/18 12:05 05/28/18 13:00 Temperature 98.1 F Pulse Rate 66 61 Respiratory Rate 16 20 Blood Pressure 113/68 Pulse Oximetry 92 L 05/28/18 14:00 05/28/18 15:00 05/28/18 16:00 Temperature 97.1 F L Pulse Rate 78 64 59 L Respiratory Rate 12 Blood Pressure 122/76 Pulse Oximetry 96 05/28/18 17:00 05/28/18 20:39 05/28/18 20:45 Temperature 97.4 F L Pulse Rate 72 79 79 Respiratory Rate 11 L 17 Blood Pressure 134/84 131/67 Pulse Oximetry 100 95 05/28/18 21:00 05/28/18 22:00 05/28/18 23:00 Temperature 97.4 F L 98.0 F Pulse Rate 74 69 66 Respiratory Rate 13 16 Blood Pressure 130/67 124/78 Pulse Oximetry 95 98 05/29/18 00:00 05/29/18 01:00 05/29/18 02:00 Temperature 98.2 F Pulse Rate 64 72 61 Respiratory Rate 16 Blood Pressure 119/68 Pulse Oximetry 100 05/29/18 03:00 05/29/18 04:00 05/29/18 05:00 Temperature 98.2 F Pulse Rate 74 72 74 Respiratory Rate 14 Blood Pressure 117/75 Pulse Oximetry 96 05/29/18 06:00 05/29/18 06:56 Temperature Pulse Rate 79 Respiratory Rate 14 Blood Pressure Pulse Oximetry Intake & Output 05/28/18 05/29/18 05/29/18 18:59 06:59 18:59 Intake Total 120 / 120 240 / 240 Output Total 750 / 750 500 / 500 Balance -630 / -630 -260 / -260 Weight 114.3 kg Intake: Oral 120 / 120 240 / 240 Output: Urine 750 / 750 500 / 500 Other: Date of Last Bowel Movement 05/26/18 Narrative: GENERAL: Obese male in no acute distress. NECK: No carotid bruits. No JVD. CARDIOVASCULAR: Regular rate and rhythm. No murmur appreciated. VASCULAR: right femoral access site CDI, no hematoma, good pulse RESPIRATORY: No accessory muscle use. Clear to auscultation. Breath sounds diminished at the bases bilaterally. MUSCULOSKELETAL: No clubbing or cyanosis. No edema. NEUROLOGICAL: Awake and alert. Normal speech. Assessment and Plan - Plan 57-year-old male with a severe ischemic cardiomyopathy EF 25-30% admitted after s/p successful defibrillation with VT/VF. Lexiscan last week with large scar and no ischemia Echo shows EF remains 2530% Currently on amiodarone 200mg daily, hesitant to increase dose as he is already having side effects with cataracts and baseline pulmonary issues. COPD is diagnosed, however with reported only 8 yr smoking history... ? pulmonary fibrosis. EP, Dr Grider, performed VT ablation yesterday and plan for Bi-V AICD upgrade today.
[2018-05-29] MEDS: Famotidine 20 MG Tablet PO SCH ×2 (09:59→21:37)
[2018-05-29] MEDS: Allopurinol 300 MG Tablet PO SCH (09:59)
[2018-05-29] MEDS: Amiodarone 200 MG Tablet PO SCH (10:00)
[2018-05-29] MEDS: Pregabalin 25 MG Capsule PO SCH ×2 (10:00→21:40)
[2018-05-29 11:42] LABS: Alanine Aminotransferase 18 U/L (12-78); Albumin 2.9 g/dL (3.4-5.0); Anion Gap 3 meq/L (5-15); Aspartate Aminotransferase 21 U/L (15-37); Blood Urea Nitrogen 25 mg/dL (7-18); Calcium 8.2 mg/dL (8.5-10.1); Carbon Dioxide 33.4 meq/L (21.0-32.0); Chloride 103 meq/L (98-107); Glomerular Filtration Rate 46 mL/min (>89); Glucose,Random 120 mg/dL (74-106); Sodium 139 meq/L (136-145)
[2018-05-29 11:45] LABS: Alkaline Phosphatase 68 U/L (45-117); Total Protein 6.5 g/dL (6.4-8.2)
[2018-05-29] MEDS ORDERED: Sod Chloride 0.9% Inj 1,000 ML IV.SIG ONE (12:00)
[2018-05-29] MEDS ORDERED: Lidocaine PF 1% Inj 5 ML Syringe INFILTRATN ONE (12:00)
[2018-05-29] MEDS ORDERED: Sodium Chlor 0.9% Inj 250 ML IV.SIG ONE (12:00)
[2018-05-29] MEDS ORDERED: Sodium Chlor 0.9% Inj 250 ML ONE (14:30)
--- NOTE | 2018-05-29 15:37 | ECG ---
Date Performed: 05/29/2018 Time Performed: 00:01:30 PTAGE: 57 years EKG: Sinus rhythm Left axis deviation Left bundle branch block Inferior infarct - age undetermined Lateral T wave lu ges may be due to myocardial ischemia Low QRS voltages in limb leads Abnormal ECG PREVIOUS TRACING : 05/28/2018 20.56 DOCTOR: Geronimo Lopez Interpretating Date/Time 05/29/2018 15:36:54
--- NOTE | 2018-05-29 15:37 | ECG ---
Date Performed: 05/28/2018 Time Performed: 20:56:29 PTAGE: 57 years EKG: UNCERTAIN REGULAR RHYTHM MARKED LEFT AXIS DEVIATION LEFT BUNDLE BRANCH BLOCK BASELINE ARTIF ACT PRECLUDES ACCURATE EVALUATION BUT APPEARS LARGELY UNCHANGED FROM PRIOR ABNORMAL ECG PREVIOUS TRACING : 05/24/2018 11.12 DOCTOR: Geronimo Lopez Interpretating Date/Time 05/29/2018 15:36:43
--- NOTE | 2018-05-29 15:47 | P.PNIM ---
Subjective Interval history: Ablation went well yesterday. Patient reports he is feeling very fatigued today. Will have biventricular ICD upgrade today. Physical Exam Vital signs: Vital Signs 05/28/18 16:00 05/28/18 17:00 05/28/18 20:39 Temperature 97.1 F L 97.4 F L Pulse Rate 59 L 72 79 Respiratory Rate 12 11 L Blood Pressure 122/76 134/84 Pulse Oximetry 96 100 05/28/18 20:45 05/28/18 21:00 05/28/18 22:00 Temperature 97.4 F L 98.0 F Pulse Rate 79 74 69 Respiratory Rate 17 13 16 Blood Pressure 131/67 130/67 124/78 Pulse Oximetry 95 95 98 05/28/18 23:00 05/29/18 00:00 05/29/18 01:00 Temperature 98.2 F Pulse Rate 66 64 72 Respiratory Rate 16 Blood Pressure 119/68 Pulse Oximetry 100 05/29/18 02:00 05/29/18 03:00 05/29/18 04:00 Temperature 98.2 F Pulse Rate 61 74 72 Respiratory Rate 14 Blood Pressure 117/75 Pulse Oximetry 96 05/29/18 05:00 05/29/18 06:00 05/29/18 06:56 Temperature Pulse Rate 74 79 Respiratory Rate 14 Blood Pressure Pulse Oximetry 05/29/18 07:00 Temperature 97.6 F Pulse Rate 69 Respiratory Rate 12 Blood Pressure 124/71 Pulse Oximetry 95 Intake & Output 05/28/18 05/29/18 05/29/18 18:59 06:59 18:59 Intake Total 120 / 120 240 / 240 Output Total 750 / 750 500 / 500 Balance -630 / -630 -260 / -260 Weight 114.3 kg Intake: Oral 120 / 120 240 / 240 Output: Urine 750 / 750 500 / 500 Other: Date of Last Bowel Movement 05/26/18 Narrative: GENERAL: Obese male in no apparent distress. CARDIOVASCULAR: Normal rate and regular rhythm without murmurs, gallops, or rubs. RESPIRATORY: Good respiratory efforts. Diminished breath sounds at the bases bilaterally GASTROINTESTINAL: Abdomen soft, non-tender, non-distended. Normal active bowel sounds MUSCULOSKELETAL: Extremities without cyanosis, or edema. NEURO: Alert & Oriented x4 to person, place, time, situation. Moves all ext x4 PSYCH: Appropriate mood and affect. Results - Labs CBC & Chem 7: 05/25/18 04:10 05/29/18 09:45 Laboratory Results - last 24 hr 05/28/18 05/29/18 23:42 09:45 Sodium 139 Potassium 5.0 D Chloride 103 Carbon Dioxide 33.4 H Anion Gap 3 L BUN 25 H Creatinine 1.55 H Estimated GFR 46 L Random Glucose 120 H Calcium 8.2 L Total Bilirubin 0.3 AST 21 ALT 18 Alkaline Phosphatase 68 Total Protein 6.5 Albumin 2.9 L Urine Color Yellow Urine Clarity Clear Urine pH 5.0 Ur Specific [place] 1.014 Urine Protein Negative Urine Glucose (UA) Negative Urine Ketones Negative Urine Occult Blood Negative Urine Nitrate Negative Urine Bilirubin Negative Urine Urobilinogen Less than 2 Ur Leukocyte Esterase Negative Urine WBC 1 Urine Bacteria Rare H Waxy Casts 7 Urine Sperm Rare H Micro UA Comment Culture not ind Ur Microscopic Review Not Reportable Urine Culture Comments Culture not ind Assessment and Plan - Plan 57 Y/O male with: CAD/ CHF/ AICD firing The pt has had four firings of his AICD over the past two weeks. In the ED, interrogation demonstrated a run of V fib. Cardiology following. EKG with LBBB. -cardiology following. 2D echo shows LVEF of 25-30% -continue cardiac regimen. Amiodarone daily -Diuretics on hold for now given borderline renal functions. Plan to resume tomorrow -EP Dr. Grider following. Status post ablation yesterday. -Plan for biventricular AICD upgrade today Syncope S/t above. -PT to evaluate tomorrow. Chronic renal failure Creatinine appears to be at baseline. -follow BMP and avoid nephrotoxins. -holding diuretics. Will hold Bumex today for the planned procedure. -Resume Bumex tomorrow. COPD CXR without recent changes. -continue inhalers. -nebs as needed. -incentive spirometry. PPx: Heparin Discharge Planning: Pending further procedures and stabilization. Anticipate DC in 2 days if no complications.
[2018-05-29] MEDS ORDERED: *morphine SULFATE 4 MG/ML PERIprocedure ONLY ONE ×2 (17:08→17:18)
[2018-05-29] MEDS ORDERED: *Ondansetron Inj 4 MG/2 ML Vial PERIprocedural Use ONLY ONE (17:20)
[2018-05-29] MEDS ORDERED: Iohexol 350 MG/ML 50 ML Vial (for Cath Lab) IVCONTRAST ONE (17:39)
--- NOTE | 2018-05-29 17:41 | CATHPROC ---
Patient Name: Rob Rodriguez Study #: [id number] Initial MD: Neli Grider Date of : 1960 Study Date: 05/29/2018 Cardiac Catheterization Report 05/29/2018 5:40:41 PM Financial #: [id number] 1 of 9 Patient Name: Rob Rodriguez Study #: [id number] Initial MD: Neli Grider Date of : 1960 Study Date: 05/29/2018 Entire Case Report Patient Information Patient Name Rob Rodriguez Date of 1960 Age 57 years Financial # [id number] Gender M AlternateID Lab Number 2 Room Number 244 Height (in) 69.0 Height (cm) 175.2 BSA 2.28 Weight (lbs) 251.5 Weight (kg) 114.3 Patient Address/Phone Number Home Address [facility] Home Phone Number [phone] [phone] Study Information Study Number Admission Scheduled Start Study Start [id number] May 24 2018 3:32PM 05/29/2018 May 29 2018 12:25PM [place] Service Cardiac Pacer/ICD Admit Source Facility Department Other [facility] - Complaint Inspector Physician and Clinical Staff Initial Neli Carvajal Cutter First Mere Huertas,ATM SERVICER TECH2 Other Anesthesia, LODGE SALES ASSOCIATE Recorder Katty Reid,RN Scrub Ronda Bragg RCIS Procedures Performed Procedure Location (Site) Vessel Name Lead Insertion Venogram Coronary Sinus Other 05/29/2018 5:40:41 PM Financial #: [id number] 2 of 9 Patient Name: Rob Rodriguez Study #: [id number] Initial MD: Neli Grider Date of : 1960 Study Date: 05/29/2018 Equipment Time Lead Oxide Mill Tender Description Size Mfg Part Number Used/Scraped [id number] 15:05 [employer] WIRE, ASAHI PROWATER 180CM 180CM Used *[id number] 43059-04 15:30 [employer] WIRE, ASAHI PROWATER 180CM 180CM Used *[id number] WIRE, BALANCE MIDDLEWEIGHT [id number] 15:42 [employer] 190CM Used 190CM *[id number] DERMABOND, ADHESIVE SKIN [id number] 14:47 CORDIS/PACER * Used GLUE MINI *[id number] 14:54 [employer] PHONTOBLADE, 7.5" RETRACTED [id number] Used [id number] 14:47 [employer] BLANKET,WARM AIR CCL * Used *[id number] TP-1103 14:47 [employer] SUTURE, STRIP PLUS 1/2" * Used *2631034 14:47 MEDLINE PACER SMITH, LIMB * 2530 *[id number] Used [id number] 14:47 MEDLINE PACER PACK, PACER CUSTOM * Used *[id number] 14:49 [employer] PACER SAFE SHEATH, FR9, 13CM FR 9 [id number] Used 14:50 Needle Sponge Count 20 200 Used 14:50 Needle Sponge Count 3 33 Used 14:50 Needle Sponge Count 3 3 Used 14:46 NYCOMED OMNIPAQUE, 300 MG, 50ML 50ML [id number] Used SUTURE, 0 ETHIBOND [CT1] (CX21D), 8pk SUTURE, 2-0 VICRYL [CT1] (NSH964E) SUTURE, 2-0 VICRYL [CT1] (OTW985R) 900278 14:48 [employer] LIVEWIRE, QUAD, MED SWEEP FR 6 Used *[id number] [facility] P[facility], ELECTROSURGICAL 14:47 * E7507 *[id number] Used SURGICAL GROUNDING ORANGE CATHETER, ATTAIN SELECT II 16:21 VITATRON MED[employer] 6248V-90 Used 6248V-90 CATHETER, GUIDE ATTAIN 15:09 [employer] * 6250V-EH Used COMMAND LEAD, ATTAIN PERFORMA 15:21 [employer] 88CM 4398-88CM Used STRAIGHT, 88CM PACEMAKER, CLARIA MRI CORE FITTER-D 16:16 [employer] [id number] Used SURESCAN 2556-2216 14:47 [employer] KACY. / * Used *93453 Equipment Model, Serial, Lot Number and Expiration Data Description Model Number Serial Number Lot Number Expiration Date LEAD, ATTAIN PERFORMA 4398 [id number] 02-07-2020 STRAIGHT, 88CM PACEMAKER, CLARIA MRI CORE FITTER-D [id number] 08-20-2019 SURESCAN PHONTOBLADE, 7.5" RETRACTED [id number] 02-24-2019 05/29/2018 5:40:41 PM Financial #: [id number] 3 of 9 Patient Name: Rob Rodriguez Study #: [id number] Initial MD: Neli Grider Date of : 1960 Study Date: 05/29/2018 Insurance Information Insurance Payor Private Health Insurance Third Green Party Third Green Party Number [facility] [employer] [facility] History: Allergies Allergy Reaction Ativan Percocet RASH Sulfa HIVES Sulfa (Sulfonamide Antibiotics) HIVES lorazepam Confusion oxycodone RASH acetaminophen PT DENIES Labs Hgb (g/dl) Hct (%) RBC (MIL/MM3) WBC (l/cumm) Platelets (thousands) 11.60-17.00 35.00-51.00 4.00-5.90 4.00-11.00 150.00-450.00 13.0 42 4.7 7.5 163 Glucose (mg/dl) BUN (mg/dl) Creatinine (mg/dl) BUN:Creatinine (1:x) 74.00-106.00 7.00-18.00 0.50-1.30 10.00-20.00 120 25 1.5 16.7 Na (meq/l) K (meq/l) 136.00-145.00 3.50-5.10 139 5 INR (PTT:PT) 0.90-1.10 1.1 Medication Medication Total Dose (Bolus/Oral) Medication Total Dosage/Unit 2% XYLOCAINE 50 mL 05/29/2018 5:40:41 PM Financial #: [id number] 4 of 9 Patient Name: Rob Rodriguez Study #: [id number] Initial MD: Neli Grider Date of : 1960 Study Date: 05/29/2018 Medications (Bolus/Oral) Medication Time Given Dosage/Unit Administered By Reason 2% XYLOCAINE 05/29/2018 2:55:39 PM 50 mL Neli Grider 50 mL 2% XYLOCAINE given in lab by Neli Grider in Left upper chest via Subcutaneous. Medication (Drip) Medication Time Given Dosage/Unit Concentration/Unit Diluent (ml) Solution ANCEF 05/29/2018 2:37:10 PM 2 g 2 g ANCEF given by Anesthesia, LODGE SALES ASSOCIATE via Peripheral IV. Ordered by Neli Grider. Reason: As per physi cians verbal order. VANCOMYCIN DRIP 05/29/2018 2:40:19 PM 1 g 1 g VANCOMYCIN DRIP given in lab by Anesthesia, LODGE SALES ASSOCIATE via Peripheral IV. Ordered by Neli Grider. [place] son: As per physicians verbal order. Initial Case Assessment Cardiovascular HR Rhythm NIBP Chest Pain 84 sr 119/72 0 Edema Present Skin color Skin Mild Normal Warm Circulatory - Right Pulses Dorsalis Pedis Radial 1 1 Scale (0,1,2,3,4,d) Circulatory - Left Pulses Dorsalis Pedis Radial 1 1 Scale (0,1,2,3,4,d) Circulatory - Lower Extremities Color Lower Right Color Lower Left Normal Normal Neurological State Oriented to time-place- Alert Moves all extremities person Respiration - General Respiration Rate SpO2 (%) O2 (lpm) (B/min) 21 97 4 05/29/2018 5:40:41 PM Financial #: [id number] 5 of 9 Patient Name: Rob Rodriguez Study #: [id number] Initial MD: Neli Grider Date of : 1960 Study Date: 05/29/2018 Final Case Assessment Cardiovascular HR Rhythm NIBP Chest Pain 65 vp of product 110/66 0 Edema Present Skin color Skin Mild Normal Warm Dry Circulatory - Right Pulses Dorsalis Pedis Radial 1 1 Scale (0,1,2,3,4,d) Circulatory - Left Pulses Dorsalis Pedis Radial 1 1 Scale (0,1,2,3,4,d) Circulatory - Lower Extremities Color Lower Right Color Lower Left Normal Normal Neurological State Drowsy Respiration - General Respiration Rate SpO2 (%) (B/min) 16 97 Comment: lma Chronological Log Time Study Chronological Log 14:08:31 Patient arrived via Bed. 14:08:33 Patient Name, D.O.B, / Armband Verified By R.N. 14:08:33 Consent signed by the physician and the patient and verified by the Complaint Inspector staff. 14:08:34 Pre-op and post- op instructions given; patient acknowledges understanding of instructions. 14:08:35 Verbal Stimulation=2 Physical Stimulation=2 Airway=2 Respiration=2 TOTAL=8. (0=absent, 1=li mited, 2=present) 14:08:36 Anesthesia at bedside. Assumes care of patient. Ambi 14:08:52 Patient has been NPO for More than 6Hrs. 14:08:54 Skin Breakdown- none per pt 05/29/2018 5:40:41 PM Financial #: [id number] 6 of 9 Patient Name: Rob Rodriguez Study #: [id number] Initial MD: Neli Grider Date of : 1960 Study Date: 05/29/2018 14:09:07 Patient Warmer Placed on the Table. 14:09:09 Disposable Defibrillator Pads Placed On Patient. 14:09:10 Louis Prominences Protected 14:09:11 A # 20 IV was noted in the Forearm (right). Grade = 0 0.9ns kvo 14:09:12 A # 22 IV was noted in the Hand (left). Grade = 0 0.9ns kvo 14:09:14 History and physical on the chart. Assessment: Initial Case, HR=84 BPM, Rhythm=sr, SLEX=027/72 mmhg, Chest Pain=0, Edema=Mild, Col or=Normal, Skin = Warm Right Pulses: Reynaldo Ped=1, Radial=1 Left Pulses: Reynlado Ped=1, Radial=1 14:28:30 Lower Right Extremities: Color=Normal Lower Left Extremities: Color=Normal Neurological: State=Alert, Ox3, OLSON Respiration: Resp=21 B/min, SpO2=97 %, O2=4 lpm 14:30:50 Table restraints applied according to hospital policy First Sponge And Instrument Count Done by Ronda Bragg RCIS. 14:35:16 Hypo's: 3, Sponges: 20, Bovie/scratch: 3 Sutures: 10, Blades: 1, Instruments: 23, Syveck Patches: 0 2 g ANCEF given by Anesthesia, LODGE SALES ASSOCIATE via Peripheral IV. Ordered by Neli Grider. Reason: As per physicians verbal 14:37:10 order. 1 g VANCOMYCIN DRIP given in lab by Anesthesia, LODGE SALES ASSOCIATE via Peripheral IV. Ordered by Jena Grider Reason: As per 14:40:19 physicians verbal order. 14:43:01 2% CHLORHEXIDINE GLUCONATE WASH AND NASAL SWIPE DONE PRIOR TO PROCEDURE. 14:43:03 Bovie ground pad applied to: right thigh 14:43:31 Left Upper Chest Prepped Times Two. 14:50:13 MD arrived. Time Out. Correct patient, procedure, procedure equipment, site and side verified with physicia n present. Time 14:54:03 concurred by MD, individual staff and LODGE SALES ASSOCIATE. Time Out #2 - Consents verified, patient in correct position, all results are labled and displa yed, safety precautions 14:54:29 taken, antibiotics administered. Time out concurred by MD, individual staff and LODGE SALES ASSOCIATE in procedu re 14:54:58 Case Start 14:55:39 50 mL 2% XYLOCAINE given in lab by Neli Grider in Left upper chest via Subcutaneous. 14:58:00 Vascular access was obtained in the Subclav. Vein (Lft. 14:58:26 Wire inserted 14:59:10 A SAFE SHEATH, FR9, 13CM FR 9 was advanced into the Subclav. Vein (Lft using the Modified S eldinger technique. 15:00:50 A Attain Sheath was advanced into the Subclav. Vein (Lft using the Percutaneous technique. to CS Os A LIVEWIRE, QUAD, MED SWEEP FR 6 was advanced vis Subclav. Vein (Lft and placed in the CS. Plac ement was 15:03:23 visually confirmed under fluoroscopy. 15:13:31 The Coronary Sinus was manually injected with 10 cc's of contrast. OMNIPAQUE, 300 MG, 50ML 50ML used. 15:13:59 The previous wire was exchanged for a 2nd WIRE, ASAHI PROWATER 180CM 180CM. 15:24:42 The previous wire was exchanged for a livewire to reposition cs sheath. A CATHETER, ATTAIN SELECT II 6248V-90 was advanced vis Subclav. Vein (Lft and placed in the CS os. Placement 15:50:02 was visually confirmed under fluoroscopy. 15:56:13 A LEAD, ATTAIN PERFORMA STRAIGHT, 88CM 88CM was inserted and positioned in the CS/LV. 05/29/2018 5:40:41 PM Financial #: [id number] 7 of 9 Patient Name: Rob Rodriguez Study #: [id number] Initial MD: Neli Grider Date of : 1960 Study Date: 05/29/2018 16:02:52 Lead placement verified under fluoroscopy 16:02:58 The CS/LV lead impedance and threshold is being tested. 16:03:27 VANCO Antibiotic Infusion Complete. 16:10:10 The CS/LV lead was sutured to the fascia. 16:15:38 A PACEMAKER, CLARIA MRI CORE FITTER-D SURESCAN was connected and placed in the pocket. 16:15:44 Implant Procedure was performed. 16:15:53 A Bivent ICD Implant . (Single) UPGRADE Second Sponge And Instrument Count Done by Ronda Bragg RCIS. 16:18:55 Hypo's: 3, Sponges: 20, Bovie/scratch: 3 Sutures: 10, Blades: 1, Instruments: , Syveck Patches: 16:23:55 PACU called. Spoke to Lulu 16:24:01 Bedside Report will be given. 16:28:45 Implantable Device card placed in patient's chart. 16:35:43 The pocket was closed. Final Sponge And Instrument Count Done by Ronda Bragg RCIS. 16:36:00 Hypo's: 3, Sponges: 20, Bovie/scratch: 3 Sutures: 10, Blades: 1, Instruments: 23, Syveck Patches: 0 16:43:31 Case End (Physician broke scrub) 16:43:33 No case complications noted. 16:43:34 Cine recording checked. 16:44:00 Steri-strips and a sterile dressing applied to site. Assessment: Final Case, HR=65 BPM, Rhythm=vp of product, KLTR=373/66 mmhg, Chest Pain=0, Edema=Mild, Color =Normal, Skin = Warm, Dry Right Pulses: Reynaldo Ped=1, Radial=1 Left Pulses: Reynaldo Ped=1, Radial=1 16:45:35 Lower Right Extremities: Color=Normal Lower Left Extremities: Color=Normal Neurological: State=Drowsy Respiration: Resp=16 B/min, SpO2=97 %, Comment=lma 16:48:11 A sling was placed on the affected arm. 16:49:24 Patient moved to stretcher End Study - Contrast Media Used In Study Contrast Total Opened (mL) Total Used (mL) Total Wasted (mL) Omnipaque 50 20 30 End Study - Maximum Contrast Load Max Contrast Load (mL) 381.1 05/29/2018 5:40:41 PM Financial #: [id number] Patient Name: Rob Rodriguez Study #: [id number] Initial MD: Neli Grider Date of : 1960 Study Date: 05/29/2018 End Study - Radiation Exposure Fluoro Time (minutes) 36.7 End Study - Patient Disposition Complications Transferred To Interventional Outcome No Telemetry Bed successful 05/29/2018 5:40:41 PM Financial #: [id number]
[2018-05-29] MEDS ORDERED: HYDROmorphone PF Inj 2 MG/ML Vial ONE (17:45)
[2018-05-29] MEDS ORDERED: ALPRAZolam 0.5 MG Tablet ONE (17:51)
[2018-05-29] MEDS: ALPRAZolam 0.25 MG Tablet PO PRN ×2 (17:55→21:37)
[2018-05-29] MEDS ORDERED: ceFAZolin 2 GM Premix Inj 2 GM/50 ML PIGGYBACK IV.SIG SCH (19:00)
[2018-05-29] MEDS: ceFAZolin 2 GM/NS 100 ML IV; Q8H IV.SIG SCH ×2 (21:38)
[2018-05-30] MEDS: Morphine Inj 4 MG/ML Vial IV.PUSH PRN ×2 (02:00→05:51)
[2018-05-30] MEDS: ceFAZolin 2 GM/NS 100 ML IV; Q8H IV.SIG SCH ×4 (05:52→14:56)
[2018-05-30] MEDS: Heparin - SQ 10,000 UNITS/ML Vial SQ SCH ×3 (05:53→22:08)
[2018-05-30 06:20] LABS: Hematocrit 33.4 % (39.0-51.0); Hemoglobin 10.9 gm/dL (13.0-17.0); Mean Corpuscular HGB Conc 32.6 % (32.0-36.0); Mean Corpuscular Hemoglobin 29.5 pg (27.0-34.0); Mean Corpuscular Volume 90.4 fL (80.0-100.0); Mean Platelet Volume 8.8 fL (7.0-11.0); Platelet Count 148 th/mm3 (150-450); Red Blood Count 3.69 mil/mm3 (4.50-5.90); Red Cell Distribution Width 15.1 % (11.6-17.2); White Blood Count 8.3 th/mm3 (4.0-11.0)
[2018-05-30 06:42] LABS: Carbon Dioxide 35.2 meq/L (21.0-32.0); Potassium 4.9 meq/L (3.5-5.1)
--- NOTE | 2018-05-30 08:47 | P.PNCA ---
Subjective Interval history: Patient seen and examined. No events overnight. s/p BiVICD upgrade yesterday without complication. Patient feeling fairly well with no chest pain, palpitations or dyspnea. No LE edema. States his is out of town and no one at home today to help him. Physical Exam Vital signs: Vital Signs 05/29/18 09:00 05/29/18 10:00 05/29/18 11:00 Temperature 97.8 F Pulse Rate 66 64 66 Respiratory Rate 16 Blood Pressure 124/72 Pulse Oximetry 05/29/18 12:00 05/29/18 13:00 05/29/18 17:05 Temperature 97.2 F L Pulse Rate 60 74 73 Respiratory Rate 14 Blood Pressure 112/65 Pulse Oximetry 94 L 05/29/18 17:15 05/29/18 17:27 05/29/18 17:30 Temperature Pulse Rate 67 64 Respiratory Rate 19 19 Blood Pressure 108/60 107/59 L Pulse Oximetry 95 96 95 05/29/18 17:45 05/29/18 18:00 05/29/18 18:08 Temperature Pulse Rate 66 69 Respiratory Rate 19 19 Blood Pressure 111/58 L 99/56 L Pulse Oximetry 95 94 L 95 05/29/18 18:15 05/29/18 19:00 05/29/18 19:24 Temperature 97.8 F 98.6 F 98.6 F Pulse Rate 62 64 64 Respiratory Rate 14 16 16 Blood Pressure 100/60 107/54 L 107/54 L Pulse Oximetry 95 98 98 05/29/18 20:00 05/29/18 20:24 05/29/18 21:00 Temperature Pulse Rate 67 62 64 Respiratory Rate 16 Blood Pressure 112/72 Pulse Oximetry 98 98 05/29/18 21:24 05/29/18 22:00 05/29/18 23:00 Temperature 98.5 F Pulse Rate 64 62 61 Respiratory Rate 16 16 Blood Pressure 107/87 104/60 Pulse Oximetry 98 98 05/30/18 00:00 05/30/18 01:00 05/30/18 02:00 Temperature Pulse Rate 62 60 59 L Respiratory Rate Blood Pressure Pulse Oximetry 05/30/18 03:00 05/30/18 04:00 05/30/18 05:00 Temperature 98.5 F Pulse Rate 64 60 60 Respiratory Rate 16 Blood Pressure 99/63 L Pulse Oximetry 98 05/30/18 06:00 Temperature Pulse Rate 59 L Respiratory Rate Blood Pressure Pulse Oximetry Intake & Output 05/29/18 05/30/18 05/30/18 18:59 06:59 18:59 Intake Total 680 / 680 Output Total 900 / 900 Balance -220 / -220 Weight 115.5 kg Intake: IV 200 / 200 Ancef Inj 2,000 MG In NS Inj 80 200 / 200 ML @ 200 mls/hr IV.SIG Q8H ANTHONY Rx#:[id number] Oral 480 / 480 Output: Urine 900 / 900 Other: Date of Last Bowel Movement 05/28/18 Narrative: GENERAL: Obese male in no apparent distress. CARDIOVASCULAR: Normal rate and regular rhythm without murmurs, gallops, or rubs. Left anterior chest wall guaze CDI RESPIRATORY: Good respiratory efforts. Diminished breath sounds at the bases bilaterally GASTROINTESTINAL: Abdomen soft, non-tender, non-distended. MUSCULOSKELETAL: Extremities without cyanosis, or edema. NEURO: Alert & Oriented x4 to person, place, time, situation. Moves all ext x4 PSYCH: Appropriate mood and affect. Assessment and Plan - Plan 57-year-old male with a severe ischemic cardiomyopathy EF 25-30% admitted after s/p successful defibrillation with VT/VF. Lexiscan last week with large scar and no ischemia Echo shows EF remains 2530% Currently on amiodarone 200mg daily, hesitant to increase dose as he is already having side effects with cataracts and baseline pulmonary issues. COPD is diagnosed, however with reported only 8 yr smoking history... ? pulmonary fibrosis. EP, Dr Grider, performed VT ablation 05/28 and BiVICD upgrade yesterday. Resume home diuretics and medications and start d/c planning for today or tomorrow due to social reasons with no one home today to assist him.
[2018-05-30] MEDS: Famotidine 20 MG Tablet PO SCH ×2 (09:54→22:07)
[2018-05-30] MEDS: Allopurinol 300 MG Tablet PO SCH (09:55)
[2018-05-30] MEDS: Pregabalin 25 MG Capsule PO SCH ×5 (09:55→17:21)
[2018-05-30] MEDS: Amiodarone 200 MG Tablet PO SCH (09:55)
--- NOTE | 2018-05-30 12:58 | P.PN ---
Subjective Interval history: [facility]patient seen and examined, + shortness of breath. Patient states his would be out of town he has nobody to take care of him if he ever began discharge. Currently denies any chest pain Physical Exam Vital signs: Vital Signs 05/29/18 13:00 05/29/18 17:05 05/29/18 17:15 Temperature 97.2 F L Pulse Rate 74 73 67 Respiratory Rate 14 19 Blood Pressure 112/65 108/60 Pulse Oximetry 94 L 95 05/29/18 17:27 05/29/18 17:30 05/29/18 17:45 Temperature Pulse Rate 64 66 Respiratory Rate 19 19 Blood Pressure 107/59 L 111/58 L Pulse Oximetry 96 95 95 05/29/18 18:00 05/29/18 18:08 05/29/18 18:15 Temperature 97.8 F Pulse Rate 69 62 Respiratory Rate 19 14 Blood Pressure 99/56 L 100/60 Pulse Oximetry 94 L 95 95 05/29/18 19:00 05/29/18 19:24 05/29/18 20:00 Temperature 98.6 F 98.6 F Pulse Rate 64 64 67 Respiratory Rate 16 16 Blood Pressure 107/54 L 107/54 L Pulse Oximetry 98 98 98 05/29/18 20:24 05/29/18 21:00 05/29/18 21:24 Temperature Pulse Rate 62 64 64 Respiratory Rate 16 16 Blood Pressure 112/72 107/87 Pulse Oximetry 98 98 05/29/18 22:00 05/29/18 23:00 05/30/18 00:00 Temperature 98.5 F Pulse Rate 62 61 62 Respiratory Rate 16 Blood Pressure 104/60 Pulse Oximetry 98 05/30/18 01:00 05/30/18 02:00 05/30/18 03:00 Temperature 98.5 F Pulse Rate 60 59 L 64 Respiratory Rate 16 Blood Pressure 99/63 L Pulse Oximetry 98 05/30/18 04:00 05/30/18 05:00 05/30/18 06:00 Temperature Pulse Rate 60 60 59 L Respiratory Rate Blood Pressure Pulse Oximetry 05/30/18 07:00 05/30/18 08:00 05/30/18 09:00 Temperature 97.8 F Pulse Rate 61 58 L 66 Respiratory Rate 16 Blood Pressure 125/73 Pulse Oximetry 05/30/18 10:00 08/24/18 11:00 Temperature 98.0 F Pulse Rate 60 60 Respiratory Rate 16 Blood Pressure 113/66 Pulse Oximetry 99 Intake & Output 05/29/18 05/30/18 05/30/18 18:59 06:59 18:59 Intake Total 680 / 680 Output Total 900 / 900 Balance -220 / -220 Weight 115.5 kg Intake: IV 200 / 200 Ancef Inj 2,000 MG In NS Inj 80 200 / 200 ML @ 200 mls/hr IV.SIG Q8H ANTHONY Rx#:[id number] Oral 480 / 480 Output: Urine 900 / 900 Other: Date of Last Bowel Movement 05/28/18 Narrative: GENERAL: Obese male in no apparent distress. CARDIOVASCULAR: Normal rate and regular rhythm without murmurs, gallops, or rubs. Left anterior chest wall guaze CDI RESPIRATORY: Good respiratory efforts. Diminished breath sounds at the bases bilaterally GASTROINTESTINAL: Abdomen soft, non-tender, non-distended. MUSCULOSKELETAL: Extremities without cyanosis, or edema. NEURO: Alert & Oriented x4 to person, place, time, situation. Moves all ext x4 PSYCH: Appropriate mood and affect. Results - Labs CBC & Chem 7: 05/30/18 05:49 05/30/18 05:49 Laboratory Results - last 24 hr 05/30/18 05/30/18 05:49 05:49 WBC 8.3 RBC 3.69 L Hgb 10.9 L Hct 33.4 L MCV 90.4 MCH 29.5 MCHC 32.6 RDW 15.1 Plt Count 148 L MPV 8.8 Sodium 142 Potassium 4.9 Chloride 104 Carbon Dioxide 35.2 H Anion Gap 3 L BUN 22 H Creatinine 1.52 H Estimated GFR 47 L Random Glucose 88 Calcium 8.0 L - Imaging Impressions Chest X-Ray 05/29/18 00:00 CONCLUSION: 1. No evidence of pneumothorax. 2. Stable bilateral medial lung infiltrates. - Procedures BIVICD upgrade Assessment and Plan - Plan 57 Y/O male with: CAD/ CHF/ AICD firing The pt has had four firings of his AICD over the past two weeks. In the ED, interrogation demonstrated a run of V fib. Cardiology following. EKG with LBBB. -cardiology following. 2D echo shows LVEF of 25-30% -continue cardiac regimen. Amiodarone daily -Diuretics on hold for now given borderline renal functions. Plan to resume tomorrow -EP Dr. Grider following. Status post ablation 05/28. -s/p biventricular AICD upgrade 05/29 Syncope S/t above. -PT to treat. Chronic renal failure Creatinine appears to be at baseline. -Resume Bumex . COPD CXR without recent changes. -continue inhalers. -nebs as needed. -incentive spirometry. PPx: Heparin
[2018-05-31] MEDS: ALPRAZolam 0.25 MG Tablet PO PRN ×2 (00:59→22:32)
[2018-05-31] MEDS: Heparin - SQ 10,000 UNITS/ML Vial SQ SCH ×3 (05:53→22:32)
[2018-05-31] MEDS: Amiodarone 200 MG Tablet PO SCH (09:08)
[2018-05-31] MEDS: Famotidine 20 MG Tablet PO SCH ×2 (09:08→20:42)
[2018-05-31] MEDS: Pregabalin 25 MG Capsule PO SCH ×3 (09:08→17:18)
[2018-05-31] MEDS: Allopurinol 300 MG Tablet PO SCH (09:09)
--- NOTE | 2018-05-31 11:09 | P.PN ---
Subjective Interval history: Follow-up [facility] ernesto May 30, 2018-patient seen and examined, + shortness of breath. Patient states his would be out of town he has nobody to take care of him if he ever began discharge. Currently denies any chest pain May 31, 2018-patient seen and examined, states his shortness of breath improved and denies any chest pain at a time he was seen. States he is feeling much better today compared to yesterday. State his csieie-tl-bla can be home to help out. Physical Exam Vital signs: Vital Signs 05/30/18 12:00 05/30/18 13:00 05/30/18 14:00 Temperature Pulse Rate 60 64 71 Respiratory Rate Blood Pressure Pulse Oximetry 05/30/18 15:00 05/30/18 16:00 05/30/18 17:00 Temperature 98.1 F Pulse Rate 62 62 62 Respiratory Rate 16 Blood Pressure 125/72 Pulse Oximetry 97 05/30/18 17:45 05/30/18 18:00 05/30/18 19:00 Temperature 98.0 F Pulse Rate 78 64 Respiratory Rate 18 Blood Pressure 118/74 Pulse Oximetry 97 96 05/30/18 20:00 05/30/18 21:00 05/30/18 22:00 Temperature Pulse Rate 60 62 66 Respiratory Rate Blood Pressure Pulse Oximetry 05/30/18 23:00 05/31/18 00:00 05/31/18 01:00 Temperature Pulse Rate 59 L 62 59 L Respiratory Rate 18 Blood Pressure 121/70 Pulse Oximetry 05/31/18 02:00 05/31/18 03:00 05/31/18 04:00 Temperature Pulse Rate 62 67 58 L Respiratory Rate Blood Pressure Pulse Oximetry 05/31/18 05:00 05/31/18 06:00 05/31/18 07:00 Temperature 97.9 F Pulse Rate 70 60 60 Respiratory Rate 24 Blood Pressure 109/66 Pulse Oximetry 98 05/31/18 08:57 Temperature Pulse Rate 60 Respiratory Rate 20 Blood Pressure Pulse Oximetry 98 Intake & Output 05/30/18 05/31/18 05/31/18 18:59 06:59 18:59 Intake Total 720 / 720 580 / 580 Output Total 525 / 525 2625 / 2625 Balance / -2044 / -2044 Weight 115.3 kg Intake: IV 100 / 100 Ancef Inj 2,000 MG In NS Inj 80 100 / 100 ML @ 200 mls/hr IV.SIG Q8H ANTHONY Rx#:[id number] Oral 720 / 720 480 / 480 Output: Urine 525 / 525 2625 / 2625 Other: Date of Last Bowel Movement 05/28/18 05/29/18 Narrative: GENERAL: Obese male in no apparent distress. CARDIOVASCULAR: Normal rate and regular rhythm without murmurs, gallops, or rubs. Left anterior chest wall guaze CDI RESPIRATORY: Good respiratory efforts. Diminished breath sounds at the bases bilaterally GASTROINTESTINAL: Abdomen soft, non-tender, non-distended. MUSCULOSKELETAL: Extremities without cyanosis, or edema. NEURO: Alert & Oriented x4 to person, place, time, situation. Moves all ext x4 PSYCH: Appropriate mood and affect. Results - Labs CBC & Chem 7: 05/30/18 05:49 05/30/18 05:49 - Procedures BIVICD upgrade Assessment and Plan - Plan 57 Y/O male with: CAD/ CHF/ AICD firing The pt has had four firings of his AICD over the past two weeks. In the ED, interrogation demonstrated a run of V fib. Cardiology following. EKG with LBBB. -cardiology following. 2D echo shows LVEF of 25-30% -continue cardiac regimen. Amiodarone daily. Continue Bumex -EP Dr. Grider following. Status post ablation 05/28. -s/p biventricular AICD upgrade 05/29 Syncope S/t above. -PT to treat. Chronic renal failure Creatinine appears to be at baseline. -continue Bumex . COPD CXR without recent changes. -continue inhalers. -nebs as needed. -incentive spirometry. PPx: Heparin
--- NOTE | 2018-05-31 11:11 | P.DS ---
Date of admission: 05/24/18 15:32 Primary care physician: Dax Montana MD Anticipated date of discharge: 06/02/18 Brief History from admission: The patient is a 57-year-old male with past medical history of CAD status post CABG who is presenting to the hospital following his pacemaker firing. The patient states that his pacemaker has fired 4 times in the past 2 weeks. He said the second shock he received was the worst. He states that the intensity of the shocks ranged from having a hand grenade go off to a nuclear weapon going off. He said today he was walking his dog when he felt symptomatic. He said he was lightheaded and dizzy and then he was brought to his knees. He said the pacemaker fired and he blacked out for a few seconds. He was able to slowly get up and walk back to his car and drive home. He said at home he did not feel right. He felt dizzy with any movement. He then got a ride to the hospital. He says that a few months ago he had some sort of catheterization and following that he did not need to take Imdur for chest pain. He said that about [address] Grider performed procedure to adjust the pacemaker. The patient said that his pacemaker was interrogated in the emergency department. He is currently a little shaky but he says that is from his breathing treatments. He says his amiodarone dose used to be higher. DS: Summary Hospital Course: While in hospital, patient was treated for: CAD/ CHF/ AICD firing The pt has had four firings of his AICD over the past two weeks. In the ED, interrogation demonstrated a run of V fib. EKG with LBBB. -cardiology was consulted. 2D echo shows LVEF of 25-30% -continue cardiac regimen. Amiodarone daily. Continue Bumex -EP Dr. Grider following. Status post ablation 05/28. -s/p biventricular AICD upgrade 05/29 Syncope S/t above. -PT to treat. Chronic renal failure Creatinine appears to be at baseline. -Treated with Bumex . COPD CXR without recent changes. -continue inhalers. -nebs as needed. -incentive spirometry. PPx: Heparin - Time Spent with Patient Total time spent providing and/or coordinating discharge services: Greater than 30 minutes - Quality: VTE Deep Vein Thrombosis/Pulmonary Embolism Present on Admission: No Exam Vital signs: Vital Signs 05/30/18 12:00 05/30/18 13:00 05/30/18 14:00 Temperature Pulse Rate 60 64 71 Respiratory Rate Blood Pressure Pulse Oximetry 05/30/18 15:00 05/30/18 16:00 05/30/18 17:00 Temperature 98.1 F Pulse Rate 62 62 62 Respiratory Rate 16 Blood Pressure 125/72 Pulse Oximetry 97 05/30/18 17:45 05/30/18 18:00 05/30/18 19:00 Temperature 98.0 F Pulse Rate 78 64 Respiratory Rate 18 Blood Pressure 118/74 Pulse Oximetry 97 96 05/30/18 20:00 05/30/18 21:00 05/30/18 22:00 Temperature Pulse Rate 60 62 66 Respiratory Rate Blood Pressure Pulse Oximetry 05/30/18 23:00 05/31/18 00:00 05/31/18 01:00 Temperature Pulse Rate 59 L 62 59 L Respiratory Rate 18 Blood Pressure 121/70 Pulse Oximetry 05/31/18 02:00 05/31/18 03:00 05/31/18 04:00 Temperature Pulse Rate 62 67 58 L Respiratory Rate Blood Pressure Pulse Oximetry 05/31/18 05:00 05/31/18 06:00 05/31/18 07:00 Temperature 97.9 F Pulse Rate 70 60 60 Respiratory Rate 24 Blood Pressure 109/66 Pulse Oximetry 98 05/31/18 08:57 Temperature Pulse Rate 60 Respiratory Rate 20 Blood Pressure Pulse Oximetry 98 Intake & Output 05/30/18 05/31/18 05/31/18 18:59 06:59 18:59 Intake Total 720 / 720 580 / 580 Output Total 525 / 525 2625 / 2625 Balance -2044 / -2044 Weight 115.3 kg Intake: IV 100 / 100 Ancef Inj 2,000 MG In NS Inj 80 100 / 100 ML @ 200 mls/hr IV.SIG Q8H [facility] Rx#:[id number] Oral 720 / 720 480 / 480 Output: Urine 525 / 525 2625 / 2625 Other: Date of Last Bowel Movement 05/28/18 05/29/18 Narrative: GENERAL: NAD SKIN: Warm and dry. HEAD: Normocephalic. EYES: No scleral icterus. No injection or drainage. NECK: Supple, trachea midline. No JVD or lymphadenopathy. CARDIOVASCULAR: Regular rate and rhythm without murmurs, gallops, or rubs. RESPIRATORY: Breath sounds equal bilaterally. No accessory muscle use. GASTROINTESTINAL: Abdomen soft, non-tender, nondistended. MUSCULOSKELETAL: No cyanosis, or edema. BACK: Nontender without obvious deformity. No CVA tenderness. Results Procedures completed during hospitalization: BIVICD upgrade - Impressions ITS Impressions Head CT 05/24/18 11:28 CONCLUSION: 1. No acute intracranial abnormality. . Chest X-Ray 05/29/18 00:00 CONCLUSION: 1. No evidence of pneumothorax. 2. Stable bilateral medial lung infiltrates. Discharge Plan - Discharge Disposition Patient Disposition: Discharge Home - Discharge Condition Condition: Good - Discharge Order Discharge Orders: Discharge Order (Routine); Ordered 06/02/18 Ordered By: Víctor Beltran - Discharge Details Anticipated Discharge Date: 06/02/18 - Physicians Team Primary Care Provider: Dax Montana Attending Provider: Víctor Beltran Other Providers: Yobani Doan MD ; Neli Grider MD
--- NOTE | 2018-05-31 11:32 | P.DCO ---
- Physical Therapy Order: Evaluate and treat - Home Health Nursing Order: Signs/symptoms of disease process - Certification I have seen patient Rob Rodriguez on 05/31/18. My clinical findings support the need for the requested home health care services because: Deconditioned with increased weakness I certify that my clinical findings support that this patient is homebound because: Poor cardiac reserve
--- NOTE | 2018-05-31 12:03 | P.PNCA ---
Subjective Interval history: patient did well overnight then this morning around 10:11 am had abrupt episode of nausea and chest pain in left upper chest wall. This was associated with NSVT on telemetry. No further episodes, however this was quite uncomfortable for him and he is concerned. Physical Exam Vital signs: Vital Signs 05/30/18 12:00 05/30/18 13:00 05/30/18 14:00 Temperature Pulse Rate 60 64 71 Respiratory Rate Blood Pressure Pulse Oximetry 05/30/18 15:00 05/30/18 16:00 05/30/18 17:00 Temperature 98.1 F Pulse Rate 62 62 62 Respiratory Rate 16 Blood Pressure 125/72 Pulse Oximetry 97 05/30/18 17:45 05/30/18 18:00 05/30/18 19:00 Temperature 98.0 F Pulse Rate 78 64 Respiratory Rate 18 Blood Pressure 118/74 Pulse Oximetry 97 96 05/30/18 20:00 05/30/18 21:00 05/30/18 22:00 Temperature Pulse Rate 60 62 66 Respiratory Rate Blood Pressure Pulse Oximetry 05/30/18 23:00 05/31/18 00:00 05/31/18 01:00 Temperature Pulse Rate 59 L 62 59 L Respiratory Rate 18 Blood Pressure 121/70 Pulse Oximetry 05/31/18 02:00 05/31/18 03:00 05/31/18 04:00 Temperature Pulse Rate 62 67 58 L Respiratory Rate Blood Pressure Pulse Oximetry 05/31/18 05:00 05/31/18 06:00 05/31/18 07:00 Temperature 97.9 F Pulse Rate 70 60 60 Respiratory Rate 24 Blood Pressure 109/66 Pulse Oximetry 98 05/31/18 08:57 Temperature Pulse Rate 60 Respiratory Rate 20 Blood Pressure Pulse Oximetry 98 Intake & Output 05/30/18 05/31/18 05/31/18 18:59 06:59 18:59 Intake Total 720 / 720 580 / 580 Output Total 525 / 525 2625 / 2625 Balance -2044 / Weight 115.3 kg Intake: IV 100 / 100 Ancef Inj 2,000 MG In NS Inj 80 100 / 100 ML @ 200 mls/hr IV.SIG Q8H [facility] Rx#:[id number] Oral 720 / 720 480 / 480 Output: Urine 525 / 525 2625 / 2625 Other: Date of Last Bowel Movement 05/28/18 05/29/18 Narrative: GENERAL: Obese male in no apparent distress. CARDIOVASCULAR: Normal rate and regular rhythm without murmurs, gallops, or rubs. Left anterior chest wall guaze CDI RESPIRATORY: Good respiratory efforts. Diminished breath sounds at the bases bilaterally GASTROINTESTINAL: Abdomen soft, non-tender, non-distended. MUSCULOSKELETAL: Extremities without cyanosis, or edema. NEURO: Alert & Oriented x4 to person, place, time, situation. Moves all ext x4 PSYCH: Appropriate mood and affect. Assessment and Plan - Plan 57-year-old male with a severe ischemic cardiomyopathy EF 25-30% admitted after s/p successful defibrillation with VT/VF. Lexiscan last week with large scar and no ischemia Echo shows EF remains 2530% Currently on amiodarone 200mg daily, hesitant to increase dose as he is already having side effects with cataracts and baseline pulmonary issues. COPD is diagnosed, however with reported only 8 yr smoking history... ? pulmonary fibrosis. EP, Dr Grider, performed VT ablation 05/28 and BiVICD upgrade 05/29 He has had another episode this AM of lengthy, symptomatic NSVT. I have reached out to Dr Grider who is off today to see if he may direct us further. His partner covering for the weekend is not an racecar driver and also recommended discussing further with Dr Grider further possible management strategy. I have discussed this with the treating hospitalist and recommend holding on d/c, planned for today, pending further guidance from Dr Grider.
--- NOTE | 2018-05-31 17:34 | ECG ---
Date Performed: 05/29/2018 Time Performed: 20:16:56 PTAGE: 57 years EKG: CONSIDER ACUTE ST ELEVATION PR Atrial fibrillation Severe right axis deviation Righ t bundle branch block EXTENSIVE INFARCT WITH SOME ACUTE CHANGES Inferior ST elevation, CONSID ER ACUTE INFARCT Low QRS voltages in precordial leads Abnormal ECG PREVIOUS TRACING : 05/29/2018 18.19 DOCTOR: Neli Grider Interpretating Date/Time 05/31/2018 17:30:50
--- NOTE | 2018-05-31 17:36 | ECG ---
Date Performed: 05/29/2018 Time Performed: 18:19:27 PTAGE: 57 years EKG: ELECTRONIC VENTRICULAR PACEMAKER ABNORMAL RHYTHM ECG PREVIOUS TRACING : 05/29/2018 00.01 DOCTOR: Neli Grider Interpretating Date/Time 05/31/2018 17:32:11
[2018-05-31] MEDS: Acetaminophen 325 MG Tablet PO PRN (20:42)
[2018-06-01] MEDS: Heparin - SQ 10,000 UNITS/ML Vial SQ SCH ×3 (07:46→22:43)
[2018-06-01] MEDS: Amiodarone 200 MG Tablet PO SCH (09:05)
[2018-06-01] MEDS: Famotidine 20 MG Tablet PO SCH ×2 (09:05→22:41)
[2018-06-01] MEDS: Allopurinol 300 MG Tablet PO SCH (09:06)
[2018-06-01] MEDS: Pregabalin 25 MG Capsule PO SCH ×3 (09:06→17:46)
--- NOTE | 2018-06-01 11:32 | P.PN ---
Subjective Interval history: Follow-up AICD firing May 30, 2018-patient seen and examined, + shortness of breath. Patient states his would be out of town he has nobody to take care of him if he ever began discharge. Currently denies any chest pain May 31, 2018-patient seen and examined, states his shortness of breath improved and denies any chest pain at a time he was seen. States he is feeling much better today compared to yesterday. State his [id number] can be home to help out. June 01, 2018-patient seen and examined, currently denies any chest pain or nausea. Yesterday patient had NSVT associated with nausea, for which discharge was held pending further evaluation from store keeper Physical Exam Vital signs: Vital Signs 05/31/18 12:00 05/31/18 13:00 05/31/18 14:00 Temperature Pulse Rate 62 64 66 Respiratory Rate Blood Pressure Pulse Oximetry 05/31/18 15:00 05/31/18 16:00 05/31/18 17:00 Temperature 98.4 F Pulse Rate 64 60 72 Respiratory Rate 18 Blood Pressure 131/63 Pulse Oximetry 96 05/31/18 18:00 05/31/18 20:00 05/31/18 21:00 Temperature Pulse Rate 66 65 60 Respiratory Rate Blood Pressure Pulse Oximetry 05/31/18 22:00 05/31/18 23:00 06/01/18 00:00 Temperature 98.7 F Pulse Rate 62 64 70 Respiratory Rate 22 Blood Pressure 115/72 Pulse Oximetry 98 06/01/18 01:00 06/01/18 03:00 06/01/18 04:00 Temperature Pulse Rate 64 66 68 Respiratory Rate Blood Pressure 132/65 Pulse Oximetry 99 06/01/18 05:00 06/01/18 06:00 06/01/18 07:00 Temperature 97.4 F L Pulse Rate 67 59 L 60 Respiratory Rate 20 Blood Pressure 113/70 Pulse Oximetry 97 06/01/18 08:00 06/01/18 09:00 06/01/18 10:00 Temperature Pulse Rate 60 60 62 Respiratory Rate Blood Pressure Pulse Oximetry 06/01/18 11:00 06/01/18 11:26 Temperature 97.5 F L Pulse Rate 60 Respiratory Rate 18 Blood Pressure 106/68 Pulse Oximetry 97 99 Intake & Output 05/31/18 06/01/1806/01/18 18:59 06:59 18:59 Intake Total 1700 / 1700 Output Total 620 / 620 600 / 600 Balance 1080 / 1080 -600 / -600 Weight 115.3 kg Intake: Oral 1700 / 1700 Output: Urine 620 / 620 600 / 600 Other: Date of Last Bowel Movement 05/29/18 05/31/18 Narrative: GENERAL: NAD SKIN: Warm and dry. HEAD: Normocephalic. EYES: No scleral icterus. No injection or drainage. NECK: Supple, trachea midline. No JVD or lymphadenopathy. CARDIOVASCULAR: Regular rate and rhythm without murmurs, gallops, or rubs. Left anterior chest wall guaze CDI RESPIRATORY: Breath sounds equal bilaterally. No accessory muscle use. GASTROINTESTINAL: Abdomen soft, non-tender, nondistended. MUSCULOSKELETAL: No cyanosis, or edema. BACK: Nontender without obvious deformity. No CVA tenderness. Results - Labs CBC & Chem 7: 05/30/18 05:49 05/30/18 05:49 - Procedures BIVICD upgrade Assessment and Plan - Plan 57 Y/O male with: CAD/ CHF/ AICD firing The pt has had four firings of his AICD over the past two weeks. In the ED, interrogation demonstrated a run of V fib. Cardiology following. EKG with LBBB. -cardiology following. 2D echo shows LVEF of 25-30% -continue cardiac regimen. Amiodarone daily. Continue Bumex -EP Dr. Grider following. Status post ablation 05/28. -s/p biventricular AICD upgrade 05/29 Patient had NSVT, therefore awaiting for further evaluation from store keeper Syncope S/t above. -PT to treat. Chronic renal failure Creatinine appears to be at baseline. -continue Bumex . COPD CXR without recent changes. -continue inhalers. -nebs as needed. -incentive spirometry. PPx: Heparin
[2018-06-01] MEDS: Acetaminophen 325 MG Tablet PO PRN (15:26)
[2018-06-01] MEDS: ALPRAZolam 0.25 MG Tablet PO PRN (23:30)
[2018-06-02] MEDS: Heparin - SQ 10,000 UNITS/ML Vial SQ SCH ×2 (05:38→14:37)
[2018-06-02] MEDS: Allopurinol 300 MG Tablet PO SCH (08:44)
[2018-06-02] MEDS: Pregabalin 25 MG Capsule PO SCH ×2 (08:44→12:16)
[2018-06-02] MEDS: Amiodarone 200 MG Tablet PO SCH (08:45)
[2018-06-02] MEDS: Famotidine 20 MG Tablet PO SCH (08:45)
--- NOTE | 2018-06-02 10:18 | P.PN ---
Subjective Interval history: Follow-up AICD firing May 30, 2018-patient seen and examined, + shortness of breath. Patient states his would be out of town he has nobody to take care of him if he ever began discharge. Currently denies any chest pain May 31, 2018-patient seen and examined, states his shortness of breath improved and denies any chest pain at a time he was seen. States he is feeling much better today compared to yesterday. State his [id number] can be home to help out. June 01, 2018-patient seen and examined, currently denies any chest pain or nausea. Yesterday patient had NSVT associated with nausea, for which discharge was held pending further evaluation from punch press setter June 02, 2018-patient seen and examined, remains stable and denies any chest pain or shortness of breath. Only complains of left shoulder pain. Physical Exam Vital signs: Vital Signs 06/01/18 11:00 06/01/18 11:26 06/01/18 12:00 Temperature 97.5 F L Pulse Rate 60 60 Respiratory Rate 18 Blood Pressure 106/68 Pulse Oximetry 97 99 06/01/18 13:00 06/01/18 14:00 06/01/18 15:00 Temperature 97.5 F L Pulse Rate 60 60 60 Respiratory Rate 22 Blood Pressure 147/80 H Pulse Oximetry 97 06/01/18 16:00 06/01/18 17:00 06/01/18 18:00 Temperature Pulse Rate 60 60 60 Respiratory Rate Blood Pressure Pulse Oximetry 06/01/18 19:00 06/01/18 19:32 06/01/18 20:00 Temperature 98.0 F Pulse Rate 66 Respiratory Rate 16 18 Blood Pressure 110/65 Pulse Oximetry 97 96 06/01/18 21:00 06/01/18 22:00 06/01/18 23:00 Temperature Pulse Rate 58 L 62 60 Respiratory Rate 16 Blood Pressure Pulse Oximetry 95 06/01/18 23:59 06/02/18 00:00 06/02/18 01:00 Temperature 98.1 F Pulse Rate 60 66 Respiratory Rate 15 17 Blood Pressure 117/72 Pulse Oximetry 95 06/02/18 01:51 06/02/18 02:00 06/02/18 03:00 Temperature Pulse Rate 55 L 58 L 58 L Respiratory Rate 16 Blood Pressure Pulse Oximetry 06/02/18 04:00 08/27/18 04:15 06/02/18 05:00 Temperature 97.8 F Pulse Rate 61 59 L 61 Respiratory Rate 17 Blood Pressure 130/72 Pulse Oximetry 97 06/02/18 06:00 06/02/18 06:08 06/02/18 07:00 Temperature 97.7 F Pulse Rate 60 60 Respiratory Rate 16 18 Blood Pressure 134/68 Pulse Oximetry 96 06/02/18 08:00 06/02/18 09:00 06/02/18 09:56 Temperature Pulse Rate 62 61 60 Respiratory Rate Blood Pressure Pulse Oximetry 06/02/18 09:59 06/02/18 10:06 Temperature Pulse Rate 60 Respiratory Rate Blood Pressure Pulse Oximetry 92 L Intake & Output 06/01/18 06/02/18 06/02/18 18:59 06:59 18:59 Intake Total 1680 / 1680 480 / 480 Output Total 990 / 990 3000 / 3000 Balance 690 / 690 -2520 / -2520 Weight 113.6 kg Intake: Oral 1680 / 1680 480 / 480 Output: Urine 990 / 990 3000 / 3000 Other: Date of Last Bowel Movement 05/31/18 06/01/18 06/01/18 Narrative: GENERAL: NAD SKIN: Warm and dry. HEAD: Normocephalic. EYES: No scleral icterus. No injection or drainage. NECK: Supple, trachea midline. No JVD or lymphadenopathy. CARDIOVASCULAR: Regular rate and rhythm without murmurs, gallops, or rubs. Left anterior chest wall guaze CDI RESPIRATORY: Breath sounds equal bilaterally. No accessory muscle use. GASTROINTESTINAL: Abdomen soft, non-tender, nondistended. MUSCULOSKELETAL: No cyanosis, or edema. BACK: Nontender without obvious deformity. No CVA tenderness. Results - Labs CBC & Chem 7: 05/30/18 05:49 05/30/18 05:49 - Procedures BIVICD upgrade Assessment and Plan - Plan 57 Y/O male with: CAD/ CHF/ AICD firing The pt has had four firings of his AICD over the past two weeks. In the ED, interrogation demonstrated a run of V fib. Cardiology following. EKG with LBBB. -cardiology following. 2D echo shows LVEF of 25-30% -continue cardiac regimen. Amiodarone daily. Continue Bumex -EP Dr. Grider following. Status post ablation 05/28. -s/p biventricular AICD upgrade 05/29 Patient had NSVT two night ago, therefore awaiting for further evaluation from punch press setter today June 02, 2018 prior to discharge Syncope S/t above. -PT to treat. Chronic renal failure Creatinine appears to be at baseline. -continue Bumex . COPD CXR without recent changes. -continue inhalers. -nebs as needed. -incentive spirometry. PPx: Heparin
[2018-06-02] MEDS: Acetaminophen 325 MG Tablet PO PRN (10:47)
== END 2018-06-02 16:48 | disposition home health service (06) ==
LOC: NEPC 10:49 → NEDA 15:32 → HCIN 22:21 → HCIS 05-26 17:33
PROVIDERS: ADMIT Hospitalist; ATTEND Hospitalist

== ENCOUNTER 2018-06-03 12:12 | Inpatient (IN) ==
[2018-06-03] MEDS ORDERED: Lidocaine 2% 100 MG/5 ML Syringe IV.PUSH ONE ×2 (12:20→20:15)
[2018-06-03] MEDS ORDERED: Morphine Inj 4 MG/ML Vial IV.PUSH ONE (12:20)
[2018-06-03] MEDS ORDERED: Metoprolol Inj 5 MG/5 ML Vial IV.PUSH STA (12:29)
[2018-06-03] MEDS: Metoprolol Inj 5 MG/5 ML Vial IV.PUSH PRN ×3 (12:35→12:45)
[2018-06-03] MEDS ORDERED: ALPRAZolam 0.5 MG Tablet PO ONE (13:05)
[2018-06-03] MEDS ORDERED: Amiodarone Inj 150 MG in Dextrose 5% in Water Inj 97 ML IV.SIG ONE ×2 (13:10)
[2018-06-03] MEDS ORDERED: Carvedilol 12.5 MG Tablet PO ONE (13:15)
[2018-06-03] MEDS ORDERED: Bisacodyl 10 MG Supp RECTAL PRN (13:17)
[2018-06-03 13:18] LABS: Baso # (Auto) 0.1 th/mm3 (0.0-0.2); Baso % (Auto) 0.6 % (0.0-2.0); Eos # (Auto) 0.2 th/mm3 (0.0-0.4); Eos % (Auto) 1.9 % (0.0-4.0); Hematocrit 40.7 % (39.0-51.0); Hemoglobin 13.3 gm/dL (13.0-17.0); Lymph # (Auto) 0.9 th/mm3 (1.0-4.8); Lymph % (Auto) 9.1 % (9.0-44.0); Mean Corpuscular HGB Conc 32.8 % (32.0-36.0); Mean Corpuscular Hemoglobin 29.3 pg (27.0-34.0); Mean Corpuscular Volume 89.6 fL (80.0-100.0); Mean Platelet Volume 8.9 fL (7.0-11.0); Mono # (Auto) 1.1 th/mm3 (0.0-0.9); Mono % (Auto) 10.6 % (0.0-8.0); Neut # (Auto) 7.7 th/mm3 (1.8-7.7); Neut % (Auto) 77.8 % (16.0-70.0); Platelet Count 193 th/mm3 (150-450); Red Blood Count 4.54 mil/mm3 (4.50-5.90); Red Cell Distribution Width 14.9 % (11.6-17.2); White Blood Count 9.9 th/mm3 (4.0-11.0)
[2018-06-03] MEDS ORDERED: Potassium Chlor 20 mEq Premix 20 MEQ/100 ML PIGGYBACK IV.SIG PRN ×2 (13:22)
[2018-06-03] MEDS ORDERED: Potassium Chloride 25 MEQ Effervescent Tablet PO PRN (13:22)
[2018-06-03] MEDS ORDERED: Magnesium Sulfate Inj 2 GM in Sodium Chlor 0.9% Inj 96 ML IV.SIG PRN (13:22)
[2018-06-03] MEDS ORDERED: Sodium Phosphate Inj 30 MMOL in Sodium Chlor 0.9% Inj 250 ML IV.SIG PRN (13:22)
[2018-06-03] MEDS ORDERED: Potassium Phosphate 500 MG Soluble Tablet PO PRN ×2 (13:22)
[2018-06-03] MEDS ORDERED: Potassium Chlor 40 mEq Premix 40 MEQ/100 ML PIGGYBACK IV.SIG PRN ×2 (13:22)
[2018-06-03] MEDS ORDERED: Magnesium Oxide 400 MG Tablet PO PRN (13:22)
[2018-06-03] MEDS ORDERED: Magnesium Sulfate Inj 4 GM in Sodium Chlor 0.9% Inj 92 ML IV.SIG PRN (13:22)
[2018-06-03] MEDS ORDERED: Potassium Phosphate Inj 30 MMOL in Sodium Chlor 0.9% Inj 250 ML IV.SIG PRN (13:22)
--- NOTE | 2018-06-03 13:23 | ED ---
HPI General Chief complaint: House Admin Problem Stated complaint: House Admin Time Seen by Provider: 06/03/18 12:18 Source: patient and EMS Mode of arrival: EMS Limitations: no limitations History of Present Illness HPI narrative: Patient is a 57-year-old male brought in by EMS due to defibrillator firing. He recently had his pacemaker/defibrillator replaced and was discharged home yesterday. He says he went to the bathroom today and passed out, woke up with the defibrillator firing. He says he can feel when the defibrillator is going to go off. He is complaining of a lot of chest pain , but was not having any until the defibrillator started firing. He denies shortness of breath. He denies fever or chills. He says he has been taking his medications as prescribed. Related Data Home Medications Medication Instructions Recorded Confirmed Aspirin Low Dose 81 mg PO DAILY 05/24/18 05/24/18 albuterol sulfate [ProAir HFA] 1 puff INHALATION Q6H PRN 05/24/18 05/24/18 allopurinol 300 mg PO DAILY 05/24/18 05/24/18 alprazolam [Xanax] 0.25 mg PO TID PRN 05/24/18 05/24/18 amiodarone 200 mg PO DAILY 05/24/18 05/24/18 atorvastatin 80 mg PO DAILY 05/24/18 05/24/18 bumetanide 2 mg PO DAILY 05/24/18 05/24/18 clopidogrel [Plavix] 75 mg PO DAILY 05/24/18 05/24/18 fluticasone-vilanterol [Breo 1 inh INHALATION DAILY 05/24/18 05/24/18 Ellipta] formoterol fumarate 12 mcg INHALATION PRN PRN 05/24/18 05/24/18 ipratropium bromide 0.5 mg INHALATION Q8H PRN 05/24/18 05/24/18 metolazone 5 mg PO DAILY 05/24/18 05/24/18 nitroglycerin [Nitrostat] 0.4 mg SUBLINGUAL Q5-15M PRN 05/24/18 05/24/18 potassium chloride 20 meq PO DAILY 05/24/18 05/24/18 pregabalin [Lyrica] 50 mg PO TID 05/24/18 05/24/18 ranitidine HCl 75 mg PO DAILY 05/24/18 05/24/18 tamsulosin 0.4 mg PO BID 05/24/18 05/24/18 tramadol 50 mg PO TID 05/24/18 05/24/18 Allergies Allergy/AdvReac Type Severity Reaction Status Date / Time oxycodone Allergy Severe RASH Verified 07/13/17 07:20 Sulfa (Sulfonamide Allergy Severe HIVES Verified 07/13/17 07:20 Antibiotics) lorazepam AdvReac Severe Confusion Verified 07/13/17 10:30 Review of Systems ROS: all other systems reviewed are negative Constitutional Denies chills and Denies fever(s) Cardiovascular Reports chest pain Respiratory Denies cough and Denies dyspnea Gastrointestinal Denies nausea and Denies vomiting Musculoskeletal Denies myalgias and Denies arthralgias Integumentary/Breasts Reports change in pigmentation Neurologic Denies frequent falls and Denies focal weakness [facility] Medical History Medical History AICD discharge (Acute) CAD (coronary artery disease) (Acute) CHF (congestive heart failure) (Acute) COPD (chronic obstructive pulmonary disease) (Acute) Chronic renal failure (Acute) Hypertension (Acute) Pacemaker (Acute) Surgical History Surgical History AICD (automatic cardioverter/defibrillator) present (Acute) S/P CABG x 2 (Acute) S/P CABG x 4 (Acute) Social History Social History Substance History: No History of Abuse Second Hand Smoke Exposure: No Smoking Status: Former smoker Tobacco Type: Cigarettes How Often Do You Have a Drink Containing Alcohol: Never Recent Travel in [facility] within the Last 8 Weeks: No Recent Out of Country Travel within the Last 8 Weeks: No Immunization History Tetanus Immunization: Unsure Hx Influenza Vaccine This Season: Yes Exam Narrative Exam Narrative: GENERAL: Awake and alert, in no acute distress. SKIN: Focused skin assessment warm/dry. Ecchymosis to the left chest. Surgical site intact. HEAD: Atraumatic. Normocephalic. EYES: Pupils equal and round. No scleral icterus. ENT: Mucous membranes pink and moist. NECK: Trachea midline. No JVD. CARDIOVASCULAR: Regular rate and rhythm. No murmur appreciated. RESPIRATORY: No accessory muscle use. Clear to auscultation. Breath sounds equal bilaterally. GASTROINTESTINAL: Abdomen soft, non-tender, nondistended. MUSCULOSKELETAL: No obvious deformities. No clubbing. No cyanosis. No edema. NEUROLOGICAL: Awake and alert. No obvious cranial nerve deficits. Motor grossly within normal limits. Normal speech. PSYCHIATRIC: Appropriate mood and affect; insight and judgment normal. Course Initial Documented Vital Signs Pulse Rate 82 06/03/18 12:13 Respiratory Rate 20 06/03/18 12:13 Pulse Oximetry 94 L 06/03/18 12:13 Last Documented Vital Signs Temperature 98.3 F 06/03/18 14:00 Pulse Rate 60 06/03/18 16:32 Respiratory Rate 19 06/03/18 16:00 Blood Pressure 102/59 L 06/03/18 16:00 Pulse Oximetry 94 L 06/03/18 16:31 Critical Care Time Critical Care Time: Yes Total Critical Care Time: 35 Attestation: Aggregate critical care time was 35 minutes. Time to perform other separately billable procedures was not included in the critical care time. My time did not include minutes spent treating any other patients simultaneously or on activities that did not directly contribute to the patient's treatment. The services I provided to this patient were to treat and/or prevent clinically significant deterioration that could result in: Serious illness or I provided critical care services requiring my management, as noted below: Chart data review, documentation time, medication orders and management, vital sign assessments/reviewing monitor data, ordering and reviewing lab tests, ordering and interpreting/reviewing x-rays and diagnostic studies, care of the patient and discussion of the patient with the admitting physicians. Medical Decision Making MDM Narrative Medical decision making narrative: Patient is a 57 year old male who comes in due to defibrillator firing. Patient placed on the playground monitor and observed to go into vtach with defibrillator firing. This happened several times. Patient is already taking Amiodarone and was in the hospital last week and on Amiodarone IV. Given Lidocaine and Morphine. Dr. Doan was in the ED when the patient arrived. The patient is known to him. He asked for Metoprolol 5mg x 5 total doses. [employer] called to interrogate the device and adjust the pacing parameters. Patient given Xanax. Admitted to the ICU. Medical Screen Exam Complete: Yes Emergency Medical Condition: Yes Differential Diagnosis Differential Diagnosis: ACS vs refractory Vtach vs electrolyte abnormalities Medical Records Medical records reviewed: Yes I reviewed the patient's medical records. Lab Data Lab results reviewed: Yes I reviewed the patient's lab results. Result diagrams: 06/03/18 12:45 06/03/18 12:45 Lab Results 06/03/18 06/03/18 06/03/18 Range/Units 12:45 12:45 12:45 WBC 9.9 (4.0-11.0) th/mm3 RBC 4.54 (4.50-5.90) mil/mm3 Hgb 13.3 (13.0-17.0) gm/dL Hct 40.7 (39.0-51.0) % MCV 89.6 (80.0-100.0) fL MCH 29.3 (27.0-34.0) pg MCHC 32.8 (32.0-36.0) % RDW 14.9 (11.6-17.2) % Plt Count 193 D (150-450) th/mm3 MPV 8.9 (7.0-11.0) fL Neut % (Auto) 77.8 H (16.0-70.0) % Lymph % (Auto) 9.1 (9.0-44.0) % Hoke % (Auto) 10.6 H (0.0-8.0) % Eos % (Auto) 1.9 (0.0-4.0) % Baso % (Auto) 0.6 (0.0-2.0) % Neut # (Auto) 7.7 (1.8-7.7) th/mm3 Lymph # (Auto) 0.9 L (1.0-4.8) th/mm3 Hoke # (Auto) 1.1 H (0.0-0.9) th/mm3 Eos # (Auto) 0.2 (0.0-0.4) th/mm3 Baso # (Auto) 0.1 (0.0-0.2) th/mm3 WBC Differential . Differential Comment Auto diff final PT 10.5 (9.8-11.6) sec INR 1.0 Ratio APTT 25.4 (24.3-30.1) sec Sodium 141 (136-145) meq/L Potassium 4.3 (3.5-5.1) meq/L Chloride 96 L (98-107) meq/L Carbon Dioxide 37.6 H (21.0-32.0) meq/L Anion Gap 7 (5-15) meq/L BUN 25 H (7-18) mg/dL Creatinine 1.68 H (0.60-1.30) mg/dL Estimated GFR 42 L (>89) mL/min Random Glucose 105 (74-106) mg/dL Calcium 9.2 (8.5-10.1) mg/dL Magnesium (1.5-2.5) mg/dL Total Bilirubin 0.8 (0.2-1.0) mg/dL AST 30 (15-37) U/L ALT 17 (12-78) U/L Alkaline Phosphatase 85 (45-117) U/L Troponin I 0.09 H (0.02-0.05) ng/mL Total Protein 7.8 D (6.4-8.2) g/dL Albumin 3.2 L (3.4-5.0) g/dL 06/03/18 06/03/18 Range/Units 12:45 17:17 WBC (4.0-11.0) th/mm3 RBC (4.50-5.90) mil/mm3 Hgb (13.0-17.0) gm/dL Hct (39.0-51.0) % MCV (80.0-100.0) fL MCH (27.0-34.0) pg MCHC (32.0-36.0) % RDW (11.6-17.2) % Plt Count (150-450) th/mm3 MPV (7.0-11.0) fL Neut % (Auto) (16.0-70.0) % Lymph % (Auto) (9.0-44.0) % Hoke % (Auto) (0.0-8.0) % Eos % (Auto) (0.0-4.0) % Baso % (Auto) (0.0-2.0) % Neut # (Auto) (1.8-7.7) th/mm3 Lymph # (Auto) (1.0-4.8) th/mm3 Hoke # (Auto) (0.0-0.9) th/mm3 Eos # (Auto) (0.0-0.4) th/mm3 Baso # (Auto) (0.0-0.2) th/mm3 WBC Differential Differential Comment PT (9.8-11.6) sec INR Ratio APTT (24.3-30.1) sec Sodium (136-145) meq/L Potassium (3.5-5.1) meq/L Chloride (98-107) meq/L Carbon Dioxide (21.0-32.0) meq/L Anion Gap (5-15) meq/L BUN (7-18) mg/dL Creatinine (0.60-1.30) mg/dL Estimated GFR (>89) mL/min Random Glucose (74-106) mg/dL Calcium (8.5-10.1) mg/dL Magnesium 2.3 2.5 (1.5-2.5) mg/dL Total Bilirubin (0.2-1.0) mg/dL AST (15-37) U/L ALT (12-78) U/L Alkaline Phosphatase (45-117) U/L Troponin I (0.02-0.05) ng/mL Total Protein (6.4-8.2) g/dL Albumin (3.4-5.0) g/dL Imaging Data Radiologist's impression: Chest X-Ray 06/03/18 12:54 CONCLUSION: Cardiomegaly and findings of vascular congestion without overt failure. The findings are improved when compared with the prior exam. ECG Data EKG Prior to Arrival: Yes Attestation: I personally reviewed and interpreted this ECG as follows: Interpretation: paced rhythm going into Vtach Discharge Plan Discharge Disposition Patient Disposition: 30 Still Patient Discharge Condition Condition: Stable Discharge Details Diagnosis: Sustained ventricular tachycardia, Chest pain, Defibrillator discharge Physicians Team ED Provider: Neha Merida Primary Care Provider: UNKNOWN, Attending Provider: Radha Oliva Other Providers: Neli Grider ; Rhiannon Herr Discharge Interventions Interventions: ED Discharge Assessment Last Done: 06/03/18 14:02 Vital Signs Last Done: 06/03/18 12:50 Status ED Status: Left Department Discharge Information Discharge Date/Time: 06/03/18 14:03
[2018-06-03 13:30] LABS: Activated Partial Thrombo Time 25.4 sec (24.3-30.1); Prothrombin Time 10.5 sec (9.8-11.6)
[2018-06-03 13:38] LABS: Alkaline Phosphatase 85 U/L (45-117); Total Protein 7.8 g/dL (6.4-8.2); Troponin I 0.09 ng/mL (0.02-0.05)
[2018-06-03 13:40] LABS: Alanine Aminotransferase 17 U/L (12-78); Albumin 3.2 g/dL (3.4-5.0); Anion Gap 7 meq/L (5-15); Aspartate Aminotransferase 30 U/L (15-37); Blood Urea Nitrogen 25 mg/dL (7-18); Calcium 9.2 mg/dL (8.5-10.1); Carbon Dioxide 37.6 meq/L (21.0-32.0); Chloride 96 meq/L (98-107); Glomerular Filtration Rate 42 mL/min (>89); Glucose,Random 105 mg/dL (74-106); Potassium 4.3 meq/L (3.5-5.1); Sodium 141 meq/L (136-145)
--- NOTE | 2018-06-03 14:38 | XR ---
EXAM DATE: 06/03/2018 2:35 PM EDT AGE/SEX: 57 years / Male INDICATIONS: Chest pain. CLINICAL DATA: This is the patient's subsequent encounter. Patient reports that signs and symptoms h ave been present for 1 day and indicates a pain score of 5/10. MEDICAL/SURGICAL HISTORY: . Myocardial infarction. Hypertension. Chronic obstructive pulmonary disease. V-tach. . Pacemaker. CABG. Cardiac stent. Cardiac catheterization COMPARISON: [facility] [place], CHEST 1V SINGLE AP, 05/29/2018. . FINDINGS: The cardiac silhouette is enlarged in transverse diameter. Median sternotomy wires are present. A biv entricular defibrillator is in place via a left sided approach. There is elevation of the right hemid iaphragm. There is prominence of the central pulmonary vasculature with indistinct vascular margins compatible with vascular congestion but no evidence of overt failure. A small right sided effusion is present. CONCLUSION: Cardiomegaly and findings of vascular congestion without overt failure. The findings are improved whe n compared with the prior exam. Electronically signed by: Hernan Buchanan MD 06/03/2018 2:37 PM EDT
--- NOTE | 2018-06-03 14:49 | P.HPCC ---
History of Present Illness Primary Care Physician: UNKNOWN Chief Complaint: Recurrent VTAC History of Present Illness: Patient is a 57-year-old male with past medical history of recurrent ventricular tachycardia, history of multiple ablation procedures in the past, last ablation performed by Dr. Grider on of last week, AICD replacement last week, CAD status post CABG 2, COPD who was brought to the emergency department by EMS due to defibrillator firing. He was discharged home only yesterday. He had an episode of syncope today, woke up with the defibrillator firing. He presented to the ED with recurrent defibrillator firing and chest pain. EKG in the ED confirmed ventricular tachycardia. Dr. Ac in ED discussed with Dr. Doan who happened to be in the ED. A magnet was placed over the AICD to deactivate and patient was given multiple IV pushes of metoprolol until V. tach was controlled. Critical care medicine consulted for admission. I advised 150 mg amiodarone bolus followed by amiodarone infusion per protocol and holding p.o. amiodarone. In addition to metoprolol patient also received and lidocaine IVP in the ED I evaluated the patient in the CVICU. He appears in moderate distress and nervous. I will continue amiodarone infusion for now. Coreg 12.5 mg now and 6.25 mg every 12 ordered. I have discussed with Dr. Grider who will see the patient soon. The [employer] rep did interrogate the AICD - Diagnosis (1) Sustained ventricular tachycardia (2) Chest pain (3) Defibrillator discharge Inpatient Certification: I certify that the inpatient services were ordered in accordance with Medicare regulations governing the order. This includes certification that hospital inpatient services are reasonable and necessary and in the case of services not specified as inpatient-only under 42 CFR 419.22(n), that they are appropriately provided as inpatient services in accordance to with the 2-midnight benchmark under 43 CFR 412.3(e) Estimated Total Length of Stay (Days): 5 Plans for Post Hospital Care: Not yet determined [facility] - History History Provided By: Patient - Medical History Medical History: Medical History (Last Reviewed 06/03/18 @ 12:17 by Jax Obregon RN) AICD discharge CAD (coronary artery disease) CHF (congestive heart failure) COPD (chronic obstructive pulmonary disease) Chronic renal failure Hypertension Pacemaker - Surgical History Surgical History: Surgical History (Last Reviewed 06/03/18 @ 12:17 by Jax Obregon RN) AICD (automatic cardioverter/defibrillator) present S/P CABG x 2 S/P CABG x 4 - Tobacco History Second Hand Smoke Exposure: No Smoking Status: Former smoker Tobacco Type: Cigarettes - Alcohol History How Often Do You Have a Drink Containing Alcohol: Never - Substance Use History Substance History: No History of Abuse - Travel History Recent Travel in the [place] Within the Last 8 Weeks: No Recent Travel Out of the Country Within the Last 8 Weeks: No - Immunization History Tetanus Immunization: Unsure Hx Influenza Vaccine This Season: Yes Medications and Allergies Active Medications: Active Medications Al Hydroxide/Mg Hydroxide (Milk Of Merline Fu) 30 ml PO Q12H PRN PRN Reason: Mild Constipation Albuterol (Duoneb Neb (Prn)) 1 ampul NEB Q2HR NEB PRN PRN Reason: WHEEZING Aspirin (Aspirin Chew) 81 mg PO DAILY ANTHONY Atorvastatin Calcium (Lipitor) 80 mg PO DAILY ANTHONY Bisacodyl (Dulcolax Supp) 10 mg RECTAL DAILY PRN PRN Reason: SEVERE CONSITIPATION Carvedilol (Coreg) 6.25 mg PO BID ANTHONY Chlorhexidine Gluconate (Chlorhexidine 2% Cloth) 3 pack TOPICAL DAILY@0400 ANTHONY Stop: 06/09/18 03:59 Chlorhexidine Gluconate (Chlorhexidine 2% Cloth) 3 pack TOPICAL DAILY@0400 PRN PRN Reason: Extra cloth needed Stop: 06/09/18 03:59 Clopidogrel Bisulfate (Plavix) 75 mg PO DAILY ANTHONY Famotidine (Pepcid Pf Inj) 20 mg IV.PUSH Q12HR ANTHONY Amiodarone HCl 450 mg/ (Dextrose) 250 mls @ 33.33 mls/hr IV.CONT TITRATE PRN; Protocol PRN Reason: Per Protocol Potassium Chloride/Sodium Chloride (Ns + Kcl 20 Meq Inj) 1,000 mls @ 50 mls/hr IV.CONT .Q20H ANTHONY Magnesium Sulfate Inj 4 gm/ (Sodium Chloride) 100 mls @ 50 mls/hr IV.SIG UNSCH PRN PRN Reason: For Magnesium 0.9 - 1.1 mg/dL Potassium Chloride (Kcl 40 Meq Premix Inj) 40 meq in 100 mls @ 25 mls/hr IV.SIG Q2H PRN PRN Reason: For Potassium 2.8 - 3.2 mEq/L Potassium Chloride (Kcl 20 Meq Premix Inj) 20 meq in 100 mls @ 50 mls/hr IV.SIG Q2H PRN PRN Reason: For Potassium 3.3 - 3.5 mEq/L Potassium Chloride (Kcl 20 Meq Premix Inj) 20 meq in 100 mls @ 50 mls/hr IV.SIG Q2H PRN PRN Reason: For Potassium 2.8 - 3.2 mEq/L Potassium Phosphate 30 mmol/ (Sodium Chloride) 260 mls @ 42 mls/hr IV.SIG UNSCH PRN PRN Reason: SEE LABEL COMMENTS Sodium Phosphate 30 mmol/ (Sodium Chloride) 260 mls @ 42 mls/hr IV.SIG UNSCH PRN PRN Reason: For Phosphorus < 2.5 mg/dL Magnesium Sulfate Inj 2 gm/ (Sodium Chloride) 100 mls @ 50 mls/hr IV.SIG UNSCH PRN PRN Reason: For Magnesium 1.2 - 1.6 mg/dL Potassium Chloride (Kcl 40 Meq Premix Inj) 40 meq in 100 mls @ 25 mls/hr IV.SIG UNSCH PRN PRN Reason: For Potassium 3.3 - 3.5 mEq/L Lactulose (Lactulose Liq) 30 ml PO DAILY PRN PRN Reason: SEVERE CONSITIPATION Magnesium Oxide (Mag-Ox) 800 mg PO UNSCH PRN PRN Reason: For Magnesium 1.2 - 1.6 mg/dL Metoprolol Tartrate (Lopressor Inj) 5 mg IV.PUSH Q5M PRN PRN Reason: tachycardia Last Admin: 06/03/18 12:45 Dose: 5 mg Potassium Bicarb/Potassium Chloride (K-Lyte Cl Eff) 50 meq PO UNSCH PRN PRN Reason: For Potassium 3.3 - 3.5 mEq/L Potassium Phosphate (K-Phos Original) 2,000 mg PO Q4H PRN PRN Reason: Phosphorus Less Than 2.5 mg/dL Potassium Phosphate (K-Phos Original) 2,000 mg PO UNSCH PRN PRN Reason: SEE LABEL COMMENTS Senna/Docusate Sodium (Madelaine-Colace) 1 tab PO BID ANTHONY Sennosides (Senokot) 17.2 mg PO Q12H PRN PRN Reason: Moderate Constipation Sodium Chloride (Ns Flush) 2 ml IV.FLUSH UNSCH PRN PRN Reason: FLUSH AFTER USING IV ACCESS Last Admin: 06/03/18 13:16 Dose: 2 ml Sodium Chloride (Ns Flush) 2 ml IV.FLUSH BID ANTHONY Sodium Chloride (Ns Flush) 2 ml IV.FLUSH PRN PRN PRN Reason: FLUSH AFTER USING IV ACCESS Allergies Allergy/AdvReac Type Severity Reaction Status Date / Time oxycodone Allergy Severe RASH Verified 07/13/17 07:20 Sulfa (Sulfonamide Allergy Severe HIVES Verified 07/13/17 07:20 Antibiotics) lorazepam AdvReac Severe Confusion Verified 07/13/17 10:30 Home Medications Medication Instructions Recorded Confirmed Type Aspirin Low Dose 81 mg PO DAILY 05/24/18 05/24/18 History albuterol sulfate [ProAir HFA] 1 puff INHALATION Q6H PRN 05/24/18 05/24/18 History allopurinol 300 mg PO DAILY 05/24/18 05/24/18 History alprazolam [Xanax] 0.25 mg PO TID PRN 05/24/18 05/24/18 History amiodarone 200 mg PO DAILY 05/24/18 05/24/18 History atorvastatin 80 mg PO DAILY 05/24/18 05/24/18 History bumetanide 2 mg PO DAILY 05/24/18 05/24/18 History clopidogrel [Plavix] 75 mg PO DAILY 05/24/18 05/24/18 History fluticasone-vilanterol [Breo 1 inh INHALATION DAILY 05/24/18 05/24/18 History Ellipta] formoterol fumarate 12 mcg INHALATION PRN PRN 05/24/18 05/24/18 History ipratropium bromide 0.5 mg INHALATION Q8H PRN 05/24/18 05/24/18 History metolazone 5 mg PO DAILY 05/24/18 05/24/18 History nitroglycerin [Nitrostat] 0.4 mg SUBLINGUAL Q5-15M PRN 05/24/18 05/24/18 History potassium chloride 20 meq PO DAILY 05/24/18 05/24/18 History pregabalin [Lyrica] 50 mg PO TID 05/24/18 05/24/18 History ranitidine HCl 75 mg PO DAILY 08/18/18 08/18/18 History tamsulosin 0.4 mg PO BID 05/24/18 05/24/18 History tramadol 50 mg PO TID 05/24/18 05/24/18 History Results - Labs CBC & Chem 7: 06/03/18 12:45 06/03/18 12:45 Labs: Short CBC 06/03/18 Range/Units 12:45 WBC 9.9 (4.0-11.0) th/mm3 Hgb 13.3 (13.0-17.0) gm/dL Hct 40.7 (39.0-51.0) % Plt Count 193 D (150-450) th/mm3 BMP 06/03/18 12:45 Sodium 141 Potassium 4.3 Chloride 96 L Carbon Dioxide 37.6 H BUN 25 H Creatinine 1.68 H Calcium 9.2 Cardiac Enzymes 06/03/18 Range/Units 12:45 Troponin I 0.09 H (0.02-0.05) ng/mL Liver Function 06/03/18 Range/Units 12:45 Total Bilirubin 0.8 (0.2-1.0) mg/dL AST 30 (15-37) U/L ALT 17 (12-78) U/L Alkaline Phosphatase 85 (45-117) U/L Albumin 3.2 L (3.4-5.0) g/dL - Imaging Impressions Chest X-Ray 06/03/18 12:54 CONCLUSION: Cardiomegaly and findings of vascular congestion without overt failure. The findings are improved when compared with the prior exam. Exam Vital signs: Vital Signs 06/03/18 12:13 06/03/18 12:21 06/03/18 12:36 Temperature 98.4 F Pulse Rate 82 66 Respiratory Rate 20 20 Blood Pressure 129/80 139/86 Pulse Oximetry 94 L 97 06/03/18 12:41 06/03/18 12:46 06/03/18 12:50 Temperature Pulse Rate 65 61 52 L Respiratory Rate 18 18 19 Blood Pressure 131/78 126/78 121/74 Pulse Oximetry 99 95 97 06/03/18 13:00 06/03/18 13:45 06/03/18 14:00 Temperature 98.3 F Pulse Rate 61 59 L Respiratory Rate 19 22 Blood Pressure 129/82 109/68 Pulse Oximetry 97 92 L 90 L Intake & Output 06/02/18 06/03/18 06/03/18 18:59 06:59 18:59 Weight 107.822 kg Narrative: GENERAL: This is a well-nourished, well-developed patient, in moderate distress. SKIN: Significant ecchymosis over the left upper chest where the recent AICD was inserted HEAD: Atraumatic. Normocephalic. No temporal or scalp tenderness. EYES: Pupils equal round and reactive. Extraocular motions intact. ENT: Nose without bleeding, purulent drainage or septal hematoma. Airway patent. NECK: Trachea midline. No JVD or lymphadenopathy. Supple, nontender, no meningeal signs. CARDIOVASCULAR: Currently in sinus rhythm with wide QRS. Left upper chest with AICD in place with surrounding ecchymosis RESPIRATORY: Clear to auscultation. Breath sounds equal bilaterally. No wheezes , rales, or rhonchi. GASTROINTESTINAL: Abdomen soft, non-tender, nondistended. No hepato-splenomegaly , or palpable masses. No guarding. MUSCULOSKELETAL: Extremities without clubbing, cyanosis, or edema. No calf tenderness. NEUROLOGICAL: Awake and alert. Motor and sensory grossly within normal limits. Normal speech. Septic Shock Reassessment Septic shock perfusion: reassessment completed Caprini VTE Risk Assessment Caprini VTE Risk Assessment: No/Low Risk (score <= 1) Caprini Risk Assessment Model: Point Value = 1 Point Value = 2 Point Value = 3 Point Value = 5 Age 41-60 Minor surgery BMI > 25 kg/m2 Swollen legs Varicose veins or History of unexplained or recurrent spontaneous Oral contraceptives or hormone replacement Sepsis (< 1 month) Serious lung disease, including pneumonia (< 1 month) Abnormal pulmonary function Acute myocardial infarction Congestive heart failure (< 1 month) History of inflammatory bowel disease Medical patient at bed rest Age 61-74 Arthroscopic surgery Major open surgery (> 45 min) Laparoscopic surgery (> 45 min) Malignancy Confined to bed (> 72 hours) Immobilizing plaster cast Central venous access Age >= 75 History of VTE Family history of VTE Factor V Leiden Prothrombin [id number] Lupus anticoagulant Anticardiolipin antibodies Elevated serum homocysteine Heparin-induced thrombocytopenia Other congenital or acquired thrombophilia Stroke (< 1 month) Elective arthroplasty Hip, pelvis, or leg fracture Acute spinal cord injury (< 1 month) Prophylaxis Regimen: Total Risk Factor Score Risk Level Prophylaxis Regimen 0-1 Low Early ambulation 2 Moderate Order ONE of the following: *Sequential Compression Device (SCD) *Heparin 5000 units SQ BID 3-4 Higher Order ONE of the following medications: *Heparin 5000 units SQ TID *Enoxaparin/Lovenox 40 mg SQ daily (WT < 150 kg, CrCl > 30 mL/min) *Enoxaparin/Lovenox 30 mg SQ daily (WT < 150 kg, CrCl > 10-29 mL/min) *Enoxaparin/Lovenox 30 mg SQ BID (WT < 150 kg, CrCl > 30 mL/min) AND/OR *Sequential Compression Device (SCD) 5 or more Highest Order ONE of the following medications: *Heparin 5000 units SQ TID (Preferred with Epidurals) *Enoxaparin/Lovenox 40 mg SQ daily (WT < 150 kg, CrCl > 30 mL/min) *Enoxaparin/Lovenox 30 mg SQ daily (WT < 150 kg, CrCl > 10-29 mL/min) *Enoxaparin/Lovenox 30 mg SQ BID (WT < 150 kg, CrCl > 30 mL/min) AND *Sequential Compression Device (SCD) Assessment and Plan - Problem List (1) Sustained ventricular tachycardia Code(s): I47.2 - Ventricular tachycardia Status: Acute (2) Chest pain Code(s): R07.9 - Chest pain, unspecified Status: Acute (3) Defibrillator discharge Code(s): Z45.02 - Encounter for adjustment and management of automatic implantable cardiac defibrillator Status: Acute - Assessment and Plan Plan: NEURO: -Morphine as needed for pain -Hold home medication tramadol and pregabalin at this time RESP: History of COPD -DuoNeb every 6 hours as needed -Continue home inhalers CV: Sustained ventricular tachycardia with recurrent defibrillator firing Recent ventricular tachycardia ablation 05/29/18 -Received multiple doses of IV metoprolol which eventually terminated the V. tach -Amiodarone 150 mg loading dose and infusion per protocol -Coreg 12.5 mg p.o. 1 followed by 6.25 mg twice daily -Consult EP Dr. Grider, I discussed with him -Check serial troponins -Keep potassium more than 4, keep magnesium more than 2 -Continue aspirin plavix GI: -Cardiac diet, IV famotidine : -Monitor renal function closely. ID: -No indication for antibiotics at this time HEME: -Monitor CBC, coags ENDO: -Electrolyte replacement per protocol -Sliding scale insulin PROPH: -Bilateral lower extremity SCDs. Lovenox/famotidine LINES: -Utilize peripheral IVs, central line if needed CC time 35 min Code Status: Full Discussed Condition With: Dr. Grider
[2018-06-03] MEDS ORDERED: Morphine Sulfate Inj 2 MG/ML Vial IV.PUSH PRN (15:16)
[2018-06-03] MEDS: Morphine Sulfate Inj 2 MG/ML Vial IV.PUSH PRN (20:08)
[2018-06-03] MEDS ORDERED: Morphine Sulfate Inj 2 MG/ML Vial IV.PUSH ONE (20:15)
[2018-06-03] MEDS ORDERED: Carvedilol 6.25 MG Tablet PO SCH (21:00)
[2018-06-03] MEDS: Famotidine PF Inj 20 MG/2 ML Vial IV.PUSH SCH (21:29)
[2018-06-03] MEDS: Senna/Docusate Sodium 8.6/50 MG Tablet PO SCH (21:31)
[2018-06-03] MEDS: Amiodarone 200 MG Tablet PO SCH (23:08)
[2018-06-04] MEDS: ALPRAZolam 0.5 MG Tablet PO PRN ×2 (00:13→22:34)
[2018-06-04] MEDS: Temazepam 15 MG Capsule PO PRN (00:13)
[2018-06-04] MEDS: Morphine Sulfate Inj 2 MG/ML Vial IV.PUSH PRN ×3 (02:48→22:32)
[2018-06-04] MEDS ORDERED: Chlorhexidine Gluconate 2% 1 Pack (2 Cloths) TOPICAL PRN (04:00)
[2018-06-04 04:32] LABS: Baso # (Auto) 0.1 th/mm3 (0.0-0.2); Baso % (Auto) 0.7 % (0.0-2.0); Eos # (Auto) 0.2 th/mm3 (0.0-0.4); Eos % (Auto) 2.1 % (0.0-4.0); Hematocrit 35.7 % (39.0-51.0); Hemoglobin 11.9 gm/dL (13.0-17.0); Lymph # (Auto) 0.8 th/mm3 (1.0-4.8); Lymph % (Auto) 9.8 % (9.0-44.0); Mean Corpuscular HGB Conc 33.4 % (32.0-36.0); Mean Corpuscular Hemoglobin 29.7 pg (27.0-34.0); Mean Corpuscular Volume 88.8 fL (80.0-100.0); Mean Platelet Volume 8.4 fL (7.0-11.0); Mono # (Auto) 0.9 th/mm3 (0.0-0.9); Neut # (Auto) 6.3 th/mm3 (1.8-7.7); Neut % (Auto) 76.4 % (16.0-70.0); Platelet Count 177 th/mm3 (150-450); Red Blood Count 4.01 mil/mm3 (4.50-5.90); Red Cell Distribution Width 14.9 % (11.6-17.2); White Blood Count 8.3 th/mm3 (4.0-11.0)
[2018-06-04 04:41] LABS: INR 1.1 Ratio; Prothrombin Time 10.9 sec (9.8-11.6)
[2018-06-04 05:02] LABS: Albumin 2.8 g/dL (3.4-5.0); Anion Gap 6 meq/L (5-15); Aspartate Aminotransferase 13 U/L (15-37); Blood Urea Nitrogen 26 mg/dL (7-18); Calcium 8.5 mg/dL (8.5-10.1); Carbon Dioxide 35.3 meq/L (21.0-32.0); Chloride 100 meq/L (98-107); Glomerular Filtration Rate 47 mL/min (>89); Glucose,Random 91 mg/dL (74-106); Magnesium 2.3 mg/dL (1.5-2.5); Potassium 3.9 meq/L (3.5-5.1); Sodium 141 meq/L (136-145)
[2018-06-04 05:03] LABS: Alanine Aminotransferase 15 U/L (12-78)
[2018-06-04 05:05] LABS: Alkaline Phosphatase 75 U/L (45-117); Total Protein 6.4 g/dL (6.4-8.2)
[2018-06-04] MEDS ORDERED: Lidocaine/D5W 2000 mg/500 mL 2,000 MG/500 ML BAG ONE (05:38)
[2018-06-04] MEDS ORDERED: Lidocaine 2% 100 MG/5 ML Syringe IV.PUSH ONE (06:00)
[2018-06-04] MEDS: Lidocaine/D5W 2000 mg/500 mL 2,000 MG/500 ML BAG IV.CONT SCH (06:32)
[2018-06-04] MEDS: Chlorhexidine Gluconate 2% 1 Pack (2 Cloths) TOPICAL SCH (06:34)
--- NOTE | 2018-06-04 07:57 | P.PNCC ---
Subjective Subjective Remarks/Hospital Course: Patient is a 57-year-old male with past medical history of recurrent ventricular tachycardia, history of multiple ablation procedures in the past, last ablation performed by Dr. Grider on of last week, AICD replacement last week, CAD status post CABG 2, COPD who was brought to the emergency department by EMS due to defibrillator firing. He was discharged home only yesterday. He had an episode of syncope today, woke up with the defibrillator firing. He presented to the ED with recurrent defibrillator firing and chest pain. EKG in the ED confirmed ventricular tachycardia. Dr. Ac in ED discussed with Dr. Doan who happened to be in the ED. A magnet was placed over the AICD to deactivate and patient was given multiple IV pushes of metoprolol until V. tach was controlled. Critical care medicine consulted for admission. I advised 150 mg amiodarone bolus followed by amiodarone infusion per protocol and holding p.o. amiodarone. In addition to metoprolol patient also received and lidocaine IVP in the ED I evaluated the patient in the CVICU. He appears in moderate distress and nervous. I will continue amiodarone infusion for now. Coreg 12.5 mg now and 6.25 mg every 12 ordered. I have discussed with Dr. Grider who will see the patient soon. The [employer] rep did interrogate the AICD SUBJ 06/04/18: Seen by Dr. Grider EP yesterday. He added mexiletine 200 mg p.o. 3 times daily. Coreg was started earlier. Had been weaned off the amiodarone infusion yesterday. Overnight patient developed ventricular tachycardia again 4 and was shocked several times. Received IV push lidocaine 2 and currently is on lidocaine infusion. Last episode of ventricular tachycardia around [address] Grider Objective Vital Signs / I&O: Vital Signs 06/03/18 12:13 06/03/18 12:21 06/03/18 12:36 Temperature 98.4 F Pulse Rate 82 66 Respiratory Rate 20 20 Blood Pressure 129/80 139/86 Pulse Oximetry 94 L 97 06/03/18 12:41 06/03/18 12:46 06/03/18 12:50 Temperature Pulse Rate 65 61 52 L Respiratory Rate 18 18 19 Blood Pressure 131/78 126/78 121/74 Pulse Oximetry 99 95 97 08/28/18 13:00 06/03/18 13:45 06/03/18 14:00 Temperature 98.3 F Pulse Rate 61 59 L Respiratory Rate 19 22 Blood Pressure 129/82 109/68 Pulse Oximetry 97 92 L 90 L 06/03/18 15:00 06/03/18 16:00 06/03/18 16:31 Temperature Pulse Rate 59 L 59 L 59 L Respiratory Rate 20 19 Blood Pressure 123/73 102/59 L Pulse Oximetry 93 L 94 L 90 L 06/03/18 16:32 06/03/18 20:00 06/03/18 20:17 Temperature 98.1 F Pulse Rate 60 59 L Respiratory Rate 16 20 Blood Pressure 92/64 L Pulse Oximetry 92 L 06/03/18 20:31 06/03/18 22:43 06/04/18 00:00 Temperature Pulse Rate 75 59 L Respiratory Rate 16 Blood Pressure 101/62 Pulse Oximetry 93 L 95 93 L 06/04/18 04:00 06/04/18 05:00 06/04/18 05:48 Temperature 97.8 F Pulse Rate 59 L Respiratory Rate 16 16 Blood Pressure 105/74 Pulse Oximetry 98 97 06/04/18 07:41 06/04/18 07:45 Temperature 98.3 F Pulse Rate 59 L 59 L Respiratory Rate 19 18 Blood Pressure 100/82 103/66 Pulse Oximetry 97 97 Intake & Output 06/03/18 06/04/18 06/04/18 18:59 06:59 18:59 Intake Total 50 / 50 Output Total 1000 / 1000 700 / 700 Balance -950 / -950 -700 / -700 Weight 107.822 kg Intake: Oral 50 / 50 Output: Urine Amount (Catheter) 1000 / 1000 700 / 700 Indwelling Urethral Catheter 1000 / 1000 700 / 700 Other: Date of Last Bowel Movement 06/02/18 06/03/18 06/03/18 Result Diagrams: 06/04/18 04:15 06/04/18 04:15 Objective Remarks: GENERAL: This is a well-nourished, well-developed patient, in moderate distress , having chest pain. SKIN: Significant ecchymosis over the left upper chest where the recent AICD was inserted HEAD: Atraumatic. Normocephalic. No temporal or scalp tenderness. EYES: Pupils equal round and reactive. Extraocular motions intact. ENT: Nose without bleeding, purulent drainage or septal hematoma. Airway patent. NECK: Trachea midline. No JVD or lymphadenopathy. Supple, nontender, no meningeal signs. CARDIOVASCULAR: Currently in sinus rhythm with wide QRS. Left upper chest with AICD in place with surrounding ecchymosis. Central chest wall pain on palpation RESPIRATORY: Clear to auscultation. Breath sounds equal bilaterally. No wheezes , rales, or rhonchi. GASTROINTESTINAL: Abdomen soft, non-tender, nondistended. No hepato-splenomegaly , or palpable masses. No guarding. MUSCULOSKELETAL: Extremities without clubbing, cyanosis, or edema. No calf tenderness. NEUROLOGICAL: Awake and alert. Motor and sensory grossly within normal limits. Normal speech. Assessment and Plan - Problem List (1) Sustained ventricular tachycardia Code(s): I47.2 - Ventricular tachycardia Status: Acute (2) Chest pain Code(s): R07.9 - Chest pain, unspecified Status: Acute (3) Defibrillator discharge Code(s): Z45.02 - Encounter for adjustment and management of automatic implantable cardiac defibrillator Status: Acute - Assessment and Plan Plan: NEURO: -Morphine as needed for pain -Hold home medication tramadol and pregabalin at this time RESP: History of COPD -DuoNeb every 6 hours as needed -Continue home inhalers CV: Sustained ventricular tachycardia with recurrent defibrillator firing Recent ventricular tachycardia ablation 05/29/18 -Received multiple doses of IV metoprolol which eventually terminated the V. tach -Amiodarone 150 mg loading dose and infusion per protocol-discontinued yesterday evening -Continue amiodarone 200 mg twice daily -Coreg 12.5 mg p.o. 1 followed by 6.25 mg twice daily. Increase to 12.5 mg twice daily -Received IV lidocaine bolus 2 overnight currently on a lidocaine infusion -Mexiletine 200 mg 3 times daily added by Dr. Grider- increase to 400 TID and wean to DC Lidocaine -Consult EP Dr. Grider, I discussed with him -Keep potassium more than 4, keep magnesium more than 2.5, give 1 g now -Continue aspirin plavix -We will discuss with EP regarding other options -Discussed with EP regarding antitachycardia pacing, Dr. Grider will contact the [employer] rep GI: -Cardiac diet, IV famotidine : -Monitor renal function closely. ID: -No indication for antibiotics at this time HEME: -Monitor CBC, coags ENDO: -Electrolyte replacement per protocol -Sliding scale insulin PROPH: -Bilateral lower extremity SCDs. Lovenox/famotidine LINES: -Utilize peripheral IVs, central line if needed CC time 35 min Code Status: Full (2) Chest pain Qualifiers: Chest pain type: unspecified Qualified Code(s): R07.9 - Chest pain, unspecified
[2018-06-04] MEDS ORDERED: Mag Sulf 1 gm/100 ml Premix 100 ML IV.SIG ONE (08:45)
[2018-06-04] MEDS: Carvedilol 6.25 MG Tablet PO SCH ×2 (09:50→22:12)
[2018-06-04] MEDS: Senna/Docusate Sodium 8.6/50 MG Tablet PO SCH ×2 (09:51→22:17)
[2018-06-04] MEDS: Famotidine PF Inj 20 MG/2 ML Vial IV.PUSH SCH ×2 (09:51→22:13)
[2018-06-04] MEDS: Enoxaparin Inj 40 MG/0.4 ML Syringe SQ SCH (09:52)
[2018-06-04] MEDS: Amiodarone 200 MG Tablet PO SCH ×2 (09:54→22:11)
[2018-06-04] MEDS ORDERED: Glycopyrrolate Inj 1 MG/5 ML Syringe IV.PUSH ONE (11:59)
[2018-06-04] MEDS ORDERED: Lidocaine PF 1% Inj 5 ML Syringe INFILTRATN ONE (11:59)
[2018-06-04] MEDS ORDERED: Neostigmine Inj 5 MG/5 ML Syringe IV.PUSH ONE (11:59)
[2018-06-04] MEDS ORDERED: Phenylephrine/NS 1000 MCG/10ML Syringe IV.PUSH ONE (11:59)
[2018-06-04] MEDS ORDERED: Ketamine Inj 500 MG/10 ML Vial ONE (17:42)
[2018-06-04] MEDS ORDERED: Heparin/NS PF Inj 500 ML ONE (17:45)
[2018-06-04] MEDS ORDERED: Sodium Chlor 0.9% Inj 250 ML ONE (17:46)
[2018-06-04] MEDS ORDERED: Heparin 10,000 UNITS/10 ML Vial (for IV use) ONE ×2 (18:23→18:30)
[2018-06-04] MEDS ORDERED: Heparin/NS PF Inj 1,000 ML ONE (19:14)
[2018-06-04] MEDS ORDERED: Protamine Sulfate Inj 50 MG/5 ML Vial ONE (19:50)
--- NOTE | 2018-06-04 20:41 | CATHPROC ---
[employer] HIS Report Study Information Study Number Admission Scheduled Start Study Start [id number] Jun 03 2018 1:14PM 06/04/2018 Jun 04 2018 4:14PM [place] Service Cardiac Catheterization Admit Source Facility Department Other [facility] - Drop Shipment Clerk Physician and Clinical Staff Initial Neli Carvajal Dispatcher Chief Coal Slurry Martha Severino,RT(R) TECH2 Additional Red Vergara Dispatcher Chief Coal SlurryKatty Saleh RN Other Anesthesia, LIGHTNING ROD ERECTOR Recorder Hailee Celaya RN Scrub Ronda Bragg RCIS Procedures Performed Procedure Location (Site) Vessel Name Ablation Procedure Cardioversion ICE CATHETER INSERT Fem Vein (right) Femoral Vein Impella Fem Art (left) Femoral Art RF Ablation LV Ventricle Wire insertion Fem Art (left) Femoral Art Equipment Time Manager Switch Description Size Mfg Part Number Used/Scraped PERCLOSE, PRO GLIDE CLOSER 18:18 [employer] FR 6 [id number] *[id number] Used DEVICE PERCLOSE, PRO GLIDE CLOSER 18:20 [employer] FR 6 [id number] *[id number] Used DEVICE PERCLOSE, PRO GLIDE CLOSER 19:56 [employer] FR 6 03880 *[id number] Used DEVICE 18:44 ABIOMED PUMPSET, IMPELLA 2.5 2.5 [id number] Used BIOSENSE WALTERS CATHETER, THERMOCOOL BI- 16:20 [id number] Used INC. DIRECTIONAL D-F BIOSENSE WALTERS CATHETER, THERMOCOOL NON- [id number] 18:58 Used INC. JAZ TC D-F *[id number] BIOSENSE WALTERS [id number] 16:19 SET, TUBING COOLFLOW * Used INC. *[id number] [employer]/ EP [id number] 16:17 KIT, TRANSDUCER / AFIB Used PACER *[id number] 16:17 BUNDLE-[employer]. KISHA CATHETER, JSN, QUAD BUNDLE FR 5 *[id number]- Used BUNDLE [id number] 16:17 BUNDLE-ST. KISHA CATHETER, JSN, QUAD BUNDLE FR 5 *[id number]- Used BUNDLE [id number] SET, COOL POINT TUBING 16:17 BUNDLE-ST. KISHA *[id number]- Used BUNDLE BUNDLE [id number] 20:15 CARDIVA MEDICAL VASCADE, FR6 CLOSURE SYSTEM FR 6\\7 Used *[id number] 20:15 CARD[employer]A MEDICAL VASCADE, FR6 CLOSURE SYSTEM FR 6\\7 Used *[id number] 20:15 CARD[employer]A MEDICAL VASCADE, FR6 CLOSURE SYSTEM FR 6\\7 Used *[id number] COVER, TRANSDUCER CABLE 612-113 16:17 [employer] Used ACUNAV *[id number] INTRODUCER SET, [id number] 18:13 COOK INC. FR 5 Used MICROPUNCTURE *[id number] SHEATH, FR14 RB 30CM [id number]-[id number] 18:24 COOK/NELSY FR 14 Used (IMPELLA ) -RB [id number] *[id number] [id number] *[id number] [id number] *[id number] 16:17 CORDIS/PACER SHEATH, FR10 JAKE 11CM FR 10 Used *[id number] [id number] 16:17 Cursogram BLANKET,WARM AIR CCL * Used *[id number] 16:17 Cursogram PACK, CCL CUSTOM * Used *[id number] 16:17 [employer] PACER SMITH, LIMB * 2530 *[id number] Used 16:20 Lono MEDICAL PRESSURE TUBING 48" 48" [id number] Used 16:22 Lono MEDICAL SHEATH, FR5.5 PRELUDE 11CM FR 5 [id number] Used [id number] 18:16 [employer]ono MEDICAL WIRE, 3MMJ .035 180CM 180CM Used *[id number] [id number] 18:51 NAMIC TUBING, HIGH PRESSURE 48" 48" Used *4090180 [id number] 18:28 NAMIC TUBING, HIGH PRESSURE 48" 48" Used *2382408 [id number] 16:17 NAMIC TUBING, HIGH PRESSURE 48" 48" Used *0080117 [id number] 16:17 NAMIC TUBING, HIGH PRESSURE 48" 48" Used *[id number] 471609 16:20 [employer]. K[employer] MEDICAL CATHETER, JSN, QUAD FR 5 Used *[id number] 16:17 [employer] KIS[employer] MEDICAL ELECTRODE KIT, JAZ X SURFACE * Used *[id number] 982354 16:21 [employer]. K[employer] MEDICAL SHEATH, EPS, FR6 FAST CATH FR 6 Used *7510163 515976 16:17 [employer]. K[employer] MEDICAL SHEATH, EPS, FR6 FAST CATH FR 6 Used *[id number] 16:17 [employer]. KIS[employer] MEDICAL SHEATH, EPS, FR7 FAST CATH FR 7 [id number] Used [id number] 16:17 [employer] MEDICAL SHEATH, EPS, FR8 FAST CATH FR 8 Used *[id number] CATHETER, ACUNAV FR10 ICE [id number] 18:52 SAMM FR 10 Used (SAMM) *[id number] [facility] PAD, ELECTROSURGICAL 16:17 * [id number] *[id number] Used SURGICAL GROUNDING (BLUE) History: Allergies Allergy Reaction Ativan Percocet RASH Sulfa HIVES Sulfa (Sulfonamide Antibiotics) HIVES lorazepam Confusion oxycodone RASH acetaminophen PT DENIES History: Risk Factors Hypertension Previous Heart Failure Yes Yes Prior CABG Yes Chronic Lung Disease Yes Labs Hgb (g/dl) Hct (%) WBC (l/cumm) Platelets (thousands) 11.60-17.00 35.00-51.00 4.00-11.00 150.00-450.00 11.0 35 8.3 177 Glucose (mg/dl) BUN (mg/dl) Creatinine (mg/dl) BUN:Creatinine (1:x) 74.00-106.00 7.00-18.00 0.50-1.30 10.00-20.00 91 26 1.5 17.3 Na (meq/l) K (meq/l) 136.00-145.00 3.50-5.10 141 3.9 INR (PTT:PT) 0.90-1.10 1.1 Medication Medication Total Dose (Bolus/Oral) Medication Total Dosage/Unit 1% XYLOCAINE 40 mL HEPARIN [id number] units PROTAMINE 40 mg Medications (Bolus/Oral) Medication Time Given Dosage/Unit Administered By Reason 1% XYLOCAINE 06/04/2018 5:55:58 PM 20 mL Neli Grider 20 mL 1% XYLOCAINE given in lab by Neli Grider in Right Groin via Subcutaneous. 1% XYLOCAINE 06/04/2018 5:59:56 PM 20 mL Red Perez 20 mL 1% XYLOCAINE given in lab by Red Perez in Left Groin via Subcutaneous. HEPARIN 06/04/2018 6:27:07 PM 5000 units Anesthesia, LIGHTNING ROD ERECTOR As per physicians verbal order 5000 units HEPARIN given in lab by Anesthesia, LIGHTNING ROD ERECTOR via Peripheral IV. Ordered by Neli Grider. Reas on: As per physicians verbal order. HEPARIN 06/04/2018 6:30:00 PM 4000 units Anesthesia, LIGHTNING ROD ERECTOR As per physicians verbal order 4000 units HEPARIN given in lab by Anesthesia, LIGHTNING ROD ERECTOR via Peripheral IV. Ordered by Neli Grider. Reas on: As per physicians verbal order. HEPARIN 06/04/2018 6:40:17 PM 3000 units Anesthesia, LIGHTNING ROD ERECTOR As per physicians verbal order 3000 units HEPARIN given in lab by Anesthesia, LIGHTNING ROD ERECTOR via Peripheral IV. Ordered by Neli Grider. Reas on: As per physicians verbal order. PROTAMINE 06/04/2018 7:56:15 PM 40 mg Anesthesia, LIGHTNING ROD ERECTOR As per physicians v erbal order 40 mg PROTAMINE given in lab by Anesthesia, LIGHTNING ROD ERECTOR via Peripheral IV. Ordered by Neli Grider. Reason: As per physicians verbal order. Medication (Drip) Medication Time Given Dosage/Unit Concentration/Unit Diluent (ml) Solution IV Solutions 06/04/2018 5:59:23 PM 0 mL (IV) NaCl .9 Patient arrived on IV Solutions in Left Antecubital via Peripheral IV. Pump/Drip Flow = 50 ml/hr usin g NaCl .9. w 20 KCL LIDOCAINE DRIP 06/04/2018 4:57:55 PM 1 mg/min 1 g 250 D5W Patient arrived on 1 mg/min LIDOCAINE DRIP in Left Antecubital via Peripheral IV. Pump/Drip Flow = 15 ml/hr using D5W with a concentration of 1 g in 250 ml. Initial Case Assessment Cardiovascular HR Rhythm NIBP Chest Pain 60 sr 144/78 0 Edema Present Skin color Skin Mild Normal Warm Dry Circulatory - Right Pulses Dorsalis Pedis Radial 1 1 Scale (0,1,2,3,4,d) Circulatory - Left Pulses Dorsalis Pedis Radial 1 1 Scale (0,1,2,3,4,d) Circulatory - Lower Extremities Color Lower Right Color Lower Left Normal Normal Neurological State Oriented to time-place- Alert Moves all extremities person Respiration - General Respiration Rate SpO2 (%) O2 (lpm) (B/min) 21 98 6 Final Case Assessment Cardiovascular HR 60 Edema Present Skin color Skin Mild Normal Warm Dry Circulatory - Right Pulses Dorsalis Pedis Radial 1 1 Scale (0,1,2,3,4,d) Circulatory - Left Pulses Dorsalis Pedis Radial 1 1 Scale (0,1,2,3,4,d) Circulatory - Lower Extremities Color Lower Right Color Lower Left Normal Normal Neurological State Lethargic Moves all extremities Respiration - General Respiration Rate SpO2 (%) O2 (lpm) (B/min) 20 100 4 Chronological Log Time Study Chronological Log 16:57:03 Patient arrived via Bed. 16:57:04 Patient Name, D.O.B, / Armband Verified By R.N. 16:57:04 Consent signed by the physician and the patient and verified by the Drop Shipment Clerk staff. 16:57:05 Pre-op and post- op instructions given; patient acknowledges understanding of instructions. 16:57:06 Verbal Stimulation=2 Physical Stimulation=2 Airway=2 Respiration=2 TOTAL=8. (0=absent, 1=li mited, 2=present) 16:57:07 Patient has been NPO for More than 6Hrs. 16:57:08 Skin Breakdown-see nurses notes 16:57:09 Patient Warmer Placed on the Table. 16:57:10 Disposable Defibrillator Pads Placed On Patient. 16:57:10 Louis Prominences Protected 16:57:13 History and physical on the chart or being dictated. Patient arrived on 1 mg/min LIDOCAINE DRIP in Left Antecubital via Peripheral IV. Pump/Drip Kevyn w = 15 ml/hr using 16:57:55 D5W with a concentration of 1 g in 250 ml. Assessment: Initial Case, HR=60 BPM, Rhythm=sr, ATFX=199/78 mmhg, Chest Pain=0, Edema=Mild, Col or=Normal, Skin = Warm, Dry Right Pulses: Reynaldo Ped=1, Radial=1 Left Pulses: Reynaldo Ped=1, Radial=1 17:05:24 Lower Right Extremities: Color=Normal Lower Left Extremities: Color=Normal Neurological: State=Alert, Ox3, OLSON Respiration: Resp=21 B/min, SpO2=98 %, O2=6 lpm 17:24:10 [address] off by [facility] Rep per Dr's orders 17:29:32 Table restraints applied according to hospital policy 17:30:40 Bilateral groins prepped with 2% chlorhexidine, and draped after a 3 minute waiting time. 17:39:32 Anesthesia at bedside. Assumes care of patient. 17:40:37 MD Perez arrived. 17:45:24 Lidocaine gtt off by anesthesia per order. 17:49:28 Reference ECG taken 17:50:21 Anesthesiologist present for intubation. Time Out. Correct patient, procedure, procedure equipment, site and side verified with physicia n present. Time 17:55:09 concurred by MD, individual staff and LIGHTNING ROD ERECTOR. Time Out #2 - Consents verified, patient in correct position, all results are labled and displa yed, safety precautions 17:55:32 taken, antibiotics administered. Time out concurred by MD, individual staff and LIGHTNING ROD ERECTOR in procedu re 17:55:56 Case Start 17:55:58 20 mL 1% XYLOCAINE given in lab by Neli Grider in Right Groin via Subcutaneous. 17:56:54 Vascular access was obtained in the Fem Vein (right). 17:57:04 Vascular access was obtained in the Fem Vein (right). 17:57:14 Vascular access was obtained in the Fem Art (right). 17:57:17 A SHEATH, EPS, FR6 FAST CATH FR 6 was advanced into the Fem Vein (right) using the Modified Seldinger technique. 17:57:29 A SHEATH, EPS, FR8 FAST CATH FR 8 was advanced into the Fem Art (right) using the Modified Seldinger technique. 17:57:33 A SHEATH, FR10 JAKE 11CM FR 10 was advanced into the Fem Vein (right) using the Modified Seldinger technique. 17:59:23 Patient arrived on IV Solutions in Left Antecubital via Peripheral IV. Pump/Drip Flow = 50 ml/hr using NaCl .9. w 20 KCL 17:59:56 20 mL 1% XYLOCAINE given in lab by Red Perez in Left Groin via Subcutaneous. 18:10:51 Access site was Left Femoral Artery using US guidance. A INTRODUCER SET, MICROPUNCTURE FR 5 was inserted in the Fem Art (left). This was necessary in order to 18:11:35 accomodate a larger catheter. A SHEATH, EPS, FR6 FAST CATH FR 6 was exchanged in the Fem Art (left). This was necessary in or sumeet to accomodate 18:11:44 a larger catheter. 18:18:07 PERCLOSE, PRO GLIDE CLOSER DEVICE FR 6 placement in the Fem Art (left) 18:22:15 A 13FR dilator was inserted over the wire to predilate. 18:22:22 PERCLOSE, PRO GLIDE CLOSER DEVICE FR 6 placement in the Fem Art (left) 18:22:51 An exchange wire was inserted via Fem Art (left). A SHEATH, FR14 RB 30CM (IMPELLA ) FR 14 was exchanged in the Fem Art (right). This was necessar y in order to 18:23:50 accomodate a larger catheter. 18:25:52 Wire out. 5000 units HEPARIN given in lab by Anesthesia, LIGHTNING ROD ERECTOR via Peripheral IV. Ordered by Neli Grider . Reason: As per 18:27:07 physicians verbal order. 18:27:10 A WIRE, 3MMJ .035 180CM 180CM was inserted via Fem Art (left). 18:28:41 A JR 4.0 INFINITI CATHETER FR 5 was advanced over a wire. contrast was used for injections. 4000 units HEPARIN given in lab by Anesthesia, LIGHTNING ROD ERECTOR via Peripheral IV. Ordered by Neli Grider . Reason: As per 18:30:00 physicians verbal order. 18:32:04 Priming and prepping impella equipment. 18:35:52 Activated Clotting Time Drawn 18:40:14 ACT (Normal Range 90-180) = 249 3000 units HEPARIN given in lab by Anesthesia, LIGHTNING ROD ERECTOR via Peripheral IV. Ordered by Neli Grider . Reason: As per 18:40:17 physicians verbal order. 18:41:00 J-wire out. Impella wire in. JR 4.0 removed. An PUMPSET, IMPELLA 2.5 2.5 was advanced into the left ventricle . Proper placement was confir med under 18:43:28 fluoroscopy and the catheter was sutured in place. 18:48:26 Activated Clotting Time Drawn A CATHETER, JSN, QUAD BUNDLE FR 5 was advanced vis Fem Vein (left) and placed in the CS. Placem ent was visually 18:48:48 confirmed under fluoroscopy. A CATHETER, JSN, QUAD BUNDLE FR 5 was advanced vis Fem Vein (left) and placed in the HIS. Place ment was 18:49:35 visually confirmed under fluoroscopy. A CATHETER, JSN, QUAD FR 5 was advanced vis Fem Vein (left) and placed in the RVA. Placement wa s visually 18:49:41 confirmed under fluoroscopy. 18:51:40 CATHETER, ACUNAV FR10 ICE (SAMM) FR 10 Was Postioned. A CATHETER, THERMOCOOL NON-JAZ TC D-F was advanced vis Fem Art (right) and placed in the RVA. P lacement was 18:55:03 visually confirmed under fluoroscopy. 18:58:35 EPS in progress. 19:03:24 Ventricular tachycardia induced. 19:04:07 ECG rhythm of VT noted. Patient cardioverted at 200 joules. Success 19:04:26 RF Ablation of the LV with a CATHETER, THERMOCOOL NON-JAZ TC D-F. 19:07:37 Activated Clotting Time Drawn 19:08:51 Ventricular tachycardia induced. 19:09:33 Ablation procedure performed: VT. 19:09:38 EP Procedure was performed. w Impella placement 19:10:26 ACT (Normal Range 90-180) = 305 19:29:46 Continues w EPS and Ablation 19:38:17 Activated Clotting Time Drawn 19:46:20 ACT (Normal Range 90-180) = 359 19:46:59 All quad catheter(s) removed without difficulty. 19:47:39 PACU called. Spoke to Sourav 19:47:56 Bedside Report will be given. 19:52:30 Impella Catheter removed without difficulty 19:52:37 Sheath removed. 19:52:[address] to left fem art and secured by Dr Perez. 40 mg PROTAMINE given in lab by Anesthesia, LIGHTNING ROD ERECTOR via Peripheral IV. Ordered by Neli Grider. Jewel thornton: As per 19:56:15 physicians verbal order. 20:02:07 PERCLOSE, PRO GLIDE CLOSER DEVICE FR 6 placement in the Fem Art (right) 20:02:47 ICD back on to original values. 20:12:29 VASCADE, FR6 CLOSURE SYSTEM FR 6\\7 placement in the Fem Vein (right) 20:13:18 VASCADE, FR6 CLOSURE SYSTEM FR 6\\7 placement in the Fem Vein (right) 20:14:39 VASCADE, FR6 CLOSURE SYSTEM FR 6\\7 placement in the Fem Vein (right) 20:17:38 Sterile dressing applied to left groin site. Site wnl. 20:19:39 ACT (Normal Range 90-180) = 148 20:25:38 Case End (Physician broke scrub) 20:26:51 Activated Clotting Time Drawn Assessment: Final Case, HR=60 BPM, Edema=Mild, Color=Normal, Skin = Warm, Dry Right Pulses: Reynaldo Ped=1, Radial=1 Left Pulses: Reynaldo Ped=1, Radial=1 20:30:02 Lower Right Extremities: Color=Normal Lower Left Extremities: Color=Normal Neurological: State=Lethargic, OLSON Respiration: Resp=20 B/min, PiI2=124 %, O2=4 lpm 20:30:28 Patient moved to stretcher End Study - Contrast Media Used In Study Contrast Total Opened (mL) Total Used (mL) Total Wasted (mL) Unspecified 0 0 0 End Study - Maximum Contrast Load Max Contrast Load (mL) 359.4 End Study - Radiation Exposure Fluoro Time (minutes) 16.3 End Study - Sheaths Sheaths Pulled By Sheath Hold Time (min) Ronda Bragg 12 End Study - Patient Disposition Complications Transferred To Interventional Outcome No Telemetry Bed successful
--- NOTE | 2018-06-04 21:51 | ECG ---
Date Performed: 06/03/2018 Time Performed: 12:34:03 PTAGE: 57 years EKG: VENTRICULAR TACHYCARDIA PREVIOUS TRACING : 06/03/2018 12.26 Since the previous tracing, no significant change not ed DOCTOR: David Richardson Interpretating Date/Time 06/04/2018 21:50:22
--- NOTE | 2018-06-04 21:53 | ECG ---
Date Performed: 06/03/2018 Time Performed: 12:26:50 PTAGE: 57 years EKG: VENTRICULAR TACHYCARDIA ELECTRONIC VENTRICULAR PACEMAKER -- CONTOUR ANALYSIS BASED ON INTRI NSIC RHYTHM INTRAVENTRICULAR CONDUCTION DELAY INFERIOR MYOCARDIAL INFARCTION ABNORMAL ECG PREVIOUS TRACING : 06/03/2018 12.20 DOCTOR: David Richardson Interpretating Date/Time 06/04/2018 21:53:07
--- NOTE | 2018-06-04 21:54 | ECG ---
Date Performed: 06/03/2018 Time Performed: 12:20:25 PTAGE: 57 years EKG: ELECTRONIC VENTRICULAR PACEMAKER ABNORMAL RHYTHM ECG PREVIOUS TRACING : 05/29/2018 20.16 Since the previous tracing, no significant change noted DOCTOR: David Richardson Interpretating Date/Time 06/04/2018 21:53:31
--- NOTE | 2018-06-05 01:35 | MA ---
cc: PerezRed Gregory DO DATE: 06/04/2018 PROCEDURE: Insertion of short-term external heart assist system into heart, intraoperative, percutaneous approach, assistance with cardiac output using Impella pump continuous (CPT 03557, [id number], [id number]), explantation of Impella 2.5 heart assist device, Perclose bilateral groins. PREPROCEDURE DIAGNOSIS: Recurrent ventricular tachycardia for VT ablation, chronic systolic heart failure with an ejection fraction of 25-30%. POSTPROCEDURE DIAGNOSIS: Explantation of Impella device after VT ablation by Dr. Grider. BLOOD LOSS: 50 mL. INDICATIONS FOR PROCEDURE: Rob Rodriguez is a pleasant 57-year-old male who presented to [facility] due to recurrent VT. He has had previous ablations and continues to have ventricular tachycardia. He was evaluated by Dr. Grider for further considerations of VT ablation. Due to the difficulty with his previous ablation with VT, I was asked by Dr. Grider for implantation of an Impella device. Risks, benefits, and alternatives were explained to him and his and they were in agreement to proceed. DESCRIPTION OF PROCEDURE: The patient was brought to the lab and prepped in sterile fashion. Anesthesia sedated the patient. Left femoral artery was accessed with a micropuncture needle and a modified Seldinger technique. During the angiogram, this was infiltrated in the back wall of the vessel, but no dissection flap was noted. The vessel was large enough for Impella device and wire was intravascular and so this was exchanged out for a 6-Mexican sheath. Two Percloses were used to pre-close the vessel. Sheath was exchanged out for the Impella sheath. A JR4 was advanced over a J-wire to the ascending aorta and across the aortic valve. Heparin was given as an anticoagulant. Impella wire was advanced into the left ventricle and the JR4 was removed. ACT was 250 and additional heparin was given and the Impella 2.5 was advanced into the left ventricle. The Impella was ramped up to a cardiac output of 2.5 liters per minute. Please see Dr. Grider's note for the VT ablation. After VT ablation was done, Impella was weaned off and the patient was hemodynamically stable. The Impella was removed. Left femoral sheath was removed with 2 Percloses used to close the vessel. I was asked by Dr. Grider to Perclose his right femoral artery sheath, which was 8-Mexican. A Perclose was placed to close the right femoral artery. The patient left the floating labor gang supervisor cardiovascularly stable. IMPRESSION: 1. Ventricular tachycardia with recurrent VT, status post attempted VT ablation per Dr. Grider. 2. Implantation and explantation of Impella 2.5 heart assist device to assist during ventricular tachycardia. RECOMMENDATIONS: 1. Mr. Rodriguez underwent VT ablation per Dr. Grider and further recommendations will be made by him from an EP standpoint. 2. He will be taken back to the CVICU for further observation. Thank you for allowing me to see Rob Rodriguez. If there are any questions, please do not hesitate to call. Red Perez, DO VGP/sv , 12:36 AM , 12:45 AM MTDGera
[2018-06-05] MEDS: Morphine Sulfate Inj 2 MG/ML Vial IV.PUSH PRN ×3 (03:14→16:24)
[2018-06-05] MEDS: ALPRAZolam 0.5 MG Tablet PO PRN (03:15)
--- NOTE | 2018-06-05 03:58 | MB ---
cc: Red Perez DO DATE: 06/05/2018 REASON FOR CONSULTATION: Consideration of Impella during VT ablation. HISTORY OF PRESENT ILLNESS: Rob Rodriguez is a pleasant 53-year-old male who presented to [facility] due to ventricular tachycardia and AICD firing. The patient was previously here last week and underwent an ablation by Dr. Grider. He was discharged home on 06/02/2018 and then on 06/03/2018, he had an episode of syncope and he woke up with his defibrillator firing. While in the ED, he had recurrent defibrillator firings and magnet was placed over the AICD. He was given multiple pushes of metoprolol for ventricular tachycardia. Dr. Grider evaluated the patient and planned on a VT ablation and I was asked to see the patient for implantation of an Impella device to further assess this. In seeing him, he is currently hemodynamically stable without chest pain or shortness of breath. PAST MEDICAL HISTORY: 1. Coronary artery disease. 2. Chronic systolic heart failure. 3. Chronic obstructive pulmonary disease. 4. Chronic renal failure. 5. Hypertension. 6. Multiple episodes of ventricular tachycardia. PAST SURGICAL HISTORY: 1. Biventricular defibrillator. 2. Cardiac catheterization (09/19/2017) LAD occluded in the mid portion. Left circumflex 90% proximal. First OM with no significant disease. Second OM total occlusion with collaterals from the diagonal and LAD filling the distal portion. Right coronary with 30-40% throughout in a diffuse pattern. HURTADO to LAD with good flow. Two vein grafts were noted to be occluded. PCI of left circumflex with a bare metal stent (2.5 x 12). CABG x4 (01/29/2008) HURTADO to LAD, SVG to diagonal, SVG to OM, SVG to RCA. ALLERGIES: 1. OXYCODONE. 2. SULFA. 3. ATIVAN. MEDICATIONS: Allopurinol 300 mg daily, Plavix 75 mg daily, albuterol every 6 hours as needed, Xanax 0.25 mg t.i.d. as needed, tramadol 50 mg t.i.d., Flomax 0.4 mg b.i.d., ranitidine 75 mg daily, Lyrica 50 mg t.i.d., Lipitor 80 mg daily, metolazone 5 mg daily, Breo 100/25 daily, amiodarone 200 mg daily, aspirin 81 mg daily, nitro sublingual as needed, potassium 20 mEq daily, Bumex 2 mg daily. FAMILY HISTORY: Denies sudden cardiac within the family. SOCIAL HISTORY: Previously smoked, but quit a number of years ago. Denies alcohol or drug abuse. REVIEW OF SYSTEMS: Fourteen systems were reviewed including osteopathic. Pertinent positives and negatives above, otherwise negative. PHYSICAL EXAMINATION: VITAL SIGNS: Temperature 98.6, heart rate 60, blood pressure 108/74, respirations 20, pulse oximetry 97% on 4 liters. GENERAL: The patient appears mildly anxious, but no acute distress. Alert, awake and oriented x3. HEENT: Extraocular muscles intact. Mucous membranes moist. NECK: Supple. No JVD at 45 degrees. No carotid bruits heard bilaterally. Carotid upstroke is brisk in nature. HEART: Regular rate and rhythm. Positive first and second heart sounds with 1/6 holosystolic murmur noted at the apex. LUNGS: Clear to auscultation bilaterally. No wheezes, rales, or rhonchi. ABDOMEN: Soft, nontender, nondistended. No organomegaly noted. EXTREMITIES: Show no clubbing, cyanosis or edema. Femoral and distal pulses are intact bilaterally. NEUROLOGIC: No focal deficits. SKIN: Warm, dry, and intact. OSTEOPATHICALLY: No kyphoscoliosis, lordosis, or paraspinal tender points. LABORATORY DATA: Hemoglobin 11.9, hematocrit 35.7, platelets 177. Potassium 3.9, BUN 26, creatinine 1.53. Electrocardiogram (06/03/2018 at 12:34) ventricular tachycardia. IMPRESSION: 1. Recurrent ventricular tachycardia with previous ablations. 2. Coronary artery disease as above. 3. Chronic obstructive pulmonary disease. 4. Chronic systolic heart failure with an ejection fraction of 25-30%. RECOMMENDATIONS: 1. Mr. Rodriguez obviously has had multiple episodes of ventricular tachycardia since his discharge. He has been evaluated by Dr. Grider with a plan for VT ablation. 2. I think it is reasonable to place an Impella device if possible to help assist in this procedure. 3. I reviewed previous cardiac catheterization films and no femoral angiograms have been done during this. I talked to Dr. Grider and we will plan on after anesthesia has anesthetized the patient, I will plan on doing a femoral angiogram and if the vessel size is appropriate for placement of an Impella 2.5 to further assist in his VT ablation. 4. I spoke to the patient and his about the procedure, risks, benefits, and alternatives, and they are agreeable to proceed. Thank you for allowing me to see Rob Rodriguez. If there are any questions, please do not hesitate to call. Red Perez, VGP/sv , 12:24 AM , 12:37 AM
[2018-06-05] MEDS: Chlorhexidine Gluconate 2% 1 Pack (2 Cloths) TOPICAL SCH (05:43)
[2018-06-05] MEDS: Lidocaine/D5W 2000 mg/500 mL 2,000 MG/500 ML BAG IV.CONT SCH (06:52)
[2018-06-05] MEDS: Amiodarone 200 MG Tablet PO SCH ×2 (06:52→22:10)
--- NOTE | 2018-06-05 08:24 | P.PNCC ---
Subjective Subjective Remarks/Hospital Course: Patient is a 57-year-old male with past medical history of recurrent ventricular tachycardia, history of multiple ablation procedures in the past, last ablation performed by Dr. Grider on of last week, AICD replacement last week, CAD status post CABG 2, COPD who was brought to the emergency department by EMS due to defibrillator firing. He was discharged home only yesterday. He had an episode of syncope today, woke up with the defibrillator firing. He presented to the ED with recurrent defibrillator firing and chest pain. EKG in the ED confirmed ventricular tachycardia. Dr. Ac in ED discussed with Dr. Doan who happened to be in the ED. A magnet was placed over the AICD to deactivate and patient was given multiple IV pushes of metoprolol until V. tach was controlled. Critical care medicine consulted for admission. I advised 150 mg amiodarone bolus followed by amiodarone infusion per protocol and holding p.o. amiodarone. In addition to metoprolol patient also received and lidocaine IVP in the ED I evaluated the patient in the CVICU. He appears in moderate distress and nervous. I will continue amiodarone infusion for now. Coreg 12.5 mg now and 6.25 mg every 12 ordered. I have discussed with Dr. Grider who will see the patient soon. The [employer] rep did interrogate the AICD SUBJ 06/04/18: Seen by Dr. Grider EP yesterday. He added mexiletine 200 mg p.o. 3 times daily. Coreg was started earlier. Had been weaned off the amiodarone infusion yesterday. Overnight patient developed ventricular tachycardia again 4 and was shocked several times. Received IV push lidocaine 2 and currently is on lidocaine infusion. Last episode of ventricular tachycardia around [address] Grider 06/05/18: Underwent attempted V. tach ablation yesterday by Dr. Grider. s/p Implantation and explantation of Impella 2.5 heart assist device to assist during ventricular tachycardia ablation by Dr. Perez. I am unable to review a procedure note as it is not available in the system. Overnight patient did not have any runs of V. tach, only few PVCs. Currently on Coreg, mexiletine, amiodarone Objective Vital Signs / I&O: Vital Signs 06/04/18 12:00 06/04/18 12:51 06/04/18 13:40 Temperature 98.6 F 98.6 F Pulse Rate 59 L 59 L Respiratory Rate 20 20 Blood Pressure 108/74 108/74 Pulse Oximetry 97 96 97 06/04/18 13:50 06/04/18 20:45 06/04/18 21:00 Temperature 97.5 F L Pulse Rate 67 62 Respiratory Rate 16 Blood Pressure 117/68 Pulse Oximetry 96 93 L 06/04/18 21:20 06/04/18 21:25 06/04/18 23:04 Temperature 98.2 F Pulse Rate 64 64 Respiratory Rate 20 Blood Pressure 130/80 Pulse Oximetry 93 L 93 L 06/04/18 23:29 06/05/18 03:35 06/05/18 04:00 Temperature 97.9 F 98.4 F Pulse Rate 59 L 61 Respiratory Rate 18 20 18 Blood Pressure 123/80 109/74 Pulse Oximetry 95 93 L 06/05/18 05:00 06/05/18 08:07 Temperature 98.4 F Pulse Rate 59 L 61 Respiratory Rate 20 Blood Pressure 109/74 Pulse Oximetry 96 93 L Intake & Output 06/04/18 06/05/18 06/05/18 18:59 06:59 18:59 Intake Total 1110 / 1110 1440 / 1440 Output Total 750 / 750 600 / 600 Balance 360 / 360 840 / 840 Weight 134 kg Intake: IV 1100 / 1100 1000 / 1000 NS + KCl 20 mEq Inj 1,000 ML @ 1000 / 1000 1000 / 1000 50 mls/hr IV.CONT .Q20H [facility] Rx# :[id number] Magnesium Sulfate 1 gm/D5W 100 100 / 100 ml Premix 100 ML @ 100 mls/hr IV.SIG ONCE ONE Rx#:[id number] Oral 440 / 440 Output: Urine Amount (Catheter) 750 / 750 600 / 600 Indwelling Urethral Catheter 750 / 750 600 / 600 Other: Date of Last Bowel Movement 06/03/18 06/03/18 # Bowel Movements 0 Result Diagrams: 06/04/18 04:15 06/04/18 04:15 Objective Remarks: GENERAL: This is a well-nourished, well-developed patient, in mild distress, having chest pain from defibrillation. SKIN: Significant ecchymosis over the left upper chest where the recent AICD was inserted HEAD: Atraumatic. Normocephalic. No temporal or scalp tenderness. EYES: Pupils equal round and reactive. Extraocular motions intact. ENT: Nose without bleeding, purulent drainage or septal hematoma. Airway patent. NECK: Trachea midline. No JVD or lymphadenopathy. Supple, nontender, no meningeal signs. CARDIOVASCULAR: Currently in paced rhythm with wide QRS. Left upper chest with AICD in place with surrounding ecchymosis. Parasternal chest wall pain on palpation. RESPIRATORY: Clear to auscultation. Breath sounds equal bilaterally. No wheezes , rales, or rhonchi. GASTROINTESTINAL: Abdomen soft, non-tender, nondistended. No hepato-splenomegaly , or palpable masses. No guarding. MUSCULOSKELETAL: Extremities without clubbing, cyanosis, or edema. No calf tenderness. NEUROLOGICAL: Awake and alert. Motor and sensory grossly within normal limits. Normal speech. Assessment and Plan - Problem List (1) Sustained ventricular tachycardia Code(s): I47.2 - Ventricular tachycardia Status: Acute (2) Chest pain Code(s): R07.9 - Chest pain, unspecified Status: Acute (3) Defibrillator discharge Code(s): Z45.02 - Encounter for adjustment and management of automatic implantable cardiac defibrillator Status: Acute - Assessment and Plan Plan: NEURO: -Morphine as needed for pain -Hold home medication tramadol and pregabalin at this time RESP: History of COPD -DuoNeb every 6 hours as needed -Continue home inhalers CV: Sustained ventricular tachycardia with recurrent defibrillator firing Recent ventricular tachycardia ablation 05/29/18 -Received multiple doses of IV metoprolol which eventually terminated the V. tach -Amiodarone 150 mg loading dose and infusion per protocol-discontinued yesterday evening -Continue amiodarone 200 mg twice daily -Coreg 12.5 mg p.o. 1 followed by 6.25 mg twice daily. Increase to 12.5 mg twice daily -Received IV lidocaine bolus 2 overnight currently on a lidocaine infusion -Mexiletine 200 mg 3 times daily added by Dr. Grider- increase to 400 TID and wean to DC Lidocaine -Consult EP Dr. Grider, I discussed with him -Keep potassium more than 4, keep magnesium more than 2.5, give 1 g now -Continue aspirin plavix -We will discuss with EP regarding other options -Discussed with EP regarding antitachycardia pacing, Dr. Grider will contact the [employer] rep GI: -Cardiac diet, IV famotidine : -Monitor renal function closely. ID: -No indication for antibiotics at this time HEME: -Monitor CBC, coags ENDO: -Electrolyte replacement per protocol -Sliding scale insulin PROPH: -Bilateral lower extremity SCDs. Lovenox/famotidine LINES: -Utilize peripheral IVs, central line if needed CC time 35 min (2) Chest pain Qualifiers: Chest pain type: unspecified Qualified Code(s): R07.9 - Chest pain, unspecified
[2018-06-05] MEDS: Enoxaparin Inj 40 MG/0.4 ML Syringe SQ SCH (08:38)
[2018-06-05] MEDS: Senna/Docusate Sodium 8.6/50 MG Tablet PO SCH ×2 (08:39→22:10)
[2018-06-05] MEDS: Famotidine PF Inj 20 MG/2 ML Vial IV.PUSH SCH ×2 (08:40→22:11)
[2018-06-05] MEDS: Carvedilol 6.25 MG Tablet PO SCH ×2 (08:40→22:10)
[2018-06-05 09:58] LABS: Albumin 2.7 g/dL (3.4-5.0); Anion Gap 6 meq/L (5-15); Aspartate Aminotransferase 24 U/L (15-37); Blood Urea Nitrogen 21 mg/dL (7-18); Calcium 8.4 mg/dL (8.5-10.1); Carbon Dioxide 32.3 meq/L (21.0-32.0); Chloride 104 meq/L (98-107); Glomerular Filtration Rate 59 mL/min (>89); Glucose,Random 97 mg/dL (74-106); Magnesium 2.8 mg/dL (1.5-2.5); Potassium 4.6 meq/L (3.5-5.1); Sodium 142 meq/L (136-145)
[2018-06-05 09:59] LABS: Alanine Aminotransferase 15 U/L (12-78)
[2018-06-05 10:02] LABS: Alkaline Phosphatase 69 U/L (45-117)
--- NOTE | 2018-06-05 10:12 | P.PNCA ---
Subjective Interval history: No events overnight No further VT Physical Exam Vital signs: Vital Signs 06/04/18 12:00 06/04/18 12:51 06/04/18 13:40 Temperature 98.6 F 98.6 F Pulse Rate 59 L 59 L Respiratory Rate 20 20 Blood Pressure 108/74 108/74 Pulse Oximetry 97 96 97 06/04/18 13:50 06/04/18 20:45 06/04/18 21:00 Temperature 97.5 F L Pulse Rate 67 62 Respiratory Rate 16 Blood Pressure 117/68 Pulse Oximetry 96 93 L 06/04/18 21:20 06/04/18 21:25 06/04/18 23:04 Temperature 98.2 F Pulse Rate 64 64 Respiratory Rate 20 Blood Pressure 130/80 Pulse Oximetry 93 L 93 L 06/04/18 23:29 06/05/18 03:35 06/05/18 04:00 Temperature 97.9 F 98.4 F Pulse Rate 59 L 61 Respiratory Rate 18 20 18 Blood Pressure 123/80 109/74 Pulse Oximetry 95 93 L 06/05/18 05:00 06/05/18 08:07 06/05/18 08:28 Temperature 98.4 F Pulse Rate 59 L 61 Respiratory Rate 20 Blood Pressure 109/74 Pulse Oximetry 96 93 L 95 06/05/18 08:56 06/05/18 08:57 Temperature Pulse Rate 59 L Respiratory Rate Blood Pressure Pulse Oximetry 96 Intake & Output 06/04/18 06/05/18 06/05/18 18:59 06:59 18:59 Intake Total 1110 / 1110 1440 / 1440 Output Total 750 / 750 600 / 600 Balance 360 / 360 840 / 840 Weight 134 kg Intake: IV 1100 / 1100 1000 / 1000 NS + KCl 20 mEq Inj 1,000 ML @ 1000 / 1000 1000 / 1000 50 mls/hr IV.CONT .Q20H [facility] Rx# :[id number] Magnesium Sulfate 1 gm/D5W 100 100 / 100 ml Premix 100 ML @ 100 mls/hr IV.SIG ONCE ONE Rx#:[id number] Oral 440 / 440 Output: Urine Amount (Catheter) 750 / 750 600 / 600 Indwelling Urethral Catheter 750 / 750 600 / 600 Other: Date of Last Bowel Movement 06/03/18 06/03/18 06/03/18 # Bowel Movements 0 Narrative: GENERAL: NAD, AAOx3 SKIN: Warm and dry. HEAD: Atraumatic. Normocephalic. EYES: Pupils equal and round. No scleral icterus. No injection or drainage. ENT: No nasal bleeding or discharge. Mucous membranes pink and moist. NECK: Trachea midline. No JVD. CARDIOVASCULAR: Regular rate and rhythm. RESPIRATORY: No accessory muscle use. Clear to auscultation. Breath sounds equal bilaterally. GASTROINTESTINAL: Abdomen soft, non-tender, nondistended. Hepatic and splenic margins not palpable. MUSCULOSKELETAL: Extremities without clubbing, cyanosis, or edema. No obvious deformities. Extremities: Right groin with no hematoma, distal pulses palpable. Left groin with no change from previous ecchymosis, distal pulses palpable NEUROLOGICAL: Awake and alert. No obvious cranial nerve deficits. Motor grossly within normal limits. Five out of 5 muscle strength in the arms and legs. Normal speech. PSYCHIATRIC: Appropriate mood and affect; insight and judgment normal. - Urinary Catheter Management Indwelling Urethral Catheter Cath placed during this visit: yes Reason for continuing: Hourly intake/output Insertion date: 06/03/18 Insertion time: 13:30 Assessment and Plan - Assessment (1) Chronic systolic CHF (congestive heart failure) Code(s): I50.22 - Chronic systolic (congestive) heart failure Status: Acute (2) Defibrillator discharge Code(s): Z45.02 - Encounter for adjustment and management of automatic implantable cardiac defibrillator Status: Acute (3) Sustained ventricular tachycardia Code(s): I47.2 - Ventricular tachycardia Status: Acute - Plan 1) Recurrent VT Probable epicardial VT Dr. Grider following 2) Impella 2.5 placement for VT ablation and removal Pulses intact Both feet warm 3) Chronic systolic heart failure
--- NOTE | 2018-06-05 11:56 | ECG ---
Date Performed: 06/04/2018 Time Performed: 20:59:13 PTAGE: 57 years EKG: Normal Sinus rhythm with P-wave synchronous ventricular pacing ABNORMAL RHYTHM ECG PREVIOUS TRACING : 06/03/2018 12.34 Compared to previous tracing, patient is no longer in tachy cardia DOCTOR: Lexa Lynne Interpretating Date/Time 06/05/2018 11:55:19
--- NOTE | 2018-06-05 16:47 | ECG ---
Date Performed: 06/05/2018 Time Performed: 07:47:58 PTAGE: 57 years EKG: Sinus rhythm . Short AL interval Severe right axis deviation Right bundle branch block Extensive infarct - age und etermined Low QRS voltages in precordial leads Abnormal ECG PREVIOUS TRACING : 06/04/2018 20.59 DOCTOR: Hernan Brice Interpretating Date/Time 06/05/2018 16:46:30
--- NOTE | 2018-06-05 20:36 | P.PN ---
Subjective Interval history: Feeling better Physical Exam Vital signs: Vital Signs 06/04/18 20:45 06/04/18 21:00 06/04/18 21:20 Temperature 97.5 F L Pulse Rate 67 62 64 Respiratory Rate 16 Blood Pressure 117/68 Pulse Oximetry 93 L 06/04/18 21:25 06/04/18 23:04 06/04/18 23:29 Temperature 98.2 F 97.9 F Pulse Rate 64 59 L Respiratory Rate 20 18 Blood Pressure 130/80 123/80 Pulse Oximetry 93 L 93 L 95 06/05/18 03:35 06/05/18 04:00 06/05/18 05:00 Temperature 98.4 F Pulse Rate 61 59 L Respiratory Rate 20 18 Blood Pressure 109/74 Pulse Oximetry 93 L 96 06/05/18 08:07 06/05/18 08:28 06/05/18 08:56 Temperature 98.4 F Pulse Rate 61 59 L Respiratory Rate 20 Blood Pressure 109/74 Pulse Oximetry 93 L 95 06/05/18 08:57 06/05/18 11:35 06/05/18 11:59 Temperature 98.6 F Pulse Rate 59 L Respiratory Rate 16 17 Blood Pressure 112/76 Pulse Oximetry 96 97 06/05/18 12:56 06/05/18 12:57 06/05/18 16:07 Temperature Pulse Rate 59 L 59 L Respiratory Rate Blood Pressure Pulse Oximetry 96 97 06/05/18 16:08 06/05/18 16:54 Temperature 98.6 F Pulse Rate 59 L Respiratory Rate 17 17 Blood Pressure 96/63 L Pulse Oximetry 97 Intake & Output 06/05/18 06/05/18 06/06/18 06:59 18:59 06:59 Intake Total 1440 / 1440 1300 / 1300 Output Total 600 / 600 500 / 500 Balance 840 / 840 800 / 800 Weight 134 kg Intake: IV 1000 / 1000 500 / 500 Lidocaine/D5W 2000 mg/500 mL 500 / 500 Premix Inj 2,000 mg In 500 ml @ 1 MG/MIN 15 mls/hr IV.CONT . Q24H [facility] Rx#:[id number] NS + KCl 20 mEq Inj 1,000 ML @ 1000 / 1000 50 mls/hr IV.CONT .Q20H [facility] Rx# :[id number] Oral 440 / 440 800 / 800 Output: Urine Amount (Catheter) 600 / 600 500 / 500 Indwelling Urethral Catheter 600 / 600 500 / 500 Other: Date of Last Bowel Movement 06/03/18 06/03/18 # Bowel Movements 0 - Constitutional no acute distress - Routine HEENT Exam Head: Present: normocephalic Eye: Present: PERRL ENT: Present: mucous membranes moist - Routine Respiratory Exam Present: CTA bilaterally - Routine Cardiovascular Exam Present: RRR - Routine Abdominal Exam Present: soft - Routine Neurological Exam Present: alert, oriented X3 - Detailed Neurological Exam: Coma Scale Eye Opening: Spontaneous Verbal Response: Oriented Motor Response: Obey commands Jaun Luis Coma Scale Total: 15 - Urinary Catheter Management Indwelling Urethral Catheter Cath placed during this visit: yes Reason for continuing: Hourly intake/output Insertion date: 06/03/18 Insertion time: 13:30 Results - Labs CBC & Chem 7: 06/04/18 04:15 06/05/18 09:04 Laboratory Results - last 24 hr 06/05/18 09:04 Sodium 142 Potassium 4.6 Chloride 104 Carbon Dioxide 32.3 H Anion Gap 6 BUN 21 H Creatinine 1.26 Estimated GFR 59 L Random Glucose 97 Calcium 8.4 L Magnesium 2.8 H Total Bilirubin 0.5 AST 24 ALT 15 Alkaline Phosphatase 69 Total Protein 6.0 L Albumin 2.7 L Assessment and Plan - Assessment (1) Chronic systolic CHF (congestive heart failure) Code(s): I50.22 - Chronic systolic (congestive) heart failure Status: Acute Plan: On optimal medical management (2) Defibrillator discharge Code(s): Z45.02 - Encounter for adjustment and management of automatic implantable cardiac defibrillator Status: Acute Plan: No new shock reported (3) Sustained ventricular tachycardia Code(s): I47.2 - Ventricular tachycardia Status: Acute Plan: SP VT ablation. No defib shock, no VT since ablation Doing better Will continue on current management If stable, can be DH in AM I will see him in 2 weeks at my office
[2018-06-05] MEDS: Allopurinol 300 MG Tablet PO SCH (22:10)
--- NOTE | 2018-06-06 02:37 | MA ---
cc: Neli Grider MD DATE: 06/04/2018 PROCEDURE PERFORMED: Electrophysiology study with CS cannulation, intracardiac echo, 3-D mapping, radiofrequency ablation of ventricular tachycardia, and Impella insertion by Dr. Perez. Multiple cardioversion that was a very difficult and complex case. INDICATION: Mr. Rodriguez is a 57-year-old gentleman, congestive heart failure, cardiomyopathy, previous biventricular pacer defibrillator implanted, previous ventricular tachycardia ablation, admitted to the hospital due to a ventricular tachycardia storm. He was on lidocaine, mexiletine and amiodarone. Despite that, the gentleman has multiple shocks. Decision for ablation was taken. Because the patient has sustained VT, I decided to use Impella during the procedure. DESCRIPTION OF PROCEDURE: After informed consent was obtained, the patient was brought to the EP lab where he was prepped and draped in the usual sterile fashion. Conscious sedation was initiated and maintained throughout the procedure by the anesthesiologist. Once sedation was verified, the area of the right inguinal area was anesthetized with 2% Xylocaine. Using modified Seldinger technique, the right femoral vein was cannulated on 3 occasions. Two guidewires were advanced over the wire, two 6 and a 10-Argentine Hemaquet were advanced and the right femoral artery was cannulated on one occasion; 1 guidewire was advanced over the wire, 8-Argentine Hemaquet was advanced. At that point, Dr. Perez intervened in the left inguinal area. He did cannulate the left femoral vein. Perclose was placed as well as an Impella that was going with a cardiac index of 2.5. At that point, after the Impella placed, I decided to proceed with ablation. Through a 6-Argentine Hemaquet, two 5-Argentine Arsh curved quadripolar electrophysiology catheters were advanced and placed on the His, as well as coronary sinus. Through the 10-Argentine Hemaquet, a Cordis Hernandez [employer] intracardiac echo catheter was placed at the right atrium. Multiple views obtained. There is no pericardial effusion and pulmonary vein were seen. Atrial septum visualized. An intracardiac echo catheter was placed at the right ventricular septum for good visualization of the left ventricle. There was severe anterior dyskinesia. Through the 8-Argentine, the patient already received heparin. The goal is to keep an ACT around 300 msec. Through the 8-Argentine Hemaquet, a Cordis Hernandez DF 3.5 mm irrigated tip bidirectional catheter was advanced. Using [employer] endocardial solution mapping system, a 3-dimensional configuration of the left ventricle was obtained. A fractionated signal activation was coming from the lateral portion of the left ventricle. I did ablate. Subsequently, ventricular tachycardia was induced. The patient was on pumping with the Impella. Then, the patient has a different tachyarrhythmia. At this time, the cycle length was around 430 msec. He was ablated. At the end of the tachyarrhythmia coming from the septal area. After multiple mapping, I did realize most likely this arrhythmia is coming from the epicardial area. Ablation was performed, but the tachyarrhythmia was pace terminated at the end of the day. At this point, I decided to discontinue the ablation. Two previous tachyarrhythmia were ablated. I will continue medical management. All catheters were removed. Intracardiac echo showed no pericardial effusion. Impella was removed by Dr. Perez and a Perclose was placed. That was a very complex case. No incident to report. The patient tolerated the procedure. Blood loss, maybe 100 mL. The biventricular pacer defibrillator was reprogrammed, the defibrillator portion on, and the device was a preprogram LV pacing. ELECTROCARDIOGRAM: 1. At baseline, the patient was in sinus rhythm. Postprocedure, the patient in sinus rhythm. 2. BASIC INTERVAL: Base cycle length was around 1100 msec. 3. Tachyarrhythmia. Ventricular tachycardia was mapped and ablated. At least 2 different arrhythmia was ablated. Ablation was successful. I was unable to ablate the epicardial tachyarrhythmia. RECOMMENDATION: Successful electrophysiology study, mapping atrophic examination of ventricular tachyarrhythmia. Hemodynamic maintenance with Impella, if the gentleman has another episode of tachyarrhythmia, then I will recommend sending to another tertiary center for epicardial ablation. For now, he is going to be transferred to the telemetry unit. We will observe. If stable and no further tachyarrhythmia in the next 24 hours, the patient will be discharged home. MD ROMAN De Leon/nabila/goldie , 08:43 PM , 08:58 PM
[2018-06-06] MEDS: ALPRAZolam 0.5 MG Tablet PO PRN (03:56)
[2018-06-06 04:15] LABS: Hematocrit 32.2 % (39.0-51.0); Hemoglobin 10.6 gm/dL (13.0-17.0); Mean Platelet Volume 8.5 fL (7.0-11.0); Platelet Count 153 th/mm3 (150-450); Red Blood Count 3.54 mil/mm3 (4.50-5.90); White Blood Count 8.6 th/mm3 (4.0-11.0)
[2018-06-06 04:43] LABS: Albumin 2.5 g/dL (3.4-5.0); Anion Gap 7 meq/L (5-15); Aspartate Aminotransferase 13 U/L (15-37); Blood Urea Nitrogen 23 mg/dL (7-18); Calcium 8.4 mg/dL (8.5-10.1); Carbon Dioxide 31.5 meq/L (21.0-32.0); Chloride 105 meq/L (98-107); Glomerular Filtration Rate 49 mL/min (>89); Glucose,Random 92 mg/dL (74-106); Magnesium 2.7 mg/dL (1.5-2.5); Potassium 4.4 meq/L (3.5-5.1); Sodium 143 meq/L (136-145)
[2018-06-06 04:46] LABS: Alanine Aminotransferase 14 U/L (12-78); Alkaline Phosphatase 66 U/L (45-117); Total Protein 5.9 g/dL (6.4-8.2)
[2018-06-06] MEDS: Lidocaine/D5W 2000 mg/500 mL 2,000 MG/500 ML BAG IV.CONT SCH (07:25)
[2018-06-06] MEDS: Chlorhexidine Gluconate 2% 1 Pack (2 Cloths) TOPICAL SCH (07:25)
--- NOTE | 2018-06-06 08:00 | P.PNIM ---
Subjective Interval history: F/u; VT in no acute distress. no chest pain or sob. Physical Exam Vital signs: Vital Signs 06/05/18 08:07 06/05/18 08:28 06/05/18 08:56 Temperature 98.4 F Pulse Rate 61 59 L Respiratory Rate 20 Blood Pressure 109/74 Pulse Oximetry 93 L 95 06/05/18 08:57 06/05/18 11:35 06/05/18 11:59 Temperature 98.6 F Pulse Rate 59 L Respiratory Rate 16 17 Blood Pressure 112/76 Pulse Oximetry 96 97 06/05/18 12:56 06/05/18 12:57 06/05/18 16:07 Temperature Pulse Rate 59 L 59 L Respiratory Rate Blood Pressure Pulse Oximetry 96 97 06/05/18 16:08 06/05/18 16:54 06/05/18 20:00 Temperature 98.6 F 97.8 F Pulse Rate 59 L 59 L Respiratory Rate 17 17 18 Blood Pressure 96/63 L 103/67 Pulse Oximetry 97 96 06/05/18 21:00 06/05/18 21:34 06/06/18 00:00 Temperature Pulse Rate 59 L Respiratory Rate 16 Blood Pressure 107/60 Pulse Oximetry 93 L 94 L 95 06/06/18 02:25 06/06/18 04:00 Temperature 98.0 F Pulse Rate 59 L Respiratory Rate 20 22 Blood Pressure 107/68 Pulse Oximetry 93 L Intake & Output 06/05/18 06/06/18 06/06/18 18:59 06:59 18:59 Intake Total 1300 / 1300 480 / 480 Output Total 500 / 500 1500 / 1500 Balance 800 / 800 -1020 / -1020 Weight 114 kg Intake: IV 500 / 500 Lidocaine/D5W 2000 mg/500 mL 500 / 500 Premix Inj 2,000 mg In 500 ml @ 1 MG/MIN 15 mls/hr IV.CONT . Q24H [facility] Rx#:[id number] Oral 800 / 800 480 / 480 Output: Urine Amount (Catheter) 500 / 500 1500 / 1500 Indwelling Urethral Catheter 500 / 500 1500 / 1500 Other: Date of Last Bowel Movement 06/03/18 06/03/18 # Bowel Movements 0 - Constitutional no acute distress - Routine Respiratory Exam Present: CTA bilaterally - Routine Cardiovascular Exam Present: RRR - Routine Abdominal Exam Present: soft - Routine Extremities Exam Comments: no pedal edema. - Routine Neurological Exam Present: alert - Urinary Catheter Management Indwelling Urethral Catheter Cath placed during this visit: yes Reason for continuing: Hourly intake/output Insertion date: 06/03/18 Insertion time: 13:30 Results - Labs CBC & Chem 7: 06/06/18 03:50 06/06/18 03:50 Laboratory Results - last 24 hr 06/05/18 06/06/18 06/06/18 09:04 03:50 03:50 WBC 8.6 RBC 3.54 L Hgb 10.6 L Hct 32.2 L MCV 91.0 MCH 30.0 MCHC 33.0 RDW 15.0 Plt Count 153 MPV 8.5 Sodium 142 143 Potassium 4.6 4.4 Chloride 104 105 Carbon Dioxide 32.3 H 31.5 Anion Gap 6 7 BUN 21 H 23 H Creatinine 1.26 1.48 H Estimated GFR 59 L 49 L Random Glucose 97 92 Calcium 8.4 L 8.4 L Magnesium 2.8 H 2.7 H Total Bilirubin 0.5 0.4 AST 24 13 L ALT 15 14 Alkaline Phosphatase 69 66 Total Protein 6.0 L 5.9 L Albumin 2.7 L 2.5 L Assessment and Plan - Plan A/P - VT- s/p ablation continue Amiodarone and Coreg- cardiology following. -COPD with no exacerbation; neb treatment -consult PT Discharge Planning: when cleared by cardiology- awaiting PT evaluation.
[2018-06-06] MEDS: Enoxaparin Inj 40 MG/0.4 ML Syringe SQ SCH (08:46)
[2018-06-06] MEDS: Senna/Docusate Sodium 8.6/50 MG Tablet PO SCH ×2 (08:48→21:28)
[2018-06-06] MEDS: Famotidine PF Inj 20 MG/2 ML Vial IV.PUSH SCH ×2 (08:49→21:27)
[2018-06-06] MEDS: Allopurinol 300 MG Tablet PO SCH (08:49)
[2018-06-06] MEDS: Amiodarone 200 MG Tablet PO SCH ×2 (08:53→18:22)
[2018-06-06] MEDS: Carvedilol 6.25 MG Tablet PO SCH ×2 (09:07→21:26)
[2018-06-06] MEDS: Pregabalin 25 MG Capsule PO SCH ×3 (10:55→18:21)
--- NOTE | 2018-06-06 11:15 | P.PNCA ---
Subjective Interval history: No events overnight No VT noted Physical Exam Vital signs: Vital Signs 06/05/18 11:35 06/05/18 11:59 06/05/18 12:56 Temperature 98.6 F Pulse Rate 59 L 59 L Respiratory Rate 16 17 Blood Pressure 112/76 Pulse Oximetry 97 06/05/18 12:57 06/05/18 16:07 06/05/18 16:08 Temperature 98.6 F Pulse Rate 59 L 59 L Respiratory Rate 17 Blood Pressure 96/63 L Pulse Oximetry 96 97 97 06/05/18 16:54 06/05/18 20:00 06/05/18 21:00 Temperature 97.8 F Pulse Rate 59 L Respiratory Rate 17 18 Blood Pressure 103/67 Pulse Oximetry 96 93 L 06/05/18 21:34 06/06/18 00:00 06/06/18 02:25 Temperature Pulse Rate 59 L Respiratory Rate 16 20 Blood Pressure 107/60 Pulse Oximetry 94 L 95 06/06/18 04:00 06/06/18 08:00 06/06/18 08:24 Temperature 98.0 F 97.7 F Pulse Rate 59 L 59 L Respiratory Rate 22 16 Blood Pressure 107/68 110/68 Pulse Oximetry 93 L 95 96 Intake & Output 06/05/18 06/06/18 06/06/18 18:59 06:59 18:59 Intake Total 1300 / 1300 480 / 480 Output Total 500 / 500 1500 / 1500 Balance 800 / 800 -1020 / -1020 Weight 114 kg Intake: IV 500 / 500 Lidocaine/D5W 2000 mg/500 mL 500 / 500 Premix Inj 2,000 mg In 500 ml @ 1 MG/MIN 15 mls/hr IV.CONT . Q24H [facility] Rx#:[id number] Oral 800 / 800 480 / 480 Output: Urine Amount (Catheter) 500 / 500 1500 / 1500 Indwelling Urethral Catheter 500 / 500 1500 / 1500 Other: Date of Last Bowel Movement 06/03/18 06/03/18 06/03/18 # Bowel Movements 0 Narrative: GENERAL: NAD, AAOx3 SKIN: Warm and dry. HEAD: Atraumatic. Normocephalic. EYES: Pupils equal and round. No scleral icterus. No injection or drainage. ENT: No nasal bleeding or discharge. Mucous membranes pink and moist. NECK: Trachea midline. No JVD. CARDIOVASCULAR: Regular rate and rhythm. RESPIRATORY: No accessory muscle use. Clear to auscultation. Breath sounds equal bilaterally. GASTROINTESTINAL: Abdomen soft, non-tender, nondistended. Hepatic and splenic margins not palpable. MUSCULOSKELETAL: Extremities without clubbing, cyanosis, or edema. No obvious deformities. Extremities: Right groin with no hematoma, distal pulses palpable. Left groin with no change from previous ecchymosis, distal pulses palpable NEUROLOGICAL: Awake and alert. No obvious cranial nerve deficits. Motor grossly within normal limits. Five out of 5 muscle strength in the arms and legs. Normal speech. PSYCHIATRIC: Appropriate mood and affect; insight and judgment normal. - Urinary Catheter Management Indwelling Urethral Catheter Cath placed during this visit: yes, but has since been removed by the nurse Reason for continuing: Hourly intake/output Insertion date: 06/03/18 Insertion time: 13:30 Removal date: 06/06/18 Removal time: 09:12 Assessment and Plan - Assessment (1) Chronic systolic CHF (congestive heart failure) Code(s): I50.22 - Chronic systolic (congestive) heart failure Status: Acute (2) Defibrillator discharge Code(s): Z45.02 - Encounter for adjustment and management of automatic implantable cardiac defibrillator Status: Acute (3) Sustained ventricular tachycardia Code(s): I47.2 - Ventricular tachycardia Status: Acute - Plan 1) Recurrent VT Dr. Grider following 2) Impella 2.5 placement for VT ablation and removal Pulses intact Both feet warm Groins doing well Hgb drop secondary to the procedure 3) Chronic systolic heart failure 4) Overall weak Per nursing, PT to evaluate 5) Nothing more from my stance Will defer to Dr. Grider for further recommendations
--- NOTE | 2018-06-06 16:52 | P.PN ---
Subjective Interval history: No shock but feeling weak Physical Exam Vital signs: Vital Signs 06/05/18 16:54 06/05/18 20:00 06/05/18 21:00 Temperature 97.8 F Pulse Rate 59 L Respiratory Rate 17 18 Blood Pressure 103/67 Pulse Oximetry 96 93 L 06/05/18 21:34 06/06/18 00:00 06/06/18 02:25 Temperature Pulse Rate 59 L Respiratory Rate 16 20 Blood Pressure 107/60 Pulse Oximetry 94 L 95 06/06/18 04:00 06/06/18 08:00 06/06/18 08:24 Temperature 98.0 F 97.7 F Pulse Rate 59 L 59 L Respiratory Rate 22 16 Blood Pressure 107/68 110/68 Pulse Oximetry 93 L 95 96 06/06/18 12:00 06/06/18 13:10 Temperature 98 F Pulse Rate 63 Respiratory Rate 16 16 Blood Pressure 113/63 Pulse Oximetry 95 Intake & Output 06/05/18 06/06/18 06/06/18 18:59 06:59 18:59 Intake Total 1300 / 1300 480 / 480 Output Total 500 / 500 1500 / 1500 Balance 800 / 800 -1020 / -1020 Weight 114 kg Intake: IV 500 / 500 Lidocaine/D5W 2000 mg/500 mL 500 / 500 Premix Inj 2,000 mg In 500 ml @ 1 MG/MIN 15 mls/hr IV.CONT . Q24H [facility] Rx#:[id number] Oral 800 / 800 480 / 480 Output: Urine Amount (Catheter) 500 / 500 1500 / 1500 Indwelling Urethral Catheter 500 / 500 1500 / 1500 Other: Date of Last Bowel Movement 06/03/18 06/03/18 06/03/18 # Bowel Movements 0 - Constitutional no acute distress - Routine HEENT Exam Head: Present: normocephalic Eye: Present: PERRL ENT: Present: mucous membranes moist - Routine Respiratory Exam Present: CTA bilaterally - Routine Cardiovascular Exam Present: RRR - Routine Neurological Exam Present: alert, oriented X3 - Urinary Catheter Management Indwelling Urethral Catheter Cath placed during this visit: yes, but has since been removed by the nurse Reason for continuing: Decision to DC catheter Insertion date: 06/03/18 Insertion time: 13:30 Removal date: 06/06/18 Removal time: 09:12 Results - Labs CBC & Chem 7: 06/06/18 03:50 06/06/18 03:50 Laboratory Results - last 24 hr 06/06/18 06/06/18 03:50 03:50 WBC 8.6 RBC 3.54 L Hgb 10.6 L Hct 32.2 L MCV 91.0 MCH 30.0 MCHC 33.0 RDW 15.0 Plt Count 153 MPV 8.5 Sodium 143 Potassium 4.4 Chloride 105 Carbon Dioxide 31.5 Anion Gap 7 BUN 23 H Creatinine 1.48 H Estimated GFR 49 L Random Glucose 92 Calcium 8.4 L Magnesium 2.7 H Total Bilirubin 0.4 AST 13 L ALT 14 Alkaline Phosphatase 66 Total Protein 5.9 L Albumin 2.5 L Assessment and Plan - Assessment (1) Chronic systolic CHF (congestive heart failure) Code(s): I50.22 - Chronic systolic (congestive) heart failure Status: Acute Plan: On optimal medical management (2) Defibrillator discharge Code(s): Z45.02 - Encounter for adjustment and management of automatic implantable cardiac defibrillator Status: Acute Plan: No new shock reported (3) Sustained ventricular tachycardia Code(s): I47.2 - Ventricular tachycardia Status: Acute Plan: In sinus rhythm No VT reported apparently patient cannot walk more than 20 feet because of leg weakness. family want the patient to be stronger before DH That can be do in a rehab if this what they want No VT, stable cardiac rider. Can be DH. I will be available on a PRN basis
[2018-06-06] MEDS ORDERED: Bisacodyl 10 MG Supp RECTAL ONE (17:15)
[2018-06-07] MEDS: Temazepam 15 MG Capsule PO PRN (00:16)
[2018-06-07] MEDS: Chlorhexidine Gluconate 2% 1 Pack (2 Cloths) TOPICAL SCH (05:15)
[2018-06-07 05:42] LABS: Baso % (Auto) 0.4 % (0.0-2.0); Eos # (Auto) 0.1 th/mm3 (0.0-0.4); Eos % (Auto) 0.7 % (0.0-4.0); Hematocrit 30.4 % (39.0-51.0); Hemoglobin 10.3 gm/dL (13.0-17.0); Lymph # (Auto) 0.9 th/mm3 (1.0-4.8); Lymph % (Auto) 8.7 % (9.0-44.0); Mean Corpuscular HGB Conc 33.9 % (32.0-36.0); Mean Corpuscular Hemoglobin 29.9 pg (27.0-34.0); Mean Corpuscular Volume 88.1 fL (80.0-100.0); Mean Platelet Volume 8.7 fL (7.0-11.0); Neut # (Auto) 7.9 th/mm3 (1.8-7.7); Neut % (Auto) 80.2 % (16.0-70.0); Platelet Count 163 th/mm3 (150-450); Red Blood Count 3.45 mil/mm3 (4.50-5.90); Red Cell Distribution Width 14.7 % (11.6-17.2); White Blood Count 9.9 th/mm3 (4.0-11.0)
[2018-06-07 05:44] LABS: Calcium 7.9 mg/dL (8.5-10.1)
[2018-06-07] MEDS: Amiodarone 200 MG Tablet PO SCH ×2 (06:22→18:09)
--- NOTE | 2018-06-07 08:20 | P.PNIM ---
Subjective Interval history: f/u; VT in no acute distress. no chest pain or sob. but feels weak. had a BM . d/w the RN and no other acute issues over night. Physical Exam Vital signs: Vital Signs 06/06/18 08:24 06/06/18 12:00 06/06/18 13:10 Temperature 98 F Pulse Rate 63 Respiratory Rate 16 16 Blood Pressure 113/63 Pulse Oximetry 96 95 06/06/18 16:00 06/06/18 20:00 06/06/18 22:05 Temperature 97.7 F 99.2 F Pulse Rate 62 62 Respiratory Rate 16 18 Blood Pressure 118/75 104/65 Pulse Oximetry 95 93 L 96 06/06/18 23:00 06/07/18 00:00 06/07/18 02:00 Temperature 98.3 F Pulse Rate 62 Respiratory Rate 20 18 Blood Pressure 95/65 L Pulse Oximetry 95 94 L 06/07/18 03:00 06/07/18 03:30 06/07/18 04:00 Temperature 98 F Pulse Rate 59 L 59 L Respiratory Rate 18 Blood Pressure 92/52 L Pulse Oximetry 96 95 06/07/18 05:00 06/07/18 05:09 06/07/18 06:00 Temperature Pulse Rate Respiratory Rate 18 18 Blood Pressure Pulse Oximetry 96 Intake & Output 06/06/18 06/07/18 06/07/18 18:59 06:59 18:59 Intake Total 600 / 600 960 / 960 Output Total 1270 / 1270 800 / 800 Balance -670 / -670 160 / 160 Weight 110.5 kg Intake: Oral 600 / 600 960 / 960 Output: Urine 1270 / 1270 800 / 800 Other: Date of Last Bowel Movement 06/03/18 06/06/18 # Bowel Movements 0 0 - Constitutional no acute distress - Routine Respiratory Exam Present: CTA bilaterally - Routine Cardiovascular Exam Present: RRR - Routine Abdominal Exam Present: soft - Routine Extremities Exam Comments: no pedal edema. - Routine Neurological Exam Present: alert, oriented X3 - Urinary Catheter Management Indwelling Urethral Catheter Cath placed during this visit: yes, but has since been removed by the nurse Reason for continuing: Not indwelling catheter Insertion date: 06/03/18 Insertion time: 13:30 Removal date: 06/06/18 Removal time: 09:12 Results - Labs CBC & Chem 7: 06/07/18 05:05 06/07/18 05:05 Laboratory Results - last 24 hr 06/07/18 06/07/18 05:05 05:05 WBC 9.9 RBC 3.45 L Hgb 10.3 L Hct 30.4 L MCV 88.1 MCH 29.9 MCHC 33.9 RDW 14.7 Plt Count 163 MPV 8.7 Neut % (Auto) 80.2 H Lymph % (Auto) 8.7 L [place] % (Auto) 10.0 H Eos % (Auto) 0.7 Baso % (Auto) 0.4 Neut # (Auto) 7.9 H Lymph # (Auto) 0.9 L [place] # (Auto) 1.0 H Eos # (Auto) 0.1 Baso # (Auto) 0.0 WBC Differential . Differential Comment Auto diff final Sodium 142 Potassium 4.0 Chloride 101 Carbon Dioxide 34.0 H Anion Gap 7 BUN 29 H Creatinine 1.70 H Estimated GFR 42 L Random Glucose 88 Calcium 7.9 L Assessment and Plan - Plan A/P - VT- s/p ablation/ impella placement continue Amiodarone,Mexitil and Coreg- cardiology follow- up appreciated and cleared for discharge. -chronic systolic CHF- compensated; continue diuretic and BB- no SERVANDO due to low- normal BP's. -generalized weakness- seen by PT; recommended rehab; will consult case management. -CKD- fairly stable- will monitor. -COPD with no exacerbation; neb treatment -DVT prophylaxis with subq Lovenox. transfer to floor. Discharge Planning: dc planning; rehab within the next 24 hrs.
[2018-06-07] MEDS: Pregabalin 25 MG Capsule PO SCH ×3 (09:27→18:09)
[2018-06-07] MEDS: Famotidine PF Inj 20 MG/2 ML Vial IV.PUSH SCH ×2 (09:29→20:11)
[2018-06-07] MEDS: Senna/Docusate Sodium 8.6/50 MG Tablet PO SCH ×2 (09:29→20:11)
[2018-06-07] MEDS: Allopurinol 300 MG Tablet PO SCH (09:29)
[2018-06-07] MEDS: Carvedilol 6.25 MG Tablet PO SCH ×2 (09:30→20:10)
[2018-06-07] MEDS: Enoxaparin Inj 40 MG/0.4 ML Syringe SQ SCH (09:30)
[2018-06-07] MEDS: Lidocaine/D5W 2000 mg/500 mL 2,000 MG/500 ML BAG IV.CONT SCH (09:31)
--- NOTE | 2018-06-07 13:04 | P.PNCA ---
Subjective Interval history: No events overnight Up to the chair, overall weak No VT Physical Exam Vital signs: Vital Signs 06/06/18 13:10 06/06/18 16:00 06/06/18 20:00 Temperature 97.7 F 99.2 F Pulse Rate 62 62 Respiratory Rate 16 16 18 Blood Pressure 118/75 104/65 Pulse Oximetry 95 93 L 06/06/18 22:05 06/06/18 23:00 06/07/18 00:00 Temperature 98.3 F Pulse Rate 62 Respiratory Rate 20 18 Blood Pressure 95/65 L Pulse Oximetry 96 95 06/07/18 02:00 06/07/18 03:00 06/07/18 03:30 Temperature Pulse Rate 59 L Respiratory Rate Blood Pressure Pulse Oximetry 94 L 96 06/07/18 04:00 06/07/18 05:00 06/07/18 05:09 Temperature 98 F Pulse Rate 59 L Respiratory Rate 18 18 Blood Pressure 92/52 L Pulse Oximetry 95 96 06/07/18 06:00 06/07/18 07:00 06/07/18 08:00 Temperature 97.7 F Pulse Rate 64 Respiratory Rate 18 16 Blood Pressure 107/57 L Pulse Oximetry 94 L 94 L 06/07/18 11:31 06/07/18 11:35 Temperature 97.8 F Pulse Rate 59 L Respiratory Rate 16 16 Blood Pressure 107/65 Pulse Oximetry 95 Intake & Output 06/06/18 06/07/18 06/07/18 18:59 06:59 18:59 Intake Total 600 / 600 960 / 960 Output Total 1270 / 1270 800 / 800 Balance -670 / -670 160 / 160 Weight 110.5 kg Intake: Oral 600 / 600 960 / 960 Output: Urine 1270 / 1270 800 / 800 Other: Date of Last Bowel Movement 06/03/18 06/06/18 06/06/18 # Bowel Movements 0 0 Narrative: GENERAL: NAD, AAOx3 SKIN: Warm and dry. HEAD: Atraumatic. Normocephalic. EYES: Pupils equal and round. No scleral icterus. No injection or drainage. ENT: No nasal bleeding or discharge. Mucous membranes pink and moist. NECK: Trachea midline. No JVD. CARDIOVASCULAR: Regular rate and rhythm. RESPIRATORY: No accessory muscle use. Clear to auscultation. Breath sounds equal bilaterally. GASTROINTESTINAL: Abdomen soft, non-tender, nondistended. Hepatic and splenic margins not palpable. MUSCULOSKELETAL: Extremities without clubbing, cyanosis, or edema. No obvious deformities. Extremities: Right groin with no hematoma, distal pulses palpable. Left groin with no change from previous ecchymosis, distal pulses palpable NEUROLOGICAL: Awake and alert. No obvious cranial nerve deficits. Motor grossly within normal limits. Five out of 5 muscle strength in the arms and legs. Normal speech. PSYCHIATRIC: Appropriate mood and affect; insight and judgment normal. - Urinary Catheter Management Indwelling Urethral Catheter Cath placed during this visit: yes, but has since been removed by the nurse Reason for continuing: Not indwelling catheter Insertion date: 06/03/18 Insertion time: 13:30 Removal date: 06/06/18 Removal time: 09:12 Assessment and Plan - Assessment (1) Chronic systolic CHF (congestive heart failure) Code(s): I50.22 - Chronic systolic (congestive) heart failure Status: Acute (2) Defibrillator discharge Code(s): Z45.02 - Encounter for adjustment and management of automatic implantable cardiac defibrillator Status: Acute (3) Sustained ventricular tachycardia Code(s): I47.2 - Ventricular tachycardia Status: Acute - Plan 1) Recurrent VT No further VT after ablation 2) Impella 2.5 placement for VT ablation and removal Pulses intact Both feet warm Groins doing well Hgb drop secondary to the procedure, stable since yesterday 3) Chronic systolic heart failure 4) Overall weak Plan on rehab 5) Nothing more from my stance Discussed with Dr. Grider, plan for him to go on Amiodarone, Mexiletine and Coreg at current doses Will follow up with Dr. Grider in a few weeks
[2018-06-08] MEDS: Temazepam 15 MG Capsule PO PRN (00:29)
[2018-06-08] MEDS: Chlorhexidine Gluconate 2% 1 Pack (2 Cloths) TOPICAL SCH (05:24)
[2018-06-08] MEDS: Lidocaine/D5W 2000 mg/500 mL 2,000 MG/500 ML BAG IV.CONT SCH (05:27)
[2018-06-08] MEDS: Amiodarone 200 MG Tablet PO SCH ×2 (06:24→18:03)
[2018-06-08] MEDS: Senna/Docusate Sodium 8.6/50 MG Tablet PO SCH ×2 (08:51→20:27)
[2018-06-08] MEDS: Allopurinol 300 MG Tablet PO SCH (08:51)
[2018-06-08] MEDS: Pregabalin 25 MG Capsule PO SCH ×3 (08:52→18:03)
[2018-06-08] MEDS: Famotidine PF Inj 20 MG/2 ML Vial IV.PUSH SCH ×2 (08:53→20:28)
[2018-06-08] MEDS: Carvedilol 6.25 MG Tablet PO SCH ×2 (08:55→20:28)
[2018-06-08] MEDS: Enoxaparin Inj 40 MG/0.4 ML Syringe SQ SCH (08:55)
--- NOTE | 2018-06-08 11:00 | P.PN ---
Subjective Interval history: Patient is seen sitting up eating breakfast. is present in room. He tells me he feels significantly better today. He has been able to walk around the floor without any chest pain or shortness of breath. No syncope or dizziness. He is very happy that he is not gotten shocked. Has not had any nausea vomiting or diarrhea. He is tolerating his well. Normal urination and bowel movements. He very much would like to go home rather than going to rehab. Physical Exam Vital signs: Vital Signs 06/07/18 11:31 06/07/18 11:35 06/07/18 13:10 Temperature 97.8 F Pulse Rate 59 L Respiratory Rate 16 16 Blood Pressure 107/65 Pulse Oximetry 95 97 06/07/18 15:00 06/07/18 16:00 06/07/18 18:14 Temperature 98.7 F Pulse Rate 59 L Respiratory Rate 16 16 Blood Pressure 112/70 Pulse Oximetry 93 L 93 L 06/07/18 20:00 06/08/18 00:00 06/08/18 03:55 Temperature 97.9 F 97.4 F L Pulse Rate 60 60 63 Respiratory Rate 19 19 Blood Pressure 118/61 104/61 Pulse Oximetry 96 97 06/08/18 04:00 06/08/18 08:00 06/08/18 08:38 Temperature 97.9 F 97.3 F L Pulse Rate 62 62 Respiratory Rate 18 20 Blood Pressure 100/62 118/69 Pulse Oximetry 95 97 95 Intake & Output 06/07/18 06/08/18 06/08/18 18:59 06:59 18:59 Intake Total 800 / 800 240 / 240 Output Total 600 / 600 550 / 550 Balance 200 / 200 -310 / -310 Weight 112.3 kg Intake: Oral 800 / 800 240 / 240 Output: Urine 600 / 600 550 / 550 Other: Date of Last Bowel Movement 06/06/18 06/07/18 06/07/18 # Bowel Movements 0 Narrative: GENERAL: NAD, AAOx3 SKIN: Warm and dry. HEAD: Atraumatic. Normocephalic. NECK: Trachea midline. No JVD. CARDIOVASCULAR: Regular rate and rhythm. RESPIRATORY: No accessory muscle use. Clear to auscultation. Breath sounds equal bilaterally. GASTROINTESTINAL: Abdomen soft, non-tender, nondistended. MUSCULOSKELETAL: Extremities without clubbing, cyanosis, or edema. No obvious deformities. Extremities: Right groin with no hematoma, distal pulses palpable. Left groin with ecchymosis, distal pulses palpable NEUROLOGICAL: Awake and alert. No obvious cranial nerve deficits. Motor grossly within normal limits. Five out of 5 muscle strength in the arms and legs. Normal speech. PSYCHIATRIC: Appropriate mood and affect; insight and judgment normal. - Urinary Catheter Management Indwelling Urethral Catheter Cath placed during this visit: yes, but has since been removed by the nurse Reason for continuing: Not indwelling catheter Insertion date: 06/03/18 Insertion time: 13:30 Removal date: 06/06/18 Removal time: 09:12 Results - Labs CBC & Chem 7: 06/07/18 05:05 06/07/18 05:05 Assessment and Plan - Plan - VT- s/p ablation/ impella placement continue Amiodarone,Mexitil and Coreg- cardiology has cleared for discharge. -chronic systolic CHF- compensated; continue diuretic and BB- no SERVANDO due to low- normal BP's. -generalized weakness- seen by PT; initial recommended rehab; will consult case management. -CKD- fairly stable- will monitor. -COPD with no exacerbation; neb treatment -DVT prophylaxis with subq Lovenox. Discussed with: Patient, nurse, , Dr. Boykin Discharge planning: Patient would like to go home with home health. Awaiting PT re-evaluation.
--- NOTE | 2018-06-08 13:51 | P.PNCA ---
Subjective Interval history: Feeling much better Up and walking without pain Physical Exam Vital signs: Vital Signs 06/07/18 15:00 06/07/18 16:00 06/07/18 18:14 Temperature 98.7 F Pulse Rate 59 L Respiratory Rate 16 16 Blood Pressure 112/70 Pulse Oximetry 93 L 93 L 06/07/18 20:00 06/08/18 00:00 06/08/18 03:55 Temperature 97.9 F 97.4 F L Pulse Rate 60 60 63 Respiratory Rate 19 19 Blood Pressure 118/61 104/61 Pulse Oximetry 96 97 06/08/18 04:00 06/08/18 08:00 06/08/18 08:38 Temperature 97.9 F 97.3 F L Pulse Rate 62 62 Respiratory Rate 18 20 Blood Pressure 100/62 118/69 Pulse Oximetry 95 97 95 06/08/18 12:00 Temperature 97.2 F L Pulse Rate 63 Respiratory Rate 20 Blood Pressure 112/72 Pulse Oximetry 95 Intake & Output 06/07/18 06/08/18 06/08/18 18:59 06:59 18:59 Intake Total 800 / 800 240 / 240 Output Total 600 / 600 550 / 550 Balance 200 / 200 -310 / -310 Weight 112.3 kg Intake: Oral 800 / 800 240 / 240 Output: Urine 600 / 600 550 / 550 Other: Date of Last Bowel Movement 06/06/18 06/07/18 06/07/18 # Bowel Movements 0 Narrative: GENERAL: NAD, AAOx3 SKIN: Warm and dry. HEAD: Atraumatic. Normocephalic. NECK: Trachea midline. No JVD. CARDIOVASCULAR: Regular rate and rhythm. RESPIRATORY: No accessory muscle use. Clear to auscultation. Breath sounds equal bilaterally. GASTROINTESTINAL: Abdomen soft, non-tender, nondistended. MUSCULOSKELETAL: Extremities without clubbing, cyanosis, or edema. No obvious deformities. Extremities: Right groin with no hematoma, distal pulses palpable. Left groin with ecchymosis, distal pulses palpable NEUROLOGICAL: Awake and alert. No obvious cranial nerve deficits. Motor grossly within normal limits. Five out of 5 muscle strength in the arms and legs. Normal speech. PSYCHIATRIC: Appropriate mood and affect; insight and judgment normal. - Urinary Catheter Management Indwelling Urethral Catheter Cath placed during this visit: yes, but has since been removed by the nurse Reason for continuing: Not indwelling catheter Insertion date: 06/03/18 Insertion time: 13:30 Removal date: 06/06/18 Removal time: 09:12 Assessment and Plan - Assessment (1) Chronic systolic CHF (congestive heart failure) Code(s): I50.22 - Chronic systolic (congestive) heart failure Status: Acute (2) Defibrillator discharge Code(s): Z45.02 - Encounter for adjustment and management of automatic implantable cardiac defibrillator Status: Acute (3) Sustained ventricular tachycardia Code(s): I47.2 - Ventricular tachycardia Status: Acute - Plan 1) Recurrent VT No further VT after ablation 2) Impella 2.5 placement for VT ablation and removal Pulses intact Both feet warm Groins doing well Hgb drop secondary to the procedure, stable 3) Chronic systolic heart failure 4) Overall weak Somewhat resolved Repeat PT evaluation 5) Nothing more from my stance Discussed with Dr. Grider, plan for him to go on Amiodarone, Mexiletine and Coreg at current doses Will follow up with Dr. Grider in a few weeks Will see PRN, call with questions
[2018-06-08] MEDS: ALPRAZolam 0.5 MG Tablet PO PRN (14:48)
--- NOTE | 2018-06-09 01:57 | CT ---
EXAM DATE: 06/09/2018 1:39 AM EDT AGE/SEX: 57 years / Male INDICATIONS: Chest pain and short of breath. CLINICAL DATA: This is the patient's initial encounter. Patient reports that signs and symptoms have been present for 1 day and indicates a pain score of 6/10. MEDICAL/SURGICAL HISTORY: Cardiovascular disease. Renal failure, chronic. Chronic obstructive pul monary disease. CABG. RADIATION DOSE: 10.68 CTDI (mGy) COMPARISON: No prior exams available for comparison. TECHNIQUE: Volumetric scanning was performed using a multi-row detector CT scanner during bolus infu sallie of 50 ml Omnipaque 350 (iohexol) nonionic water-soluble contrast as a single exam dose. The yesika a was post processed with a variety of visualization algorithms including full volume maximum intensi ty projection and sliding thin slab reformation. Using automated exposure control and adjustment of the mA and/or kV according to patient size, radiation dose was kept as low as reasonably achievable t o obtain optimal diagnostic quality images. DICOM format image data is available electronically for review and comparison. FINDINGS: Pulmonary Arteries: No filling defect is identified through the segmental and some of the subsegmenta l level pulmonary arteries. Lungs: There is opacity at the right lung base/right lower lobe representing either atelectasis or c onsolidation. The configuration favors round atelectasis. There is linear subsegmental atelectasis ve rsus scar at the left lung base. No pneumothorax is present. Mediastinum: The heart and great vessels demonstrate no acute abnormality. No lymphadenopathy is vis ualized. There is coronary artery calcification and atherosclerotic disease of the aorta. Left chest wall cardiac pacing device is present with lead tips in the right heart and the coronary sinus overly ing the left heart. Clips are present in the anterior mediastinum related to prior CABG. Pleurae: There is a complex pleural effusion versus pleural thickening in the inferior posterior rig ht hemithorax. Calcified pleural plaques are present bilaterally, left greater than right. Axillae: No lymphadenopathy. Musculoskeletal: No acute osseous abnormality is identified. There are degenerative changes of the t horacic spine. Median sternotomy wires are present. Other: Visualized upper abdominal structures demonstrate no acute abnormality. CONCLUSION: 1. No PE is identified. 2. There is suspected round atelectasis in the right lower lobe and atelectasis versus scar at the l eft lung base. 3. Complex small pleural effusion with likely pleural thickening in the inferior right hemithorax. T here is calcified pleural thickening bilaterally. All of these findings may be related to prior asbes tos exposure. Electronically signed by: Pj Arellano MD 06/09/2018 1:55 AM EDT
[2018-06-09] MEDS: ALPRAZolam 0.5 MG Tablet PO PRN ×2 (03:39→22:04)
[2018-06-09] MEDS: Lidocaine/D5W 2000 mg/500 mL 2,000 MG/500 ML BAG IV.CONT SCH (05:17)
[2018-06-09] MEDS: Amiodarone 200 MG Tablet PO SCH ×2 (06:38→18:21)
[2018-06-09 06:50] LABS: Calcium 8.2 mg/dL (8.5-10.1); Carbon Dioxide 33.7 meq/L (21.0-32.0); Potassium 4.1 meq/L (3.5-5.1)
[2018-06-09 06:54] LABS: Troponin I 0.3 ng/mL (0.02-0.05)
[2018-06-09] MEDS: Enoxaparin Inj 40 MG/0.4 ML Syringe SQ SCH (08:37)
[2018-06-09] MEDS: Carvedilol 6.25 MG Tablet PO SCH ×2 (08:38→21:16)
[2018-06-09] MEDS: Senna/Docusate Sodium 8.6/50 MG Tablet PO SCH ×2 (08:38→21:16)
[2018-06-09] MEDS: Allopurinol 300 MG Tablet PO SCH (08:38)
[2018-06-09] MEDS: Pregabalin 25 MG Capsule PO SCH ×3 (08:39→17:25)
[2018-06-09] MEDS: Famotidine PF Inj 20 MG/2 ML Vial IV.PUSH SCH ×2 (08:39→21:16)
--- NOTE | 2018-06-09 12:34 | ECG ---
Date Performed: 06/08/2018 Time Performed: 21:34:01 PTAGE: 57 years EKG: ELECTRONIC ATRIAL PACEMAKER ELECTRONIC VENTRICULAR PACEMAKER ABNORMAL RHYTHM ECG Since PREVIOUS TRACING , no significant change noted PREVIOUS TRACIN06/08/2018 15.15 DOCTOR: Anca Jaime Interpretating Date/Time 06/09/2018 12:32:51
--- NOTE | 2018-06-09 13:09 | ECG ---
Date Performed: 06/08/2018 Time Performed: 15:15:01 PTAGE: 57 years EKG: ELECTRONIC ATRIAL PACEMAKER ELECTRONIC VENTRICULAR PACEMAKER Compared to previous tracing, patient has developed some septal ST depression that is nonspecific in the setting of the paced ventr icular rhythm, but clinical correlation would be useful. ABNORMAL ECG PREVIOUS TRACING : 06/05/2018 07.47 DOCTOR: Anca Jaime Interpretating Date/Time 06/09/2018 13:07:51
--- NOTE | 2018-06-09 17:32 | P.PNIM ---
Subjective Interval history: 57-year-old male admitted with ventricular tachycardia, now status post ablation procedure. He developed chest pain late yesterday afternoon and was worked up for possible DVT versus cardiac cause versus GI causes versus anxiety. Today he states he feels better, no recurrence of pain, but he is not feeling 100% yet. Physical Exam Vital signs: Vital Signs 06/08/18 19:55 06/08/18 20:00 06/09/18 00:00 Temperature 97.4 F L 97.5 F L Pulse Rate 74 60 59 L Respiratory Rate 19 17 Blood Pressure 124/79 122/81 Pulse Oximetry 99 94 L 06/09/18 04:00 06/09/18 04:05 06/09/18 08:00 Temperature 98 F 97.5 F L Pulse Rate 63 59 L 59 L Respiratory Rate 19 17 Blood Pressure 149/72 H 118/63 Pulse Oximetry 97 96 06/09/18 09:45 06/09/18 12:00 Temperature 97.6 F Pulse Rate 63 Respiratory Rate 17 Blood Pressure 108/59 L Pulse Oximetry 97 97 Intake & Output 06/08/18 06/09/18 06/09/18 18:59 06:59 18:59 Intake Total 480 / 480 240 / 240 Output Total 1500 / 1500 700 / 700 Balance -1020 / -1020 -460 / -460 Weight 112.4 kg Intake: Oral 480 / 480 240 / 240 Output: Urine 1500 / 1500 700 / 700 Other: Date of Last Bowel Movement 06/07/18 06/09/18 # Bowel Movements 1 Narrative: GENERAL: NAD, AAOx3 SKIN: Warm and dry. HEAD: Atraumatic. Normocephalic. NECK: Trachea midline. No JVD. CARDIOVASCULAR: Regular rate and rhythm. RESPIRATORY: No accessory muscle use. Clear to auscultation. Breath sounds equal bilaterally. GASTROINTESTINAL: Abdomen soft, non-tender, nondistended. MUSCULOSKELETAL: Extremities without clubbing, cyanosis, or edema. No obvious deformities. Extremities: Right groin with no hematoma, distal pulses palpable. Left groin with ecchymosis, distal pulses palpable NEUROLOGICAL: Awake and alert. No obvious cranial nerve deficits. Motor grossly within normal limits. Five out of 5 muscle strength in the arms and legs. Normal speech. PSYCHIATRIC: Appropriate mood and affect; insight and judgment normal. - Urinary Catheter Management Indwelling Urethral Catheter Cath placed during this visit: yes, but has since been removed by the nurse Reason for continuing: Not indwelling catheter Insertion date: 06/03/18 Insertion time: 13:30 Removal date: 06/06/18 Removal time: 09:12 Results - Labs CBC & Chem 7: 06/07/18 05:05 06/09/18 04:34 Laboratory Results - last 24 hr 06/09/18 06/09/18 00:07 04:34 Sodium 141 Potassium 4.1 Chloride 100 Carbon Dioxide 33.7 H Anion Gap 7 BUN 33 H Creatinine 1.60 H Estimated GFR 45 L Random Glucose 82 Calcium 8.2 L Troponin I 0.36 H 0.30 H - Imaging Impressions Chest CTA 06/09/18 00:00 CONCLUSION: 1. No PE is identified. 2. There is suspected round atelectasis in the right lower lobe and atelectasis versus scar at the left lung base. 3. Complex small pleural effusion with likely pleural thickening in the inferior right hemithorax. There is calcified pleural thickening bilaterally. All of these findings may be related to prior asbestos exposure. Assessment and Plan - Plan Ventricular tachycardia Status post ablation, Impella placement Continue amiodarone, Mexitil, Coreg Cleared for discharge per cardiology Chest pain Elevated d-dimer, but CT angiogram was negative Elevated troponin, but expected following ablation procedure, no trend upward Cover for GI causes Covered for anxiety Generalized weakness Patient was seen by PT, rehab recommended He became slightly more week and following his emotional disturbance from the chest pain yesterday DVT prophylaxis Lovenox Discharge planning Patient is able to ambulate and feeling more at ease tomorrow, plan for discharge to rehab
[2018-06-10] MEDS: Temazepam 15 MG Capsule PO PRN (00:59)
[2018-06-10] MEDS: Lidocaine/D5W 2000 mg/500 mL 2,000 MG/500 ML BAG IV.CONT SCH (05:42)
[2018-06-10] MEDS: Amiodarone 200 MG Tablet PO SCH (06:02)
[2018-06-10] MEDS: Famotidine PF Inj 20 MG/2 ML Vial IV.PUSH SCH (08:20)
[2018-06-10] MEDS: Pregabalin 25 MG Capsule PO SCH ×2 (08:21→12:48)
[2018-06-10] MEDS: Senna/Docusate Sodium 8.6/50 MG Tablet PO SCH (08:21)
[2018-06-10] MEDS: Enoxaparin Inj 40 MG/0.4 ML Syringe SQ SCH (08:22)
[2018-06-10] MEDS: Carvedilol 6.25 MG Tablet PO SCH (08:22)
[2018-06-10] MEDS: Allopurinol 300 MG Tablet PO SCH (08:22)
[2018-06-10 09:58] VITALS: RESP 20
--- NOTE | 2018-06-10 12:17 | P.DCO ---
- Physical Therapy Order: Evaluate and treat, Improve ambulation, Strength and gait training - Occupational Therapy Order: Evaluate and treat, Improve ADL, Gross motor coordination, Fine motor coordination - Home Health Nursing Order: Signs/symptoms of disease process, Oxygen administration education, Medication education-adverse effect, Nursing assessment with vital signs, Telehealth - Home Health Aide Order: To assist in: Bathing and personal care, rn staffing and meal prep - Certification I have seen patient Rob Rodriguez on 06/10/18. My clinical findings support the need for the requested home health care services because: Limited mobility due to disease progression, Patient has SOB, Deconditioned with increased weakness, Medication compliance is questionable, High risk of falls I certify that my clinical findings support that this patient is homebound because: Post-op weakness, Hx COPD - exertion dyspnea/weakness, Unsteady gait/balance
--- NOTE | 2018-06-10 12:23 | P.PNIM ---
Subjective Interval history: Patient is a 57-year-old male with past medical history of recurrent ventricular tachycardia, history of multiple ablation procedures in the past, last ablation performed by Dr. Grider on of last week, AICD replacement last week, CAD status post CABG 2, COPD who was brought to the emergency department by EMS due to defibrillator firing. He was discharged home only yesterday. He had an episode of syncope today, woke up with the defibrillator firing. He presented to the ED with recurrent defibrillator firing and chest pain. EKG in the ED confirmed ventricular tachycardia. Dr. Ac in ED discussed with Dr. Doan who happened to be in the ED. A magnet was placed over the AICD to deactivate and patient was given multiple IV pushes of metoprolol until V. tach was controlled. Critical care medicine consulted for admission. I advised 150 mg amiodarone bolus followed by amiodarone infusion per protocol and holding p.o. amiodarone. In addition to metoprolol patient also received and lidocaine IVP in the ED I evaluated the patient in the CVICU. He appears in moderate distress and nervous. I will continue amiodarone infusion for now. Coreg 12.5 mg now and 6.25 mg every 12 ordered. I have discussed with Dr. Grider who will see the patient soon. The [employer] rep did interrogate the AICD SUBJ 06/04/18: Seen by Dr. Grider EP yesterday. He added mexiletine 200 mg p.o. 3 times daily. Coreg was started earlier. Had been weaned off the amiodarone infusion yesterday. Overnight patient developed ventricular tachycardia again 4 and was shocked several times. Received IV push lidocaine 2 and currently is on lidocaine infusion. Last episode of ventricular tachycardia around [address] Grider 06/05/18: Underwent attempted V. tach ablation yesterday by Dr. Grider. s/p Implantation and explantation of Impella 2.5 heart assist device to assist during ventricular tachycardia ablation by Dr. Perez. I am unable to review a procedure note as it is not available in the system. Overnight patient did not have any runs of V. tach, only few PVCs. Currently on Coreg, mexiletine, amiodarone 8-31F/u; VT in no acute distress. no chest pain or sob. TRANSFERRED TO OUR SERVICE 9-1 f/u; VT in no acute distress. no chest pain or sob. but feels weak. had a BM . d/w the RN and no other acute issues over night. 9-2 Patient is seen sitting up eating breakfast. is present in room. He tells me he feels significantly better today. He has been able to walk around the floor without any chest pain or shortness of breath. No syncope or dizziness. He is very happy that he is not gotten shocked. Has not had any nausea vomiting or diarrhea. He is tolerating his well. Normal urination and bowel movements. He very much would like to go home rather than going to rehab. 9-3 57-year-old male admitted with ventricular tachycardia, now status post ablation procedure. He developed chest pain late yesterday afternoon and was worked up for possible DVT versus cardiac cause versus GI causes versus anxiety. Today he states he feels better, no recurrence of pain, but he is not feeling 100% yet. 9-4 WANTS TO GO HOME TODAY DW RN AND PT AND CM WANTS [facility] DOES NOT WANT TO GO TO SNF STATES HAS HELP AT HOME STATES IS A RN STATES IS ON OXYGEN AT HOME REFUSED SNF WANTS TO GO HOME TODAY Physical Exam Vital signs: Vital Signs 06/09/18 16:00 06/09/18 19:00 06/09/18 19:50 Temperature 98.1 F Pulse Rate 59 L 63 Respiratory Rate 17 Blood Pressure 113/63 Pulse Oximetry 98 100 06/09/18 20:00 06/09/18 20:40 06/09/18 23:54 Temperature 97.6 F Pulse Rate 62 80 60 Respiratory Rate 21 20 Blood Pressure 129/77 Pulse Oximetry 97 06/10/18 00:00 06/10/18 04:00 06/10/18 04:23 Temperature 97.4 F L 97.7 F Pulse Rate 66 64 60 Respiratory Rate 20 21 Blood Pressure 114/67 112/67 Pulse Oximetry 97 96 06/10/18 08:00 Temperature 97.1 F L Pulse Rate 60 Respiratory Rate 20 Blood Pressure 141/59 H Pulse Oximetry 95 Intake & Output 06/09/18 06/10/18 06/10/18 18:59 06:59 18:59 Intake Total 720 / 720 720 / 720 Output Total 1200 / 1200 900 / 900 350 / 350 Balance -480 / -480 -180 / -180 -350 / -350 Weight 113 kg Intake: Oral 720 / 720 720 / 720 Output: Urine 1200 / 1200 900 / 900 350 / 350 Other: Date of Last Bowel Movement 06/09/18 06/09/18 # Bowel Movements 1 Narrative: GENERAL: NAD, AAOx3 SKIN: Warm and dry. HEAD: Atraumatic. Normocephalic. NECK: Trachea midline. No JVD. CARDIOVASCULAR: Regular rate and rhythm. RESPIRATORY: No accessory muscle use. Clear to auscultation. Breath sounds equal bilaterally. GASTROINTESTINAL: Abdomen soft, non-tender, nondistended. MUSCULOSKELETAL: Extremities without clubbing, cyanosis, or edema. No obvious deformities. Extremities: Right groin with no hematoma, distal pulses palpable. Left groin with ecchymosis, distal pulses palpable NEUROLOGICAL: Awake and alert. No obvious cranial nerve deficits. Motor grossly within normal limits. Five out of 5 muscle strength in the arms and legs. Normal speech. PSYCHIATRIC: Appropriate mood and affect; insight and judgment normal. - Urinary Catheter Management Indwelling Urethral Catheter Cath placed during this visit: yes, but has since been removed by the nurse Reason for continuing: Not indwelling catheter Insertion date: 06/03/18 Insertion time: 13:30 Removal date: 06/06/18 Removal time: 09:12 Results - Labs CBC & Chem 7: 06/07/18 05:05 06/09/18 04:34 Laboratory Tests 06/03/18 06/03/18 06/03/18 12:45 12:45 12:45 WBC 9.9 RBC 4.54 Hgb 13.3 Hct 40.7 MCV 89.6 MCH 29.3 MCHC 32.8 RDW 14.9 Plt Count 193 D MPV 8.9 Neut % (Auto) 77.8 H Lymph % (Auto) 9.1 Marathon % (Auto) 10.6 H Eos % (Auto) 1.9 Baso % (Auto) 0.6 Neut # (Auto) 7.7 Lymph # (Auto) 0.9 L [place] # (Auto) 1.1 H Eos # (Auto) 0.2 Baso # (Auto) 0.1 WBC Differential . Differential Comment Auto diff final PT 10.5 INR 1.0 APTT 25.4 D-Dimer Quant (PE/DVT) Sodium 141 Potassium 4.3 Chloride 96 L Carbon Dioxide 37.6 H Anion Gap 7 BUN 25 H Creatinine 1.68 H Estimated GFR 42 L Random Glucose 105 Calcium 9.2 Magnesium Total Bilirubin 0.8 AST 30 ALT 17 Alkaline Phosphatase 85 Troponin I 0.09 H Total Protein 7.8 D Albumin 3.2 L 06/03/18 06/03/18 06/03/18 12:45 17:17 17:17 WBC RBC Hgb Hct MCV MCH MCHC RDW Plt Count MPV Neut % (Auto) Lymph % (Auto) Marathon % (Auto) Eos % (Auto) Baso % (Auto) Neut # (Auto) Lymph # (Auto) Marathon # (Auto) Eos # (Auto) Baso # (Auto) WBC Differential Differential Comment PT INR APTT D-Dimer Quant (PE/DVT) Sodium Potassium Chloride Carbon Dioxide Anion Gap BUN Creatinine Estimated GFR Random Glucose Calcium Magnesium 2.3 2.5 Total Bilirubin AST ALT Alkaline Phosphatase Troponin I 0.10 H Total Protein Albumin 06/03/18 06/04/18 06/04/18 22:00 04:15 04:15 WBC 8.3 RBC 4.01 L Hgb 11.9 L Hct 35.7 L MCV 88.8 MCH 29.7 MCHC 33.4 RDW 14.9 Plt Count 177 MPV 8.4 Neut % (Auto) 76.4 H Lymph % (Auto) 9.8 Marathon % (Auto) 11.0 H Eos % (Auto) 2.1 Baso % (Auto) 0.7 Neut # (Auto) 6.3 Lymph # (Auto) 0.8 L [place] # (Auto) 0.9 Eos # (Auto) 0.2 Baso # (Auto) 0.1 WBC Differential . Differential Comment Auto diff final PT 10.9 INR 1.1 APTT D-Dimer Quant (PE/DVT) Sodium Potassium Chloride Carbon Dioxide Anion Gap BUN Creatinine Estimated GFR Random Glucose Calcium Magnesium Total Bilirubin AST ALT Alkaline Phosphatase Troponin I 0.08 H Total Protein Albumin 06/04/18 06/05/18 06/06/18 04:15 09:04 03:50 WBC 8.6 RBC 3.54 L Hgb 10.6 L Hct 32.2 L MCV 91.0 MCH 30.0 MCHC 33.0 RDW 15.0 Plt Count 153 MPV 8.5 Neut % (Auto) Lymph % (Auto) Marathon % (Auto) Eos % (Auto) Baso % (Auto) Neut # (Auto) Lymph # (Auto) Marathon # (Auto) Eos # (Auto) Baso # (Auto) WBC Differential Differential Comment PT INR APTT D-Dimer Quant (PE/DVT) Sodium 141 142 Potassium 3.9 4.6 Chloride 100 104 Carbon Dioxide 35.3 H 32.3 H Anion Gap 6 6 BUN 26 H 21 H Creatinine 1.53 H 1.26 Estimated GFR 47 L 59 L Random Glucose 91 97 Calcium 8.5 8.4 L Magnesium 2.3 2.8 H Total Bilirubin 0.6 0.5 AST 13 L 24 ALT 15 15 Alkaline Phosphatase 75 69 Troponin I Total Protein 6.4 D 6.0 L Albumin 2.8 L 2.7 L 06/06/18 06/07/18 06/07/18 03:50 05:05 05:05 WBC 9.9 RBC 3.45 L Hgb 10.3 L Hct 30.4 L MCV 88.1 MCH 29.9 MCHC 33.9 RDW 14.7 Plt Count 163 MPV 8.7 Neut % (Auto) 80.2 H Lymph % (Auto) 8.7 L Marathon % (Auto) 10.0 H Eos % (Auto) 0.7 Baso % (Auto) 0.4 Neut # (Auto) 7.9 H Lymph # (Auto) 0.9 L Marathon # (Auto) 1.0 H Eos # (Auto) 0.1 Baso # (Auto) 0.0 WBC Differential . Differential Comment Auto diff final PT INR APTT D-Dimer Quant (PE/DVT) Sodium 143 142 Potassium 4.4 4.0 Chloride 105 101 Carbon Dioxide 31.5 34.0 H Anion Gap 7 7 BUN 23 H 29 H Creatinine 1.48 H 1.70 H Estimated GFR 49 L 42 L Random Glucose 92 88 Calcium 8.4 L 7.9 L Magnesium 2.7 H Total Bilirubin 0.4 AST 13 L ALT 14 Alkaline Phosphatase 66 Troponin I Total Protein 5.9 L Albumin 2.5 L 06/08/18 06/08/18 06/09/18 16:08 16:08 00:07 WBC RBC Hgb Hct MCV MCH MCHC RDW Plt Count MPV Neut % (Auto) Lymph % (Auto) Marathon % (Auto) Eos % (Auto) Baso % (Auto) Neut # (Auto) Lymph # (Auto) Marathon # (Auto) Eos # (Auto) Baso # (Auto) WBC Differential Differential Comment PT INR APTT D-Dimer Quant (PE/DVT) 1.22 H Sodium Potassium Chloride Carbon Dioxide Anion Gap BUN Creatinine Estimated GFR Random Glucose Calcium Magnesium Total Bilirubin AST ALT Alkaline Phosphatase Troponin I 0.37 H 0.36 H Total Protein Albumin 06/09/18 04:34 WBC RBC Hgb Hct MCV MCH MCHC RDW Plt Count MPV Neut % (Auto) Lymph % (Auto) Marathon % (Auto) Eos % (Auto) Baso % (Auto) Neut # (Auto) Lymph # (Auto) [place] # (Auto) Eos # (Auto) Baso # (Auto) WBC Differential Differential Comment PT INR APTT D-Dimer Quant (PE/DVT) Sodium 141 Potassium 4.1 Chloride 100 Carbon Dioxide 33.7 H Anion Gap 7 BUN 33 H Creatinine 1.60 H Estimated GFR 45 L Random Glucose 82 Calcium 8.2 L Magnesium Total Bilirubin AST ALT Alkaline Phosphatase Troponin I 0.30 H Total Protein Albumin - Imaging ITS Impressions Chest X-Ray 06/03/18 12:54 CONCLUSION: Cardiomegaly and findings of vascular congestion without overt failure. The findings are improved when compared with the prior exam. Chest CTA 06/09/18 00:00 CONCLUSION: 1. No PE is identified. 2. There is suspected round atelectasis in the right lower lobe and atelectasis versus scar at the left lung base. 3. Complex small pleural effusion with likely pleural thickening in the inferior right hemithorax. There is calcified pleural thickening bilaterally. All of these findings may be related to prior asbestos exposure. - Procedures 06/04/2018 PROCEDURE: Insertion of short-term external heart assist system into heart, intraoperative, percutaneous approach, assistance with cardiac output using Impella pump continuous (CPT 29394, [id number], [id number]), explantation of Impella 2.5 heart assist device, Perclose bilateral groins. PREPROCEDURE DIAGNOSIS: Recurrent ventricular tachycardia for VT ablation, chronic systolic heart failure with an ejection fraction of 25-30%. POSTPROCEDURE DIAGNOSIS: Explantation of Impella device after VT ablation by Dr. Grider. BLOOD LOSS: 50 mL. INDICATIONS FOR PROCEDURE: Rob Rodriguez is a pleasant 57-year-old male who presented to [facility] due to recurrent VT. He has had previous ablations and continues to have ventricular tachycardia. He was evaluated by Dr. Grider for further considerations of VT ablation. Due to the difficulty with his previous ablation with VT, I was asked by Dr. Grider for implantation of an Impella device. Risks, benefits, and alternatives were explained to him and his and they were in agreement to proceed. DESCRIPTION OF PROCEDURE: The patient was brought to the lab and prepped in sterile fashion. Anesthesia sedated the patient. Left femoral artery was accessed with a micropuncture needle and a modified Seldinger technique. During the angiogram, this was infiltrated in the back wall of the vessel, but no dissection flap was noted. The vessel was large enough for Impella device and wire was intravascular and so this was exchanged out for a 6-Thai sheath. Two Percloses were used to pre-close the vessel. Sheath was exchanged out for the Impella sheath. A JR4 was advanced over a J-wire to the ascending aorta and across the aortic valve. Heparin was given as an anticoagulant. Impella wire was advanced into the left ventricle and the JR4 was removed. ACT was 250 and additional heparin was given and the Impella 2.5 was advanced into the left ventricle. The Impella was ramped up to a cardiac output of 2.5 liters per minute. Please see Dr. Grider's note for the VT ablation. After VT ablation was done, Impella was weaned off and the patient was hemodynamically stable. The Impella was removed. Left femoral sheath was removed with 2 Percloses used to close the vessel. I was asked by Dr. Grider to Perclose his right femoral artery sheath, which was 8-Thai. A Perclose was placed to close the right femoral artery. The patient left the forestry farm laborer cardiovascularly stable. IMPRESSION: 1. Ventricular tachycardia with recurrent VT, status post attempted VT ablation per Dr. Grider. 2. Implantation and explantation of Impella 2.5 heart assist device to assist during ventricular tachycardia. RECOMMENDATIONS: 1. Mr. Rodriguez underwent VT ablation per Dr. Grider and further recommendations will be made by him from an EP standpoint. 2. He will be taken back to the CVICU for further observation. Thank you for allowing me to see Rob Rodriguez. If there are any questions, please do not hesitate to call. Red Perez, DO 06/04/2018 PROCEDURE PERFORMED: Electrophysiology study with CS cannulation, intracardiac echo, 3-D mapping, radiofrequency ablation of ventricular tachycardia, and Impella insertion by Dr. Perez. Multiple cardioversion that was a very difficult and complex case. INDICATION: Mr. Rodriguez is a 57-year-old gentleman, congestive heart failure, cardiomyopathy, previous biventricular pacer defibrillator implanted, previous ventricular tachycardia ablation, admitted to the hospital due to a ventricular tachycardia storm. He was on lidocaine, mexiletine and amiodarone. Despite that, the gentleman has multiple shocks. Decision for ablation was taken. Because the patient has sustained VT, I decided to use Impella during the procedure. DESCRIPTION OF PROCEDURE: After informed consent was obtained, the patient was brought to the EP lab where he was prepped and draped in the usual sterile fashion. Conscious sedation was initiated and maintained throughout the procedure by the anesthesiologist. Once sedation was verified, the area of the right inguinal area was anesthetized with 2% Xylocaine. Using modified Seldinger technique, the right femoral vein was cannulated on 3 occasions. Two guidewires were advanced over the wire, two 6 and a 10-Thai Hemaquet were advanced and the right femoral artery was cannulated on one occasion; 1 guidewire was advanced over the wire, 8-Thai Hemaquet was advanced. At that point, Dr. Perez intervened in the left inguinal area. He did cannulate the left femoral vein. Perclose was placed as well as an Impella that was going with a cardiac index of 2.5. At that point, after the Impella placed, I decided to proceed with ablation. Through a 6-Thai Hemaquet, two 5-Thai Arsh curved quadripolar electrophysiology catheters were advanced and placed on the His, as well as coronary sinus. Through the 10-Thai Hemaquet, a [employer] AcuNav intracardiac echo catheter was placed at the right atrium. Multiple views obtained. There is no pericardial effusion and pulmonary vein were seen. Atrial septum visualized. An intracardiac echo catheter was placed at the right ventricular septum for good visualization of the left ventricle. There was severe anterior dyskinesia. Through the 8-Thai, the patient already received heparin. The goal is to keep an ACT around 300 msec. Through the 8-Thai Hemaquet, a Cordis Hernandez DF 3.5 mm irrigated tip bidirectional catheter was advanced. Using [employer] endocardial solution mapping system, a 3-dimensional configuration of the left ventricle was obtained. A fractionated signal activation was coming from the lateral portion of the left ventricle. I did ablate. Subsequently, ventricular tachycardia was induced. The patient was on pumping with the Impella. Then, the patient has a different tachyarrhythmia. At this time, the cycle length was around 430 msec. He was ablated. At the end of the tachyarrhythmia coming from the septal area. After multiple mapping, I did realize most likely this arrhythmia is coming from the epicardial area. Ablation was performed, but the tachyarrhythmia was pace terminated at the end of the day. At this point, I decided to discontinue the ablation. Two previous tachyarrhythmia were ablated. I will continue medical management. All catheters were removed. Intracardiac echo showed no pericardial effusion. Impella was removed by Dr. Perez and a Perclose was placed. That was a very complex case. No incident to report. The patient tolerated the procedure. Blood loss, maybe 100 mL. The biventricular pacer defibrillator was reprogrammed, the defibrillator portion on, and the device was a preprogram LV pacing. ELECTROCARDIOGRAM: 1. At baseline, the patient was in sinus rhythm. Postprocedure, the patient in sinus rhythm. 2. BASIC INTERVAL: Base cycle length was around 1100 msec. 3. Tachyarrhythmia. Ventricular tachycardia was mapped and ablated. At least 2 different arrhythmia was ablated. Ablation was successful. I was unable to ablate the epicardial tachyarrhythmia. RECOMMENDATION: Successful electrophysiology study, mapping atrophic examination of ventricular tachyarrhythmia. Hemodynamic maintenance with Impella, if the gentleman has another episode of tachyarrhythmia, then I will recommend sending to another tertiary center for epicardial ablation. For now, he is going to be transferred to the telemetry unit. We will observe. If stable and no further tachyarrhythmia in the next 24 hours, the patient will be discharged home. Neli Grider MD Assessment and Plan - Plan Ventricular tachycardia Status post ablation, Impella placement Continue amiodarone, Mexitil, Coreg Cleared for discharge per cardiology Chest pain Elevated d-dimer, but CT angiogram was negative Elevated troponin, but expected following ablation procedure, no trend upward Cover for GI causes Covered for anxiety Generalized weakness Patient was seen by PT, rehab recommended He became slightly more week and following his emotional disturbance from the chest pain yesterday STABLE DC TO HOME WITH [facility] DVT prophylaxis Lovenox Discharge planning Patient is able to ambulate and feeling more at ease tomorrow, plan for discharge to HOME WITH [facility] Code Status: FULL CODE Discussed Condition With: RN AND PT AND CM Discharge Planning: DC TO HOME TODAY
--- NOTE | 2018-06-10 12:51 | P.DS ---
Date of admission: 06/03/18 13:14 Primary care physician: UNKNOWN Attending physician on discharge: Anli Kenyon Anticipated date of discharge: 06/10/18 Brief History from admission: Patient is a 57-year-old male with past medical history of recurrent ventricular tachycardia, history of multiple ablation procedures in the past, last ablation performed by Dr. Grider on of last week, AICD replacement last week, CAD status post CABG 2, COPD who was brought to the emergency department by EMS due to defibrillator firing. He was discharged home only yesterday. He had an episode of syncope today, woke up with the defibrillator firing. He presented to the ED with recurrent defibrillator firing and chest pain. EKG in the ED confirmed ventricular tachycardia. Dr. Ac in ED discussed with Dr. Doan who happened to be in the ED. A magnet was placed over the AICD to deactivate and patient was given multiple IV pushes of metoprolol until V. tach was controlled. Critical care medicine consulted for admission. I advised 150 mg amiodarone bolus followed by amiodarone infusion per protocol and holding p.o. amiodarone. In addition to metoprolol patient also received and lidocaine IVP in the ED I evaluated the patient in the CVICU. He appears in moderate distress and nervous. I will continue amiodarone infusion for now. Coreg 12.5 mg now and 6.25 mg every 12 ordered. I have discussed with Dr. Grider who will see the patient soon. The [employer] rep did interrogate the AICD Patient update on day of discharge: Patient is a 57-year-old male with past medical history of recurrent ventricular tachycardia, history of multiple ablation procedures in the past, last ablation performed by Dr. Grider on of last week, AICD replacement last week, CAD status post CABG 2, COPD who was brought to the emergency department by EMS due to defibrillator firing. He was discharged home only yesterday. He had an episode of syncope today, woke up with the defibrillator firing. He presented to the ED with recurrent defibrillator firing and chest pain. EKG in the ED confirmed ventricular tachycardia. Dr. Ac in ED discussed with Dr. Doan who happened to be in the ED. A magnet was placed over the AICD to deactivate and patient was given multiple IV pushes of metoprolol until V. tach was controlled. Critical care medicine consulted for admission. I advised 150 mg amiodarone bolus followed by amiodarone infusion per protocol and holding p.o. amiodarone. In addition to metoprolol patient also received and lidocaine IVP in the ED I evaluated the patient in the CVICU. He appears in moderate distress and nervous. I will continue amiodarone infusion for now. Coreg 12.5 mg now and 6.25 mg every 12 ordered. I have discussed with Dr. Grider who will see the patient soon. The [employer] rep did interrogate the AICD SUBJ 06/04/18: Seen by Dr. Grider EP yesterday. He added mexiletine 200 mg p.o. 3 times daily. Coreg was started earlier. Had been weaned off the amiodarone infusion yesterday. Overnight patient developed ventricular tachycardia again 4 and was shocked several times. Received IV push lidocaine 2 and currently is on lidocaine infusion. Last episode of ventricular tachycardia around [address] Grider 06/05/18: Underwent attempted V. tach ablation yesterday by Dr. Grider. s/p Implantation and explantation of Impella 2.5 heart assist device to assist during ventricular tachycardia ablation by Dr. Perez. I am unable to review a procedure note as it is not available in the system. Overnight patient did not have any runs of V. tach, only few PVCs. Currently on Coreg, mexiletine, amiodarone 8-31F/u; VT in no acute distress. no chest pain or sob. TRANSFERRED TO OUR SERVICE 9-1 f/u; VT in no acute distress. no chest pain or sob. but feels weak. had a BM . d/w the RN and no other acute issues over night. 9-2 Patient is seen sitting up eating breakfast. is present in room. He tells me he feels significantly better today. He has been able to walk around the floor without any chest pain or shortness of breath. No syncope or dizziness. He is very happy that he is not gotten shocked. Has not had any nausea vomiting or diarrhea. He is tolerating his well. Normal urination and bowel movements. He very much would like to go home rather than going to rehab. 9-3 57-year-old male admitted with ventricular tachycardia, now status post ablation procedure. He developed chest pain late yesterday afternoon and was worked up for possible DVT versus cardiac cause versus GI causes versus anxiety. Today he states he feels better, no recurrence of pain, but he is not feeling 100% yet. 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 RN STATES IS ON OXYGEN AT HOME REFUSED SNF WANTS TO GO HOME TODAY DS: Diagnosis - Discharge Diagnosis (1) Chest pain Status: Acute (2) Chronic systolic CHF (congestive heart failure) Status: Acute (3) Defibrillator discharge Status: Acute (4) Sustained ventricular tachycardia Status: Acute DS: Medications - Discharge Medications Prescriptions: albuterol sulfate [ProAir HFA] 1 puff INHALATION Q6H PRN #1 inh PRN Reason: Shortness Of Breath allopurinol 300 mg PO DAILY #30 tab alprazolam [Xanax] 0.5 mg PO Q6H PRN #60 tab PRN Reason: Anxiety amiodarone 200 mg PO BID #60 tab aspirin 81 mg PO DAILY #30 tab atorvastatin 80 mg PO DAILY #30 tab bumetanide 2 mg PO DAILY #30 tab carvedilol [Coreg] 12.5 mg PO BID #60 tab clopidogrel [Plavix] 75 mg PO DAILY #30 tab formoterol fumarate 12 mcg INHALATION PRN PRN #60 amp PRN Reason: Shortness Of Breath hydrocodone-acetaminophen 1 tab PO Q6H PRN #12 tab PRN Reason: PAIN 6-10 ipratropium-albuterol 1 amp NEB Q2HR NEB PRN #180 amp PRN Reason: Wheezing mexiletine 400 mg PO Q8H #180 cap nitroglycerin [Nitrostat] 0.4 mg SUBLINGUAL Q5-15M PRN #100 tab PRN Reason: Chest Pain potassium chloride 20 meq PO DAILY #30 tab pregabalin [Lyrica] 50 mg PO TID #90 cap ranitidine HCl 75 mg PO DAILY #30 tab sennosides-docusate sodium [Senna Plus] 2 tab PO BID #120 tab tamsulosin 0.4 mg PO BID #30 tab tramadol 50 mg PO Q8H PRN #6 tab PRN Reason: acute pain DS: Summary Hospital Course: Patient is a 57-year-old male with past medical history of recurrent ventricular tachycardia, history of multiple ablation procedures in the past, last ablation performed by Dr. Grider on of last week, AICD replacement last week, CAD status post CABG 2, COPD who was brought to the emergency department by EMS due to defibrillator firing. He was discharged home only yesterday. He had an episode of syncope today, woke up with the defibrillator firing. He presented to the ED with recurrent defibrillator firing and chest pain. EKG in the ED confirmed ventricular tachycardia. Dr. Ac in ED discussed with Dr. Doan who happened to be in the ED. A magnet was placed over the AICD to deactivate and patient was given multiple IV pushes of metoprolol until V. tach was controlled. Critical care medicine consulted for admission. I advised 150 mg amiodarone bolus followed by amiodarone infusion per protocol and holding p.o. amiodarone. In addition to metoprolol patient also received and lidocaine IVP in the ED I evaluated the patient in the CVICU. He appears in moderate distress and nervous. I will continue amiodarone infusion for now. Coreg 12.5 mg now and 6.25 mg every 12 ordered. I have discussed with Dr. Grider who will see the patient soon. The [employer] rep did interrogate the AICD SUBJ 06/04/18: Seen by Dr. Grider EP yesterday. He added mexiletine 200 mg p.o. 3 times daily. Coreg was started earlier. Had been weaned off the amiodarone infusion yesterday. Overnight patient developed ventricular tachycardia again 4 and was shocked several times. Received IV push lidocaine 2 and currently is on lidocaine infusion. Last episode of ventricular tachycardia around [address] Grider 06/05/18: Underwent attempted V. tach ablation yesterday by Dr. Grider. s/p Implantation and explantation of Impella 2.5 heart assist device to assist during ventricular tachycardia ablation by Dr. Perez. I am unable to review a procedure note as it is not available in the system. Overnight patient did not have any runs of V. tach, only few PVCs. Currently on Coreg, mexiletine, amiodarone 8-31F/u; VT in no acute distress. no chest pain or sob. TRANSFERRED TO OUR SERVICE 9-1 f/u; VT in no acute distress. no chest pain or sob. but feels weak. had a BM . d/w the RN and no other acute issues over night. 9-2 Patient is seen sitting up eating breakfast. is present in room. He tells me he feels significantly better today. He has been able to walk around the floor without any chest pain or shortness of breath. No syncope or dizziness. He is very happy that he is not gotten shocked. Has not had any nausea vomiting or diarrhea. He is tolerating his well. Normal urination and bowel movements. He very much would like to go home rather than going to rehab. 9-3 57-year-old male admitted with ventricular tachycardia, now status post ablation procedure. He developed chest pain late yesterday afternoon and was worked up for possible DVT versus cardiac cause versus GI causes versus anxiety. Today he states he feels better, no recurrence of pain, but he is not feeling 100% yet. 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 Acute pain exception. This patient has normal, predicted, physiological, and time limited response to an adverse mechanical stimulus associated with surgery, trauma, or acute illness as described in my notes. There is a lack of alternative treatment options other than to include the prescribed narcotic treatment for this condition. Check the patient's EFORCSE prescriptions written - Time Spent with Patient Total time spent providing and/or coordinating discharge services: Greater than 30 minutes - Quality: VTE Deep Vein Thrombosis/Pulmonary Embolism Present on Admission: No Exam Vital signs: Vital Signs 06/09/18 16:00 06/09/18 19:00 06/09/18 19:50 Temperature 98.1 F Pulse Rate 59 L 63 Respiratory Rate 17 Blood Pressure 113/63 Pulse Oximetry 98 100 06/09/18 20:00 06/09/18 20:40 06/09/18 23:54 Temperature 97.6 F Pulse Rate 62 80 60 Respiratory Rate 21 20 Blood Pressure 129/77 Pulse Oximetry 97 06/10/18 00:00 06/10/18 04:00 06/10/18 04:23 Temperature 97.4 F L 97.7 F Pulse Rate 66 64 60 Respiratory Rate 20 21 Blood Pressure 114/67 112/67 Pulse Oximetry 97 96 06/10/18 08:00 Temperature 97.1 F L Pulse Rate 60 Respiratory Rate 20 Blood Pressure 141/59 H Pulse Oximetry 95 Intake & Output 06/09/18 06/10/18 06/10/18 18:59 06:59 18:59 Intake Total 720 / 720 720 / 720 Output Total 1200 / 1200 900 / 900 350 / 350 Balance -480 / -480 -180 / -180 -350 / -350 Weight 113 kg Intake: Oral 720 / 720 720 / 720 Output: Urine 1200 / 1200 900 / 900 350 / 350 Other: Date of Last Bowel Movement 06/09/18 06/09/18 # Bowel Movements 1 Narrative: GENERAL: NAD, AAOx3 SKIN: Warm and dry. HEAD: Atraumatic. Normocephalic. NECK: Trachea midline. No JVD. CARDIOVASCULAR: Regular rate and rhythm. RESPIRATORY: No accessory muscle use. Clear to auscultation. Breath sounds equal bilaterally. GASTROINTESTINAL: Abdomen soft, non-tender, nondistended. MUSCULOSKELETAL: Extremities without clubbing, cyanosis, or edema. No obvious deformities. Extremities: Right groin with no hematoma, distal pulses palpable. Left groin with ecchymosis, distal pulses palpable NEUROLOGICAL: Awake and alert. No obvious cranial nerve deficits. Motor grossly within normal limits. Five out of 5 muscle strength in the arms and legs. Normal speech. PSYCHIATRIC: Appropriate mood and affect; insight and judgment normal. Results Procedures completed during hospitalization: 06/04/2018 PROCEDURE: Insertion of short-term external heart assist system into heart, intraoperative, percutaneous approach, assistance with cardiac output using Impella pump continuous (CPT 64958, [id number], [id number]), explantation of Impella 2.5 heart assist device, Perclose bilateral groins. PREPROCEDURE DIAGNOSIS: Recurrent ventricular tachycardia for VT ablation, chronic systolic heart failure with an ejection fraction of 25-30%. POSTPROCEDURE DIAGNOSIS: Explantation of Impella device after VT ablation by Dr. Grider. BLOOD LOSS: 50 mL. INDICATIONS FOR PROCEDURE: Rob Rodriguez is a pleasant 57-year-old male who presented to [facility] due to recurrent VT. He has had previous ablations and continues to have ventricular tachycardia. He was evaluated by Dr. Grider for further considerations of VT ablation. Due to the difficulty with his previous ablation with VT, I was asked by Dr. Grider for implantation of an Impella device. Risks, benefits, and alternatives were explained to him and his and they were in agreement to proceed. DESCRIPTION OF PROCEDURE: The patient was brought to the lab and prepped in sterile fashion. Anesthesia sedated the patient. Left femoral artery was accessed with a micropuncture needle and a modified Seldinger technique. During the angiogram, this was infiltrated in the back wall of the vessel, but no dissection flap was noted. The vessel was large enough for Impella device and wire was intravascular and so this was exchanged out for a 6-Northern Irish sheath. Two Percloses were used to pre-close the vessel. Sheath was exchanged out for the Impella sheath. A JR4 was advanced over a J-wire to the ascending aorta and across the aortic valve. Heparin was given as an anticoagulant. Impella wire was advanced into the left ventricle and the JR4 was removed. ACT was 250 and additional heparin was given and the Impella 2.5 was advanced into the left ventricle. The Impella was ramped up to a cardiac output of 2.5 liters per minute. Please see Dr. Grider's note for the VT ablation. After VT ablation was done, Impella was weaned off and the patient was hemodynamically stable. The Impella was removed. Left femoral sheath was removed with 2 Percloses used to close the vessel. I was asked by Dr. Grider to Perclose his right femoral artery sheath, which was 8-Northern Irish. A Perclose was placed to close the right femoral artery. The patient left the recyclable products sorter cardiovascularly stable. IMPRESSION: 1. Ventricular tachycardia with recurrent VT, status post attempted VT ablation per Dr. Grider. 2. Implantation and explantation of Impella 2.5 heart assist device to assist during ventricular tachycardia. RECOMMENDATIONS: 1. Mr. Rodriguez underwent VT ablation per Dr. Grider and further recommendations will be made by him from an EP standpoint. 2. He will be taken back to the CVICU for further observation. Thank you for allowing me to see Rob Rodriguez. If there are any questions, please do not hesitate to call. Red Perez, DO 06/04/2018 PROCEDURE PERFORMED: Electrophysiology study with CS cannulation, intracardiac echo, 3-D mapping, radiofrequency ablation of ventricular tachycardia, and Impella insertion by Dr. Perez. Multiple cardioversion that was a very difficult and complex case. INDICATION: Mr. Rodriguez is a 57-year-old gentleman, congestive heart failure, cardiomyopathy, previous biventricular pacer defibrillator implanted, previous ventricular tachycardia ablation, admitted to the hospital due to a ventricular tachycardia storm. He was on lidocaine, mexiletine and amiodarone. Despite that, the gentleman has multiple shocks. Decision for ablation was taken. Because the patient has sustained VT, I decided to use Impella during the procedure. DESCRIPTION OF PROCEDURE: After informed consent was obtained, the patient was brought to the EP lab where he was prepped and draped in the usual sterile fashion. Conscious sedation was initiated and maintained throughout the procedure by the anesthesiologist. Once sedation was verified, the area of the right inguinal area was anesthetized with 2% Xylocaine. Using modified Seldinger technique, the right femoral vein was cannulated on 3 occasions. Two guidewires were advanced over the wire, two 6 and a 10-Northern Irish Hemaquet were advanced and the right femoral artery was cannulated on one occasion; 1 guidewire was advanced over the wire, 8-Northern Irish Hemaquet was advanced. At that point, Dr. Perez intervened in the left inguinal area. He did cannulate the left femoral vein. Perclose was placed as well as an Impella that was going with a cardiac index of 2.5. At that point, after the Impella placed, I decided to proceed with ablation. Through a 6-Northern Irish Hemaquet, two 5-Northern Irish Arsh curved quadripolar electrophysiology catheters were advanced and placed on the His, as well as coronary sinus. Through the 10-Northern Irish Hemaquet, a [employer] Ac[employer] intracardiac echo catheter was placed at the right atrium. Multiple views obtained. There is no pericardial effusion and pulmonary vein were seen. Atrial septum visualized. An intracardiac echo catheter was placed at the right ventricular septum for good visualization of the left ventricle. There was severe anterior dyskinesia. Through the 8-Northern Irish, the patient already received heparin. The goal is to keep an ACT around 300 msec. Through the 8-Northern Irish Hemaquet, a Cordis Hernandez DF 3.5 mm irrigated tip bidirectional catheter was advanced. Using [email or web address] endocardial solution mapping system, a 3-dimensional configuration of the left ventricle was obtained. A fractionated signal activation was coming from the lateral portion of the left ventricle. I did ablate. Subsequently, ventricular tachycardia was induced. The patient was on pumping with the Impella. Then, the patient has a different tachyarrhythmia. At this time, the cycle length was around 430 msec. He was ablated. At the end of the tachyarrhythmia coming from the septal area. After multiple mapping, I did realize most likely this arrhythmia is coming from the epicardial area. Ablation was performed, but the tachyarrhythmia was pace terminated at the end of the day. At this point, I decided to discontinue the ablation. Two previous tachyarrhythmia were ablated. I will continue medical management. All catheters were removed. Intracardiac echo showed no pericardial effusion. Impella was removed by Dr. Perez and a Perclose was placed. That was a very complex case. No incident to report. The patient tolerated the procedure. Blood loss, maybe 100 mL. The biventricular pacer defibrillator was reprogrammed, the defibrillator portion on, and the device was a preprogram LV pacing. ELECTROCARDIOGRAM: 1. At baseline, the patient was in sinus rhythm. Postprocedure, the patient in sinus rhythm. 2. BASIC INTERVAL: Base cycle length was around 1100 msec. 3. Tachyarrhythmia. Ventricular tachycardia was mapped and ablated. At least 2 different arrhythmia was ablated. Ablation was successful. I was unable to ablate the epicardial tachyarrhythmia. RECOMMENDATION: Successful electrophysiology study, mapping atrophic examination of ventricular tachyarrhythmia. Hemodynamic maintenance with Impella, if the gentleman has another episode of tachyarrhythmia, then I will recommend sending to another tertiary center for epicardial ablation. For now, he is going to be transferred to the telemetry unit. We will observe. If stable and no further tachyarrhythmia in the next 24 hours, the patient will be discharged home. Neli Grider MD Completed studies during hospitalization: Laboratory Results WBC 9.9 th/mm3 (4.0-11.0) 06/07/18 05:05 RBC 3.45 mil/mm3 (4.50-5.90) L 06/07/18 05:05 Hgb 10.3 gm/dL (13.0-17.0) L 06/07/18 05:05 Hct 30.4 % (39.0-51.0) L 06/07/18 05:05 MCV 88.1 fL (80.0-100.0) 06/07/18 05:05 MCH 29.9 pg (27.0-34.0) 06/07/18 05:05 MCHC 33.9 % (32.0-36.0) 06/07/18 05:05 RDW 14.7 % (11.6-17.2) 06/07/18 05:05 Plt Count 163 th/mm3 (150-450) 06/07/18 05:05 MPV 8.7 fL (7.0-11.0) 06/07/18 05:05 Neut % (Auto) 80.2 % (16.0-70.0) H 06/07/18 05:05 Lymph % (Auto) 8.7 % (9.0-44.0) L 06/07/18 05:05 Obion % (Auto) 10.0 % (0.0-8.0) H 06/07/18 05:05 Eos % (Auto) 0.7 % (0.0-4.0) 06/07/18 05:05 Baso % (Auto) 0.4 % (0.0-2.0) 06/07/18 05:05 Neut # (Auto) 7.9 th/mm3 (1.8-7.7) H 06/07/18 05:05 Lymph # (Auto) 0.9 th/mm3 (1.0-4.8) L 06/07/18 05:05 Obion # (Auto) 1.0 th/mm3 (0.0-0.9) H 06/07/18 05:05 Eos # (Auto) 0.1 th/mm3 (0.0-0.4) 06/07/18 05:05 Baso # (Auto) 0.0 th/mm3 (0.0-0.2) 06/07/18 05:05 WBC Differential . 06/07/18 05:05 Differential Comment Auto diff final 06/07/18 05:05 PT 10.9 sec (9.8-11.6) 06/04/18 04:15 INR 1.1 Ratio 06/04/18 04:15 APTT 25.4 sec (24.3-30.1) 06/03/18 12:45 D-Dimer Quant (PE/DVT) 1.22 mg/L FEU (0.00-0.50) H 06/08/18 16:08 Sodium 141 meq/L (136-145) 06/09/18 04:34 Potassium 4.1 meq/L (3.5-5.1) 06/09/18 04:34 Chloride 100 meq/L (98-107) 06/09/18 04:34 Carbon Dioxide 33.7 meq/L (21.0-32.0) H 06/09/18 04:34 Anion Gap 7 meq/L (5-15) 06/09/18 04:34 BUN 33 mg/dL (7-18) H 06/09/18 04:34 Creatinine 1.60 mg/dL (0.60-1.30) H 06/09/18 04:34 Estimated GFR 45 mL/min (>89) L 06/09/18 04:34 Random Glucose 82 mg/dL (74-106) 06/09/18 04:34 Calcium 8.2 mg/dL (8.5-10.1) L 06/09/18 04:34 Magnesium 2.7 mg/dL (1.5-2.5) H 06/06/18 03:50 Total Bilirubin 0.4 mg/dL (0.2-1.0) 06/06/18 03:50 AST 13 U/L (15-37) L 06/06/18 03:50 ALT 14 U/L (12-78) 06/06/18 03:50 Alkaline Phosphatase 66 U/L (45-117) 06/06/18 03:50 Troponin I 0.30 ng/mL (0.02-0.05) H 06/09/18 04:34 Total Protein 5.9 g/dL (6.4-8.2) L 06/06/18 03:50 Albumin 2.5 g/dL (3.4-5.0) L 06/06/18 03:50 Impressions Chest X-Ray 06/03/18 12:54 CONCLUSION: Cardiomegaly and findings of vascular congestion without overt failure. The findings are improved when compared with the prior exam. Chest CTA 06/09/18 00:00 CONCLUSION: 1. No PE is identified. 2. There is suspected round atelectasis in the right lower lobe and atelectasis versus scar at the left lung base. 3. Complex small pleural effusion with likely pleural thickening in the inferior right hemithorax. There is calcified pleural thickening bilaterally. All of these findings may be related to prior asbestos exposure. - Impressions ITS Impressions Chest X-Ray 06/03/18 12:54 CONCLUSION: Cardiomegaly and findings of vascular congestion without overt failure. The findings are improved when compared with the prior exam. Chest CTA 06/09/18 00:00 CONCLUSION: 1. No PE is identified. 2. There is suspected round atelectasis in the right lower lobe and atelectasis versus scar at the left lung base. 3. Complex small pleural effusion with likely pleural thickening in the inferior right hemithorax. There is calcified pleural thickening bilaterally. All of these findings may be related to prior asbestos exposure. Discharge Plan - Discharge Disposition Patient Disposition: /Home Health Service - Discharge Condition Condition: Stable - Discharge Order Discharge Orders: Discharge Order (Routine); Ordered 06/10/18 Ordered By: Anil Kenyon - Discharge Details Anticipated Discharge Date: 06/10/18 Discharge Comment: dc to home with [facility] - Physicians Team Primary Care Provider: UNKNOWN, Attending Provider: Anil Kenyon Other Providers: Neli Grider MD ; [facility] ; [employer]
[2018-06-10 13:37] VITALS: BP 128/71; TEMP 97.5; O2SAT 100
[2018-06-10 14:10] VITALS: PULSE 60
== END 2018-06-10 14:04 ==
LOC: NEPC 12:12 → NEDA 13:14 → HCVI 13:40 → N04 06-07 18:53
PROVIDERS: ADMIT Hospitalist; ATTEND Hospitalist

== ENCOUNTER 2018-12-01 10:21 | Inpatient (IN) ==
--- NOTE | 2018-12-01 10:51 | ED ---
HPI General Chief Complaint: Arrhythmia / Palpitations Stated Complaint: Medical Time Seen by Provider: 12/01/18 10:38 History of Present Illness HPI narrative: This patient presents emergently by paramedics. His defibrillator fired this morning. At that time he was lightheaded. He was complaining of some chest pain in the center sternum region. Patient is in a long-term and has extensive cardiac history. He is on multiple antiarrhythmics. Just before arrival to the emergency department paramedics report he was in a wide-complex ventricular tachycardia and his defibrillator fired a second time. He arrives very anxious and shaky. He reports his last cardiac evaluation was June of last year. He has had bypass grafting. He reports history of ventricular tachycardia. Duration one day. Symptoms are severe. No alleviating factors. Symptoms exacerbated by his advanced chronic disease. He also has COPD. He is wheezy and a bit dyspneic. No productive cough or fever Related Data Home Medications Medication Instructions Recorded Confirmed fluticasone-vilanterol [Breo 1 inh INHALATION DAILY 05/24/18 12/01/18 Ellipta] ipratropium bromide 0.5 mg INHALATION Q8H PRN 05/24/18 12/01/18 mexiletine 200 mg PO Q8H 11/12/18 12/01/18 sennosides-docusate sodium [Senna 1 tab PO DAILY 11/12/18 12/01/18 Plus] atorvastatin [Lipitor] 40 mg PO HS 12/01/18 12/01/18 carvedilol [Coreg] 25 mg PO BID 12/01/18 12/01/18 hydrocodone-acetaminophen 1 tab PO Q6H PRN 12/01/18 12/01/18 ranitidine HCl [Zantac 75] 75 mg PO BID 12/01/18 12/01/18 Previous Rx's Medication Instructions Recorded albuterol sulfate [ProAir HFA] 1 puff INHALATION Q6H PRN #1 inh 06/10/18 allopurinol 300 mg PO DAILY #30 tab 06/10/18 amiodarone 200 mg PO BID #60 tab 06/10/18 aspirin 81 mg PO DAILY #30 tab 06/10/18 bumetanide 2 mg PO DAILY #30 tab 06/10/18 clopidogrel [Plavix] 75 mg PO DAILY #30 tab 06/10/18 ipratropium-albuterol 1 amp NEB Q2HR NEB PRN #180 amp 06/10/18 nitroglycerin [Nitrostat] 0.4 mg SUBLINGUAL Q5-15M PRN #100 06/10/18 tab potassium chloride 20 meq PO DAILY #30 tab 06/10/18 tamsulosin 0.4 mg PO BID #30 tab 06/10/18 alprazolam [Xanax] 0.5 mg PO Q6H PRN #12 tab 11/19/18 pregabalin [Lyrica] 50 mg PO TID #9 cap 11/19/18 Allergies Allergy/AdvReac Type Severity Reaction Status Date / Time oxycodone Allergy Severe RASH Verified 11/12/18 06:24 Sulfa (Sulfonamide Allergy Severe HIVES Verified 11/12/18 06:24 Antibiotics) lorazepam AdvReac Severe Confusion Verified 11/12/18 06:24 Review of Systems ROS: all other systems reviewed are negative [facility] Medical History Medical History CAD (coronary artery disease) (Chronic) COPD (chronic obstructive pulmonary disease) (Chronic) COPD (chronic obstructive pulmonary disease) (Chronic) Chronic renal failure (Chronic) Gout (Chronic) High cholesterol (Chronic) Hypertension (Chronic) Pacemaker (Chronic) Systolic CHF (Chronic) Carpal tunnel syndrome (Resolved) Ventricular tachycardia (Inactive) Surgical History Surgical History History of appendectomy (Acute) History of tonsillectomy (Acute) AICD (automatic cardioverter/defibrillator) present (Chronic) AICD (automatic cardioverter/defibrillator) present (Chronic) History of angioplasty (Chronic) History of carpal tunnel surgery (Chronic) History of inguinal hernia repair (Chronic) History of knee surgery (Chronic) History of shoulder surgery (Chronic) S/P CABG x 2 (Chronic) S/P CABG x 2 (Chronic) Stented coronary artery (Chronic) Family History Family History Father Heart disease Mother Heart disease Social History Social History Substance History: No History of Abuse Second Hand Smoke Exposure: No Smoking Status: Former smoker Tobacco Type: Cigarettes How Often Do You Have a Drink Containing Alcohol: Monthly or less Recent Travel in [facility] within the Last 8 Weeks: No Recent Out of Country Travel within the Last 8 Weeks: No Exam Narrative Exam Narrative: GENERAL: Very shaky and jittery. well-developed patient with some shortness of breath and anxiety. SKIN: Focused skin assessment reveals no rash and nodules. Skin is Warm and dry. HEAD: Atraumatic. Normocephalic. EYES: Pupils equal and round. No scleral icterus. No injection or drainage. ENT: No nasal bleeding or discharge. Mucous membranes pink and moist. NECK: Trachea midline. No JVD. CARDIOVASCULAR: Regular rate and rhythm. No murmur appreciated. RESPIRATORY: No accessory muscle use. Some expiratory wheezing. Breath sounds equal bilaterally. GASTROINTESTINAL: Abdomen soft, non-tender, nondistended. Hepatic and splenic margins not palpable. MUSCULOSKELETAL: No obvious deformities. No clubbing. No cyanosis. No edema. NEUROLOGICAL: Awake and alert. No obvious cranial nerve deficits. Motor grossly within normal limits. Normal speech. PSYCHIATRIC: Anxious mood and affect; insight and judgment normal. Course Initial Documented Vital Signs Temperature 98.3 F 12/01/18 10:30 Pulse Rate 81 12/01/18 10:30 Respiratory Rate 18 12/01/18 10:30 Blood Pressure 136/85 12/01/18 10:30 Pulse Oximetry 86 L 12/01/18 10:30 Last Documented Vital Signs Temperature 98.3 F 12/01/18 10:30 Pulse Rate 67 12/01/18 10:42 Respiratory Rate 18 12/01/18 10:42 Blood Pressure 136/85 12/01/18 10:30 Pulse Oximetry 96 12/01/18 10:42 Critical Care Time Critical Care Time: Yes Total Critical Care Time: 35 Attestation: Aggregate critical care time was 35 minutes. Time to perform other separately billable procedures was not included in the critical care time. My time did not include minutes spent treating any other patients simultaneously or on activities that did not directly contribute to the patient's treatment. The services I provided to this patient were to treat and/or prevent clinically significant deterioration that could result in: Cardiopulmonary arrest, lethal cardiac arrhythmia, cardiogenic shock I provided critical care services requiring my management, as noted below: Chart data review, documentation time, medication orders and management, vital sign assessments/reviewing monitor data, ordering and reviewing lab tests, ordering and interpreting/reviewing x-rays and diagnostic studies, care of the patient and discussion of the patient with the admitting physicians. Medical Decision Making MDM Narrative Medical decision making narrative: 58-year-old male who is been defibrillated by his device 2 times this morning. He also complains of chest pain. Paramedics reported seeing wide-complex ventricular tachycardia although I do not really have any confirmation of that. I placed a call to his contract assistant Dr. Hernan Brice to discuss. I placed a call to [facility] to have the device interrogated. I have sent lab studies. His EKG now shows a regular wide-complex rhythm at 70 which is paced. Chest x-ray ordered. I am holding off on nebulizer treatments because I do not want to give him cardiac stimulant like albuterol given the current situation. Saturations are 98% on a nasal cannula at 4 L. I reviewed the case in detail with contract assistant coverage who is Dr. Doan. He recommends an oral dose of Lopressor now followed by CIC monitoring and electrophysiology consultation with Dr. Neville. I reviewed the findings with him regarding Medtronic evaluation. The patient's device did fire due to a wide-complex ventricular tachycardia. Labs are reviewed. He is chronically elevated CO2. His creatinine is a bit high as well. Cardiac enzymes are normal. At this point the patient is now resting comfortably with a paced rhythm in the 70s. I [facility] a [facility]. Medical Screen Exam Complete: Yes Emergency Medical Condition: Yes Differential Diagnosis Differential Diagnosis: ACS, ventricular tachycardia, V. fib Medical Records Medical records reviewed: Yes I reviewed the patient's medical records. Lab Data Lab results reviewed: Yes I reviewed the patient's lab results. Lab results narrative: Cardiac enzymes are normal. Creatinine and CO2 are elevated. Result diagrams: 12/01/18 10:59 12/01/18 10:59 Lab Results 12/01/18 12/01/18 12/01/18 Range/Units 10:59 10:59 10:59 WBC 6.0 (4.0-11.0) th/mm3 RBC 4.51 (4.50-5.90) mil/mm3 Hgb 11.9 L (13.0-17.0) gm/dL Hct 37.5 L (39.0-51.0) % MCV 83.2 (80.0-100.0) fL MCH 26.5 L (27.0-34.0) pg MCHC 31.8 L (32.0-36.0) % RDW 16.7 (11.6-17.2) % Plt Count 245 D (150-450) th/mm3 MPV 8.7 (7.0-11.0) fL Neut % (Auto) 77.4 H (16.0-70.0) % Lymph % (Auto) 10.6 (9.0-44.0) % Throckmorton % (Auto) 9.4 H (0.0-8.0) % Eos % (Auto) 1.6 (0.0-4.0) % Baso % (Auto) 1.0 (0.0-2.0) % Neut # (Auto) 4.7 (1.8-7.7) th/mm3 Lymph # (Auto) 0.6 L (1.0-4.8) th/mm3 Throckmorton # (Auto) 0.6 (0.0-0.9) th/mm3 Eos # (Auto) 0.1 (0.0-0.4) th/mm3 Baso # (Auto) 0.1 (0.0-0.2) th/mm3 WBC Differential . Differential Comment Auto diff final PT 11.3 (9.8-11.6) sec INR 1.1 Ratio APTT 28.5 (23.4-31.7) sec Sodium 140 (136-145) meq/L Potassium 3.9 (3.5-5.1) meq/L Chloride 96 L (98-107) meq/L Carbon Dioxide 42.5 H (21.0-32.0) meq/L Anion Gap 2 L (5-15) meq/L BUN 28 H (7-18) mg/dL Creatinine 1.55 H (0.60-1.30) mg/dL Estimated GFR 46 L (>89) mL/min Random Glucose 116 H (74-106) mg/dL Calcium 8.6 (8.5-10.1) mg/dL Total Bilirubin 0.3 (0.2-1.0) mg/dL AST 20 (15-37) U/L ALT 36 (12-78) U/L Alkaline Phosphatase 101 (45-117) U/L Total Creatine Kinase 41 (39-308) U/L Troponin I Less than 0.02 L (0.02-0.05) ng/mL Total Protein 7.2 (6.4-8.2) g/dL Albumin 3.2 L (3.4-5.0) g/dL Imaging Data Attestation: I personally reviewed and interpreted this imaging study as follows : My impression: There is a patchy right base infiltrate unchanged from prior Radiologist's impression: Chest X-Ray 12/01/18 10:42 CONCLUSION: No significant interval change compared to the prior exam. The patchy infiltrate in the right lung base is essentially stable compared to the prior study. ECG Data EKG Prior to Arrival: No Attestation: I personally reviewed and interpreted this ECG as follows: Prior ECG tracings: not available for review Interpretation: EKG shows a rate of 71 which looks paced. QRS is very wide at 223 ms. [place] interval is 152 ms. On the EKG there is no ectopy. Discharge Plan Discharge Disposition Patient Disposition: ED Admit(ED Internal Use Only) Discharge Details Diagnosis: Ventricular tachycardia, sustained, Defibrillator discharge, Chest pain in adult Physicians Team ED Provider: Octavio Cast Rxs /Orders / Referrals /Forms Prescriptions: No Action ipratropium bromide 0.02 % Solution 0.5 mg INHALATION Q8H PRN (Reason: Shortness Of Breath) RF: 0 fluticasone-vilanterol [Breo Ellipta] 100-25 mcg/dose Blister With Device 1 inh INHALATION DAILY RF: 0 alprazolam [Xanax] 0.5 mg Tablet 0.5 mg PO Q6H PRN (Reason: Anxiety) Qty: 12 RF: 0 pregabalin [Lyrica] 50 mg Capsule 50 mg PO TID Qty: 9 RF: 0 atorvastatin [Lipitor] 40 mg Tablet 40 mg PO HS RF: 0 ranitidine HCl [Zantac 75] 75 mg Tablet 75 mg PO BID RF: 0 carvedilol [Coreg] 25 mg Tablet 25 mg PO BID RF: 0 hydrocodone-acetaminophen 10-325 mg tablet 1 tab PO Q6H PRN (Reason: Pain) RF: 0 ipratropium-albuterol 0.5 mg-3 mg(2.5 mg base)/3 mL Solution For Nebulization 1 amp NEB Q2HR NEB PRN (Reason: Wheezing) Qty: 180 RF: 0 aspirin 81 mg Tablet,Chewable 81 mg PO DAILY Qty: 30 RF: 0 bumetanide 2 mg Tablet 2 mg PO DAILY Qty: 30 RF: 0 amiodarone 200 mg Tablet 200 mg PO BID Qty: 60 RF: 0 clopidogrel [Plavix] 75 mg Tablet 75 mg PO DAILY Qty: 30 RF: 0 tamsulosin 0.4 mg Capsule,Extended Release 24hr 0.4 mg PO BID Qty: 30 RF: 0 nitroglycerin [Nitrostat] 0.4 mg Tablet, Sublingual 0.4 mg SUBLINGUAL Q5-15M PRN (Reason: Chest Pain) Qty: 100 RF: 0 allopurinol 300 mg Tablet 300 mg PO DAILY Qty: 30 RF: 0 albuterol sulfate [ProAir HFA] 90 mcg/actuation Hfa Aerosol Inhaler 1 puff INHALATION Q6H PRN (Reason: Shortness Of Breath) Qty: 1 RF: 0 potassium chloride 20 mEq Tablet Extended Release 20 meq PO DAILY Qty: 30 RF: 0 sennosides-docusate sodium [Senna Plus] 8.6-50 mg tablet 1 tab PO DAILY RF: 0 mexiletine 200 mg capsule 200 mg PO Q8H RF: 0 Discharge Interventions Interventions: Vital Signs Last Done: 12/01/18 10:42 Status ED Status: With Doctor
[2018-12-01] MEDS ORDERED: Metoprolol Tartrate 25 MG Tablet PO ONE (11:18)
[2018-12-01 11:22] LABS: Baso # (Auto) 0.1 th/mm3 (0.0-0.2); Eos # (Auto) 0.1 th/mm3 (0.0-0.4); Eos % (Auto) 1.6 % (0.0-4.0); Hematocrit 37.5 % (39.0-51.0); Hemoglobin 11.9 gm/dL (13.0-17.0); Lymph # (Auto) 0.6 th/mm3 (1.0-4.8); Lymph % (Auto) 10.6 % (9.0-44.0); Mean Corpuscular HGB Conc 31.8 % (32.0-36.0); Mean Corpuscular Hemoglobin 26.5 pg (27.0-34.0); Mean Corpuscular Volume 83.2 fL (80.0-100.0); Mean Platelet Volume 8.7 fL (7.0-11.0); Mono # (Auto) 0.6 th/mm3 (0.0-0.9); Mono % (Auto) 9.4 % (0.0-8.0); Neut # (Auto) 4.7 th/mm3 (1.8-7.7); Neut % (Auto) 77.4 % (16.0-70.0); Platelet Count 245 th/mm3 (150-450); Red Blood Count 4.51 mil/mm3 (4.50-5.90); Red Cell Distribution Width 16.7 % (11.6-17.2)
[2018-12-01 11:31] LABS: Activated Partial Thrombo Time 28.5 sec (23.4-31.7); INR 1.1 Ratio; Prothrombin Time 11.3 sec (9.8-11.6)
--- NOTE | 2018-12-01 11:37 | XR ---
EXAM DATE: 12/01/2018 11:34 AM EST AGE/SEX: 58 years / Male INDICATIONS: Short of breath. Patient complains of chest pain and leg weakness. CLINICAL DATA: This is the patient's initial encounter. Patient reports that signs and symptoms have been present for 1 day and indicates a pain score of 7/10. MEDICAL/SURGICAL HISTORY: . Hypertension. Cardiovascular disease. CABG. Pacemaker/ Defibrilla tor, Tonsillectomy. Angioplasty, stent placement, CABG x 4 in 2007, CABG x 2 in 2008 COMPARISON: [facility] [place] 1V SINGLE AP, 11/14/2018. . FINDINGS: There continues to be some patchy infiltrates in the right lung base which are essentially stable com pared to the prior examination. The left lung remains grossly clear and well-aerated. The heart size is enlarged but stable. There is a pacemaker overlying the left chest. There continues to be some johann vation of the right hemidiaphragm which is stable. There is mild blunting of the left costophrenic an gle. CONCLUSION: No significant interval change compared to the prior exam. The patchy infiltrate in the right lung ba se is essentially stable compared to the prior study. Electronically signed by: Klever Estrada MD Board Certified Radiologist 12/01/2018 11:36 AM EST
[2018-12-01 11:42] LABS: Alanine Aminotransferase 36 U/L (12-78); Albumin 3.2 g/dL (3.4-5.0); Anion Gap 2 meq/L (5-15); Aspartate Aminotransferase 20 U/L (15-37); Blood Urea Nitrogen 28 mg/dL (7-18); Calcium 8.6 mg/dL (8.5-10.1); Carbon Dioxide 42.5 meq/L (21.0-32.0); Chloride 96 meq/L (98-107); Glomerular Filtration Rate 46 mL/min (>89); Glucose,Random 116 mg/dL (74-106); Potassium 3.9 meq/L (3.5-5.1); Sodium 140 meq/L (136-145)
[2018-12-01 11:46] LABS: Alkaline Phosphatase 101 U/L (45-117); Total Protein 7.2 g/dL (6.4-8.2)
[2018-12-01 11:47] LABS: Creatine Kinase 41 U/L (39-308)
[2018-12-01] MEDS ORDERED: Acetaminophen 325 MG Tablet PO PRN (14:43)
[2018-12-01] MEDS ORDERED: Bisacodyl 10 MG Supp RECTAL PRN (14:43)
[2018-12-01] MEDS: Heparin - SQ 10,000 UNITS/ML Vial SQ SCH ×2 (15:23→22:20)
--- NOTE | 2018-12-01 15:38 | P.HPIM ---
History of Present Illness Primary Care Physician: Dax Montana MD Patient is a 58 year old male with extensive pmhx including hx of SC, hx of Vtach s/p medtronic AICD, CHF, CAD s/p CABG and COPD ( no home oxygen) who presents to ED from outpatient rehab for chest pain. PAtient reports day prior to presentation he had been ill and "not feeling well." No reports of recent illness such as diarrhea or vomiting but patient says he hadnt been feeling well and upon waking up today and working with therapist in rehab he first felt symptoms of chest pain left sided and concerning. [facility] and before he knew it "everyone was around me asking if i was alright." EMS was called and he was taken to his room where he felt the first shock from his device. Patient reports he was taken via EMS to hospital and during the ride felt nausea and when he came into the ED felt a second shock in the chest. No LOC reported. Cardiology was called by the ED and recommended EP for evaluation, continue his medications outpatient ( amio/mexilitine) and also lopressor. Patient was placed on monitor and medtronic was called to interrogate his device. Currently patient feeling ok without complaints of new/continued chest pain or SOB. Inpatient Certification Inpatient Certification: I certify that the inpatient services were ordered in accordance with Medicare regulations governing the order. This includes certification that hospital inpatient services are reasonable and necessary and in the case of services not specified as inpatient-only under 42 CFR 419.22(n), that they are appropriately provided as inpatient services in accordance to with the 2-midnight benchmark under 43 CFR 412.3(e) Estimated Total Length of Stay (Days): 3 Plans for Post Hospital Care: Home Review of Systems Review of Systems: all other systems reviewed are negative Cardiovascular: Reports chest pain (left sided chest pain s/p shock from device ), Denies diaphoresis, Denies syncope, Denies rapid heart rate, Denies edema, Reports lightheadedness and Reports palpitations Respiratory: Denies chest congestion, Denies cough, Denies pain on inspiration, Reports dyspnea and Denies wheezing PMF Medical History Medical History CAD (coronary artery disease) (Chronic) COPD (chronic obstructive pulmonary disease) (Chronic) COPD (chronic obstructive pulmonary disease) (Chronic) Chronic renal failure (Chronic) Gout (Chronic) High cholesterol (Chronic) Hypertension (Chronic) Pacemaker (Chronic) Systolic CHF (Chronic) Carpal tunnel syndrome (Resolved) Ventricular tachycardia (Inactive) Surgical History Surgical History History of appendectomy (Acute) History of tonsillectomy (Acute) AICD (automatic cardioverter/defibrillator) present (Chronic) AICD (automatic cardioverter/defibrillator) present (Chronic) History of angioplasty (Chronic) History of carpal tunnel surgery (Chronic) History of inguinal hernia repair (Chronic) History of knee surgery (Chronic) History of shoulder surgery (Chronic) S/P CABG x 2 (Chronic) S/P CABG x 2 (Chronic) Stented coronary artery (Chronic) Family History Family History Father Heart disease Mother Heart disease Social History Social History Substance History: No History of Abuse Second Hand Smoke Exposure: No Smoking Status: Former smoker Tobacco Type: Cigarettes How Often Do You Have a Drink Containing Alcohol: Monthly or less Recent Travel in [place] within the Last 8 Weeks: No Recent Out of Country Travel within the Last 8 Weeks: No Immunization History Tetanus Immunization: <5 Years Medications and Allergies Allergies Allergy/AdvReac Type Severity Reaction Status Date / Time oxycodone Allergy Severe RASH Verified 11/12/18 06:24 Sulfa (Sulfonamide Allergy Severe HIVES Verified 11/12/18 06:24 Antibiotics) lorazepam AdvReac Severe Confusion Verified 11/12/18 06:24 Home Medications Medication Instructions Recorded Confirmed Type fluticasone-vilanterol [Breo 1 inh INHALATION DAILY 05/24/18 12/01/18 History Ellipta] ipratropium bromide 0.5 mg INHALATION Q8H PRN 05/24/18 12/01/18 History mexiletine 200 mg PO Q8H 11/12/18 12/01/18 History sennosides-docusate sodium [Senna 1 tab PO DAILY 11/12/18 12/01/18 History Plus] atorvastatin [Lipitor] 40 mg PO HS 12/01/18 12/01/18 History carvedilol [Coreg] 25 mg PO BID 12/01/18 12/01/18 History hydrocodone-acetaminophen 1 tab PO Q6H PRN 12/01/18 12/01/18 History ranitidine HCl [Zantac 75] 75 mg PO BID 12/01/18 12/01/18 History Active Medications: Active Medications Acetaminophen (Tylenol) 650 mg PO Q4H PRN PRN Reason: Temp > 100.4 Hydrocodone Bitart/Acetaminophen ([place] 10/325) 1 tab PO Q6H PRN PRN Reason: Pain1-10 Al Hydroxide/Mg Hydroxide (Milk Of Magnesia Liq) 30 ml PO Q12H PRN PRN Reason: Mild Constipation Albuterol (Duoneb Neb (Prn)) 1 ampul NEB Q6HR NEB PRN PRN Reason: SHORTNESS OF BREATH Allopurinol (Zyloprim) 300 mg PO DAILY [facility] Alprazolam (Xanax) 0.5 mg PO Q6H PRN PRN Reason: Anxiety Amiodarone HCl (Cordarone) 200 mg PO BID [facility] Aspirin (Aspirin Chew) 81 mg PO DAILY [facility] Atorvastatin Calcium (Lipitor) 40 mg PO HS [facility] Bisacodyl (Dulcolax Supp) 10 mg RECTAL DAILY PRN PRN Reason: SEVERE CONSITIPATION Bumetanide (Bumex) 2 mg PO DAILY [facility] Carvedilol (Coreg) 25 mg PO BID [facility] Clopidogrel Bisulfate (Plavix) 75 mg PO DAILY [facility] Fluticasone/Vilanterol (Breo Ellipta 100/25 Mcg Inh) 1 puff INH DAILY [facility] Last Admin: 12/01/18 15:23 Dose: 1 puff Heparin Sodium (Porcine) (Heparin Inj) 5,000 units SQ Q8H [facility] Last Admin: 12/01/18 15:23 Dose: 5,000 units Lactulose (Lactulose Liq) 30 ml PO DAILY PRN PRN Reason: SEVERE CONSITIPATION Mexiletine HCl (Mexitil) 200 mg PO Q8H [facility] Last Admin: 12/01/18 15:23 Dose: 200 mg Non-Formulary Medication (Ranitidine Hcl [Zantac 75]) 75 mg PO BID [facility] Ondansetron HCl (Zofran Inj) 4 mg IV.PUSH Q6H PRN PRN Reason: NAUSEA OR VOMITING Pregabalin (Lyrica) 50 mg PO TID [facility] Senna/Docusate Sodium (Madelaine-Colace) 1 tab PO BID [facility] Sennosides (Senokot) 17.2 mg PO Q12H PRN PRN Reason: Moderate Constipation Sodium Chloride (Ns Flush) 2 ml IV.FLUSH BID [facility] Sodium Chloride (Ns Flush) 2 ml IV.FLUSH PRN PRN PRN Reason: FLUSH AFTER USING IV ACCESS Tamsulosin HCl (Flomax) 0.4 mg PO BID [facility] Physical Exam Vital signs: Vital Signs 12/01/18 10:30 12/01/18 10:42 12/01/18 15:19 Temperature 98.3 F Pulse Rate 81 67 60 Respiratory Rate 18 18 21 Blood Pressure 136/85 106/62 Pulse Oximetry 86 L 96 96 Intake & Output 11/30/18 12/01/18 12/01/18 18:59 06:59 18:59 Weight 111.584 kg Results Labs CBC & Chem 7: 12/01/18 10:59 12/01/18 10:59 Imaging Impressions Chest X-Ray 12/01/18 10:42 CONCLUSION: No significant interval change compared to the prior exam. The patchy infiltrate in the right lung base is essentially stable compared to the prior study. Caprini VTE Risk Assessment Caprini VTE Risk Assessment: Moderate/High Risk (score >= 2) Caprini Risk Assessment Model: Point Value = 1 Point Value = 2 Point Value = 3 Point Value = 5 Age 41-60 Minor surgery BMI > 25 kg/m2 Swollen legs Varicose veins or History of unexplained or recurrent spontaneous Oral contraceptives or hormone replacement Sepsis (< 1 month) Serious lung disease, including pneumonia (< 1 month) Abnormal pulmonary function Acute myocardial infarction Congestive heart failure (< 1 month) History of inflammatory bowel disease Medical patient at bed rest Age 61-74 Arthroscopic surgery Major open surgery (> 45 min) Laparoscopic surgery (> 45 min) Malignancy Confined to bed (> 72 hours) Immobilizing plaster cast Central venous access Age >= 75 History of VTE Family history of VTE Factor V Leiden Prothrombin [id number] Lupus anticoagulant Anticardiolipin antibodies Elevated serum homocysteine Heparin-induced thrombocytopenia Other congenital or acquired thrombophilia Stroke (< 1 month) Elective arthroplasty Hip, pelvis, or leg fracture Acute spinal cord injury (< 1 month) Prophylaxis Regimen: Total Risk Factor Score Risk Level Prophylaxis Regimen 0-1 Low Early ambulation 2 Moderate Order ONE of the following: *Sequential Compression Device (SCD) *Heparin 5000 units SQ BID 3-4 Higher Order ONE of the following medications: *Heparin 5000 units SQ TID *Enoxaparin/Lovenox 40 mg SQ daily (WT < 150 kg, CrCl > 30 mL/min) *Enoxaparin/Lovenox 30 mg SQ daily (WT < 150 kg, CrCl > 10-29 mL/min) *Enoxaparin/Lovenox 30 mg SQ BID (WT < 150 kg, CrCl > 30 mL/min) AND/OR *Sequential Compression Device (SCD) 5 or more Highest Order ONE of the following medications: *Heparin 5000 units SQ TID (Preferred with Epidurals) *Enoxaparin/Lovenox 40 mg SQ daily (WT < 150 kg, CrCl > 30 mL/min) *Enoxaparin/Lovenox 30 mg SQ daily (WT < 150 kg, CrCl > 10-29 mL/min) *Enoxaparin/Lovenox 30 mg SQ BID (WT < 150 kg, CrCl > 30 mL/min) AND *Sequential Compression Device (SCD) Assessment and Plan Plan Patient is a 58 year old male with extensive cardiac history including CAD s/p CABG, hx of SC, history of Vtach w/ medtronic AICD who presents to the hospital from outpatient rehab for new chest pain and SOB in setting of suspected vtach episode with AICD firing. Cardiology: V tach, hx SC, CAD s/p CABG, hld - Cardiology consulted and recommendations appreciated - EP to evaluate patient - Medtronic to interrogate device - keep K 4 and Mg > 2 - EKG reviewed. patient is paced rhythm - troponin neg x 1. trend Q6hr - EKG prn chest pain - continue mexiletine 200mg q8hrs, coreg 25mg BID, and amiodarone 200mg BID - continue bumex - HOLD plavis/ASA for now incase cardiology plans any intervention from EP viewpoint. Resume as per EP after discussion with team. - echo - PENDING - pain control Orthopedics: RIGHT carpel tunnel release - PT consult - Ortho f/u outpt Pulmonary: COPD ( no home O2) - currently stable without signs of exacerbation. monitor - keep 88-92% Nephrology: CKD - avoid nephrotoxic medications - appears to be near baseline 1.6-1.8 roughly Urology: BPH - tamsulosin .4mg code: fc dvt ppx: heparin sq diet: cardiac disp: med/surg unit. CIC patient. plan discussed with patient and at the bedside. all questions answered. EP to evaluate shortly
--- NOTE | 2018-12-01 17:02 | ECHRPT ---
Indication: Chest Pain CONCLUSIONS The left ventricular systolic function is moderately reduced with an estimated ejection fraction in the range of 40-45%. Mildly dilated left ventricle. Mild concentric left ventricular hypertrophy. Mild mitral valve regurgitation. There is mild tricuspid valve regurgitation. BP: / HR: Rhythm: MEASUREMENTS (Male / Female) Normal Values Technical Quality:Fair 2D ECHO LV Diastolic Diameter PLAX 6.7 cm 4.2 - 5.9 / 3.9 - 5.3 cm LV Systolic Diameter PLAX 4.1 cm IVS Diastolic Thickness 1.3 cm 0.6 - 1.0 / 0.6 - 0.9 cm LVPW Diastolic Thickness 1.3 cm 0.6 - 1.0 / 0.6 - 0.9 cm LV Relative Wall Thickness 0.4 RV Internal Dim ED PLAX 3.7 cm Aortic Root Diameter 3.3 cm LA Systolic Diameter LX 3.6 cm 3.0 - 4.0 / 2.7 - 3.8 cm FINDINGS LEFT VENTRICLE Mildly dilated left ventricle. Mild concentric left ventricular hypertrophy. The left ventricular systolic function is moderately reduced with an estimated ejection fraction in the range of 40-45%. There is abnormal septal motion consistent with a right ventricle pacemaker. RIGHT VENTRICLE Grossly normal A pacemaker wire is noted. LEFT ATRIUM The left atrial size is normal. RIGHT ATRIUM The right atrial size is normal. ATRIAL SEPTUM Normal atrial septal thickness. AORTA The aortic root and proximal ascending aorta are not well visualized. MITRAL VALVE Structurally normal mitral valve. No mitral valve stenosis. Mild mitral valve regurgitation. AORTIC VALVE Trileaflet aortic valve. Aortic valve sclerosis is present. No aortic valve regurgitation. No aortic valve stenosis. TRICUSPID VALVE Structurally normal tricuspid valve. No tricuspid valve stenosis. There is mild tricuspid valve regurgitation. PULMONARY VALVE The pulmonary valve is not well visualized. VESSELS The inferior vena cava is normal in size. PERICARDIUM No pericardial effusion. Red Perez DO (Electronically Signed) Final Date:01 December 2018 17:01
[2018-12-01] MEDS: Famotidine 20 MG Tablet PO SCH (22:14)
[2018-12-01] MEDS: ALPRAZolam 0.5 MG Tablet PO PRN (22:14)
[2018-12-01] MEDS: Carvedilol 12.5 MG Tablet PO SCH (22:15)
[2018-12-01] MEDS: Amiodarone 200 MG Tablet PO SCH (22:15)
[2018-12-01] MEDS: Senna/Docusate Sodium 8.6/50 MG Tablet PO SCH (22:15)
[2018-12-01] MEDS: Pregabalin 25 MG Capsule PO SCH (22:20)
[2018-12-02 04:52] LABS: Baso # (Auto) 0.1 th/mm3 (0.0-0.2); Baso % (Auto) 1.3 % (0.0-2.0); Eos # (Auto) 0.1 th/mm3 (0.0-0.4); Eos % (Auto) 1.7 % (0.0-4.0); Hematocrit 35.7 % (39.0-51.0); Hemoglobin 11.2 gm/dL (13.0-17.0); Lymph # (Auto) 0.7 th/mm3 (1.0-4.8); Lymph % (Auto) 13.8 % (9.0-44.0); Mean Corpuscular HGB Conc 31.3 % (32.0-36.0); Mean Corpuscular Volume 83.1 fL (80.0-100.0); Mean Platelet Volume 8.6 fL (7.0-11.0); Mono # (Auto) 0.4 th/mm3 (0.0-0.9); Mono % (Auto) 8.3 % (0.0-8.0); Neut # (Auto) 3.7 th/mm3 (1.8-7.7); Neut % (Auto) 74.9 % (16.0-70.0); Platelet Count 226 th/mm3 (150-450); Red Cell Distribution Width 16.5 % (11.6-17.2); White Blood Count 4.9 th/mm3 (4.0-11.0)
[2018-12-02 05:02] LABS: INR 1.1 Ratio; Prothrombin Time 10.9 sec (9.8-11.6)
[2018-12-02 05:13] LABS: Albumin 2.9 g/dL (3.4-5.0); Anion Gap 5 meq/L (5-15); Aspartate Aminotransferase 16 U/L (15-37); Blood Urea Nitrogen 25 mg/dL (7-18); Calcium 8.8 mg/dL (8.5-10.1); Carbon Dioxide 41.9 meq/L (21.0-32.0); Chloride 95 meq/L (98-107); Glomerular Filtration Rate 43 mL/min (>89); Glucose,Random 97 mg/dL (74-106); Potassium 4.1 meq/L (3.5-5.1); Sodium 142 meq/L (136-145)
[2018-12-02 05:14] LABS: Alanine Aminotransferase 30 U/L (12-78)
[2018-12-02 05:17] LABS: Alkaline Phosphatase 90 U/L (45-117); Total Protein 6.4 g/dL (6.4-8.2)
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
[2018-12-02] MEDS: Heparin - SQ 10,000 UNITS/ML Vial SQ SCH ×3 (08:23→22:54)
[2018-12-02] MEDS: Allopurinol 300 MG Tablet PO SCH (08:25)
[2018-12-02] MEDS: Senna/Docusate Sodium 8.6/50 MG Tablet PO SCH ×2 (08:26→20:27)
[2018-12-02] MEDS: Pregabalin 25 MG Capsule PO SCH ×3 (08:27→17:54)
[2018-12-02] MEDS: Carvedilol 12.5 MG Tablet PO SCH ×2 (08:27→20:27)
[2018-12-02] MEDS: Amiodarone 200 MG Tablet PO SCH ×2 (08:27→20:27)
[2018-12-02] MEDS: Famotidine 20 MG Tablet PO SCH ×2 (08:28→20:27)
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
[2018-12-02] MEDS: ALPRAZolam 0.5 MG Tablet PO PRN ×2 (14:25→20:28)
--- NOTE | 2018-12-02 20:36 | ECG ---
Date Performed: 12/01/2018 Time Performed: 11:14:19 PTAGE: 58 years EKG: ELECTRONIC ATRIAL PACEMAKER ELECTRONIC VENTRICULAR PACEMAKER ABNORMAL RHYTHM ECG PREVIOUS TRACING : 11/14/2018 08.19 Since the previous tracing, no significant change noted DOCTOR: Aislinn Gaspar Interpretating Date/Time 12/02/2018 20:34:47
[2018-12-03] MEDS: ALPRAZolam 0.5 MG Tablet PO PRN ×3 (02:47→22:40)
[2018-12-03 05:16] LABS: Baso # (Auto) 0.1 th/mm3 (0.0-0.2); Baso % (Auto) 1.3 % (0.0-2.0); Eos # (Auto) 0.1 th/mm3 (0.0-0.4); Eos % (Auto) 2.5 % (0.0-4.0); Hematocrit 36.3 % (39.0-51.0); Hemoglobin 11.5 gm/dL (13.0-17.0); Lymph # (Auto) 0.7 th/mm3 (1.0-4.8); Lymph % (Auto) 16.8 % (9.0-44.0); Mean Corpuscular HGB Conc 31.6 % (32.0-36.0); Mean Corpuscular Hemoglobin 26.1 pg (27.0-34.0); Mean Corpuscular Volume 82.6 fL (80.0-100.0); Mean Platelet Volume 8.5 fL (7.0-11.0); Mono # (Auto) 0.4 th/mm3 (0.0-0.9); Mono % (Auto) 10.5 % (0.0-8.0); Neut # (Auto) 2.8 th/mm3 (1.8-7.7); Neut % (Auto) 68.9 % (16.0-70.0); Platelet Count 223 th/mm3 (150-450); Red Cell Distribution Width 16.3 % (11.6-17.2); White Blood Count 4.1 th/mm3 (4.0-11.0)
[2018-12-03 05:44] LABS: Albumin 3.1 g/dL (3.4-5.0); Anion Gap 2 meq/L (5-15); Blood Urea Nitrogen 26 mg/dL (7-18); Calcium 8.6 mg/dL (8.5-10.1); Carbon Dioxide 43.3 meq/L (21.0-32.0); Chloride 96 meq/L (98-107); Glomerular Filtration Rate 46 mL/min (>89); Glucose,Random 86 mg/dL (74-106); Potassium 3.8 meq/L (3.5-5.1); Sodium 141 meq/L (136-145)
[2018-12-03 05:46] LABS: Alanine Aminotransferase 34 U/L (12-78); Aspartate Aminotransferase 18 U/L (15-37)
[2018-12-03 05:47] LABS: Alkaline Phosphatase 92 U/L (45-117); Total Protein 6.8 g/dL (6.4-8.2)
[2018-12-03] MEDS: Heparin - SQ 10,000 UNITS/ML Vial SQ SCH ×3 (06:10→21:48)
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
[2018-12-03] MEDS ORDERED: metOLazone 5 MG Tablet PO ONE (08:02)
[2018-12-03] MEDS: Senna/Docusate Sodium 8.6/50 MG Tablet PO SCH ×2 (08:09→21:47)
[2018-12-03] MEDS: Pregabalin 25 MG Capsule PO SCH ×3 (08:10→17:06)
[2018-12-03] MEDS: Famotidine 20 MG Tablet PO SCH ×2 (08:10→21:48)
[2018-12-03] MEDS: Carvedilol 12.5 MG Tablet PO SCH ×2 (08:10→21:48)
[2018-12-03] MEDS: Allopurinol 300 MG Tablet PO SCH (08:12)
[2018-12-03] MEDS: Amiodarone 200 MG Tablet PO SCH ×2 (08:12→21:47)
--- NOTE | 2018-12-03 10:10 | P.PNIM ---
Subjective Interval history: Patient is not complaining of any symptoms today. However yesterday he did have a run of ventricular tachycardia without defibrillator triggering. Patient cannot recall specific symptoms at that time. Heart catheterization is planned for today. Physical Exam Vital signs: Vital Signs 12/02/18 10:44 12/02/18 10:55 12/02/18 11:42 Temperature 97.9 F Pulse Rate 60 65 Respiratory Rate 20 22 Blood Pressure 115/63 Pulse Oximetry 92 L 12/02/18 11:56 12/02/18 13:00 12/02/18 14:00 Temperature Pulse Rate 69 60 60 Respiratory Rate Blood Pressure Pulse Oximetry 12/02/18 15:00 12/02/18 16:00 12/02/18 17:00 Temperature 97.6 F Pulse Rate 60 75 58 L Respiratory Rate 20 Blood Pressure 120/67 Pulse Oximetry 93 L 12/02/18 18:00 12/02/18 19:00 12/02/18 20:00 Temperature 97.5 F L Pulse Rate 85 82 82 Respiratory Rate 20 Blood Pressure 99/57 L Pulse Oximetry 94 L 12/03/18 00:00 12/03/18 01:00 12/03/18 02:00 Temperature 97.5 F L Pulse Rate 58 L 64 60 Respiratory Rate 20 Blood Pressure 105/65 Pulse Oximetry 94 L 12/03/18 03:00 12/03/18 04:00 12/03/18 05:00 Temperature 97.8 F Pulse Rate 60 60 58 L Respiratory Rate 20 Blood Pressure 110/55 L Pulse Oximetry 95 12/03/18 06:00 Temperature Pulse Rate 60 Respiratory Rate Blood Pressure Pulse Oximetry Intake & Output 12/02/18 12/03/18 12/03/18 18:59 06:59 18:59 Intake Total 1200 / 1200 240 / 240 Output Total 1200 / 1200 1200 / 1200 Balance 0 / 0 -960 / -960 Weight 111 kg 110 kg Intake: Oral 1200 / 1200 240 / 240 Output: Urine 1200 / 1200 1200 / 1200 Other: Date of Last Bowel Movement 12/01/18 Narrative: GENERAL: NAD, A&Ox3 HEAD: Normocephalic. NECK: Supple, trachea midline. No lymphadenopathy. EYES: No scleral icterus. No injection or drainage. CARDIOVASCULAR: Regular rate and rhythm without murmurs, gallops, or rubs. RESPIRATORY: Breath sounds equal bilaterally. No accessory muscle use. Crackles bilaterally at bases GASTROINTESTINAL: Abdomen soft, non-tender, nondistended. MUSCULOSKELETAL: No cyanosis, mild edema at bilateral lower extremities SKIN: Warm and dry. NEURO: No focal neurological deficits. Results Labs CBC & Chem 7: 12/03/18 04:46 12/03/18 04:46 Assessment and Plan Plan 58 year old male with extensive cardiac history including CAD s/p CABG, hx of [place] , history of Vtach w/ [employer] AICD who presents to the hospital from outpatient rehab for new chest pain and SOB in setting of suspected vtach episode with AICD firing. Recurrent ventricular tachycardia now documented. Heart catheterization planned. Monitor renal function status post heart cath. Diuretics for now, consider light IV hydration in addition to continue diuresis, if renal function worsens post procedure. Recurrent ventricular tachycardia AICD Firing x3 Myocardial infarction history Coronary artery disease History of CABG Cardiology following Monitor on telemetry Continue Bumex Continue Coreg Continue amiodarone Continue Mexiletine Heart cath planned for 12/03/2018 Hyperlipidemia Continue present treatment Follow as an outpatient COPD No exacerbation Continue oxygen as needed Continue baseline treatments Chronic kidney disease Monitor creatinine Avoid nephrotoxins BPH Continue tamsulosin Recent RIGHT carpel tunnel release Continue PT DVT prophylaxis Heparin
[2018-12-03] MEDS ORDERED: fentaNYL Citrate Inj 100 MCG/2 ML Ampul ONE (12:44)
[2018-12-03] MEDS ORDERED: Iohexol 350 MG/ML 50 ML Vial (for Cath Lab) IVCONTRAST ONE (13:00)
[2018-12-03] MEDS ORDERED: Heparin/NS PF Inj 1,000 ML ONE (13:05)
--- NOTE | 2018-12-03 13:22 | P.PCN ---
Date of procedure: 12/03/18 Pre-op diagnosis: ventricular arrhythmia Procedure: vacuum furnace operator: Anil Doan MD Procedure performed: 1. Fluoroscopy with interpretation 2. Coronary angiography 3. Coronary artery bypass graft angiography Methods: Risks, benefits, and alternatives were discussed with the patient. Patient understood and consented to the procedure. Patient was brought into the cardiac catheterization lab placed in the catheterization table. Right groin was prepped and draped in a sterile fashion. Right groin was anesthetized with 1% lidocaine.The right common femoral artery was cannulated under fluoroscopic guidance and a 5 [place] 11 cm sheath was placed without difficulty. Coronary angiography: Left coronary circulation selectively engaged with a 5 [place] JL 4.0 catheter and right coronary circulations selectively engaged with a 5 [place] JR4 catheter. 1. Left main coronary has minor luminal irregularities 2. The left anterior descending coronary artery has moderate ostial disease of 60% and is occluded in the mid segment. There is a large septal burlesque dancer. There is a moderate size diagonal branch with 50% stenosis. 3. Left circumflex originates as 70% stenosis in the proximal to mid segment gives rise to small first obtuse marginal branch which has 90% diffuse stenosis. The mid left circumflex is occluded. Left circumflex is co-dominant giving rise to the posterior descending branch. 4. Right coronary artery is co-dominant vessel giving rise to posterior descending coronary artery. The right coronary artery has 90% in the mid segment and a small caliber size Coronary bypass graft angiography: 1. Left internal mammary to left anterior descending coronary is widely patent. Left anterior descending coronary is widely patent. Left anterior descending coronary artery feeds collaterals to the distal circumflex coronary artery 2. Saphenous vein graft to the right coronary is occluded 3. Saphenous vein graft to the first obtuse marginal branch is occluded 4. Saphenous vein graft to the left-sided posterior descending branch is occluded Conclusions: 1. Severe [place] three-vessel coronary disease 2. 1 of 4 coronary bypass grafts are patent. Plan: We will monitor patient for any postprocedural complications. The left anterior descending coronary circulation is fed by the left internal mammary artery. The distal right coronary artery circulation is fed by the collaterals from the left anterior descending coronary artery. The left circumflex circulation is fed by the [place] left circumflex which has severe disease. There is a chronic occlusion in the mid segment. At this point given the small caliber size and chronic occlusion, I would favor aggressive medical therapy. Tentatively if he has significant recurrence, we could consider a high risk percutaneous coronary intervention attempt at a chronic total occlusion.
--- NOTE | 2018-12-03 13:27 | CATHPROC ---
[facility] HIS Report Study Information Study Number Admission Scheduled Start Study Start [id number] Dec 01 2018 12:51PM 12/03/2018 Dec 03 2018 12:33PM Z[facility] Service Cardiac Catheterization Admit Source Facility Department Other [facility] Physician and Clinical Staff Initial Yobani Christianson Hoop Coiling Machine OperatorHailee Saez RN Hoop Coiling Machine Operator David Sanders RN Recorder Bib, Yeimi DiazRT(R) Procedures Performed Procedure Location (Site) Vessel Name Coronary Angiograms LCA Left Coronary Coronary Angiograms RCA Right Coronary Coronary Angiograms HURTADO-LAD Left Coronary L Heart Cath Wire insertion Fem Art (right) Femoral Art Equipment Time Residential Care Facility Manager Description Size Mfg Part Number Used/Scraped TRANSDUCER, TRAmpexAVE [id number] 12:39 [employer] AG * Used W/STOCKCOCK *[id number] 13:17 AOT Bedding [employer] MEDICAL VASCADE, FR5 CLOSURE SYSTEM FR 5 Used *[id number] *[id number] [id number] *[id number] [id number] *[id number] 12:39 [employer] INDUSTRIES BLANKET,WARM AIR CCL * Used *[id number] 12:39 [employer] PACK, CCL CUSTOM * Used *[id number] 12:39 [employer] PACER PEN, SKIN DUAL W/ RULER * Used *[id number] 12:39 Ur[employer]et MEDICAL WIRE, 3MMJ .035 180CM 180CM Used *[id number] 12:39 NAMIC MANIFOLD, 4 PORT * Used *[id number] 12:39 NYCOMED OMNIPAQUE, 350 MG, 150ML 150ML [id number] 12:39 E[employer]UMO MEDICAL SHEATH, FR5 TERUMO (10CM) FR 5 Used *[id number] History: Current Medications Medication Dosage/Unit Route Frequency Last Date/Time Taken ASA LIPITOR Beta Radhika PLAVIX History: Allergies Allergy Reaction Ativan Percocet RASH Sulfa HIVES Sulfa (Sulfonamide Antibiotics) HIVES lorazepam Confusion oxycodone RASH acetaminophen PT DENIES History: Risk Factors Hypertension Dyslipidemia Previous [facility] Previous Heart Failure Yes Yes Yes Yes Prior PCI Prior PCIDate Prior CABG Prior CABGDate Yes 09/06/2017 Yes 10/07/2008 Cerebrovascular Peripheral Artery Chronic Lung On Dialysis Diabetes Disease Disease Disease No No No Yes No History: Stress Tests Stress or Imaging Studies Performed No History: Other Current Smoker No Labs Hgb (g/dl) Hct (%) WBC (l/cumm) Platelets (thousands) 11.60-17.00 35.00-51.00 4.00-11.00 150.00-450.00 11.5 36.3 4.1 223 Glucose (mg/dl) BUN (mg/dl) Creatinine (mg/dl) BUN:Creatinine (1:x) 74.00-106.00 7.00-18.00 0.50-1.30 10.00-20.00 86 26 1.5 17.3 Na (meq/l) K (meq/l) 136.00-145.00 3.50-5.10 141 3.8 INR (PTT:PT) 0.90-1.10 1.1 Troponin I (ng/ml) CPK-MB (ng/ML) 0.02-0.05 0.50-3.60 0.02 Not Drawn Medication Medication Total Dose (Bolus/Oral) Medication Total Dosage/Unit 1% XYLOCAINE 8 mL FENTANYL 25 mcg VERSED 1 mg Medications (Bolus/Oral) Medication Time Given Dosage/Unit Administered By Reason VERSED 12/03/2018 1:01:45 PM 1 mg Hailee Celaya 1 mg VERSED given in lab by Hailee Celaya, RN in Left Antecubital via Peripheral IV. Ordered by Yobani Espino. FENTANYL 12/03/2018 1:02:57 PM 25 mcg Hailee Celaya 25 mcg FENTANYL given in lab by Hailee Celaya, RN in Left Antecubital via Peripheral IV. Ordered by Yobani Doan. 1% XYLOCAINE 12/03/2018 1:04:24 PM 8 mL Yobani Doan 8 mL 1% XYLOCAINE given in lab by Yobani Doan in Right Groin via Subcutaneous. Ordered by Santy Doan. Medication (Drip) Medication Time Given Dosage/Unit Concentration/Unit Diluent (ml) Solution IV Solutions 12/03/2018 12:33:14 PM 50 mL (IV) NaCl .9 Patient arrived on IV Solutions via Peripheral IV. Pump/Drip Flow using NaCl .9. Initial Case Assessment Cardiovascular HR NIBP Chest Pain 72 111/76 0 Edema Present Skin color Skin Mild Normal Warm Dry Circulatory - Right Pulses Dorsalis Pedis Femoral d 1 Scale (0,1,2,3,4,d) Circulatory - Left Pulses Dorsalis Pedis Femoral d 1 Scale (0,1,2,3,4,d) Neurological State Oriented to time-place- Alert Moves all extremities person Respiration - General Respiration Rate SpO2 (%) O2 (lpm) (B/min) 20 96 3 Final Case Assessment Cardiovascular HR NIBP Chest Pain 60 107/57 0 Edema Present Skin color Skin Mild Normal Warm Dry Circulatory - Right Pulses Dorsalis Pedis Femoral d 1 Scale (0,1,2,3,4,d) Circulatory - Left Pulses Dorsalis Pedis Femoral d 1 Scale (0,1,2,3,4,d) Neurological State Oriented to time-place- Alert Moves all extremities person Respiration - General Respiration Rate SpO2 (%) O2 (lpm) (B/min) 13 95 3 Chronological Log Time Study Chronological Log 12:32:40 Patient arrived via Bed. 12:32:51 Patient Name, D.O.B, / Armband Verified By R.N. 12:32:52 Consent signed by the physician and the patient and verified by the [employer] [facility] staff. 12:32:53 Pre-op and post- op instructions given; patient acknowledges understanding of instructions. 12:32:54 Verbal Stimulation=2 Physical Stimulation=2 Airway=2 Respiration=2 TOTAL=8. (0=absent, 1=li mited, 2=present) 12:33:08 Patient has been NPO for More than 6Hrs. 12:33:09 Skin Breakdown- none per patient 12:33:12 Louis Prominences Protected 12:33:13 A # 20 IV was noted in the Forearm (left). Grade = 0 12:33:14 Patient arrived on IV Solutions via Peripheral IV. Pump/Drip Flow using NaCl .9. 12:33:15 History and physical on the chart or being dictated. Assessment: Initial Case, HR=72 BPM, WYND=914/76 mmhg, Chest Pain=0, Edema=Mild, Color=Normal, Skin = Warm, Dry Right Pulses: Reynaldo Ped=d, Femoral=1 12:33:15 Left Pulses: Reynaldo Ped=d, Femoral=1 Neurological: State=Alert, Ox3, OLSON Respiration: Resp=20 B/min, SpO2=96 %, O2=3 lpm Vitals capture started with the following parameters, Patient=Adult, Interval=5 min, Initial Pr essure=95 mmHg, 12:39:37 Deflation Rate=5 mmHg, Cuff placed on Left Arm 12:40:21 HR=75 bpm, OFHS=987/76 mmhg, SpO2=92.0 %, Resp=15 B/min, Pain=0, Avery=10, Mcelroy=2 12:45:16 HR=69 bpm, YEPR=352/69 mmhg, SpO2=95.0 %, Resp=11 B/min, Pain=0, Avery=10, Mcelroy=2 12:49:39 Bilateral groins prepped with 2% chlorhexidine, and draped after a 3 minute waiting time. 12:50:13 JL=965 bpm, WJCY=876/77 mmhg, SpO2=94.0 %, Resp=19 B/min, Pain=0, Avery=10, Mcelroy=2 12:50:52 Reference ECG taken 12:52:32 MD paged 12:52:49 Pressure channel 1 zeroed. 12:54:46 MD responded 12:55:20 HR=60 bpm, HOIU=057/64 mmhg, SpO2=96.0 %, Resp=11 B/min, Pain=0, Avery=10, Mcelroy=2 13:00:19 HR=71 bpm, VOXP=074/69 mmhg, SpO2=96.0 %, Resp=25 B/min, Pain=0, Avery=10, Mcelroy=2 13:00:19 MD arrived. Time Out. Correct patient, correct procedure, correct physician, labs, allergies, and equipment verified with brick and blocker aid labor 13:00:37 team present. Fire risk assesment completed (see hard stop sheet for coding). Time Out Conc urred by MD and individual staff in procedure. 13:01:45 1 mg VERSED given in lab by Hailee Celaya, SAMI in Left Antecubital via Peripheral IV. Orde red by Yobani Doan. 13:02:57 25 mcg FENTANYL given in lab by Hailee Celaya, SAMI in Left Antecubital via Peripheral IV. Ordered by Yobani Doan. 13:04:22 Case Start 13:04:24 8 mL 1% XYLOCAINE given in lab by Yobani Doan in Right Groin via Subcutaneous. Ordered b y Franki Yobani. 13:05:16 HR=59 bpm, XRGX=131/63 mmhg, SpO2=93.0 %, Resp=9 B/min, Pain=0, Avery=10, Mcelroy=2 13:05:42 Access site was Right Femoral Artery. 13:05:49 A SHEATH, FR5 TERUMO (10CM) FR 5 was advanced into the Fem Art (right) using the Percutaneo us technique. A JL 4.0 INFINITI CATHETER FR 5 was advanced over a wire. OMNIPAQUE, 350 MG, 150ML 150ML was us ed for 13:06:49 injections. 13:07:27 The LCA was injected and visualized at various angles. OMNIPAQUE, 350 MG, 150ML 150ML used . Recorded Pressure: Ao, HR=60, Condition=Condition 1 13:08:27 (Aorta) Ao 96/61/77 After removing the current catheter a JR 4.0 INFINITI CATHETER FR 5 was advanced over a WIRE, 3 MMJ .035 180CM 13:09:03 180CM. 13:10:18 The RCA was injected and visualized at various angles. OMNIPAQUE, 350 MG, 150ML 150ML used . 13:10:20 HR=59 bpm, KAQC=937/62 mmhg, SpO2=92.0 %, Resp=10 B/min, Pain=0, Avery=10, Mcelroy=2 After removing the current catheter a LUIS ALFREDO INFINITI CATHETER FR 5 was advanced over a WIRE, 3MMJ .035 180CM 13:12:42 180CM. 13:13:41 The HURTADO-LAD was injected and visualized at various angles. OMNIPAQUE, 350 MG, 150ML 150ML used. 13:13:58 A WIRE, 3MMJ .035 180CM 180CM was inserted via Fem Art (right). 13:14:04 Wire removed 13:14:08 Catheter was removed 13:14:14 Case End (Physician broke scrub) 13:15:21 HR=59 bpm, RZAG=239/61 mmhg, SpO2=94.0 %, Resp=15 B/min, Pain=0, Avery=10, Mcelroy=2 13:16:03 An injection in the Fem Art (right) was made through the SHEATH, FR5 TERUMO (10CM) FR 5. 13:17:37 Catheter(s) removed without difficulty 13:17:40 VASCADE, FR5 CLOSURE SYSTEM FR 5 placement in the Fem Art (right) 13:17:47 Sterile dressing applied to site 13:17:47 No case complications noted. 13:17:48 Cine recording checked. 13:17:51 Bedside Report will be given. 13:17:53 A Left Heart Cath was performed. Assessment: Final Case, HR=60 BPM, JFSV=124/57 mmhg, Chest Pain=0, Edema=Mild, Color=Normal, S kin = Warm, Dry Right Pulses: Reynaldo Ped=d, Femoral=1 13:19:50 Left Pulses: Reynaldo Ped=d, Femoral=1 Neurological: State=Alert, Ox3, OLSON Respiration: Resp=13 B/min, SpO2=95 %, O2=3 lpm 13:20:20 HR=60 bpm, SVMW=486/57 mmhg, SpO2=94.0 %, Resp=13 B/min, Pain=0, Avery=10, Mcelroy=2 13:25:23 HR=60 bpm, XXAO=513/50 mmhg, SpO2=93.0 %, Resp=20 B/min, Pain=0, Avery=10, Mcelroy=2 13:30:00 Patient moved to [facility] End Study - Contrast Media Used In Study Contrast Total Opened (mL) Total Used (mL) Total Wasted (mL) Omnipaque 50 50 0 End Study - Maximum Contrast Load Max Contrast Load (mL) 366.7 End Study - Radiation Exposure Fluoro Time Fluoro Dose (mGy) Cine Dose (uGym2) (minutes) 2.2 1723 4233 End Study - Patient Disposition Complications Transferred To No Critical Care Bed
[2018-12-03] MEDS ORDERED: Zolpidem Tartrate 5 MG Tablet PO ONE (23:52)
[2018-12-04 04:29] LABS: Baso % (Auto) 0.9 % (0.0-2.0); Eos % (Auto) 1.1 % (0.0-4.0); Hematocrit 36.8 % (39.0-51.0); Hemoglobin 11.7 gm/dL (13.0-17.0); Lymph # (Auto) 0.6 th/mm3 (1.0-4.8); Lymph % (Auto) 14.8 % (9.0-44.0); Mean Corpuscular HGB Conc 31.8 % (32.0-36.0); Mean Corpuscular Hemoglobin 26.9 pg (27.0-34.0); Mean Corpuscular Volume 84.4 fL (80.0-100.0); Mean Platelet Volume 8.6 fL (7.0-11.0); Mono # (Auto) 0.4 th/mm3 (0.0-0.9); Mono % (Auto) 10.1 % (0.0-8.0); Neut # (Auto) 2.9 th/mm3 (1.8-7.7); Neut % (Auto) 73.1 % (16.0-70.0); Platelet Count 204 th/mm3 (150-450); Red Blood Count 4.36 mil/mm3 (4.50-5.90); Red Cell Distribution Width 16.8 % (11.6-17.2)
[2018-12-04 04:56] LABS: Alanine Aminotransferase 32 U/L (12-78); Albumin 3.1 g/dL (3.4-5.0); Anion Gap 2 meq/L (5-15); Aspartate Aminotransferase 19 U/L (15-37); Blood Urea Nitrogen 24 mg/dL (7-18); Calcium 8.7 mg/dL (8.5-10.1); Carbon Dioxide 43.8 meq/L (21.0-32.0); Chloride 97 meq/L (98-107); Glomerular Filtration Rate 40 mL/min (>89); Glucose,Random 74 mg/dL (74-106); Potassium 4.2 meq/L (3.5-5.1); Sodium 143 meq/L (136-145)
[2018-12-04 04:59] LABS: Alkaline Phosphatase 92 U/L (45-117); Total Protein 6.7 g/dL (6.4-8.2)
[2018-12-04] MEDS: Heparin - SQ 10,000 UNITS/ML Vial SQ SCH ×3 (06:13→22:44)
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
[2018-12-04] MEDS ORDERED: metOLazone 5 MG Tablet PO ONE (09:00)
[2018-12-04] MEDS: Senna/Docusate Sodium 8.6/50 MG Tablet PO SCH ×2 (09:18→21:15)
[2018-12-04] MEDS: Allopurinol 300 MG Tablet PO SCH (09:19)
[2018-12-04] MEDS: Dextrose 5%/NaCl 0.45% Inj 1,000 ML IV.CONT SCH ×2 (09:19→09:44)
[2018-12-04] MEDS: Amiodarone 200 MG Tablet PO SCH ×2 (09:19→21:15)
[2018-12-04] MEDS: Pregabalin 25 MG Capsule PO SCH ×3 (09:19→17:45)
[2018-12-04] MEDS: Famotidine 20 MG Tablet PO SCH ×2 (09:20→21:14)
[2018-12-04] MEDS: Carvedilol 12.5 MG Tablet PO SCH ×2 (09:20→21:14)
--- NOTE | 2018-12-04 09:29 | P.PNIM ---
Subjective Interval history: Status post heart catheterization, patient has only had a mild bump in his creatinine which is 1.74 today. His baseline is 1.5-1.6. AICD has fired this morning, recurrent V. tach problem remains. Amiodarone IV initiated by cardiology. Physical Exam Vital signs: Vital Signs 12/03/18 10:00 12/03/18 11:00 12/03/18 11:15 Temperature 97.5 F L Pulse Rate 59 L 59 L 60 Respiratory Rate 14 Blood Pressure 94/56 L Pulse Oximetry 94 L 12/03/18 12:00 12/03/18 13:00 12/03/18 14:00 Temperature Pulse Rate 60 60 58 L Respiratory Rate Blood Pressure Pulse Oximetry 12/03/18 15:00 12/03/18 16:00 12/03/18 17:00 Temperature 98.1 F Pulse Rate 60 62 59 L Respiratory Rate 12 Blood Pressure 93/51 L Pulse Oximetry 96 12/03/18 18:00 12/03/18 19:00 12/03/18 20:00 Temperature 97.8 F Pulse Rate 60 59 L 82 Respiratory Rate 20 Blood Pressure 107/95 H Pulse Oximetry 94 L 12/03/18 21:00 12/03/18 22:00 12/03/18 23:00 Temperature Pulse Rate 62 60 69 Respiratory Rate Blood Pressure Pulse Oximetry 12/04/18 00:00 12/04/18 01:00 12/04/18 02:00 Temperature 98.0 F Pulse Rate 59 L 59 L 60 Respiratory Rate 20 Blood Pressure 110/69 Pulse Oximetry 95 12/04/18 03:00 12/04/18 04:00 12/04/18 05:00 Temperature 97.8 F Pulse Rate 59 L 61 59 L Respiratory Rate 20 Blood Pressure 95/54 L Pulse Oximetry 95 12/04/18 06:00 12/04/18 07:00 Temperature Pulse Rate 67 61 Respiratory Rate Blood Pressure Pulse Oximetry Intake & Output 12/03/18 12/04/18 12/04/18 18:59 06:59 18:59 Intake Total 1210 / 1210 480 / 480 Output Total 1800 / 1800 1300 / 1300 Balance -590 / -590 -820 / -820 Weight 110 kg 107 kg Intake: IV 10 / 10 Heparin/NS PF Inj 1,000 ML @ 0 10 / 10 mls/hr .ROUTE .[employer] ONE Rx#: [id number] Oral 1200 / 1200 480 / 480 Output: Urine 1800 / 1800 1300 / 1300 Narrative: GENERAL: NAD, A&Ox3 HEAD: Normocephalic. NECK: Supple, trachea midline. No lymphadenopathy. EYES: No scleral icterus. No injection or drainage. CARDIOVASCULAR: Regular rate and rhythm without murmurs, gallops, or rubs. RESPIRATORY: Breath sounds equal bilaterally. No accessory muscle use. Crackles bilaterally at bases GASTROINTESTINAL: Abdomen soft, non-tender, nondistended. MUSCULOSKELETAL: No cyanosis, mild edema at bilateral lower extremities SKIN: Warm and dry. NEURO: No focal neurological deficits. Results Labs CBC & Chem 7: 12/04/18 03:39 12/04/18 03:39 Assessment and Plan Plan 58 year old male with extensive cardiac history including CAD s/p CABG, hx of [place] , history of Vtach w/ medtronic AICD who presents to the hospital from outpatient rehab for new chest pain and SOB in setting of suspected vtach episode with AICD firing. Cardiology has initiated IV amiodarone to increase his therapeutic levels quickly. Slight increase in creatinine level. Monitor renal function. Follow on telemetry. Recurrent ventricular tachycardia AICD Firing x3 Myocardial infarction history Coronary artery disease History of CABG Cardiology following Monitor on telemetry Continue Bumex Continue Coreg Continue amiodarone Continue Mexiletine Heart cath planned for 12/03/2018 Hyperlipidemia Continue present treatment Follow as an outpatient COPD No exacerbation Continue oxygen as needed Continue baseline treatments Chronic kidney disease Monitor creatinine Avoid nephrotoxins BPH Continue tamsulosin Recent RIGHT carpel tunnel release Continue PT DVT prophylaxis Heparin
[2018-12-04] MEDS: Lidocaine/D5W 2000 mg/500 mL 2,000 MG/500 ML BAG IV.CONT SCH (16:12)
--- NOTE | 2018-12-04 17:35 | ECG ---
Date Performed: 12/03/2018 Time Performed: 17:22:02 PTAGE: 58 years EKG: ATRIAL AND VENTRICULAR PACEMAKER RHYTHM Abnormal ECG NO PREVIOUS TRACING DOCTOR: Ho Connolly Interpretating Date/Time 12/04/2018 17:33:07
[2018-12-04] MEDS: ALPRAZolam 0.5 MG Tablet PO PRN (22:46)
[2018-12-05 05:47] LABS: Baso % (Auto) 0.9 % (0.0-2.0); Eos % (Auto) 1.1 % (0.0-4.0); Hematocrit 35.6 % (39.0-51.0); Hemoglobin 11.4 gm/dL (13.0-17.0); Lymph # (Auto) 0.6 th/mm3 (1.0-4.8); Mean Corpuscular HGB Conc 32.1 % (32.0-36.0); Mean Corpuscular Hemoglobin 26.8 pg (27.0-34.0); Mean Corpuscular Volume 83.3 fL (80.0-100.0); Mean Platelet Volume 8.6 fL (7.0-11.0); Mono # (Auto) 0.5 th/mm3 (0.0-0.9); Mono % (Auto) 10.8 % (0.0-8.0); Neut # (Auto) 3.1 th/mm3 (1.8-7.7); Neut % (Auto) 72.2 % (16.0-70.0); Platelet Count 188 th/mm3 (150-450); Red Blood Count 4.27 mil/mm3 (4.50-5.90); Red Cell Distribution Width 16.6 % (11.6-17.2); White Blood Count 4.3 th/mm3 (4.0-11.0)
[2018-12-05 06:09] LABS: Alanine Aminotransferase 26 U/L (12-78); Aspartate Aminotransferase 17 U/L (15-37); Blood Urea Nitrogen 31 mg/dL (7-18); Calcium 8.7 mg/dL (8.5-10.1); Chloride 92 meq/L (98-107); Glomerular Filtration Rate 32 mL/min (>89); Glucose,Random 103 mg/dL (74-106); Potassium 4.1 meq/L (3.5-5.1); Sodium 141 meq/L (136-145)
[2018-12-05 06:11] LABS: Alkaline Phosphatase 97 U/L (45-117); Anion Gap 4 meq/L (5-15)
[2018-12-05 06:12] LABS: Total Protein 6.7 g/dL (6.4-8.2)
[2018-12-05] MEDS: Heparin - SQ 10,000 UNITS/ML Vial SQ SCH ×2 (06:47→15:33)
[2018-12-05] MEDS ORDERED: Nitroglycerin SL (Override) 0.4 MG Tab SL ONE (07:29)
[2018-12-05] MEDS: ALPRAZolam 0.5 MG Tablet PO PRN ×2 (07:34→21:20)
--- NOTE | 2018-12-05 08:34 | P.PNCA ---
Subjective Interval history: Patient seen with family and RN at bedside. Received IV amiodarone times 12 hours yesterday. Continued runs of VT, started on lidocaine GTT yesterday evening. VT runs much shorter and less frequent with lidocaine drip. Decreased urine output and increased creatinine today, lower extremity swelling resolved. Complains of weakness today. Patient had some chest discomfort this morning, relieved with nitroglycerin. Accepted to [facility] yesterday, awaiting transfer. Medications and Allergies Active Medications: Active Medications Acetaminophen (Tylenol) 650 mg PO Q4H PRN PRN Reason: Temp > 100.4 Hydrocodone Bitart/Acetaminophen ([place] 10/325) 1 tab PO Q6H PRN PRN Reason: Pain1-10 Last Admin: 12/04/18 22:45 Dose: 1 tab Al Hydroxide/Mg Hydroxide (Milk Of Merline Fu) 30 ml PO Q12H PRN PRN Reason: Mild Constipation Last Admin: 12/04/18 15:16 Dose: 30 ml Albuterol (Duoneb Neb (Prn)) 1 ampul NEB Q6HR NEB PRN PRN Reason: SHORTNESS OF BREATH Last Admin: 12/05/18 00:11 Dose: 1 ampul Allopurinol (Zyloprim) 300 mg PO DAILY [facility] Last Admin: 12/04/18 09:19 Dose: 300 mg Alprazolam (Xanax) 0.5 mg PO Q6H PRN PRN Reason: Anxiety Last Admin: 12/05/18 07:34 Dose: 0.5 mg Amiodarone HCl (Cordarone) 200 mg PO BID [facility] Last Admin: 12/04/18 21:15 Dose: 200 mg Aspirin (Aspirin Chew) 81 mg PO DAILY [facility] Last Admin: 12/04/18 09:19 Dose: 81 mg Atorvastatin Calcium (Lipitor) 40 mg PO HS [facility] Last Admin: 12/04/18 21:15 Dose: 40 mg Bisacodyl (Dulcolax Supp) 10 mg RECTAL DAILY PRN PRN Reason: SEVERE CONSITIPATION Carvedilol (Coreg) 25 mg PO BID [facility] Last Admin: 12/04/18 21:14 Dose: 25 mg Clopidogrel Bisulfate (Plavix) 75 mg PO DAILY [facility] Last Admin: 12/04/18 09:20 Dose: 75 mg Famotidine (Pepcid) 20 mg PO BID [facility] Last Admin: 12/04/18 21:14 Dose: 20 mg Fluticasone/Vilanterol (Breo Ellipta 100/25 Mcg Inh) 1 puff INH DAILY [facility] Last Admin: 12/04/18 11:45 Dose: Not Given Heparin Sodium (Porcine) (Heparin Inj) 5,000 units SQ Q8H [facility] Last Admin: 12/05/18 06:47 Dose: 5,000 units Lidocaine HCl/Dextrose (Lidocaine/D5w 2000 Mg/500 Ml Premix Inj) 2,000 mg in 500 mls @ 15 mls/hr IV.CONT .Q24H [facility] Last Admin: 12/04/18 16:12 Dose: 1 mg/min, 15 mls/hr Lactulose (Lactulose Liq) 30 ml PO DAILY PRN PRN Reason: SEVERE CONSITIPATION Mexiletine HCl (Mexitil) 200 mg PO Q8H [facility] Last Admin: 12/05/18 06:48 Dose: 200 mg Ondansetron HCl (Zofran Inj) 4 mg IV.PUSH Q6H PRN PRN Reason: NAUSEA OR VOMITING Potassium Chloride (Klor-Con 10) 20 meq PO DAILY [facility] Pregabalin (Lyrica) 50 mg PO TID [facility] Last Admin: 12/04/18 17:45 Dose: 50 mg Senna/Docusate Sodium (Madelaine-Colace) 1 tab PO BID [facility] Last Admin: 12/04/18 21:15 Dose: 1 tab Sennosides (Senokot) 17.2 mg PO Q12H PRN PRN Reason: Moderate Constipation Sodium Chloride (Ns Flush) 2 ml IV.FLUSH BID [facility] Last Admin: 12/04/18 21:51 Dose: 2 ml Sodium Chloride (Ns Flush) 2 ml IV.FLUSH PRN PRN PRN Reason: FLUSH AFTER USING IV ACCESS Tamsulosin HCl (Flomax) 0.4 mg PO BID [facility] Last Admin: 12/04/18 21:14 Dose: 0.4 mg Allergies Allergy/AdvReac Type Severity Reaction Status Date / Time oxycodone Allergy Severe RASH Verified 11/12/18 06:24 Sulfa (Sulfonamide Allergy Severe HIVES Verified 11/12/18 06:24 Antibiotics) lorazepam AdvReac Severe Confusion Verified 11/12/18 06:24 Home Medications Medication Instructions Recorded Confirmed Type fluticasone-vilanterol [Breo 1 inh INHALATION DAILY 05/24/18 12/01/18 History Ellipta] ipratropium bromide 0.5 mg INHALATION Q8H PRN 05/24/18 12/01/18 History mexiletine 200 mg PO Q8H 11/12/18 12/01/18 History sennosides-docusate sodium [Senna 1 tab PO DAILY 11/12/18 12/01/18 History Plus] atorvastatin [Lipitor] 40 mg PO HS 12/01/18 12/01/18 History carvedilol [Coreg] 25 mg PO BID 12/01/18 12/01/18 History hydrocodone-acetaminophen 1 tab PO Q6H PRN 12/01/18 12/01/18 History ranitidine HCl [Zantac 75] 75 mg PO BID 12/01/18 12/01/18 History Physical Exam Vital signs: Vital Signs 12/04/18 09:00 12/04/18 10:00 12/04/18 11:00 Temperature Pulse Rate 64 61 61 Respiratory Rate Blood Pressure Pulse Oximetry 12/04/18 11:47 12/04/18 12:00 12/04/18 12:42 Temperature 98.2 F Pulse Rate 68 64 Respiratory Rate 20 9 L Blood Pressure 100/58 L Pulse Oximetry 97 12/04/18 13:00 12/04/18 14:00 12/04/18 15:00 Temperature 98.4 F Pulse Rate 61 67 64 Respiratory Rate 20 Blood Pressure 104/58 L Pulse Oximetry 12/04/18 16:00 12/04/18 17:00 12/04/18 18:00 Temperature Pulse Rate 68 66 65 Respiratory Rate Blood Pressure Pulse Oximetry 12/04/18 19:00 12/04/18 20:00 12/04/18 22:45 Temperature 97.8 F Pulse Rate 70 66 Respiratory Rate 22 20 Blood Pressure 100/62 Pulse Oximetry 96 12/04/18 23:00 12/05/18 00:12 12/05/18 03:00 Temperature 97.7 F 98.2 F Pulse Rate 106 H 66 77 Respiratory Rate 18 20 22 Blood Pressure 116/79 152/66 H Pulse Oximetry 95 98 12/05/18 04:00 12/05/18 05:00 12/05/18 06:00 Temperature Pulse Rate 72 61 64 Respiratory Rate Blood Pressure Pulse Oximetry Intake & Output 12/04/18 12/05/18 12/05/18 18:59 06:59 18:59 Intake Total 975 / 975 480 / 480 Output Total 1075 / 1075 1100 / 1100 Balance -100 / -100 -620 / -620 Weight 239 lb 3.225 oz Intake: Oral 975 / 975 480 / 480 Output: Urine 1075 / 1075 1100 / 1100 Other: Date of Last Bowel Movement 12/04/18 # Bowel Movements 1 Narrative: GENERAL: Well-developed well-nourished. In no acute distress. NECK: No carotid bruits. No JVD. CARDIOVASCULAR: Regular rate and rhythm. No murmur appreciated. RESPIRATORY: No accessory muscle use. Clear to auscultation. Breath sounds equal bilaterally. MUSCULOSKELETAL: No clubbing or cyanosis. No lower extremity edema. NEUROLOGICAL: Awake and alert. Normal speech. Results 12/05/18 05:09 12/05/18 05:09 Cardiac Enzymes 12/04/18 12/05/18 Range/Units 03:39 05:09 AST 19 17 (15-37) U/L CBC 12/04/18 12/05/18 Range/Units 03:39 05:09 WBC 4.0 4.3 (4.0-11.0) th/mm3 RBC 4.36 L 4.27 L (4.50-5.90) mil/mm3 Hgb 11.7 L 11.4 L (13.0-17.0) gm/dL Hct 36.8 L 35.6 L (39.0-51.0) % Plt Count 204 188 (150-450) th/mm3 Neut # (Auto) 2.9 3.1 (1.8-7.7) th/mm3 Lymph # (Auto) 0.6 L 0.6 L (1.0-4.8) th/mm3 [place] # (Auto) 0.4 0.5 (0.0-0.9) th/mm3 Eos # (Auto) 0.0 0.0 (0.0-0.4) th/mm3 Baso # (Auto) 0.0 0.0 (0.0-0.2) th/mm3 Comprehensive Metabolic Panel 12/04/18 12/05/18 Range/Units 03:39 05:09 Sodium 143 141 (136-145) meq/L Potassium 4.2 4.1 (3.5-5.1) meq/L Chloride 97 L 92 L (98-107) meq/L Carbon Dioxide 43.8 H Greater than 45.0 H (21.0-32.0) meq/L BUN 24 H 31 H (7-18) mg/dL Creatinine 1.74 H 2.15 H (0.60-1.30) mg/dL Calcium 8.7 8.7 (8.5-10.1) mg/dL AST 19 17 (15-37) U/L ALT 32 26 (12-78) U/L Alkaline Phosphatase 92 97 (45-117) U/L Total Protein 6.7 6.7 (6.4-8.2) g/dL Albumin 3.1 L 3.0 L (3.4-5.0) g/dL Intake and Output 12/04/18 12/05/18 12/05/18 22:59 06:59 14:59 Intake Total 975 / 975 480 / 480 Output Total 1075 / 1075 1100 / 1100 Balance -100 / -100 -620 / -620 Intake: Oral 975 / 975 480 / 480 Output: Urine 1075 / 1075 1100 / 1100 Other: Date of Last Bowel Movement 12/04/18 12/04/18 # Bowel Movements 1 Weight 239 lb 3.225 oz Assessment and Plan - Plan 58-year-old male with ischemic cardiomyopathy s/p AICD, paroxysmal VT, CAD s/p CABG x2, systolic CHF, COPD on O2, DM who presented after defibrillator fire Ventricular tachycardia s/p multiple AICD defibrillations: Refractory VT due to severe ischemic cardiomyopathy. Lidocaine GTT appears to be helping, continue for now. Continue current antiarrhythmic therapy with mexiletine, amiodarone, carvedilol. CAD: C 12/04/2018 with HURTADO-LAD patent, other 3 grafts occluded, occluded LCx. Discussed with interventional cardiology here and at [facility], recommend against high risk PCI. Continue aspirin, Plavix, statin. Chronic systolic CHF: Clinically dehydrated. Recommend IVF to 50 cc over 3 hours today, diuretic holiday today, and when creatinine starts to trend down would resume home Bumex 2 mg daily with home potassium 20 mEq daily. Severe ischemic cardiomyopathy: With refractory VT and no options for high risk PCI, needs tertiary evaluation for possible transplant vs LVAD. Awaiting transfer to [facility]. Discussed Condition With: Patient seen with Dr. Irvin
[2018-12-05] MEDS: Senna/Docusate Sodium 8.6/50 MG Tablet PO SCH ×2 (09:20→21:19)
[2018-12-05] MEDS: Amiodarone 200 MG Tablet PO SCH ×2 (09:21→21:19)
[2018-12-05] MEDS: Allopurinol 300 MG Tablet PO SCH (09:22)
[2018-12-05] MEDS: Famotidine 20 MG Tablet PO SCH ×2 (09:22→21:19)
[2018-12-05] MEDS: Pregabalin 25 MG Capsule PO SCH ×3 (09:23→17:45)
[2018-12-05] MEDS: Carvedilol 12.5 MG Tablet PO SCH ×2 (09:27→21:19)
--- NOTE | 2018-12-05 09:51 | P.DS ---
DS: Providers Date of admission: 12/01/18 12:51 Primary care physician: Dax Montana MD Consults: 12/01/18 15:46 Consult to Cardiology Routine Consulting Provider: Yobani Doan Does the patient have a Compositor Apprentice who follows them?: Yes Preferred Residential Installer:: Yobani Doan Reason for Consultation: V tach shock Notified:: Office Spoke with:: Mere Date Notified:: 12/01/18 Time Notified:: 16:45 Ordering Provider: MYARA DS: Summary Mr. Rodriguez is a 58-year-old male. He has a past history of cardiomyopathy including arrhythmia. AICD is in place secondary to history of ventricular tachycardia. Patient came into the hospital this visit due to having recurrent ventricular tachycardia episodes (3). Attempted treatments included cardiac catheterization, adjustments in amiodarone, and presently he is on a lidocaine drip. Despite interventions it appears this patient will continue to have episodes of ventricular tachycardia. Cardiovascular disease is present contributory. Consideration for cardiac transplant is a current treatment plan. Plan to discharge patient to [facility] when bed available. Patient stable for transport. Discharge when bed available, including today. Time Spent with Patient Total time spent providing and/or coordinating discharge services: Greater than 30 minutes Results Labs on day of discharge: Labs from last 24 hours 12/05/18 12/05/18 05:09 05:09 WBC 4.3 RBC 4.27 L Hgb 11.4 L Hct 35.6 L MCV 83.3 MCH 26.8 L MCHC 32.1 RDW 16.6 Plt Count 188 MPV 8.6 Neut % (Auto) 72.2 H Lymph % (Auto) 15.0 [place] % (Auto) 10.8 H Eos % (Auto) 1.1 Baso % (Auto) 0.9 Neut # (Auto) 3.1 Lymph # (Auto) 0.6 L [place] # (Auto) 0.5 Eos # (Auto) 0.0 Baso # (Auto) 0.0 WBC Differential . Differential Comment Auto diff final Sodium 141 Potassium 4.1 Chloride 92 L Carbon Dioxide Greater than 45.0 H Anion Gap 4 L BUN 31 H Creatinine 2.15 H Estimated GFR 32 L Random Glucose 103 Calcium 8.7 Total Bilirubin 0.3 AST 17 ALT 26 Alkaline Phosphatase 97 Total Protein 6.7 Albumin 3.0 L Impressions ITS Impressions Chest X-Ray 12/01/18 10:42 CONCLUSION: No significant interval change compared to the prior exam. The patchy infiltrate in the right lung base is essentially stable compared to the prior study. Discharge Plan Discharge Disposition Patient Disposition: Disch To Another Hospital Discharge Condition Condition: Serious Discharge Order Discharge Orders: Discharge Order (Routine); Ordered 12/05/18 Ordered By: Santos Boykin Discharge Details Anticipated Discharge Date: 12/05/18 Discharge Comment: Discharge to [place], when available. Physicians Team Primary Care Provider: Dax Montana Attending Provider: Santos Boykin Other Providers: Yobani Doan Rxs /Orders / Referrals /Forms Prescriptions: New hydrocodone-acetaminophen 10-325 mg Tablet 1 tab PO Q6H PRN (Reason: Pain1-10) Qty: 10 RF: 0 alprazolam [Xanax] 0.5 mg Tablet 0.5 mg PO Q6H PRN (Reason: Anxiety) Qty: 10 RF: 0 pregabalin [Lyrica] 25 mg Capsule 50 mg PO TID Qty: 90 RF: 0 acetaminophen 325 mg Tablet 650 mg PO Q4H PRN (Reason: Temp > 100.4) Qty: 1 RF: 0 bisacodyl [Bisac-Evac] 10 mg Suppository 10 mg DE DAILY PRN (Reason: Severe Consitipation) Qty: 1 RF: 0 heparin (porcine) 10,000 unit/mL Solution 5,000 units subcut Q8H Qty: 1 RF: 0 magnesium hydroxide [Milk of Magnesia] 400 mg/5 mL Suspension 30 ml PO Q12H PRN (Reason: Mild Constipation) Qty: 1 RF: 0 ondansetron HCl (PF) 4 mg/2 mL Solution 4 mg IV.PUSH Q6H PRN (Reason: Nausea Or Vomiting) Qty: 1 RF: 0 sennosides-docusate sodium [Senna Plus] 8.6-50 mg Tablet 1 tab PO BID Qty: 1 RF: 0 sennosides [Senna Lax] 8.6 mg Tablet 17.2 mg PO Q12H PRN (Reason: Moderate Constipation) Qty: 1 RF: 0 sodium chloride 0.9 % [Normal Saline Flush] Syringe 2 ml IV.FLUSH BID Qty: 1 RF: 0 sodium chloride 0.9 % [Normal Saline Flush] Syringe 2 ml IV.FLUSH PRN PRN (Reason: Flush After Using Iv Access) Qty: 1 RF: 0 allopurinol 300 mg Tablet 300 mg PO DAILY Qty: 60 RF: 0 amiodarone 200 mg Tablet 200 mg PO BID Qty: 60 RF: 0 aspirin 81 mg Tablet,Chewable 81 mg PO DAILY Qty: 30 RF: 0 atorvastatin 40 mg Tablet 40 mg PO HS Qty: 30 RF: 0 carvedilol [Coreg] 12.5 mg Tablet 25 mg PO BID Qty: 60 RF: 0 clopidogrel [Plavix] 75 mg Tablet 75 mg PO DAILY Qty: 30 RF: 0 fluticasone-vilanterol [Breo Ellipta] 100-25 mcg/dose Blister With Device 1 puff INH DAILY Qty: 1 RF: 0 mexiletine 200 mg Capsule 200 mg PO Q8H Qty: 1 RF: 0 famotidine 20 mg Tablet 20 mg PO BID Qty: 1 RF: 0 tamsulosin 0.4 mg Capsule 0.4 mg PO BID Qty: 30 RF: 0 potassium chloride [Klor-Con 10] 10 mEq Tablet Extended Release 20 meq PO DAILY Qty: 30 RF: 0 lactulose 20 gram/30 mL Solution 30 ml PO DAILY PRN (Reason: Severe Consitipation) Qty: 1 RF: 0 ipratropium-albuterol 0.5 mg-3 mg(2.5 mg base)/3 mL Solution For Nebulization 1 amp NEB Q6HR NEB PRN (Reason: Shortness Of Breath) Qty: 1 RF: 0 Continue ipratropium bromide 0.02 % Solution 0.5 mg INHALATION Q8H PRN (Reason: Shortness Of Breath) RF: 0 fluticasone-vilanterol [Breo Ellipta] 100-25 mcg/dose Blister With Device 1 inh INHALATION DAILY RF: 0 alprazolam [Xanax] 0.5 mg Tablet 0.5 mg PO Q6H PRN (Reason: Anxiety) Qty: 12 RF: 0 pregabalin [Lyrica] 50 mg Capsule 50 mg PO TID Qty: 9 RF: 0 atorvastatin [Lipitor] 40 mg Tablet 40 mg PO HS RF: 0 ranitidine HCl [Zantac 75] 75 mg Tablet 75 mg PO BID RF: 0 carvedilol [Coreg] 25 mg Tablet 25 mg PO BID RF: 0 hydrocodone-acetaminophen 10-325 mg tablet 1 tab PO Q6H PRN (Reason: Pain) RF: 0 ipratropium-albuterol 0.5 mg-3 mg(2.5 mg base)/3 mL Solution For Nebulization 1 amp NEB Q2HR NEB PRN (Reason: Wheezing) Qty: 180 RF: 0 aspirin 81 mg Tablet,Chewable 81 mg PO DAILY Qty: 30 RF: 0 bumetanide 2 mg Tablet 2 mg PO DAILY Qty: 30 RF: 0 amiodarone 200 mg Tablet 200 mg PO BID Qty: 60 RF: 0 clopidogrel [Plavix] 75 mg Tablet 75 mg PO DAILY Qty: 30 RF: 0 tamsulosin 0.4 mg Capsule,Extended Release 24hr 0.4 mg PO BID Qty: 30 RF: 0 nitroglycerin [Nitrostat] 0.4 mg Tablet, Sublingual 0.4 mg SUBLINGUAL Q5-15M PRN (Reason: Chest Pain) Qty: 100 RF: 0 allopurinol 300 mg Tablet 300 mg PO DAILY Qty: 30 RF: 0 albuterol sulfate [ProAir HFA] 90 mcg/actuation Hfa Aerosol Inhaler 1 puff INHALATION Q6H PRN (Reason: Shortness Of Breath) Qty: 1 RF: 0 potassium chloride 20 mEq Tablet Extended Release 20 meq PO DAILY Qty: 30 RF: 0 sennosides-docusate sodium [Senna Plus] 8.6-50 mg tablet 1 tab PO DAILY RF: 0 mexiletine 200 mg capsule 200 mg PO Q8H RF: 0 Referrals: Dax Montana MD [Primary Care Provider] - See Instructions Status ED Status: Left Department
[2018-12-06] MEDS: Heparin - SQ 10,000 UNITS/ML Vial SQ SCH ×2 (01:35→06:05)
[2018-12-06 05:09] LABS: Baso % (Auto) 0.8 % (0.0-2.0); Eos # (Auto) 0.1 th/mm3 (0.0-0.4); Eos % (Auto) 1.4 % (0.0-4.0); Hematocrit 33.4 % (39.0-51.0); Hemoglobin 10.8 gm/dL (13.0-17.0); Lymph # (Auto) 0.5 th/mm3 (1.0-4.8); Lymph % (Auto) 11.8 % (9.0-44.0); Mean Corpuscular HGB Conc 32.5 % (32.0-36.0); Mean Corpuscular Hemoglobin 26.6 pg (27.0-34.0); Mean Corpuscular Volume 81.7 fL (80.0-100.0); Mean Platelet Volume 8.6 fL (7.0-11.0); Mono # (Auto) 0.4 th/mm3 (0.0-0.9); Mono % (Auto) 10.4 % (0.0-8.0); Neut # (Auto) 3.2 th/mm3 (1.8-7.7); Neut % (Auto) 75.6 % (16.0-70.0); Platelet Count 156 th/mm3 (150-450); Red Blood Count 4.08 mil/mm3 (4.50-5.90); Red Cell Distribution Width 16.3 % (11.6-17.2); White Blood Count 4.2 th/mm3 (4.0-11.0)
[2018-12-06] MEDS: Lidocaine/D5W 2000 mg/500 mL 2,000 MG/500 ML BAG IV.CONT SCH (05:26)
[2018-12-06 05:29] LABS: Albumin 2.9 g/dL (3.4-5.0); Anion Gap 3 meq/L (5-15); Blood Urea Nitrogen 28 mg/dL (7-18); Calcium 8.9 mg/dL (8.5-10.1); Carbon Dioxide 42.9 meq/L (21.0-32.0); Chloride 93 meq/L (98-107); Glucose,Random 90 mg/dL (74-106); Sodium 139 meq/L (136-145)
[2018-12-06 05:34] LABS: Alanine Aminotransferase 28 U/L (12-78); Alkaline Phosphatase 92 U/L (45-117); Aspartate Aminotransferase 25 U/L (15-37); Glomerular Filtration Rate 36 mL/min (>89); Total Protein 6.5 g/dL (6.4-8.2)
[2018-12-06] MEDS: ALPRAZolam 0.5 MG Tablet PO PRN (05:59)
[2018-12-06] MEDS: Pregabalin 25 MG Capsule PO SCH (08:27)
[2018-12-06] MEDS: Carvedilol 12.5 MG Tablet PO SCH (08:27)
[2018-12-06] MEDS: Senna/Docusate Sodium 8.6/50 MG Tablet PO SCH (08:27)
[2018-12-06] MEDS: Allopurinol 300 MG Tablet PO SCH (08:27)
[2018-12-06] MEDS: Famotidine 20 MG Tablet PO SCH (08:28)
[2018-12-06] MEDS: Amiodarone 200 MG Tablet PO SCH (08:28)
[2018-12-06 09:45] VITALS: BP 111/84; RESP 18; TEMP 98.4; O2SAT 92
[2018-12-06 09:48] VITALS: PULSE 79
== END 2018-12-06 08:54 | disposition short-term general hospital (02) | DRG 287 ==
LOC: NEPD 10:21 → NEDH 12:51 → HCPC 17:16
PROVIDERS: ADMIT Hospitalist; ATTEND Hospitalist
CPT/HCPCS: 71010; 71045; 76937; 80053; 82550; 82948; 82962; 83735; 84484; 85025; 85610; 85730; 90774; 90784; 93005; 93308; 93455; 94664; 96374; 99152; 99291; C1760; C1769; C1893; C8952; G0269; J0282; J1644; J2001; J2060; J2250; J3010; J7060; Q9967